=== PATIENT | female | born 1955 | race Caucasian/White ===

== ENCOUNTER 2016-09-22 04:04 | Emergency (ER) | payer MEDICARE, MEDICAID ==
[2016-09-22] MEDS ORDERED: oxyCODONE/Acetamin 5/325 MG* TAB PO ONE ×2 (04:56→05:50)
--- NOTE | 2016-09-22 05:56 | ED ---
Xavier Perez Janilya, scribed for Kianna Conroy MD on 09/22/16 at 0449 . Lower Extremity - HPI Summary HPI Summary: A 61 y/o female was BIBA to [facility] presenting w/ a sudden onset of constant R knee pain starting a few hours ago. Severity rated 7/10. Pt states that she was going to the restroom when her right knee "gave out", causing her to fall. Pt denies head injury or LOC. Pt states it is painful to bear weight or ambulate. Rest makes the pain better. It is also painful to touch. Pt is not on blood thinners. - History of Current Complaint Chief Complaint: EDExtremityLower Stated Complaint: RIGHT KNEE PPAIN Time Seen by Provider: 09/22/16 04:10 Hx Obtained From: Patient Mechanism Of Injury: Fall From A Standing Position Onset of Pain: Hours Onset/Duration: Hours Severity Initially: Moderate Severity Currently: Moderate Pain Intensity: 7 Pain Scale Used: 0-10 Numeric Timing: Constant Associated Signs And Symptoms: Positive: Knee Pain. Negative: Fever Aggravating Factor(s): Standing, Ambulation, Movement Alleviating Factor(s): Rest Able to Bear Weight: No - Allergies/Home Medications Allergies/Adverse Reactions: Allergies Allergy/AdvReac Type Severity Reaction Status Date / Time Metoprolol [From Lopressor] Allergy Intermediate Tachycardia Verified 09/22/16 05:32 Penicillins Allergy Intermediate Rash Verified 09/22/16 05:32 Cefazolin [From Ancef] Allergy Unknown Unknown Verified 09/22/16 05:32 Reaction Details Sulfa Drugs Allergy Unknown Unknown Verified 09/22/16 05:32 Reaction Details Propofol Allergy SCREAMING Verified 09/22/16 05:32 AND THRASHING Morphine AdvReac Intermediate Vomiting Verified 09/22/16 05:32 Naproxen AdvReac Intermediate upset Verified 09/22/16 05:32 stomach, vomiting Citalopram [From Celexa] AdvReac Mild Insomnia Verified 09/22/16 05:32 Tartrazine [From Sonata] AdvReac Mild Insomnia Verified 09/22/16 05:32 Zaleplon [From Sonata] AdvReac Mild Insomnia Verified 09/22/16 05:32 NSAIDs AdvReac Ulcers, GI Verified 09/22/16 05:32 upset PMH/Surg Hx/FS Hx/Imm Hx Previously Healthy: Yes Endocrine/Hematology History: Reports: Hx Blood Transfusions, Hx Thyroid Disease Denies: Hx Anticoagulant Therapy, Hx Blood Disorders, Hx Bone Marrow Disease , Hx Diabetes, Hx Systemic Lupus Erythematosus, Hx Sickle Cell Disease, Hx Anemia, Hx Unexplained Bleeding Cardiovascular History: Reports: Hx Cardiomegaly - SINCE IN HER TEENS, Hx Congestive Heart Failure, Hx Deep Vein Thrombosis - right leg after surgery, Hx Hypercholesterolemia, Hx Hypertension - W/MEDS, Hx Pacemaker/ICD, Other Cardiovascular Problems/Disorders - BRADYCARDIA due to hypothyroidism; pacer not in use Denies: Hx Angina, Hx Coronary Artery Disease, Hx Myocardial Infarction, Hx Valvular Heart Disease Respiratory History: Reports: Other Respiratory Problems/Disorders - sob associated - inspiratory pain left ribs, abdominal distention per pt Denies: Hx Asthma, Hx Chronic Obstructive Pulmonary Disease (COPD) GI History: Reports: Hx Gastroesophageal Reflux Disease, Hx Irritable Bowel, Other GI Disorders - ABDOMEN DISTENDED Denies: Hx Cirrhosis, Hx Ulcer History: Denies: Hx Renal Disease Musculoskeletal History: Reports: Hx Back Problems - back surgery x 3, Hx Orthopedic Injury, Other Musculoskeletal History - knee, hip surgery hx Denies: Hx Bursitis, Hx Congenital Bone Abnormalities, Hx Fibromyalgia, Hx Gout, Hx Osteoporosis, Hx Scoliosis, Hx Tendonitis Sensory History: Reports: Hx Contacts or Glasses Denies: Hx Cataracts, Hx Eye Injury, Hx Eye Prosthesis, Hx Glaucoma, Hx Macular Degeneration, Hx Vision Problem, Hx Deafness, Hx Hearing Aid, Hx Hearing Problem, Other Sensory Impairments Opthamlomology History: Reports: Hx Contacts or Glasses Denies: Hx Cataracts, Hx Eye Injury, Hx Eye Prosthesis, Hx Glaucoma, Hx Macular Degeneration, Hx Vision Problem, Other Sensory Impairments Neurological History: Denies: Hx Dementia, Hx Developmental Delay, Hx Headaches, Hx Migraine, Hx Seizures, Hx Spinal Cord Injury, Hx Transient Ischemic Attacks (TIA), Other Neuro Impairments/Disorders - LOC WITH FALLL Psychiatric History: Reports: Hx Anxiety Denies: Hx Attention Deficit Hyperactivity Disorder, Hx Eating Disorder, Hx Depression, Hx Panic Disorder, Hx Post Traumatic Stress Disorder, Hx Inpatient Treatment, Hx Schizophrenia, Hx Bipolar Disorder, Hx Suicide Attempt, Hx Substance Abuse, Other Psychiatric Issues/Disorders - Cancer History Cancer Type, Location and Year: skin cancer on right leg, removed Hx Chemotherapy: No Hx Radiation Therapy: No - Surgical History Surgery Procedure, Year, and Place: left shoulder surgery Jul 08 2013 csections x 3. partial hysterectomy. 3 back surgeries. right hip REPLACEMENT. LEFT KNEE RECONSTRUCTION. PACEMAKER [id number]. 3 C- SECTIONS. RIGHT SHOULDER ROTATOR CUFF REPAIR - 15 YEARS AGO. UMBILICAL HERNIA REPAIR Hx Anesthesia Reactions: Yes - PROPOFOL REACTION- THRASHING AND SCREAMING Infectious Disease History: No Infectious Disease History: Reports: Hx Clostridium Difficile, Hx of Known/ Suspected MRSA Denies: Hx Hepatitis, Hx Human Immunodeficiency Virus (HIV), Hx Shingles, Hx Tuberculosis, Traveled Outside the [place] in Last 30 Days - Family History Known Family History: Positive: Cardiac Disease, Diabetes - Social History Lives: Alone Alcohol Use: None Hx Substance Use: No Substance Use Type: Reports: None, Prescribed Hx Tobacco Use: No Smoking Status (MU): Never Smoked Tobacco Review of Systems Negative: Fever Positive: Other - R knee pain All Other Systems Reviewed And Are Negative: Yes Physical Exam Triage Information Reviewed: Yes Vital Signs On Initial Exam: Initial Vitals Temp 96.9 F 09/22/16 04:05 Vital Signs Reviewed: Yes Appearance: Positive: Well-Appearing, No Pain Distress Skin: Positive: Warm, Skin Color Reflects Adequate Perfusion Eyes: Positive: EOMI, LOLI ENT: Positive: Pharynx normal, TMs normal Neck: Positive: Supple, Nontender Respiratory/Lung Sounds: Positive: Clear to Auscultation, Breath Sounds Present. Negative: Rales, Rhonchi, Wheezes Cardiovascular: Positive: RRR. Negative: Murmur, Rub, Other - no gallops Abdomen Description: Positive: Nontender, Soft. Negative: Distended, Guarding, Other: - no rebound Bowel Sounds: Positive: Present Musculoskeletal: Positive: Strength/ROM Intact, Other - Tenderness of right knee w/ flexion. Negative: Edema Left, Edema Right Neurological: Positive: Sensory/Motor Intact, Alert, Oriented to Person Place, Time, CN Intact II-III Psychiatric: Positive: Affect/Mood Appropriate Diagnostics - Vital Signs Vital Signs Temp Pulse Resp BP Pulse Ox 09/22/16 04:07 96.9 F 65 18 151/80 93 09/22/16 04:05 96.9 F - Laboratory Lab Statement: Any lab studies that have been ordered have been reviewed, and results considered in the medical decision making process. - Radiology knee xray Xray Interpretation: No Acute Changes - Negative exam. Radiology Interpretation Completed By: ED Physician - Dr. Conroy Lower Extremity Course/Dx - Course Course Of Treatment: A 61 y/o female was BIBA to [facility] presenting w/ a sudden onset of constant R knee pain starting a few hours ago. Severity rated 7/10. Pt states that she was going to the restroom when her right knee "gave out", causing her to fall. Pt denies head injury or LOC. Pt states it is painful to bear weight or ambulate. Rest makes the pain better. It is also painful to touch. On exam pain with Anterior drawer testing but no laxity and no effusion home with percocet and knee immobilizer. Pt is not on blood thinners. - Diagnoses Provider Diagnoses: Knee strain Discharge - Discharge Plan Condition: Stable Disposition: HOME The documentation as recorded by the Xavier espino Janilya accurately reflects the service I personally performed and the decisions made by me, Kianna Conroy MD.
[2016-09-22 06:27] VITALS: BP 140/73
--- NOTE | 2016-09-22 12:48 | RAD ---
Indication: RIGHT knee pain post fall. Comparison: October 21, 2014 Technique: AP, tunnel, crosstable lateral, sunrise views RIGHT knee. Report: Bone density appears decreased throughout. Normal alignment. Negative for joint effusion or fracture. Tricompartmental osteophytosis. Mild medial joint space narrowing. Unremarkable soft tissue contours. IMPRESSION: No traumatic injury evident. Kellgren and Farzad grade 2 osteoarthritis.
== END 2016-09-22 06:22 | disposition home or self-care (01) ==
LOC: ED 04:04
DX: S83.91XA Sprain of unspecified site of right knee, initial encounter (principal); M25.561 Pain in right knee; X58.XXXA Exposure to other specified factors, initial encounter; Y93.9 Activity, unspecified; Y92.9 Unspecified place or not applicable
CPT/HCPCS: 99283; A9270-GY

== ENCOUNTER 2016-10-05 09:05 | Emergency (ER) | payer MEDICARE, MEDICAID ==
[2016-10-05] MEDS ORDERED: Aspirin Low Dose CHEW TAB* 81 MG PO ONE (09:27)
--- NOTE | 2016-10-05 10:10 | RAD ---
INDICATION: Chest pain. COMPARISON: Comparison is made with a prior study from October 03, 2016. TECHNIQUE: A portable view of the chest was obtained. FINDINGS: The heart is mildly enlarged and unchanged. There is a dual-chamber transvenous pacemaker present. The lungs are underinflated and clear. IMPRESSION: NO EVIDENCE FOR ACUTE FINDING.
[2016-10-05 10:16] LABS: Hematocrit 40 % (35-47); Hemoglobin 12.9 g/dl (12.0-16.0); Mean Corpuscular HGB Conc 33 g/dl (31-36); Mean Corpuscular Hemoglobin 29 pg (27-31); Mean Corpuscular Volume 88 fL (80-97); Mean Platelet Volume 8 um3 (7.4-10.4); Red Blood Count 4.48 10^6/ul (4.0-5.4); Red Cell Distribution Width 17 % (10.5-15); White Blood Count 8.9 10^3/ul (3.5-10.8)
[2016-10-05] MEDS: Nitroglycerin TAB 0.4 MG* 0.4 MG TAB SL ONE ×3 (10:17→10:31)
[2016-10-05 10:32] LABS: Albumin 3.9 g/dL (3.2-5.2); BUN/Creatinine Ratio 18.8 (8-20); Calcium 9.1 mg/dL (8.6-10.3); EGFR African American 120.5 (>60); EGFR Non-African American 93.7 (>60); Total Bilirubin 0.7 mg/dL (0.2-1.0); Total Protein 7.9 g/dL (6.4-8.9); Troponin I 0.02 ng/mL (<0.04)
[2016-10-05] MEDS ORDERED: HYDROcodone/ACETAMIN 5-325 MG* 1 TAB PO ONE (11:54)
[2016-10-05] MEDS ORDERED: Iohexol 350* (CONTRAST) 500 ML MDV IV ONE (11:58)
[2016-10-05] MEDS ORDERED: HYDROcodone/ACETAMIN 5-325 MG* 1 TAB ONE (12:54)
[2016-10-05 13:04] VITALS: BP 165/73
--- NOTE | 2016-10-05 13:04 | RAD ---
INDICATION: Chest pain. COMPARISON: Comparison is made with a prior CT angiogram of the chest from October 03, 2016 and a prior chest x-ray study from October 05, 2016. TECHNIQUE: A CT angiogram of the chest was performed with intravenous following intravenous injection of 82 ml of Omnipaque 350 nonionic contrast. Contiguous axial sections were obtained from the lung apices through the lung bases. Images were reconstructed in the coronal and sagittal planes. FINDINGS: The exam is slightly limited in the left lower lobe due to motion artifact. No intraluminal filling defect or pulmonary embolism is seen. There is enlargement of the central pulmonary arteries suggestive of pulmonary artery hypertension. The heart is mildly enlarged. No pericardial effusion is present. There is a multilead transvenous pacemaker present. The thoracic aorta is normal in caliber and demonstrates homogeneous contrast opacification. No significant enlarged mediastinal or hilar lymph nodes are seen. There is mild dependent bilateral lower lobe subsegmental atelectasis. The lungs are otherwise clear. No pleural effusion is seen. Images of the upper abdomen demonstrate enlargement and diffuse fatty infiltration of the liver. There are postsurgical changes as noted in the visualized portion of the lower dorsal spine. No significant focal osseous abnormality is seen. IMPRESSION: 1. SLIGHTLY LIMITED STUDY, NO EVIDENCE FOR PULMONARY EMBOLISM. 2. HEPATOMEGALY AND HEPATIC STEATOSIS.
--- NOTE | 2016-10-05 14:17 | ED ---
Veronica Perez SooYoung, scribed for Pete Monroe MD on 10/05/16 at 0921 . HPI Chest Pain - HPI Summary HPI Summary: A 61 y/o F GABBIE presents to ED with c/o acute CP onset 0300 while asleep, pain woke her up. Associated sx: vomiting, dyspnea, dizzy, LUE numbness and tingling. Denies: anxiety, depression. She took a baby aspirin at home but was unable to keep it down. Pt states being under a lot of stress this week. PSHx: catheter placed in October/2015. Nonsmoker, nondrinker. PCP is Dr. Cavanaugh. Mild Disabilities Teacher is Dr. Hdez. - History of Current Complaint Chief Complaint: EDChestPainROMI Time Seen by Provider: 10/05/16 09:14 Onset/Duration: Started Hours Ago, Still Present Timing: Constant Initial Severity: Moderate Current Severity: Moderate Pain Intensity: 7 Pain Scale Used: 0-10 Numeric Associated Signs and Symptoms: Positive: Recent Stress, Numbness, Tingling, Dizziness, Shortness of Breath - dyspnea, Vomiting - Additional Pertinent History Primary Care Physician: [id number] - Allergy/Home Medications Allergies/Adverse Reactions: Allergies Allergy/AdvReac Type Severity Reaction Status Date / Time Metoprolol [From Lopressor] Allergy Intermediate Tachycardia Verified 10/05/16 09:18 Penicillins Allergy Intermediate Rash Verified 10/05/16 09:18 Cefazolin [From Ancef] Allergy Unknown Unknown Verified 10/05/16 09:18 Reaction Details Sulfa Drugs Allergy Unknown Unknown Verified 10/05/16 09:18 Reaction Details Propofol Allergy SCREAMING Verified 10/05/16 09:18 AND THRASHING Morphine AdvReac Intermediate Vomiting Verified 10/05/16 09:18 Naproxen AdvReac Intermediate upset Verified 10/05/16 09:18 stomach, vomiting Citalopram [From Celexa] AdvReac Mild Insomnia Verified 10/05/16 09:18 Tartrazine [From Sonata] AdvReac Mild Insomnia Verified 10/05/16 09:18 Zaleplon [From Sonata] AdvReac Mild Insomnia Verified 10/05/16 09:18 NSAIDs AdvReac Ulcers, GI Verified 10/05/16 09:18 upset PMH/Surg Hx/FS Hx/Imm Hx Previously Healthy: No Endocrine/Hematology History: Reports: Hx Blood Transfusions, Hx Thyroid Disease Denies: Hx Anticoagulant Therapy, Hx Blood Disorders, Hx Bone Marrow Disease , Hx Diabetes, Hx Systemic Lupus Erythematosus, Hx Sickle Cell Disease, Hx Anemia, Hx Unexplained Bleeding Cardiovascular History: Reports: Hx Cardiomegaly - SINCE IN HER TEENS, Hx Congestive Heart Failure, Hx Deep Vein Thrombosis - right leg after surgery, Hx Hypercholesterolemia, Hx Hypertension - W/MEDS, Hx Pacemaker/ICD, Other Cardiovascular Problems/Disorders - BRADYCARDIA due to hypothyroidism; pacer not in use Denies: Hx Angina, Hx Coronary Artery Disease, Hx Myocardial Infarction, Hx Valvular Heart Disease Respiratory History: Reports: Other Respiratory Problems/Disorders - sob associated - inspiratory pain left ribs, abdominal distention per pt Denies: Hx Asthma, Hx Chronic Obstructive Pulmonary Disease (COPD) GI History: Reports: Hx Gastroesophageal Reflux Disease, Hx Irritable Bowel, Other GI Disorders - ABDOMEN DISTENDED Denies: Hx Cirrhosis, Hx Ulcer History: Denies: Hx Renal Disease Musculoskeletal History: Reports: Hx Back Problems - back surgery x 3, Hx Orthopedic Injury, Other Musculoskeletal History - knee, hip surgery hx Denies: Hx Bursitis, Hx Congenital Bone Abnormalities, Hx Fibromyalgia, Hx Gout, Hx Osteoporosis, Hx Scoliosis, Hx Tendonitis Sensory History: Reports: Hx Contacts or Glasses Denies: Hx Cataracts, Hx Eye Injury, Hx Eye Prosthesis, Hx Glaucoma, Hx Macular Degeneration, Hx Vision Problem, Hx Deafness, Hx Hearing Aid, Hx Hearing Problem, Other Sensory Impairments Opthamlomology History: Reports: Hx Contacts or Glasses Denies: Hx Cataracts, Hx Eye Injury, Hx Eye Prosthesis, Hx Glaucoma, Hx Macular Degeneration, Hx Vision Problem, Other Sensory Impairments Neurological History: Denies: Hx Dementia, Hx Developmental Delay, Hx Headaches, Hx Migraine, Hx Seizures, Hx Spinal Cord Injury, Hx Transient Ischemic Attacks (TIA), Other Neuro Impairments/Disorders - LOC WITH FALLL Psychiatric History: Reports: Hx Anxiety Denies: Hx Attention Deficit Hyperactivity Disorder, Hx Eating Disorder, Hx Depression, Hx Panic Disorder, Hx Post Traumatic Stress Disorder, Hx Inpatient Treatment, Hx Schizophrenia, Hx Bipolar Disorder, Hx Suicide Attempt, Hx Substance Abuse, Other Psychiatric Issues/Disorders - Cancer History Cancer Type, Location and Year: skin cancer on right leg, removed Hx Chemotherapy: No Hx Radiation Therapy: No - Surgical History Surgery Procedure, Year, and Place: left shoulder surgery Feb 13 2014 csections x 3. partial hysterectomy. 3 back surgeries. right hip REPLACEMENT. LEFT KNEE RECONSTRUCTION. PACEMAKER [id number]. 3 C- SECTIONS. RIGHT SHOULDER ROTATOR CUFF REPAIR - 15 YEARS AGO. UMBILICAL HERNIA REPAIR Hx Anesthesia Reactions: Yes - PROPOFOL REACTION- THRASHING AND SCREAMING Infectious Disease History: Reports: Hx Clostridium Difficile, Hx of Known/ Suspected MRSA Denies: Hx Hepatitis, Hx Human Immunodeficiency Virus (HIV), Hx Shingles, Hx Tuberculosis - Family History Known Family History: Positive: Cardiac Disease - CAD, Diabetes, Other - Breast CA - Social History Occupation: Disabled Lives: Alone Alcohol Use: None Hx Substance Use: No Substance Use Type: Reports: None, Prescribed Hx Tobacco Use: No Smoking Status (MU): Never Smoked Tobacco Review of Systems Negative: Fever, Chills Negative: Erythema Negative: Sore Throat Positive: Chest Pain Positive: Shortness Of Breath - dyspnea. Negative: Cough Positive: Vomiting. Negative: Abdominal Pain, Nausea Negative: dysuria, hematuria Positive: Other - pos: LUE numbness/tingling. Negative: Myalgia, Edema Negative: Rash Psychological: Other - pos: dizzyness All Other Systems Reviewed And Are Negative: Yes Physical Exam - Summary Physical Exam Summary: Constitutional: Well-developed, Well-nourished, Alert. (-) Distressed Skin: Warm, Dry HENT: Normocephalic; Atraumatic Eyes: Conjunctiva normal Neck: Musculoskeletal ROM normal neck. (-) JVD, (-) Stridor, (-) Tracheal deviation Cardio: Rhythm regular, rate normal, Heart sounds normal; Intact distal pulses; The pedal pulses are 2+ and symmetric. Radial pulses are 2+ and symmetric. (-) Murmur Pulmonary/Chest wall: Effort normal. (-) Respiratory distress, (-) Wheezes, (-) Rales Abd: Soft, (-) Tenderness, (-) Distension, (-) Guarding, (-) Rebound Musculoskeletal: (-) Edema Lymph: (-) Cervical adenopathy Neuro: Alert, Oriented x3 Psych: Mood and affect Normal Triage Information Reviewed: Yes Vital Signs On Initial Exam: Initial Vitals Temp Pulse Resp BP Pulse Ox 36.8 C 59 20 156/90 95 10/05/16 09:14 10/05/16 09:14 10/05/16 09:14 10/05/16 09:14 10/05/16 09:14 Vital Signs Reviewed: Yes Diagnostics - Vital Signs Vital Signs Temp Pulse Resp BP Pulse Ox 10/05/16 13:00 59 15 97 10/05/16 12:00 62 16 165/73 96 10/05/16 11:30 60 14 155/69 96 10/05/16 11:00 59 14 158/72 96 10/05/16 10:41 66 14 158/72 96 10/05/16 10:30 69 14 143/70 95 10/05/16 10:25 64 14 156/72 96 10/05/16 10:00 14 10/05/16 09:34 96 10/05/16 09:33 60 15 96 10/05/16 09:22 60 10/05/16 09:14 36.8 C 59 20 156/90 95 - Laboratory Lab Results: Lab Results 10/05/16 10/05/16 10/05/16 Range/Units 10:07 10:07 10:07 WBC 8.9 (3.5-10.8) 10^3/ul RBC 4.48 (4.0-5.4) 10^6/ul Hgb 12.9 (12.0-16.0) g/dl Hct 40 (35-47) % MCV 88 (80-97) fL MCH 29 (27-31) pg MCHC 33 (31-36) g/dl RDW 17 H (10.5-15) % Plt Count 317 (150-450) 10^3/ul MPV 8 (7.4-10.4) um3 Neut % (Auto) 64.4 (38-83) % Lymph % (Auto) 26.3 (25-47) % [place] % (Auto) 8.2 (1-9) % Eos % (Auto) 0.6 (0-6) % Baso % (Auto) 0.5 (0-2) % Absolute Neuts (auto) 5.7 (1.5-7.7) 10^3/ul Absolute Lymphs (auto) 2.3 (1.0-4.8) 10^3/ul Absolute Monos (auto) 0.7 (0-0.8) 10^3/ul Absolute Eos (auto) 0 (0-0.6) 10^3/ul Absolute Basos (auto) 0 (0-0.2) 10^3/ul Absolute Nucleated RBC 0.01 10^3/ul Nucleated RBC % 0.1 D-Dimer, Quantitative (Less Than 230) ng/mL Sodium 137 (133-145) mmol/L Potassium 4.0 (3.5-5.0) mmol/L Chloride 101 (101-111) mmol/L Carbon Dioxide 28 (22-32) mmol/L Anion Gap 8 (2-11) mmol/L BUN 12 (6-24) mg/dL Creatinine 0.64 (0.51-0.95) mg/dL Est GFR ( Amer) 120.5 (>60) Est GFR (Non-Af Amer) 93.7 (>60) BUN/Creatinine Ratio 18.8 (8-20) Glucose 133 H (70-100) mg/dL Lactic Acid 0.9 (0.5-2.0) mmol/L Calcium 9.1 (8.6-10.3) mg/dL Total Bilirubin 0.70 (0.2-1.0) mg/dL AST 53 H (13-39) U/L ALT 43 (7-52) U/L Alkaline Phosphatase 112 H (34-104) U/L Troponin I 0.02 (<0.04) ng/mL Total Protein 7.9 (6.4-8.9) g/dL Albumin 3.9 (3.2-5.2) g/dL Globulin 4.0 (2-4) g/dL Albumin/Globulin Ratio 1.0 (1-3) 10/05/16 10/05/16 Range/Units 10:07 13:02 WBC (3.5-10.8) 10^3/ul RBC (4.0-5.4) 10^6/ul Hgb (12.0-16.0) g/dl Hct (35-47) % MCV (80-97) fL MCH (27-31) pg MCHC (31-36) g/dl RDW (10.5-15) % Plt Count (150-450) 10^3/ul MPV (7.4-10.4) um3 Neut % (Auto) (38-83) % Lymph % (Auto) (25-47) % [place] % (Auto) (1-9) % Eos % (Auto) (0-6) % Baso % (Auto) (0-2) % Absolute Neuts (auto) (1.5-7.7) 10^3/ul Absolute Lymphs (auto) (1.0-4.8) 10^3/ul Absolute Monos (auto) (0-0.8) 10^3/ul Absolute Eos (auto) (0-0.6) 10^3/ul Absolute Basos (auto) (0-0.2) 10^3/ul Absolute Nucleated RBC 10^3/ul Nucleated RBC % D-Dimer, Quantitative 469 H (Less Than 230) ng/mL Sodium (133-145) mmol/L Potassium (3.5-5.0) mmol/L Chloride (101-111) mmol/L Carbon Dioxide (22-32) mmol/L Anion Gap (2-11) mmol/L BUN (6-24) mg/dL Creatinine (0.51-0.95) mg/dL Est GFR ( Amer) (>60) Est GFR (Non-Af Amer) (>60) BUN/Creatinine Ratio (8-20) Glucose (70-100) mg/dL Lactic Acid (0.5-2.0) mmol/L Calcium (8.6-10.3) mg/dL Total Bilirubin (0.2-1.0) mg/dL AST (13-39) U/L ALT (7-52) U/L Alkaline Phosphatase (34-104) U/L Troponin I 0.03 (<0.04) ng/mL Total Protein (6.4-8.9) g/dL Albumin (3.2-5.2) g/dL Globulin (2-4) g/dL Albumin/Globulin Ratio (1-3) Result Diagrams: 10/05/16 10:07 10/05/16 10:07 Lab Statement: Any lab studies that have been ordered have been reviewed, and results considered in the medical decision making process. - Radiology CXR Xray Interpretation: No Acute Changes - Impression: No evidence for acute finding. Radiology Interpretation Completed By: Radiologist - CT CHEST CTA CT Interpretation: Positive (See Comments) - IMPRESSION: 1. SLIGHTLY LIMITED STUDY, NO EVIDENCE FOR PULMONARY EMBOLISM. 2. HEPATOMEGALY AND HEPATIC STEATOSIS. CT Interpretation Completed By: Radiologist - EKG 1 EKG Interpretation: 60 bpm, atrial paced rhythm, TWI V4-V6, ST depression V5, V6 , no STEMI EKG Comparison: No Significant Change - from 10/03/2016 Re-Evaluation - Re-Evaluation 1 Re-Evaluation Time: 13:40 Change: Unchanged Comment: Discussing results with pt. Chest Pain Course/Dx - Course Course Of Treatment: Pt is a poor historian. Pt is 61 y/o F BIBA presenting with acute CP onset 0300 that woke her from sleep. Associated sx: vomiting, dyspnea, dizzy, LUE numbness and tingling. She took a baby aspirin at home but was unable to keep it down. Pt states being under a lot of stress this week. PSHx: catheter. Nonsmoker, nondrinker. PCP is Dr. Cavanaugh. Mild Disabilities Teacher is Dr. Hdez. Pt given aspirin, Nitro in ED. CXR is negative. Two trops are negative. Chest CTA shows "1. SLIGHTLY LIMITED STUDY, NO EVIDENCE FOR PULMONARY EMBOLISM. 2. HEPATOMEGALY AND HEPATIC STEATOSIS." Pt's pain is reproducible with movement. After multiple consults, Dr. Alex, cardiology, recommends D/C home. Dr. Summers, hospitalist, recommended D/C based on knowledge of patient's presentation today and work up two days ago. Pt had a negative cardiac cath in 10/2015. Will D/C home to f/u with PCP on Friday. Dr. Alex felt that the nuclear stress test represented artifact/attenuation due to breast tissue rather than ischemia. The patient was very strongly encouraged to return to the ED for any changing, persistent or worsening symptoms for further workup. - Diagnoses Provider Diagnoses: Chest pain - Provider Notifications Discussed Care Of Patient With: 1006: Spoke to Dr. Alex, cardiology, need records of her cardiac catheter. 1100: Spoke to Dr. Alex, recommends admission and cardiac cath on Friday. 1106: Spoke to Dr. Summers. She declines admission based on her knowledge of pt today and previous workup. 1120: Spoke to Dr. Alex: after obtaining new info regarding cardiac cath in 2015, felt risk for acute coronary syndrome was very low, recommends D/C. Discharge - Discharge Plan Condition: Stable Disposition: HOME Patient Education Materials: Chest Pain (ED) Referrals: Olga Cavanaugh MD [Primary Care Provider] - 2 Days (Follow up on Friday.) Additional Instructions: Return to the emergency department for changing or worsening symptoms. Follow up with primary care provider on Friday. The documentation as recorded by the Veronica espino SooYoung accurately reflects the service I personally performed and the decisions made by me, Pete Monroe MD.
--- NOTE | 2016-10-05 16:02 | CONS ---
CC: Dr. Olga Cavanaugh; Dr. Abelino Hdez. CARDIOLOGY CONSULTATION: DATE OF CONSULTATION: 10/05/16 INDICATION FOR CONSULTATION: Chest pain. HISTORY OF PRESENT ILLNESS: The patient is a 61-year-old female with a history of diabetes, obesity, hypertension, bradycardia, who was admitted to the emergency room with chest pain. The patient states she awoke at 3:30 in the morning with severe chest pain, it was a crushing chest pain in the center of her chest. It radiated to her left jaw and shoulder. She rated the discomfort as 6/10, and she immediately called the ambulance. On arrival to the emergency room, she had chest pain that was in the center of her chest. She did not had any radiation at that time. She was given sublingual nitroglycerin and morphine , which improved her chest pain. The patient was recently admitted to the hospital here at [facility] last week with chest pain. She underwent a chemical nuclear stress test, which showed a thick anterior wall defect that reversed with attenuation correction. Her LV function was normal at 63%. She had no wall motion abnormality. She had mildly elevated TID at 1.29. The patient did have a cardiac catheterization in 2010 at [facility] in [place], [place] , which was normal. She also had a cardiac catheterization at [facility] in October 2015, which showed normal coronary arteries. PAST MEDICAL HISTORY: Significant for hypertension, hypothyroidism, hyperlipidemia, obesity, irritable bowel syndrome. She had knee replacement surgery in May 2006. OUTPATIENT MEDICATIONS: Avapro 150 mg a day, aspirin 81 mg a day, multivitamin a day, levothyroxine 75 mcg a day, Lasix 40 mg a day, Ambien 10 mg at night p.r.n., simvastatin 40 mg a day, oxycodone p.r.n., metformin 1000 mg b.i.d. ALLERGIES: She is intolerant of ANCEF, LOPRESSOR, MORPHINE, CIPRO, and SULFA MEDICATIONS. SOCIAL HISTORY: She lives alone. She denied tobacco or alcohol use. Her healthcare proxy is her sister. REVIEW OF SYSTEMS: Negative for fevers and chills. Negative for changes in bowel or bladder habits. PHYSICAL EXAMINATION: Height is 5 feet 4 inches, weight is 165 pounds. Sclerae anicteric. Oropharynx is pink without erythema. Carotids are 2+ without bruits. JVD is normal. Thyroid is normal. Cardiac Exam: S1, S2 without any murmurs, rubs, or gallops. Lungs are clear to auscultation bilaterally. No dullness to percussion. Abdomen is obese, soft, nontender, and nondistended with normoactive bowel sounds. Extremities show no edema. She has 2+ pulses throughout. The patient is awake, alert, and oriented. She moves all 4 extremities equally. LABORATORY STUDIES: CBC within normal limits. Chemistries within normal limits. Troponin is normal at 0.02. EKG demonstrates normal sinus rhythm with T-wave inversions in V4 through V6 with slightly prolonged QT interval. The patient did have a CT angiogram of her chest on 10/03/16, which was negative for pulmonary embolism. IMPRESSION: This is a 61-year-old female admitted to the emergency room with chest pain. The patient was just recently in the hospital with chest pain. She had an abnormal stress test as described above; however, her nuclear images show a fixed defect in her anterior wall, which completely reverses with attenuation from correction. I think her anterior fixed defect is due to soft tissue attenuation and not due to true ischemia. The patient has a normal cardiac catheterization in October 2015, and a normal cardiac catheterization in 2010 at [facility]. At this point, I do not think the patient's chest pain is cardiac in origin. It is not due to cardiac ischemia. There is no evidence of pericarditis. At this point, the patient was treated for her noncardiac chest pain through the emergency room. [id number] #: [id number] MTDD
== END 2016-10-05 14:34 | disposition home or self-care (01) ==
LOC: ED 09:05
DX: R07.9 Chest pain, unspecified (principal); Z85.828 Personal history of other malignant neoplasm of skin; Z88.0 Allergy status to penicillin; Z88.2 Allergy status to sulfonamides; F41.9 Anxiety disorder, unspecified
CPT/HCPCS: 36415; 71010; 71275; 80053; 83605; 84484; 85025; 85379; 93005; 99284; A9270-GY; Q9967

== ENCOUNTER 2016-10-16 20:29 | Emergency (ER) | payer MEDICARE, MEDICAID ==
[2016-10-16 21:50] LABS: Hematocrit 39 % (35-47); Hemoglobin 12.5 g/dl (12.0-16.0); Mean Corpuscular HGB Conc 32 g/dl (31-36); Mean Corpuscular Hemoglobin 29 pg (27-31); Mean Corpuscular Volume 88 fL (80-97); Mean Platelet Volume 8 um3 (7.4-10.4); Red Blood Count 4.36 10^6/ul (4.0-5.4); Red Cell Distribution Width 18 % (10.5-15); White Blood Count 8.3 10^3/ul (3.5-10.8)
[2016-10-16 22:05] LABS: Albumin 3.9 g/dL (3.2-5.2); BUN/Creatinine Ratio 14.8 (8-20); Calcium 9.3 mg/dL (8.6-10.3); EGFR African American 127.4 (>60); EGFR Non-African American 99.1 (>60); Globulin 3.7 g/dL (2-4); Magnesium 1.8 mg/dL (1.9-2.7); Potassium 3.6 mmol/L (3.5-5.0); Total Bilirubin 0.8 mg/dL (0.2-1.0); Total Protein 7.6 g/dL (6.4-8.9)
[2016-10-16 22:08] LABS: Troponin I 0.03 ng/mL (<0.04)
[2016-10-16 22:33] LABS: TSH (Thyroid Stimulating Horm) 0.71 mcIU/mL (0.34-5.60)
--- NOTE | 2016-10-16 22:39 | RAD ---
INDICATION: Syncope COMPARISON: Most recent CT of the brain is dated July 06, 2015 TECHNIQUE: Contiguous axial sections of the brain were obtained from the skull base to the vertex without contrast. FINDINGS: The ventricles, cisterns and sulci are within normal limits. The freeman-white matter differentiation is adequately maintained and there is no sulcal effacement. No significant focal abnormality or mass effect is present. There is no evidence for intracranial hemorrhage. No significant focal osseous abnormality is present. The mastoid air cells are well-aerated. Again seen is near complete opacification of the left sphenoid sinus. IMPRESSION: 1. No calvarial fracture or acute intracranial hemorrhage. 2. 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 Further characterization could be made with direct visualization.
--- NOTE | 2016-10-16 23:08 | ED ---
Fercho Perez Benjamin, scribed for Calvin Lopez MD on 10/16/16 at 2131 . Syncope/Near Syncope - HPI Summary HPI Summary: 61yo female who has been having CP for about a week now. Today, pt had a syncopal episode while walking. Pt hit her head on the right side upon passing out. Pt also states she hasnt been feeling good for a week. - History Of Current Complaint Chief Complaint: EDChestPainROMI Time Seen by Provider: 10/16/16 21:25 Hx Obtained From: Patient Onset/Duration: Sudden Onset, Lasting Minutes, Still Present Timing: Intermittent Episode Lasting Context: Unwitnessed Activity At Onset: Other - walking Associated Head Trauma: Yes Aggravating Factor(s): Nothing Alleviating Factor(s): Nothing Associated Signs And Symptoms: Chest Pain, Weakness - Allergies/Home Medications Allergies/Adverse Reactions: Allergies Allergy/AdvReac Type Severity Reaction Status Date / Time Metoprolol [From Lopressor] Allergy Intermediate Tachycardia Verified 10/16/16 20:43 Penicillins Allergy Intermediate Rash Verified 10/16/16 20:43 Cefazolin [From Ancef] Allergy Unknown Unknown Verified 10/16/16 20:43 Reaction Details Sulfa Drugs Allergy Unknown Unknown Verified 10/16/16 20:43 Reaction Details Propofol Allergy SCREAMING Verified 10/16/16 20:43 AND THRASHING Morphine AdvReac Intermediate Vomiting Verified 10/16/16 20:43 Naproxen AdvReac Intermediate upset Verified 10/16/16 20:43 stomach, vomiting Citalopram [From Celexa] AdvReac Mild Insomnia Verified 10/16/16 20:43 Tartrazine [From Sonata] AdvReac Mild Insomnia Verified 10/16/16 20:43 Zaleplon [From Sonata] AdvReac Mild Insomnia Verified 10/16/16 20:43 NSAIDs AdvReac Ulcers, GI Verified 10/16/16 20:43 upset PMH/Surg Hx/FS Hx/Imm Hx Endocrine/Hematology History: Reports: Hx Blood Transfusions, Hx Thyroid Disease Denies: Hx Anticoagulant Therapy, Hx Blood Disorders, Hx Bone Marrow Disease , Hx Diabetes, Hx Systemic Lupus Erythematosus, Hx Sickle Cell Disease, Hx Anemia, Hx Unexplained Bleeding Cardiovascular History: Reports: Hx Cardiomegaly - SINCE IN HER TEENS, Hx Congestive Heart Failure, Hx Deep Vein Thrombosis - right leg after surgery, Hx Hypercholesterolemia, Hx Hypertension - W/MEDS, Hx Pacemaker/ICD, Other Cardiovascular Problems/Disorders - BRADYCARDIA due to hypothyroidism; pacer not in use Denies: Hx Angina, Hx Coronary Artery Disease, Hx Myocardial Infarction, Hx Valvular Heart Disease Respiratory History: Reports: Other Respiratory Problems/Disorders - sob associated - inspiratory pain left ribs, abdominal distention per pt Denies: Hx Asthma, Hx Chronic Obstructive Pulmonary Disease (COPD) GI History: Reports: Hx Gastroesophageal Reflux Disease, Hx Irritable Bowel, Other GI Disorders - ABDOMEN DISTENDED Denies: Hx Cirrhosis, Hx Ulcer History: Denies: Hx Renal Disease Musculoskeletal History: Reports: Hx Back Problems - back surgery x 3, Hx Orthopedic Injury, Other Musculoskeletal History - knee, hip surgery hx Denies: Hx Bursitis, Hx Congenital Bone Abnormalities, Hx Fibromyalgia, Hx Gout, Hx Osteoporosis, Hx Scoliosis, Hx Tendonitis Sensory History: Reports: Hx Contacts or Glasses Denies: Hx Cataracts, Hx Eye Injury, Hx Eye Prosthesis, Hx Glaucoma, Hx Macular Degeneration, Hx Vision Problem, Hx Deafness, Hx Hearing Aid, Hx Hearing Problem, Other Sensory Impairments Opthamlomology History: Reports: Hx Contacts or Glasses Denies: Hx Cataracts, Hx Eye Injury, Hx Eye Prosthesis, Hx Glaucoma, Hx Macular Degeneration, Hx Vision Problem, Other Sensory Impairments Neurological History: Denies: Hx Dementia, Hx Developmental Delay, Hx Headaches, Hx Migraine, Hx Seizures, Hx Spinal Cord Injury, Hx Transient Ischemic Attacks (TIA), Other Neuro Impairments/Disorders - LOC WITH FALLL Psychiatric History: Reports: Hx Anxiety Denies: Hx Attention Deficit Hyperactivity Disorder, Hx Eating Disorder, Hx Depression, Hx Panic Disorder, Hx Post Traumatic Stress Disorder, Hx Inpatient Treatment, Hx Schizophrenia, Hx Bipolar Disorder, Hx Suicide Attempt, Hx Substance Abuse, Other Psychiatric Issues/Disorders - Cancer History Cancer Type, Location and Year: skin cancer on right leg, removed Hx Chemotherapy: No Hx Radiation Therapy: No - Surgical History Surgery Procedure, Year, and Place: left shoulder surgery Jul 08 2013 csections x 3. partial hysterectomy. 3 back surgeries. right hip REPLACEMENT. LEFT KNEE RECONSTRUCTION. PACEMAKER [id number]. 3 C- SECTIONS. RIGHT SHOULDER ROTATOR CUFF REPAIR - 15 YEARS AGO. UMBILICAL HERNIA REPAIR Hx Anesthesia Reactions: Yes - PROPOFOL REACTION- THRASHING AND SCREAMING Infectious Disease History: Yes Infectious Disease History: Reports: Hx Clostridium Difficile, Hx of Known/ Suspected MRSA Denies: Hx Hepatitis, Hx Human Immunodeficiency Virus (HIV), Hx Shingles, Hx Tuberculosis, Traveled Outside the [place] in Last 30 Days - Family History Known Family History: Positive: Cardiac Disease - CAD, Diabetes, Other - Breast CA - Social History Occupation: Disabled Lives: Alone Alcohol Use: None Hx Substance Use: No Substance Use Type: Reports: None, Prescribed Hx Tobacco Use: No Smoking Status (MU): Never Smoked Tobacco Review of Systems Constitutional: Negative Eyes: Negative ENT: Negative Positive: Chest Pain Respiratory: Negative Gastrointestinal: Negative Genitourinary: Negative Musculoskeletal: Negative Skin: Negative Neurological: Other - head injury Positive: Weakness, Syncope Psychological: Normal All Other Systems Reviewed And Are Negative: Yes Physical Exam Triage Information Reviewed: Yes Vital Signs On Initial Exam: Initial Vitals Temp Pulse Resp BP Pulse Ox 98.6 F 60 18 186/74 96 10/16/16 20:39 10/16/16 20:39 10/16/16 20:39 10/16/16 20:39 10/16/16 20:39 Vital Signs Reviewed: Yes Appearance: Positive: Well-Appearing, No Pain Distress Skin: Positive: Warm Head/Face: Positive: Normal Head/Face Inspection Eyes: Positive: EOMI, LOLI ENT: Positive: Hearing grossly normal Neck: Positive: Supple Respiratory/Lung Sounds: Positive: Breath Sounds Present Cardiovascular: Positive: RRR Abdomen Description: Positive: Nontender, Soft Bowel Sounds: Positive: Present Musculoskeletal: Positive: Strength/ROM Intact Neurological: Positive: Normal Gait Psychiatric: Positive: Affect/Mood Appropriate Diagnostics - Vital Signs Vital Signs Temp Pulse Resp BP Pulse Ox 10/16/16 20:39 98.6 F 60 18 186/74 96 - Laboratory Lab Results: Lab Results 10/16/16 10/16/16 10/16/16 Range/Units 21:41 21:41 21:41 WBC 8.3 (3.5-10.8) 10^3/ul RBC 4.36 (4.0-5.4) 10^6/ul Hgb 12.5 (12.0-16.0) g/dl Hct 39 (35-47) % MCV 88 (80-97) fL MCH 29 (27-31) pg MCHC 32 (31-36) g/dl RDW 18 H (10.5-15) % Plt Count 322 (150-450) 10^3/ul MPV 8 (7.4-10.4) um3 Neut % (Auto) 65.8 (38-83) % Lymph % (Auto) 25.5 (25-47) % [place] % (Auto) 7.7 (1-9) % Eos % (Auto) 0.5 (0-6) % Baso % (Auto) 0.5 (0-2) % Absolute Neuts (auto) 5.5 (1.5-7.7) 10^3/ul Absolute Lymphs (auto) 2.1 (1.0-4.8) 10^3/ul Absolute Monos (auto) 0.6 (0-0.8) 10^3/ul Absolute Eos (auto) 0 (0-0.6) 10^3/ul Absolute Basos (auto) 0 (0-0.2) 10^3/ul Absolute Nucleated RBC 0.01 10^3/ul Nucleated RBC % 0.1 Sodium 141 (133-145) mmol/L Potassium 3.6 (3.5-5.0) mmol/L Chloride 99 L (101-111) mmol/L Carbon Dioxide 29 (22-32) mmol/L Anion Gap 13 H (2-11) mmol/L BUN 9 (6-24) mg/dL Creatinine 0.61 (0.51-0.95) mg/dL Est GFR ( Amer) 127.4 (>60) Est GFR (Non-Af Amer) 99.1 (>60) BUN/Creatinine Ratio 14.8 (8-20) Glucose 121 H (70-100) mg/dL Lactic Acid 1.1 (0.5-2.0) mmol/L Calcium 9.3 (8.6-10.3) mg/dL Magnesium 1.8 L (1.9-2.7) mg/dL Total Bilirubin 0.80 (0.2-1.0) mg/dL AST 41 H (13-39) U/L ALT 28 (7-52) U/L Alkaline Phosphatase 105 H (34-104) U/L Troponin I 0.03 (<0.04) ng/mL Total Protein 7.6 (6.4-8.9) g/dL Albumin 3.9 (3.2-5.2) g/dL Globulin 3.7 (2-4) g/dL Albumin/Globulin Ratio 1.1 (1-3) TSH 0.71 (0.34-5.60) mcIU/mL Result Diagrams: 10/16/16 21:41 10/16/16 21:41 Lab Statement: Any lab studies that have been ordered have been reviewed, and results considered in the medical decision making process. - CT Brain CT CT Interpretation: No Acute Changes - IMPRESSION: 1. No calvarial fracture or acute intracranial hemorrhage. 2. 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 Further characterization could be made with direct visualization. CT Interpretation Completed By: Radiologist Re-Evaluation - Re-Evaluation First Eval Change: Improved - pain free, cardiac cath 2016, nl coronaries, will d/c f/u pcp Course/Dx - Diagnoses Provider Diagnoses: Chest pain Discharge - Discharge Plan Condition: Stable Disposition: HOME Patient Education Materials: Chest Pain (ED) Referrals: Olga Cavanaugh MD [Primary Care Provider] - The documentation as recorded by the Fercho espino Benjamin accurately reflects the service I personally performed and the decisions made by , Calvin Lopez MD.
[2016-10-17 01:30] VITALS: BP 120/65
== END 2016-10-17 01:26 | disposition home or self-care (01) ==
LOC: ED 20:29
DX: R07.9 Chest pain, unspecified (principal); I51.7 Cardiomegaly; E78.00 Pure hypercholesterolemia, unspecified; I50.9 Heart failure, unspecified; I10 Essential (primary) hypertension; Z95.810 Presence of automatic (implantable) cardiac defibrillator; E03.9 Hypothyroidism, unspecified
CPT/HCPCS: 36415; 70450; 80053; 83605; 83735; 84443; 84484; 85025; 93005; 99283

== ENCOUNTER 2016-12-31 04:53 | Emergency (ER) | payer MEDICARE, MEDICAID ==
[2016-12-31] MEDS ORDERED: NS 0.9% 1000 ML* 1,000 ML IV ONE (05:04)
[2016-12-31] MEDS ORDERED: Morphine INJ* 4 MG/ML 1 ML SYRINGE IV ONE ×2 (05:15→06:17)
[2016-12-31 05:41] LABS: Hematocrit 35 % (35-47); Hemoglobin 11.5 g/dl (12.0-16.0); Mean Corpuscular HGB Conc 33 g/dl (31-36); Mean Corpuscular Hemoglobin 30 pg (27-31); Mean Corpuscular Volume 93 fL (80-97); Mean Platelet Volume 8 um3 (7.4-10.4); Red Blood Count 3.79 10^6/ul (4.0-5.4); Red Cell Distribution Width 17 % (10.5-15); White Blood Count 8.4 10^3/ul (3.5-10.8)
[2016-12-31 05:59] LABS: Albumin 3.9 g/dL (3.2-5.2); BUN/Creatinine Ratio 20.9 (8-20); Calcium 9.3 mg/dL (8.6-10.3); EGFR African American 114.3 (>60); EGFR Non-African American 88.9 (>60); Globulin 3.5 g/dL (2-4); Potassium 4.3 mmol/L (3.5-5.0); Total Bilirubin 0.5 mg/dL (0.2-1.0); Total Protein 7.4 g/dL (6.4-8.9)
[2016-12-31 06:01] LABS: Troponin I 0.03 ng/mL (<0.04)
[2016-12-31] MEDS ORDERED: LORazepam INJ* 2 MG/ML 1 ML VIAL IV PUSH ONE (06:17)
--- NOTE | 2016-12-31 06:42 | ED ---
I, Oh,Soohyun, scribed for Kevin Henley MD on 12/31/16 at 0515 . HPI Chest Pain - HPI Summary HPI Summary: This 61 y/o female presents to ED for left anterior chest pain since tonight. Positive SOB, BLE edema, and diffuse "blisters" BLE. Pt was last seen in September 2016 for similar complaint. PMHx includes CAD, HTN, HLD. Gallbladder still intact. Pt denies any stent placement or MS. Per EMR there has been two stent placements. NTG given INTELLIGENCE SPECIALIST as EMS did little to alleviate the pain. She is on daily baby ASA. Negative fever or chills. Positive head congestion. - History of Current Complaint Chief Complaint: EDChestPainROMI Time Seen by Provider: 12/31/16 05:01 Hx Obtained From: Patient, Medical Records Onset/Duration: Started Hours Ago, Atraumatic, Still Present Timing: Constant Chest Pain Location: Left Anterior Chest Pain Radiates: Yes Chest Pain Radiates To:: Jaw - left Character: Pressure/Squeezing Aggravating Factor(s): Nothing Alleviating Factor(s): Nothing Associated Signs and Symptoms: Positive: Chest Pain, Shortness of Breath. Negative: Fever, Cough, Productive Cough, Nonproductive Cough - Additional Pertinent History Primary Care Physician: [id number] - Allergy/Home Medications Allergies/Adverse Reactions: Allergies Allergy/AdvReac Type Severity Reaction Status Date / Time Metoprolol [From Lopressor] Allergy Intermediate Tachycardia Verified 10/16/16 20:43 Penicillins Allergy Intermediate Rash Verified 10/16/16 20:43 Cefazolin [From Ancef] Allergy Unknown Unknown Verified 10/16/16 20:43 Reaction Details Sulfa Drugs Allergy Unknown Unknown Verified 10/16/16 20:43 Reaction Details Propofol Allergy SCREAMING Verified 10/16/16 20:43 AND THRASHING Morphine AdvReac Intermediate Vomiting Verified 10/16/16 20:43 Naproxen AdvReac Intermediate upset Verified 10/16/16 20:43 stomach, vomiting Citalopram [From Celexa] AdvReac Mild Insomnia Verified 10/16/16 20:43 Tartrazine [From Sonata] AdvReac Mild Insomnia Verified 10/16/16 20:43 Zaleplon [From Sonata] AdvReac Mild Insomnia Verified 10/16/16 20:43 NSAIDs AdvReac Ulcers, GI Verified 10/16/16 20:43 upset PMH/Surg Hx/FS Hx/Imm Hx Endocrine/Hematology History: Reports: Hx Blood Transfusions, Hx Thyroid Disease Denies: Hx Anticoagulant Therapy, Hx Blood Disorders, Hx Bone Marrow Disease , Hx Diabetes, Hx Systemic Lupus Erythematosus, Hx Sickle Cell Disease, Hx Anemia, Hx Unexplained Bleeding Cardiovascular History: Reports: Hx Cardiomegaly - SINCE IN HER TEENS, Hx Congestive Heart Failure, Hx Deep Vein Thrombosis - right leg after surgery, Hx Hypercholesterolemia, Hx Hypertension - W/MEDS, Hx Pacemaker/ICD, Other Cardiovascular Problems/Disorders - BRADYCARDIA due to hypothyroidism; pacer not in use Denies: Hx Angina, Hx Coronary Artery Disease, Hx Myocardial Infarction, Hx Valvular Heart Disease Respiratory History: Reports: Other Respiratory Problems/Disorders - sob associated - inspiratory pain left ribs, abdominal distention per pt Denies: Hx Asthma, Hx Chronic Obstructive Pulmonary Disease (COPD) GI History: Reports: Hx Gastroesophageal Reflux Disease, Hx Irritable Bowel, Other GI Disorders - ABDOMEN DISTENDED Denies: Hx Cirrhosis, Hx Ulcer History: Denies: Hx Renal Disease Musculoskeletal History: Reports: Hx Back Problems - back surgery x 3, Hx Orthopedic Injury, Other Musculoskeletal History - knee, hip surgery hx Denies: Hx Bursitis, Hx Congenital Bone Abnormalities, Hx Fibromyalgia, Hx Gout, Hx Osteoporosis, Hx Scoliosis, Hx Tendonitis Sensory History: Reports: Hx Contacts or Glasses Denies: Hx Cataracts, Hx Eye Injury, Hx Eye Prosthesis, Hx Glaucoma, Hx Macular Degeneration, Hx Vision Problem, Hx Deafness, Hx Hearing Aid, Hx Hearing Problem, Other Sensory Impairments Opthamlomology History: Reports: Hx Contacts or Glasses Denies: Hx Cataracts, Hx Eye Injury, Hx Eye Prosthesis, Hx Glaucoma, Hx Macular Degeneration, Hx Vision Problem, Other Sensory Impairments Neurological History: Denies: Hx Dementia, Hx Developmental Delay, Hx Headaches, Hx Migraine, Hx Seizures, Hx Spinal Cord Injury, Hx Transient Ischemic Attacks (TIA), Other Neuro Impairments/Disorders - LOC WITH FALLL Psychiatric History: Reports: Hx Anxiety Denies: Hx Attention Deficit Hyperactivity Disorder, Hx Eating Disorder, Hx Depression, Hx Panic Disorder, Hx Post Traumatic Stress Disorder, Hx Inpatient Treatment, Hx Schizophrenia, Hx Bipolar Disorder, Hx Suicide Attempt, Hx Substance Abuse, Other Psychiatric Issues/Disorders - Cancer History Cancer Type, Location and Year: skin cancer on right leg, removed Hx Chemotherapy: No Hx Radiation Therapy: No - Surgical History Surgery Procedure, Year, and Place: left shoulder surgery Jul 08 2013 csections x 3. partial hysterectomy. 3 back surgeries. right hip REPLACEMENT. LEFT KNEE RECONSTRUCTION. PACEMAKER [id number]. 3 C- SECTIONS. RIGHT SHOULDER ROTATOR CUFF REPAIR - 15 YEARS AGO. UMBILICAL HERNIA REPAIR Hx Anesthesia Reactions: Yes - PROPOFOL REACTION- THRASHING AND SCREAMING Infectious Disease History: Reports: Hx Clostridium Difficile, Hx of Known/ Suspected MRSA Denies: Hx Hepatitis, Hx Human Immunodeficiency Virus (HIV), Hx Shingles, Hx Tuberculosis, Traveled Outside the [place] in Last 30 Days - Family History Known Family History: Positive: Cardiac Disease - CAD, Diabetes, Other - Breast CA - Social History Alcohol Use: None Hx Substance Use: No Substance Use Type: Reports: None, Prescribed Hx Tobacco Use: No Smoking Status (MU): Never Smoked Tobacco Review of Systems Negative: Fever Positive: Chest Pain Positive: Shortness Of Breath. Negative: Cough Positive: Abdominal Pain - abd distension All Other Systems Reviewed And Are Negative: Yes Physical Exam - Summary Physical Exam Summary: The patient is obese in moderate distress. HEENT: The head is normocephalic and atraumatic. The pupils are equal and reactive. The conjunctivae are clear and without drainage. Nares are patent and without drainage. Mouth reveals moist mucous membranes and the throat is without erythema and exudate. The external ears are intact. The ear canals are patent and without drainage. The tympanic membranes are intact. Neck is supple with full range of motion and non-tender. There are no carotid bruits. There is no neck vein distension. Respiratory: Chest is non-tender. Lungs are clear to auscultation and breath sounds are decreased. Cardiovascular: Heart is regular rate and rhythm. There is no murmur or rub auscultated. There is no peripheral edema and pulses are symmetrical and equal. Abdomen: The abdomen is soft, obese, and non-tender. There are normal bowel sounds heard in all four quadrants and there is no organomegaly palpated. Musculoskeletal: There is no back pain noted. Extremities are non-tender with full range of motion. There is good capillary refill. Bilat leg edema Neurological: Patient is alert and oriented to person, place and time. The patient has symmetrical motor strength in all four extremities. Cranial nerves are grossly intact. Deep tendon reflexes are symmetrical and equal in all four extremities. Psychiatric: The patient is anxious. Triage Information Reviewed: Yes Vital Signs On Initial Exam: Initial Vitals Pulse Resp Pulse Ox 78 19 95 12/31/16 05:05 12/31/16 05:05 12/31/16 05:05 Vital Signs Reviewed: Yes Diagnostics - Vital Signs Vital Signs Temp Pulse Resp BP Pulse Ox 12/31/16 06:30 68 9 150/68 98 12/31/16 06:29 14 12/31/16 06:28 14 12/31/16 06:00 70 9 135/63 94 12/31/16 05:44 18 12/31/16 05:30 75 13 153/61 94 12/31/16 05:12 97.4 F 78 18 164/78 95 12/31/16 05:05 78 19 95 - Laboratory Lab Results: Lab Results 12/31/16 12/31/16 12/31/16 Range/Units 05:37 05:37 05:37 WBC 8.4 (3.5-10.8) 10^3/ul RBC 3.79 L (4.0-5.4) 10^6/ul Hgb 11.5 L (12.0-16.0) g/dl Hct 35 (35-47) % MCV 93 (80-97) fL MCH 30 (27-31) pg MCHC 33 (31-36) g/dl RDW 17 H (10.5-15) % Plt Count 313 (150-450) 10^3/ul MPV 8 (7.4-10.4) um3 Neut % (Auto) 67.7 (38-83) % Lymph % (Auto) 25.3 (25-47) % [place] % (Auto) 6.3 (1-9) % Eos % (Auto) 0.5 (0-6) % Baso % (Auto) 0.2 (0-2) % Absolute Neuts (auto) 5.7 (1.5-7.7) 10^3/ul Absolute Lymphs (auto) 2.1 (1.0-4.8) 10^3/ul Absolute Monos (auto) 0.5 (0-0.8) 10^3/ul Absolute Eos (auto) 0 (0-0.6) 10^3/ul Absolute Basos (auto) 0 (0-0.2) 10^3/ul Absolute Nucleated RBC 0.01 10^3/ul Nucleated RBC % 0.1 Sodium 133 (133-145) mmol/L Potassium 4.3 (3.5-5.0) mmol/L Chloride 93 L (101-111) mmol/L Carbon Dioxide 33 H (22-32) mmol/L Anion Gap 7 (2-11) mmol/L BUN 14 (6-24) mg/dL Creatinine 0.67 (0.51-0.95) mg/dL Est GFR ( Amer) 114.3 (>60) Est GFR (Non-Af Amer) 88.9 (>60) BUN/Creatinine Ratio 20.9 H (8-20) Glucose 193 H (70-100) mg/dL Lactic Acid 1.9 (0.5-2.0) mmol/L Calcium 9.3 (8.6-10.3) mg/dL Total Bilirubin 0.50 (0.2-1.0) mg/dL AST 44 H (13-39) U/L ALT 35 (7-52) U/L Alkaline Phosphatase 113 H (34-104) U/L Troponin I 0.03 (<0.04) ng/mL B-Natriuretic Peptide ( - 100) pg/mL Total Protein 7.4 (6.4-8.9) g/dL Albumin 3.9 (3.2-5.2) g/dL Globulin 3.5 (2-4) g/dL Albumin/Globulin Ratio 1.1 (1-3) 12/31/16 Range/Units 05:37 WBC (3.5-10.8) 10^3/ul RBC (4.0-5.4) 10^6/ul Hgb (12.0-16.0) g/dl Hct (35-47) % MCV (80-97) fL MCH (27-31) pg MCHC (31-36) g/dl RDW (10.5-15) % Plt Count (150-450) 10^3/ul MPV (7.4-10.4) um3 Neut % (Auto) (38-83) % Lymph % (Auto) (25-47) % [place] % (Auto) (1-9) % Eos % (Auto) (0-6) % Baso % (Auto) (0-2) % Absolute Neuts (auto) (1.5-7.7) 10^3/ul Absolute Lymphs (auto) (1.0-4.8) 10^3/ul Absolute Monos (auto) (0-0.8) 10^3/ul Absolute Eos (auto) (0-0.6) 10^3/ul Absolute Basos (auto) (0-0.2) 10^3/ul Absolute Nucleated RBC 10^3/ul Nucleated RBC % Sodium (133-145) mmol/L Potassium (3.5-5.0) mmol/L Chloride (101-111) mmol/L Carbon Dioxide (22-32) mmol/L Anion Gap (2-11) mmol/L BUN (6-24) mg/dL Creatinine (0.51-0.95) mg/dL Est GFR ( Amer) (>60) Est GFR (Non-Af Amer) (>60) BUN/Creatinine Ratio (8-20) Glucose (70-100) mg/dL Lactic Acid (0.5-2.0) mmol/L Calcium (8.6-10.3) mg/dL Total Bilirubin (0.2-1.0) mg/dL AST (13-39) U/L ALT (7-52) U/L Alkaline Phosphatase (34-104) U/L Troponin I (<0.04) ng/mL B-Natriuretic Peptide 63 ( - 100) pg/mL Total Protein (6.4-8.9) g/dL Albumin (3.2-5.2) g/dL Globulin (2-4) g/dL Albumin/Globulin Ratio (1-3) Result Diagrams: 12/31/16 05:37 12/31/16 05:37 Lab Statement: Any lab studies that have been ordered have been reviewed, and results considered in the medical decision making process. - Radiology CXR Radiology Interpretation Completed By: ED Physician - See EMR for official reading - EKG 0520 Cardiac Rate: NL - 76 bpm EKG Rhythm: Sinus Rhythm EKG Interpretation: T wave inversion at I, aVL, V5, and V6. Left axis. EKG Comparison: No Significant Change - 10.16.2016 Chest Pain Course/Dx - Course Assessment/Plan: This 61 y/o female presents to ED for chest pain since yesterday evening. Pt states that she had trouble sleeping due to pain. EKG is unchaged from her last EKG in September 2016. Blood work is noted with mild anemia and chronic elevated of some liver enzymes. Hospitalist concrete form setter, Dr. Miles, is consulted, and she is agreeable to pt's admission. CXR and interpretted by myself reveals cardiomegaly and no infiltrate. - Chest Pain Differential Diagnosis/HQI/PQRI: Acute MS, ACS, Pulmonary Edema - Diagnoses Provider Diagnoses: Chest pain - Provider Notifications Discussed Care Of Patient With: Annette Miles Time Discussed With Above Provider: 06:21 Discharge - Discharge Plan Condition: Stable Disposition: ADMITTED TO [facility] Referrals: Olga Cavanaugh MD [Primary Care Provider] - The documentation as recorded by the Milad espino Soohyun accurately reflects the service I personally performed and the decisions made by me, Kevin Henley MD.
--- NOTE | 2016-12-31 07:55 | RAD ---
HISTORY: Chest pain, shortness of breath COMPARISONS: October 05, 2016 VIEWS:1: Single frontal portable view of the chest at 5:50 AM FINDINGS: LINES AND TUBES: A left-sided pacemaker is noted CARDIOMEDIASTINAL SILHOUETTE: The cardiomediastinal silhouette is stable. PLEURA: The costophrenic angles are sharp. No pleural abnormalities are noted. LUNG PARENCHYMA: The lung volumes are low. The lungs are clear. ABDOMEN: The upper abdomen is clear. There is no subphrenic gas. BONES AND SOFT TISSUES: The patient is status post spinal fusion. There is postsurgical change to the right shoulder. Degenerative changes are noted of the left shoulder IMPRESSION: LOW LUNG VOLUMES. NO ACTIVE CARDIOPULMONARY DISEASE.
[2016-12-31 09:09] VITALS: BP 148/84
--- NOTE | 2016-12-31 14:12 | CONS ---
CC: Dr. Cavanaugh; Dr. Hdez * CONSULTATION REPORT: DATE OF CONSULT: 12/31/16 SERVICE REQUESTING CONSULTATION: Emergency Department. PROVIDER REQUESTING CONSULTATION: Dr. Kevin Henley. REASON FOR CONSULTATION: Chest pain. SOURCE OF INFORMATION: History obtained from interview with patient, review of past medical records. RELIABILITY: Good. PRIMARY CARE PHYSICIAN: Dr. Cavanaugh. CERAMIC PRODUCTS SALES ENGINEER: Dr. Hdez. HEALTHCARE PROXY: Sister. CODE STATUS: Full. HISTORY OF PRESENT ILLNESS: This is a 61-year-old female with past medical history of obesity, type 2 diabetes, hypertension, hyperlipidemia, who had been in her usual state of health until yesterday around 3 p.m., felt "edema" in her feet increasing to her knees over the course of today associated with "burning" and blisters in her lower extremity, although on exam she was noted to have excoriated rash that started to partly heal and consistent with a new blister starting yesterday. Overnight she developed chest pain around 4 a.m., describes as a pressure in her chest radiating to her left shoulder associated with nausea. En route, she received nitroglycerin as well as morphine in the emergency room and when seen by this author, she described no chest pain, completely resolved. She denies any recent changes in her medication or changes in her diet. Denies any salt in her foot. At her most active, she walks with her elderly mother, however, notes that she has left knee surgery in June of this year, which has limited her ability to ambulate. She had similar episode of chest pain in September 2016 for which she reports this feels very similar. Other pertinent past medical history includes a chemical stress test in September, which showed inferior wall defect that reversed with attenuation correction. She had no abnormal wall abnormality and TID of 1.29. Please [address] Dr[address] Alex's consultation on 10/05/16 for further details surrounding her admission at that time for chest pain. Of further note, she did have a cardiac catheterization in 2010 in [facility], which was normal as well as cardiac catheterization at [facility] in October 2015, which was also reportedly normal. Other than the above, she denies any recent colds, runny nose, sore throat, shortness of breath, orthopnea, PND, headaches, decreased energy, fatigue, fevers, chills, night sweats, diarrhea, abdominal pain, constipation, although she does suffer from IBS, which she manages with consistent diet and medications. PAST MEDICAL HISTORY: Type 2 diabetes, obesity, hypertension, bradycardia, status post permanent pacemaker, hyperlipidemia, hypothyroidism, IBS, chronic pain, anxiety, pericarditis, DVT postop, knee replacement in 2007 as well as 2017. HOME MEDICATIONS: Include: 1. Metformin. 2. Percocet. 3. Zolpidem. 4. Simvastatin. 5. Lorazepam. 6. Multivitamins. 7. Levothyroxine. 8. Lasix 40 mg daily. 9. Irbesartan. 10. Vitamin D3. 11. Aspirin 81 mg. 12. MiraLAX. ALLERGIES: To METOPROLOL, PENICILLIN, CEFAZOLIN, SULFA DRUGS, PROPOFOL, MORPHINE, NAPROXEN, CITALOPRAM, SONATA, TARTRAZINE, ZALEPLON, NSAIDs. FAMILY HISTORY: Denies family history of CAD. SOCIAL HISTORY: Lives alone. Denies tobacco and alcohol. REVIEW OF SYSTEMS: As per HPI, otherwise all other systems negative. PHYSICAL EXAM: Vitals in the emergency room 150/68, heart rate 60, respiratory rate is 12, T-max in the emergency room 97.4, O2 saturation when she seen by this author was 98% on 4 L. Obese female, sitting up in bed, interactive, pleasant, in no apparent distress. Oropharynx is clear. She has moist mucous membranes. Sclerae are anicteric. She has no elevated JVD. No cervical or supraclavicular lymphadenopathy. No goiter or thyroid nodules. She has regular rate and rhythm. No murmurs, rubs, or gallops. Her lungs are clear to auscultation. Decreased in the bases. Abdomen is soft, nontender, nondistended. Extremities are warm and well perfused. She has 1+ lower extremity edema from her ankles about 6 inches below her knees. Extremities are warm and well perfused. Her skin shows patchy erythematous vesicles with evidence of excoriation and scabbing. She is alert and oriented x3. Her cranial nerves are intact. She has no apparent anxiety, agitation, or depression. DIAGNOSTIC STUDIES/LAB DATA: Labs reviewed notable for hemoglobin 11.5, hematocrit 35, MCV of 93, glucose 193, lactic acid 1.9. Troponin I 0.03. Data reviewed: EKG notable for normal sinus rhythm, normal axis, evidence of LVH. She has less than [address] elevations V3 and V4. She has biphasic T waves in V2 and V3, and T-wave inversions in V4 through V6 as well as lead I and aVL unchanged from past. No pathologic Q waves, QT interval 540. Chest x-ray, no active cardiopulmonary disease, difficult to repeat the exam given obesity. ASSESSMENT AND PLAN: Chest pain: Patient re-presenting with chest pain that has been worked up with stress test twice this year as well as cardiac catheterization last year. At this point, I think this is a manifestation of her chronic chest pain as nonischemic. I did not think she warrants admission for further evaluation at this time, especially in the setting of pain relief and normal troponin. I have encouraged her to follow up with her behavioral interventionist as well as her PCP for further management. Prolonged QTc, avoid QTc prolonging drugs. Lower extremity edema: I discussed lower extremity compression stockings as well as lower extremity elevation at length, which she feels capable of achieving. Anemia, is chronic. No management at this time. Disposition: Discharge to home, discussed with Dr. Bourne in the emergency room. Return to ED instructions discussed at length with patient including return or worsening of chest pain, shortness of breath, nausea, vomiting, lightheadedness, loss of consciousness, or near loss of consciousness or other worrisome symptoms. The patient acknowledged understanding. [id number]/[facility] #: [id number] MTDD
== END 2016-12-31 09:07 | disposition home or self-care (01) ==
LOC: ED 04:53
DX: R07.89 Other chest pain (principal); R06.02 Shortness of breath; R60.0 Localized edema; E07.9 Disorder of thyroid, unspecified; I50.9 Heart failure, unspecified; E78.00 Pure hypercholesterolemia, unspecified; I10 Essential (primary) hypertension; Z95.0 Presence of cardiac pacemaker; Z86.718 Personal history of other venous thrombosis and embolism; E66.9 Obesity, unspecified; F41.9 Anxiety disorder, unspecified; Z88.1 Allergy status to other antibiotic agents; Z88.5 Allergy status to narcotic agent; Z88.6 Allergy status to analgesic agent; Z88.0 Allergy status to penicillin; Z88.2 Allergy status to sulfonamides
CPT/HCPCS: 36415; 71010; 80053; 83605; 83880; 84484; 85025; 93005; 96361; 96374; 96375; 96376; 99284; J2060; J2270

== ENCOUNTER 2017-01-01 02:42 | Emergency (ER) | payer MEDICARE, MEDICAID ==
[2017-01-01] MEDS ORDERED: Aspirin Low Dose CHEW TAB* 81 MG PO ONE (02:46)
[2017-01-01 03:03] VITALS: BP 135/71
[2017-01-01 03:29] LABS: Hematocrit 38 % (35-47); Hemoglobin 12.4 g/dl (12.0-16.0); Mean Corpuscular HGB Conc 33 g/dl (31-36); Mean Corpuscular Hemoglobin 30 pg (27-31); Mean Corpuscular Volume 92 fL (80-97); Mean Platelet Volume 9 um3 (7.4-10.4); Red Blood Count 4.12 10^6/ul (4.0-5.4); Red Cell Distribution Width 17 % (10.5-15); White Blood Count 7.7 10^3/ul (3.5-10.8)
[2017-01-01 03:39] LABS: BUN/Creatinine Ratio 17.7 (8-20); Calcium 9.2 mg/dL (8.6-10.3); EGFR Non-African American 97.2 (>60); Globulin 3.8 g/dL (2-4); Potassium 3.6 mmol/L (3.5-5.0); Total Bilirubin 0.5 mg/dL (0.2-1.0); Total Protein 7.8 g/dL (6.4-8.9)
[2017-01-01 03:41] LABS: Troponin I 0.03 ng/mL (<0.04)
[2017-01-01] MEDS ORDERED: Acetaminophen TAB* 325 MG PO ONE (04:07)
--- NOTE | 2017-01-01 08:04 | RAD ---
HISTORY: Fall, right hip pain COMPARISONS: October 27, 2014 VIEWS: 4, Frontal view of the pelvis with frontal and frog-leg views of the right hip FINDINGS: BONE DENSITY: Normal. BONES: The patient is status post right hip arthroplasty. There is no hardware failure or osteolysis. The patient is status post lumbosacral fusion. JOINTS: The patient is status post right hip arthroplasty ALIGNMENT: There is no dislocation. SOFT TISSUES: Unremarkable. OTHER FINDINGS: None. IMPRESSION: STATUS POST RIGHT HIP ARTHROPLASTY. NO ACUTE OSSEOUS INJURY. IF SYMPTOMS PERSIST, RECOMMEND REPEAT IMAGING
--- NOTE | 2017-01-07 06:19 | ED ---
Veronica Perez SooYoung, scribed for Calvin Lopez MD on 01/01/17 at 0258 . HPI Chest Pain - HPI Summary HPI Summary: A 61 y/o F GABBIE presents to ED after a fall at approx 0200 c/o acute on chronic R hip pain and CP. Pt describes CP as heaviness. Pt was last seen in ED yesterday morning for CP and was evaluated by the hospitalist and D/C home. Pt uses a cane and walker to ambulate. Pt is unsure why she fell. - History of Current Complaint Chief Complaint: EDChestPainROMI Time Seen by Provider: 01/01/17 02:45 Hx Obtained From: Patient Onset/Duration: Started Hours Ago, Still Present Timing: Constant Current Severity: Moderate Pain Intensity: 6 Pain Scale Used: 0-10 Numeric Character: Heaviness Associated Signs and Symptoms: Positive: Other: - pos: R hip pain - Additional Pertinent History Primary Care Physician: AUTL - Allergy/Home Medications Allergies/Adverse Reactions: Allergies Allergy/AdvReac Type Severity Reaction Status Date / Time Metoprolol [From Lopressor] Allergy Intermediate Tachycardia Verified 10/16/16 20:43 Penicillins Allergy Intermediate Rash Verified 10/16/16 20:43 Cefazolin [From Ancef] Allergy Unknown Unknown Verified 10/16/16 20:43 Reaction Details Sulfa Drugs Allergy Unknown Unknown Verified 10/16/16 20:43 Reaction Details Propofol Allergy SCREAMING Verified 10/16/16 20:43 AND THRASHING Morphine AdvReac Intermediate Vomiting Verified 10/16/16 20:43 Naproxen AdvReac Intermediate upset Verified 10/16/16 20:43 stomach, vomiting Citalopram [From Celexa] AdvReac Mild Insomnia Verified 10/16/16 20:43 Tartrazine [From Sonata] AdvReac Mild Insomnia Verified 10/16/16 20:43 Zaleplon [From Sonata] AdvReac Mild Insomnia Verified 10/16/16 20:43 NSAIDs AdvReac Ulcers, GI Verified 10/16/16 20:43 upset PMH/Surg Hx/FS Hx/Imm Hx Previously Healthy: No Endocrine/Hematology History: Reports: Hx Blood Transfusions, Hx Thyroid Disease Denies: Hx Anticoagulant Therapy, Hx Blood Disorders, Hx Bone Marrow Disease , Hx Diabetes, Hx Systemic Lupus Erythematosus, Hx Sickle Cell Disease, Hx Anemia, Hx Unexplained Bleeding Cardiovascular History: Reports: Hx Cardiomegaly - SINCE IN HER TEENS, Hx Congestive Heart Failure, Hx Deep Vein Thrombosis - right leg after surgery, Hx Hypercholesterolemia, Hx Hypertension - W/MEDS, Hx Pacemaker/ICD, Other Cardiovascular Problems/Disorders - BRADYCARDIA due to hypothyroidism; pacer not in use Denies: Hx Angina, Hx Coronary Artery Disease, Hx Myocardial Infarction, Hx Valvular Heart Disease Respiratory History: Reports: Other Respiratory Problems/Disorders - sob associated - inspiratory pain left ribs, abdominal distention per pt Denies: Hx Asthma, Hx Chronic Obstructive Pulmonary Disease (COPD) GI History: Reports: Hx Gastroesophageal Reflux Disease, Hx Irritable Bowel, Other GI Disorders - ABDOMEN DISTENDED Denies: Hx Cirrhosis, Hx Ulcer History: Denies: Hx Renal Disease Musculoskeletal History: Reports: Hx Back Problems - back surgery x 3, Hx Orthopedic Injury, Other Musculoskeletal History - knee, hip surgery hx Denies: Hx Bursitis, Hx Congenital Bone Abnormalities, Hx Fibromyalgia, Hx Gout, Hx Osteoporosis, Hx Scoliosis, Hx Tendonitis Sensory History: Reports: Hx Contacts or Glasses Denies: Hx Cataracts, Hx Eye Injury, Hx Eye Prosthesis, Hx Glaucoma, Hx Macular Degeneration, Hx Vision Problem, Hx Deafness, Hx Hearing Aid, Hx Hearing Problem, Other Sensory Impairments Opthamlomology History: Reports: Hx Contacts or Glasses Denies: Hx Cataracts, Hx Eye Injury, Hx Eye Prosthesis, Hx Glaucoma, Hx Macular Degeneration, Hx Vision Problem, Other Sensory Impairments Neurological History: Denies: Hx Dementia, Hx Developmental Delay, Hx Headaches, Hx Migraine, Hx Seizures, Hx Spinal Cord Injury, Hx Transient Ischemic Attacks (TIA), Other Neuro Impairments/Disorders - LOC WITH FALLL Psychiatric History: Reports: Hx Anxiety Denies: Hx Attention Deficit Hyperactivity Disorder, Hx Eating Disorder, Hx Depression, Hx Panic Disorder, Hx Post Traumatic Stress Disorder, Hx Inpatient Treatment, Hx Schizophrenia, Hx Bipolar Disorder, Hx Suicide Attempt, Hx Substance Abuse, Other Psychiatric Issues/Disorders - Cancer History Cancer Type, Location and Year: skin cancer on right leg, removed Hx Chemotherapy: No Hx Radiation Therapy: No - Surgical History Surgery Procedure, Year, and Place: left shoulder surgery Jul 08 2013 csections x 3. partial hysterectomy. 3 back surgeries. right hip REPLACEMENT. LEFT KNEE RECONSTRUCTION. PACEMAKER [id number]. 3 C- SECTIONS. RIGHT SHOULDER ROTATOR CUFF REPAIR - 15 YEARS AGO. UMBILICAL HERNIA REPAIR Hx Anesthesia Reactions: Yes - PROPOFOL REACTION- THRASHING AND SCREAMING Infectious Disease History: Reports: Hx Clostridium Difficile, Hx of Known/ Suspected MRSA Denies: Hx Hepatitis, Hx Human Immunodeficiency Virus (HIV), Hx Shingles, Hx Tuberculosis - Family History Known Family History: Positive: Cardiac Disease - CAD, Diabetes, Other - Breast CA - Social History Occupation: Disabled Lives: Alone Alcohol Use: None Hx Substance Use: No Substance Use Type: Reports: None, Prescribed Hx Tobacco Use: No Smoking Status (MU): Never Smoked Tobacco Review of Systems Negative: Fever Positive: Chest Pain Positive: Other - R hip pain All Other Systems Reviewed And Are Negative: Yes Physical Exam Triage Information Reviewed: Yes Vital Signs On Initial Exam: Initial Vitals Temp Pulse Resp BP Pulse Ox 97.4 F 66 14 135/71 93 01/01/17 02:56 01/01/17 02:56 01/01/17 02:56 01/01/17 02:56 01/01/17 02:56 Vital Signs Reviewed: Yes Appearance: Positive: Well-Appearing, Pain Distress - miold discomfort Skin: Positive: Warm Head/Face: Positive: Normal Head/Face Inspection Eyes: Positive: EOMI, LOLI ENT: Positive: Hearing grossly normal Neck: Positive: Supple Respiratory/Lung Sounds: Positive: Clear to Auscultation, Breath Sounds Present Cardiovascular: Positive: RRR Abdomen Description: Positive: Nontender, Soft Bowel Sounds: Positive: Present Musculoskeletal: Positive: Strength/ROM Intact - chronic rt hgip pain with movement Neurological: Positive: Alert, Oriented to Person Place, Time Psychiatric: Positive: Affect/Mood Appropriate Diagnostics - Vital Signs Vital Signs Temp Pulse Resp BP Pulse Ox 01/01/17 02:56 97.4 F 66 14 135/71 93 - Laboratory Lab Results: Lab Results 01/01/17 01/01/17 01/01/17 Range/Units 03:00 03:00 03:00 WBC 7.7 (3.5-10.8) 10^3/ul RBC 4.12 (4.0-5.4) 10^6/ul Hgb 12.4 (12.0-16.0) g/dl Hct 38 (35-47) % MCV 92 (80-97) fL MCH 30 (27-31) pg MCHC 33 (31-36) g/dl RDW 17 H (10.5-15) % Plt Count 341 (150-450) 10^3/ul MPV 9 (7.4-10.4) um3 Neut % (Auto) 70.2 (38-83) % Lymph % (Auto) 22.7 L (25-47) % Dillon % (Auto) 6.8 (1-9) % Eos % (Auto) 0.1 (0-6) % Baso % (Auto) 0.2 (0-2) % Absolute Neuts (auto) 5.4 (1.5-7.7) 10^3/ul Absolute Lymphs (auto) 1.8 (1.0-4.8) 10^3/ul Absolute Monos (auto) 0.5 (0-0.8) 10^3/ul Absolute Eos (auto) 0 (0-0.6) 10^3/ul Absolute Basos (auto) 0 (0-0.2) 10^3/ul Absolute Nucleated RBC 0 10^3/ul Nucleated RBC % 0 Sodium 133 (133-145) mmol/L Potassium 3.6 (3.5-5.0) mmol/L Chloride 92 L (101-111) mmol/L Carbon Dioxide 34 H (22-32) mmol/L Anion Gap 7 (2-11) mmol/L BUN 11 (6-24) mg/dL Creatinine 0.62 (0.51-0.95) mg/dL Est GFR ( Amer) 125.0 (>60) Est GFR (Non-Af Amer) 97.2 (>60) BUN/Creatinine Ratio 17.7 (8-20) Glucose 219 H (70-100) mg/dL Lactic Acid 1.5 (0.5-2.0) mmol/L Calcium 9.2 (8.6-10.3) mg/dL Total Bilirubin 0.50 (0.2-1.0) mg/dL AST 76 H (13-39) U/L ALT 43 (7-52) U/L Alkaline Phosphatase 120 H (34-104) U/L Troponin I 0.03 (<0.04) ng/mL Total Protein 7.8 (6.4-8.9) g/dL Albumin 4.0 (3.2-5.2) g/dL Globulin 3.8 (2-4) g/dL Albumin/Globulin Ratio 1.1 (1-3) Result Diagrams: 01/01/17 03:00 01/01/17 03:00 Lab Statement: Any lab studies that have been ordered have been reviewed, and results considered in the medical decision making process. - Radiology HIP XR Xray Interpretation: No Acute Changes Radiology Interpretation Completed By: ED Physician - EKG 0313 Cardiac Rate: NL EKG Interpretation: T-wave inversion EKG Comparison: No Significant Change - from prior EKG Re-Evaluation - Re-Evaluation First Eval Comment: pt does not want to wait for second troponin, explained risks of leaving [facility] including loss of life, pt understands and accepts risk Chest Pain Course/Dx - Course Course Of Treatment: Pt is a 61 y/o F BIBA presenting after a fall at approx 0200 c/o acute on chronic R hip pain and CP. Pt describes CP as heaviness. Pt was last seen in ED yesterday morning for CP and was evaluated by the hospitalist and D/C home. Pt uses a cane and walker to ambulate. Pt is unsure why she fell. Pt given Tylenol and Aspirin in ED. Blood work results are without significant abnormalities except elevated glucose. Trop is 0.03. Hip XR is nml. EKG is NSR with T-wave inversion, unchanged from previous EKG. Pt leaving prior to 2nd trop, leaving [facility]. - Diagnoses Provider Diagnoses: ACS (acute coronary syndrome) Discharge - Discharge Plan Condition: Fair Disposition: AGAINST MEDICAL ADVICE Referrals: Olga Cavanaugh MD [Primary Care Provider] - The documentation as recorded by the Veronica espino SooYoung accurately reflects the service I personally performed and the decisions made by me, Calvin Lopez MD.
== END 2017-01-01 04:34 | disposition left against medical advice (07) ==
LOC: ED 02:42
DX: I24.9 Acute ischemic heart disease, unspecified (principal); M25.551 Pain in right hip; Z53.21 Procedure and treatment not carried out due to patient leaving prior to being seen by health care provider
CPT/HCPCS: 36415; 80053; 83605; 84484; 85025; 93005; 99283; A9270-GY

== ENCOUNTER 2017-02-11 17:24 | Inpatient (IN) | payer MEDICARE, MEDICAID ==
--- NOTE | 2017-02-11 18:35 | RAD ---
HISTORY: Syncope COMPARISONS: October 16, 2016 TECHNIQUE: Multiple contiguous axial CT scans were obtained of the head without intravenous contrast. FINDINGS: HEMORRHAGE/INFARCT: There is no hemorrhage or acute infarct. MASSES/SHIFT: There is no mass or shift. EXTRA-AXIAL SPACES: There are no extra-axial fluid collections. SULCI AND VENTRICLES: The sulci and ventricles are normal in size and position for the patient's stated age. CEREBRUM: There are no focal parenchymal abnormalities. BRAINSTEM: There are no focal parenchymal abnormalities. CEREBELLUM: There are no focal parenchymal abnormalities. VESSELS: The vessels are grossly normal. PARANASAL SINUSES: There is opacification of the left seen with sinus and the posterior ethmoid air cells on the left. ORBITS: The orbits are unremarkable. BONES AND SOFT TISSUE: No bone or soft tissue abnormalities are noted. OTHER: None IMPRESSION: NO ACUTE INTRACRANIAL PATHOLOGY. MODERATE SINUS MUCOSAL INFLAMMATORY DISEASE, WITHOUT AIR-FLUID LEVEL TO SUGGEST ACUTE SINUSITIS.
--- NOTE | 2017-02-11 18:37 | RAD ---
HISTORY: Syncope, neck pain COMPARISONS: March 12, 2012 TECHNIQUE: Multiple contiguous axial CT scans were obtained of the cervical spine without intravenous contrast, with coronal and sagittal multiplanar reformations. FINDINGS: BRAIN: The visualized brain is unremarkable CENTRAL CANAL: Evaluation of the central canal is limited on CT technique, however there is no obvious canalicular mass or epidural hemorrhage. ALIGNMENT: There is straightening of the normal cervical lordosis. VERTEBRAL BODIES: There is multilevel anterolateral marginal osteophyte reformation. There is no displaced fracture. JOINTS: There is diffuse intervertebral and facet hypertrophy. There is no subluxation MUSCULATURE: Unremarkable INTERVERTEBRAL DISCS: There is diffuse loss of intervertebral disc height. AXIAL IMAGES: There is multilevel degenerative disc disease and osteoarthritis. There is no osseous central canal stenosis. There is moderate diffuse bilateral neural foraminal narrowing.. SOFT TISSUES: The visualized soft tissues of the neck are unremarkable. The prevertebral fat stripe is preserved. OTHER: None. IMPRESSION: DEGENERATIVE DISC DISEASE AND OSTEOARTHRITIS. NO ACUTE OSSEOUS INJURY TO THE CERVICAL SPINE
[2017-02-11 19:00] LABS: Hematocrit 35 % (35-47); Hemoglobin 11.7 g/dl (12.0-16.0); Mean Corpuscular HGB Conc 33 g/dl (31-36); Mean Corpuscular Hemoglobin 30 pg (27-31); Mean Corpuscular Volume 90 fL (80-97); Mean Platelet Volume 8 um3 (7.4-10.4); Red Blood Count 3.91 10^6/ul (4.0-5.4); Red Cell Distribution Width 16 % (10.5-15); White Blood Count 7.7 10^3/ul (3.5-10.8)
[2017-02-11 19:18] LABS: Albumin 3.7 g/dL (3.2-5.2); BUN/Creatinine Ratio 17.6 (8-20); EGFR Non-African American 87.1 (>60); Globulin 3.6 g/dL (2-4); Magnesium 1.6 mg/dL (1.9-2.7); Potassium 3.6 mmol/L (3.5-5.0); Total Bilirubin 0.7 mg/dL (0.2-1.0); Total Protein 7.3 g/dL (6.4-8.9)
[2017-02-11 19:25] LABS: Troponin I 0.04 ng/mL (<0.04)
--- NOTE | 2017-02-11 19:36 | RAD ---
HISTORY: Syncope, pain COMPARISONS: April 06, 2012 VIEWS: 5 , Frontal, lateral, coned-down lateral sacral, and bilateral oblique views of the lumbar spine. FINDINGS: ALIGNMENT: The alignment is normal. VERTEBRAL BODIES: There is diffuse osteopenia. The patient is status post spinal fusion with multiple pedicle screws, laminar hooks, and rods. There is no appreciable displaced fracture or new hardware failure or osteolysis. JOINTS: There is bone graft material along the facet joints bilaterally with fusion across the facet joints. INTERVERTEBRAL DISCS: There is diffuse loss of intervertebral disc height. SOFT TISSUE: Unremarkable. OTHER: The patient is status post right hip arthroplasty. IMPRESSION: OSTEOPENIA. STATUS POST SPINAL FUSION.
--- NOTE | 2017-02-11 19:38 | RAD ---
HISTORY: Syncope, left elbow pain COMPARISONS: October 19, 2007 VIEWS: 3, Frontal, lateral, and oblique views of the left elbow FINDINGS: BONE DENSITY: There is diffuse osteopenia. BONES: There is no displaced fracture. JOINTS: There is osteoarthritis of the radial-capitellar and ulnar trochlear articulations. ALIGNMENT: There is no dislocation. SOFT TISSUES: Unremarkable. OTHER FINDINGS: None. IMPRESSION: OSTEOPENIA. OSTEOARTHRITIS. NO ACUTE OSSEOUS INJURY. IF SYMPTOMS PERSIST, RECOMMEND REPEAT IMAGING
[2017-02-11 19:46] LABS: TSH (Thyroid Stimulating Horm) 0.91 mcIU/mL (0.34-5.60)
[2017-02-11] MEDS ORDERED: NS 0.9% 1000 ML* 1,000 ML IV ONE (19:50)
[2017-02-11] MEDS ORDERED: oxyCODONE/Acetamin 5/325 MG* TAB PO ONE (21:07)
[2017-02-11] MEDS ORDERED: Iohexol 350* (CONTRAST) 500 ML MDV IV ONE (21:12)
[2017-02-11] MEDS ORDERED: Dextrose 50% Syringe 50 ML* 25 GM/50 ML SYRINGE IV PUSH PRN (21:16)
[2017-02-11] MEDS ORDERED: oxyCODONE/Acetamin 5/325 MG* TAB PO SCH (22:00)
[2017-02-11] MEDS ORDERED: Magnesium Sulfate 2 GM IV* 2 GM/50 ML BAG IVPB ONE (22:05)
[2017-02-11] MEDS: NS 0.9% 1000 ML* 1,000 ML IV SCH (23:32)
[2017-02-11] MEDS: Heparin VIAL(*) 5000 UNITS/ML VIAL (FIVE THOUSAND) SUBCUT SCH (23:32)
--- NOTE | 2017-02-12 00:15 | HP ---
CC: Dr. Cavanaugh; Dr. Hdez * HISTORY AND PHYSICAL: DATE OF ADMISSION: 02/11/17 PRIMARY CARE PHYSICIAN: Dr. Cavanaugh. OFFICE MACHINE REPAIR SHOP SUPERVISOR: Dr. Hdez. CHIEF COMPLAINT: Syncope/fall. HISTORY OF PRESENT ILLNESS: Miriam Barragan is a 62-year-old female with a history of nonobstructive coronary artery disease, status post pacemaker placement in 2011 who was just discharged from [facility] a week prior to home after a prolonged hospitalization at [facility] and then rehabilitation at [facility] for knee contusion after a fall who came into the hospital after a syncopal episode. The patient stated that she had been "busy around the house" and has not been eating or drinking well. She stated that she walks approximately 20 feet from the dining room table to the sink. She stood in front of the sink and poured herself a glass of water and at that point, she saw black and "stars" in her eyes. She tried to hold on to things, but she found herself falling backwards. She stated that she hit the floor with her back. She also commented that she "fell flat on her back." She stated that after hitting the floor, she must have lost consciousness because she woke up approximately an hour or so later. She crawled to the phone and called for ambulance. The patient stated that at baseline, she ambulates with a roller walker. She does not own a wheelchair. As mentioned above, she was just discharged from [facility] a week ago. She states that she cooks her own meals and she does not really have any help at home. Her mother is currently being hospitalized at our facility. The patient is going to be admitted with a diagnosis of syncope. She also appears to have rhabdomyolysis. PAST MEDICAL HISTORY: 1. History of nonobstructive coronary artery disease. Please note that the patient had 2 recent stress tests. The most recent one was in September 2016, which showed an indeterminate risk with moderate to large area of ischemia in the anterior wall. Please note that stress test was very similar to the stress test obtained in 2016. After the stress test that was abnormal in 2016 also at [facility], the patient had a cardiac catheterization, which showed no significant coronary artery disease and EF of 55% to 60%. The patient has a history of being frequently evaluated in the emergency room for chest pains. 2. History of chronic pain. 3. History of anxiety, on chronic benzodiazepines use. 4. History of diabetes type 2. 5. History of DVT after a back surgery. 6. Obesity. 7. Dyslipidemia. 8. Hypothyroidism. 9. Hypertension. 10. History of pericarditis in the past. 11. Irritable bowel disease. 12. History of left knee replacement in May 2016 at [facility] in [place]. 13. The patient is being currently evaluated for redo of her lower back surgery at a hospital in [place]. MEDICATIONS: The patient's current medications include: 1. Percocet 1 tablet every 4 hours p.r.n. 2. MiraLAX 17 g daily. 3. Multivitamin 1 tablet daily. 4. Lasix 40 mg daily. 5. Lorazepam 0.5 mg up to 4 times a day for anxiety. 6. Irbesartan 150 mg daily. 7. Vitamin D3 2000 units daily. 8. Aspirin 81 mg daily. 9. Metformin 1000 mg b.i.d. 10. Levothyroxine 75 mcg daily. 11. Ambien 10 mg at bedtime p.r.n. 12. Simvastatin 40 mg at bedtime. ALLERGIES: Multiple and includes METOPROLOL causes tachycardia, PENICILLIN causes rash, PROPOFOL causes "screaming and thrashing," MORPHINE and NAPROXEN cause upset stomach. Please note that the patient has no problems when she uses oxycodone on hydrocodone. CELEXA and SONATA cause insomnia. NONSTEROIDAL ANTI-INFLAMMATORY MEDICATIONS cause GI upset and ulcers. FAMILY HISTORY: Positive for father with history of NV at the age of 49 and in his 60s. Brother with history of diabetes. SOCIAL HISTORY: The patient denies any tobacco, alcohol, or drug use. She is retried and disabled due to her back. She lives by herself and she was discharged from rehab facility 1 week ago. The surrogate decision making person is her sister, Karen. REVIEW OF SYSTEMS: The patient states that "everything hurts." She states that her left elbow hurts as well as her back and her buttocks after the fall. She denies any chest pain or shortness of breath. All the remaining 14 systems were reviewed with the patient and were otherwise negative. PHYSICAL EXAMINATION GENERAL APPEARANCE: The patient is a very pleasant 62-year-old obese female, who is in no acute distress. Alert, awake, and oriented x3. VITAL SIGNS: Blood pressure of 137/59, heart rate of 78 and regular, respiratory rate 20, oxygen saturation 93% on room air, and temperature 97.9. HEENT: Atraumatic, normocephalic. Eyes: Pupils are equal, round, and reactive to light and accommodation. Oropharynx clear. Mucosa moist. NECK: Supple. No JVD, no bruits bilaterally. RESPIRATORY: Clear to auscultation bilaterally. CARDIOVASCULAR: Regular rate and rhythm. No murmur. ABDOMEN: Protuberant, soft, nontender. Bowel sounds are present in all 4 quadrants. EXTREMITIES: There is trace bilateral pedal edema. Pulses +2 bilaterally. There is no clubbing or cyanosis. SKIN: The patient has slight erythema noted on her back and blister on her left elbow. There is a well-healed scar on the left knee postsurgical. NEUROLOGIC: Speech clear. Cranial nerves II through XII grossly intact. Motor strength is 5/5 bilaterally. The patient has problems with raising her left leg, not due to motor weakness, but due to pain. PSYCHIATRIC EVALUATION: Oriented x3, a rather poor historian, one tries to recall the recent events, but no evidence of anxiety or depression. LABORATORY DATA: Showed of 137, potassium 3.6, chloride 96, carbon dioxide 34 , BUN 12, creatinine 0.68. Liver function tests showed AST of 107, ALT of 43, alkaline phosphatase of 105. Total CPK of 4222. Troponin of 0.04, second troponin of 0.05. Magnesium of 1.6. Brain CT : Impression: "No acute intracranial pathology. Moderate sinus mucosal or inflammatory disease without air fluid level to suggest acute sinusitis." C-spine CT: Impression: "Degenerative disk disease and osteoarthritis. No acute osseous injury to cervical spine." Elbow X-ray: Impression: "Osteoarthritis. Osteopenia. No acute osseous injury." Lumbar spine x-ray: Impression: "Osteopenia. Status post spinal fusion." CT angiogram of the chest is pending at the time of dictation. The patient's EKG showed heart rate of 75 beats per minute with possibility of WPW. The patient's QRS was similar to prior EKGs from December of 2016. The patient has negative T-waves in lateral leads, which is also chronic. ASSESSMENT AND PLAN: 1. In regards to the patient's syncope, at this point it appears that the patient actually fell first and she remembers falling and then she had loss of consciousness after she hit the floor, which is consistent with concussion. At this point though, nevertheless, the patient is going to be observed on telemetry monitored bed and her pacemaker is going to be interrogated. Her pacemaker is from [employer]. 2. In regards to indeterminate troponin. The patient has a history of indeterminate troponin. She also has rhabdomyolysis, which would increase her troponin levels mildly. Nevertheless, we will continue telemetry monitoring bed and followup troponins. Her EKG has no acute changes. 3. In regards to the patient's rhabdomyolysis, the patient already received intravenous hydration in the emergency department and she is going to be continued on intravenous fluids overnight. Due to her history of needing diuretic on a daily basis, I will necessitate for the time being gentle hydration. If her CPKs continue to trend up in the morning, that may need to be increased. 4. The patient's liver function elevation is most likely due to elevation of CPK. Nevertheless, that is going to be repeated in the morning. 5. Hypomagnesemia. She is going to be replaced intervenously. I will check her magnesium level in the morning. 6. In regards to the patient's diabetes, the patient is going to be placed on insulin sliding scale and metformin is going to be held for the time being while hospitalized. 7. For her chronic pain, Percocet is going to be continued. 8. For chronic anxiety, lorazepam is going to be continued on a p.r.n. basis. 9. For DVT prophylaxis, the patient is going to be placed on heparin subcutaneously. 10. The patient is code status is full. Her surrogate and her healthcare proxy is her sister, Tata Omer. 11. In regards to the patient's hypothyroidism, her TSH today was 0.9 and her current dose of Synthroid is going to be continued. TIME SPENT: Please note that approximately 75 minutes were spent on admission of this patient, more than half that time was spent [id number] with the patient during the interview and physical exam. Anticipated time of stay over 2 days. Due to the patient's rhabdomyolysis as well as ambulatory dysfunction, physical therapy and occupation therapy is going to be obtained. Likely, the patient will need to be discharged back to rehab. It also needs to be taken under consideration if the patient will require long-term placement in the skilled nursing since she had been in and out of rehab facilities for the past year. [id number]/[facility] #: [id number] KARRI
[2017-02-12] MEDS: Zolpidem TAB* 10 MG PO PRN ×2 (00:18→21:58)
[2017-02-12] MEDS: Atorvastatin* 20 MG TAB PO SCH ×2 (00:18→21:57)
[2017-02-12] MEDS: LORazepam TAB(*) 0.5 MG PO PRN ×4 (00:18→21:57)
[2017-02-12] MEDS: oxyCODONE/Acetamin 5/325 MG* TAB PO SCH ×3 (01:26→09:05)
[2017-02-12 05:30] LABS: ALT 42 U/L (7-52); AST 111 U/L (13-39); Albumin 3.4 g/dL (3.2-5.2); Alkaline Phosphatase 100 U/L (34-104); Anion Gap 9 mmol/L (2-11); BUN/Creatinine Ratio 15.4 (8-20); Blood Urea Nitrogen 12 mg/dL (6-24); CO2 Carbon Dioxide 25 mmol/L (22-32); Calcium 8.4 mg/dL (8.6-10.3); Chloride 100 mmol/L (101-111); EGFR African American 95.6 (>60); EGFR Non-African American 74.4 (>60); Globulin 3.5 g/dL (2-4); Glucose 238 mg/dL (70-100); Potassium 3.6 mmol/L (3.5-5.0); Sodium 134 mmol/L (133-145); Total Protein 6.9 g/dL (6.4-8.9)
[2017-02-12] MEDS: Heparin VIAL(*) 5000 UNITS/ML VIAL (FIVE THOUSAND) SUBCUT SCH ×3 (05:47→21:58)
[2017-02-12] MEDS: Levothyroxine TAB* 75 MCG TAB PO SCH (05:47)
[2017-02-12 06:55] LABS: Urine Bacteria Absent (Absent)
[2017-02-12 07:03] LABS: Urine Bilirubin Negative (Negative); Urine Glucose N (Negative); Urine Nitrite N (Negative)
--- NOTE | 2017-02-12 07:49 | RAD ---
INDICATION: Chest pain. Short of breath. Evaluate for pulmonary embolus. COMPARISON: Chest x-ray December 31, 2016 TECHNIQUE: Axial source images were obtained from the thoracic inlet to the hemidiaphragms following administration of 85 cc Omnipaque 350. There was an initial injection of 30 mL but the injector failed the stenosis dating the second injection to allow for adequate opacification of the pulmonary arteries. CT angiographic technique was utilized. Coronal and sagittal reconstructed images were acquired. CHEST FINDINGS: Neck/thyroid: The visualized neck to include the thyroid appear normal. Chest wall: There are no acute abnormalities of the bony thorax or chest wall. There is no supraclavicular, infraclavicular, or axillary lymphadenopathy. Lungs : There are no pulmonary parenchymal masses or infiltrates. There is minor air trapping and there is suspected mild interstitial edema. There are no endobronchial lesions. Cardiomediastinal structures: There is no CT evidence of acute pulmonary embolic disease. There is mild cardiomegaly. There is artifact from a cardiac pacemaker. There is no pericardial effusion. There is no evidence of aortic aneurysm or dissection. There is no mediastinal or hilar adenopathy. The esophagus appears normal. Pleura : There are no pleural-based masses or effusions. Other: Limited views the upper abdomen demonstrate hepatomegaly with hepatic steatosis. There is postoperative change but the thoracolumbar junction.. IMPRESSION: NO CT EVIDENCE OF ACUTE PULMONARY EMBOLIC DISEASE. SUSPECT MILD INTERSTITIAL EDEMA. CARDIOMEGALY.
[2017-02-12 08:18] LABS: Hematocrit 34 % (35-47); Hemoglobin 11.2 g/dl (12.0-16.0); Mean Corpuscular HGB Conc 33 g/dl (31-36); Mean Corpuscular Hemoglobin 30 pg (27-31); Mean Corpuscular Volume 90 fL (80-97); Mean Platelet Volume 9 um3 (7.4-10.4); Red Blood Count 3.74 10^6/ul (4.0-5.4); Red Cell Distribution Width 16 % (10.5-15); White Blood Count 5.7 10^3/ul (3.5-10.8)
[2017-02-12] MEDS: Polyethylene Glycol 3350* 17 GM PACKET PO PRN (09:03)
[2017-02-12] MEDS: Insulin LISPRO* 1 UNITS UNIT SUBCUT SCH ×3 (09:04→18:51)
[2017-02-12] MEDS: Aspirin EC Low Dose* 81 MG TAB.EC PO SCH (09:05)
[2017-02-12] MEDS: Furosemide TAB* 40 MG PO SCH (09:05)
[2017-02-12] MEDS: NS 0.9% 1000 ML* 1,000 ML IV SCH (09:07)
--- NOTE | 2017-02-12 10:33 | PN ---
Subjective Date of Service: 02/12/17 Interval History: Ms. Barragan feels sore this morning. Her only complaint is back, knee, and shoulder pain. No more lightheadedness, dizziness, or weakness. No recent illness, she denies fevers, chills, diarrhea, or constipation. She does report that she had not been feeling well all day yesterday with weakness and poor appetite. Family History: Unchanged from Admission Social History: Unchanged from Admission Past Medical History: Unchanged from Admission Objective Active Medications: Aspirin (Aspirin Ec Low Dose*) 81 mg PO DAILY [facility] Last Admin: 02/12/17 09:05 Dose: 81 mg Atorvastatin Calcium (Lipitor*) 20 mg PO BEDTIME [facility] Last Admin: 02/12/17 00:18 Dose: 20 mg Dextrose (D50w Syringe 50 Ml*) 12.5 gm IV PUSH .FOR FS < 60 - SS PRN PRN Reason: FS < 60 Furosemide (Lasix Tab*) 40 mg PO DAILY [facility] Last Admin: 02/12/17 09:05 Dose: 40 mg Heparin Sodium (Porcine) (Heparin Vial(*)) 5,000 units SUBCUT Q8HR [facility] Last Admin: 02/12/17 05:47 Dose: 5,000 units Sodium Chloride (Ns 0.9% 1000 Ml*) 1,000 mls @ 125 mls/hr IV PER RATE [facility] Last Admin: 02/12/17 09:07 Dose: 125 mls/hr Insulin Human Lispro (Humalog*) 0 units SUBCUT AC [facility] PRN Reason: Protocol Last Admin: 02/12/17 09:04 Dose: 2 unit Levothyroxine Sodium (Synthroid Tab*) 75 mcg PO 0600 [facility] Last Admin: 02/12/17 05:47 Dose: 75 mcg Lorazepam (Ativan Tab(*)) 0.5 mg PO Q6H PRN PRN Reason: ANXIETY Last Admin: 02/12/17 09:12 Dose: 0.5 mg Oxycodone/Acetaminophen (Percocet 5/325 Tab*) 1 tab PO Q4H [facility] Last Admin: 02/12/17 09:05 Dose: 1 tab Polyethylene Glycol/Electrolytes (Miralax*) 17 gm PO DAILY PRN PRN Reason: CONSTIPATION Last Admin: 02/12/17 09:03 Dose: 17 gm Zolpidem Tartrate (Ambien Tab*) 10 mg PO BEDTIME PRN PRN Reason: SLEEP Last Admin: 02/12/17 00:18 Dose: 10 mg Vital Signs 02/11/17 02/11/17 02/12/17 21:19 22:33 00:18 Temperature 98.7 F 98.0 F Pulse Rate 75 65 Respiratory 14 20 18 Rate Blood Pressure 130/75 133/59 (mmHg) O2 Sat by Pulse 95 93 Oximetry 02/12/17 02/12/17 02/12/17 01:26 02:18 03:26 Temperature Pulse Rate Respiratory 18 18 18 Rate Blood Pressure (mmHg) O2 Sat by Pulse Oximetry 02/12/17 02/12/17 02/12/17 04:10 04:13 04:16 Temperature 98.4 F Pulse Rate 63 64 74 Respiratory 16 Rate Blood Pressure 131/49 145/63 161/84 (mmHg) O2 Sat by Pulse 92 Oximetry 02/12/17 02/12/17 02/12/17 05:47 07:47 07:52 Temperature 97.7 F Pulse Rate 62 Respiratory 20 20 18 Rate Blood Pressure 119/62 (mmHg) O2 Sat by Pulse 93 Oximetry 02/12/17 02/12/17 09:05 09:12 Temperature Pulse Rate Respiratory 20 20 Rate Blood Pressure (mmHg) O2 Sat by Pulse Oximetry Oxygen Devices in Use Now: None Appearance: alert, anxious, no distress Eyes: No Scleral Icterus, PERRLA Ears/Nose/Mouth/Throat: NL Teeth, Lips, Gums, Clear Oropharnyx Neck: NL Appearance and Movements; NL JVP, No Thyroid Enlargement, Masses Respiratory: Symmetrical Chest Expansion and Respiratory Effort, Clear to Auscultation Cardiovascular: NL Sounds; No Murmurs; No JVD, RRR, - - pacer left chest wall Abdominal: No Hepatosplenomegaly, - - distended, nontender Lymphatic: No Cervical Adenopathy Extremities: - - 1+ pitting edema b/l Skin: No Rash or Ulcers Neurological: Alert and Oriented x 3 Result Diagrams: 02/12/17 07:37 02/12/17 05:00 Assess/Plan/Problems-Billing Assessment: 1. Syncope Her EKG does have delta waves laterally, but given her age, a diagnosis of WPW would be unlikely. I discussed the findings with cardiology, who recommend monitoring her on telemetry to evaluate for svt. So far, there have been no events on telemetry. Awaiting pacemaker interrogation. She does appear deconditioned and may require return to rehab; PT/OT to evaluate. She does not appear volume deplete, so I doubt orthostasis played a role. Polypharmacy may be contributing, however. 2. Positive stress test September 2016 At her September admission, records from OSH were obtained and showed a negative LHC in 2015 at the time of an equally positive stress test. No ischemic changes on EKG 3. Elevated CK No rhabdomyolysis with negative UA. Can be explained by fall 4. DM2 Holding metformin; on sliding scale. 5. Anxiety on chronic benzodiazepines. Again, polypharmacy may be contributing to her falls.
[2017-02-12 10:57] LABS: Creatine Kinase 3060 U/L (10-223)
[2017-02-12] MEDS ORDERED: Perflutren Lipid Microsphere* 3 ML VIAL ONE (11:08)
--- NOTE | 2017-02-12 12:10 | ECHO ---
Patient: AISHWARYA PEREZ [facility] Rec#: [id number] : 1955 Date: 02/12/2017 Age: 62y Height: 162.56 cm / 64.0 in Weight: 127.01 kg / 279.9 lbs Sex: F BSA: 2.26 Room#: [facility] Admit Date#: 02/11/2017 Type: Inpatient Referring: Marisol Nina MD Reading: Anthony Harkins MD [employer] Specialist: Karen Zapata,RDCS,RDMS CC: SARAH DALY CC: Abelino Hdez DO Transthoracic Echocardiogram Indication: Syncope BP: 119/62 HR: 65 Rhythm: NSR Findings History: CAD, pacemaker, DM HTN, HLD, DVT, pericarditis Technical Comments: The study is technically limited due to poor acoustic windows. Completed 1150 Left Ventricle: The left ventricular chamber size is normal. Mild to moderate concentric left ventricular hypertrophy is observed. There is normal left ventricular systolic function. The estimated ejection fraction is 55-60%. Abnormal left ventricular diastolic filling is observed, consistent with impaired relaxation. Left Atrium: The left atrium is moderately dilated. Right Ventricle: The right ventricular chamber size and systolic function are within normal limits. The right ventricle wall thickness is mildly increased. Right Atrium: The right atrium is mild to moderately dilated. Aortic Valve: The aortic valve structure is not well visualized. There is no evidence of aortic valve thickening. There is no evidence of aortic regurgitation. There is no evidence of aortic stenosis. Mitral Valve: There is mitral annular calcification. There is no evidence of mitral regurgitation. There is no evidence of mitral stenosis. Tricuspid Valve: The tricuspid valve leaflets are not thickened. There is trace tricuspid regurgitation. Unable to estimate the right ventricular systolic pressure. Pulmonic Valve: The pulmonic valve structure is not well visualized. Pericardium: There is no significant pericardial effusion. Aorta: The aortic root appears normal. The aortic arch is not well visualized. Pulmonary Artery: The main pulmonary artery appears normal. Venous: The inferior vena cava is dilated. There is less than 50% respiratory change in the inferior vena cava dimension. Contrast: Definity was used to optimize study. A total of 3 ml was given Summary: There are changes noted when compared to the previous study done on 07/07/2015, TR is now trace instead of mild. Now unable to evaluate for PHHTN instead of mild then. Conclusions The left ventricular chamber size is normal. Mild to moderate concentric left ventricular hypertrophy is observed. The estimated ejection fraction is 55-60%. The endocardium is not well visualized. Abnormal left ventricular diastolic filling is observed, consistent with impaired relaxation. The left atrium is moderately dilated. The right atrium is mild to moderately dilated. There is trace tricuspid regurgitation. Unable to estimate the right ventricular systolic pressure. There are changes noted when compared to the previous study done on 07/07/2015, TR is now trace instead of mild. Now unable to evaluate for PHHTN instead of mild then. Measurements Name Value Normal Range Aortic Annulus 2.4 cm (1.4 - 2.6) Ao root diameter (2D) 3.1 cm (2.1 - 3.5) Ascending Ao 3 cm (2.1 - 3.4) LAd ISD 4CH 6 cm (2.9 - 5.3) LA ISD 4CH W 5.4 cm (2.5 - 4.5) Name Value Normal Range LA ESV SP 4CH (A/L) 87.06 ml - LA ESV SP 2CH (A/L) 116.39 ml - LA ESV BP (A/L) 105.81 ml - LA ESV BP (A/L) index 47 ml/m2 - LA ESV SP 4CH (MOD) 83.24 ml - LA ESV SP 2CH (MOD) 111.6 ml - Name Value Normal Range MV E-wave Vmax 1 m/sec - MV deceleration time 245 msec - MV A-wave Vmax 1.2 m/sec - MV E:A ratio 0.8 ratio - P. vein S-wave Vmax 0.5 m/sec - P. vein D-wave Vmax 0.5 m/sec - P. vein S:D Vmax ratio 1.1 ratio - P. vein A-wave duration 100 msec - Name Value Normal Range AV Vmax 1.8 m/sec - AV VTI 39 cm - AV peak gradient 13 mmHg - AV mean gradient 7.3 mmHg - LVOT Vmax 1.2 m/sec - LVOT VTI 30 cm - LVOT peak gradient 6 mmHg - LVOT mean gradient 3.4 mmHg - CANDI Vmax 0.6 m/sec - Name Value Normal Range MV Vmax 1.2 m/sec - MV VTI 37.7 cm - MV peak gradient 6 mmHg - MV mean gradient 2.2 mmHg - MV PHT 68 msec - MVA (PHT) 3.2 cm2 - Name Value Normal Range RAP 8 mmHg - IVC diameter 2.2 cm - Name Value Normal Range PV Vmax 0.8 m/sec - PV peak gradient 2.8 mmHg -
[2017-02-12] MEDS: oxyCODONE TAB* 5 MG TAB PO PRN ×2 (12:40→18:51)
--- NOTE | 2017-02-12 15:25 | ED ---
Shaneka Perez Alfonso, scribed for Pete Monroe MD on 02/11/17 at 1759 . Complex/Multi-Sys Presentation - HPI Summary HPI Summary: This patient is a 62 year old F BIBA [facility] [place] 1630 (3 hours ago) today. Patient stated that she was standing at the kitchen sink and the next thing she knew she was on the floor. She rates the pain 10/10 in severity. Symptoms alleviated by nothing. Patient reports back pain, left elbow pain, neck pain, headache, blurry vision, and dyspnea. Patient denies vomiting and diarrhea. PMHx includes DVT and DM. No PMHx COPD, emphysema. No PSHx of stents, CABG. - History Of Current Complaint Chief Complaint: EDSyncope Hx Obtained From: Patient Onset/Duration: Sudden Onset, Lasting Hours - 3 hours ago Timing: Constant Severity Currently: Severe Severity Initially: Severe Location: Pain At: - neck, back, head, left elbow Alleviating Factor(s): nothing Associated Signs And Symptoms: Positive: Other - back pain, left elbow pain, neck pain, headache, blurry vision, and dyspnea - Allergies/Home Medications Allergies/Adverse Reactions: Allergies Allergy/AdvReac Type Severity Reaction Status Date / Time Metoprolol [From Lopressor] Allergy Intermediate Tachycardia Verified 10/16/16 20:43 Penicillins Allergy Intermediate Rash Verified 10/16/16 20:43 Cefazolin [From Ancef] Allergy Unknown Unknown Verified 10/16/16 20:43 Reaction Details Sulfa Drugs Allergy Unknown Unknown Verified 10/16/16 20:43 Reaction Details Propofol Allergy SCREAMING Verified 10/16/16 20:43 AND THRASHING Morphine AdvReac Intermediate Vomiting Verified 10/16/16 20:43 Naproxen AdvReac Intermediate upset Verified 10/16/16 20:43 stomach, vomiting Citalopram [From Celexa] AdvReac Mild Insomnia Verified 10/16/16 20:43 Tartrazine [From Sonata] AdvReac Mild Insomnia Verified 10/16/16 20:43 Zaleplon [From Sonata] AdvReac Mild Insomnia Verified 10/16/16 20:43 NSAIDs AdvReac Ulcers, GI Verified 10/16/16 20:43 upset PMH/Surg Hx/FS Hx/Imm Hx Endocrine/Hematology History: Reports: Hx Blood Transfusions, Hx Thyroid Disease Denies: Hx Anticoagulant Therapy, Hx Blood Disorders, Hx Bone Marrow Disease , Hx Diabetes, Hx Systemic Lupus Erythematosus, Hx Sickle Cell Disease, Hx Anemia, Hx Unexplained Bleeding Cardiovascular History: Reports: Hx Cardiomegaly - SINCE IN HER TEENS, Hx Congestive Heart Failure, Hx Deep Vein Thrombosis - right leg after surgery, Hx Hypercholesterolemia, Hx Hypertension - W/MEDS, Hx Pacemaker/ICD, Other Cardiovascular Problems/Disorders - BRADYCARDIA due to hypothyroidism; pacer not in use Denies: Hx Angina, Hx Coronary Artery Disease, Hx Myocardial Infarction, Hx Valvular Heart Disease Respiratory History: Reports: Other Respiratory Problems/Disorders - sob associated - inspiratory pain left ribs, abdominal distention per pt Denies: Hx Asthma, Hx Chronic Obstructive Pulmonary Disease (COPD) GI History: Reports: Hx Gastroesophageal Reflux Disease, Hx Irritable Bowel, Other GI Disorders - ABDOMEN DISTENDED Denies: Hx Cirrhosis, Hx Ulcer History: Denies: Hx Renal Disease Musculoskeletal History: Reports: Hx Back Problems - back surgery x 3, Hx Orthopedic Injury, Other Musculoskeletal History - knee, hip surgery hx Denies: Hx Bursitis, Hx Congenital Bone Abnormalities, Hx Fibromyalgia, Hx Gout, Hx Osteoporosis, Hx Scoliosis, Hx Tendonitis Sensory History: Reports: Hx Contacts or Glasses Denies: Hx Cataracts, Hx Eye Injury, Hx Eye Prosthesis, Hx Glaucoma, Hx Macular Degeneration, Hx Vision Problem, Hx Deafness, Hx Hearing Aid, Hx Hearing Problem, Other Sensory Impairments Opthamlomology History: Reports: Hx Contacts or Glasses Denies: Hx Cataracts, Hx Eye Injury, Hx Eye Prosthesis, Hx Glaucoma, Hx Macular Degeneration, Hx Vision Problem, Other Sensory Impairments Neurological History: Denies: Hx Dementia, Hx Developmental Delay, Hx Headaches, Hx Migraine, Hx Seizures, Hx Spinal Cord Injury, Hx Transient Ischemic Attacks (TIA), Other Neuro Impairments/Disorders - LOC WITH FALLL Psychiatric History: Reports: Hx Anxiety Denies: Hx Attention Deficit Hyperactivity Disorder, Hx Eating Disorder, Hx Depression, Hx Panic Disorder, Hx Post Traumatic Stress Disorder, Hx Inpatient Treatment, Hx Schizophrenia, Hx Bipolar Disorder, Hx Suicide Attempt, Hx Substance Abuse, Other Psychiatric Issues/Disorders - Cancer History Cancer Type, Location and Year: skin cancer on right leg, removed Hx Chemotherapy: No Hx Radiation Therapy: No - Surgical History Surgery Procedure, Year, and Place: left shoulder surgery Feb 13 2014 csections x 3. partial hysterectomy. 3 back surgeries. right hip REPLACEMENT. LEFT KNEE RECONSTRUCTION. PACEMAKER [id number]. 3 C- SECTIONS. RIGHT SHOULDER ROTATOR CUFF REPAIR - 15 YEARS AGO. UMBILICAL HERNIA REPAIR Hx Anesthesia Reactions: Yes - PROPOFOL REACTION- THRASHING AND SCREAMING Infectious Disease History: No Infectious Disease History: Reports: Hx Clostridium Difficile, Hx of Known/ Suspected MRSA Denies: Hx Hepatitis, Hx Human Immunodeficiency Virus (HIV), Hx Shingles, Hx Tuberculosis, Traveled Outside the [place] in Last 30 Days - Family History Known Family History: Positive: Cardiac Disease - CAD, Diabetes, Other - Breast CA - Social History Alcohol Use: None Hx Substance Use: No Substance Use Type: Reports: None, Prescribed Hx Tobacco Use: No Smoking Status (MU): Never Smoked Tobacco Review of Systems Negative: Fever, Chills Positive: Blurred Vision. Negative: Erythema Negative: Sore Throat Negative: Chest Pain Positive: Other - dyspnea. Negative: Shortness Of Breath, Cough Negative: Abdominal Pain, Vomiting, Diarrhea, Nausea Negative: dysuria, hematuria Positive: Other - back pain, neck pain, left elbow pain. Negative: Myalgia, Edema Negative: Rash Neurological: Other - Negative dizziness Positive: Headache, Syncope All Other Systems Reviewed And Are Negative: Yes Physical Exam Triage Information Reviewed: Yes Vital Signs On Initial Exam: Initial Vitals Temp Pulse Resp BP Pulse Ox 97.9 F 78 20 137/59 93 02/11/17 17:42 02/11/17 17:42 02/11/17 17:42 02/11/17 17:42 02/11/17 17:42 Vital Signs Reviewed: Yes Appearance: Positive: Well-Appearing, Well-Nourished Skin: Positive: Warm, Dry Head/Face: Positive: Other - Normocephalic; No Racoons eyes; No battles sign; No abrasion; No contusion; No hemotympanum; No maxilla facial tenderness or instability; Dentition are smooth; No dental trauma; No trismus Eyes: Positive: EOMI, LOLI ENT: Positive: Other - dry mucous membranes Neck: Positive: Other: - Trachea is midline. No stridor; No JVD; No step off; No posterior cervical spine tenderness Respiratory/Lung Sounds: Positive: Other - Effort normal; Breath sounds normal; Equal chest rise; No flail segment; No rib tenderness; No sternal tenderness Cardiovascular: Positive: RRR, Other - Heart sounds normal; Intact distal pulses ; The pedal pulses are 2+ and symmetric. Radial pulses are 2+ and symmetric. Abdomen Description: Positive: Nontender, Soft, Other: - Appearance normal. No palpable pulsatile mass; No Cullens sign; No Mancilla-Turners sign. Negative: Distended Musculoskeletal: Positive: Other - Full ROM and no tenderness at hips, ankles, shoulders, elbows and knees; No joint swelling; No vertebral body tenderness; No paraspinal tenderness; No step off or deformity of the spine; Pelvis is stable to lateral compression and rock Neurological: Positive: Alert, Oriented to Person Place, Time, Other - Strength 5/5 all extremities Psychiatric: Positive: Affect/Mood Appropriate, Other - cooperative Diagnostics - Vital Signs Vital Signs Temp Pulse Resp BP Pulse Ox 02/11/17 17:42 97.9 F 78 20 137/59 93 - Laboratory Lab Results: Lab Results 02/11/17 02/11/17 02/11/17 Range/Units 18:51 18:51 18:51 WBC 7.7 (3.5-10.8) 10^3/ul RBC 3.91 L (4.0-5.4) 10^6/ul Hgb 11.7 L (12.0-16.0) g/dl Hct 35 (35-47) % MCV 90 (80-97) fL MCH 30 (27-31) pg MCHC 33 (31-36) g/dl RDW 16 H (10.5-15) % Plt Count 288 (150-450) 10^3/ul MPV 8 (7.4-10.4) um3 Neut % (Auto) 67.9 (38-83) % Lymph % (Auto) 21.1 L (25-47) % [place] % (Auto) 9.8 H (1-9) % Eos % (Auto) 0.8 (0-6) % Baso % (Auto) 0.4 (0-2) % Absolute Neuts (auto) 5.2 (1.5-7.7) 10^3/ul Absolute Lymphs (auto) 1.6 (1.0-4.8) 10^3/ul Absolute Monos (auto) 0.7 (0-0.8) 10^3/ul Absolute Eos (auto) 0.1 (0-0.6) 10^3/ul Absolute Basos (auto) 0 (0-0.2) 10^3/ul Absolute Nucleated RBC 0.01 10^3/ul Nucleated RBC % 0.1 D-Dimer, Quantitative (Less Than 230) ng/mL Sodium 137 (133-145) mmol/L Potassium 3.6 (3.5-5.0) mmol/L Chloride 96 L (101-111) mmol/L Carbon Dioxide 34 H (22-32) mmol/L Anion Gap 7 (2-11) mmol/L BUN 12 (6-24) mg/dL Creatinine 0.68 (0.51-0.95) mg/dL Est GFR ( Amer) 112.0 (>60) Est GFR (Non-Af Amer) 87.1 (>60) BUN/Creatinine Ratio 17.6 (8-20) Glucose 185 H (70-100) mg/dL Lactic Acid 1.3 (0.5-2.0) mmol/L Calcium 9.0 (8.6-10.3) mg/dL Magnesium 1.6 L (1.9-2.7) mg/dL Total Bilirubin 0.70 (0.2-1.0) mg/dL AST 107 H (13-39) U/L ALT 43 (7-52) U/L Alkaline Phosphatase 105 H (34-104) U/L Total Creatine Kinase 4222 H (10-223) U/L Troponin I 0.04 H* (<0.04) ng/mL Total Protein 7.3 (6.4-8.9) g/dL Albumin 3.7 (3.2-5.2) g/dL Globulin 3.6 (2-4) g/dL Albumin/Globulin Ratio 1.0 (1-3) TSH 0.91 (0.34-5.60) mcIU/mL 02/11/17 Range/Units 18:51 WBC (3.5-10.8) 10^3/ul RBC (4.0-5.4) 10^6/ul Hgb (12.0-16.0) g/dl Hct (35-47) % MCV (80-97) fL MCH (27-31) pg MCHC (31-36) g/dl RDW (10.5-15) % Plt Count (150-450) 10^3/ul MPV (7.4-10.4) um3 Neut % (Auto) (38-83) % Lymph % (Auto) (25-47) % [place] % (Auto) (1-9) % Eos % (Auto) (0-6) % Baso % (Auto) (0-2) % Absolute Neuts (auto) (1.5-7.7) 10^3/ul Absolute Lymphs (auto) (1.0-4.8) 10^3/ul Absolute Monos (auto) (0-0.8) 10^3/ul Absolute Eos (auto) (0-0.6) 10^3/ul Absolute Basos (auto) (0-0.2) 10^3/ul Absolute Nucleated RBC 10^3/ul Nucleated RBC % D-Dimer, Quantitative 438 H (Less Than 230) ng/mL Sodium (133-145) mmol/L Potassium (3.5-5.0) mmol/L Chloride (101-111) mmol/L Carbon Dioxide (22-32) mmol/L Anion Gap (2-11) mmol/L BUN (6-24) mg/dL Creatinine (0.51-0.95) mg/dL Est GFR ( Amer) (>60) Est GFR (Non-Af Amer) (>60) BUN/Creatinine Ratio (8-20) Glucose (70-100) mg/dL Lactic Acid (0.5-2.0) mmol/L Calcium (8.6-10.3) mg/dL Magnesium (1.9-2.7) mg/dL Total Bilirubin (0.2-1.0) mg/dL AST (13-39) U/L ALT (7-52) U/L Alkaline Phosphatase (34-104) U/L Total Creatine Kinase (10-223) U/L Troponin I (<0.04) ng/mL Total Protein (6.4-8.9) g/dL Albumin (3.2-5.2) g/dL Globulin (2-4) g/dL Albumin/Globulin Ratio (1-3) TSH (0.34-5.60) mcIU/mL Result Diagrams: 02/12/17 07:37 02/12/17 05:00 Lab Statement: Any lab studies that have been ordered have been reviewed, and results considered in the medical decision making process. - Radiology L-Spine X-Ray Radiology Interpretation Completed By: Radiologist - OSTEOPENIA. STATUS POST SPINAL FUSION. ED physician has reviewed this radiology report and agrees. Elbow X-Ray Radiology Interpretation Completed By: Radiologist - OSTEOPENIA. OSTEOARTHRITIS. NO ACUTE OSSEOUS INJURY. IF SYMPTOMS PERSIST, RECOMMEND REPEAT IMAGING. ED physician has reviewed this radiology report and agrees. - CT Brain CT Interpretation Completed By: Radiologist - NO ACUTE INTRACRANIAL PATHOLOGY. MODERATE SINUS MUCOSAL INFLAMMATORY DISEASE, WITHOUT AIR-FLUID LEVEL TO SUGGEST ACUTE SINUSITIS. ED physician has reviewed this radiology report and agrees. C-Spine CT Interpretation Completed By: Radiologist - DEGENERATIVE DISC DISEASE AND OSTEOARTHRITIS. NO ACUTE OSSEOUS INJURY TO THE CERVICAL SPINE. ED physician has reviewed this radiology report and agrees. CTA Chest CT Interpretation Completed By: Radiologist - CTA Chest reveals No evidence for pulmonary embolism or aortic dissection. ED physician has reviewed this radiology report and agrees. - EKG 1828 Cardiac Rate: NL - BPM 75 EKG Rhythm: Sinus Rhythm EKG Interpretation: No STEMI Complex Multi-Symp Course/Dx Assessment/Plan: This patient is a 62 year old F BIBA presenting to [facility] s/p fall at 1630 (3 hours ago) today. Patient stated that she was standing at the kitchen sink and the next thing she knew she was on the floor. She rates the pain 10/10 in severity. Symptoms alleviated by nothing. Patient reports back pain, left elbow pain, neck pain, headache, blurry vision, and dyspnea. Patient denies vomiting and diarrhea. PMHx includes DVT and DM. No PMHx COPD, emphysema. No PSHx of stents, CABG. An EKG reveals NSR. CT Brain reveals NO ACUTE INTRACRANIAL PATHOLOGY. MODERATE SINUS MUCOSAL INFLAMMATORY DISEASE, WITHOUT AIR-FLUID LEVEL TO SUGGEST ACUTE SINUSITIS. ED physician has reviewed this radiology report and agrees. CT C-Spine reveals DEGENERATIVE DISC DISEASE AND OSTEOARTHRITIS. NO ACUTE OSSEOUS INJURY TO THE CERVICAL SPINE. ED physician has reviewed this radiology report and agrees. Elbow X-Ray reveals OSTEOPENIA. OSTEOARTHRITIS. NO ACUTE OSSEOUS INJURY. IF SYMPTOMS PERSIST, RECOMMEND REPEAT IMAGING. ED physician has reviewed this radiology report and agrees. L-Spine X- Ray reveals OSTEOPENIA. STATUS POST SPINAL FUSION. ED physician has reviewed this radiology report and agrees. CTA Chest reveals No evidence for pulmonary embolism or aortic dissection. ED physician has reviewed this radiology report and agrees. Consulted Dr. Summers (hospitalist) who agrees to admit. The patient will be admitted with follow up from Dr. Summers. The patient is agreeable with this plan. - Diagnoses Provider Diagnoses: Syncope - Physician Notifications Discussed Care Of Patient With: Deisy Summers Time Discussed With Above Provider: 20:40 Instructed by Provider To: Other - Consulted Dr. Summers (hospitalist) who agrees to admit. Discharge - Discharge Plan Condition: Stable Disposition: ADMITTED TO [facility] documentation as recorded by the Shaneka espino Alfonso accurately reflects the service I personally performed and the decisions made by , Pete Monroe MD.
[2017-02-13] MEDS: oxyCODONE TAB* 5 MG TAB PO PRN ×4 (00:53→19:41)
[2017-02-13] MEDS: NS 0.9% 1000 ML* 1,000 ML IV SCH ×2 (01:46→15:25)
[2017-02-13] MEDS: LORazepam TAB(*) 0.5 MG PO PRN ×3 (05:10→18:22)
[2017-02-13] MEDS: Heparin VIAL(*) 5000 UNITS/ML VIAL (FIVE THOUSAND) SUBCUT SCH ×3 (05:10→21:11)
[2017-02-13] MEDS: Levothyroxine TAB* 75 MCG TAB PO SCH (05:10)
[2017-02-13] MEDS: Polyethylene Glycol 3350* 17 GM PACKET PO PRN (08:41)
[2017-02-13] MEDS: Furosemide TAB* 40 MG PO SCH (08:43)
[2017-02-13] MEDS: Aspirin EC Low Dose* 81 MG TAB.EC PO SCH (08:43)
[2017-02-13] MEDS ORDERED: Influenza VAC *QUAD* 2017-18* 0.5 ML SYRINGE IM ONE (09:00)
[2017-02-13] MEDS: Insulin LISPRO* 1 UNITS UNIT SUBCUT SCH ×3 (10:49→18:22)
[2017-02-13 14:30] LABS: BUN/Creatinine Ratio 17.9 (8-20); Calcium 8.8 mg/dL (8.6-10.3); EGFR Non-African American 88.6 (>60); Potassium 3.7 mmol/L (3.5-5.0)
--- NOTE | 2017-02-13 14:53 | PN ---
Subjective Date of Service: 02/13/17 Interval History: Patient seen this afternoon. Reports feeling improved, more stable on her feet. Confirms that she had very little to eat or drink leading up the her syncopal episode. No chest pain. Still reports some pain in her neck, back of the head and R knee. Seems confused as to the events leading up to her [facility] stay. Family History: Unchanged from Admission Social History: Unchanged from Admission Past Medical History: Unchanged from Admission Objective Active Medications: Aspirin (Aspirin Ec Low Dose*) 81 mg PO DAILY MIGUEL Atorvastatin Calcium (Lipitor*) 20 mg PO BEDTIME MIGUEL Dextrose (D50w Syringe 50 Ml*) 12.5 gm IV PUSH .FOR FS < 60 - SS PRN Furosemide (Lasix Tab*) 40 mg PO DAILY MIGUEL Heparin Sodium (Porcine) (Heparin Vial(*)) 5,000 units SUBCUT Q8HR MIGUEL Sodium Chloride (Ns 0.9% 1000 Ml*) 1,000 mls @ 100 mls/hr IV PER RATE MIGUEL Insulin Human Lispro (Humalog*) 0 units SUBCUT AC MIGUEL Levothyroxine Sodium (Synthroid Tab*) 75 mcg PO 0600 MIGUEL Lorazepam (Ativan Tab(*)) 0.5 mg PO Q6H PRN Oxycodone HCl (Roxycodone Tab*) 15 mg PO Q6H PRN Polyethylene Glycol/Electrolytes (Miralax*) 17 gm PO DAILY PRN Zolpidem Tartrate (Ambien Tab*) 10 mg PO BEDTIME PRN Vital Signs 02/12/17 02/12/17 02/12/17 15:52 16:02 17:52 Temperature 97.6 F Pulse Rate 63 Respiratory 24 16 20 Rate Blood Pressure 158/72 (mmHg) O2 Sat by Pulse 95 Oximetry 02/12/17 02/12/17 02/12/17 20:51 21:57 23:57 Temperature Pulse Rate Respiratory 20 20 18 Rate Blood Pressure (mmHg) O2 Sat by Pulse Oximetry 02/13/17 02/13/17 02/13/17 07:39 08:43 12:46 Temperature 98.1 F Pulse Rate 62 Respiratory 16 18 18 Rate Blood Pressure 154/81 (mmHg) O2 Sat by Pulse 93 Oximetry Oxygen Devices in Use Now: None Appearance: Middle-aged, morbidly obese, F, laying in bed in NAD Eyes: No Scleral Icterus Ears/Nose/Mouth/Throat: Mucous Membranes Moist Neck: NL Appearance and Movements; NL JVP Respiratory: Symmetrical Chest Expansion and Respiratory Effort, Clear to Auscultation Cardiovascular: NL Sounds; No Murmurs; No JVD, RRR Abdominal: - - Obese, soft, NTND, BS+ Lymphatic: No Cervical Adenopathy Extremities: - - Trace LE edema Skin: No Rash or Ulcers Neurological: Alert and Oriented x 3 Result Diagrams: 02/12/17 07:37 02/13/17 13:42 Additional Lab and Data: Lab Results 02/11/17 02/11/17 02/11/17 Range/Units 18:51 18:51 18:51 WBC 7.7 (3.5-10.8) 10^3/ul RBC 3.91 L (4.0-5.4) 10^6/ul Hgb 11.7 L (12.0-16.0) g/dl Hct 35 (35-47) % MCV 90 (80-97) fL MCH 30 (27-31) pg MCHC 33 (31-36) g/dl RDW 16 H (10.5-15) % Plt Count 288 (150-450) 10^3/ul MPV 8 (7.4-10.4) um3 Neut % (Auto) 67.9 (38-83) % Lymph % (Auto) 21.1 L (25-47) % Oliver % (Auto) 9.8 H (1-9) % Eos % (Auto) 0.8 (0-6) % Baso % (Auto) 0.4 (0-2) % Absolute Neuts (auto) 5.2 (1.5-7.7) 10^3/ul Absolute Lymphs (auto) 1.6 (1.0-4.8) 10^3/ul Absolute Monos (auto) 0.7 (0-0.8) 10^3/ul Absolute Eos (auto) 0.1 (0-0.6) 10^3/ul Absolute Basos (auto) 0 (0-0.2) 10^3/ul Absolute Nucleated RBC 0.01 10^3/ul Nucleated RBC % 0.1 D-Dimer, Quantitative (Less Than 230) ng/mL Sodium 137 (133-145) mmol/L Potassium 3.6 (3.5-5.0) mmol/L Chloride 96 L (101-111) mmol/L Carbon Dioxide 34 H (22-32) mmol/L Anion Gap 7 (2-11) mmol/L BUN 12 (6-24) mg/dL Creatinine 0.68 (0.51-0.95) mg/dL Est GFR ( Amer) 112.0 (>60) Est GFR (Non-Af Amer) 87.1 (>60) BUN/Creatinine Ratio 17.6 (8-20) Glucose 185 H (70-100) mg/dL Lactic Acid 1.3 (0.5-2.0) mmol/L Calcium 9.0 (8.6-10.3) mg/dL Magnesium 1.6 L (1.9-2.7) mg/dL Total Bilirubin 0.70 (0.2-1.0) mg/dL AST 107 H (13-39) U/L ALT 43 (7-52) U/L Alkaline Phosphatase 105 H (34-104) U/L Total Creatine Kinase 4222 H (10-223) U/L Troponin I 0.04 H* (<0.04) ng/mL Total Protein 7.3 (6.4-8.9) g/dL Albumin 3.7 (3.2-5.2) g/dL Globulin 3.6 (2-4) g/dL Albumin/Globulin Ratio 1.0 (1-3) TSH 0.91 (0.34-5.60) mcIU/mL 02/11/17 Range/Units 18:51 WBC (3.5-10.8) 10^3/ul RBC (4.0-5.4) 10^6/ul Hgb (12.0-16.0) g/dl Hct (35-47) % MCV (80-97) fL MCH (27-31) pg MCHC (31-36) g/dl RDW (10.5-15) % Plt Count (150-450) 10^3/ul MPV (7.4-10.4) um3 Neut % (Auto) (38-83) % Lymph % (Auto) (25-47) % Oliver % (Auto) (1-9) % Eos % (Auto) (0-6) % Baso % (Auto) (0-2) % Absolute Neuts (auto) (1.5-7.7) 10^3/ul Absolute Lymphs (auto) (1.0-4.8) 10^3/ul Absolute Monos (auto) (0-0.8) 10^3/ul Absolute Eos (auto) (0-0.6) 10^3/ul Absolute Basos (auto) (0-0.2) 10^3/ul Absolute Nucleated RBC 10^3/ul Nucleated RBC % D-Dimer, Quantitative 438 H (Less Than 230) ng/mL Sodium (133-145) mmol/L Potassium (3.5-5.0) mmol/L Chloride (101-111) mmol/L Carbon Dioxide (22-32) mmol/L Anion Gap (2-11) mmol/L BUN (6-24) mg/dL Creatinine (0.51-0.95) mg/dL Est GFR ( Amer) (>60) Est GFR (Non-Af Amer) (>60) BUN/Creatinine Ratio (8-20) Glucose (70-100) mg/dL Lactic Acid (0.5-2.0) mmol/L Calcium (8.6-10.3) mg/dL Magnesium (1.9-2.7) mg/dL Total Bilirubin (0.2-1.0) mg/dL AST (13-39) U/L ALT (7-52) U/L Alkaline Phosphatase (34-104) U/L Total Creatine Kinase (10-223) U/L Troponin I (<0.04) ng/mL Total Protein (6.4-8.9) g/dL Albumin (3.2-5.2) g/dL Globulin (2-4) g/dL Albumin/Globulin Ratio (1-3) TSH (0.34-5.60) mcIU/mL Assess/Plan/Problems-Billing Assessment: Syncope, rhabdomyolysis in a 62 yo F with hx of chronic pain, hypothyroidism, DM , HTN - Patient Problems (1) Syncope Current Visit: No Comment: Orthostatic vs neuro-cardiogenic, possible component of polypharmacy as well. PPM interrogated with no significant arrhythmias. Has had some pacing on tele but no arrhytmias there either, delta waves noted on EKG. Continue PT, will monitor another night. (2) Rhabdomyolysis Current Visit: Yes Comment: Improving with IVF, will stop fluids later today. (3) Diabetes Current Visit: Yes Comment: BGs elevated. Resume home Metformin 1000 mg BID. Continue HISS. (4) Hypertension Current Visit: No Comment: Holding ARB (5) Chronic pain Current Visit: No Status: Acute Code(s): G89.29 - OTHER CHRONIC PAIN SNOMED Code(s): 28059735 Comment: Continue decreased pain regimen (6) DVT prophylaxis Current Visit: No Comment: SQ Heparin
[2017-02-13] MEDS: metFORMIN* 1,000 MG TAB PO SCH (18:21)
[2017-02-13] MEDS: Atorvastatin* 20 MG TAB PO SCH (21:11)
[2017-02-13] MEDS: Zolpidem TAB* 10 MG PO PRN (21:11)
[2017-02-14] MEDS: oxyCODONE TAB* 5 MG TAB PO PRN ×3 (00:11→08:23)
[2017-02-14] MEDS: LORazepam TAB(*) 0.5 MG PO PRN ×2 (00:11→06:13)
[2017-02-14] MEDS: Levothyroxine TAB* 75 MCG TAB PO SCH (06:13)
[2017-02-14] MEDS: Heparin VIAL(*) 5000 UNITS/ML VIAL (FIVE THOUSAND) SUBCUT SCH (07:09)
[2017-02-14 08:12] VITALS: BP 147/70
[2017-02-14] MEDS: Aspirin EC Low Dose* 81 MG TAB.EC PO SCH (08:23)
[2017-02-14] MEDS: metFORMIN* 1,000 MG TAB PO SCH (08:23)
[2017-02-14] MEDS: Furosemide TAB* 40 MG PO SCH (08:23)
[2017-02-14] MEDS: Insulin LISPRO* 1 UNITS UNIT SUBCUT SCH ×2 (08:23→12:07)
--- NOTE | 2017-02-14 10:48 | DCNOTE ---
Patient seen this morning. Says she is feeling much better, steady on her feet, ambulated with PT. Recognized she needs to take it easier at home. Keep hydrated. Encouraged her to stand slowly and gather herself prior to ambulating. On exam, RRR, s1 and s2 present, no m/g/r, lungs CTA B/L, no w/r/r, abd soft, NTND, BS+ Discharge home today as patient performed much better with PT. Suspect this was driven by orthostasis vs neurogenic syncope, likely some contribution from chronic pain/anixety meds. Pacer interrogation negative. Will discharge home today.
--- NOTE | 2017-02-15 08:01 | DS ---
CC: Dr. Cavanaugh DISCHARGE SUMMARY: DATE OF ADMISSION: 02/11/17 DATE OF DISCHARGE: 02/14/17 PRIMARY CARE PHYSICIAN: Dr. Cavanaugh. PRINCIPAL DISCHARGE DIAGNOSES: 1. Syncope. 2. Rhabdomyolysis. 3. Possible small concussion. SECONDARY DIAGNOSES: 1. Nonobstructive coronary artery disease. 2. Chronic pain, on narcotics. 3. Anxiety, on benzodiazepines. 4. Type 2 diabetes. 5. Sick sinus syndrome, status post pacemaker placement. 6. Hypothyroidism. STUDIES DONE DURING HOSPITALIZATION: CT of the brain, impression: No acute intracranial pathology, moderate sinus mucosal inflammatory disease without air fluid level to suggest acute sinusitis. CT of the cervical spine, impression: Degenerative disk disease and osteoarthritis. No acute osseo us injury to the cervical spine. Left elbow x-ray, impression: Osteopenia, osteoarthritis. No acute osseous injury. Lumbosacral x-ray, impression: Osteopenia, status post spinal fusion. CTA of the chest, impression: No CT evidence of acute pulmonary embolic disease. Suspect mild inter stitial edema, cardiomegaly. Transthoracic echocardiogram, conclusion: Left ventricular chamber size is normal. [id number] concentric LVH is observed. Estimated ejection fraction of 55% to 60%. The endocardium was not we ll visualized. Abnormal left ventricular diastolic filling is observed consistent with impaired rel axation. The left atrium is moderately dilated. The right atrium is mild to moderately dilated. T here is tricuspid regurgitation. Unable to estimate the right ventricular systolic pressure. There are changes noted when compared to the previous study done on 07/07/15. TR is now trace instead of mild, now unable to evaluate for pulmonary hypertension instead of mild then. HISTORY OF PRESENT ILLNESS AND HOSPITAL SUMMARY: Please see the full history and physical by Dr. Celestino Summers for full details. Briefly, Ms. Barragan is a 62-year- old female, who had been home for 1 week after discharge from [facility] when she had a syncopal episode. The patient states she had not been eating or drinking well and she got up to go to her sink, became lightheaded , and fell backwards striking her head on the ground. She feels that she was out for some amount of time and she was able to crawl to the phone when she came to and called for an ambulance. The patient here in the hospital was noted to have an elevated CK of 4222 and a mild troponin elevat ion. She was diagnosed with rhabdomyolysis; however, she had no renal dysfunction and no blood note d in her urine. It was felt that the patient's symptoms were possibly due to a combination of ortho static hypotension, neurogenic syncope, and possible contribution from her long-term narcotic and be nzodiazepine use. Here in the hospital, she was fluid resuscitated, then worked with Physical Thershruthi garrett, and over the following days improved significantly where it was felt that she was safe to be dis charged back home. She was instructed to maintain hydration and to make sure that she gathers herse lf after she stands up prior to ambulating. She will follow up with her PCP as an outpatient. Jovan mmend continued discussions with the PCP about reducing her outpatient narcotic doses. TIME SPENT: Total time spent on this discharge 45 minutes. This is a summary of the hospitalization, please see the full medical record for further details. [id number]/[facility] #: [id number]
== END 2017-02-14 13:01 | disposition home or self-care (01) | DRG 565 ==
LOC: ED 17:24 → MEDTELE 20:45 → OBSVTOIN 20:45
PROVIDERS: ADMIT Internal Medicine; ATTEND Hospitalist
DX: T79.6XXA Traumatic ischemia of muscle, initial encounter (principal); Z68.42 Body mass index [BMI] 45.0-49.9, adult; I49.5 Sick sinus syndrome; I36.1 Nonrheumatic tricuspid (valve) insufficiency; I11.9 Hypertensive heart disease without heart failure; E83.42 Hypomagnesemia; S06.0X1A Concussion with loss of consciousness of 30 minutes or less, initial encounter; W18.30XA Fall on same level, unspecified, initial encounter; I25.10 Atherosclerotic heart disease of native coronary artery without angina pectoris; F41.9 Anxiety disorder, unspecified; E11.9 Type 2 diabetes mellitus without complications; E03.9 Hypothyroidism, unspecified; M85.822 Other specified disorders of bone density and structure, left upper arm; M19.022 Primary osteoarthritis, left elbow; M85.88 Other specified disorders of bone density and structure, other site; E66.01 Morbid (severe) obesity due to excess calories; E78.5 Hyperlipidemia, unspecified; K58.9 Irritable bowel syndrome, unspecified; Z96.652 Presence of left artificial knee joint; Z79.84 Long term (current) use of oral hypoglycemic drugs; Z79.82 Long term (current) use of aspirin; Z79.899 Other long term (current) drug therapy; Z88.6 Allergy status to analgesic agent; Z88.5 Allergy status to narcotic agent; Z88.0 Allergy status to penicillin; Z88.8 Allergy status to other drugs, medicaments and biological substances; Z82.49 Family history of ischemic heart disease and other diseases of the circulatory system; Z83.3 Family history of diabetes mellitus; G89.29 Other chronic pain
CPT/HCPCS: 36415; 70450; 71275; 72110; 72125; 80048; 80053; 80076; 81003; 81015; 82550; 83605; 83735; 84443; 84484; 85025; 85379; 93005; 93306; A9270-GY; C8929; J1644; J3475; Q9967

== ENCOUNTER 2017-02-17 15:03 | Inpatient (IN) | payer MEDICARE, MEDICAID ==
[2017-02-17] MEDS ORDERED: Nitroglycerin 2% OINT* 1 GM PAK TOPICAL ONE (15:40)
[2017-02-17] MEDS ORDERED: Nitroglycerin TAB 0.4 MG* 0.4 MG TAB SL ONE (15:40)
--- NOTE | 2017-02-17 15:59 | RAD ---
INDICATION: Chest pain COMPARISON: Chest x-ray December 31, 2016 TECHNIQUE: Single AP portable view of the chest was obtained. FINDINGS: Image quality is compromised due to the relative inferiority of a portable chest x-ray. Stable postoperative findings include left upper chest cardiac pacemaker with 2 leads overlying the heart as well as transpedicular fixation device overlying the lower thoracic and lumbar spine. The heart and mediastinum exhibit normal size and contour. The lungs are grossly clear. There is no evidence of a large pleural effusion. Visualized bones are normal for the patient's age. IMPRESSION: No radiographic evidence for acute cardiopulmonary abnormality on this portable chest x-ray.
[2017-02-17 16:09] LABS: Hematocrit 37 % (35-47); Hemoglobin 12.2 g/dl (12.0-16.0); Mean Corpuscular HGB Conc 33 g/dl (31-36); Mean Corpuscular Hemoglobin 30 pg (27-31); Mean Corpuscular Volume 91 fL (80-97); Mean Platelet Volume 8 um3 (7.4-10.4); Red Blood Count 4.08 10^6/ul (4.0-5.4); Red Cell Distribution Width 17 % (10.5-15); White Blood Count 6.8 10^3/ul (3.5-10.8)
[2017-02-17 16:25] LABS: Albumin 3.8 g/dL (3.2-5.2); BUN/Creatinine Ratio 21.7 (8-20); Calcium 9.3 mg/dL (8.6-10.3); EGFR African American 129.4 (>60); EGFR Non-African American 100.6 (>60); Globulin 3.9 g/dL (2-4); Potassium 3.9 mmol/L (3.5-5.0); Total Bilirubin 0.7 mg/dL (0.2-1.0); Total Protein 7.7 g/dL (6.4-8.9)
[2017-02-17 16:26] LABS: Troponin I 0.01 ng/mL (<0.04)
[2017-02-17] MEDS ORDERED: oxyCODONE/Acetamin 5/325 MG* TAB PO ONE (17:41)
[2017-02-17] MEDS ORDERED: Iodixanol* (CONTRAST) 320 MG/ML 100 ML SDV IV ONE (17:58)
--- NOTE | 2017-02-17 19:02 | RAD ---
INDICATION: Chest pain. COMPARISON: Comparison is made with a prior CT angiogram of the chest from February 11, 2017. TECHNIQUE: A CT angiogram of the chest was performed with intravenous following intravenous injection of 85 ml of Visipaque 320 nonionic contrast. Contiguous axial sections were obtained from the lung apices through the lung bases. Images were reconstructed in the coronal and sagittal planes. FINDINGS: Examination of the pulmonary arteries is limited due to motion artifact which is most prominent at the left lung base. No intraluminal filling defect or pulmonary embolism is seen. The central pulmonary arteries appear enlarged suggestive of pulmonary artery hypertension which is unchanged. The heart appears mildly enlarged. No pericardial effusion is present. The thoracic aorta is normal in caliber and demonstrates homogeneous contrast opacification. No significant enlarged mediastinal or hilar lymph nodes are seen. There are mild dependent bilateral lower lobe infiltrates most consistent with atelectasis. No pleural effusion is seen. The liver appears moderately enlarged with decreased attenuation consistent with fatty infiltration. Post surgical changes are noted in the lower dorsal and upper lumbar spine. The patient is status post posterior spinal fusion with pedicle screws. No significant focal osseous abnormalities are seen. IMPRESSION: 1. LIMITED STUDY, NO PULMONARY EMBOLISM IS SEEN. 2. PROMINENCE OF THE CENTRAL PULMONARY ARTERIES SUGGESTIVE OF PULMONARY ARTERY HYPERTENSION. 3. HEPATOMEGALY AND HEPATIC STEATOSIS.
[2017-02-17] MEDS ORDERED: Ondansetron INJ* 2 MG/ML VIAL IV PRN (20:12)
[2017-02-17] MEDS ORDERED: Acetaminophen TAB* 325 MG PO PRN (20:12)
[2017-02-17] MEDS ORDERED: Polyethylene Glycol 3350* 17 GM PACKET PO PRN (20:15)
[2017-02-17] MEDS ORDERED: LORazepam INJ* 2 MG/ML 1 ML VIAL IV PUSH ONE (20:21)
--- NOTE | 2017-02-17 21:25 | ED ---
Fercho Perez Benjamin, scribed for Troy Miller MD on 02/17/17 at 1544 . HPI Chest Pain - HPI Summary HPI Summary: 62yo female c/o sudden onset mid sternal CP. Pt describes the pain as having pressure that radiates to her left arm and left neck. Pt was admitted last week at the [facility] after having a syncopal episode from her CP. Pt also reports SOB, nausea, and diaphoresis. Mutliple orthopedic surgeries, but no cardiac surgical hx. Pt has hx of HTN, HLD, and DM, and FHx of CAD. 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 - History of Current Complaint Chief Complaint: EDChestPainROMI Time Seen by Provider: 02/17/17 15:28 Hx Obtained From: Patient Onset/Duration: Started Hours Ago, Still Present Timing: Constant Initial Severity: Moderate Current Severity: Moderate Pain Intensity: 7 Pain Scale Used: 0-10 Numeric Chest Pain Location: Mid Sternal Chest Pain Radiates To:: Arm - left, Neck - left Character: Pressure/Squeezing Aggravating Factor(s): Nothing Alleviating Factor(s): Nothing Associated Signs and Symptoms: Positive: Chest Pain, Shortness of Breath, Diaphoresis, Nausea, Back Pain - chronic - Additional Pertinent History Primary Care Physician: [id number] - Allergy/Home Medications Allergies/Adverse Reactions: Allergies Allergy/AdvReac Type Severity Reaction Status Date / Time Metoprolol [From Lopressor] Allergy Intermediate Tachycardia Verified 10/16/16 20:43 Penicillins Allergy Intermediate Rash Verified 10/16/16 20:43 Cefazolin [From Ancef] Allergy Unknown Unknown Verified 10/16/16 20:43 Reaction Details Sulfa Drugs Allergy Unknown Unknown Verified 10/16/16 20:43 Reaction Details Propofol Allergy SCREAMING Verified 10/16/16 20:43 AND THRASHING Naproxen AdvReac Intermediate upset Verified 10/16/16 20:43 stomach, vomiting Citalopram [From Celexa] AdvReac Mild Insomnia Verified 10/16/16 20:43 Tartrazine [From Sonata] AdvReac Mild Insomnia Verified 10/16/16 20:43 Zaleplon [From Sonata] AdvReac Mild Insomnia Verified 10/16/16 20:43 NSAIDs AdvReac Ulcers, GI Verified 10/16/16 20:43 upset PMH/Surg Hx/FS Hx/Imm Hx Endocrine/Hematology History: Reports: Hx Blood Transfusions, Hx Thyroid Disease Denies: Hx Anticoagulant Therapy, Hx Blood Disorders, Hx Bone Marrow Disease , Hx Diabetes, Hx Systemic Lupus Erythematosus, Hx Sickle Cell Disease, Hx Anemia, Hx Unexplained Bleeding Cardiovascular History: Reports: Hx Cardiomegaly - SINCE IN HER TEENS, Hx Congestive Heart Failure, Hx Deep Vein Thrombosis - right leg after surgery, Hx Hypercholesterolemia, Hx Hypertension - W/MEDS, Hx Pacemaker/ICD, Other Cardiovascular Problems/Disorders - BRADYCARDIA due to hypothyroidism; pacer not in use Denies: Hx Angina, Hx Coronary Artery Disease, Hx Myocardial Infarction, Hx Valvular Heart Disease Respiratory History: Reports: Other Respiratory Problems/Disorders - sob associated - inspiratory pain left ribs, abdominal distention per pt Denies: Hx Asthma, Hx Chronic Obstructive Pulmonary Disease (COPD) GI History: Reports: Hx Gastroesophageal Reflux Disease, Hx Irritable Bowel, Other GI Disorders - ABDOMEN DISTENDED Denies: Hx Cirrhosis, Hx Ulcer History: Denies: Hx Dialysis, Hx Renal Disease Musculoskeletal History: Reports: Hx Back Problems - back surgery x 3, Hx Orthopedic Injury, Other Musculoskeletal History - knee, hip surgery hx Denies: Hx Bursitis, Hx Congenital Bone Abnormalities, Hx Fibromyalgia, Hx Gout, Hx Osteoporosis, Hx Scoliosis, Hx Tendonitis Sensory History: Reports: Hx Contacts or Glasses Denies: Hx Cataracts, Hx Eye Injury, Hx Eye Prosthesis, Hx Glaucoma, Hx Macular Degeneration, Hx Vision Problem, Hx Deafness, Hx Hearing Aid, Hx Hearing Problem, Other Sensory Impairments Opthamlomology History: Reports: Hx Contacts or Glasses Denies: Hx Cataracts, Hx Eye Injury, Hx Eye Prosthesis, Hx Glaucoma, Hx Macular Degeneration, Hx Vision Problem, Other Sensory Impairments Neurological History: Denies: Hx Dementia, Hx Developmental Delay, Hx Headaches, Hx Migraine, Hx Seizures, Hx Spinal Cord Injury, Hx Transient Ischemic Attacks (TIA), Other Neuro Impairments/Disorders - LOC WITH FALLL Psychiatric History: Reports: Hx Anxiety Denies: Hx Attention Deficit Hyperactivity Disorder, Hx Eating Disorder, Hx Depression, Hx Panic Disorder, Hx Post Traumatic Stress Disorder, Hx Inpatient Treatment, Hx Schizophrenia, Hx Bipolar Disorder, Hx Suicide Attempt, Hx Substance Abuse, Other Psychiatric Issues/Disorders - Cancer History Cancer Type, Location and Year: skin cancer on right leg, removed Hx Chemotherapy: No Hx Radiation Therapy: No - Surgical History Surgery Procedure, Year, and Place: left shoulder surgery Jul 08 2013 csections x 3. partial hysterectomy. 3 back surgeries. right hip REPLACEMENT. LEFT KNEE RECONSTRUCTION. PACEMAKER [id number]. 3 C- SECTIONS. RIGHT SHOULDER ROTATOR CUFF REPAIR - 15 YEARS AGO. UMBILICAL HERNIA REPAIR Hx Anesthesia Reactions: Yes - PROPOFOL REACTION- THRASHING AND SCREAMING Infectious Disease History: No Infectious Disease History: Reports: Hx Clostridium Difficile, Hx of Known/ Suspected MRSA Denies: Hx Hepatitis, Hx Human Immunodeficiency Virus (HIV), Hx Shingles, Hx Tuberculosis, Traveled Outside the [place] in Last 30 Days - Family History Known Family History: Positive: Cardiac Disease - CAD, Diabetes, Other - Breast CA - Social History Occupation: Disabled Lives: Alone Alcohol Use: None Hx Substance Use: No Substance Use Type: Reports: None, Prescribed Hx Tobacco Use: No Smoking Status (MU): Never Smoked Tobacco Review of Systems Positive: Skin Diaphoresis Eyes: Negative ENT: Negative Positive: Chest Pain Positive: Shortness Of Breath Positive: Nausea. Negative: Abdominal Pain Genitourinary: Negative Positive: no symptoms reported Positive: Arthralgia - chronic back pain Skin: Negative Neurological: Negative Psychological: Normal All Other Systems Reviewed And Are Negative: Yes Physical Exam Triage Information Reviewed: Yes Vital Signs On Initial Exam: Initial Vitals Temp Pulse Resp BP Pulse Ox 97.7 F 62 22 128/65 96 02/17/17 15:07 02/17/17 15:07 02/17/17 15:07 02/17/17 15:07 02/17/17 15:07 Vital Signs Reviewed: Yes Appearance: Positive: Well-Appearing Head/Face: Positive: Normal Head/Face Inspection Eyes: Positive: EOMI ENT: Positive: Normal ENT inspection Neck: Positive: Supple, Nontender Respiratory/Lung Sounds: Positive: Clear to Auscultation, Breath Sounds Present Cardiovascular: Positive: RRR. Negative: Murmur Abdomen Description: Positive: Nontender Pelvic Exam: Positive: external exam normal Musculoskeletal: Positive: Strength/ROM Intact Neurological: Positive: Sensory/Motor Intact, Alert, Oriented to Person Place, Time, CN Intact II-III - Elle Coma Scale Best Eye Response: 4 - Spontaneous Best Motor Response: 6 - Obeys Commands Best Verbal Response: 5 - Oriented Coma Scale Total: 15 Diagnostics - Vital Signs Vital Signs Temp Pulse Resp BP Pulse Ox 02/17/17 15:07 97.7 F 62 22 128/65 96 - Laboratory Result Diagrams: 02/17/17 15:54 02/17/17 15:54 Lab Statement: Any lab studies that have been ordered have been reviewed, and results considered in the medical decision making process. - Radiology CXR Xray Interpretation: No Acute Changes - ED Physician reviewed the radiology report and agrees with the finding. Radiology Interpretation Completed By: Radiologist - ED Physician reviewed the radiology report and agrees with the finding. - CT CTA Chest CT Interpretation: Positive (See Comments) - IMPRESSION: 1. LIMITED STUDY, NO PULMONARY EMBOLISM IS SEEN. 2. PROMINENCE OF THE CENTRAL PULMONARY ARTERIES SUGGESTIVE OF PULMONARY ARTERY HYPERTENSION. 3. HEPATOMEGALY AND HEPATIC STEATOSIS. CT Interpretation Completed By: Radiologist - ED Physician reviewed the radiology report and agrees with the finding. - EKG 1518. Cardiac Rate: NL - 63bpm EKG Rhythm: Sinus Rhythm EKG Comparison: No Significant Change - from 02/11/17. Chest Pain Course/Dx - Course Course Of Treatment: Reviewed pt's list of medication and allergies. Blood pressure noted. - Diagnoses Provider Diagnoses: Chest pain, Near syncope Discharge - Discharge Plan Condition: Good Disposition: ADMITTED TO [facility] The documentation as recorded by the Fercho espino Benjamin accurately reflects the service I personally performed and the decisions made by , Troy Miller MD.
[2017-02-17] MEDS: oxyCODONE/Acetamin 5/325 MG* TAB PO SCH (22:09)
[2017-02-17] MEDS: Atorvastatin* 20 MG TAB PO SCH (22:09)
[2017-02-17] MEDS: LORazepam TAB(*) 0.5 MG PO SCH (22:10)
[2017-02-17] MEDS: Enoxaparin(*) 40 MG/0.4 ML SYR SUBCUT SCH (22:10)
[2017-02-17] MEDS: Zolpidem TAB* 10 MG PO PRN (22:18)
[2017-02-18] MEDS: oxyCODONE/Acetamin 5/325 MG* TAB PO SCH ×4 (02:26→15:33)
--- NOTE | 2017-02-18 04:02 | HP ---
CC: Dr. Olga Cavanaugh* ADMISSION HISTORY AND PHYSICAL: DATE OF ADMISSION: 02/17/2017. PRIMARY CARE PROVIDER: Dr. Olga Cavanaugh ADMITTING PROVIDER: MODESTO Diane SUPERVISING PHYSICIAN: Dr. Bebeto Barroso* (dictated by MODESTO Diane). CHIEF COMPLAINT: Chest pain. HISTORY OF PRESENT ILLNESS: This is a 62-year-old female with chronic pain and anxiety as well as non-insulin dependent diabetes, history of prior DVT associated with surgery as well as obesity, hypertension, hyperlipidemia, and hypothyroidism, who presented to the emergency department today with complaints of chest pain. She states that she had associated tremulousness, severe anxiety , pain in her left arm and shortness of breath accompanying her chest pain, which prompted her to seek emergency care. She was here with a similar presentation just about a week ago, but with an associated syncope. She was also admitted in September with similar symptoms and underwent nuclear stress testing at that time with complaints of chest pain. In the emergency department, the patient shows no EKG changes or elevated troponins. Patient's stress test in September of this year showed [id number] area of ischemia and redness and moderate risk study. She had a similar appearing stress test in 2015 and underwent cardiac catheterization at [facility], which showed no occlusive disease. The application security consultant on-call in September with Dr. Alex, who reviewed her stress test results and felt that the infarct was likely fixed and consistent with artifact, in fact that she had a normal catheterization just one year prior lended itself to be a false positive test. When she was here last week, she underwent an echocardiogram, which was essentially normal with the exception of some mild diastolic dysfunction, but no significant valvular disease or wall motion abnormalities. Patient reports that she has had a significant amount of anxiety since her passed a few years ago and continues to express her concerns over living alone. The syncopal event last week caused her significant amounts of anxiety and she is afraid that she will have similar symptoms again. PAST MEDICAL HISTORY: 1. Chronic pain. 2. Anxiety. 3. Non-insulin dependent diabetes. 4. History of DVT associated with surgery. 5. Obesity. 6. Hyperlipidemia. 7. Hypothyroidism. 8. Hypertension. PAST SURGICAL HISTORY: 1. Pacemaker placement. 2. Knee replacement. HOME MEDICATIONS: 1. Aspirin 81 mg p.o. daily. 2. Lasix 40 mg p.o. daily. 3. Metformin 1000 mg p.o. twice daily. 4. Vitamin D 2000 units p.o. daily. 5. Irbesartan 300 mg p.o. daily. 6. Ativan 1 mg p.o. 4 times daily. 7. Levothyroxine 75 mcg p.o. daily. 8. Multivitamin 1 tablet p.o. daily. 9. MiraLAX 17 g p.o. daily. 10. Simvastatin 40 mg p.o. at bedtime. 11. Ambien 10 mg p.o. at bedtime. 12. Percocet 5/325 one tablet p.o. q.4 hours as needed for pain. SOCIAL HISTORY: Patient lives alone. Her within the last few years. She has no significant smoking history. No regular alcohol consumption or drug abuse. PHYSICAL EXAMINATION GENERAL: This is a very pleasant but anxious appearing middle-aged female, in no acute distress. VITAL SIGNS: Initial vitals, temperature 97.7 degrees Fahrenheit, pulse 62 beats per minute, respiratory rate 22, oxygen saturation 96% on room air, and blood pressure 128/65 mmHg. HEENT: Head is normocephalic, atraumatic. Mucous membranes are pink and moist. RESPIRATORY: Lungs are clear to auscultation without wheezes, crackles or rhonchi. CARDIOVASCULAR: Heart has regular rate and rhythm without murmurs, rubs, or gallops. ABDOMEN: Soft and nontender to palpitations. EXTREMITIES: No significant edema. SKIN: No concerning rashes or lesions. PSYCH: Patient is alert, appropriately oriented and appears mildly anxious. DIAGNOSTIC STUDIES/LAB DATA: CBC is unremarkable with a white blood cell count of 6800, hemoglobin of 12.2 g/dL and a platelet count of 319,000. D- dimer is elevated at 374. Comprehensive metabolic panel shows a sodium of 135, potassium of 3.9, BUN 13, creatinine 0.6. Random glucose of 146, transaminases and total bilirubin within normal limits. Troponin negative at 0.01 x2. Imaging: EKG shows a sinus rhythm with inverted T waves in V2 through V6, which is unchanged from prior. CTA of the chest shows no evidence of PE or other pulmonary process. Chest x-ray shows no acute process. ASSESSMENT AND PLAN: This is a 62-year-old female who presents with complaints of chest pain with history of chronic pain, anxiety, diabetes, obesity, hyperlipidemia, hypothyroidism, and hypertension. 1. Chest pain - this appears to be noncardiac in origin. The patient has had extensive cardiac workup over the last 6 months and a negative cardiac catheterization just about 1 year ago. She was last admitted about a week ago wit syncopal episode and she has significant amount of anxiety surrounding this and her episodes of chest pain. Discussed with patient that her cardiac workup is essentially complete at this time and there is no indication to repeat any cardiac imaging. First her troponins are negative without any EKG changes. Discussed alternatives for her chest pain and specifically anxiety being at the top of differential list. She acknowledged that she is extremely anxious of her living alone since the passing of her . She is on scheduled benzodiazepines, but may benefit from an SSRI and counseling. Also discussed that may be she would benefit from a Life Alert button or even considering an assisted living situation as she does report some difficulty with ADLs. We will plan to repeat one additional troponin and keep her on telemetry monitoring and repeat an EKG in the morning. No additional cardiac imaging will be repeated at this time. 2. Chronic pain - continue her home opioids. 3. Anxiety - continue her lorazepam but again recommended initiating SSRI therapy and counseling. 4. Non-insulin dependent diabetes - she will continue her metformin at this time. 5. Remote history of deep venous thrombosis associated with surgery. No anticoagulation at this time. 6. Morbid obesity with a BMI of 45. 7. Hyperlipidemia. 8. Hypothyroidism with a normal TSH as recently as last week and her current dose of levothyroxine will be continued. 9. Hypertension. Continue her home antihypertensive medications. 10. Code status. The patient is a full code. 11. DVT prophylaxis. The patient will be started on subcu Lovenox. 12. Healthcare proxy is her sister. DISPOSITION: Patient is being admitted to observation status with complaints of chest pain with estimated length of stay to be less than 1 midnight. Recommend close followup with her PCP to discuss anxiety symptoms and appropriate treatment. MODESTO DIANE [id number]/[facility] #: [id number] KARRI
[2017-02-18] MEDS: Levothyroxine TAB* 75 MCG TAB PO SCH (06:04)
[2017-02-18] MEDS: LORazepam TAB(*) 0.5 MG PO SCH ×4 (08:53→21:38)
[2017-02-18] MEDS: metFORMIN* 1,000 MG TAB PO SCH ×2 (08:53→16:53)
[2017-02-18] MEDS: Losartan TAB* 25 MG PO SCH (08:54)
[2017-02-18] MEDS: Furosemide TAB* 40 MG PO SCH (08:54)
[2017-02-18] MEDS: Aspirin EC Low Dose* 81 MG TAB.EC PO SCH (08:55)
[2017-02-18] MEDS: Multivitamins/Minerals TAB PO SCH (08:55)
--- NOTE | 2017-02-18 15:07 | PN ---
Subjective Date of Service: 02/18/17 Interval History: Ms. Barragan thinks that she is going into withdrawal because she has not had her oxycodone over the weekend and feels slightly sweaty, anxious, and has diarrhea. She denies chest pain. She reports that she came to the ED yesterday because she was anxious and out of her oxycodone. Objective Active Medications: Acetaminophen (Tylenol Tab*) 650 mg PO Q4H PRN Aspirin (Aspirin Ec Low Dose*) 81 mg PO DAILY [facility] Atorvastatin Calcium (Lipitor*) 20 mg PO BEDTIME [facility] Enoxaparin Sodium (Lovenox(*)) 40 mg SUBCUT Q24H [facility] Furosemide (Lasix Tab*) 40 mg PO DAILY [facility] Levothyroxine Sodium (Synthroid Tab*) 75 mcg PO DAILY@0600 [facility] Lorazepam (Ativan Tab(*)) 1 mg PO QID [facility] Losartan Potassium (Cozaar Tab*) 50 mg PO DAILY [facility] Metformin HCl (Glucophage*) 1,000 mg PO BID WITH MEALS [facility] Multivitamins/Minerals (Theragran/Minerals Tab*) 1 tab PO DAILY [facility] Ondansetron HCl (Zofran Inj*) 4 mg IV Q4H PRN Oxycodone/Acetaminophen (Percocet 5/325 Tab*) 1 tab PO Q4HR [facility] Polyethylene Glycol/Electrolytes (Miralax*) 17 gm PO DAILY PRN Zolpidem Tartrate (Ambien Tab*) 10 mg PO BEDTIME PRN Vital Signs: Temp Pulse Resp BP Pulse Ox 98.0 F 60 19 170/100 97 02/18/17 08:19 02/18/17 08:19 02/18/17 12:14 02/18/17 08:35 02/18/17 08:19 Oxygen Devices in Use Now: None Appearance: Female sitting on edge of bed in NAD Eyes: No Scleral Icterus Ears/Nose/Mouth/Throat: Mucous Membranes Moist Neck: Trachea Midline Respiratory: Symmetrical Chest Expansion and Respiratory Effort, Clear to Auscultation Cardiovascular: NL Sounds; No Murmurs; No JVD, No Edema Abdominal: NL Sounds; No Tenderness; No Distention Lymphatic: No Cervical Adenopathy Extremities: No Edema Skin: No Rash or Ulcers Neurological: Alert and Oriented x 3, NL Muscle Strength and Tone Nutrition: Taking PO's Result Diagrams: 02/17/17 15:54 02/17/17 15:54 Assess/Plan/Problems-Billing Assessment: Ms. Barragan is a 62 yo female with a PMH of morbid obesity, chronic pain, hypertension, hyperlipidemia who was admitted on 02/17/17 with chest pain thought to be secondary to anxiety. - Patient Problems (1) Chest pain Comment: - Trops negative. EKG unchanged. - CTA chest negative for PE. - Previous extensive cardiac workup, including a cardiac cath, was negative. - Suspect symptoms related to panic and anxiety. (2) Chronic pain Comment: - Resumed appropriate home oxycodone. (3) Diabetes Comment: - BGs well controlled. - BGs qAC with lispro SSI coverage. (4) Hypertension Comment: - BP elevated at times, ? if related to pain. - Continue furosemide and losartan. - Monitor and add additional agents if BP not controlled now that she is back on her home oxycodone. (5) Hypothyroidism Comment: - Continue Synthroid. (6) DVT prophylaxis Comment: - SQ Heparin (7) Full code status Status and Disposition: Convert to inpatient with need for additional night in the hospital. sample checker and Social Workers following closely. Patient will need either additional assistance at home or will need to perhaps go to assisted living.
[2017-02-18] MEDS: oxyCODONE TAB* 5 MG TAB PO PRN ×2 (16:52→21:39)
[2017-02-18] MEDS ORDERED: Dextrose 50% Syringe 50 ML* 25 GM/50 ML SYRINGE IV PUSH PRN (17:13)
[2017-02-18] MEDS: Enoxaparin(*) 40 MG/0.4 ML SYR SUBCUT SCH (21:38)
[2017-02-18] MEDS: Atorvastatin* 20 MG TAB PO SCH (21:38)
[2017-02-18] MEDS: Zolpidem TAB* 10 MG PO PRN (21:39)
[2017-02-19] MEDS: oxyCODONE TAB* 5 MG TAB PO PRN ×6 (02:39→23:14)
[2017-02-19] MEDS: Levothyroxine TAB* 75 MCG TAB PO SCH (06:35)
[2017-02-19] MEDS: Insulin LISPRO* 1 UNITS UNIT SUBCUT SCH ×3 (07:47→17:16)
[2017-02-19] MEDS: Furosemide TAB* 40 MG PO SCH (08:29)
[2017-02-19] MEDS: Losartan TAB* 25 MG PO SCH (08:29)
[2017-02-19] MEDS: LORazepam TAB(*) 0.5 MG PO SCH ×4 (08:29→20:37)
[2017-02-19] MEDS: Multivitamins/Minerals TAB PO SCH (08:29)
[2017-02-19] MEDS: Aspirin EC Low Dose* 81 MG TAB.EC PO SCH (08:29)
[2017-02-19] MEDS ORDERED: Venlafaxine EXT RELEASE CAP* 37.5 MG PO SCH (10:00)
[2017-02-19] MEDS ORDERED: Meclizine TAB* 12.5 MG PO PRN (15:03)
--- NOTE | 2017-02-19 15:05 | PN ---
Subjective Date of Service: 02/19/17 Interval History: Patient has continued anxiety about falling and states that she feels like the room is spinning when she lays down and has to open her eyes to make it stop. Patient has a head tremor which she finds moderately annoying. Patient has no other acute complaints. Patient interested in short term rehab to restore her strength before she goes home. Family History: Unchanged from Admission Social History: Unchanged from Admission Past Medical History: Unchanged from Admission Objective Active Medications: Acetaminophen (Tylenol Tab*) 650 mg PO Q4H PRN PRN Reason: FEVER/PAIN Last Admin: 02/18/17 04:15 Dose: 650 mg Aspirin (Aspirin Ec Low Dose*) 81 mg PO DAILY [facility] Last Admin: 02/19/17 08:29 Dose: 81 mg Atorvastatin Calcium (Lipitor*) 20 mg PO BEDTIME [facility] Last Admin: 02/18/17 21:38 Dose: 20 mg Dextrose (D50w Syringe 50 Ml*) 12.5 gm IV PUSH .FOR FS < 60 - SS PRN PRN Reason: FS < 60 Enoxaparin Sodium (Lovenox(*)) 40 mg SUBCUT Q24H [facility] Last Admin: 02/18/17 21:38 Dose: 40 mg Furosemide (Lasix Tab*) 40 mg PO DAILY [facility] Last Admin: 02/19/17 08:29 Dose: 40 mg Insulin Human Lispro (Humalog*) 0 units SUBCUT AC [facility] PRN Reason: Protocol Last Admin: 02/19/17 12:47 Dose: Not Given Levothyroxine Sodium (Synthroid Tab*) 75 mcg PO DAILY@0600 [facility] Last Admin: 02/19/17 06:35 Dose: 75 mcg Lorazepam (Ativan Tab(*)) 1 mg PO QID [facility] Last Admin: 02/19/17 13:48 Dose: 1 mg Losartan Potassium (Cozaar Tab*) 50 mg PO DAILY [facility] Last Admin: 02/19/17 08:29 Dose: 50 mg Multivitamins/Minerals (Theragran/Minerals Tab*) 1 tab PO DAILY [facility] Last Admin: 02/19/17 08:29 Dose: 1 tab Ondansetron HCl (Zofran Inj*) 4 mg IV Q4H PRN PRN Reason: NAUSEA/VOMITING Oxycodone HCl (Roxycodone Tab*) 15 mg PO Q4H PRN PRN Reason: PAIN Last Admin: 02/19/17 14:32 Dose: 15 mg Polyethylene Glycol/Electrolytes (Miralax*) 17 gm PO DAILY PRN PRN Reason: CONSTIPATION Venlafaxine HCl (Effexor Xr Cap*) 37.5 mg PO DAILY [facility] Last Admin: 02/19/17 10:31 Dose: 37.5 mg Zolpidem Tartrate (Ambien Tab*) 10 mg PO BEDTIME PRN PRN Reason: SLEEP Last Admin: 02/18/17 21:39 Dose: 10 mg Vital Signs 02/18/17 02/18/17 02/18/17 15:33 16:22 16:52 Temperature 98.1 F Pulse Rate 60 Respiratory 19 16 16 Rate Blood Pressure 174/88 (mmHg) O2 Sat by Pulse 96 Oximetry 02/18/17 02/18/17 02/18/17 16:54 17:33 18:52 Temperature Pulse Rate Respiratory 16 16 16 Rate Blood Pressure (mmHg) O2 Sat by Pulse Oximetry 02/18/17 02/18/17 02/18/17 18:54 20:00 20:03 Temperature 98.0 F Pulse Rate 61 Respiratory 16 16 16 Rate Blood Pressure 169/82 (mmHg) O2 Sat by Pulse 96 Oximetry 02/18/17 02/18/17 02/18/17 21:38 21:39 23:38 Temperature Pulse Rate Respiratory 18 18 16 Rate Blood Pressure (mmHg) O2 Sat by Pulse Oximetry 02/18/17 02/19/17 02/19/17 23:39 00:39 02:39 Temperature 98.6 F Pulse Rate 62 Respiratory 16 16 16 Rate Blood Pressure 144/73 (mmHg) O2 Sat by Pulse 97 Oximetry 02/19/17 02/19/17 02/19/17 04:34 06:35 07:21 Temperature 98.3 F 98.4 F Pulse Rate 61 60 Respiratory 16 16 20 Rate Blood Pressure 190/89 157/90 (mmHg) O2 Sat by Pulse 96 97 Oximetry 02/19/17 02/19/17 02/19/17 07:44 08:29 08:35 Temperature Pulse Rate Respiratory 16 16 16 Rate Blood Pressure (mmHg) O2 Sat by Pulse Oximetry 02/19/17 02/19/17 02/19/17 10:29 10:31 12:31 Temperature Pulse Rate Respiratory 16 16 16 Rate Blood Pressure (mmHg) O2 Sat by Pulse Oximetry 02/19/17 02/19/17 13:48 14:32 Temperature Pulse Rate Respiratory 16 16 Rate Blood Pressure (mmHg) O2 Sat by Pulse Oximetry Oxygen Devices in Use Now: None Appearance: Patient is a 62yo obese female who appears stated age and is sitting on the edge of the bed looking anxious with a noticable head tremor. Eyes: No Scleral Icterus, PERRLA Ears/Nose/Mouth/Throat: NL Teeth, Lips, Gums, Clear Oropharnyx, Mucous Membranes Moist Neck: NL Appearance and Movements; NL JVP Respiratory: Symmetrical Chest Expansion and Respiratory Effort, Clear to Auscultation Cardiovascular: NL Sounds; No Murmurs; No JVD, RRR, No Edema Abdominal: No Hepatosplenomegaly, - - Normal sounds, slight tenderness to light palpation. Moderately distended. Tympanic to percussion in all quadrants. Exam limited by body habitus. Lymphatic: No Cervical Adenopathy Extremities: No Edema, No Clubbing, Cyanosis Skin: No Rash or Ulcers, No Nodules or Sclerosis Neurological: Alert and Oriented x 3 - Head tremor at about 4Hz. No hand tremor. Tremor dose not decrease or increase with concentration. CN II-XII intact, no nystagmus or dizziness with EOM. Finger to nose completed without difficulty, heel to rush completed without difficulty. Gait normal, Romberg negative, no pronator drift, rapid alternating movements completed without difficulty. Strength 4-/5 in upper and lower extremities distally and proximally without focality or asymmetry., - Result Diagrams: 02/17/17 15:54 02/17/17 15:54 Assess/Plan/Problems-Billing Assessment: Ms. Barragan is a 62 yo female with a PMH of morbid obesity, chronic pain, hypertension, hyperlipidemia who was admitted on 02/17/17 with chest pain thought to be secondary to anxiety. - Patient Problems (1) Chronic pain Current Visit: No Status: Acute Code(s): G89.29 - OTHER CHRONIC PAIN SNOMED Code(s): 43821999 Comment: Resumed appropriate home oxycodone. Pain persists but improved. (2) Psychogenic tremor Current Visit: Yes Status: Acute Code(s): F44.4 - CONVERSION DISORDER WITH MOTOR SYMPTOM OR DEFICIT SNOMED Code(s): 011738211 Comment: Isolated head tremor with no neurological deficits that coincided with onset of severe anxiety about falling most consistent with psychogenic tremor. Will treat anxiety and consider outpatient neuro consult if unresolved. (3) Hypertension Current Visit: No Status: Acute Code(s): I10 - ESSENTIAL (PRIMARY) HYPERTENSION SNOMED Code(s): 80655973 Comment: BP elevated up to 190/89, staying consistently above 150 Continue furosemide and increase losartan to 100mg/day (4) Hypothyroidism Current Visit: No Status: Acute Code(s): E03.9 - HYPOTHYROIDISM, UNSPECIFIED SNOMED Code(s): 91262241 Comment: Continue Synthroid at home dose. (5) Irritable bowel syndrome (IBS) Current Visit: No Status: Acute Comment: Continue Dicyclomine. (6) Left shoulder pain Current Visit: No Status: Acute Code(s): M25.512 - PAIN IN LEFT SHOULDER SNOMED Code(s): 69118670 Comment: Continue home oxycodone. Add on venlafaxine for anxiety and pain control. (7) Anxiety Current Visit: Yes Status: Acute Code(s): F41.9 - ANXIETY DISORDER, UNSPECIFIED SNOMED Code(s): 49540957 Comment: Continue ativan scheduled. Begin Venlafaxine for anxiety and chronic pain. (8) Full code status Current Visit: No Status: Acute Code(s): Z78.9 - OTHER SPECIFIED HEALTH STATUS SNOMED Code(s): 913086622 (9) DVT prophylaxis Current Visit: No Status: Acute Code(s): OVK8132 - SNOMED Code(s): 333387159 Comment: - SQ Heparin (10) Diabetes Current Visit: No Status: Acute Code(s): E11.9 - TYPE 2 DIABETES MELLITUS WITHOUT COMPLICATIONS SNOMED Code(s): 05010639 Comment: BGs well controlled. BGs qAC with lispro SSI coverage. Status and Disposition: Convert to inpatient with need for additional night in the hospital. community organizer and Social Workers following closely. PT/OT consulted for possible STR placement. Patient is amenable to this and it may be difficult to set up VNS at home due to previous cancellations. Patient unwilling to move to [facility] at this time due to apartment and proximity to mother.
[2017-02-19] MEDS: Enoxaparin(*) 40 MG/0.4 ML SYR SUBCUT SCH (20:37)
[2017-02-19] MEDS: Atorvastatin* 20 MG TAB PO SCH (20:37)
[2017-02-19] MEDS: Zolpidem TAB* 10 MG PO PRN (20:37)
[2017-02-20] MEDS: oxyCODONE TAB* 5 MG TAB PO PRN ×5 (03:18→21:27)
[2017-02-20] MEDS: Levothyroxine TAB* 75 MCG TAB PO SCH (05:44)
[2017-02-20 06:55] LABS: Hematocrit 37 % (35-47); Hemoglobin 12.2 g/dl (12.0-16.0); Mean Corpuscular HGB Conc 33 g/dl (31-36); Mean Corpuscular Hemoglobin 30 pg (27-31); Mean Corpuscular Volume 90 fL (80-97); Mean Platelet Volume 9 um3 (7.4-10.4); Red Blood Count 4.12 10^6/ul (4.0-5.4); Red Cell Distribution Width 16 % (10.5-15)
[2017-02-20 07:09] LABS: BUN/Creatinine Ratio 23.6 (8-20); Calcium 8.9 mg/dL (8.6-10.3); EGFR African American 104.9 (>60); EGFR Non-African American 81.6 (>60); Potassium 4.2 mmol/L (3.5-5.0)
[2017-02-20] MEDS: Multivitamins/Minerals TAB PO SCH (08:12)
[2017-02-20] MEDS: Furosemide TAB* 40 MG PO SCH (08:12)
[2017-02-20] MEDS: Losartan TAB* 25 MG PO SCH (08:13)
[2017-02-20] MEDS: Aspirin EC Low Dose* 81 MG TAB.EC PO SCH (08:13)
[2017-02-20] MEDS: LORazepam TAB(*) 0.5 MG PO SCH ×4 (08:13→21:24)
[2017-02-20] MEDS: Insulin LISPRO* 1 UNITS UNIT SUBCUT SCH ×3 (08:52→18:02)
--- NOTE | 2017-02-20 16:37 | PN ---
Subjective Date of Service: 02/20/17 Interval History: No new c/o. Patient is focused on going to rehab to help with her L knee. She is satisfied with the pain control here and the psychotropic meds. Family History: Unchanged from Admission Social History: Unchanged from Admission Past Medical History: Unchanged from Admission Objective Active Medications: Acetaminophen (Tylenol Tab*) 650 mg PO Q4H PRN PRN Reason: FEVER/PAIN Last Admin: 02/18/17 04:15 Dose: 650 mg Aspirin (Aspirin Ec Low Dose*) 81 mg PO DAILY [facility] Last Admin: 02/20/17 08:13 Dose: 81 mg Atorvastatin Calcium (Lipitor*) 20 mg PO BEDTIME [facility] Last Admin: 02/19/17 20:37 Dose: 20 mg Dextrose (D50w Syringe 50 Ml*) 12.5 gm IV PUSH .FOR FS < 60 - SS PRN PRN Reason: FS < 60 Enoxaparin Sodium (Lovenox(*)) 40 mg SUBCUT Q24H [facility] Last Admin: 02/19/17 20:37 Dose: 40 mg Furosemide (Lasix Tab*) 40 mg PO DAILY [facility] Last Admin: 02/20/17 08:12 Dose: 40 mg Insulin Human Lispro (Humalog*) 0 units SUBCUT AC [facility] PRN Reason: Protocol Last Admin: 02/20/17 12:21 Dose: Not Given Levothyroxine Sodium (Synthroid Tab*) 75 mcg PO DAILY@0600 [facility] Last Admin: 02/20/17 05:44 Dose: 75 mcg Lorazepam (Ativan Tab(*)) 1 mg PO QID [facility] Last Admin: 02/20/17 12:36 Dose: 1 mg Losartan Potassium (Cozaar Tab*) 100 mg PO DAILY [facility] Last Admin: 02/20/17 08:13 Dose: 100 mg Meclizine HCl (Antivert Tab*) 12.5 mg PO Q8HR PRN PRN Reason: DIZZINESS Multivitamins/Minerals (Theragran/Minerals Tab*) 1 tab PO DAILY [facility] Last Admin: 02/20/17 08:12 Dose: 1 tab Ondansetron HCl (Zofran Inj*) 4 mg IV Q4H PRN PRN Reason: NAUSEA/VOMITING Last Admin: 02/19/17 17:32 Dose: 4 mg Oxycodone HCl (Roxycodone Tab*) 15 mg PO Q4H PRN PRN Reason: PAIN Last Admin: 02/20/17 12:36 Dose: 15 mg Polyethylene Glycol/Electrolytes (Miralax*) 17 gm PO DAILY PRN PRN Reason: CONSTIPATION Zolpidem Tartrate (Ambien Tab*) 10 mg PO BEDTIME PRN PRN Reason: SLEEP Last Admin: 02/19/17 20:37 Dose: 10 mg Vital Signs 02/19/17 02/19/17 02/19/17 16:32 17:24 18:50 Temperature Pulse Rate Respiratory 16 16 16 Rate Blood Pressure (mmHg) O2 Sat by Pulse Oximetry 02/19/17 02/19/17 02/19/17 19:24 20:00 20:31 Temperature 97.6 F Pulse Rate 70 Respiratory 18 18 18 Rate Blood Pressure 140/67 (mmHg) O2 Sat by Pulse 94 Oximetry 02/19/17 02/19/17 02/19/17 20:37 20:50 21:24 Temperature Pulse Rate Respiratory 18 18 18 Rate Blood Pressure (mmHg) O2 Sat by Pulse Oximetry 02/19/17 02/19/17 02/19/17 22:37 23:14 23:24 Temperature Pulse Rate Respiratory 18 18 18 Rate Blood Pressure (mmHg) O2 Sat by Pulse Oximetry 02/20/17 02/20/17 02/20/17 00:23 00:37 01:14 Temperature 97.7 F Pulse Rate 63 Respiratory 20 16 16 Rate Blood Pressure 127/57 (mmHg) O2 Sat by Pulse 95 Oximetry 02/20/17 02/20/17 02/20/17 03:18 03:24 05:18 Temperature 97.8 F Pulse Rate 64 Respiratory 16 16 16 Rate Blood Pressure 134/76 (mmHg) O2 Sat by Pulse 96 Oximetry 02/20/17 02/20/17 02/20/17 07:34 08:00 08:13 Temperature 98.6 F Pulse Rate 70 Respiratory 16 18 18 Rate Blood Pressure 145/81 (mmHg) O2 Sat by Pulse 95 Oximetry 02/20/17 02/20/17 02/20/17 10:13 12:02 12:36 Temperature 97.9 F Pulse Rate 63 Respiratory 20 20 18 Rate Blood Pressure 150/94 (mmHg) O2 Sat by Pulse 96 Oximetry Oxygen Devices in Use Now: None Appearance: Alert, sitting on the edge of her bed. In good spirits. Looks comfortable. Eyes: No Scleral Icterus Extremities: No Edema, No Clubbing, Cyanosis, - Skin: No Rash or Ulcers, No Nodules or Sclerosis, - Neurological: Alert and Oriented x 3, NL Sensation Result Diagrams: 02/20/17 06:23 02/20/17 06:23 Assess/Plan/Problems-Billing Assessment: Ms. Barragan is a 62 yo female with a PMH of morbid obesity, chronic pain, hypertension, hyperlipidemia who was admitted on 02/17/17 with chest pain thought to be secondary to anxiety. - Patient Problems (1) Chronic pain Current Visit: No Status: Acute Code(s): G89.29 - OTHER CHRONIC PAIN SNOMED Code(s): 07920817 Comment: Continue home oxycodone. Pt satisfied with pain control 02/20. (2) Tremor Current Visit: Yes Status: Acute Code(s): R25.1 - TREMOR, UNSPECIFIED SNOMED Code(s): 34371148 Comment: Benign tremor, not causing pt problems 02/20. (3) Hypertension Current Visit: No Status: Acute Code(s): I10 - ESSENTIAL (PRIMARY) HYPERTENSION SNOMED Code(s): 06222598 Comment: On increased dose of losartan, 100mg/day started 02/20. (4) Diabetes Current Visit: No Status: Acute Code(s): E11.9 - TYPE 2 DIABETES MELLITUS WITHOUT COMPLICATIONS SNOMED Code(s): 20279258 Comment: Resume metformin but at lower dose than at home. (5) Hypothyroidism Current Visit: No Status: Acute Code(s): E03.9 - HYPOTHYROIDISM, UNSPECIFIED SNOMED Code(s): 13921920 Comment: TS wnl 02/11/17. Continue Synthroid at home dose. Status and Disposition: Convert to inpatient with need for additional night in the hospital. wood machinist apprentice and Social Workers following closely. PT/OT consulted for possible STR placement. Patient is amenable to this and it may be difficult to set up VNS at home due to previous cancellations. Patient unwilling to move to [facility] at this time due to apartment and proximity to mother.
[2017-02-20] MEDS: metFORMIN* 500 MG TAB PO SCH (17:01)
[2017-02-20] MEDS: Atorvastatin* 20 MG TAB PO SCH (21:24)
[2017-02-20] MEDS: Enoxaparin(*) 40 MG/0.4 ML SYR SUBCUT SCH (21:29)
[2017-02-20] MEDS: Zolpidem TAB* 10 MG PO PRN (21:35)
[2017-02-21] MEDS: oxyCODONE TAB* 5 MG TAB PO PRN ×4 (02:28→14:52)
[2017-02-21] MEDS: Levothyroxine TAB* 75 MCG TAB PO SCH (06:04)
[2017-02-21] MEDS: Losartan TAB* 25 MG PO SCH (08:16)
[2017-02-21] MEDS: Aspirin EC Low Dose* 81 MG TAB.EC PO SCH (08:16)
[2017-02-21] MEDS: Multivitamins/Minerals TAB PO SCH (08:16)
[2017-02-21] MEDS: LORazepam TAB(*) 0.5 MG PO SCH ×2 (08:16→12:40)
[2017-02-21] MEDS: metFORMIN* 500 MG TAB PO SCH (08:16)
[2017-02-21] MEDS: Furosemide TAB* 40 MG PO SCH (08:16)
--- NOTE | 2017-02-21 11:44 | DS ---
DISCHARGE SUMMARY: DATE OF ADMISSION: 02/17/17 DATE OF DISCHARGE: 02/21/17 ADMITTING PROVIDER: MODESTO Verde ATTENDING PHYSICIANS: Felipe Loredo MD and Junior Escobar MD PRIMARY CARE PHYSICIAN: Dr. Olga Cavanaugh. CHIEF COMPLAINT: Chest pain; anxiety. PRINCIPAL DIAGNOSES: Anxiety; acute coronary syndrome ruled out; tremors with recent falls. HISTORY OF PRESENT ILLNESS AND HOSPITAL COURSE: Miriam Barragan is a 62-year-old female with past medical history of chronic pain, anxiety, non-insulin- dependent diabetes, history of prior DVT associated with surgery, obesity, hypertension, hyperlipidemia, hypothyroidism, presented to emergency department with chest pain, tremulousness, severe anxiety, pain in left arm, shortness of breath. She had recently been admitted with similar symptoms a week prior associated with syncopal events, also admitted in September with similar symptoms and underwent nuclear stress test at that time. The patient was admitted for ACS rule out, troponins were negative at 0.01, 0.01, 0.01. EKG demonstrated atrial paced rhythm with T-wave inversions in V2 to V6, flat T-waves in V1, also lead I and aVL. These were unchanged from EKG on 02/11/17. Of note, the patient recently had a stress test in September 2016, which showed moderate to large area of ischemia with moderate risk similar appearing to the stress test in 2015 and had cardiac catheterization at [facility], which showed no occlusive disease and may have been evaluated by Dr. lAex. He thought that the stress test was likely a false positive test and that the infarct was likely fixed and consistent with artifact. She had additional echocardiogram with prior admission was essentially normal with some mild diastolic dysfunction, no significant valvular disease, no wall motion abnormalities. She, throughout her hospitalization attested to significant levels of anxiety since her passed a few years ago. She lives alone and since her syncopal event with prior admission has had increased amounts of anxiety about similar symptoms happening again. The patient was evaluated by Physical Therapy and plan is for discharge to [facility] for acute rehabilitation. Followup scheduled with her primary care provider on 02/25/17 lOga Cavanaugh at 9 a.m. HOME MEDICATIONS: Include: 1. Aspirin 81 mg p.o. daily. 2. Lasix 40 mg p.o. daily. 3. Metformin 1000 mg p.o. b.i.d. 4. Vitamin D 2000 units p.o. daily. 5. Irbesartan 300 mg p.o. daily. 6. Ativan 1 mg p.o. 4 times daily p.r.n. 7. Levothyroxine 75 mcg p.o. daily. 8. Multivitamin 1 tab p.o. daily. 9. MiraLAX 17 g p.o. daily. 10. Simvastatin 40 mg p.o. q.h.s. 11. Ambien 10 mg p.o. q.h.s. for sleep. 12. Oxycodone 15 mg p.o. q.4 hours p.r.n. DISCHARGE DIET: Heart healthy, cardiac, carbohydrate consistent. DISPOSITION: [facility]. FOLLOWUP: Follow up with Olga Cavanaugh, 02/25/17 at 9 a.m. TIME SPENT: Time spent on discharge 35 minutes. [id number] #: [id number] MTDD
[2017-02-21 12:27] VITALS: BP 150/59
== END 2017-02-21 14:53 | DRG 880 ==
LOC: ED 15:03 → MEDTELE 20:12 → OBSVTOIN 02-19 15:56
PROVIDERS: ADMIT Hospitalist; ATTEND Internal Medicine
DX: F41.9 Anxiety disorder, unspecified (principal); Z68.41 Body mass index [BMI] 40.0-44.9, adult; I10 Essential (primary) hypertension; G89.29 Other chronic pain; R25.1 Tremor, unspecified; E11.9 Type 2 diabetes mellitus without complications; E66.01 Morbid (severe) obesity due to excess calories; E78.5 Hyperlipidemia, unspecified; E03.9 Hypothyroidism, unspecified; R07.89 Other chest pain; Z96.659 Presence of unspecified artificial knee joint; Z95.0 Presence of cardiac pacemaker; Z79.82 Long term (current) use of aspirin; Z79.891 Long term (current) use of opiate analgesic; Z79.899 Other long term (current) drug therapy; Z79.84 Long term (current) use of oral hypoglycemic drugs
CPT/HCPCS: 36415; 71010; 71275; 80048; 80053; 82550; 83605; 84484; 85025; 85379; 87040; 93005; A9270-GY; G0378; G8978-GP-CH; G8979-GP-CH; G8980-GP-CH; G8987-GO-CJ; G8988-GO-CI; J1650; J2060; J2405; Q9967

== ENCOUNTER 2017-04-09 00:56 | Emergency (ER) | payer MEDICARE, MEDICAID ==
[2017-04-09] MEDS ORDERED: Ondansetron INJ* 2 MG/ML VIAL IV ONE (01:12)
[2017-04-09] MEDS ORDERED: Morphine INJ* 4 MG/ML 1 ML CARPUJECT IV ONE (01:12)
[2017-04-09] MEDS ORDERED: NS 0.9% 1000 ML* 1,000 ML IV SCH (01:15)
[2017-04-09 01:42] LABS: Hematocrit 34 % (35-47); Hemoglobin 11.1 g/dl (12.0-16.0); Mean Corpuscular HGB Conc 33 g/dl (31-36); Mean Corpuscular Hemoglobin 29 pg (27-31); Mean Corpuscular Volume 89 fL (80-97); Mean Platelet Volume 8 um3 (7.4-10.4); Red Blood Count 3.85 10^6/ul (4.0-5.4); Red Cell Distribution Width 17 % (10.5-15); White Blood Count 6.7 10^3/ul (3.5-10.8)
[2017-04-09 02:00] LABS: Albumin 3.5 g/dL (3.2-5.2); BUN/Creatinine Ratio 14.8 (8-20); Calcium 9.1 mg/dL (8.6-10.3); EGFR Non-African American 98.7 (>60); Globulin 3.3 g/dL (2-4); Total Bilirubin 0.4 mg/dL (0.2-1.0); Total Protein 6.8 g/dL (6.4-8.9)
[2017-04-09] MEDS ORDERED: oxyCODONE TAB* 5 MG TAB PO ONE (03:47)
--- NOTE | 2017-04-09 04:46 | ED ---
Shaneka Perez Alfonso, scribed for Jassi Tavares MD on 04/09/17 at 0121 . Adult Trauma - HPI Summary HPI Summary: This patient is a 62 year old F [facility] s/p a fall earlier today. She reports feeling fine throughout the day and that she just landed on the floor walking to get food approximately 1 hour ago. The patient rates the pain 9/10 in severity. Symptoms aggravated and alleviated by nothing. Patient reports right hip pain, mid back pain, neck pain, and RLE tingling. Patient denies LOC. - History of Current Complaint Chief Complaint: EDHipPelvisInjury Stated Complaint: FALL Hx Obtained From: Patient Mechanism of Injury: Fall Loss of Consciousness: no loss of consciousness Onset/Duration: Started Hours Ago - 1, Still Present Onset of Pain: Post Accident Current Severity: Severe Pain Intensity: 9 Pain Scale Used: 0-10 Numeric Aggravating Factor(s): Nothing Alleviating Factor(s): Nothing Associated Signs & Symptoms: Positive: Other: - right hip pain, mid back pain, neck pain, and RLE tingling. Patient denies LOC. - Additional Pertinent History Primary Care Physician: [id number] - Allergy/Home Medications Allergies/Adverse Reactions: Allergies Allergy/AdvReac Type Severity Reaction Status Date / Time Metoprolol [From Lopressor] Allergy Intermediate Tachycardia Verified 04/09/17 01:29 Penicillins Allergy Intermediate Rash Verified 04/09/17 01:29 Cefazolin [From Ancef] Allergy Unknown Unknown Verified 04/09/17 01:29 Reaction Details Sulfa Drugs Allergy Unknown Unknown Verified 04/09/17 01:29 Reaction Details Propofol Allergy SCREAMING Verified 04/09/17 01:29 AND THRASHING Naproxen AdvReac Intermediate upset Verified 04/09/17 01:29 stomach, vomiting Citalopram [From Celexa] AdvReac Mild Insomnia Verified 04/09/17 01:29 Tartrazine [From Sonata] AdvReac Mild Insomnia Verified 04/09/17 01:29 Zaleplon [From Sonata] AdvReac Mild Insomnia Verified 04/09/17 01:29 NSAIDs AdvReac Ulcers, GI Verified 04/09/17 01:29 upset PMH/Surg Hx/FS Hx/Imm Hx Endocrine/Hematology History: Reports: Hx Blood Transfusions, Hx Diabetes - NIDDM, Hx Thyroid Disease Denies: Hx Anticoagulant Therapy, Hx Blood Disorders, Hx Bone Marrow Disease , Hx Systemic Lupus Erythematosus, Hx Sickle Cell Disease, Hx Anemia, Hx Unexplained Bleeding Cardiovascular History: Reports: Hx Auto Implanted Cardiovert Defib, Hx Cardiomegaly - SINCE IN HER TEENS, Hx Congestive Heart Failure, Hx Deep Vein Thrombosis - right leg after surgery, Hx Hypercholesterolemia, Hx Hypertension - W/MEDS, Hx Pacemaker/ICD, Other Cardiovascular Problems/Disorders - BRADYCARDIA due to hypothyroidism; pacer not in use Denies: Hx Angina, Hx Coronary Artery Disease, Hx Myocardial Infarction, Hx Valvular Heart Disease Respiratory History: Reports: Other Respiratory Problems/Disorders - sob associated - inspiratory pain left ribs, abdominal distention per pt Denies: Hx Asthma, Hx Chronic Obstructive Pulmonary Disease (COPD) GI History: Reports: Hx Gastroesophageal Reflux Disease, Hx Irritable Bowel, Other GI Disorders - ABDOMEN DISTENDED Denies: Hx Cirrhosis, Hx Ulcer History: Denies: Hx Dialysis, Hx Renal Disease Musculoskeletal History: Reports: Hx Back Problems - back surgery x 3, Hx Orthopedic Injury, Other Musculoskeletal History - knee, hip surgery hx Denies: Hx Bursitis, Hx Congenital Bone Abnormalities, Hx Fibromyalgia, Hx Gout, Hx Osteoporosis, Hx Scoliosis, Hx Tendonitis Sensory History: Reports: Hx Contacts or Glasses Denies: Hx Cataracts, Hx Eye Injury, Hx Eye Prosthesis, Hx Glaucoma, Hx Macular Degeneration, Hx Vision Problem, Hx Deafness, Hx Hearing Aid, Hx Hearing Problem, Other Sensory Impairments Opthamlomology History: Reports: Hx Contacts or Glasses Denies: Hx Cataracts, Hx Eye Injury, Hx Eye Prosthesis, Hx Glaucoma, Hx Macular Degeneration, Hx Vision Problem, Other Sensory Impairments Neurological History: Denies: Hx Dementia, Hx Developmental Delay, Hx Headaches, Hx Migraine, Hx Seizures, Hx Spinal Cord Injury, Hx Transient Ischemic Attacks (TIA), Other Neuro Impairments/Disorders - LOC WITH FALLL Psychiatric History: Reports: Hx Anxiety Denies: Hx Attention Deficit Hyperactivity Disorder, Hx Eating Disorder, Hx Depression, Hx Panic Disorder, Hx Post Traumatic Stress Disorder, Hx Inpatient Treatment, Hx Schizophrenia, Hx Bipolar Disorder, Hx Suicide Attempt, Hx Substance Abuse, Other Psychiatric Issues/Disorders - Cancer History Cancer Type, Location and Year: skin cancer on right leg, removed Hx Chemotherapy: No Hx Radiation Therapy: No - Surgical History Surgery Procedure, Year, and Place: left shoulder surgery Jul 08 2013 csections x 3. partial hysterectomy. 3 back surgeries. right hip REPLACEMENT. LEFT KNEE RECONSTRUCTION. PACEMAKER [id number]. 3 C- SECTIONS. RIGHT SHOULDER ROTATOR CUFF REPAIR - 15 YEARS AGO. UMBILICAL HERNIA REPAIR Hx Anesthesia Reactions: Yes - PROPOFOL REACTION- THRASHING AND SCREAMING Infectious Disease History: Yes Infectious Disease History: Reports: Hx Clostridium Difficile, Hx of Known/ Suspected MRSA Denies: Hx Hepatitis, Hx Human Immunodeficiency Virus (HIV), Hx Shingles, Hx Tuberculosis, Traveled Outside the [place] in Last 30 Days - Family History Known Family History: Positive: Cardiac Disease - CAD, Diabetes, Other - Breast CA - Social History Alcohol Use: None Hx Substance Use: No Substance Use Type: Reports: None Hx Tobacco Use: No Smoking Status (MU): Never Smoked Tobacco Review of Systems Negative: Fever Positive: Other - fall, right hip pain, mid back pain, neck pain Neurological: Other - RLE tingling; negative LOC All Other Systems Reviewed And Are Negative: Yes Physical Exam - Summary Physical Exam Summary: General: well-appearing, mild pain distress Skin: warm, color reflects adequate perfusion, dry Head: normal Eyes: EOMI, LOLI ENT: normal Neck: supple, nontender Respiratory: CTA, breath sounds present Cardiovascular: RRR Abdomen: soft, nontender Bowel: present Musculoskeletal: Neck, chest, and right hip tenderness Neurological: normal, sensory/motor intact, A&O x3 Psychological: affect/mood appropriate Triage Information Reviewed: Yes Vital Signs On Initial Exam: Initial Vitals Temp Pulse Resp BP Pulse Ox 97.5 F 67 16 154/71 98 04/09/17 01:00 04/09/17 01:00 04/09/17 01:00 04/09/17 01:00 04/09/17 01:00 Vital Signs Reviewed: Yes - Elle Coma Scale Best Eye Response: 4 - Spontaneous Best Motor Response: 6 - Obeys Commands Best Verbal Response: 5 - Oriented Diagnostics - Vital Signs Vital Signs Temp Pulse Resp BP Pulse Ox 04/09/17 01:00 97.5 F 67 16 154/71 98 - Laboratory Lab Results: Lab Results 04/09/17 04/09/17 04/09/17 Range/Units 01:33 01:33 01:33 WBC 6.7 (3.5-10.8) 10^3/ul RBC 3.85 L (4.0-5.4) 10^6/ul Hgb 11.1 L (12.0-16.0) g/dl Hct 34 L (35-47) % MCV 89 (80-97) fL MCH 29 (27-31) pg MCHC 33 (31-36) g/dl RDW 17 H (10.5-15) % Plt Count 262 (150-450) 10^3/ul MPV 8 (7.4-10.4) um3 Neut % (Auto) 65.4 (38-83) % Lymph % (Auto) 25.8 (25-47) % Citrus % (Auto) 6.8 (1-9) % Eos % (Auto) 1.1 (0-6) % Baso % (Auto) 0.9 (0-2) % Absolute Neuts (auto) 4.4 (1.5-7.7) 10^3/ul Absolute Lymphs (auto) 1.7 (1.0-4.8) 10^3/ul Absolute Monos (auto) 0.5 (0-0.8) 10^3/ul Absolute Eos (auto) 0.1 (0-0.6) 10^3/ul Absolute Basos (auto) 0.1 (0-0.2) 10^3/ul Absolute Nucleated RBC 0.01 10^3/ul Nucleated RBC % 0.2 INR (Anticoag Therapy) 0.93 (0.89-1.11) APTT 28.7 (26.0-36.3) seconds Sodium 139 (133-145) mmol/L Potassium 4.0 (3.5-5.0) mmol/L Chloride 101 (101-111) mmol/L Carbon Dioxide 33 H (22-32) mmol/L Anion Gap 5 (2-11) mmol/L BUN 9 (6-24) mg/dL Creatinine 0.61 (0.51-0.95) mg/dL Est GFR ( Amer) 127.0 (>60) Est GFR (Non-Af Amer) 98.7 (>60) BUN/Creatinine Ratio 14.8 (8-20) Glucose 136 H (70-100) mg/dL Calcium 9.1 (8.6-10.3) mg/dL Total Bilirubin 0.40 (0.2-1.0) mg/dL AST 52 H (13-39) U/L ALT 42 (7-52) U/L Alkaline Phosphatase 90 (34-104) U/L Total Protein 6.8 (6.4-8.9) g/dL Albumin 3.5 (3.2-5.2) g/dL Globulin 3.3 (2-4) g/dL Albumin/Globulin Ratio 1.1 (1-3) Result Diagrams: 04/09/17 01:33 04/09/17 01:33 Lab Statement: Any lab studies that have been ordered have been reviewed, and results considered in the medical decision making process. - CT Head CT Interpretation Completed By: Radiologist - No interval change and no evidence of acute pathology. ED physician has reviewed this radiology report and agrees. Neck CT Interpretation Completed By: Radiologist - No Fracture. ED physician has reviewed this radiology report and agrees. L-Spine CT Interpretation Completed By: Radiologist - No fracture. Mild bilateral neural foraminal narrowing at L3-4 and moderate bilateral neural foraminal narrowing at L5/S1 as described above. ED physician has reviewed this radiology report and agrees. Chest/Abdomen/Pelvis CT Interpretation Completed By: Radiologist - Probable pulmonary arterial hypertension. No evidence of acute traumatic pathology in the chest, abdomen or pelvis. ED physician has reviewed this radiology report and agrees. T-Spine CT Interpretation Completed By: Radiologist - No evidence of acute traumatic pathology of the thoracic spine. Moderate central canal narrowing at T11-12 secondary to a bulging disc osteophyte complex and hypertrophy of the ligamentum flavum. ED physician has reviewed this radiology report and agrees. Adult Trauma Course/Dx - Course Course Of Treatment: DISCUSSED RESULTS WITH PATIENT. SHE WAS ABLE TO AMBULATE IN ED. F/U PMD; RETURN IF WORSE. - Diagnoses Provider Diagnoses: Right hip pain, Lumbar back pain, Thoracic back pain, Neck pain, Fall Discharge - Discharge Plan Condition: Stable Disposition: HOME Patient Education Materials: Back Pain (ED), Hip Pain (ED), Neck Pain (ED) Referrals: Olga Cavanaugh MD [Primary Care Provider] - Additional Instructions: FOLLOW UP WITH YOUR DOCTOR. RETURN TO THE EMERGENCY DEPARTMENT FOR ANY WORSENING OF YOUR CONDITION OR QUESTIONS OR CONCERNS. The documentation as recorded by the Shaneka espino Alfonso accurately reflects the service I personally performed and the decisions made by me, Jassi Tavares MD.
[2017-04-09 05:18] VITALS: BP 120/51
--- NOTE | 2017-04-09 07:45 | RAD ---
INDICATION: Intracranial injury COMPARISON: CT brain February 11, 2017 TECHNIQUE: Noncontrast axial source images were acquired from the skull base to the vertex. FINDINGS: Ventricles/sulci: The ventricles and cisterns are normal in size and configuration for age. Brain parenchyma: There is no focal parenchymal finding, evidence of intracranial mass, or intracranial mass effect. Intracranial hemorrhage:None. Extra-axial spaces: There are no abnormal extra axial fluid collections or evidence of extra-axial mass. Calvarium: There is no calvarial fracture or other calvarial abnormality. Scalp: There is no evidence of scalp or extracalvarial soft tissue abnormality. Paranasal sinuses/mastoid: There is left posterior ethmoid and sphenoid sinus disease without associated air-fluid level, unchanged. Other: None. IMPRESSION: No acute intracranial findings. Left sphenoethmoid sinusitis
--- NOTE | 2017-04-09 07:53 | RAD ---
INDICATION: Fall. Possible neck injury. CT of the cervical spine, lumbar spine, thoracic spine and chest abdomen pelvis for hip, neck, and back pain COMPARISON: CT cervical spine February 11, 2017 TECHNIQUE: Noncontrast axial source images was performed from the skull base to the thoracic inlet. Coronal and and sagittal reformatted images were generated. FINDINGS: Vertebrae: There is no fracture or acute focal bony lesion. There is moderate multilevel degenerative change with vertebral spurring, facet arthropathy, uncinate process spurring, and posterior spondylitic ridge formation from C3 through C7. There is multilevel foraminal narrowing. There is no significant canal stenosis. There is no interval change from recent imaging. Alignment: The craniocervical junction appears normal. The cervical vertebrae are normally aligned. Central Canal: There are no significant CT abnormalities of the central canal. Mild multilevel foraminal narrowing. MR imaging is a more sensitive method to evaluate the canal and foramina. Intervertebral disc spaces: The disc spaces are maintained. Brain: The visualized brain appears unremarkable. Soft tissues: The visualized soft tissue elements of the neck are unremarkable. The prevertebral soft tissues appear normal. The lung apices are clear. IMPRESSION: MULTIPLE OSTEOARTHRITIC CHANGE. NO ACUTE FINDINGS.
--- NOTE | 2017-04-09 07:56 | RAD ---
HISTORY: Neck pain, back pain, right hip pain, status post fall COMPARISONS: None TECHNIQUE: Multiple contiguous axial CT scans were obtained of the chest, abdomen, and pelvis, without intravenous contrast enhancement. Coronal and sagittal multiplanar reformations are submitted for review.. Oral contrast was not administered. FINDINGS: The study is limited by the lack of intravenous contrast. This limits evaluation of the solid organs and vasculature. Additionally, this precludes evaluation for active arterial extravasation CHEST NECK AND THYROID: The lower neck and thyroid are unremarkable. CHEST WALL: There is no lower cervical, axillary, or supraclavicular lymphadenopathy by size criteria. A left-sided pacemaker is noted HEART AND PERICARDIUM: The heart is unremarkable. AORTA AND PULMONARY VASCULATURE: The pulmonary artery is enlarged measuring 5 cm transversely, larger than on the aorta at the same level. The aorta is unremarkable for technique. MEDIASTINUM: There is no mediastinal lymphadenopathy by size criteria. ELVIRA: There is no hilar lymphadenopathy by size criteria. AIRWAY AND ESOPHAGUS: The airway is unremarkable, without endobronchial filling defect. The esophagus is grossly normal. LUNG PARENCHYMA: The lungs are clear. PLEURA: No pleural abnormalities are noted. BONES AND SOFT TISSUES: Degenerative changes are noted of the spine. There is postsurgical change to the right shoulder ABDOMEN/PELVIS: LIVER: The liver is normal in shape, size, contour, and attenuation. BILE DUCTS: There is no intrahepatic or extrahepatic biliary dilatation. GALLBLADDER: The gallbladder is normal, without pericholecystic inflammatory change. PANCREAS: The pancreas is normal, without mass or ductal dilatation. SPLEEN: Normal in size and appearance. UPPER GI TRACT: Evaluation of the gastrointestinal tract is limited by incomplete gastric distention. The upper GI tract is unremarkable. SMALL BOWEL & MESENTERY: The small bowel is normal in contour, course, and caliber. There is no obstruction or dilatation. COLON: The colon is normal in contour, course, caliber. There is no pericolonic inflammatory change. ADRENALS: Normal bilaterally. KIDNEYS: The kidneys are normal in shape, size, contour, and axis. There is no hydronephrosis or nephrolithiasis. BLADDER: The bladder is smooth in contour. PELVIC ORGANS: The pelvic organs are not visualized. AORTA: The aorta is normal. IVC: Unremarkable LYMPH NODES: There is no lymphadenopathy by size criteria. ABDOMINAL WALL: There is no evidence for abdominal wall hernia. BONES AND SOFT TISSUES: The patient is status post multilevel laminectomy and spinal fusion. The patient is status post right hip arthroplasty. OTHER: None IMPRESSION: 1. ENLARGEMENT OF THE PULMONARY ARTERY CONSISTENT WITH PULMONARY ARTERIAL HYPERTENSION. 2. POSTSURGICAL CHANGE. 3. NO ACUTE CT PATHOLOGY OF THE VISUALIZED CHEST, ABDOMEN, OR PELVIS.
--- NOTE | 2017-04-09 08:00 | RAD ---
HISTORY: Pain, status post fall COMPARISONS: August 24, 2015 TECHNIQUE: Multiple contiguous axial CT scans were obtained of the lumbar spine without intravenous contrast, with coronal and sagittal multiplanar reformations. FINDINGS: SPINAL CANAL: Evaluation of the central canal is limited on CT technique; however, there is no obvious canalicular mass or epidural hemorrhage. ALIGNMENT: There is grade 3 anterolisthesis of L5 on S1. VERTEBRAL BODIES: There is diffuse osteopenia. There is multilevel anterolateral marginal osteophyte formation. The patient is status post multilevel laminectomy and spinal fusion. Pedicle screws noted at T11, T12, L3, and S1. There is a screw fragment noted on the left at L4. There are laminectomy defects and rods at L1-L2. There are sclerotic active endplate changes along the lower thoracic spine. There is no displaced fracture. JOINTS: There is fusion across the facet joints of the lumbar spine and lower thoracic spine. MUSCULATURE: There is moderate atrophy of the lateral decubitus and erector spinae INTERVERTEBRAL DISCS: There is diffuse loss of intervertebral disc height throughout the spine. AXIAL IMAGES: On axial images, there is neural foraminal narrowing at L3-L4 and L5-S1. There is no osseous central canal stenosis SOFT TISSUES: The visualized soft tissues of the abdomen are unremarkable. OTHER: None IMPRESSION: 1. STATUS POST MULTILEVEL SPINAL FUSION AND LAMINECTOMY. 2. THERE IS NEURAL FORAMINAL NARROWING DESCRIBED ABOVE. THERE IS NO OSSEOUS CENTRAL CANAL STENOSIS.
--- NOTE | 2017-04-09 08:10 | RAD ---
HISTORY: Pain, status post fall COMPARISONS: CT chest dated January 26 October 12, 2016 TECHNIQUE: Multiple contiguous axial CT scans were obtained of the thoracic spine without intravenous contrast, with coronal and sagittal multiplanar reformations. FINDINGS: SPINAL CANAL: Evaluation of the central canal is limited on CT technique; however, there is no obvious canalicular mass or epidural hemorrhage. ALIGNMENT: There is straightening of the thoracic kyphosis. VERTEBRAL BODIES: There is multilevel anterolateral marginal osteophyte formation. This radiographic evidence for changes along the lower thoracic spine. There is no displaced fracture. There are pedicle screws noted at T11 and T12. JOINTS: There is osteoarthritis of the costovertebral articulations. MUSCULATURE: There is mild atrophy of the multifidus and erector spinae. INTERVERTEBRAL DISCS: There is diffuse loss of intervertebral disc height throughout the spine. AXIAL IMAGES: There is moderate narrowing of the central canal at T11-T12 secondary to broad-based disc bulge and ligamentous hypertrophy. SOFT TISSUES: Again noted is enlargement of the pulmonary artery. OTHER: None IMPRESSION: 1. STATUS POST SPINAL FUSION. 2. DEGENERATIVE DISC DISEASE AND OSTEOARTHRITIS. 3. THERE IS MODERATE NARROWING OF CENTRAL CANAL AT T11-T12. 4. NO ACUTE OSSEOUS INJURY TO THE THORACIC
== END 2017-04-09 05:05 | disposition home or self-care (01) ==
LOC: ED 00:56
DX: M25.551 Pain in right hip (principal); M54.5 Low back pain; M54.2 Cervicalgia; Z91.81 History of falling
CPT/HCPCS: 36415; 70450; 71250; 72125; 72128; 72131; 74176; 80053; 85025; 85610; 85730; 96374; 96375; 99283; A9270-GY; J2270; J2405

== ENCOUNTER 2017-04-23 14:41 | Inpatient (IN) | payer MEDICARE, MEDICAID ==
[2017-04-23] MEDS ORDERED: NS 0.9% 1000 ML* 1,000 ML IV ONE ×2 (14:55→16:16)
[2017-04-23] MEDS ORDERED: Ondansetron INJ* 2 MG/ML VIAL IV ONE (15:01)
[2017-04-23] MEDS ORDERED: HYDROmorphone INJ* 1 MG/ML CARPUJECT SYRINGE IV SLOW PU ONE ×2 (15:01→16:32)
[2017-04-23 15:37] LABS: Hematocrit 38 % (35-47); Hemoglobin 12.3 g/dl (12.0-16.0); Mean Corpuscular HGB Conc 33 g/dl (31-36); Mean Corpuscular Hemoglobin 29 pg (27-31); Mean Corpuscular Volume 89 fL (80-97); Mean Platelet Volume 8 um3 (7.4-10.4); Red Blood Count 4.27 10^6/ul (4.0-5.4); Red Cell Distribution Width 18 % (10.5-15); White Blood Count 7.4 10^3/ul (3.5-10.8)
[2017-04-23 15:53] LABS: Albumin 3.9 g/dL (3.2-5.2); BUN/Creatinine Ratio 14.9 (8-20); Calcium 9.3 mg/dL (8.6-10.3); EGFR Non-African American 88.6 (>60); Globulin 3.4 g/dL (2-4); Magnesium 1.4 mg/dL (1.9-2.7); Potassium 3.8 mmol/L (3.5-5.0); Total Bilirubin 0.7 mg/dL (0.2-1.0); Total Protein 7.3 g/dL (6.4-8.9)
[2017-04-23 15:57] LABS: Troponin I 0.12 ng/mL (<0.04)
[2017-04-23 15:58] LABS: Urine Bilirubin Negative (Negative); Urine Glucose Negative (Negative); Urine Nitrite Negative (Negative)
[2017-04-23 16:28] LABS: TSH (Thyroid Stimulating Horm) 0.01 mcIU/mL (0.34-5.60)
[2017-04-23] MEDS ORDERED: Aspirin TAB* 325 MG PO ONE (16:35)
--- NOTE | 2017-04-23 16:42 | RAD ---
INDICATION: Fall. Pain. COMPARISON: February 17, 2017 TECHNIQUE: An AP supine view is submitted. FINDINGS: Bones/Soft Tissues: There are no acute bony findings. There is left-sided cardiac pacemaker Cardiomediastinal: The cardiomediastinal silhouette is enlarged, unchanged. Lungs: There are no infiltrates. Pleura: There are no pleural effusions. Other: None IMPRESSION: NO ACTIVE DISEASE.
--- NOTE | 2017-04-23 16:43 | RAD ---
INDICATION: Right hip pain. Fall. COMPARISON: Right hip March 19, 2017 TECHNIQUE: An AP view of the pelvis and AP and cross table lateral views of the hip were obtained FINDINGS: There is right hip arthroplasty. The prosthesis appears normally seated. The left hip articulates normally. There is no acute pelvic fracture. The SI joints and symphysis are intact. There is prior lumbar fusion. IMPRESSION: NO ACUTE FINDINGS. NO EVIDENCE OF HARDWARE FAILURE.
--- NOTE | 2017-04-23 16:45 | RAD ---
INDICATION: Fall. Intracranial injury. COMPARISON: CT brain April 09, 2017 TECHNIQUE: Noncontrast axial source images were acquired from the skull base to the vertex. FINDINGS: Ventricles/sulci: The ventricles and cisterns are normal in size and configuration for age. Brain parenchyma: There is no focal parenchymal finding, evidence of intracranial mass, or intracranial mass effect. Intracranial hemorrhage:None. Extra-axial spaces: There are no abnormal extra axial fluid collections or evidence of extra-axial mass. Calvarium: There is no calvarial fracture or other calvarial abnormality. Scalp: There is no evidence of scalp or extracalvarial soft tissue abnormality. Paranasal sinuses/mastoid: There is left sphenoethmoid sinus disease. Other: None. IMPRESSION: No acute intracranial findings
--- NOTE | 2017-04-23 16:46 | RAD ---
INDICATION: Fall. Leg pain. COMPARISON: Right hip March 19, 2017 TECHNIQUE: AP and lateral views were obtained. FINDINGS: There is no acute femoral fracture. The right hip prosthesis appears normally seated. IMPRESSION: NO ACUTE FEMORAL FRACTURE.
--- NOTE | 2017-04-23 16:47 | RAD ---
INDICATION: Right knee pain. Fall. COMPARISON: None TECHNIQUE: AP and lateral views were obtained. FINDINGS: There is no acute bony change. There is moderate medial and lateral joint space osteophytes. There is minor patellofemoral osteoarthritis. There is no significant effusion. IMPRESSION: MODERATE OSTEOARTHRITIS. NO ACUTE FINDINGS.
[2017-04-23] MEDS ORDERED: oxyCODONE/Acetamin 5/325 MG* TAB PO PRN (17:17)
--- NOTE | 2017-04-23 17:19 | ED ---
Chip Perez Nilda, scribed for Kianna Conroy MD on 04/23/17 at 1519 . Syncope/Near Syncope - HPI Summary HPI Summary: This patient is a 62 year old F BIBA to [facility] with a chief complaint of syncopal episode that occurred this morning. Pt states she felt dizzy and saw stars before the episode. She states she woke up a few hours later on the floor , was non-ambulatory, and had hit her head. Pt rates the pain 8/10 in severity. Symptoms aggravated by nothing and alleviated by spontaneous resolution. Patient reports headache, severe right thigh pain, right knee pain, and right hip pain. PMHx includes chronic lower back pain and hip pain. PSHx includes right hip replacement and left knee surgery. - History Of Current Complaint Time Seen by Provider: 04/23/17 14:53 Hx Obtained From: Patient Onset/Duration: Sudden Onset, Resolved Timing: Hours Context: Unwitnessed Activity At Onset: At Rest Associated Head Trauma: Yes Aggravating Factor(s): Nothing Alleviating Factor(s): Spontaneous Resolution Associated Signs And Symptoms: Other - headache, severe right thigh pain, right knee pain, and right hip pain. - Allergies/Home Medications Allergies/Adverse Reactions: Allergies Allergy/AdvReac Type Severity Reaction Status Date / Time Metoprolol [From Lopressor] Allergy Intermediate Tachycardia Verified 04/09/17 01:29 Penicillins Allergy Intermediate Rash Verified 04/09/17 01:29 Cefazolin [From Ancef] Allergy Unknown Unknown Verified 04/09/17 01:29 Reaction Details Sulfa Drugs Allergy Unknown Unknown Verified 04/09/17 01:29 Reaction Details Propofol Allergy SCREAMING Verified 04/09/17 01:29 AND THRASHING Naproxen AdvReac Intermediate upset Verified 04/09/17 01:29 stomach, vomiting Citalopram [From Celexa] AdvReac Mild Insomnia Verified 04/09/17 01:29 Tartrazine [From Sonata] AdvReac Mild Insomnia Verified 04/09/17 01:29 Zaleplon [From Sonata] AdvReac Mild Insomnia Verified 04/09/17 01:29 NSAIDs AdvReac Ulcers, GI Verified 04/09/17 01:29 upset PMH/Surg Hx/FS Hx/Imm Hx Endocrine/Hematology History: Reports: Hx Blood Transfusions, Hx Diabetes - NIDDM, Hx Thyroid Disease Denies: Hx Anticoagulant Therapy, Hx Blood Disorders, Hx Bone Marrow Disease , Hx Systemic Lupus Erythematosus, Hx Sickle Cell Disease, Hx Anemia, Hx Unexplained Bleeding Cardiovascular History: Reports: Hx Auto Implanted Cardiovert Defib, Hx Cardiomegaly - SINCE IN HER TEENS, Hx Congestive Heart Failure, Hx Deep Vein Thrombosis - right leg after surgery, Hx Hypercholesterolemia, Hx Hypertension - W/MEDS, Hx Pacemaker/ICD, Other Cardiovascular Problems/Disorders - BRADYCARDIA due to hypothyroidism; pacer not in use Denies: Hx Angina, Hx Coronary Artery Disease, Hx Myocardial Infarction, Hx Valvular Heart Disease Respiratory History: Reports: Other Respiratory Problems/Disorders - sob associated - inspiratory pain left ribs, abdominal distention per pt Denies: Hx Asthma, Hx Chronic Obstructive Pulmonary Disease (COPD) GI History: Reports: Hx Gastroesophageal Reflux Disease, Hx Irritable Bowel, Other GI Disorders - ABDOMEN DISTENDED Denies: Hx Cirrhosis, Hx Ulcer History: Denies: Hx Dialysis, Hx Renal Disease Musculoskeletal History: Reports: Hx Back Problems - back surgery x 3, Hx Orthopedic Injury, Other Musculoskeletal History - knee, hip surgery hx Denies: Hx Bursitis, Hx Congenital Bone Abnormalities, Hx Fibromyalgia, Hx Gout, Hx Osteoporosis, Hx Scoliosis, Hx Tendonitis Sensory History: Reports: Hx Contacts or Glasses Denies: Hx Cataracts, Hx Eye Injury, Hx Eye Prosthesis, Hx Glaucoma, Hx Macular Degeneration, Hx Vision Problem, Hx Deafness, Hx Hearing Aid, Hx Hearing Problem, Other Sensory Impairments Opthamlomology History: Reports: Hx Contacts or Glasses Denies: Hx Cataracts, Hx Eye Injury, Hx Eye Prosthesis, Hx Glaucoma, Hx Macular Degeneration, Hx Vision Problem, Other Sensory Impairments Neurological History: Denies: Hx Dementia, Hx Developmental Delay, Hx Headaches, Hx Migraine, Hx Seizures, Hx Spinal Cord Injury, Hx Transient Ischemic Attacks (TIA), Other Neuro Impairments/Disorders - LOC WITH FALLL Psychiatric History: Reports: Hx Anxiety Denies: Hx Attention Deficit Hyperactivity Disorder, Hx Eating Disorder, Hx Depression, Hx Panic Disorder, Hx Post Traumatic Stress Disorder, Hx Inpatient Treatment, Hx Schizophrenia, Hx Bipolar Disorder, Hx Suicide Attempt, Hx Substance Abuse, Other Psychiatric Issues/Disorders - Cancer History Cancer Type, Location and Year: skin cancer on right leg, removed Hx Chemotherapy: No Hx Radiation Therapy: No - Surgical History Surgery Procedure, Year, and Place: left shoulder surgery Jul 08 2013 csections x 3. partial hysterectomy. 3 back surgeries. right hip REPLACEMENT. LEFT KNEE RECONSTRUCTION. PACEMAKER [id number]. 3 C- SECTIONS. RIGHT SHOULDER ROTATOR CUFF REPAIR - 15 YEARS AGO. UMBILICAL HERNIA REPAIR Hx Anesthesia Reactions: Yes - PROPOFOL REACTION- THRASHING AND SCREAMING Infectious Disease History: Reports: Hx Clostridium Difficile, Hx of Known/ Suspected MRSA Denies: Hx Hepatitis, Hx Human Immunodeficiency Virus (HIV), Hx Shingles, Hx Tuberculosis - Family History Known Family History: Positive: Cardiac Disease - CAD, Diabetes, Other - Breast CA - Social History Alcohol Use: None Hx Substance Use: No Substance Use Type: Reports: None Hx Tobacco Use: No Smoking Status (MU): Never Smoked Tobacco Review of Systems Positive: Chest Pain Positive: Other - right thigh pain, right knee pain, and right hip pain, chronic lower back pain Neurological: Other - head trauma, dizziness, "saw stars" Positive: Headache, Syncope All Other Systems Reviewed And Are Negative: Yes Physical Exam - Summary Physical Exam Summary: General: mildly ill appearing, no pain distress Skin: Warm, Skin Color Reflects Adequate Perfusion, Dry Eyes: EOMI, LOLI ENT: Pharynx normal, TMs normal Neck: Supple, nontender Respiratory: CTA, breath sounds present, no rhonchi, no wheezes, no rales Cardiovascular: RRR, no murmur, no rub, no gallop Abdomen: Soft, nontender, Non-distended, no guarding, no rebound Bowel: Present Musculoskeletal: pain over left proximal thigh laterally Neuro: Sensory/motor intact, A&Ox3, CN intact 2-12 Psych: Affect/mood appropriate Triage Information Reviewed: Yes Vital Signs On Initial Exam: Initial Vitals Temp Pulse Resp BP Pulse Ox 98.2 F 78 16 138/64 96 04/23/17 14:48 04/23/17 14:48 04/23/17 14:48 04/23/17 14:48 04/23/17 14:48 Vital Signs Reviewed: Yes - Elle Coma Scale Best Eye Response: 4 - Spontaneous Best Motor Response: 6 - Obeys Commands Best Verbal Response: 5 - Oriented Diagnostics - Vital Signs Vital Signs Temp Pulse Resp BP Pulse Ox 04/23/17 15:33 16 04/23/17 14:48 98.2 F 78 16 138/64 96 - Laboratory Lab Results: Lab Results 04/23/17 04/23/17 04/23/17 Range/Units 15:24 15:24 15:24 WBC 7.4 (3.5-10.8) 10^3/ul RBC 4.27 (4.0-5.4) 10^6/ul Hgb 12.3 (12.0-16.0) g/dl Hct 38 (35-47) % MCV 89 (80-97) fL MCH 29 (27-31) pg MCHC 33 (31-36) g/dl RDW 18 H (10.5-15) % Plt Count 402 (150-450) 10^3/ul MPV 8 (7.4-10.4) um3 Neut % (Auto) 70.3 (38-83) % Lymph % (Auto) 21.5 L (25-47) % [place] % (Auto) 6.9 (1-9) % Eos % (Auto) 0.9 (0-6) % Baso % (Auto) 0.4 (0-2) % Absolute Neuts (auto) 5.2 (1.5-7.7) 10^3/ul Absolute Lymphs (auto) 1.6 (1.0-4.8) 10^3/ul Absolute Monos (auto) 0.5 (0-0.8) 10^3/ul Absolute Eos (auto) 0.1 (0-0.6) 10^3/ul Absolute Basos (auto) 0 (0-0.2) 10^3/ul Absolute Nucleated RBC 0 10^3/ul Nucleated RBC % 0 Sodium 136 (133-145) mmol/L Potassium 3.8 (3.5-5.0) mmol/L Chloride 96 L (101-111) mmol/L Carbon Dioxide 32 (22-32) mmol/L Anion Gap 8 (2-11) mmol/L BUN 10 (6-24) mg/dL Creatinine 0.67 (0.51-0.95) mg/dL Est GFR ( Amer) 114.0 (>60) Est GFR (Non-Af Amer) 88.6 (>60) BUN/Creatinine Ratio 14.9 (8-20) Glucose 166 H (70-100) mg/dL Lactic Acid 2.5 H* (0.5-2.0) mmol/L Calcium 9.3 (8.6-10.3) mg/dL Magnesium 1.4 L (1.9-2.7) mg/dL Total Bilirubin 0.70 (0.2-1.0) mg/dL AST 81 H (13-39) U/L ALT 57 H (7-52) U/L Alkaline Phosphatase 94 (34-104) U/L Total Creatine Kinase 1485 H (10-223) U/L Troponin I 0.12 H* (<0.04) ng/mL Total Protein 7.3 (6.4-8.9) g/dL Albumin 3.9 (3.2-5.2) g/dL Globulin 3.4 (2-4) g/dL Albumin/Globulin Ratio 1.1 (1-3) TSH 0.01 L (0.34-5.60) mcIU/mL Urine Color Urine Appearance Urine pH (5-9) Ur Specific [place] (1.010-1.030) Urine Protein (Negative) Urine Ketones (Negative) Urine Blood (Negative) Urine Nitrate (Negative) Urine Bilirubin (Negative) Urine Urobilinogen (Negative) Ur Leukocyte Esterase (Negative) Urine Glucose (Negative) 04/23/ Range/Units 15:24 WBC (3.5-10.8) 10^3/ul RBC (4.0-5.4) 10^6/ul Hgb (12.0-16.0) g/dl Hct (35-47) % MCV (80-97) fL MCH (27-31) pg MCHC (31-36) g/dl RDW (10.5-15) % Plt Count (150-450) 10^3/ul MPV (7.4-10.4) um3 Neut % (Auto) (38-83) % Lymph % (Auto) (25-47) % [place] % (Auto) (1-9) % Eos % (Auto) (0-6) % Baso % (Auto) (0-2) % Absolute Neuts (auto) (1.5-7.7) 10^3/ul Absolute Lymphs (auto) (1.0-4.8) 10^3/ul Absolute Monos (auto) (0-0.8) 10^3/ul Absolute Eos (auto) (0-0.6) 10^3/ul Absolute Basos (auto) (0-0.2) 10^3/ul Absolute Nucleated RBC 10^3/ul Nucleated RBC % Sodium (133-145) mmol/L Potassium (3.5-5.0) mmol/L Chloride (101-111) mmol/L Carbon Dioxide (22-32) mmol/L Anion Gap (2-11) mmol/L BUN (6-24) mg/dL Creatinine (0.51-0.95) mg/dL Est GFR ( Amer) (>60) Est GFR (Non-Af Amer) (>60) BUN/Creatinine Ratio (8-20) Glucose (70-100) mg/dL Lactic Acid (0.5-2.0) mmol/L Calcium (8.6-10.3) mg/dL Magnesium (1.9-2.7) mg/dL Total Bilirubin (0.2-1.0) mg/dL AST (13-39) U/L ALT (7-52) U/L Alkaline Phosphatase (34-104) U/L Total Creatine Kinase (10-223) U/L Troponin I (<0.04) ng/mL Total Protein (6.4-8.9) g/dL Albumin (3.2-5.2) g/dL Globulin (2-4) g/dL Albumin/Globulin Ratio (1-3) TSH (0.34-5.60) mcIU/mL Urine Color Straw Urine Appearance Clear Urine pH 5.0 (5-9) Ur Specific [place] 1.005 L (1.010-1.030) Urine Protein Negative (Negative) Urine Ketones Negative (Negative) Urine Blood Negative (Negative) Urine Nitrate Negative (Negative) Urine Bilirubin Negative (Negative) Urine Urobilinogen Negative (Negative) Ur Leukocyte Esterase Negative (Negative) Urine Glucose Negative (Negative) Result Diagrams: 04/23/17 15:24 04/23/17 15:24 Lab Statement: Any lab studies that have been ordered have been reviewed, and results considered in the medical decision making process. - Radiology CXR Radiology Interpretation Completed By: Radiologist - CXR, per radiologist, reveals NAD. ED physician has reviewed this radiology report and agrees. XR right knee Radiology Interpretation Completed By: Radiologist - XR right knee, per radiologist, reveals, moderate osteoarthritis. No acute findings. ED physician has reviewed this radiology report and agrees. XR femur Radiology Interpretation Completed By: Radiologist - XR femur, per radiologist, reveals No acute femoral fracture. ED physician has reviewed this radiology report and agrees. XR Hip/Pel Radiology Interpretation Completed By: Radiologist - XR hip/pel, per radiologist , reveals no acute findings. No evidence of hardware failure. ED physician has reviewed this radiology report and agrees. - CT Brain CT Interpretation Completed By: Radiologist - CT Brain, per radiologist, reveals no acute intracranial findings. ED physician has reviewed this radiology report and agrees. - EKG 1516 Cardiac Rate: NL EKG Rhythm: Sinus Rhythm - 74 bpm EKG Interpretation: No STEMI, with LVH but improved T-wave inversions since 02/18 EKG. EKG Comparison: Other - with LVH but improved T-wave inversions since 02/18/17 EKG. Re-Evaluation - Re-Evaluation First Eval Re-Evaluation Time: 16:25 Comment: Pt states that she has had intermittent CP since 1000 that are not aggravated by deep breaths. Course/Dx Assessment/Plan: Trop 0.12. Lactic 2.5. An EKG reveals NSR, 74 bpm, no STEMI, with LVH but improved T-wave inversions since 02/18/17 EKG. EKG was reviewed and clearly not STEMI. case discussed with hospitalist, on re-evaluation pt admits to cp this am just before syncopal episode, discussed with Dr. Escobar that PE is in the differential he plans on seeing the pt first. CT Brain, per radiologist, reveals no acute intracranial findings. XR right knee, per radiologist, reveals, moderate osteoarthritis. No acute findings. XR femur, per radiologist, reveals No acute femoral fracture. XR hip/pel, per radiologist , reveals no acute findings. No evidence of hardware failure. CXR, per radiologist, reveals NAD. ED physician has reviewed these radiology reports and agrees. 1641 Dr. Escobar (Hospitalist) agrees to admit. - Diagnoses Provider Diagnoses: Chest pain, Syncope, Lower extremity pain - Physician Notifications Discussed Care of Patient With: Junior Escobar - Hospitalist Time Discussed With Above Provider: 16:41 Instructed by Provider To: Admit As Inpatient Discharge - Discharge Plan Condition: Stable Disposition: ADMITTED TO [facility] Referrals: Olga Cavanaugh MD [Primary Care Provider] - The documentation as recorded by the Chip espino Nilda accurately reflects the service I personally performed and the decisions made by me, Kianna Conroy MD.
[2017-04-23] MEDS ORDERED: Dextrose 50% Syringe 50 ML* 25 GM/50 ML SYRINGE IV PUSH PRN (17:27)
[2017-04-23] MEDS ORDERED: Magnesium Sulfate 2 GM IV* 2 GM/50 ML BAG IVPB ONE (17:38)
--- NOTE | 2017-04-23 17:54 | RAD ---
INDICATION: Fall. Abdominal and pelvic pain. COMPARISON: CT chest/abdomen/pelvis April 09, 2017 TECHNIQUE: Noncontrast axial source images were obtained from the hemidiaphragms to the symphysis pubis. This examination was ordered using a renal stone protocol which is performed without oral or intravenous contrast and therefore has inherent limitations when used to evaluate other intra-abdominal or intrapelvic pathology. Consider conventional contrast enhanced imaging if clinically Lung bases: The lung bases are clear. There is cardiac pacemaker artifact. Liver: The liver is normal in size. Noncontrast imaging shows no evidence of a hepatic mass or ductal dilatation. Gallbladder: There are no calcified gallstones. There is no evidence of wall thickening or pericholecystic fluid.. Spleen: The spleen is normal in size. The noncontrast CT appearance is normal. Pancreas: Noncontrast imaging shows no pancreatic mass or ductal dilitation. Adrenal glands: No masses are identified. Kidneys/Bladder: There is no evidence of nephrolithiasis or CT evidence of hydronephrosis. Noncontrast imaging shows no evidence of a renal mass. The bladder is unremarkable.. Adenopathy: There is no evidence of intraperitoneal or retroperitoneal adenopathy. Evaluation is limited without oral contrast. Fluid collections: There are no free or localized fluid collections. Vessels: The aorta and iliac vessels are normal in caliber. There are no significant atherosclerotic changes. The IVC appears normal Pelvic organs: There is hysterectomy. There is no adnexal mass GI tract: Evaluation of the bowel is limited without oral contrast. The stomach, small bowel, and lower GI tract appear grossly normal. There are no obstructive findings. Soft tissues: No soft tissue abnormalities of the extraperitoneal abdomen or pelvis are identified. Osseous structures: There are no acute osseous findings. There is extensive lumbar surgery with rubens placement with pedicle screws from the thoracolumbar junction through S1. There is right hip arthroplasty. There is pinning of hardware produces beam hardening artifact further limits evaluation of the pelvic structures and to lesser degree the abdominal structures. IMPRESSION: NONCONTRAST IMAGING SHOWS NO ACUTE CT FINDINGS.
[2017-04-23 18:08] LABS: T4 9.69 mcg/mL (6.09-12.23)
[2017-04-23 18:12] LABS: Free T3 3.4 pg/mL (2.5-3.9)
[2017-04-23 18:13] LABS: Free T4 1.04 ng/dL (0.61-1.12)
[2017-04-23 18:17] LABS: Total T3 0.97 ng/mL (0.87-1.78)
[2017-04-23] MEDS: oxyCODONE TAB* 5 MG TAB PO PRN (19:24)
[2017-04-23] MEDS ORDERED: Iodixanol* (CONTRAST) 320 MG/ML 100 ML SDV IV ONE (20:35)
[2017-04-23] MEDS ORDERED: Ondansetron INJ* 2 MG/ML VIAL IV PRN (20:44)
--- NOTE | 2017-04-23 20:46 | RAD ---
INDICATION: Fall and syncope. Intracranial injury. Fall. Possible abdominal or pelvic injury. Fall. Now with chest pain. CT chest for PE. COMPARISON: CT brain, CT abdomen pelvis, chest x-ray same date; CT chest/abdomen/pelvis April 09, 2017; CTA chest February 17, 2017 TECHNIQUE: Axial source images were obtained from the thoracic inlet to the hemidiaphragms following administration of 93 mL [address] angiographic technique was utilized. Coronal and sagittal reconstructed images were acquired. CHEST FINDINGS: Neck/thyroid: The visualized neck to include the thyroid appear normal. Chest wall: There are no acute abnormalities of the bony thorax or chest wall. There is spondylitic change of the thoracic spine There is no supraclavicular, infraclavicular, or axillary lymphadenopathy. Lungs : There are no pulmonary parenchymal masses or infiltrates. The pulmonary interstitium appears normal. There are no endobronchial lesions. Cardiomediastinal structures: There is no CT evidence of acute pulmonary embolic disease. The heart is top normal in size. There is pacemaker artifact. There is no pericardial effusion. There is no evidence of aortic aneurysm or dissection. There is no mediastinal or hilar adenopathy. The esophagus appears normal. Pleura : There are no pleural-based masses or effusions. Other: The caudal most images show spinal fusion with rubens placement. IMPRESSION: NO CT EVIDENCE OF ACUTE PULMONARY EMBOLIC DISEASE. LUNGS CLEAR.
[2017-04-23] MEDS: NS 0.9% 1000 ML* 1,000 ML IV SCH (20:49)
[2017-04-23 21:50] LABS: Troponin I 0.03 ng/mL (<0.04)
--- NOTE | 2017-04-23 21:52 | HP ---
CC: Dr. Cavanaugh; Dr. Hdez * HISTORY AND PHYSICAL: DATE OF ADMISSION: 04/23/17 PRIMARY CARE PROVIDER: Dr. Cavanaugh. ATTENDING PHYSICIAN WHILE IN THE HOSPITAL: Junior Escobar MD * (report dictated by Myriam Torres NP). CONSULTING VESSEL WELDER: Dr. Hdez. CHIEF COMPLAINT: Syncope. HISTORY OF PRESENTING ILLNESS: Ms. Barragan is a 62-year-old female patient. She has a history of chronic pain, anxiety, history of DVT, diabetes, obesity, hyperlipidemia, hypothyroidism, hypertension, and a history of melanoma, who came into the ED today stating that she was feeling pretty good this morning, she sat down and ate breakfast, she was getting up to walk about her kitchen and the next thing she knew she woke up, she was on her right side. She says prior to having this episode, she was having some chest discomfort that was into her neck and jaw and she also had some nausea associated with this. She fell and she was having palpitations. She landed on the right side. She does state that she hit her head. She does not really know how long she was on the floor for, but the next thing she knew she woke up and it was 1:30. She was able to get her cell phone, she called 911 and came into the hospital. She said that episode was similar to this in the past. Her biggest complaint now is she is complaining of right hip pain. She denies having anymore chest pain. She says that recently she has not been anymore short of breath. There has been no cough, fevers, chills. She did say she had 2 episodes of diarrhea this morning. There has been no abdominal discomfort nor any fevers or chills. She came into the ED today because of the syncopal episode. She says that she has had these in the past. She was evaluated, it was noted that her troponin was mildly elevated. In addition to this, it was also noted that her CK was elevated. Because of the syncopal episode, the elevated troponin and the fact she had chest discomfort, we were asked to evaluate for admission. PAST MEDICAL HISTORY: Significant for: 1. Chronic pain. 2. Anxiety. 3. History of DVT. 4. History of diabetes. 5. Obesity. 6. Hyperlipidemia. 7. Hypertension. 8. Hypothyroidism. 9. Melanoma. PAST SURGICAL HISTORY: 1. She has had a pacemaker placement. 2. Knee replacement. 3. She has had heart catheterizations, which showed no obstructive disease in 2016. 4. She has had a right total hip replacement. 5. She has had back surgery x4. 6. She has had x3. 7. She has had rotator cuff repair. HOME MEDICATIONS: Include, 1. Multivitamin 1 tablet daily. 2. Metformin 1000 mg p.o. b.i.d. 3. Zocor 40 mg at bedtime. 4. Propranolol 20 mg p.o. b.i.d. 5. MiraLAX 17 g p.o. daily as needed. 6. Ambien 10 mg p.o. at bedtime as needed. 7. Avapro 150 mg p.o. daily. 8. Roxicodone 15 mg every 4 hours as needed. 9. Ativan 1 mg p.o. 4 times a day. 10. Lasix 40 mg daily. 11. Synthroid 75 mcg daily. 12. Aspirin 81 mg daily. 13. Vitamin D3, 1000 units p.o. daily. ALLERGIES TO MEDICATIONS: Include METOPROLOL, PENICILLIN, CEFAZOLIN, SULFA, PROPOFOL, CELEXA, SONATA, and NSAIDs. FAMILY HISTORY: Her father had a history of [place]. Mother had a history of CABG and also had a bypass surgery. SOCIAL HISTORY: She does not smoke, does not drink. Surrogate decision maker is her mother. REVIEW OF SYSTEMS: There is no documented fever. She denied having any significant weight change. There was no double vision. She denies having any ear discharge. There was no rhinorrhea. There was no sore throat. No thyroid enlargement. She denied having any chest pain currently, but there was one per my HPI. There was no orthopnea. There was no nocturnal dyspnea. There was no abdominal pain. No nausea, no vomiting. There was no dysuria, no frequency. There was a loss of consciousness. No seizure-like activity was reported. No pruritus. Review of 14 systems completed, all others were negative. PHYSICAL EXAMINATION GENERAL: At this time, Ms. Barragan is a 62-year-old female patient; she is sitting in the ED stretcher. She does not appear to be in any acute distress. VITAL SIGNS: Blood pressure 125/63, pulse 72, respirations 16, O2 sat 97%, temperature 98.2. HEENT: Head is atraumatic and normocephalic. Eyes: EOMs intact. Sclerae anicteric and not pale. Throat: Oral mucosa appears to be moist. No oropharyngeal erythema. NECK: Supple. LUNGS: Clear to auscultation bilaterally. No wheezes, rales, or rhonchi. HEART: Sounds S1, S2. Regular rate and rhythm. No murmurs, rubs, or gallops. ABDOMEN: Soft. It was flat, nontender. Bowel sounds were present. EXTREMITIES: The right lower extremity, she has a significant amount of pain with any type of flexion or extension of the lower extremity at the hip. This is not shortened or rotated. There was no crepitus felt on palpation of the joint. She had 5/5 strength. NEUROLOGICAL: She is awake, alert, she is oriented x3. Her tongue is midline. Her helper maintenance cleaning are equal. She had no gross focal deficits. SKIN: Grossly intact. LABORATORY DATA/DIAGNOSTIC STUDIES: Labs today revealed WBC of 7.4, RBC of 4.27, hemoglobin of 12.3, hematocrit 38, platelet count of 402,000. Sodium was 136, potassium was 3.8, chloride 96, bicarb 32, BUN 10, creatinine 0.67, glucose 166, lactate 2.5, calcium was 9.3, her mag was 1.4. The total bili was 0.7, AST was 81, ALT 57, her alk phos was 94. CK was 1485, troponin 0.12. The albumin was 3.9. The TSH was 0.01. Urine was obtained, it was negative. She did have multiple imagings here in the ED. Brain CT showed no evidence for acute intracranial findings. Chest x-ray showed no active disease. EKG shows a normal sinus rhythm, T-wave inversions in V5 and V6, in addition of this also inverted in lead 1. I reviewed it with previous EKG, it is similar. She actually had more inversions on the previous EKG. She had T-wave inversions in the V2, 3, 4, 5, and 6 previously, though these are now just in V5 and 6. No ST elevations were noted. She had a hip and pelvis x-ray obtained today, which revealed no acute findings, no evidence of hardware failure. She had a femur x- ray obtained today, which revealed no acute femoral fracture. She had a knee x- ray obtained today, which revealed moderate osteoarthritis, no acute findings. Old medical records were reviewed. She had a stress test in September of this year, which impression; findings suggestive of moderate to large area of ischemia in the anterior wall, intermediate risk. She had a nonobstructive coronary artery disease according to old records in October 2015 at [facility]. Old medical records were reviewed. ASSESSMENT AND PLAN: Ms. Barragan is a 62-year-old female patient coming into the ED today with complaints of a syncopal episode and on evaluation found to have elevated troponin and CK. She will be admitted under inpatient status for: 1. Chest pain. Again at this point, she is chest pain-free, but the troponin being elevated is concerning. She did have a syncopal episode with this, so my plan would be to go ahead and cycle her troponins, get an echo. I will check orthostatic blood pressures. I am also going to check her CK as this certainly could be causing the troponins to be a little bit slightly elevated and I did place a consult to Cardiology. She is chest pain free now. Should her troponins go up, we may consider heparin drip, but I am holding off at this point because of the recent trauma. She is on aspirin, propranolol, and statin. Chest pain free. We will continue to monitor and follow this. We will cycle those CKs and monitor. 2. Rhabdomyolysis. Again, it is mild. Her CK is 1485. We are going to hydrate her, check these every 6 hours and follow, and we will repeat the BMP in the morning. 3. Lactic acidosis, etiology unclear. It is 2.5. She is not exhibiting any active signs of infection. I will repeat this after hydration. Should she have a fever, we will get pancultures and low threshold for antibiotics, but I do not see a point at this point. 4. Syncope. Again, we will get the echo, orthostatics, telemetry, cycle those troponins, and follow. She did have palpitations previously to the syncope, so we are going to get a pacemaker interrogation. 5. Hypothyroidism. At this point, her TSH is low at 0.01, so I am going to check free T3, T4, holding her Synthroid. She can follow up with her primary. 6. Chronic pain. Continue medications as prescribed. 7. Right knee and hip pain. I am going to get a CT of the pelvis to make sure she does not have underlying fracture that we could not see on x-ray. 8. Anxiety. Supportive care. 9. History of deep venous thrombosis. I am going to check a D-dimer. Certainly she may have had a pulmonary embolism that is causing this to bump her troponins. If her D-dimer is elevated, I will get a CTA of the chest. We will follow. 10. Diabetes. Lispro sliding scale has been ordered. 11. History of hyperlipidemia. Continue statin therapy. 12. Hypertension. Continue medications as prescribed. 13. DVT prophylaxis. She is high risk. She will be placed on heparin subcutaneously. 14. Code status. Full code. 15. Fluids, electrolytes, and nutrition. She can have a consistent carbohydrate diet. TIME SPENT: On the admission was 60 minutes; greater than half the time spent face- to-face with the patient obtaining my history and physical, other half the time spent going over the plan of care with the patient and implementing the plan of care. I discussed plan of care with my attending, Dr. Escobar; he is in agreement. MYIRAM TORRES NP [id number]/[facility] #: [id number] KARRI
[2017-04-23] MEDS: Propranolol TAB* 20 MG PO SCH (22:26)
[2017-04-23] MEDS: Zolpidem TAB* 10 MG PO PRN (22:26)
[2017-04-23] MEDS: Atorvastatin* 20 MG TAB PO SCH (22:27)
[2017-04-23] MEDS: LORazepam TAB(*) 0.5 MG PO PRN (22:27)
[2017-04-23] MEDS: HYDROmorphone INJ* 1 MG/ML CARPUJECT SYRINGE IV SLOW PU PRN (22:28)
[2017-04-23] MEDS: Heparin VIAL(*) 5000 UNITS/ML VIAL (FIVE THOUSAND) SUBCUT SCH (22:33)
[2017-04-24] MEDS: oxyCODONE TAB* 5 MG TAB PO PRN ×5 (00:47→20:08)
[2017-04-24 01:48] LABS: Troponin I 0.03 ng/mL (<0.04)
[2017-04-24] MEDS: Acetaminophen TAB* 325 MG PO PRN ×2 (03:25→15:19)
[2017-04-24] MEDS: LORazepam TAB(*) 0.5 MG PO PRN ×4 (03:26→22:17)
[2017-04-24] MEDS: HYDROmorphone INJ* 1 MG/ML CARPUJECT SYRINGE IV SLOW PU PRN ×4 (03:27→22:21)
[2017-04-24] MEDS: NS 0.9% 1000 ML* 1,000 ML IV SCH ×2 (05:18→17:15)
[2017-04-24] MEDS: Heparin VIAL(*) 5000 UNITS/ML VIAL (FIVE THOUSAND) SUBCUT SCH ×3 (05:58→20:08)
[2017-04-24] MEDS: Propranolol TAB* 20 MG PO SCH (08:45)
[2017-04-24] MEDS: Insulin LISPRO* 1 UNITS UNIT SUBCUT SCH ×3 (08:45→17:15)
[2017-04-24] MEDS ORDERED: Aspirin Low Dose CHEW TAB* 81 MG PO SCH (09:00)
[2017-04-24] MEDS ORDERED: Aspirin EC Low Dose* 81 MG TAB.EC PO SCH (09:00)
[2017-04-24] MEDS ORDERED: Losartan TAB* 25 MG PO SCH (09:00)
[2017-04-24] MEDS ORDERED: Levothyroxine TAB* 75 MCG TAB PO SCH (09:00)
[2017-04-24 12:02] LABS: Hematocrit 34 % (35-47); Hemoglobin 11.2 g/dl (12.0-16.0); Mean Corpuscular HGB Conc 33 g/dl (31-36); Mean Corpuscular Hemoglobin 29 pg (27-31); Mean Corpuscular Volume 90 fL (80-97); Mean Platelet Volume 8 um3 (7.4-10.4); Red Cell Distribution Width 18 % (10.5-15); White Blood Count 6.5 10^3/ul (3.5-10.8)
[2017-04-24 12:12] LABS: BUN/Creatinine Ratio 21.4 (8-20); Calcium 9.1 mg/dL (8.6-10.3); EGFR African American 108.3 (>60); EGFR Non-African American 84.2 (>60); Potassium 3.4 mmol/L (3.5-5.0)
--- NOTE | 2017-04-24 12:18 | PN ---
Subjective Date of Service: 04/24/17 Interval History: This is a 62 yo female with DM, chronic pain, anxiety, HTN and pacemaker in place for h/o sick sinus syndrome. She was admitted yesterday after a syncopal episode at home with associated rhabdomylosis. Patient described some chest discomfort and palpitations that proceeded the acute episode. She was admitted under similar circumstances in Sep, sounded like orthostasis was thought to be the culprit at that time. Patient has been complaining of R hip and knee pain today. Imaging of both joints shows no fracture. She did spend several hours on a cold stone floor on her R side. She reports that she had some palpitations this am ~9:30. No CP or SOB. No additional symptoms. Objective Active Medications: Acetaminophen (Tylenol Tab*) 650 mg PO Q4H PRN PRN Reason: FEVER/PAIN Last Admin: 04/24/17 03:25 Dose: 650 mg Aspirin (Aspirin Ec Low Dose*) 81 mg PO DAILY [facility] Last Admin: 04/24/17 08:45 Dose: 81 mg Atorvastatin Calcium (Lipitor*) 20 mg PO BEDTIME MIGUEL Last Admin: 04/23/17 22:27 Dose: 20 mg Cyclobenzaprine HCl (Flexeril Tab*) 10 mg PO TID PRN PRN Reason: SPASMS Dextrose (D50w Syringe 50 Ml*) 12.5 gm IV PUSH .FOR FS < 60 - SS PRN PRN Reason: FS < 60 Heparin Sodium (Porcine) (Heparin Vial(*)) 5,000 units SUBCUT Q8HR [facility] Last Admin: 04/24/17 05:58 Dose: 5,000 units Hydromorphone HCl (Dilaudid Injic*) 0.5 mg IV SLOW PU Q4H PRN PRN Reason: PAIN Last Admin: 04/24/17 08:46 Dose: 0.5 mg Sodium Chloride (Ns 0.9% 1000 Ml*) 1,000 mls @ 125 mls/hr IV PER RATE [facility] Last Admin: 04/24/17 05:18 Dose: 125 mls/hr Insulin Human Lispro (Humalog*) 0 units SUBCUT AC MIGUEL PRN Reason: Protocol Last Admin: 04/24/17 08:45 Dose: 6 units Lorazepam (Ativan Tab(*)) 1 mg PO QID PRN PRN Reason: ANXIETY Last Admin: 04/24/17 08:45 Dose: 1 mg Losartan Potassium (Cozaar Tab*) 50 mg PO DAILY MIGUEL Last Admin: 04/24/17 08:45 Dose: 50 mg Ondansetron HCl (Zofran Inj*) 4 mg IV Q6H PRN PRN Reason: NAUSEA Oxycodone HCl (Roxycodone Tab*) 15 mg PO Q4H PRN PRN Reason: PAIN Last Admin: 04/24/17 11:14 Dose: 15 mg Polyethylene Glycol/Electrolytes (Miralax*) 17 gm PO DAILY PRN PRN Reason: CONSTIPATION Propranolol HCl (Inderal Tab*) 20 mg PO BID MIGUEL Last Admin: 04/24/17 08:45 Dose: 20 mg Zolpidem Tartrate (Ambien Tab*) 10 mg PO BEDTIME PRN PRN Reason: SLEEP Last Admin: 04/23/17 22:26 Dose: 10 mg Vital Signs: Temp Pulse Resp BP Pulse Ox 97.5 F 62 16 160/59 94 04/24/17 08:08 04/24/17 08:08 04/24/17 11:14 04/24/17 08:08 04/24/17 08:08 Oxygen Devices in Use Now: None Appearance: Chronically ill appearing 62 yo female in NAD Respiratory: Symmetrical Chest Expansion and Respiratory Effort, Clear to Auscultation Cardiovascular: NL Sounds; No Murmurs; No JVD, RRR Abdominal: NL Sounds; No Tenderness; No Distention Extremities: No Edema Skin: No Rash or Ulcers Neurological: Alert and Oriented x 3 Result Diagrams: 04/24/17 11:40 04/23/17 15:24 Additional Lab and Data: . Diagnostic Imaging: XR hip/pelvis - NAD CTA chest - No PE CT abd/pelvis - No fx or other acute process Assess/Plan/Problems-Billing Assessment: This is a 62 yo obese female with multiple medical problems including DM, chronic pain, HTN, hypothyroidism, h/o DVT and melanoma who presented after an acute syncopal episode and associated rhabdomyolysis. - Patient Problems (1) Rhabdomyolysis Comment: Due to prolonged period of time of the ground CPK improving with IVF No renal impairment (2) Syncope Comment: Unclear etiology Pending pacer interrogation Echo from 01/2017 was essentially WNL Check carotid US Orthostatics were positive at admission, but in the setting of acute rhabdo c/o palpitations this am, no corresponding changes on telemetry, primarily paced Pending cardiology consultation (3) Demand ischemia Comment: Initial troponin 0.12, normal on serial exam Likely demand related to rhabdo No c/o CP or acute ischemic changes on EKG (4) Pacemaker Comment: h/o sick sinus syndrome Interrogation pending (5) Anxiety Comment: Cont home medications Anxious about returning home, but no severe, acute symptoms (6) Chronic pain Comment: C/o R hip and knee pain, imaging negative, likely due to prolonged period of time on the floor Continue home oxycodone (7) Diabetes Comment: SS coverage during her hospital stay (8) Hypertension Comment: Normotensive Hold ARB with acute rhabdo (9) Hypothyroidism Comment: Continue Synthroid at home dose. (10) DVT prophylaxis Comment: SQ Heparin (11) Full code status Status and Disposition: Inpatient. Pending PT eval, may require MARCIA. Pending pacer interrogation and cardiology consultation
--- NOTE | 2017-04-24 15:44 | RAD ---
Indication: Syncope. Real-time sonography of the carotid arteries was performed. The right common carotid artery demonstrates no intimal wall thickening. Plaque is noted in the carotid bulb extending into the right internal carotid artery. Peak systolic velocity of the distal right common carotid artery is 89 cm/s. Peak systolic velocity of the right internal carotid artery proximally is 56 cm/s elevated to 105 cm/s in its midportion. ICA/CC ratio 0.6. Right vertebral artery demonstrates antegrade flow. The left common carotid artery demonstrates no intimal wall thickening. Plaque is noted in the carotid bulb. Peak systolic velocity of the distal left common carotid artery 67 cm/s. Peak systolic velocity of the left proximal internal carotid artery is 72 cm/s. The ICA/CC ratio is 1.1. Left vertebral artery demonstrates antegrade flow. IMPRESSION: Plaque is noted in both internal carotid arteries however less than 50% stenosis of both internal carotid arteries is noted. The study is somewhat limited due to body habitus.
--- NOTE | 2017-04-24 17:43 | ECHO ---
Patient: AISHWARYA PEREZ [facility] Rec#: [id number] : 1955 Date: 04/24/2017 Age: 62y Height: 162.56 cm / 64.0 in Weight: 115.67 kg / 254.9 lbs Sex: F BSA: 2.17 Room#: 433 Admit Date#: 04/23/2017 Type: Inpatient Referring: Shemar Torres NP Reading: Abelino Hdez DO Freight Booker: Karen Zapata,ANACS,RDMS CC: SARAH DALY Transthoracic Echocardiogram Indication: Syncope BP: 173/73 HR: 71 Rhythm: NSR Findings History: CAD, HLD, HTN, DVT, DM, pericarditis, pacemaker Technical Comments: The study is technically limited due to poor parasternal windows. Left Ventricle: The left ventricular chamber size is normal. Moderate concentric left ventricular hypertrophy is observed. Global left ventricular wall motion and contractility are within normal limits. There is normal left ventricular systolic function. The estimated ejection fraction is 55-60%. Abnormal left ventricular diastolic function is observed. Left Atrium: The left atrium is moderately dilated. Right Ventricle: The right ventricular chamber size and systolic function are within normal limits. A pacemaker wire is visualized in the right ventricle. Right Atrium: The right atrium is mildly dilated. A pacemaker wire is visualized in the right atrium. Aortic Valve: The aortic valve structure is not well visualized. There is no evidence of aortic regurgitation. There is no evidence of aortic stenosis. Mitral Valve: Mild mitral annular calcification present. The mitral valve leaflets are mildly thickened. There is trace to mild mitral regurgitation. There is no evidence of mitral stenosis. Tricuspid Valve: The tricuspid valve leaflets are normal. There is trace to mild tricuspid regurgitation. There is evidence of mild pulmonary hypertension. Pulmonic Valve: The pulmonic valve structure is not well visualized. Pericardium: There is no significant pericardial effusion. Aorta: The aortic root appears normal. The aortic arch is not well visualized. Pulmonary Artery: The main pulmonary artery is not well visualized. Venous: The inferior vena cava is dilated. There is an approximate 50% respiratory change in the inferior vena cava dimension. Conclusions The left ventricular chamber size is normal. Moderate concentric left ventricular hypertrophy is observed. Global left ventricular wall motion and contractility are within normal limits. There is normal left ventricular systolic function. The estimated ejection fraction is 55-60%. The left atrium is moderately dilated. The right ventricular chamber size and systolic function are within normal limits. A pacemaker wire is visualized in the right ventricle. There is evidence of mild pulmonary hypertension. The pulmonic valve structure is not well visualized. Compared to prior study from 01/2017, no clinically significant changes noted. Measurements Name Value Normal Range RVIDd (AP) 2D 2.7 cm (0.9 - 2.6) RVDdMajor (2D) 2.9 cm (2.2 - 4.4) RAd ISD 4CH 5.4 cm (3.4 - 4.9) RA (A4C)W 4.7 cm (2.9 - 4.6) IVSd (2D) 1.4 cm (0.6 - 1) LVPWd (2D) 1.5 cm (0.6 - 1) LVIDd (2D) 5.1 cm (3.6 - 5.4) LVIDs (2D) 3.8 cm - LV FS (2D) 26 % (25 - 45) Aortic Annulus 2.2 cm (1.4 - 2.6) Ao root diameter (2D) 2.8 cm (2.1 - 3.5) Ascending Ao 3.2 cm (2.1 - 3.4) LA dimension (AP) 2D 5.5 cm (2.3 - 3.8) LAd ISD 4CH 5.1 cm (2.9 - 5.3) LA ISD 4CH W 5.4 cm (2.5 - 4.5) Name Value Normal Range LA ESV SP 4CH (A/L) 65.87 ml - LA ESV SP 2CH (A/L) 87.45 ml - LA ESV BP (A/L) 77.33 ml - LA ESV BP (A/L) index 36 ml/m2 - LA ESV SP 4CH (MOD) 60.53 ml - LA ESV SP 2CH (MOD) 83.58 ml - Name Value Normal Range MV E-wave Vmax 1 m/sec - MV deceleration time 200 msec - MV A-wave Vmax 1 m/sec - MV E:A ratio 1 ratio - P. vein S-wave Vmax 0.5 m/sec - P. vein D-wave Vmax 0.5 m/sec - P. vein S:D Vmax ratio 1 ratio - P. vein A-wave duration 107 msec - LV septal e' Vmax 0.05 m/sec - LV lateral e' Vmax 0.06 m/sec - LV E:e' septal ratio 20 ratio - LV E:e' lateral ratio 17 ratio - Name Value Normal Range AV Vmax 1.9 m/sec - AV VTI 38.4 cm - AV peak gradient 14 mmHg - AV mean gradient 7.6 mmHg - LVOT Vmax 1.2 m/sec - LVOT VTI 29 cm - LVOT peak gradient 6 mmHg - LVOT mean gradient 3.3 mmHg - CANDI Vmax 0.8 m/sec - Name Value Normal Range MV Vmax 1.2 m/sec - MV VTI 32 cm - MV peak gradient 6 mmHg - MV mean gradient 2.3 mmHg - MV PHT 67 msec - MVA (PHT) 3.3 cm2 - Name Value Normal Range TR Vmax 2.9 m/sec - TR peak gradient 34 mmHg - RAP 8 mmHg - RVSP 42 mmHg - IVC diameter 3 cm - Name Value Normal Range PV Vmax 0.7 m/sec - PV peak gradient 2 mmHg -
--- NOTE | 2017-04-24 18:12 | CONSULT ---
Subjective Date of Service: 04/24/17 Interval History: Consult date 04/24/2017 Service: Hospitalist Primary Care Physician: Olga Cavanaugh MD Admission Date: 04/23/17 Date of consult: 04/24/2017 CHIEF COMPLAINT: Syncope Reason for consult: Syncope HPI Miriam Barragan is a 62 year old woman who I have seen in the past for a preoperative evaluation. She has a history of obesity, diabetes, hypertension, hypertensive heart disease, peptic ulcer disease in the past, permanent pacemaker, provoked post-op PE 2000, IBS, edema. She has had issues with intermittent chest pain, dyspnea and falls vs. syncope. She has a longstanding known abnormal EKG and intermittent troponin elevation. In October 2015 she had her second lifetime angiogram showing no significant CAD. Symptoms at that time were substernal chest discomfort radiating to jaw and left arm. Most recent stress test for chest pain 09/2016 at [facility] [place] was normal as per Dr. Alex. Patient on day of admission had felt chest discomfort radiating into into left jaw and arm after walking following breakfast. Next thing she knew as on the ground unsure how long form. These episodes have happened multiple times in the past. She had mild rhabo from the event. Her first cTnI was mildly detectable at 0.12 and then normalized and stayed normal. EKG unchanged showed LVH with repolarization abnormalities. TTE showed normal LVEF, moderate LVH, no segmental wall motion abnormalities. Mild troponin elevation likely related to LVH and hemodynamic changes. Given her prior history and context, this event is not consistent with a type 1 plaque disruption [place]. Of note, she was started on propanolol for tremors within last few months did not help at all. CT PE study did not show a PE Allergies:PCN 06/23/06 - rash , rapid HR Anaprox 06/22/13 Ancef 06/22/13 Lopressor 06/22/13 Morphine 06/22/13 Cipro 03/14/16 Sulfa Antibiotics 03/14/16 NSAIDs 03/14/16 allergy list reviewed on 03/14/2016 PMH: Thyroid Disease Knee Injury - ( Pulmonary Embolism - (2000) Pericarditis - (1997) Abnormal EKG - (1997) sleep disorder hypercholesterolemia hypothyroidism nocturia back pain Hypertension has been tested twice before for sleep apnea and has been ok Surgical Hx: X3 Hysterectomy - (1979) Partial Back Surgeries - 2011,2013 X 2 Rotator Cuff - (1999) right., Left 2014 Tonsillectomy left knee surgery - (1987) Reconstructive right total hip replacement - (2009) Cardiac Procedures: Pacemaker Implantation - [facility] 2011 FH: heart disease, diabetes, Kidney Disease. her father had a history of [place]. Mother had a history of CABG and also had a bypass surgery. SH: Lives With: Alone. she has been for 3+ years as her of a myocardial infarction. She has 3 sons in the . 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 Personal Habits: Smoking: Patient has never smoked.Alcohol: Denies alcohol use.Drug Use: Denies Drug Use.Daily Caffeine: Does Not Consume Caffeine.Exercise Type: Does not exercise. ALLERGIES TO MEDICATIONS: Include METOPROLOL, PENICILLIN, CEFAZOLIN, SULFA, PROPOFOL, CELEXA, SONATA, and NSAIDs. Medications Active Medications: Acetaminophen (Tylenol Tab*) 650 mg PO Q4H PRN PRN Reason: FEVER/PAIN Last Admin: 04/24/17 15:19 Dose: 650 mg Aspirin (Aspirin Ec Low Dose*) 81 mg PO DAILY [facility] Last Admin: 04/24/17 08:45 Dose: 81 mg Atorvastatin Calcium (Lipitor*) 20 mg PO BEDTIME [facility] Last Admin: 04/23/17 22:27 Dose: 20 mg Cyclobenzaprine HCl (Flexeril Tab*) 10 mg PO TID PRN PRN Reason: SPASMS Dextrose (D50w Syringe 50 Ml*) 12.5 gm IV PUSH .FOR FS < 60 - SS PRN PRN Reason: FS < 60 Heparin Sodium (Porcine) (Heparin Vial(*)) 5,000 units SUBCUT Q8HR [facility] Last Admin: 04/24/17 12:55 Dose: 5,000 units Hydromorphone HCl (Dilaudid Injic*) 0.5 mg IV SLOW PU Q4H PRN PRN Reason: PAIN Last Admin: 04/24/17 17:15 Dose: 0.5 mg Sodium Chloride (Ns 0.9% 1000 Ml*) 1,000 mls @ 125 mls/hr IV PER RATE [facility] Last Admin: 04/24/17 17:15 Dose: 125 mls/hr Insulin Human Lispro (Humalog*) 0 units SUBCUT AC [facility] PRN Reason: Protocol Last Admin: 04/24/17 17:15 Dose: 2 units Lorazepam (Ativan Tab(*)) 1 mg PO QID PRN PRN Reason: ANXIETY Last Admin: 04/24/17 15:23 Dose: 1 mg Ondansetron HCl (Zofran Inj*) 4 mg IV Q6H PRN PRN Reason: NAUSEA Oxycodone HCl (Roxycodone Tab*) 15 mg PO Q4H PRN PRN Reason: PAIN Last Admin: 04/24/17 15:19 Dose: 15 mg Polyethylene Glycol/Electrolytes (Miralax*) 17 gm PO DAILY PRN PRN Reason: CONSTIPATION Propranolol HCl (Inderal Tab*) 20 mg PO BID [facility] Last Admin: 04/24/17 08:45 Dose: 20 mg Zolpidem Tartrate (Ambien Tab*) 10 mg PO BEDTIME PRN PRN Reason: SLEEP Last Admin: 04/23/17 22:26 Dose: 10 mg Home Medications: Cholecalciferol [Vitamin D-3] 1,000 unit PO DAILY 09/29/13 [History Confirmed ] Simvastatin (NF) [Zocor (NF)] 40 mg PO BEDTIME 02/03/15 [History Confirmed 04/23] Polyethylene Glycol 3350* [Miralax*] 17 gm PO DAILY PRN 02/16/15 [History Confirmed 04/23/17] Zolpidem TAB* [Ambien*] 10 mg PO BEDTIME PRN 02/16/15 [History Confirmed ] LORazepam TAB(*) [Ativan 0.5 MG TAB (*)] 1 mg PO QID #20 tab MDD 3 02/21/17 [Rx Confirmed 04/23/17] oxyCODONE TAB* [Roxycodone TAB 5 mg*] 15 mg PO Q4H PRN #20 tab MDD 60 02/21/17 [ Rx Confirmed 04/23/17] Aspirin EC Low Dose* [Ecotrin EC Low Dose 81 MG*] 81 mg PO DAILY 04/23/17 [ History Confirmed 04/23/17] Furosemide TAB* [Lasix TAB*] 40 mg PO DAILY 04/23/17 [History Confirmed 04/23/17 ] Irbesartan (NF) [Avapro (NF)] 150 mg PO DAILY 04/23/17 [History Confirmed ] Levothyroxine TAB* [Synthroid TAB*] 75 mcg PO DAILY 04/23/17 [History Confirmed 04/23/17] Multivitamins/Minerals TAB* [Theragran/minerals TAB*] 1 tab PO DAILY 04/23/17 [ History Confirmed 04/23/17] Propranolol TAB* [Inderal TAB*] 20 mg PO BID 04/23/17 [History Confirmed ] metFORMIN* [Glucophage 1000 MG TAB *] 1,000 mg PO BID 04/23/17 [History Confirmed 04/23/17] Review of Systems - Measurements Intake and Output: Intake and Output Last 24 Hours 04/22/17 04/23/17 04/24/17 04/25/17 06:59 06:59 06:59 06:59 Intake Total 2858 1174 Output Total 0 0 Balance 2858 1174 Weight 256 lb 6.4 oz Intake: IV Fluids 2803 634 NS (0.9%) 1803 634 IVPB 55 NS (0.9%) 55 Oral 0 540 Output: Urine 0 0 Other: # Bowel Movements 0 1 Estimated Stool Amount Medium # Voids 0 3 - Review of Systems Constitutional Symptoms: Positive: Weight Gain, Weakness, Fatigue, Unexplained Falls Dermatology: Negative: Skin Lesions, Cancer HEENT: Negative: Change in Hearing, Vertigo Eyes: Negative: Change in Vision, Double Vision Thyroid: Positive: Tremor, Primary Hypothyroidism, Weight Gain Negative: Thyroid Nodule, Cold Intolerance, Heat Intolerance, Sweatiness, Primary Hyperthyroidism, Weight Loss Pulmonary: Positive: Respiratory Distress, Shortness of Breath, Exercise Intolerance Negative: Cough, Sputum, Hemoptysis, Wheezing, Asthma, Home Oxygen Cardiology: Positive: Chest Pain, Shortness of Breath, Swelling of Ankles, Edema Negative: Palpitations, Peripheral Vascular Dis, Faintness, Syncope, Claudication, Paroxysmal Nocturnal Dyspnea, Orthopnea Gastroenterology: Negative: Abdominal Pain, Nausea, Vomiting, Anorexia Genital - Urinary: Negative: Dysuria, Hematuria Musculoskeletal: Negative: Joint Pain, Joint Stiffness, Osteoporosis Endocrinology: Positive: Obesity Negative: Thyroid Problems, Diabetic Foot Ulcers, Calluses, Polydipsia, Polyuria Hematologic/Lymphatic: Negative: Anemia, Easy Brusing, Hx Leukemia, Hx Lymphoma, Use of Anticoagulant Neurology: Negative: Headaches, Migraines, Change in Vision, Diplopia, Dizziness, Change in Speech, Change in Sphincter Function, Hx of Stroke\TIA, Hx Seizures Psychiatry: Positive: Unusual Fatigue Allergic/Immunologic: Negative: Hx HIV, Immunocompromise Review of Systems Statement: All other review of systems negative, unless stated above. Objective Vital Signs: Temp Pulse Resp BP Pulse Ox 98.6 F 61 16 138/71 96 04/24/17 15:37 04/24/17 15:37 04/24/17 17:15 04/24/17 15:37 04/24/17 15:37 Oxygen Devices in Use Now: None Appearance: nad, pleasant Neck: NL Appearance and Movements; NL JVP, Trachea Midline Respiratory: Symmetrical Chest Expansion and Respiratory Effort, Clear to Auscultation Cardiovascular: NL Sounds; No Murmurs; No JVD, RRR, No Edema, - - pacemaker in place Abdominal: NL Sounds; No Tenderness; No Distention Extremities: No Edema, No Clubbing, Cyanosis Skin: No Rash or Ulcers Neurological: Alert and Oriented x 3 Laboratory Results: 04/24/17 11:40 04/25/17 09:20 INR (Anticoag Therapy) 0.98 (0.89-1.11) 04/23/17 21:20 APTT 27.2 seconds (26.0-36.3) 04/23/17 21:20 Total Bilirubin 0.70 mg/dL (0.2-1.0) 04/23/17 15:24 AST 81 U/L (13-39) H 04/23/17 15:24 ALT 57 U/L (7-52) H 04/23/17 15:24 Alkaline Phosphatase 94 U/L (34-104) 04/23/17 15:24 CK-MB (CK-2) 17.0 ng/mL (0.6-6.3) H 04/23/17 15:24 Total Protein 7.3 g/dL (6.4-8.9) 04/23/17 15:24 Albumin 3.9 g/dL (3.2-5.2) 04/23/17 15:24 Globulin 3.4 g/dL (2-4) 04/23/17 15:24 Albumin/Globulin Ratio 1.1 (1-3) 04/23/17 15:24 TSH 0.01 mcIU/mL (0.34-5.60) L 04/23/17 15:24 04/23/17 04/23/17 04/24/17 15:24 21:20 01:23 Troponin I 0.12 H* 0.03 0.03 10/2015 [facility]: cTnI 0.018 to 0.019 Diagnostic Imaging: Cardiac Testing: Cardiac catheterization - (10/26/2015) Indication: Chest pain, detectable troponin , abnormal EKG. Dr. Cervantes at [facility] via right radial. No significant CAD, LVEF 55-60% Cardiac catheterization - (08/09/2004) Indication: Pericarditis with persistent anterolateral T wave inversion, stress test wtih anterior ischemia. Dr. Rothman at [facility] right femoral, LVEDP 14 mmHg, LVEF 64%, mild non- obstructive CAD EKG - (03/14/2016) NSR, LVH with repolarization abnormalities Echocardiogram - (07/07/2015) Technically difficult study, LVEF 55-60%, mild-mod LVH, mild-mod LA dilation, RV not well visualized, no significant valvular abnormalities, mild pHTN Assessment/Plan I am unsure the nature of Miriam's recurrent episodes as described above. There is no evidence of a type 1 plaque disruption [place] as outlined in HPI. It may have been ? esophageal or coronary spasm pain induced vagal syncope but this is uncertain. - Would stop propanolol (was not helping with tremors) and start diltiazem 180 mg PO daily (ordered) and uptitrate this anti-spasm medication preferentially until BP controlled - Apparently has a history of peptic ulcer disease per her account, would stop primary prevention aspirin in case making worse (ordered) - Continue primary prevention statin, would use atorvastatin and not zocor while on diltiazem - Would need diuretic restarted at some point - Agree with evaluation for assisted living facility Thank you for allowing me to participate in the cardiovascular care of this patient. Please do not hesitate to contact me with questions or concerns.
--- NOTE | 2017-04-24 18:43 | PROCNOTE ---
Cardiology Procedure Note I-DISPO dual chamber pacemaker Implant 02/18/2012 Dr. Hyde Presenting rhythm NSR Battery life > 5 years Threshold, sensitivities, impedence satisfactory, please refer to paper copy of print 93% -VS 6% [employer] 1% [employer] No mode switches, no sustained arrhythmias Impression: Normal functioning dual chamber pacemaker
[2017-04-24] MEDS: Atorvastatin* 20 MG TAB PO SCH (20:08)
[2017-04-25] MEDS: oxyCODONE TAB* 5 MG TAB PO PRN ×5 (02:00→22:43)
[2017-04-25] MEDS: NS 0.9% 1000 ML* 1,000 ML IV SCH ×2 (02:16→10:59)
[2017-04-25] MEDS: HYDROmorphone INJ* 1 MG/ML CARPUJECT SYRINGE IV SLOW PU PRN ×4 (03:56→17:09)
[2017-04-25] MEDS ORDERED: oxyCODONE TAB* 5 MG TAB PO ONE (05:40)
[2017-04-25] MEDS: Heparin VIAL(*) 5000 UNITS/ML VIAL (FIVE THOUSAND) SUBCUT SCH ×3 (05:44→22:00)
[2017-04-25] MEDS: LORazepam TAB(*) 0.5 MG PO PRN ×4 (07:47→22:42)
[2017-04-25] MEDS: Insulin LISPRO* 1 UNITS UNIT SUBCUT SCH ×3 (09:04→18:22)
[2017-04-25] MEDS: Cyclobenzaprine TAB* 10 MG PO PRN ×2 (09:05→16:33)
[2017-04-25] MEDS: Diltiazem CD CAP* 180 MG PO SCH (09:09)
[2017-04-25 10:34] LABS: BUN/Creatinine Ratio 20.5 (8-20); Calcium 8.3 mg/dL (8.6-10.3); EGFR African American 103.2 (>60); EGFR Non-African American 80.3 (>60); Potassium 4.4 mmol/L (3.5-5.0)
--- NOTE | 2017-04-25 14:52 | PN ---
Subjective Date of Service: 04/25/17 Interval History: Patient continues to complain of severe R hip pain. She feels and hears a "pop " with position changes. Most of the pain is concentrated to the lateral hip. Objective Active Medications: Acetaminophen (Tylenol Tab*) 650 mg PO Q4H PRN PRN Reason: FEVER/PAIN Last Admin: 04/24/17 15:19 Dose: 650 mg Atorvastatin Calcium (Lipitor*) 20 mg PO BEDTIME [facility] Last Admin: 04/24/17 20:08 Dose: 20 mg Cyclobenzaprine HCl (Flexeril Tab*) 10 mg PO TID PRN PRN Reason: SPASMS Last Admin: 04/25/17 09:05 Dose: 10 mg Dextrose (D50w Syringe 50 Ml*) 12.5 gm IV PUSH .FOR FS < 60 - SS PRN PRN Reason: FS < 60 Diltiazem HCl (Cardizem Cd Cap*) 180 mg PO DAILY [facility] Last Admin: 04/25/17 09:09 Dose: 180 mg Heparin Sodium (Porcine) (Heparin Vial(*)) 5,000 units SUBCUT Q8HR [facility] Last Admin: 04/25/17 14:12 Dose: 5,000 units Hydromorphone HCl (Dilaudid Injic*) 0.5 mg IV SLOW PU Q4H PRN PRN Reason: PAIN Last Admin: 04/25/17 12:44 Dose: 0.5 mg Insulin Human Lispro (Humalog*) 0 units SUBCUT AC [facility] PRN Reason: Protocol Last Admin: 04/25/17 12:43 Dose: 2 units Lidocaine (Lidoderm 5% Patch*) 1 patch TRANSDERM DAILY [facility] Lorazepam (Ativan Tab(*)) 1 mg PO QID PRN PRN Reason: ANXIETY Last Admin: 04/25/17 07:47 Dose: 1 mg Ondansetron HCl (Zofran Inj*) 4 mg IV Q6H PRN PRN Reason: NAUSEA Oxycodone HCl (Roxycodone Tab*) 15 mg PO Q4H PRN PRN Reason: PAIN Last Admin: 04/25/17 14:12 Dose: 15 mg Pharmacy Profile Note (Lidocaine Patch Remove*) 1 note N/A 2100 [facility] Polyethylene Glycol/Electrolytes (Miralax*) 17 gm PO DAILY PRN PRN Reason: CONSTIPATION Zolpidem Tartrate (Ambien Tab*) 10 mg PO BEDTIME PRN PRN Reason: SLEEP Last Admin: 04/23/17 22:26 Dose: 10 mg Vital Signs: Temp Pulse Resp BP Pulse Ox 98.2 F 77 16 147/70 98 04/25/17 08:15 04/25/17 09:09 04/25/17 14:12 04/25/17 08:15 04/25/17 08:15 Oxygen Devices in Use Now: None Appearance: Slightly uncomfortable 62 yo female in NAD Respiratory: Symmetrical Chest Expansion and Respiratory Effort, Clear to Auscultation Cardiovascular: NL Sounds; No Murmurs; No JVD, RRR Abdominal: NL Sounds; No Tenderness; No Distention Extremities: - - TTP over R lateral hip Skin: No Rash or Ulcers Neurological: Alert and Oriented x 3 Result Diagrams: 04/24/17 11:40 04/25/17 09:20 Additional Lab and Data: . Diagnostic Imaging: XR hip/pelvis - NAD CTA chest - No PE CT abd/pelvis - No fx or other acute process Assess/Plan/Problems-Billing Assessment: This is a 62 yo obese female with multiple medical problems including DM, chronic pain, HTN, hypothyroidism, h/o DVT and melanoma who presented after an acute syncopal episode and associated rhabdomyolysis. - Patient Problems (1) Rhabdomyolysis Comment: Due to prolonged period of time of the ground CPK improving No renal impairment Can stop IVF at this time (2) Syncope Comment: Unclear etiology Pacer interrogation was benign Echo from 01/2017 was essentially WNL Carotid US shows <50% stenosis bilaterally Orthostatics were positive at admission, but in the setting of acute rhabdo Appreciate cardiology consultation, recommendation made to stop propanolol and start diltiazem (3) Demand ischemia Comment: Initial troponin 0.12, normal on serial exam Likely demand related to rhabdo No c/o CP or acute ischemic changes on EKG (4) Pacemaker Comment: h/o sick sinus syndrome Interrogation benign (5) Anxiety Comment: Cont home medications Anxious about returning home, but no severe, acute symptoms (6) Chronic pain Comment: Continued complaints of severe R hip pain Will repeat CT of the R hip NSAIDs contraindicated due to h/o GIB, trial Lidoderm patch Continue home oxycodone (7) Diabetes Comment: SS coverage during her hospital stay (8) Hypertension Comment: Now slightly hypertensive Resume losartan (9) Hypothyroidism Comment: Continue Synthroid at home dose. (10) DVT prophylaxis Comment: SQ Heparin (11) Full code status Status and Disposition: Inpatient. She will require MARCIA, and should consider assisted living. She has discussed this with SW. Anticipate dc in 1-2, or when rehab bed is available
--- NOTE | 2017-04-25 15:46 | RAD ---
Indication: Reevaluate RIGHT hip. Recent trauma. Comparison: April 23, 2017 CT. Technique: Multidetector CT pelvis without contrast. Multiplanar reformation with bone algorithm. Report: Artifact from RIGHT total hip prosthesis and bilateral lumbar sacral spinal fixation rods. Grade 3 L5-S1 anterolisthesis without change. The prosthetic RIGHT hip is normally located. No periprosthetic fracture or gross stigmata of prosthesis loosening. The [place] LEFT hip is normally located and without evidence for fracture. Mild osteoarthritis of the LEFT hip. Moderate degenerative arthropathy of the pubic symphysis. Moderate degenerative arthropathy at the sacroiliac joints. Skeletal muscle atrophy most prominent at the RIGHT gluteus medius and minimus muscles where it is moderately severe. Mild diverticulosis of the sigmoid colon without findings of diverticulitis. Post hysterectomy. Unremarkable adnexal regions. Negative for free pelvic fluid. Negative for lymphadenopathy. IMPRESSION: No evidence for pelvic or proximal femur fracture or RIGHT hip prosthesis loosening or dislocation. Negative for soft tissue plane hematoma.
[2017-04-25] MEDS: Lidocaine PATCH 5%* 1 PATCH TRANSDERM SCH (16:30)
[2017-04-25] MEDS: Acetaminophen TAB* 325 MG PO PRN (16:32)
[2017-04-25] MEDS: Lidocaine Patch REMOVE* 1 NOTE MISC SCH (22:00)
[2017-04-25] MEDS: Atorvastatin* 20 MG TAB PO SCH (22:01)
[2017-04-25] MEDS: Zolpidem TAB* 10 MG PO PRN (22:43)
[2017-04-26] MEDS: HYDROmorphone INJ* 1 MG/ML CARPUJECT SYRINGE IV SLOW PU PRN ×4 (02:30→20:54)
[2017-04-26] MEDS: oxyCODONE TAB* 5 MG TAB PO PRN ×5 (03:54→21:41)
[2017-04-26] MEDS: Levothyroxine TAB* 75 MCG TAB PO SCH (05:38)
[2017-04-26] MEDS: Heparin VIAL(*) 5000 UNITS/ML VIAL (FIVE THOUSAND) SUBCUT SCH ×3 (05:38→21:44)
[2017-04-26 05:47] LABS: Hematocrit 34 % (35-47); Hemoglobin 11.1 g/dl (12.0-16.0); Mean Corpuscular HGB Conc 33 g/dl (31-36); Mean Corpuscular Hemoglobin 29 pg (27-31); Mean Corpuscular Volume 89 fL (80-97); Mean Platelet Volume 8 um3 (7.4-10.4); Red Cell Distribution Width 18 % (10.5-15); White Blood Count 6.1 10^3/ul (3.5-10.8)
[2017-04-26] MEDS: Acetaminophen TAB* 325 MG PO PRN (05:51)
[2017-04-26] MEDS: LORazepam TAB(*) 0.5 MG PO PRN ×4 (05:51→21:40)
[2017-04-26] MEDS: Insulin LISPRO* 1 UNITS UNIT SUBCUT SCH ×3 (08:16→17:31)
[2017-04-26] MEDS: Diltiazem CD CAP* 180 MG PO SCH (08:24)
[2017-04-26] MEDS: Losartan TAB* 25 MG PO SCH (08:26)
[2017-04-26] MEDS: Lidocaine PATCH 5%* 1 PATCH TRANSDERM SCH (08:26)
[2017-04-26 10:18] LABS: BUN/Creatinine Ratio 21.7 (8-20); EGFR African American 110.2 (>60); EGFR Non-African American 85.7 (>60); Potassium 4.5 mmol/L (3.5-5.0)
--- NOTE | 2017-04-26 11:00 | PN ---
Subjective Date of Service: 04/26/17 Interval History: HOSPITALIST PROGRESS NOTE Patient seen and examined at bedside. Right hip pain is unchanged. She denies CP, but states she woke up in the middle of the night feeling anxious and Telemetry at that time showed 10 seconds of SVT. [place] anxious again this AM, but no significant arrhythmias on tele at that time. Family History: Unchanged from Admission Social History: Unchanged from Admission Past Medical History: Unchanged from Admission Objective Active Medications: Acetaminophen (Tylenol Tab*) 650 mg PO Q4H PRN PRN Reason: FEVER/PAIN Last Admin: 04/26/17 05:51 Dose: 650 mg Atorvastatin Calcium (Lipitor*) 20 mg PO BEDTIME [facility] Last Admin: 04/25/17 22:01 Dose: 20 mg Cyclobenzaprine HCl (Flexeril Tab*) 10 mg PO TID PRN PRN Reason: SPASMS Last Admin: 04/25/17 16:33 Dose: 10 mg Dextrose (D50w Syringe 50 Ml*) 12.5 gm IV PUSH .FOR FS < 60 - SS PRN PRN Reason: FS < 60 Diltiazem HCl (Cardizem Cd Cap*) 180 mg PO DAILY [facility] Last Admin: 04/26/17 08:24 Dose: 180 mg Heparin Sodium (Porcine) (Heparin Vial(*)) 5,000 units SUBCUT Q8HR [facility] Last Admin: 04/26/17 05:38 Dose: 5,000 units Hydromorphone HCl (Dilaudid Injic*) 0.5 mg IV SLOW PU Q4H PRN PRN Reason: PAIN Last Admin: 04/26/17 08:13 Dose: 0.5 mg Insulin Human Lispro (Humalog*) 0 units SUBCUT AC [facility] PRN Reason: Protocol Last Admin: 04/26/17 08:16 Dose: Not Given Levothyroxine Sodium (Synthroid Tab*) 75 mcg PO DAILY@0600 [facility] Last Admin: 04/26/17 05:38 Dose: 75 mcg Lidocaine (Lidoderm 5% Patch*) 1 patch TRANSDERM DAILY [facility] Last Admin: 04/26/17 08:26 Dose: 1 patch Lorazepam (Ativan Tab(*)) 1 mg PO QID PRN PRN Reason: ANXIETY Last Admin: 04/26/17 10:45 Dose: 1 mg Losartan Potassium (Cozaar Tab*) 50 mg PO DAILY [facility] Last Admin: 04/26/17 08:26 Dose: 50 mg Ondansetron HCl (Zofran Inj*) 4 mg IV Q6H PRN PRN Reason: NAUSEA Oxycodone HCl (Roxycodone Tab*) 15 mg PO Q4H PRN PRN Reason: PAIN Last Admin: 04/26/17 09:20 Dose: 15 mg Pharmacy Profile Note (Lidocaine Patch Remove*) 1 note N/A 2100 [facility] Last Admin: 04/25/17 22:00 Dose: 1 note Polyethylene Glycol/Electrolytes (Miralax*) 17 gm PO DAILY PRN PRN Reason: CONSTIPATION Zolpidem Tartrate (Ambien Tab*) 10 mg PO BEDTIME PRN PRN Reason: SLEEP Last Admin: 04/25/17 22:43 Dose: 10 mg Vital Signs 04/26/17 04/26/17 04/26/17 06:05 08:09 08:13 Temperature 98.6 F Pulse Rate 62 Respiratory 20 16 16 Rate Blood Pressure 173/75 (mmHg) O2 Sat by Pulse 93 Oximetry Oxygen Devices in Use Now: None Appearance: Morbid obese lady lying in bed in NAD. Eyes: No Scleral Icterus Ears/Nose/Mouth/Throat: Mucous Membranes Moist Neck: Trachea Midline Respiratory: Symmetrical Chest Expansion and Respiratory Effort, Clear to Auscultation Cardiovascular: RRR - Normal S1 and S2 Abdominal: NL Sounds; No Tenderness; No Distention - obese Extremities: - - Old surgical scar on left knee Neurological: Alert and Oriented x 3, NL Muscle Strength and Tone Result Diagrams: 04/26/17 05:24 04/26/17 05:16 Assess/Plan/Problems-Billing Assessment: Mrs. Barragan is a 62 yo F with PMH of morbid obesity, type 2 DM, chronic pain, HTN , HLD, hypothyroidism, h/o DVT, s/p pacemaker who presented to ED after syncopal episode, found to have rhabdomyolysis. - Patient Problems (1) Rhabdomyolysis Comment: - Mild rhabdomyolysis. - CPK trending down. (2) Syncope Comment: - Unclear etiology. - Pacer interrogation did not show significant arrhythmias. - Echo showed EF 55-60% with no wall motion abnormalities. - Carotid US shows <50% stenosis bilaterally. - Cardiology input appreciated - thought it could be vasovagal - recommended stopping Propranolol and starting Cardizem. (3) Troponin level elevated Comment: - Troponin was 0.12 on admission and trended down. - Likely associated with rhabdo. - Cardio input appreciated. (4) Anxiety Comment: - Continue Lorazepam. (5) Right hip pain Comment: - CT was negative for fracture. - Continue pain management and PT as tolerated. (6) Diabetes Comment: - Continue Lispro SS. (7) DVT prophylaxis Comment: - SQ Heparin. (8) Full code status Status and Disposition: Inpatient. Plan for SNF placement for rehab.
[2017-04-26] MEDS: Atorvastatin* 20 MG TAB PO SCH (20:54)
[2017-04-26] MEDS: Zolpidem TAB* 10 MG PO PRN (21:42)
[2017-04-26] MEDS: Lidocaine Patch REMOVE* 1 NOTE MISC SCH (21:43)
[2017-04-27] MEDS: Acetaminophen TAB* 325 MG PO PRN ×2 (01:11→08:12)
[2017-04-27] MEDS: HYDROmorphone INJ* 1 MG/ML CARPUJECT SYRINGE IV SLOW PU PRN ×4 (01:11→15:42)
[2017-04-27] MEDS: oxyCODONE TAB* 5 MG TAB PO PRN ×5 (03:02→21:29)
[2017-04-27] MEDS: LORazepam TAB(*) 0.5 MG PO PRN ×2 (03:02→07:17)
[2017-04-27] MEDS: Levothyroxine TAB* 75 MCG TAB PO SCH (05:27)
[2017-04-27] MEDS: Heparin VIAL(*) 5000 UNITS/ML VIAL (FIVE THOUSAND) SUBCUT SCH ×3 (05:27→21:23)
[2017-04-27] MEDS: Cyclobenzaprine TAB* 10 MG PO PRN ×2 (08:12→14:42)
[2017-04-27] MEDS: Losartan TAB* 25 MG PO SCH (08:12)
[2017-04-27] MEDS: Insulin LISPRO* 1 UNITS UNIT SUBCUT SCH ×3 (08:13→17:53)
[2017-04-27] MEDS: Lidocaine PATCH 5%* 1 PATCH TRANSDERM SCH (08:13)
[2017-04-27] MEDS: Diltiazem CD CAP* 240 MG PO SCH (08:13)
[2017-04-27] MEDS: Polyethylene Glycol 3350* 17 GM PACKET PO PRN (14:43)
[2017-04-27] MEDS: LORazepam TAB(*) 0.5 MG PO SCH ×2 (15:44→21:23)
--- NOTE | 2017-04-27 16:38 | PN ---
Subjective Date of Service: 04/27/17 Interval History: HOSPITALIST PROGRESS NOTE Patient seen and examined at bedside. She had no further episodes of palpitations. Main complaint is right hip pain. Family History: Unchanged from Admission Social History: Unchanged from Admission Past Medical History: Unchanged from Admission Objective Active Medications: Acetaminophen (Tylenol Tab*) 650 mg PO Q4H PRN PRN Reason: FEVER/PAIN Last Admin: 04/27/17 08:12 Dose: 650 mg Atorvastatin Calcium (Lipitor*) 20 mg PO BEDTIME [facility] Last Admin: 04/26/17 20:54 Dose: 20 mg Cyclobenzaprine HCl (Flexeril Tab*) 10 mg PO TID PRN PRN Reason: SPASMS Last Admin: 04/27/17 14:42 Dose: 10 mg Dextrose (D50w Syringe 50 Ml*) 12.5 gm IV PUSH .FOR FS < 60 - SS PRN PRN Reason: FS < 60 Diltiazem HCl (Cardizem Cd Cap*) 240 mg PO DAILY [facility] Last Admin: 04/27/17 08:13 Dose: 240 mg Heparin Sodium (Porcine) (Heparin Vial(*)) 5,000 units SUBCUT Q8HR [facility] Last Admin: 04/27/17 14:43 Dose: 5,000 units Hydromorphone HCl (Dilaudid Injic*) 0.5 mg IV SLOW PU Q4H PRN PRN Reason: PAIN Last Admin: 04/27/17 15:42 Dose: 0.5 mg Insulin Human Lispro (Humalog*) 0 units SUBCUT AC [facility] PRN Reason: Protocol Last Admin: 04/27/17 11:47 Dose: Not Given Levothyroxine Sodium (Synthroid Tab*) 75 mcg PO DAILY@0600 [facility] Last Admin: 04/27/17 05:27 Dose: 75 mcg Lidocaine (Lidoderm 5% Patch*) 1 patch TRANSDERM DAILY [facility] Last Admin: 04/27/17 08:13 Dose: 1 patch Lorazepam (Ativan Tab(*)) 1 mg PO 0800,1200,1600,2000 [facility] Last Admin: 04/27/17 15:44 Dose: 1 mg Losartan Potassium (Cozaar Tab*) 50 mg PO DAILY [facility] Last Admin: 04/27/17 08:12 Dose: 50 mg Ondansetron HCl (Zofran Inj*) 4 mg IV Q6H PRN PRN Reason: NAUSEA Oxycodone HCl (Roxycodone Tab*) 15 mg PO Q4H PRN PRN Reason: PAIN Last Admin: 04/27/17 15:44 Dose: 15 mg Pharmacy Profile Note (Lidocaine Patch Remove*) 1 note N/A [facility] Last Admin: 04/26/17 21:43 Dose: 1 note Polyethylene Glycol/Electrolytes (Miralax*) 17 gm PO DAILY PRN PRN Reason: CONSTIPATION Last Admin: 04/27/17 14:43 Dose: 17 gm Zolpidem Tartrate (Ambien Tab*) 10 mg PO BEDTIME PRN PRN Reason: SLEEP Last Admin: 04/26/17 21:42 Dose: 10 mg Vital Signs 04/27/17 04/27/17 04/27/17 15:41 15:42 15:44 Temperature 98.8 F Pulse Rate 64 Respiratory 20 20 20 Rate Blood Pressure 120/53 (mmHg) O2 Sat by Pulse 92 Oximetry Oxygen Devices in Use Now: None Appearance: Pleasant obese lady sitting up in a recliner in NAD. Eyes: No Scleral Icterus Ears/Nose/Mouth/Throat: Mucous Membranes Moist Neck: Trachea Midline Respiratory: Symmetrical Chest Expansion and Respiratory Effort, Clear to Auscultation Cardiovascular: RRR - Normal S1 and S2 Neurological: Alert and Oriented x 3, NL Muscle Strength and Tone Result Diagrams: 04/26/17 05:24 04/26/17 05:16 Assess/Plan/Problems-Billing Assessment: Mrs. Barragan is a 62 yo F with PMH of morbid obesity, type 2 DM, chronic pain, HTN , HLD, hypothyroidism, h/o DVT, s/p pacemaker who presented to ED after syncopal episode, found to have rhabdomyolysis. - Patient Problems (1) Rhabdomyolysis Comment: - Mild rhabdomyolysis. - CPK trending down. (2) Syncope Comment: - Unclear etiology. - Pacer interrogation did not show significant arrhythmias. - Echo showed EF 55-60% with no wall motion abnormalities. - Carotid US shows <50% stenosis bilaterally. - Cardiology input appreciated - thought it could be vasovagal - recommended stopping Propranolol and starting Cardizem. (3) Troponin level elevated Comment: - Troponin was 0.12 on admission and trended down. - Likely associated with rhabdo. - Cardio input appreciated. (4) SVT (supraventricular tachycardia) Comment: - The patient had one episode of symptomati SVT around 2AM - woke up feeling her heart beating fast and had 10 seconds of SVT documented on Tele. - Suspect sleep apnea playing a role - will check overnight oximetry. (5) Anxiety Comment: - Continue Lorazepam. (6) Right hip pain Comment: - Xray and CT was negative for fracture, but patient states she can feel her hip "popping out". - Ortho consult requested. - Continue pain management and PT as tolerated. (7) Diabetes Comment: - Continue Lispro SS. (8) DVT prophylaxis Comment: - SQ Heparin. (9) Full code status Status and Disposition: Inpatient. Plan for SNF placement for rehab.
[2017-04-27] MEDS: Atorvastatin* 20 MG TAB PO SCH (21:22)
[2017-04-27] MEDS: Lidocaine Patch REMOVE* 1 NOTE MISC SCH (21:23)
[2017-04-27] MEDS: Zolpidem TAB* 10 MG PO PRN (21:29)
[2017-04-28] MEDS: HYDROmorphone INJ* 1 MG/ML CARPUJECT SYRINGE IV SLOW PU PRN ×5 (00:22→20:19)
[2017-04-28] MEDS: oxyCODONE TAB* 5 MG TAB PO PRN ×4 (02:47→22:07)
[2017-04-28] MEDS ORDERED: hydrALAZINE IV* 20 MG/ML VIAL IV SLOW PU PRN (04:31)
[2017-04-28] MEDS: Heparin VIAL(*) 5000 UNITS/ML VIAL (FIVE THOUSAND) SUBCUT SCH ×3 (05:08→22:07)
[2017-04-28] MEDS: Levothyroxine TAB* 75 MCG TAB PO SCH (05:08)
[2017-04-28] MEDS: Cyclobenzaprine TAB* 10 MG PO PRN (08:45)
[2017-04-28] MEDS: Losartan TAB* 25 MG PO SCH (08:46)
[2017-04-28] MEDS: LORazepam TAB(*) 0.5 MG PO SCH ×4 (08:47→20:19)
[2017-04-28] MEDS: Acetaminophen TAB* 325 MG PO PRN (08:48)
[2017-04-28] MEDS: Diltiazem CD CAP* 240 MG PO SCH (08:48)
[2017-04-28] MEDS: Insulin LISPRO* 1 UNITS UNIT SUBCUT SCH ×3 (08:49→18:19)
[2017-04-28] MEDS: Lidocaine PATCH 5%* 1 PATCH TRANSDERM SCH (08:50)
[2017-04-28] MEDS: Polyethylene Glycol 3350* 17 GM PACKET PO PRN (09:42)
--- NOTE | 2017-04-28 13:02 | PN ---
Subjective Date of Service: 04/28/17 Interval History: HOSPITALIST PROGRESS NOTE Patient seen and examined at bedside. Offers no new complaints, pain is unchanged. Family History: Unchanged from Admission Social History: Unchanged from Admission Past Medical History: Unchanged from Admission Objective Active Medications: Acetaminophen (Tylenol Tab*) 650 mg PO Q4H PRN PRN Reason: FEVER/PAIN Last Admin: 04/28/17 08:48 Dose: 650 mg Atorvastatin Calcium (Lipitor*) 20 mg PO BEDTIME [facility] Last Admin: 04/27/17 21:22 Dose: 20 mg Cyclobenzaprine HCl (Flexeril Tab*) 10 mg PO TID PRN PRN Reason: SPASMS Last Admin: 04/28/17 08:45 Dose: 10 mg Dextrose (D50w Syringe 50 Ml*) 12.5 gm IV PUSH .FOR FS < 60 - SS PRN PRN Reason: FS < 60 Diltiazem HCl (Cardizem Cd Cap*) 240 mg PO DAILY [facility] Last Admin: 04/28/17 08:48 Dose: 240 mg Heparin Sodium (Porcine) (Heparin Vial(*)) 5,000 units SUBCUT Q8HR [facility] Last Admin: 04/28/17 05:08 Dose: 5,000 units Hydralazine HCl (Apresoline Iv*) 5 mg IV SLOW PU Q6H PRN PRN Reason: BLOOD PRESSURE Last Admin: 04/28/17 05:08 Dose: 5 mg Hydromorphone HCl (Dilaudid Injic*) 0.5 mg IV SLOW PU Q4H PRN PRN Reason: PAIN Last Admin: 04/28/17 09:44 Dose: 0.5 mg Insulin Human Lispro (Humalog*) 0 units SUBCUT AC [facility] PRN Reason: Protocol Last Admin: 04/28/17 12:55 Dose: Not Given Levothyroxine Sodium (Synthroid Tab*) 75 mcg PO DAILY@0600 [facility] Last Admin: 04/28/17 05:08 Dose: 75 mcg Lidocaine (Lidoderm 5% Patch*) 1 patch TRANSDERM DAILY [facility] Last Admin: 04/28/17 08:50 Dose: 1 patch Lorazepam (Ativan Tab(*)) 1 mg PO 0800,1200,1600,2000 [facility] Last Admin: 04/28/17 12:13 Dose: 1 mg Losartan Potassium (Cozaar Tab*) 100 mg PO DAILY [facility] Last Admin: 04/28/17 08:46 Dose: 100 mg Ondansetron HCl (Zofran Inj*) 4 mg IV Q6H PRN PRN Reason: NAUSEA Oxycodone HCl (Roxycodone Tab*) 15 mg PO Q4H PRN PRN Reason: PAIN Last Admin: 04/28/17 12:12 Dose: 15 mg Pharmacy Profile Note (Lidocaine Patch Remove*) 1 note N/A 2100 [facility] Last Admin: 04/27/17 21:23 Dose: 1 note Polyethylene Glycol/Electrolytes (Miralax*) 17 gm PO DAILY PRN PRN Reason: CONSTIPATION Last Admin: 04/28/17 09:42 Dose: 17 gm Zolpidem Tartrate (Ambien Tab*) 10 mg PO BEDTIME PRN PRN Reason: SLEEP Last Admin: 04/27/17 21:29 Dose: 10 mg Vital Signs 04/28/17 04/28/17 04/28/17 07:31 08:45 08:47 Temperature 98.0 F Pulse Rate 75 Respiratory 18 18 18 Rate Blood Pressure 146/71 (mmHg) O2 Sat by Pulse 95 Oximetry Oxygen Devices in Use Now: None Appearance: Pleasant morbid obese lady lying in bed in NAD. Eyes: No Scleral Icterus Ears/Nose/Mouth/Throat: Mucous Membranes Moist Neck: Trachea Midline Respiratory: Symmetrical Chest Expansion and Respiratory Effort, Clear to Auscultation Cardiovascular: RRR - Normal S1 and S2 Neurological: Alert and Oriented x 3, NL Muscle Strength and Tone Result Diagrams: 04/26/17 05:24 04/26/17 05:16 Assess/Plan/Problems-Billing Assessment: Mrs. Barragan is a 62 yo F with PMH of morbid obesity, type 2 DM, chronic pain, HTN , HLD, hypothyroidism, h/o DVT, s/p pacemaker who presented to ED after syncopal episode, found to have rhabdomyolysis. - Patient Problems (1) Rhabdomyolysis Comment: - Mild rhabdomyolysis. - CPK trending down. (2) Syncope Comment: - Unclear etiology. - Pacer interrogation did not show significant arrhythmias. - Echo showed EF 55-60% with no wall motion abnormalities. - Carotid US shows <50% stenosis bilaterally. - Cardiology input appreciated - thought it could be vasovagal - recommended stopping Propranolol and starting Cardizem. (3) Troponin level elevated Comment: - Troponin was 0.12 on admission and trended down. - Likely associated with rhabdo. - Cardio input appreciated. (4) SVT (supraventricular tachycardia) Comment: - The patient had one episode of symptomati SVT around 2AM - woke up feeling her heart beating fast and had 10 seconds of SVT documented on Tele. - Suspect sleep apnea playing a role - had 17 continuous minutes with SO2<89 - will start supplemental O2 overnight. She will need formal sleep study as outpatient. (5) Anxiety Comment: - Continue Lorazepam. (6) Right hip pain Comment: - Xray and CT was negative for fracture, but patient states she can feel her hip "popping out". - Awaiting Ortho consult. - Continue pain management and PT as tolerated. (7) Diabetes Comment: - Continue Lispro SS. (8) DVT prophylaxis Comment: - SQ Heparin. (9) Full code status Status and Disposition: Inpatient. Plan for SNF placement for rehab.
--- NOTE | 2017-04-28 17:13 | CONS ---
ORTHOPEDIC CONSULT: DATE OF CONSULT: 04/28/17 CHIEF COMPLAINT: Right hip. HISTORY OF PRESENT ILLNESS: Ms. Barragan is a 62-year-old female who was admitted to the hospital on 04/23/17 after falling. It is unsure if she was having palpitations, which caused her syncope or there was something else going on and she is being worked up for that. I received a call yesterday evening for an orthopedic consult, as Ms. Barragan was complaining of the hip popping in and out. She had the right hip replaced in [place] in 1999, but has had continued troubles with it. She had seen Dr. 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 Ms. Barragan is concerned that the hip is popping out of place. She can recreate the pop when lying on her right side and then coming up into a sitting position to sit on the side of her bed. Initially, she said it was going on for 2 months , but then she also made a reference to having this popping troubles for 2 years , but it sounds like has been getting worse for the past 2 months. She already had pain 3 years ago when she had seen Dr. Sanderson because of the fascial defect as well as what sounds like chronic pain from her back. PAST MEDICAL HISTORY: Anxiety, diabetes, morbid obesity, hypertension, hypothyroidism. PAST SURGICAL HISTORY: Pacemaker placement, knee replacement, hip replacement, back surgery x4, right shoulder rotator cuff repair. MEDICATIONS: On admission: 1. Multivitamin. 2. Metformin 1 g p.o. b.i.d. 3. Zocor 40 mg p.o. q.h.s. 4. Propranolol 20 mg p.o. b.i.d. 5. MiraLAX 17 g daily as needed. 6. Ambien 10 mg p.o. q.h.s. p.r.n. 7. Avapro 150 mg daily. 8. Oxycodone 15 mg q.4 hours p.r.n. 9. Ativan 1 mg 4 times a day p.r.n. 10. Lasix 40 mg daily. 11. Synthroid 75 mcg daily. 12. Aspirin 81 mg daily. 13. Vitamin D3, 1000 units daily. ALLERGIES: METOPROLOL, PENICILLIN, CEFAZOLIN, SULFA, PROPOFOL, CELEXA, SONATA, and NSAIDS. FAMILY HISTORY: Noncontributory. SOCIAL HISTORY: She has a negative tobacco and a negative EtOH history. PHYSICAL EXAM: General: Mature, heavy female. No apparent distress. Initialy she was sitting in the chair, but she is able to stand and transfer to the bed on her own. She was then able to lay down on her right side and then come to a sitting position on the bed to demonstrate the snap Palpation over the hip finds a palpable fascial defect and she is tender as I palpate there. When lying on her right side and then sitting up, there is an audible thunk that I can hear and then repeating the maneuver with my hand present right on the side, I actually can palpate the band snapping over the greater trochanter. DIAGNOSTIC STUDIES/LAB DATA: X-rays and CT scan are available for review. Her right hip replacement has same good position that it was previously. There is no evidence of bony lysis or changes about the hip itself. ASSESSMENT: 1. Chronic pain. 2. Fascial defect. PLAN: She reports that this has been present for some time, but recently has been getting worse and for the past 2 months, has been quite problematic. It is clear that she jumps and it is painful when it occurs, but I am unsure if there is a solution for this. There is no orthopedic procedure I know of for this. I did have an idea about fixing this; specifically, I will see if I can talk with one of the general surgeons about whether a fascial graft (similar to what they use for abdominal hernia) is something that would be possible to use to repair this. Otherwise, I do not believe that we have much to offer her, but I will see if I can talk with one of the general surgeons. [id number]/[facility] #: [id number] [facility]AR[facility]
[2017-04-28] MEDS: Lidocaine Patch REMOVE* 1 NOTE MISC SCH (22:04)
[2017-04-28] MEDS: Atorvastatin* 20 MG TAB PO SCH (22:07)
[2017-04-28] MEDS: Zolpidem TAB* 10 MG PO PRN (22:08)
[2017-04-29] MEDS: oxyCODONE TAB* 5 MG TAB PO PRN ×5 (02:03→21:59)
[2017-04-29] MEDS: Levothyroxine TAB* 75 MCG TAB PO SCH (06:32)
[2017-04-29] MEDS: Heparin VIAL(*) 5000 UNITS/ML VIAL (FIVE THOUSAND) SUBCUT SCH ×3 (06:32→22:28)
[2017-04-29] MEDS: HYDROmorphone INJ* 1 MG/ML CARPUJECT SYRINGE IV SLOW PU PRN ×2 (06:32→11:02)
[2017-04-29 07:29] LABS: Hematocrit 50 % (35-47); Hemoglobin 16.5 g/dl (12.0-16.0); Mean Corpuscular HGB Conc 33 g/dl (31-36); Mean Corpuscular Hemoglobin 29 pg (27-31); Mean Corpuscular Volume 88 fL (80-97); Mean Platelet Volume 8 um3 (7.4-10.4); Red Blood Count 5.74 10^6/ul (4.0-5.4); Red Cell Distribution Width 18 % (10.5-15)
[2017-04-29 07:34] LABS: BUN/Creatinine Ratio 23.2 (8-20); Calcium 9.6 mg/dL (8.6-10.3); EGFR African American 110.2 (>60); EGFR Non-African American 85.7 (>60); Potassium 4.4 mmol/L (3.5-5.0)
--- NOTE | 2017-04-29 08:46 | PN ---
Subjective Date of Service: 04/29/17 Interval History: HOSPITALIST PROGRESS NOTE Patient seen and examined at bedside. States her pain is unchanged, but she appears to be more comfortable today. As per RN note, patient requested pain meds overnight and when she returned patient was already sleeping. Family History: Unchanged from Admission Social History: Unchanged from Admission Past Medical History: Unchanged from Admission Objective Active Medications: Acetaminophen (Tylenol Tab*) 650 mg PO Q4H PRN PRN Reason: FEVER/PAIN Last Admin: 04/28/17 08:48 Dose: 650 mg Atorvastatin Calcium (Lipitor*) 20 mg PO BEDTIME [facility] Last Admin: 04/28/17 22:07 Dose: 20 mg Cyclobenzaprine HCl (Flexeril Tab*) 10 mg PO TID PRN PRN Reason: SPASMS Last Admin: 04/28/17 08:45 Dose: 10 mg Dextrose (D50w Syringe 50 Ml*) 12.5 gm IV PUSH .FOR FS < 60 - SS PRN PRN Reason: FS < 60 Diltiazem HCl (Cardizem Cd Cap*) 240 mg PO DAILY [facility] Last Admin: 04/28/17 08:48 Dose: 240 mg Heparin Sodium (Porcine) (Heparin Vial(*)) 5,000 units SUBCUT Q8HR [facility] Last Admin: 04/29/17 06:32 Dose: 5,000 units Hydralazine HCl (Apresoline Iv*) 5 mg IV SLOW PU Q6H PRN PRN Reason: BLOOD PRESSURE Last Admin: 04/28/17 05:08 Dose: 5 mg Hydromorphone HCl (Dilaudid Injic*) 0.5 mg IV SLOW PU Q4H PRN PRN Reason: PAIN Last Admin: 04/29/17 06:32 Dose: 0.5 mg Insulin Human Lispro (Humalog*) 0 units SUBCUT AC [facility] PRN Reason: Protocol Last Admin: 04/28/17 18:19 Dose: Not Given Levothyroxine Sodium (Synthroid Tab*) 75 mcg PO DAILY@0600 [facility] Last Admin: 04/29/17 06:32 Dose: 75 mcg Lidocaine (Lidoderm 5% Patch*) 1 patch TRANSDERM DAILY [facility] Last Admin: 04/28/17 08:50 Dose: 1 patch Lorazepam (Ativan Tab(*)) 1 mg PO 0800,1200,1600,2000 [facility] Last Admin: 04/28/17 20:19 Dose: 1 mg Losartan Potassium (Cozaar Tab*) 100 mg PO DAILY [facility] Last Admin: 04/28/17 08:46 Dose: 100 mg Ondansetron HCl (Zofran Inj*) 4 mg IV Q6H PRN PRN Reason: NAUSEA Oxycodone HCl (Roxycodone Tab*) 15 mg PO Q4H PRN PRN Reason: PAIN Last Admin: 04/29/17 02:03 Dose: 15 mg Pharmacy Profile Note (Lidocaine Patch Remove*) 1 note N/A 2100 [facility] Last Admin: 04/28/17 22:04 Dose: 1 note Polyethylene Glycol/Electrolytes (Miralax*) 17 gm PO DAILY PRN PRN Reason: CONSTIPATION Last Admin: 04/28/17 09:42 Dose: 17 gm Zolpidem Tartrate (Ambien Tab*) 10 mg PO BEDTIME PRN PRN Reason: SLEEP Last Admin: 04/28/17 22:08 Dose: 10 mg Vital Signs - 8 hr 04/29/17 04/29/17 04/29/17 01:46 02:03 03:56 Temperature 98.1 F Pulse Rate 79 Respiratory 18 20 Rate Blood Pressure 127/84 (mmHg) O2 Sat by Pulse 94 95 Oximetry Oxygen Devices in Use Now: None Appearance: Morbid obese lady sitting up in a chair in [facility]. Eyes: No Scleral Icterus Ears/Nose/Mouth/Throat: Mucous Membranes Moist Neck: Trachea Midline Extremities: - - Trace edema Neurological: Alert and Oriented x 3, NL Muscle Strength and Tone Result Diagrams: 04/29/17 07:00 04/29/17 06:47 Assess/Plan/Problems-Billing Assessment: Mrs. Barragan is a 62 yo F with PMH of morbid obesity, type 2 DM, chronic pain, HTN , HLD, hypothyroidism, h/o DVT, s/p pacemaker who presented to ED after syncopal episode, found to have rhabdomyolysis. - Patient Problems (1) Right hip pain Comment: - Xray and CT was negative for fracture, but patient states she can feel her hip "popping out". - Ortho consult appreciated - patient had hip replacement done in [place] [address] Sanderson in 2013 for hip pain. 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 She has had pain and "popping sound" for years, but it became worse over the last 2 months and even worse after her fall. Dr. Villatoro d/w general surgery if mesh would be appropriate to correct the fascial defect, but the conclusion is she should be evaluated in a Tertiary center. Ortho office will arrange for outpatient evaluation. As per my conversation with Dr. Villatoro patient can bear weight as tolerated, should continue to work with PT. This is not an emergency procedure. It's elective and can be arranged as outpatient. - Explained she will not receive IV Dilaudid at [facility] and although she states her pain has not changed since admission, she does appear to be more comfortable. I requested consultation with Pain specialist (Dr. Al) to assist with a pain management regimen that does not include IV medications. - Patient is stable to be d/c to [facility] to continue her rehabilitation process. (2) Rhabdomyolysis Comment: - Mild rhabdomyolysis. - Resolved. (3) Syncope Comment: - Unclear etiology. - Pacer interrogation did not show significant arrhythmias. - Echo showed EF 55-60% with no wall motion abnormalities. - Carotid US shows <50% stenosis bilaterally. - Cardiology input appreciated - thought it could be vasovagal - recommended stopping Propranolol and adding Cardizem. (4) Troponin level elevated Comment: - Troponin was 0.12 on admission and trended down. - Likely associated with rhabdo. - Cardio input appreciated. (5) SVT (supraventricular tachycardia) Comment: - The patient had one episode of symptomatic SVT around 2AM on 04/27 - woke up feeling her heart beating fast and had 10 seconds of SVT documented on Tele. - Suspect sleep apnea playing a role - had 17 continuous minutes with SO2<89 - will start supplemental O2 overnight. She will need formal sleep study as outpatient so she can have CPAP. (6) Anxiety Comment: - Continue Lorazepam. (7) Diabetes Comment: - Controlled. - Continue Lispro SS. (8) DVT prophylaxis Comment: - SQ Heparin. (9) Full code status Status and Disposition: Inpatient. Awaiting placement at [facility]
[2017-04-29] MEDS: LORazepam TAB(*) 0.5 MG PO SCH ×4 (08:50→21:15)
[2017-04-29] MEDS: Diltiazem CD CAP* 240 MG PO SCH (08:50)
[2017-04-29] MEDS: Losartan TAB* 25 MG PO SCH (08:50)
[2017-04-29] MEDS: Lidocaine PATCH 5%* 1 PATCH TRANSDERM SCH (08:52)
[2017-04-29] MEDS: Insulin LISPRO* 1 UNITS UNIT SUBCUT SCH ×3 (09:35→17:47)
--- NOTE | 2017-04-29 20:53 | CONS ---
CONSULTATION REPORT: DATE OF CONSULT: 04/29/17 REASON FOR CONSULT: Right hip pain. HISTORY OF PRESENT ILLNESS: Miriam Barragan is a 62-year-old female. I have seen her once before in the pain clinic. She was sent to me by Dr. Olga Cavanaugh in March of 2015. At that time, the patient told me she had had a right hip replacement done in 2009 in the [facility]. After the surgery, she did not progress as well as everyone thought she should. She saw her orthopedic surgeon and had x-rays done and was told her prosthesis looked in good position. After about a year, she was still using a walker and still having significant pain in her right hip. The patient eventually moved back to [place], [place]. She saw Dr. Sanderson. She had a CAT scan of her pelvis. She cannot have an MRI because of her pacemaker. CAT scan showed atrophy of a gluteus medius and minimus muscles. Dr. Sanderson thought she might have an injury to her superior gluteal nerve. At that time, when I saw her in March of 2015 , she was on OxyContin 10 mg twice a day and oxycodone 10 mg every 4 hours roughly 4 tablets a day. The patient never returned to me. She continued to see Dr. Cavanaugh. The patient was admitted to the hospital acutely on 04/23/17. At that time, she had fallen. It was felt that she had fainted at home. During this hospitalization, she is continued to complain of significant pain in her right hip which she says is worse than before. Currently, she is being treated with oxycodone 15 mg tablets 4 tablets a day. She says this is not enough. She was on Dilaudid intravenously, but that was stopped this morning. She is supposed to be transferred to a usp in [place], [place]. I am asked to see her for pain control. The patient was seen by Dr. Villatoro during this hospitalization. She had new scans done of her hip. It was felt that if the patient does need surgery, she will need to have in a tertiary care facility as none of the surgeons here could perform the necessary surgery. PAST MEDICAL HISTORY: Significant for hypertension, hyperlipidemia, type 2 diabetes mellitus, obesity, hypothyroidism, history of a DVT, and a pacemaker. CURRENT MEDICATIONS: Include: 1. Lipitor. 2. Flexeril. 3. Cardizem CD. 4. She is on sliding scale insulin coverage. 5. Synthroid. 6. Ativan. 7. Oxycodone 15 mg every 4 hours as needed. 8. Lidocaine patch. ALLERGIES: Include METOPROLOL, PENICILLIN, SULFA DRUGS, PROPOFOL, CEFAZOLIN. SOCIAL HISTORY: Prior to admission, she was living by herself. She is a nonsmoker and nondrinker. PHYSICAL EXAM: The patient's temperature is 98.0, blood pressure is 134/70, pulse 68, respirations 16. Her right hip was examined. There is a scar from a previous surgery. There appears to be some atrophy of the surrounding muscles. ASSESSMENT: Right hip pain. PLAN: The patient as mentioned had never seen me again after she had seen me several years back. I think her current pain medication namely oxycodone 15 mg every 4 hours as needed is sufficient. I told the patient if necessary, we could increase the frequency of pain medications. I agree with stopping her Dilaudid intravenously. Obviously, there is some danger with the patient on Ambien as well as Ativan, as well as an opioid of being on multiple sedative hypnotics. This will need to be adjusted in the future. The patient showed no desire to follow up with me or the pain clinic. It is unclear to me if there is a surgical fix to her problem. Thank you for the consultation. [id number]/[facility] #: [id number] KARRI
[2017-04-29] MEDS: Atorvastatin* 20 MG TAB PO SCH (21:15)
[2017-04-29] MEDS: Lidocaine Patch REMOVE* 1 NOTE MISC SCH (21:58)
[2017-04-29] MEDS: Zolpidem TAB* 10 MG PO PRN (22:00)
[2017-04-30] MEDS: oxyCODONE TAB* 5 MG TAB PO PRN ×3 (02:20→10:54)
[2017-04-30] MEDS: Levothyroxine TAB* 75 MCG TAB PO SCH (05:55)
[2017-04-30] MEDS: Heparin VIAL(*) 5000 UNITS/ML VIAL (FIVE THOUSAND) SUBCUT SCH (06:24)
[2017-04-30] MEDS: LORazepam TAB(*) 0.5 MG PO SCH ×2 (07:59→11:25)
[2017-04-30] MEDS: Insulin LISPRO* 1 UNITS UNIT SUBCUT SCH ×2 (08:14→11:24)
[2017-04-30 09:24] VITALS: BP 120/70
[2017-04-30] MEDS: Diltiazem CD CAP* 240 MG PO SCH (09:26)
[2017-04-30] MEDS: Losartan TAB* 25 MG PO SCH (09:27)
[2017-04-30] MEDS: Lidocaine PATCH 5%* 1 PATCH TRANSDERM SCH (09:27)
--- NOTE | 2017-04-30 10:20 | DS ---
CC: Dr. Olga Cavanaugh, Dr. Hdez, Dr. Villatoro * DISCHARGE SUMMARY: DATE OF ADMISSION: 04/23/17 DATE OF DISCHARGE: 04/30/17 PRIMARY CARE PROVIDER: Dr. Olga Cavanaugh PHOTOGRAPHY PROFESSOR: Dr. Hdez CONSULTING ORTHOPEDIST: Dr. Villatoro with the patient upon her transfer to [facility]. DISCHARGE DIAGNOSES: 1. Syncope versus fall. 2. Right hip pain. 3. Mild rhabdomyolysis. 4. Mild troponin elevation. 5. Episode of supraventricular tachycardia. 6. Probable obstructive sleep apnea. SECONDARY DIAGNOSES: 1. Chronic pain. 2. Anxiety. 3. Type 2 diabetes. 4. Prior history of provoked deep vein thrombosis. 5. Morbid obesity with BMI of 44. 6. Hyperlipidemia. 7. Hypertension. 8. Hypothyroidism. 9. Status post pacemaker placement. 10. 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 11. History of melanoma. HOSPITAL COURSE: Ms. Barragan is a 62-year-old lady with a past medical history as stated above that present to the emergency room after a possible syncopal episode at home. She remembers she was getting up to walk to the kitchen, and the next thing she knew she woke up on the floor, on her right side. For more details about her presentation, I refer you to her history and physical. The patient was admitted for further evaluation. Initially, there was a complaint of chest discomfort and her initial troponin was 0.12. Two consecutive troponins after that were 0.03. She was seen in consultation by Cardiology (Dr. Hdez) and he was not sure of the nature of the patient's recurrent episodes. There is no evidence of type 1 plaque disruption MD. It could have been esophageal or coronary spasm and pain induced vagal syncope, but this is uncertain. His recommendation was to stop propranolol as it was not helping her treatment and to start diltiazem 180 mg daily and up titrate this anti- spasm medication until BP is controlled. Apparently, the patient has a history of peptic ulcer disease per her account and he recommended stopping aspirin in case this is making it worse, but the patient had no GI complaints and no signs of GI bleed, so aspirin was continued. He recommended to continue primary prevention statin, to use atorvastatin instead of Zocor while on diltiazem and resume her diuretics. The patient's transthoracic echocardiogram showed the ejection fraction of 55% to 60% with no wall motion abnormalities. Her pacemaker was interrogated and it did not show any significant arrhythmias. No sustained arrhythmias and the impression was this was a normal functioning dual- chamber pacemaker. Of note is one night the patient suddenly woke up with palpitations and her telemetry showed SVT at 130 beats per minute lasting 10 seconds at that time. The impression was that the patient likely had obstructive sleep apnea, so overnight pulse oximetry was ordered and she was found to have oxygen saturation less than 90% during 57% of the time and the longest continuous time with saturation less than 89% was 17 minutes. The patient was started on overnight supplemental oxygen at 2 L/minute, but she will need a formal sleep study as outpatient to confirm the diagnosis of sleep apnea and to qualify for CPAP. The patient had complaints of severe right hip pain. X-rays and CTs were negative for fracture and her prosthesis seems to be well positioned, but she continued to complain of pain and she also described a "popping" sound when moving the hip. She was seen in consultation by orthopedist (Dr. Villatoro) and the patient had her right hip replaced in [place] in 2009, but has had troubles with it since then. She saw Dr. Sanderson in 2013 for pain over the hip and a fascial defect was found and the opinion at that time was that it was irreparable. As per Dr. Villatoro's note, she has had this popping issue for 2 years and it got worse for the past 2 months and even worse after her fall. He discussed the case with colleague and he feels that the fascial defect cannot be repaired in our facility and this is not an emergent procedure. He will re- refer her to a tertiary center to see if fascial graft or something similar could be performed to correct the defect. As per his recommendation, the patient can weight bear as tolerated and work with Physical Therapy as tolerated despite the patient's reluctance to do so. Another issue during her hospital stay was pain control. The patient was continued on oxycodone and initially received Dilaudid and she was very reluctant to change her pain regimen. Consultation was requested with pain specialist (Dr. Al) and he felt that her current pain medication with oxycodone 50 mg every 4 hours as needed is sufficient. He told the patient that if necessary the frequency could be increased. He agreed with stopping Dilaudid intravenously and he was concerned that the patient is on Ambien as well as Ativan as well as an opioid and that this would need to be adjusted in the future. At least at this time, she is not interested in continuing to follow up with him or the pain clinic, but this can be explored again after she completes her rehabilitation process. The patient is medically stable for discharge today. She will continue rehab process at [facility]. PHYSICAL EXAMINATION: Vital Signs: Temperature 98.9, heart rate is 62, respiratory rate is 16, oxygen saturation 98% on room air, blood pressure is 106 /49. General: The patient is a morbidly obese lady, lying in bed, in no acute distress. CVS: Normal S1 and S2. Regular rate and rhythm. Chest: Breath sounds bilaterally, no added sounds. Neurologic: She is alert and oriented x3. Able to move all 4 extremities. DIET: Heart healthy, consistent carb diet. ACTIVITIES: Weightbearing/physical therapy as tolerated. DISPOSITION: To [facility]. STATUS IN THE HOSPITAL: Inpatient. Please keep in mind that this is a summarized version of this patient's hospital stay. If you need more information, please feel free to call me at [phone] or please obtain the full medical records. TIME SPENT: Approximately 45 minutes were spent to complete this discharge. [id number]/CPS #: [id number] KARRI
[2017-04-30] MEDS ORDERED: oxyCODONE TAB* 5 MG TAB ONE (11:01)
== END 2017-04-30 12:25 | DRG 565 ==
LOC: ED 14:41 → MEDTELE 17:15
PROVIDERS: ADMIT Internal Medicine; ATTEND Internal Medicine
PROC: 4B02XSZ Measurement of Cardiac Pacemaker, External Approach (ICD-10-PCS; principal; 2017-04-24)
DX: T79.6XXA Traumatic ischemia of muscle, initial encounter (principal); E87.2 Acidosis; I24.8 Other forms of acute ischemic heart disease; E66.01 Morbid (severe) obesity due to excess calories; I47.1 Supraventricular tachycardia; Z68.41 Body mass index [BMI] 40.0-44.9, adult; I50.9 Heart failure, unspecified; G89.29 Other chronic pain; E11.9 Type 2 diabetes mellitus without complications; M54.5 Low back pain; Z96.641 Presence of right artificial hip joint; Z88.2 Allergy status to sulfonamides; Z88.8 Allergy status to other drugs, medicaments and biological substances; Z95.810 Presence of automatic (implantable) cardiac defibrillator; Z86.718 Personal history of other venous thrombosis and embolism; E78.00 Pure hypercholesterolemia, unspecified; I10 Essential (primary) hypertension; E03.9 Hypothyroidism, unspecified; K21.9 Gastro-esophageal reflux disease without esophagitis; K58.9 Irritable bowel syndrome, unspecified; W19.XXXA Unspecified fall, initial encounter; G47.33 Obstructive sleep apnea (adult) (pediatric); I11.9 Hypertensive heart disease without heart failure; Z96.659 Presence of unspecified artificial knee joint; F41.9 Anxiety disorder, unspecified; Z90.710 Acquired absence of both cervix and uterus; Z86.14 Personal history of Methicillin resistant Staphylococcus aureus infection; Z82.49 Family history of ischemic heart disease and other diseases of the circulatory system; Z83.3 Family history of diabetes mellitus; Z80.3 Family history of malignant neoplasm of breast; Z85.820 Personal history of malignant melanoma of skin; Z88.0 Allergy status to penicillin; Z84.1 Family history of disorders of kidney and ureter; Y92.090 Kitchen in other non-institutional residence as the place of occurrence of the external cause
CPT/HCPCS: 36415; 70450; 71010; 71275; 72192; 74176; 80048; 80053; 81003; 82550; 82553; 83605; 83735; 84436; 84439; 84443; 84479; 84481; 84484; 85025; 85379; 85610; 85730; 93005; 93306; 93880; 94762; A9270-GY; J0360; J1170; J1644; J2405; J3475; Q9967

== ENCOUNTER 2017-12-13 22:55 | Inpatient (IN) | payer MEDICARE, MEDICAID ==
[2017-12-13] MEDS ORDERED: Aspirin 81 mg CHEW TAB* 81 MG TAB.CHEW PO ONE (23:52)
[2017-12-13] MEDS ORDERED: Morphine VIAL* 4 MG/ML VIAL (1 ml vial) IV ONE (23:53)
[2017-12-14] MEDS ORDERED: Ondansetron ODT TAB* 4 MG ONE (00:16)
[2017-12-14] MEDS: Ondansetron ODT TAB* 4 MG SL PRN ×2 (00:18→09:59)
[2017-12-14] MEDS ORDERED: Morphine VIAL* 10 MG/ML 1 ML VIAL ONE ×2 (00:22→07:14)
[2017-12-14] MEDS ORDERED: Morphine VIAL* 10 MG/ML 1 ML VIAL IV ONE (00:26)
[2017-12-14 00:29] LABS: ABS Basophils 0 10^3/ul (0-0.2); ABS Eosinophils 0 10^3/ul (0-0.6); ABS Lymphocytes 1.4 10^3/ul (1.0-4.8); ABS Monocytes 0.5 10^3/ul (0-0.8); ABS Neutrophils 3.7 10^3/ul (1.5-7.7); ABS Nucleated RBC 0 10^3/ul; Eosinophil % 0.5 % (0-6); Hematocrit 35 % (35-47); Hemoglobin 11.6 g/dl (12.0-16.0); Lymphocyte % 24.2 % (25-47); Mean Corpuscular HGB Conc 33 g/dl (31-36); Mean Corpuscular Hemoglobin 31 pg (27-31); Mean Corpuscular Volume 94 fL (80-97); Mean Platelet Volume 8.3 um3 (7.4-10.4); Nucleated Red Blood Cells % 0.1; Platelet Count 323 10^3/ul (150-450); Red Blood Count 3.77 10^6/ul (4.00-5.40); Red Cell Distribution Width 17 % (10.5-15); White Blood Count 5.7 10^3/ul (3.5-10.8)
--- NOTE | 2017-12-14 00:45 | ED ---
HPI Chest Pain - HPI Summary HPI Summary: A 62 y/o female presents to ED c/o chest pain and severe edema. As per triage, "Patient reports chest pain, increased SOB and edema". Currently, she has pain on the left-side of back reaching 6/10 in severity. According to the patient, the left-sided chest pain started out really back today around 1000. The pain became intermittently worse over the day. Each episode lasts about 2-3 minutes. She noted that she has had edema since Friday. Additionally, her abdomen is distended. Her last bowel movement was yesterday. PMHx of cardiac problems like CHF (virus), no SC. SHx of no drugs or ETOH. - History of Current Complaint Chief Complaint: EDChestPainROMI Time Seen by Provider: 12/13/17 23:34 Hx Obtained From: Patient Onset/Duration: Started Hours Ago - CHEST PAIN, Started Days Ago - EDEMA, Still Present, Worse Since Timing: Intermittent Initial Severity: Moderate Current Severity: Moderate Pain Intensity: 6 Pain Scale Used: 0-10 Numeric Chest Pain Location: Left Anterior Chest Pain Radiates: Yes Chest Pain Radiates To:: Back Character: Other: - EDEMA Aggravating Factor(s): Nothing Alleviating Factor(s): Nothing Associated Signs and Symptoms: Positive: Chest Pain, Shortness of Breath, Back Pain, Edema - Additional Pertinent History Primary Care Physician: [id number] - Allergy/Home Medications Allergies/Adverse Reactions: Allergies Allergy/AdvReac Type Severity Reaction Status Date / Time cefazolin [From Ancef] Allergy Unknown Verified 12/14/17 00:42 Reaction Details citalopram [From Celexa] Allergy Insomnia Verified 12/14/17 00:42 naproxen Allergy Vomiting Verified 12/14/17 00:42 NSAIDS (Non-Steroidal Allergy GI Upset Verified 12/14/17 00:42 Anti-Inflamma Penicillins Allergy Rash Verified 12/14/17 00:42 propofol Allergy See Comment Verified 12/14/17 00:42 Sulfa (Sulfonamide Allergy Unknown Verified 12/14/17 00:42 Antibiotics) Reaction Details zaleplon [From Sonata] Allergy Insomnia Verified 12/14/17 00:42 PMH/Surg Hx/FS Hx/Imm Hx Endocrine/Hematology History: Reports: Hx Blood Transfusions, Hx Diabetes Denies: Hx Anticoagulant Therapy, Hx Blood Disorders, Hx Bone Marrow Disease , Hx Systemic Lupus Erythematosus, Hx Sickle Cell Disease, Hx Thyroid Disease, Hx Anemia, Hx Unexplained Bleeding Cardiovascular History: Reports: Hx Angina, Hx Auto Implanted Cardiovert Defib, Hx Cardiomegaly - SINCE IN HER TEENS, Hx Congestive Heart Failure, Hx Deep Vein Thrombosis, Hx Hypercholesterolemia, Hx Hypertension - W/MEDS, Hx Pacemaker/ICD , Other Cardiovascular Problems/Disorders - Pericarditis Denies: Hx Coronary Artery Disease, Hx Myocardial Infarction, Hx Peripheral Vascular Disease, Hx Valvular Heart Disease Respiratory History: Reports: Other Respiratory Problems/Disorders - sob associated - inspiratory pain left ribs, abdominal distention per pt Denies: Hx Asthma, Hx Chronic Obstructive Pulmonary Disease (COPD) GI History: Reports: Hx Gastroesophageal Reflux Disease, Hx Irritable Bowel, Other GI Disorders - ABDOMEN DISTENDED Denies: Hx Cirrhosis, Hx Ulcer History: Denies: Hx Dialysis, Hx Renal Disease Musculoskeletal History: Reports: Hx Back Problems - back surgery x 3, Hx Orthopedic Injury, Other Musculoskeletal History - knee, hip surgery hx Denies: Hx Bursitis, Hx Congenital Bone Abnormalities, Hx Fibromyalgia, Hx Gout, Hx Osteoporosis, Hx Scoliosis, Hx Tendonitis Sensory History: Reports: Hx Contacts or Glasses Denies: Hx Cataracts, Hx Eye Injury, Hx Eye Prosthesis, Hx Glaucoma, Hx Macular Degeneration, Hx Vision Problem, Hx Deafness, Hx Hearing Aid, Hx Hearing Problem, Other Sensory Impairments Opthamlomology History: Reports: Hx Contacts or Glasses Denies: Hx Cataracts, Hx Eye Injury, Hx Eye Prosthesis, Hx Glaucoma, Hx Macular Degeneration, Hx Vision Problem, Other Sensory Impairments Neurological History: Denies: Hx Dementia, Hx Developmental Delay, Hx Headaches, Hx Migraine, Hx Seizures, Hx Spinal Cord Injury, Hx Transient Ischemic Attacks (TIA), Other Neuro Impairments/Disorders - LOC WITH FALLL Psychiatric History: Reports: Hx Anxiety Denies: Hx Attention Deficit Hyperactivity Disorder, Hx Eating Disorder, Hx Depression, Hx Panic Disorder, Hx Post Traumatic Stress Disorder, Hx Inpatient Treatment, Hx Schizophrenia, Hx Bipolar Disorder, Hx Suicide Attempt, Hx Substance Abuse, Other Psychiatric Issues/Disorders - Cancer History Cancer Type, Location and Year: skin cancer on right leg, removed Hx Chemotherapy: No Hx Radiation Therapy: No - Surgical History Surgery Procedure, Year, and Place: left shoulder surgery Jul 08 2013 csections x 3. partial hysterectomy. 3 back surgeries. right hip REPLACEMENT. LEFT KNEE RECONSTRUCTION. PACEMAKER FIXSOM-[id number]. 3 C- SECTIONS. RIGHT SHOULDER ROTATOR CUFF REPAIR - 15 YEARS AGO. UMBILICAL HERNIA REPAIR Hx Anesthesia Reactions: Yes - PROPOFOL REACTION- THRASHING AND SCREAMING - Immunization History Date of Tetanus Vaccine: utd Date of Influenza Vaccine: utd Infectious Disease History: No Infectious Disease History: Reports: Hx Clostridium Difficile, Hx of Known/ Suspected MRSA Denies: Hx Hepatitis, Hx Human Immunodeficiency Virus (HIV), Hx Shingles, Hx Tuberculosis, Traveled Outside the [place] in Last 30 Days - Family History Known Family History: Positive: Cardiac Disease - CAD, Diabetes, Other - Breast CA - Social History Alcohol Use: None Hx Substance Use: No Substance Use Type: Reports: None Hx Tobacco Use: No Smoking Status (MU): Never Smoked Tobacco Review of Systems Negative: Fever Positive: Chest Pain Positive: Shortness Of Breath Positive: Other - POSITIVE: Distended abdomen Positive: Edema, Other - POSITIVE: Back pain All Other Systems Reviewed And Are Negative: Yes Physical Exam - Summary Physical Exam Summary: GENERAL: Patient is a well-developed and nourished female who is lying comfortable in the stretcher. Patient is not in any acute respiratory distress. Morbidly obese. HEAD AND FACE: No signs of trauma. No ecchymosis, hematomas or skull depressions. No sinus tenderness. EYES: PERRLA, EOMI x 2, No injected conjunctiva, no nystagmus. EARS: Hearing grossly intact. Ear canals and tympanic membranes are within normal limits. MOUTH: Oropharynx within normal limits. NECK: Supple, trachea is midline, no adenopathy, no JVD, no carotid bruit, no c- spine tenderness, neck with full ROM. CHEST: Symmetric, no tenderness at palpation LUNGS: Clear to auscultation bilaterally. No wheezing or crackles. CVS: Regular rate and rhythm, S1 and S2 present, no murmurs or gallops appreciated. ABDOMEN: Soft, non-tender. Abdomen is distended. No rebound no guarding, and no masses palpated. Bowel sounds are normal. EXTREMITIES: FROM in all major joints, no cyanosis or clubbing, 2+ bilateral pedal edema. NEURO: Alert and oriented x 3. No acute neurological deficits. Speech is normal and follows commands. SKIN: Dry and warm. 2+ bilateral pedal edema. Triage Information Reviewed: Yes Vital Signs On Initial Exam: Initial Vitals Temp Pulse Resp BP Pulse Ox 95.6 F 67 22 148/71 92 12/13/17 23:11 12/13/17 23:11 12/13/17 23:11 12/13/17 23:11 12/13/17 23:11 Vital Signs Reviewed: Yes Diagnostics - Vital Signs Vital Signs Temp Pulse Resp BP Pulse Ox 12/14/17 00:27 19 12/13/17 23:11 95.6 F 67 22 148/71 92 - Laboratory Lab Results: Lab Results 12/14/17 Range/Units 00:00 WBC 5.7 (3.5-10.8) 10^3/ul RBC 3.77 L (4.00-5.40) 10^6/ul Hgb 11.6 L (12.0-16.0) g/dl Hct 35 (35-47) % MCV 94 (80-97) fL MCH 31 (27-31) pg MCHC 33 (31-36) g/dl RDW 17 H (10.5-15) % Plt Count 323 (150-450) 10^3/ul MPV 8.3 (7.4-10.4) um3 Neut % (Auto) 65.3 (38-83) % Lymph % (Auto) 24.2 L (25-47) % [place] % (Auto) 9.6 H (0-7) % Eos % (Auto) 0.5 (0-6) % Baso % (Auto) 0.4 (0-2) % Absolute Neuts (auto) 3.7 (1.5-7.7) 10^3/ul Absolute Lymphs (auto) 1.4 (1.0-4.8) 10^3/ul Absolute Monos (auto) 0.5 (0-0.8) 10^3/ul Absolute Eos (auto) 0 (0-0.6) 10^3/ul Absolute Basos (auto) 0 (0-0.2) 10^3/ul Absolute Nucleated RBC 0 10^3/ul Nucleated RBC % 0.1 Result Diagrams: 12/14/17 00:00 12/14/17 00:00 Lab Statement: Any lab studies that have been ordered have been reviewed, and results considered in the medical decision making process. - Radiology CXR Radiology Interpretation Completed By: ED Physician - BILATERAL VENOUS CONGESTION. CARDIOMEGALY. LEFT PLEURAL EFFUSION. - EKG 2320 Cardiac Rate: NL - 66 BPM EKG Rhythm: Sinus Rhythm EKG Interpretation: LVH with strain EKG Comparison: No Significant Change - 04/24/2017 Chest Pain Course/Dx - Course Course Of Treatment: A 62 y/o female presents to ED c/o chest pain and severe edema. As per triage, "Patient reports chest pain, increased SOB and edema". Currently, she has pain on the left-side of back reaching 6/10 in severity. According to the patient, the left-sided chest pain started out really back today around 1000. The pain became intermittently worse over the day. Each episode lasts about 2-3 minutes. She noted that she has had edema since Friday. Additionally, her abdomen is distended. A CXR revealed left pleural effusion, cardiomegaly and bilateral venous congestion. An EKG revealed a rate of 66 BPM and LVH with strain. In the ED course, the patient recieved Zofran, Aspirin, Lasix, Insulin and Morphine. Patient care was discussed with Dr. Barroso who accepts patient for admission. Pt will be admitted with a diagnosis of CHF and CP. Pt is agreeable with this plan. - Diagnoses Provider Diagnoses: Chest pain, CHF (congestive heart failure) - Provider Notifications Discussed Care Of Patient With: Bebeto Barroso Time Discussed With Above Provider: 01:00 Instructed by Provider To: Other - Accepts for admission. Discharge - Sign-Out/Discharge Documenting (check all that apply): Patient Departure - ADMIT - Discharge Plan Condition: Stable Disposition: ADMITTED TO [facility] Referrals: Olga Cavanaugh MD [Primary Care Provider] -
[2017-12-14 00:47] LABS: EGFR Non-African American 96.9 (>60)
[2017-12-14] MEDS ORDERED: Furosemide IV* 10 MG/ML VIAL (40 MG) IV ONE (01:07)
[2017-12-14] MEDS ORDERED: Insulin REGULAR(*) 1 UNITS UNIT IV PUSH ONE (01:08)
[2017-12-14 01:41] LABS: INR 0.94 (0.77-1.02)
[2017-12-14] MEDS ORDERED: Morphine VIAL* 4 MG/ML VIAL (1 ml vial) IV ONE (04:43)
[2017-12-14] MEDS ORDERED: Acetaminophen TAB* 325 MG PO PRN (06:02)
[2017-12-14] MEDS ORDERED: Metoprolol Tartrate IV* 1 MG/ML 5 ML VIAL IV ONE (06:03)
--- NOTE | 2017-12-14 06:06 | HP ---
H&P (Free Text) History and Physical: PCP: Moris Miller MD Date/Time: 12/14/2017 0530 CC: chest pain HPI: Mrs Barragan is a 62YO morbidly obese female HX DM2, HTN, HLD, CAD, & hypothyroidism who reports onset yesterday mid-morning of uncharacterizable sub- sternal non-exertional chest discomfort associated with SOB, N/V, palpitations, & light-headedness. She reports walking made the pain worse, but denies alleviating factors. She also reports increased BLE swelling over the past week , but no dietary sodium indiscretion. PMedHx DM2 CAD HTN HLD hypothyroidism Ambulatory Orders Nursing to reconcile. Cholecalciferol (Vitamin D3) [Vitamin D3] 1,000 unit PO DAILY 09/29/13 Polyethylene Glycol 3350* [Miralax*] 17 gm PO DAILY PRN 02/16/15 Zolpidem TAB* [Ambien*] 10 mg PO BEDTIME PRN 02/16/15 oxyCODONE TAB* [Roxycodone TAB 5 mg*] 15 mg PO Q4H PRN #20 tab MDD 60 02/21/17 Aspirin EC TAB* [Ecotrin EC Low Dose 81 MG*] 81 mg PO DAILY 04/23/17 Furosemide TAB* [Lasix TAB*] 40 mg PO DAILY 04/23/17 Irbesartan (NF) [Avapro (NF)] 150 mg PO DAILY 04/23/17 Levothyroxine TAB* [Synthroid 75 MCG TAB*] 75 mcg PO DAILY 04/23/17 Multivitamins/Minerals TAB* [Theragran/minerals TAB*] 1 tab PO DAILY 04/23/17 metFORMIN* [Glucophage 1000 MG TAB *] 1,000 mg PO BID 04/23/17 Acetaminophen TAB* [Tylenol TAB*] 650 mg PO Q4H PRN tab 04/30/17 Atorvastatin* [Lipitor 20 MG*] 20 mg PO BEDTIME tab 04/30/17 Cyclobenzaprine TAB* [Flexeril 10 MG TAB*] 10 mg PO TID PRN tab 04/30/17 Diltiazem CD CAP* [Cardizem CD CAP*] 240 mg PO DAILY cap.cd 04/30/17 LORazepam TAB(*) [Ativan 0.5 MG TAB (*)] 1 mg PO QID #20 tab MDD 4 04/30/17 Lidocaine PATCH 5%* [Lidoderm 5% Patch*] 1 patch TRANSDERM DAILY patch Allergies cefazolin [From Ancef] Allergy (Verified 12/14/17 00:42) Unknown Reaction Details citalopram [From Celexa] Allergy (Verified 12/14/17 00:42) Insomnia naproxen Allergy (Verified 12/14/17 00:42) Vomiting NSAIDS (Non-Steroidal Anti-Inflamma Allergy (Verified 12/14/17 00:42) GI Upset Penicillins Allergy (Verified 12/14/17 00:42) Rash propofol Allergy (Verified 12/14/17 00:42) See Comment screaming and thrashing Sulfa (Sulfonamide Antibiotics) Allergy (Verified 12/14/17 00:42) Unknown Reaction Details zaleplon [From Sonata] Allergy (Verified 12/14/17 00:42) Insomnia PSurgHx section x3 L-spine surgery x4 pacer placement L TKA RTHA tonsillectomy SocHx: denies tobacco, alcohol, & recreational drugs; 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; , lives alone; full code status FamHx: Mother: alive 85 w/ OA; Father: passed 57 2nd CAD; Brother: passed 51 2nd CAD; sisters x4: hypothyroidism ROS: as above, otherwise reviewed and all were negative vitals: Vital Signs Temp 35.3 C 12/13/17 23:11 Pulse 60 12/14/17 05:00 Resp 18 12/14/17 04:52 BP 170/79 12/14/17 04:53 Pulse Ox 93 12/14/17 05:00 Intake & Output 12/13/17 12/13/17 12/14/17 11:59 23:59 11:59 Weight 120.202 kg Constitutional: NAD, normally developed, morbidly obese white female HEENM: atraumatic; sclera/conjunctiva: anicteric/clear; hearing: clinically intact; oropharynx: clear, mucosa moist Neck: soft tissue: non-tender; thyroid: normal Pulmonary: clear to auscultation bilaterally, good aeration, no accessory muscle use CV: RR/RR, normal S1S2, no carotid bruit, no jugular venous distention, 2+ B DP/ PT, 2+ BLE edema Abdominal: soft, non-distended, non-tender, no rebound/guarding/rigidity, normoactive bowel sounds, no hepatosplenomegaly or masses, no costovertebral angle tenderness Musculoskeletal: general: grossly intact; moderately tender to palpation of anterior shins Integumental: R rush partial thickness scratch, BLE blistering w/o erythema/ warmth/malodor Psychiatric orientation: AA&O to PPS affect: calm mood: cooperative eye contact: fair content: reliable responses: timely insight: fair Testing: Lab Results 12/14/17 12/14/17 12/14/17 Range/Units 00:00 00:00 00:00 WBC 5.7 (3.5-10.8) 10^3/ul RBC 3.77 L (4.00-5.40) 10^6/ul Hgb 11.6 L (12.0-16.0) g/dl Hct 35 (35-47) % MCV 94 (80-97) fL MCH 31 (27-31) pg MCHC 33 (31-36) g/dl RDW 17 H (10.5-15) % Plt Count 323 (150-450) 10^3/ul MPV 8.3 (7.4-10.4) um3 Neut % (Auto) 65.3 (38-83) % Lymph % (Auto) 24.2 L (25-47) % [place] % (Auto) 9.6 H (0-7) % Eos % (Auto) 0.5 (0-6) % Baso % (Auto) 0.4 (0-2) % Absolute Neuts (auto) 3.7 (1.5-7.7) 10^3/ul Absolute Lymphs (auto) 1.4 (1.0-4.8) 10^3/ul Absolute Monos (auto) 0.5 (0-0.8) 10^3/ul Absolute Eos (auto) 0 (0-0.6) 10^3/ul Absolute Basos (auto) 0 (0-0.2) 10^3/ul Absolute Nucleated RBC 0 10^3/ul Nucleated RBC % 0.1 INR (Anticoag Therapy) 0.94 (0.77-1.02) APTT 30.0 (26.0-36.3) seconds Sodium 135 (135-145) mmol/L Potassium 3.9 (3.5-5.0) mmol/L Chloride 97 L (101-111) mmol/L Carbon Dioxide 29 (22-32) mmol/L Anion Gap 9 (2-11) mmol/L BUN 11 (6-24) mg/dL Creatinine 0.62 (0.51-0.95) mg/dL Est GFR ( Amer) 117.3 (>60) Est GFR (Non-Af Amer) 96.9 (>60) BUN/Creatinine Ratio 17.7 (8-20) Glucose 300 H (70-100) mg/dL Calcium 9.2 (8.6-10.3) mg/dL Magnesium 1.8 L (1.9-2.7) mg/dL Total Bilirubin 0.40 (0.2-1.0) mg/dL AST 88 H (13-39) U/L ALT 78 H (7-52) U/L Alkaline Phosphatase 107 H (34-104) U/L Troponin I 0.04 H* (<0.04) ng/mL B-Natriuretic Peptide ( - 100) pg/mL Total Protein 6.7 (6.4-8.9) g/dL Albumin 3.5 (3.2-5.2) g/dL Globulin 3.2 (2-4) g/dL Albumin/Globulin Ratio 1.1 (1-3) 12/14/17 Range/Units 00:00 WBC (3.5-10.8) 10^3/ul RBC (4.00-5.40) 10^6/ul Hgb (12.0-16.0) g/dl Hct (35-47) % MCV (80-97) fL MCH (27-31) pg MCHC (31-36) g/dl RDW (10.5-15) % Plt Count (150-450) 10^3/ul MPV (7.4-10.4) um3 Neut % (Auto) (38-83) % Lymph % (Auto) (25-47) % [place] % (Auto) (0-7) % Eos % (Auto) (0-6) % Baso % (Auto) (0-2) % Absolute Neuts (auto) (1.5-7.7) 10^3/ul Absolute Lymphs (auto) (1.0-4.8) 10^3/ul Absolute Monos (auto) (0-0.8) 10^3/ul Absolute Eos (auto) (0-0.6) 10^3/ul Absolute Basos (auto) (0-0.2) 10^3/ul Absolute Nucleated RBC 10^3/ul Nucleated RBC % INR (Anticoag Therapy) (0.77-1.02) APTT (26.0-36.3) seconds Sodium (135-145) mmol/L Potassium (3.5-5.0) mmol/L Chloride (101-111) mmol/L Carbon Dioxide (22-32) mmol/L Anion Gap (2-11) mmol/L BUN (6-24) mg/dL Creatinine (0.51-0.95) mg/dL Est GFR ( Amer) (>60) Est GFR (Non-Af Amer) (>60) BUN/Creatinine Ratio (8-20) Glucose (70-100) mg/dL Calcium (8.6-10.3) mg/dL Magnesium (1.9-2.7) mg/dL Total Bilirubin (0.2-1.0) mg/dL AST (13-39) U/L ALT (7-52) U/L Alkaline Phosphatase (34-104) U/L Troponin I (<0.04) ng/mL B-Natriuretic Peptide 175 H ( - 100) pg/mL Total Protein (6.4-8.9) g/dL Albumin (3.2-5.2) g/dL Globulin (2-4) g/dL Albumin/Globulin Ratio (1-3) ECG, personally reviewed: sinus 1st degree AV block ratr 66, ST elevation V3-5 w / T wave inversions V6 & I; similar to comparison 04/24/2017 CXR, personally reviewed: no acute process Impression: 62F HX DM2, HTN, HLD, CAD, & hypothyroidism presents with chest pain for r/o ACS & increased BLE edema DIAGNOSIS & PLAN Primary chest pain r/o ACS : telemetry : trend troponin : supplemental oxygen : aspirin given in ED : metoprolol 5mg IV once : supportive care BLE edema : furosemide 40mg IV given in ED : strict I&Os : daily weights : ECHO in AM Secondary DM2 : check A1c : consistent carb diet : correctional insulin CAD : review meds once reconciled HTN : review meds once reconciled HLD : review meds once reconciled hypothyroidism : review meds once reconciled Admission Rational: observation for r/o ACS DVTp: heparin SQ Code Status: full HCP: sister: Tata Omer
[2017-12-14] MEDS ORDERED: Morphine INJ* 2 MG/ML 1 ML CARPUJECT IV ONE (07:08)
[2017-12-14] MEDS: Docusate CAP* 100 MG PO SCH ×2 (10:00→22:48)
[2017-12-14] MEDS: Insulin LISPRO* 1 UNITS UNIT SUBCUT SCH ×4 (10:00→22:49)
[2017-12-14] MEDS ORDERED: Polyethylene Glycol 3350* 17 GM PACKET PO PRN (10:00)
[2017-12-14] MEDS ORDERED: LORazepam TAB(*) 1 MG PO ONE (10:15)
[2017-12-14] MEDS: oxyCODONE TAB* 5 MG TAB PO PRN ×3 (10:34→18:34)
--- NOTE | 2017-12-14 11:45 | RAD ---
Indication: Chest and back pain. Cardiac disease. History of pericarditis. April 23, [address] Comparison: April 23, [address] Technique: Upright AP 0046 hours Report: Cardiomegaly. RIGHT atrial and RIGHT ventricular level pacemaker leads. Prominent mildly ill-defined central pulmonary vasculature. Diffuse mild prominence of the interstitial markings. Asymmetric opacity at the LEFT lung base likely represents atelectasis secondary to cardiomegaly however pneumonia is not excluded. Grossly clear pleural spaces. Negative for pneumothorax. Thoracic lumbar spinal fixation rods noted. IMPRESSION: #. Pulmonary vascular congestion and interstitial edema. #. Asymmetric opacity at the LEFT lung base likely represents atelectasis secondary to cardiomegaly however pneumonia is not excluded. R0
[2017-12-14] MEDS: Cyclobenzaprine TAB* 10 MG PO PRN (12:14)
[2017-12-14] MEDS: LORazepam TAB(*) 1 MG PO SCH ×4 (14:08→22:49)
--- NOTE | 2017-12-14 15:21 | PN ---
Subjective Date of Service: 12/14/17 Interval History: Pt's CP resolved. she was discharged from a NH in [facility] in 10/2017 after 6 months of sty in [facility]. She has no help at home and purchases her meals by herself. He diet definitely changed in the past months since she left the NH and noted wt gain and edema. with her wt gain , her chronic R hip pain got worse. She became more SOB and stared feeling "chest pressure". today pt is CP free Objective Active Medications: Acetaminophen (Tylenol Tab*) 650 mg PO Q6H PRN PRN Reason: FEVER/PAIN Aspirin (Aspirin Ec Tab*) 81 mg PO DAILY [facility] Atorvastatin Calcium (Lipitor*) 20 mg PO BEDTIME [facility] Cyclobenzaprine HCl (Flexeril Tab*) 10 mg PO TID PRN PRN Reason: SPASMS Last Admin: 12/14/17 12:14 Dose: 10 mg Diltiazem HCl (Cardizem Cd Cap*) 240 mg PO DAILY [facility] Docusate Sodium (Colace Cap*) 200 mg PO BID [facility] Last Admin: 12/14/17 10:00 Dose: 200 mg Furosemide (Lasix Tab*) 40 mg PO DAILY [facility] Insulin Human Lispro (Humalog*) 0 units SUBCUT ACHS [facility]; Protocol Last Admin: 12/14/17 12:14 Dose: 9 units Levothyroxine Sodium (Synthroid Tab*) 75 mcg PO 0600 [facility] Lorazepam (Ativan Tab(*)) 1 mg PO QID [facility] Last Admin: 12/14/17 14:43 Dose: 1 mg Ondansetron HCl (Zofran Odt Tab*) 8 mg SL Q6H PRN PRN Reason: NAUSEA/VOMITING Last Admin: 12/14/17 09:59 Dose: 8 mg Oxycodone HCl (Roxycodone Tab*) 15 mg PO Q4H PRN PRN Reason: PAIN Last Admin: 12/14/17 14:43 Dose: 15 mg Polyethylene Glycol/Electrolytes (Miralax*) 17 gm PO DAILY PRN PRN Reason: CONSTIPATION Zolpidem Tartrate (Ambien Tab*) 10 mg PO BEDTIME PRN PRN Reason: SLEEP Vital Signs - 8 hr 12/14/17 12/14/17 12/14/17 08:00 08:24 08:25 Temperature 97.8 F Pulse Rate 60 68 Respiratory 18 Rate Blood Pressure 153/66 (mmHg) O2 Sat by Pulse 92 96 100 Oximetry 12/14/17 12/14/17 12/14/17 09:28 09:35 10:34 Temperature 97.8 F 98.8 F Pulse Rate 68 60 Respiratory 16 16 18 Rate Blood Pressure 153/66 160/83 (mmHg) O2 Sat by Pulse 100 95 Oximetry 12/14/17 12/14/17 12/14/17 12:14 12:34 14:43 Temperature Pulse Rate Respiratory 24 18 22 Rate Blood Pressure (mmHg) O2 Sat by Pulse Oximetry 12/14/17 14:45 Temperature Pulse Rate Respiratory 22 Rate Blood Pressure (mmHg) O2 Sat by Pulse Oximetry Oxygen Devices in Use Now: Nasal Cannula Appearance: 62 yo f in nAD, aAOx3 Eyes: No Scleral Icterus, PERRLA Ears/Nose/Mouth/Throat: NL Teeth, Lips, Gums, Mucous Membranes Moist Neck: NL Appearance and Movements; NL JVP, Trachea Midline Respiratory: Symmetrical Chest Expansion and Respiratory Effort, Clear to Auscultation Cardiovascular: NL Sounds; No Murmurs; No JVD, RRR Abdominal: NL Sounds; No Tenderness; No Distention Lymphatic: No Cervical Adenopathy Extremities: No Clubbing, Cyanosis, - - leg edema and lower abd edema noted Skin: No Nodules or Sclerosis, - - R calf abrasion with mifd skin erythema, no cellulitis Neurological: Alert and Oriented x 3, NL Muscle Strength and Tone Result Diagrams: 12/14/17 00:00 12/14/17 00:00 Additional Lab and Data: Lab Results 12/14/17 Range/Units 00:00 WBC 5.7 (3.5-10.8) 10^3/ul RBC 3.77 L (4.00-5.40) 10^6/ul Hgb 11.6 L (12.0-16.0) g/dl Hct 35 (35-47) % MCV 94 (80-97) fL MCH 31 (27-31) pg MCHC 33 (31-36) g/dl RDW 17 H (10.5-15) % Plt Count 323 (150-450) 10^3/ul MPV 8.3 (7.4-10.4) um3 Neut % (Auto) 65.3 (38-83) % Lymph % (Auto) 24.2 L (25-47) % [place] % (Auto) 9.6 H (0-7) % Eos % (Auto) 0.5 (0-6) % Baso % (Auto) 0.4 (0-2) % Absolute Neuts (auto) 3.7 (1.5-7.7) 10^3/ul Absolute Lymphs (auto) 1.4 (1.0-4.8) 10^3/ul Absolute Monos (auto) 0.5 (0-0.8) 10^3/ul Absolute Eos (auto) 0 (0-0.6) 10^3/ul Absolute Basos (auto) 0 (0-0.2) 10^3/ul Absolute Nucleated RBC 0 10^3/ul Nucleated RBC % 0.1 Microbiology and Other Data: Microbiology 12/14/17 06:16 Nasal Screen MRSA (PCR) - Final Nasal Mrsa Not Detected Assess/Plan/Problems-Billing Assessment: Mrs. Barragan is a 62 yo F with PMH of morbid obesity, type 2 DM, chronic pain, HTN, HLD, hypothyroidism, h/o DVT, s/p pacemaker, recurrent eval for CP who presented to ED with c/o weight gain ,edema, CP - Patient Problems (1) CHF (congestive heart failure) Comment: suspect dietary indiscretion Echo pending cont Laisix IV and daily weights (2) Chest pain Comment: Trops negative. EKG unchanged. Previous extensive cardiac workup, including a cardiac cath in 2014 will get chemical stress test in AM (3) Chronic pain Comment: Continue home oxycodone (4) Demand ischemia Comment: Troponin 0.0.4 Likely demand ischemia (5) Diabetes Comment: Continue Lispro SS. metformin held (6) Psychogenic tremor Comment: pt has h/o isolated head tremor with no neurological deficits that coincides with onset of severe anxiety most consistent with psychogenic tremor. (7) Right hip pain Comment: chronic Xray and CT was negative for fracture in 04/2017. - Ortho consult in 04/2017 - patient had hip replacement done in [place] [address] Sanderson in 2013 for hip pain. 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 She has had pain and "popping sound" for years, but it became worse over the last 2 months and even worse after her fall. Dr. Villatoro d/w general surgery if mesh would be appropriate to correct the fascial defect, but the conclusion is she should be evaluated in a Tertiary center. (8) DVT prophylaxis Comment: - SQ Heparin.
[2017-12-14] MEDS: Furosemide IV* 10 MG/ML 10 ML VIAL (100 MG) IV SCH (17:17)
[2017-12-14] MEDS: Insulin GLARGINE(*) 1 UNITS UNIT SUBCUT SCH (17:18)
[2017-12-14] MEDS: Zolpidem TAB* 10 MG PO PRN (22:48)
[2017-12-14] MEDS: Atorvastatin* 20 MG TAB PO SCH (22:48)
[2017-12-14] MEDS: Heparin VIAL(*) 5000 UNITS/ML VIAL (FIVE THOUSAND) SUBCUT SCH (22:49)
[2017-12-15] MEDS: Cyclobenzaprine TAB* 10 MG PO PRN ×4 (02:35→16:47)
[2017-12-15] MEDS: oxyCODONE TAB* 5 MG TAB PO PRN ×6 (04:25→21:09)
[2017-12-15] MEDS: Levothyroxine TAB* 75 MCG TAB PO SCH (07:09)
[2017-12-15] MEDS: Heparin VIAL(*) 5000 UNITS/ML VIAL (FIVE THOUSAND) SUBCUT SCH ×3 (07:09→21:08)
[2017-12-15 07:22] LABS: EGFR Non-African American 102.6 (>60)
[2017-12-15] MEDS: Diltiazem CD CAP* 240 MG PO SCH (08:52)
[2017-12-15] MEDS: Docusate CAP* 100 MG PO SCH ×2 (08:53→21:06)
[2017-12-15] MEDS: LORazepam TAB(*) 1 MG PO SCH ×4 (08:53→21:07)
[2017-12-15] MEDS: Aspirin EC TAB* 81 MG TAB.EC PO SCH (08:53)
[2017-12-15] MEDS: Furosemide IV* 10 MG/ML 10 ML VIAL (100 MG) IV SCH ×2 (08:54→16:49)
[2017-12-15] MEDS: Insulin LISPRO* 1 UNITS UNIT SUBCUT SCH ×4 (08:55→21:06)
[2017-12-15] MEDS ORDERED: Furosemide TAB* 40 MG PO SCH (09:00)
--- NOTE | 2017-12-15 09:11 | PN ---
Subjective Date of Service: 12/15/17 Interval History: Pt continues to c/o chronic R hip pain. SOB/CP resolved. NPO for stress test today wishes to go to [facility] Objective Active Medications: Acetaminophen (Tylenol Tab*) 650 mg PO Q6H PRN PRN Reason: FEVER/PAIN Last Admin: 12/15/17 02:35 Dose: 650 mg Aspirin (Aspirin Ec Tab*) 81 mg PO DAILY [facility] Last Admin: 12/15/17 08:53 Dose: 81 mg Atorvastatin Calcium (Lipitor*) 20 mg PO BEDTIME [facility] Last Admin: 12/14/17 22:48 Dose: 20 mg Cyclobenzaprine HCl (Flexeril Tab*) 10 mg PO TID PRN PRN Reason: SPASMS Last Admin: 12/15/17 08:53 Dose: 10 mg Diltiazem HCl (Cardizem Cd Cap*) 240 mg PO DAILY [facility] Last Admin: 12/15/17 08:52 Dose: 240 mg Docusate Sodium (Colace Cap*) 200 mg PO BID [facility] Last Admin: 12/15/17 08:53 Dose: 200 mg Furosemide (Lasix Iv*) 40 mg IV 0800,1700 [facility] Last Admin: 12/15/17 08:54 Dose: 40 mg Heparin Sodium (Porcine) (Heparin Vial(*)) 5,000 units SUBCUT Q8HR [facility] Last Admin: 12/15/17 07:09 Dose: 5,000 units Insulin Glargine (Lantus(*)) 5 units SUBCUT Q24H [facility] Last Admin: 12/14/17 17:18 Dose: 5 units Insulin Human Lispro (Humalog*) 0 units SUBCUT ACHS [facility]; Protocol Last Admin: 12/15/17 08:55 Dose: Not Given Levothyroxine Sodium (Synthroid Tab*) 75 mcg PO 0600 [facility] Last Admin: 12/15/17 07:09 Dose: 75 mcg Lorazepam (Ativan Tab(*)) 1 mg PO QID [facility] Last Admin: 12/15/17 08:53 Dose: 1 mg Ondansetron HCl (Zofran Odt Tab*) 8 mg SL Q6H PRN PRN Reason: NAUSEA/VOMITING Last Admin: 12/14/17 09:59 Dose: 8 mg Oxycodone HCl (Roxycodone Tab*) 15 mg PO Q4H PRN PRN Reason: PAIN Last Admin: 12/15/17 08:52 Dose: 15 mg Polyethylene Glycol/Electrolytes (Miralax*) 17 gm PO DAILY PRN PRN Reason: CONSTIPATION Zolpidem Tartrate (Ambien Tab*) 10 mg PO BEDTIME PRN PRN Reason: SLEEP Last Admin: 12/14/17 22:48 Dose: 10 mg Vital Signs - 8 hr 12/15/17 12/15/17 12/15/17 02:35 02:36 02:37 Temperature Pulse Rate Respiratory 22 22 22 Rate Blood Pressure (mmHg) O2 Sat by Pulse Oximetry 12/15/17 12/15/17 12/15/17 03:57 03:58 03:59 Temperature Pulse Rate Respiratory 19 16 18 Rate Blood Pressure (mmHg) O2 Sat by Pulse Oximetry 12/15/17 12/15/17 12/15/17 04:16 04:25 05:55 Temperature 97.7 F Pulse Rate 60 Respiratory 20 19 18 Rate Blood Pressure 140/72 (mmHg) O2 Sat by Pulse 94 Oximetry 12/15/17 12/15/17 12/15/17 05:56 05:57 05:58 Temperature Pulse Rate Respiratory 18 17 17 Rate Blood Pressure (mmHg) O2 Sat by Pulse Oximetry 12/15/17 12/15/17 12/15/17 06:10 06:11 07:53 Temperature Pulse Rate Respiratory 17 18 13 Rate Blood Pressure (mmHg) O2 Sat by Pulse Oximetry 12/15/17 12/15/17 12/15/17 07:54 08:52 08:53 Temperature Pulse Rate Respiratory 13 18 18 Rate Blood Pressure (mmHg) O2 Sat by Pulse Oximetry Oxygen Devices in Use Now: Nasal Cannula Appearance: 62 yo F in nAD, aAOx3 Eyes: No Scleral Icterus, PERRLA Ears/Nose/Mouth/Throat: NL Teeth, Lips, Gums, Mucous Membranes Moist Neck: NL Appearance and Movements; NL JVP, Trachea Midline Respiratory: Symmetrical Chest Expansion and Respiratory Effort, Clear to Auscultation Cardiovascular: NL Sounds; No Murmurs; No JVD, RRR Abdominal: NL Sounds; No Tenderness; No Distention, No Hepatosplenomegaly, - - large Lymphatic: No Cervical Adenopathy Extremities: No Clubbing, Cyanosis, - - +1 pitting pedal edema -resolving Skin: - - R lower leg abrasion noted, mild punctate areas or erythema resembling insect bites around the ankles-no cellulitis Neurological: Alert and Oriented x 3, NL Muscle Strength and Tone Result Diagrams: 12/14/17 00:00 12/15/17 06:17 Additional Lab and Data: Lab Results 12/14/17 Range/Units 00:00 WBC 5.7 (3.5-10.8) 10^3/ul RBC 3.77 L (4.00-5.40) 10^6/ul Hgb 11.6 L (12.0-16.0) g/dl Hct 35 (35-47) % MCV 94 (80-97) fL MCH 31 (27-31) pg MCHC 33 (31-36) g/dl RDW 17 H (10.5-15) % Plt Count 323 (150-450) 10^3/ul MPV 8.3 (7.4-10.4) um3 Neut % (Auto) 65.3 (38-83) % Lymph % (Auto) 24.2 L (25-47) % [place] % (Auto) 9.6 H (0-7) % Eos % (Auto) 0.5 (0-6) % Baso % (Auto) 0.4 (0-2) % Absolute Neuts (auto) 3.7 (1.5-7.7) 10^3/ul Absolute Lymphs (auto) 1.4 (1.0-4.8) 10^3/ul Absolute Monos (auto) 0.5 (0-0.8) 10^3/ul Absolute Eos (auto) 0 (0-0.6) 10^3/ul Absolute Basos (auto) 0 (0-0.2) 10^3/ul Absolute Nucleated RBC 0 10^3/ul Nucleated RBC % 0.1 Microbiology and Other Data: Microbiology 12/14/17 06:16 Nasal Screen MRSA (PCR) - Final Nasal Mrsa Not Detected Assess/Plan/Problems-Billing Assessment: Mrs. Barragan is a 62 yo F with PMH of morbid obesity, type 2 DM, chronic pain, HTN, HLD, hypothyroidism, h/o DVT, s/p pacemaker, recurrent eval for CP who presented to ED with c/o weight gain ,edema, CP - Patient Problems (1) CHF (congestive heart failure) Comment: suspect dietary indiscretion Echo pending cont Lasix IV and daily weights (2) Chest pain Comment: Trops negative. EKG unchanged. Previous extensive cardiac workup: h/p positive stress test following by a neg cardiac cath in 2014 chemical stress test today (3) Chronic pain Comment: Continue home oxycodone (4) Demand ischemia Comment: Troponin 0.0.4 Likely demand ischemia (5) Diabetes Comment: Continue Lispro SS. metformin held Lantus started 12/14/17 (6) Psychogenic tremor Comment: pt has h/o isolated head tremor with no neurological deficits that coincides with onset of severe anxiety most consistent with psychogenic tremor. (7) Right hip pain Comment: chronic Xray and CT was negative for fracture in 04/2017. - Ortho consult in 04/2017 - patient had hip replacement done in [place] [address] Sanderson in 2013 for hip pain. 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 She has had pain and "popping sound" for years, but it became worse over the last several months and even worse after her fall in . Dr. Villatoro d/w general surgery if mesh would be appropriate to correct the fascial defect, but the conclusion is she should be evaluated in a Tertiary center. (8) DVT prophylaxis Comment: - SQ Heparin. Status and Disposition: Inpatient. Pt has generalized deconditioning. Just d/c'd from [facility] last month after spending 6 months at [place]. Wishes to go back to [facility]. PT/OT eval ordered
[2017-12-15] MEDS ORDERED: Regadenoson* 0.4 MG/5 ML SYRINGE ONE (14:35)
--- NOTE | 2017-12-15 15:08 | RAD ---
Edited for charges. INDICATION: Chest pain, shortness of breath, abnormal EKG. Multiple risk factors for coronary artery disease. COMPARISON: October 03, 2016 TECHNIQUE: 10.870 mCi of Tc-99m Myoview were administered IV. SPECT images of the heart were obtained. Later on the same day. Under the direction of Dr. Ca, the patient was given an IV injection of a pharmacologic stress agent. Subsequently, the patient was given an IV injection of 26.600 mCi Tc-99m Myoview. SPECT images of the heart were obtained and a gated wall motion study was performed. FINDINGS: Gated wall motion images were obtained at stress and demonstrate hypokinesia most prominent at the apex. The calculated left ventricular ejection fraction is 53 % at stress. Estimated LEFT ventricular end diastolic volume is 141 mL. TID 1.19. Breast attenuation noted. Based on review of the attenuation corrected and non corrected images there is a solitary partial perfusion defect at stress involving the apex and apical anterior and apical septal segments with partial reversal at rest. IMPRESSION: #. Moderate region of probable stress-induced ischemia involving the apex and apical anterior and apical septal segments. Magnitude of breast attenuation limits assessment. The perfusion abnormality is similar to the 2017 exam. #. Dilated LEFT ventricle. Hypokinesia most marked at the apex. Estimated LEFT ventricular ejection fraction in the lower normal range at 53% ASSESSMENT: High risk based on nuclear portion given moderate stress-induced perfusion defect and LV dilatation. Based on imaging criteria from ACC/AHA 2002 Guideline Update for the Management of Patients With Chronic Stable Angina Table 23. Noninvasive Risk Stratification. MTDD
[2017-12-15] MEDS: Insulin GLARGINE(*) 1 UNITS UNIT SUBCUT SCH (16:47)
[2017-12-15] MEDS: Atorvastatin* 20 MG TAB PO SCH (21:06)
[2017-12-15] MEDS: Zolpidem TAB* 10 MG PO PRN (21:23)
--- NOTE | 2017-12-15 22:21 | ECHO ---
Amended Report Patient: AISHWARYA PEREZ [facility] Rec#: [id number] : 1955 Date: 12/15/2017 Age: 62y Height: 163 cm / 64.2 in Weight: 120 kg / 264.5 lbs Sex: F BSA: 2.21 Room#: [facility] Admit Date#: 12/14/2017 Type: Inpatient Referring: Bebeto Barroso MD Reading: Bruce Alex MD [employer]ights Specialist: Karen Zapata,RDCS,RDMS CC: Abelino Hdez DO CC: SARAH DALY Transthoracic Echocardiogram Indication: CP BP: 152/67 HR: 60 Rhythm: NSR Findings History: CAD, HTN, HLD, DM, pacemaker Technical Comments: The study quality is good. Left Ventricle: The left ventricular chamber size is mildly dilated. Moderate to severe concentric left ventricular hypertrophy is observed. Global left ventricular wall motion and contractility are within normal limits. There is normal left ventricular systolic function. The estimated ejection fraction is 55-60%. Abnormal left ventricular diastolic filling is observed, consistent with impaired relaxation. Left Atrium: The left atrium is mild to moderately dilated. Right Ventricle: The right ventricular chamber size and systolic function are within normal limits. The right ventricle wall thickness is mildly increased. A pacemaker wire is visualized in the right ventricle. Right Atrium: The right atrium is mildly dilated. A pacemaker wire is visualized in the right atrium. Aortic Valve: The aortic valve leaflets are mildly thickened. There is a trace of aortic regurgitation. There is no evidence of aortic stenosis. Mitral Valve: Moderate mitral annular calcification present. The mitral valve leaflets are mildly thickened. There is mild mitral regurgitation. There is no evidence of mitral stenosis. Tricuspid Valve: The tricuspid valve leaflets are normal. There is trace tricuspid regurgitation. There is evidence of borderline pulmonary hypertension. Pulmonic Valve: The pulmonic valve structure is not well visualized. Pericardium: There is no significant pericardial effusion. Aorta: The aortic root appears normal. The aortic arch is not well visualized. Pulmonary Artery: The main pulmonary artery is not well visualized. Venous: The inferior vena cava is dilated. There is a greater than 50% respiratory change in the inferior vena cava dimension. Summary: There are no significant changes when compared to the previous study done on 04/24/17 Conclusions Moderate to severe concentric left ventricular hypertrophy is observed. Global left ventricular wall motion and contractility are within normal limits. There is normal left ventricular systolic function. The estimated ejection fraction is 55-60%. The right ventricular chamber size and systolic function are within normal limits. A pacemaker wire is visualized in the right ventricle. There is a trace of aortic regurgitation. Moderate mitral annular calcification present. There is mild mitral regurgitation. There is trace tricuspid regurgitation. There is no significant pericardial effusion. There are no significant changes when compared to the previous study done on 04/24/17 Measurements Name Value Normal Range RVIDd (AP) 2D 3 cm (0.9 - 2.6) RVDdMajor (2D) 3.6 cm (2.2 - 4.4) RAd ISD 4CH 5.5 cm (3.4 - 4.9) RA (A4C)W 3.9 cm (2.9 - 4.6) IVSd (2D) 1.6 cm (0.6 - 1) LVPWd (2D) 1.5 cm (0.6 - 1) LVIDd (2D) 5.7 cm (3.6 - 5.4) LVIDs (2D) 3.4 cm - LV FS (2D) 41 % (25 - 45) Aortic Annulus 2 cm (1.4 - 2.6) Ao root diameter (2D) 3 cm (2.1 - 3.5) Ascending Ao 2.8 cm (2.1 - 3.4) LA dimension (AP) 2D 5.7 cm (2.3 - 3.8) LAd ISD 4CH 6.1 cm (2.9 - 5.3) LA ISD 4CH W 5.6 cm (2.5 - 4.5) Name Value Normal Range LA ESV BP (A/L) index 41 ml/m2 - Name Value Normal Range MV E-wave Vmax 0.8 m/sec - MV deceleration time 140 msec - MV A-wave Vmax 0.9 m/sec - MV E:A ratio 0.9 ratio - P. vein S-wave Vmax 0.4 m/sec - P. vein D-wave Vmax 0.5 m/sec - P. vein S:D Vmax ratio 0.9 ratio - P. vein A-wave duration 129 msec - LV septal e' Vmax 0.04 m/sec - LV lateral e' Vmax 0.07 m/sec - LV E:e' septal ratio 20.5 ratio - LV E:e' lateral ratio 13 ratio - Name Value Normal Range AV Vmax 1.8 m/sec - AV VTI 37.5 cm - AV peak gradient 14 mmHg - AV mean gradient 7 mmHg - LVOT Vmax 1.4 m/sec - LVOT VTI 30 cm - LVOT peak gradient 8 mmHg - LVOT mean gradient 4 mmHg - CANDI Vmax 0.8 m/sec - Name Value Normal Range MV Vmax 1.1 m/sec - MV VTI 41 cm - MV peak gradient 5 mmHg - MV mean gradient 2 mmHg - MV PHT 97 msec - MVA (PHT) 2.3 cm2 - Name Value Normal Range TR Vmax 2.5 m/sec - TR peak gradient 25 mmHg - RAP 8 mmHg - RVSP 33 mmHg - IVC diameter 2.8 cm - Name Value Normal Range PV Vmax 0.6 m/sec - PV peak gradient 1.4 mmHg -
[2017-12-16] MEDS: oxyCODONE TAB* 5 MG TAB PO PRN ×6 (02:00→22:06)
[2017-12-16] MEDS: Levothyroxine TAB* 75 MCG TAB PO SCH (05:17)
[2017-12-16] MEDS: Heparin VIAL(*) 5000 UNITS/ML VIAL (FIVE THOUSAND) SUBCUT SCH ×3 (05:17→21:27)
[2017-12-16 06:13] LABS: EGFR Non-African American 96.9 (>60)
[2017-12-16] MEDS: Insulin LISPRO* 1 UNITS UNIT SUBCUT SCH ×4 (08:54→22:04)
[2017-12-16] MEDS: Furosemide IV* 10 MG/ML 10 ML VIAL (100 MG) IV SCH ×2 (08:54→16:54)
[2017-12-16] MEDS: Aspirin EC TAB* 81 MG TAB.EC PO SCH (08:55)
[2017-12-16] MEDS: Cyclobenzaprine TAB* 10 MG PO PRN ×2 (08:55→13:49)
[2017-12-16] MEDS: Docusate CAP* 100 MG PO SCH ×2 (08:55→21:26)
[2017-12-16] MEDS: Diltiazem CD CAP* 240 MG PO SCH (08:55)
[2017-12-16] MEDS: LORazepam TAB(*) 1 MG PO SCH ×4 (08:56→21:26)
--- NOTE | 2017-12-16 10:36 | CONS ---
CARDIOLOGY CONSULTATION DATE OF CONSULT: 12/16/2017. INDICATION FOR CONSULTATION: Chest pain. HISTORY OF PRESENT ILLNESS: The patient is a 62-year-old woman with a history of chest pain, diabetes, obesity, and hypertension who was admitted to the hospital with chest pain. The patient has had numerous admissions for chest pain in the past. The patient states that she had chest pain. It was difficult for her to describe what kind of chest pain it was. It was difficult to described the intensity. She said maybe it was about a 5/10. It lasted for perhaps a half an hour, but she is unsure how long this discomfort lasted. She was admitted to the hospital. Her initial troponin level was 0.04, her second troponin was the same. Her EKG showed no ischemic changes. The patient underwent a chemical nuclear stress test yesterday which I personally reviewed. There is a large defect that is essentially fixed in the anterior wall. There may be some mild reversibility on the resting images. There is a large attenuation from breast tissue. When the images were corrected for breast attenuation, they are essentially normal perfusion. Her LV function was normal. Her TID is 1.21 which is mildly elevated; however, for a chemical nuclear stress test, it is within normal range. In speaking with the patient today, she denies any chest pain. The patient has had cardiac evaluations in the past. She had a cardiac catheterization in 2015 up in [place] at [facility] which showed normal coronary arteries. The patient was admitted to the hospital in September of 2016. Her presentation was exactly the same. Her chemical nuclear stress test was exactly the same with a large anterior defect that corrected with attenuation correction. PAST MEDICAL HISTORY: Significant for hypertension, hypothyroidism, hyperlipidemia, and obesity. PAST SURGICAL HISTORY: Knee replacement. OUTPATIENT MEDICATIONS: 1. Vitamin D supplement. 2. Ambien 10 mg at bedtime prn. 3. Multivitamin a day. 4. Metformin 1,000 mg b.i.d. 5. Avapro 150 mg a day. 6. Lasix 40 mg a day. 7. Synthroid 75 mcg a day. 8. Aspirin 81 mg a day. 9. Flexeril 10 mg a day. 10. Diltiazem CD 240 mg a day. 11. Atorvastatin 20 mg a day. 12. Ativan as needed. ALLERGIES: CEFAZOLIN, CITALOPRAM, NAPROXEN. SOCIAL HISTORY: The patient had been at a correction for the past six months. She just recently returned home. She denies tobacco or alcohol use. REVIEW OF SYSTEMS: Negative for fevers or chills, negative for changes in bowel or bladder habits. PHYSICAL EXAM: Vital Signs: Height 5'4", weight 265 pounds. Temperature 97, heart rate 64, blood pressure 113/46, respiratory rate 16, oxygen saturation 98 percent. HEENT: Sclerae anicteric. Oropharynx is pink without erythema. Neck : Carotids are 2+ without bruits. JVD is normal. Thyroid is normal. Cardiac exam: S1, S2 without any murmurs, rubs, or gallops. Lungs: Clear to auscultation. Extremities: Show 1+ edema. She has 2+ pulses throughout. Abdomen: The patient's abdomen is obese, soft, nontender, nondistended with normoactive bowel sounds. Neuro: The patient is awake, alert, and oriented. DIAGNOSTIC STUDIES/LAB DATA: Chemistries are within normal limits, BUN 9, creatinine 0.6, BNP 175. CBC within normal limits. The patient did have an echocardiogram yesterday which showed normal LV size and systolic function. No significant valvular abnormalities. No changes from her echocardiogram in March 2017. IMPRESSION: This is a 62-year-old female who was admitted to the hospital with chest pain. The patient's troponin levels were unremarkable. Her EKG showed no dynamic EKG changes. Her stress test was interpreted by Radiology as having an intermediate to high risk because of some ischemic changes and LV dilatation. I personally reviewed the images. I am not convinced that there is any evidence of ischemia. It is unchanged from her stress test back in September of 2016 and there is no evidence of reverse of LV dilatation. At this point, I am not convinced that the patient needs any further work-up for her chest pain. I think the patient is still at low risk for myocardial infarction. The patient's medications appear to be appropriate. [id number]/[facility] #: [id number] MTDD
--- NOTE | 2017-12-16 13:48 | PN ---
Subjective Date of Service: 12/16/17 Interval History: when I entered pt's room pt was sleeping comfortably and snoring, right after awakening she requested more oxycodone due to pr hip pain at 8. We had a long discussion and it was explained to pt that continuation of increase in her narcotic pain medications for chronic pain can be detrimental to her health. Pt otherwise denies CP/SOB, feet are less swollen today Objective Active Medications: Acetaminophen (Tylenol Tab*) 650 mg PO Q6H PRN PRN Reason: FEVER/PAIN Last Admin: 12/15/17 02:35 Dose: 650 mg Aspirin (Aspirin Ec Tab*) 81 mg PO DAILY [facility] Last Admin: 12/16/17 08:55 Dose: 81 mg Atorvastatin Calcium (Lipitor*) 20 mg PO BEDTIME [facility] Last Admin: 12/15/17 21:06 Dose: 20 mg Cyclobenzaprine HCl (Flexeril Tab*) 10 mg PO TID PRN PRN Reason: SPASMS Last Admin: 12/16/17 08:55 Dose: 10 mg Diltiazem HCl (Cardizem Cd Cap*) 240 mg PO DAILY [facility] Last Admin: 12/16/17 08:55 Dose: 240 mg Docusate Sodium (Colace Cap*) 200 mg PO BID [facility] Last Admin: 12/16/17 08:55 Dose: 200 mg Furosemide (Lasix Iv*) 40 mg IV 0800,1700 [facility] Last Admin: 12/16/17 08:54 Dose: 40 mg Heparin Sodium (Porcine) (Heparin Vial(*)) 5,000 units SUBCUT Q8HR [facility] Last Admin: 12/16/17 05:17 Dose: 5,000 units Insulin Glargine (Lantus(*)) 5 units SUBCUT Q24H [facility] Last Admin: 12/15/17 16:47 Dose: 5 units Insulin Human Lispro (Humalog*) 0 units SUBCUT ACHS [facility]; Protocol Last Admin: 12/16/17 12:32 Dose: 3 units Levothyroxine Sodium (Synthroid Tab*) 75 mcg PO 0600 [facility] Last Admin: 12/16/17 05:17 Dose: 75 mcg Lorazepam (Ativan Tab(*)) 1 mg PO QID [facility] Last Admin: 12/16/17 12:32 Dose: 1 mg Ondansetron HCl (Zofran Odt Tab*) 8 mg SL Q6H PRN PRN Reason: NAUSEA/VOMITING Last Admin: 12/14/17 09:59 Dose: 8 mg Oxycodone HCl (Roxycodone Tab*) 15 mg PO Q4H PRN PRN Reason: PAIN Last Admin: 12/16/17 10:03 Dose: 15 mg Polyethylene Glycol/Electrolytes (Miralax*) 17 gm PO DAILY PRN PRN Reason: CONSTIPATION Last Admin: 12/16/17 10:03 Dose: 17 gm Zolpidem Tartrate (Ambien Tab*) 10 mg PO BEDTIME PRN PRN Reason: SLEEP Last Admin: 12/15/17 21:23 Dose: 10 mg Vital Signs - 8 hr 12/16/17 12/16/17 12/16/17 05:59 07:48 08:52 Temperature 98.0 F Pulse Rate 58 Respiratory 16 16 20 Rate Blood Pressure 143/71 (mmHg) O2 Sat by Pulse 96 Oximetry 12/16/17 12/16/17 12/16/17 08:55 08:56 10:03 Temperature Pulse Rate Respiratory 20 20 20 Rate Blood Pressure (mmHg) O2 Sat by Pulse Oximetry 12/16/17 12/16/17 12/16/17 11:59 12:02 12:32 Temperature Pulse Rate Respiratory 20 18 16 Rate Blood Pressure (mmHg) O2 Sat by Pulse Oximetry Oxygen Devices in Use Now: Nasal Cannula Appearance: 62 yo F in nAD, AAOx3 Eyes: No Scleral Icterus, PERRLA Ears/Nose/Mouth/Throat: NL Teeth, Lips, Gums, Mucous Membranes Moist Neck: NL Appearance and Movements; NL JVP, Trachea Midline Respiratory: Symmetrical Chest Expansion and Respiratory Effort, Clear to Auscultation Cardiovascular: NL Sounds; No Murmurs; No JVD, RRR Abdominal: NL Sounds; No Tenderness; No Distention Lymphatic: No Cervical Adenopathy Extremities: No Clubbing, Cyanosis, - - trace pedal edema b/l Skin: No Nodules or Sclerosis, - - excoriations b/l distal LE's Neurological: Alert and Oriented x 3, NL Muscle Strength and Tone Result Diagrams: 12/14/17 00:00 12/16/17 08:42 Additional Lab and Data: Lab Results 12/14/17 Range/Units 00:00 WBC 5.7 (3.5-10.8) 10^3/ul RBC 3.77 L (4.00-5.40) 10^6/ul Hgb 11.6 L (12.0-16.0) g/dl Hct 35 (35-47) % MCV 94 (80-97) fL MCH 31 (27-31) pg MCHC 33 (31-36) g/dl RDW 17 H (10.5-15) % Plt Count 323 (150-450) 10^3/ul MPV 8.3 (7.4-10.4) um3 Neut % (Auto) 65.3 (38-83) % Lymph % (Auto) 24.2 L (25-47) % [place] % (Auto) 9.6 H (0-7) % Eos % (Auto) 0.5 (0-6) % Baso % (Auto) 0.4 (0-2) % Absolute Neuts (auto) 3.7 (1.5-7.7) 10^3/ul Absolute Lymphs (auto) 1.4 (1.0-4.8) 10^3/ul Absolute Monos (auto) 0.5 (0-0.8) 10^3/ul Absolute Eos (auto) 0 (0-0.6) 10^3/ul Absolute Basos (auto) 0 (0-0.2) 10^3/ul Absolute Nucleated RBC 0 10^3/ul Nucleated RBC % 0.1 Microbiology and Other Data: Microbiology 12/14/17 06:16 Nasal Screen MRSA (PCR) - Final Nasal Mrsa Not Detected Assess/Plan/Problems-Billing Assessment: Mrs. Barragan is a 62 yo F with PMH of morbid obesity, type 2 DM, chronic pain, HTN, HLD, hypothyroidism, h/o DVT, s/p pacemaker, recurrent eval for CP who presented to ED with c/o weight gain ,edema, CP - Patient Problems (1) CHF (congestive heart failure) Comment: suspect dietary indiscretion Echo shows mod to sever LVH, EF55% cont Lasix IV today, then switch to PO (2) Chest pain Comment: Trops negative. EKG unchanged. Previous extensive cardiac workup: h/p positive stress test following by a neg cardiac cath in 2014 chemical stress test on 12/15/17 same as 2017-intermediate risk. Appreciate cardiology consult- no further testing/procedures recommended. (3) Chronic pain Comment: Continue home oxycodone We had a long discussion and it was explained to pt that continuation of increase in her narcotic pain medications for chronic pain can be detrimental to her health. (4) Demand ischemia Comment: Troponin 0.0.4 Likely demand ischemia (5) Diabetes Comment: Continue Lispro SS. metformin restarted today Lantus started 12/14/17-likely can be discontinued at d/c (6) Psychogenic tremor Comment: pt has h/o isolated head tremor with no neurological deficits that coincides with onset of severe anxiety most consistent with psychogenic tremor. (7) Right hip pain Comment: chronic Xray and CT was negative for fracture in 04/2017. - Ortho consult in 04/2017 - patient had hip replacement done in [place] [address] Sanderson in 2013 for hip pain. 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 She has had pain and "popping sound" for years, but it became worse over the last several months and even worse after her fall in . Dr. Villatoro d/w general surgery if mesh would be appropriate to correct the fascial defect, but the conclusion is she should be evaluated in a Tertiary center. (8) DVT prophylaxis Comment: - SQ Heparin. Status and Disposition: Inpatient. Pt has generalized deconditioning. Just d/c'd from [facility] last month after spending 6 months at [place]. Wishes to go back to [facility]. Placement pending
[2017-12-16] MEDS: Insulin GLARGINE(*) 1 UNITS UNIT SUBCUT SCH (16:54)
[2017-12-16] MEDS: Atorvastatin* 20 MG TAB PO SCH (21:26)
[2017-12-16] MEDS: Zolpidem TAB* 10 MG PO PRN (22:06)
[2017-12-17] MEDS: oxyCODONE TAB* 5 MG TAB PO PRN ×5 (03:12→22:14)
[2017-12-17] MEDS: Levothyroxine TAB* 75 MCG TAB PO SCH (06:29)
[2017-12-17] MEDS: Heparin VIAL(*) 5000 UNITS/ML VIAL (FIVE THOUSAND) SUBCUT SCH ×3 (06:29→22:07)
--- NOTE | 2017-12-17 08:28 | PN ---
Subjective Date of Service: 12/17/17 Interval History: Pt is feeling better. She states her legs and feet are much less edematous than when she presented to the hospital. She continues to have pain in her feet and legs however. She denies any SOB. Pt is wanting to wait for a rehab bed Objective Active Medications: Acetaminophen (Tylenol Tab*) 650 mg PO Q6H PRN PRN Reason: FEVER/PAIN Last Admin: 12/15/17 02:35 Dose: 650 mg Aspirin (Aspirin Ec Tab*) 81 mg PO DAILY [facility] Last Admin: 12/16/17 08:55 Dose: 81 mg Atorvastatin Calcium (Lipitor*) 20 mg PO BEDTIME [facility] Last Admin: 12/16/17 21:26 Dose: 20 mg Cyclobenzaprine HCl (Flexeril Tab*) 10 mg PO TID PRN PRN Reason: SPASMS Last Admin: 12/16/17 13:49 Dose: 10 mg Diltiazem HCl (Cardizem Cd Cap*) 240 mg PO DAILY [facility] Last Admin: 12/16/17 08:55 Dose: 240 mg Docusate Sodium (Colace Cap*) 200 mg PO BID [facility] Last Admin: 12/16/17 21:26 Dose: 200 mg Furosemide (Lasix Tab*) 40 mg PO DAILY [facility] Furosemide (Lasix Tab*) 20 mg PO QPM [facility] Heparin Sodium (Porcine) (Heparin Vial(*)) 5,000 units SUBCUT Q8HR [facility] Last Admin: 12/17/17 06:29 Dose: 5,000 units Insulin Glargine (Lantus(*)) 5 units SUBCUT Q24H [facility] Last Admin: 12/16/17 16:54 Dose: 5 units Insulin Human Lispro (Humalog*) 0 units SUBCUT ACHS [facility]; Protocol Last Admin: 12/16/17 22:04 Dose: 6 units Levothyroxine Sodium (Synthroid Tab*) 75 mcg PO 0600 [facility] Last Admin: 12/17/17 06:29 Dose: 75 mcg Lorazepam (Ativan Tab(*)) 1 mg PO QID [facility] Last Admin: 12/16/17 21:26 Dose: 1 mg Ondansetron HCl (Zofran Odt Tab*) 8 mg SL Q6H PRN PRN Reason: NAUSEA/VOMITING Last Admin: 12/14/17 09:59 Dose: 8 mg Oxycodone HCl (Roxycodone Tab*) 15 mg PO Q4H PRN PRN Reason: PAIN Last Admin: 12/17/17 03:12 Dose: 15 mg Polyethylene Glycol/Electrolytes (Miralax*) 17 gm PO DAILY PRN PRN Reason: CONSTIPATION Last Admin: 12/16/17 10:03 Dose: 17 gm Zolpidem Tartrate (Ambien Tab*) 10 mg PO BEDTIME PRN PRN Reason: SLEEP Last Admin: 12/16/17 22:06 Dose: 10 mg Vital Signs - 8 hr 12/17/17 12/17/17 12/17/17 03:12 03:46 05:53 Temperature 97.9 F Pulse Rate 67 Respiratory 18 16 18 Rate Blood Pressure 137/62 (mmHg) O2 Sat by Pulse 92 Oximetry 12/17/17 12/17/17 12/17/17 06:38 06:39 07:10 Temperature Pulse Rate Respiratory 18 18 17 Rate Blood Pressure (mmHg) O2 Sat by Pulse Oximetry 12/17/17 12/17/17 12/17/17 07:12 07:13 07:14 Temperature Pulse Rate Respiratory 17 16 18 Rate Blood Pressure (mmHg) O2 Sat by Pulse Oximetry 12/17/17 12/17/17 12/17/17 07:15 07:16 07:51 Temperature Pulse Rate Respiratory 18 17 18 Rate Blood Pressure (mmHg) O2 Sat by Pulse Oximetry 12/17/17 07:59 Temperature 98.2 F Pulse Rate 68 Respiratory 16 Rate Blood Pressure 130/71 (mmHg) O2 Sat by Pulse 95 Oximetry Oxygen Devices in Use Now: Nasal Cannula Appearance: Middle aged morbidly obese female sitting up in a chair, eating breakfast, NAD Eyes: No Scleral Icterus Ears/Nose/Mouth/Throat: Mucous Membranes Moist Respiratory: Symmetrical Chest Expansion and Respiratory Effort, Clear to Auscultation Cardiovascular: NL Sounds; No Murmurs; No JVD, RRR, - - minimal LE edema bilaterally Abdominal: NL Sounds; No Tenderness; No Distention Extremities: No Clubbing, Cyanosis Skin: No Nodules or Sclerosis Neurological: Alert and Oriented x 3 Result Diagrams: 12/14/17 00:00 12/16/17 08:42 Additional Lab and Data: Lab Results 12/14/17 Range/Units 00:00 WBC 5.7 (3.5-10.8) 10^3/ul RBC 3.77 L (4.00-5.40) 10^6/ul Hgb 11.6 L (12.0-16.0) g/dl Hct 35 (35-47) % MCV 94 (80-97) fL MCH 31 (27-31) pg MCHC 33 (31-36) g/dl RDW 17 H (10.5-15) % Plt Count 323 (150-450) 10^3/ul MPV 8.3 (7.4-10.4) um3 Neut % (Auto) 65.3 (38-83) % Lymph % (Auto) 24.2 L (25-47) % [place] % (Auto) 9.6 H (0-7) % Eos % (Auto) 0.5 (0-6) % Baso % (Auto) 0.4 (0-2) % Absolute Neuts (auto) 3.7 (1.5-7.7) 10^3/ul Absolute Lymphs (auto) 1.4 (1.0-4.8) 10^3/ul Absolute Monos (auto) 0.5 (0-0.8) 10^3/ul Absolute Eos (auto) 0 (0-0.6) 10^3/ul Absolute Basos (auto) 0 (0-0.2) 10^3/ul Absolute Nucleated RBC 0 10^3/ul Nucleated RBC % 0.1 Microbiology and Other Data: Microbiology 12/14/17 06:16 Nasal Screen MRSA (PCR) - Final Nasal Mrsa Not Detected Assess/Plan/Problems-Billing Ms. Barragan is a 62 yo F with PMHx of morbid obesity, type 2 DM, chronic pain, HTN , HLD, hypothyroidism, h/o DVT, s/p pacemaker, recurrent eval for CP who presented to ED with c/o weight gain ,edema, CP. - Patient Problems (1) Right hip pain Current Visit: Yes Status: Acute Code(s): M25.551 - PAIN IN RIGHT HIP SNOMED Code(s): 17676345 Comment: Chronic issue for the patient. [place] to not be able to be managed surgically at [facility]. Pt needs to be evaluated at a tertiary care center for advanced orthopedic services. (2) CHF (congestive heart failure) Current Visit: Yes Status: Acute Code(s): I50.9 - HEART FAILURE, UNSPECIFIED SNOMED Code(s): 09362839 Comment: The patient presented to the ER in decompensated diastolic CHF. Decompensation likely secondary to dietary indiscretions. She has lost 9lb since her admission. Resume home dose of oral lasix today. Wean off O2. No change in echo from 03/2017. (3) Chest pain Current Visit: No Status: Acute Code(s): R07.9 - CHEST PAIN, UNSPECIFIED SNOMED Code(s): 19618073 Comment: Appreciate cardiology input on abnormal stress test. No felt to need any further cardiac work up as Dr. Alex did not feel there was a significant burden of ischemia. Stress test unchanged from 09/2016. (4) Chronic pain Current Visit: Yes Status: Acute Code(s): G89.29 - OTHER CHRONIC PAIN SNOMED Code(s): 02676187 Comment: Continue home dose of oxycodone without increase. (5) Diabetes Current Visit: Yes Status: Acute Code(s): E11.9 - TYPE 2 DIABETES MELLITUS WITHOUT COMPLICATIONS SNOMED Code(s): 01970554 Comment: Pt is type II diabetic. Check [id number] do not have a value in our system. Resume metformin today. Sugars here are uncontrolled. The patient in addition is morbidly obese with a BMI of 45. Will reinforce diet with the patient. She can not work on exercise currently due to severe R hip pain. (6) Hypertension Current Visit: Yes Status: Acute Code(s): I10 - ESSENTIAL (PRIMARY) HYPERTENSION SNOMED Code(s): 15241542 Comment: BP under fair control. Resume ARB today. (7) Hypothyroidism Current Visit: No Status: Acute Code(s): E03.9 - HYPOTHYROIDISM, UNSPECIFIED SNOMED Code(s): 93883930 Comment: Continue synthroid at home dose for now. Check TSH as last check in 04/11 revealed the TSH to be very low at 0.01. (8) DVT prophylaxis Current Visit: Yes Status: Acute Code(s): JAY0025 - SNOMED Code(s): 481729716 Comment: SQ Heparin. (9) Full code status Current Visit: Yes Status: Acute Code(s): Z78.9 - OTHER SPECIFIED HEALTH STATUS SNOMED Code(s): 680338670 Status and Disposition: await rehab bed offer
[2017-12-17] MEDS: Aspirin EC TAB* 81 MG TAB.EC PO SCH (08:32)
[2017-12-17] MEDS: Insulin LISPRO* 1 UNITS UNIT SUBCUT SCH ×4 (08:32→22:07)
[2017-12-17] MEDS: LORazepam TAB(*) 1 MG PO SCH ×4 (08:32→22:06)
[2017-12-17] MEDS: Furosemide TAB* 40 MG PO SCH (08:32)
[2017-12-17] MEDS: Diltiazem CD CAP* 240 MG PO SCH (08:32)
[2017-12-17] MEDS: Docusate CAP* 100 MG PO SCH (08:34)
[2017-12-17] MEDS: metFORMIN* 1,000 MG TAB PO SCH ×2 (09:28→22:07)
[2017-12-17] MEDS: Losartan TAB* 25 MG PO SCH (09:28)
[2017-12-17] MEDS: Cyclobenzaprine TAB* 10 MG PO PRN (11:22)
[2017-12-17] MEDS: Insulin GLARGINE(*) 1 UNITS UNIT SUBCUT SCH (16:58)
[2017-12-17] MEDS: Furosemide TAB* 20 MG PO SCH (16:58)
[2017-12-17] MEDS: Atorvastatin* 20 MG TAB PO SCH (22:06)
[2017-12-17] MEDS: Zolpidem TAB* 10 MG PO PRN (22:16)
[2017-12-18] MEDS: oxyCODONE TAB* 5 MG TAB PO PRN ×5 (02:32→22:00)
[2017-12-18] MEDS: Heparin VIAL(*) 5000 UNITS/ML VIAL (FIVE THOUSAND) SUBCUT SCH ×3 (05:54→21:53)
[2017-12-18] MEDS: Levothyroxine TAB* 75 MCG TAB PO SCH (05:54)
[2017-12-18] MEDS: Losartan TAB* 25 MG PO SCH (08:10)
[2017-12-18] MEDS: LORazepam TAB(*) 1 MG PO SCH ×4 (08:11→21:56)
[2017-12-18] MEDS: Furosemide TAB* 40 MG PO SCH (08:11)
[2017-12-18] MEDS: Aspirin EC TAB* 81 MG TAB.EC PO SCH (08:11)
[2017-12-18] MEDS: metFORMIN* 1,000 MG TAB PO SCH ×2 (08:11→21:56)
[2017-12-18] MEDS: Diltiazem CD CAP* 240 MG PO SCH (08:11)
[2017-12-18] MEDS: Insulin LISPRO* 1 UNITS UNIT SUBCUT SCH ×4 (08:22→21:53)
--- NOTE | 2017-12-18 08:59 | PN ---
Subjective Date of Service: 12/18/17 Interval History: Pt is feeling about the same. She does not want to go to one of the rehabs she has a bed offer for. Asked about [facility] and she refused there as well. She continues to c/o pain in her feet and toes bilaterally. No SOB. Objective Active Medications: Acetaminophen (Tylenol Tab*) 650 mg PO Q6H PRN PRN Reason: FEVER/PAIN Last Admin: 12/15/17 02:35 Dose: 650 mg Aspirin (Aspirin Ec Tab*) 81 mg PO DAILY [facility] Last Admin: 12/18/17 08:11 Dose: 81 mg Atorvastatin Calcium (Lipitor*) 20 mg PO BEDTIME [facility] Last Admin: 12/17/17 22:06 Dose: 20 mg Cyclobenzaprine HCl (Flexeril Tab*) 10 mg PO TID PRN PRN Reason: SPASMS Last Admin: 12/17/17 11:22 Dose: 10 mg Diltiazem HCl (Cardizem Cd Cap*) 240 mg PO DAILY [facility] Last Admin: 12/18/17 08:11 Dose: 240 mg Docusate Sodium (Colace Cap*) 200 mg PO BID PRN PRN Reason: CONSTIPATION Furosemide (Lasix Tab*) 40 mg PO DAILY [facility] Last Admin: 12/18/17 08:11 Dose: 40 mg Furosemide (Lasix Tab*) 20 mg PO QPM [facility] Last Admin: 12/17/17 16:58 Dose: 20 mg Heparin Sodium (Porcine) (Heparin Vial(*)) 5,000 units SUBCUT Q8HR [facility] Last Admin: 12/18/17 05:54 Dose: 5,000 units Insulin Glargine (Lantus(*)) 5 units SUBCUT Q24H [facility] Last Admin: 12/17/17 16:58 Dose: 5 units Insulin Human Lispro (Humalog*) 0 units SUBCUT ACHS [facility]; Protocol Last Admin: 12/18/17 08:22 Dose: 3 units Levothyroxine Sodium (Synthroid Tab*) 75 mcg PO 0600 [facility] Last Admin: 12/18/17 05:54 Dose: 75 mcg Lorazepam (Ativan Tab(*)) 1 mg PO QID [facility] Last Admin: 12/18/17 08:11 Dose: 1 mg Losartan Potassium (Cozaar Tab*) 50 mg PO DAILY [facility] Last Admin: 12/18/17 08:10 Dose: 50 mg Metformin HCl (Glucophage*) 1,000 mg PO BID [facility] Last Admin: 12/18/17 08:11 Dose: 1,000 mg Ondansetron HCl (Zofran Odt Tab*) 8 mg SL Q6H PRN PRN Reason: NAUSEA/VOMITING Last Admin: 12/14/17 09:59 Dose: 8 mg Oxycodone HCl (Roxycodone Tab*) 15 mg PO Q4H PRN PRN Reason: PAIN Last Admin: 12/18/17 08:09 Dose: 15 mg Polyethylene Glycol/Electrolytes (Miralax*) 17 gm PO DAILY PRN PRN Reason: CONSTIPATION Last Admin: 12/16/17 10:03 Dose: 17 gm Zolpidem Tartrate (Ambien Tab*) 10 mg PO BEDTIME PRN PRN Reason: SLEEP Last Admin: 12/17/17 22:16 Dose: 10 mg Vital Signs - 8 hr 12/18/17 12/18/17 12/18/17 01:31 01:32 02:32 Temperature Pulse Rate Respiratory 14 14 20 Rate Blood Pressure (mmHg) O2 Sat by Pulse Oximetry 12/18/17 12/18/17 12/18/17 03:17 05:10 07:55 Temperature 97.6 F 98.3 F Pulse Rate 65 68 Respiratory 18 12 18 Rate Blood Pressure 134/54 128/53 (mmHg) O2 Sat by Pulse 95 97 Oximetry 12/18/17 12/18/17 08:09 08:11 Temperature Pulse Rate Respiratory 18 18 Rate Blood Pressure (mmHg) O2 Sat by Pulse Oximetry Oxygen Devices in Use Now: Nasal Cannula Appearance: Middle aged morbidly obese female sitting up in bed, NAD Eyes: No Scleral Icterus Ears/Nose/Mouth/Throat: Mucous Membranes Moist Respiratory: Symmetrical Chest Expansion and Respiratory Effort, Clear to Auscultation - diminished throughout Cardiovascular: NL Sounds; No Murmurs; No JVD, RRR, - - trace edema Abdominal: NL Sounds; No Tenderness; No Distention Extremities: No Clubbing, Cyanosis Skin: No Nodules or Sclerosis Neurological: Alert and Oriented x 3 Result Diagrams: 12/14/17 00:00 12/16/17 08:42 Additional Lab and Data: Lab Results 12/14/17 Range/Units 00:00 WBC 5.7 (3.5-10.8) 10^3/ul RBC 3.77 L (4.00-5.40) 10^6/ul Hgb 11.6 L (12.0-16.0) g/dl Hct 35 (35-47) % MCV 94 (80-97) fL MCH 31 (27-31) pg MCHC 33 (31-36) g/dl RDW 17 H (10.5-15) % Plt Count 323 (150-450) 10^3/ul MPV 8.3 (7.4-10.4) um3 Neut % (Auto) 65.3 (38-83) % Lymph % (Auto) 24.2 L (25-47) % [place] % (Auto) 9.6 H (0-7) % Eos % (Auto) 0.5 (0-6) % Baso % (Auto) 0.4 (0-2) % Absolute Neuts (auto) 3.7 (1.5-7.7) 10^3/ul Absolute Lymphs (auto) 1.4 (1.0-4.8) 10^3/ul Absolute Monos (auto) 0.5 (0-0.8) 10^3/ul Absolute Eos (auto) 0 (0-0.6) 10^3/ul Absolute Basos (auto) 0 (0-0.2) 10^3/ul Absolute Nucleated RBC 0 10^3/ul Nucleated RBC % 0.1 Microbiology and Other Data: Microbiology 12/14/17 06:16 Nasal Screen MRSA (PCR) - Final Nasal Mrsa Not Detected Assess/Plan/Problems-Billing Ms. Barragan is a 62 yo F with PMHx of morbid obesity, type 2 DM, chronic pain, HTN , HLD, hypothyroidism, h/o DVT, s/p pacemaker, recurrent eval for CP who presented to ED with c/o weight gain ,edema, CP. - Patient Problems (1) Right hip pain Current Visit: Yes Status: Acute Code(s): M25.551 - PAIN IN RIGHT HIP SNOMED Code(s): 90365087 Comment: Chronic issue for the patient. Pt states she was never told her issue could not be managed at [facility]. Looking back through old notes the patient was seen by Dr. Sanderson in 2013 who said she had no surgical options at this time as there was no clear defect. Dr. Villatoro saw the patient in 2017 who also stated he could not offer a surgical repair. The patient wants to follow back up with Dr. Sanderson for another opinion. She does not want to go to far away for rehab. Sending info to [facility]. (2) CHF (congestive heart failure) Current Visit: Yes Status: Acute Code(s): I50.9 - HEART FAILURE, UNSPECIFIED SNOMED Code(s): 28035390 Comment: The patient presented to the ER in decompensated diastolic CHF. Decompensation likely secondary to dietary indiscretions. Continue home dose of oral lasix today. Wean off O2. No change in echo from 03/2017. (3) Chest pain Current Visit: Yes Status: Acute Code(s): R07.9 - CHEST PAIN, UNSPECIFIED SNOMED Code(s): 48556921 Comment: Appreciate cardiology input on abnormal stress test. No felt to need any further cardiac work up as Dr. Alex did not feel there was a significant burden of ischemia. Stress test unchanged from 09/2016. (4) Chronic pain Current Visit: Yes Status: Acute Code(s): G89.29 - OTHER CHRONIC PAIN SNOMED Code(s): 41731584 Comment: Continue home dose of oxycodone without increase. (5) Diabetes Current Visit: Yes Status: Acute Code(s): E11.9 - TYPE 2 DIABETES MELLITUS WITHOUT COMPLICATIONS SNOMED Code(s): 89591629 Comment: Sugars are uncontrolled but better with metformin. Her A1c is markedly elevated at 11.9%. Will continue lantus but increase to 8 units daily. (6) Hypertension Current Visit: Yes Status: Acute Code(s): I10 - ESSENTIAL (PRIMARY) HYPERTENSION SNOMED Code(s): 83142379 Comment: BP under control. Continue ARB. (7) Hypothyroidism Current Visit: Yes Status: Acute Code(s): E03.9 - HYPOTHYROIDISM, UNSPECIFIED SNOMED Code(s): 21362150 Comment: TSH in good range. Continue current dose of synthroid. (8) DVT prophylaxis Current Visit: Yes Status: Acute Code(s): OUM2501 - SNOMED Code(s): 163897721 Comment: SQ Heparin. (9) Full code status Current Visit: Yes Status: Acute Code(s): Z78.9 - OTHER SPECIFIED HEALTH STATUS SNOMED Code(s): 628449610 Status and Disposition: await rehab bed offer
[2017-12-18] MEDS: Docusate CAP* 100 MG PO PRN (09:19)
[2017-12-18] MEDS: Insulin GLARGINE(*) 1 UNITS UNIT SUBCUT SCH (16:50)
[2017-12-18] MEDS: Furosemide TAB* 20 MG PO SCH (17:27)
[2017-12-18] MEDS: Zolpidem TAB* 10 MG PO PRN (21:56)
[2017-12-18] MEDS: Atorvastatin* 20 MG TAB PO SCH (21:56)
[2017-12-19] MEDS: oxyCODONE TAB* 5 MG TAB PO PRN ×3 (03:01→12:46)
[2017-12-19] MEDS: Heparin VIAL(*) 5000 UNITS/ML VIAL (FIVE THOUSAND) SUBCUT SCH ×2 (05:24→13:13)
[2017-12-19] MEDS: Levothyroxine TAB* 75 MCG TAB PO SCH (05:26)
[2017-12-19] MEDS: Losartan TAB* 25 MG PO SCH (07:56)
[2017-12-19] MEDS: Aspirin EC TAB* 81 MG TAB.EC PO SCH (07:56)
[2017-12-19] MEDS: Furosemide TAB* 40 MG PO SCH (07:56)
[2017-12-19] MEDS: metFORMIN* 1,000 MG TAB PO SCH (07:56)
[2017-12-19] MEDS: Diltiazem CD CAP* 240 MG PO SCH (07:56)
[2017-12-19] MEDS: Insulin LISPRO* 1 UNITS UNIT SUBCUT SCH ×2 (09:17→13:16)
[2017-12-19] MEDS: LORazepam TAB(*) 1 MG PO SCH ×2 (09:18→12:46)
[2017-12-19] MEDS: Docusate CAP* 100 MG PO PRN (09:18)
--- NOTE | 2017-12-19 12:53 | DS ---
CC: Dr. Cavanaugh * DISCHARGE SUMMARY: DATE OF ADMISSION: 12/14/17 DATE OF DISCHARGE: 12/19/17 PRIMARY CARE PROVIDER: Dr. Cavanaugh. PRINCIPAL DIAGNOSES: 1. Chest pain secondary to decompensated diastolic congestive heart failure. 2. Chronic right hip pain. 3. Uncontrolled type 2 diabetes with hemoglobin A1c elevated at 11.9%. SECONDARY DIAGNOSES: 1. Hypertension. 2. Hypothyroidism. 3. Morbid obesity with a BMI of 46. DISCHARGE MEDICATIONS: 1. Oxycodone 15 mg p.o. q.4 hours p.r.n. pain. 2. Metformin 1000 mg p.o. b.i.d. 3. Ambien 10 mg p.o. q.h.s. p.r.n. insomnia. 4. MiraLax 17 g p.o. daily p.r.n. constipation. 5. Multivitamin 1 tab p.o. daily. 6. Synthroid 75 mcg p.o. daily. 7. Ativan 1 mg p.o. 4 times daily p.r.n. anxiety. 8. Irbesartan 150 mg p.o. daily. 9. Lasix 40 mg p.o. daily. 10. Diltiazem CD 240 mg p.o. daily. 11. Flexeril 10 mg p.o. t.i.d. p.r.n. spasm. 12. Vitamin D 1000 units p.o. daily. 13. Lipitor 20 mg p.o. q.h.s. 14. Aspirin 81 mg p.o. daily. 15. Glipizide 2.5 mg p.o. b.i.d. (new). HOSPITAL COURSE: Ms. Barragan is a 62-year-old female who has a history of chronic pain, type 2 diabetes, hypertension, hyperlipidemia, and hypothyroidism who presented to the emergency room with complaints of chest pain, weight gain, and lower extremity edema. The patient was ultimately identified to have chest pain , likely secondary to decompensated diastolic congestive heart failure. The patient did undergo stress test, which revealed moderate region of probable stress-induced ischemia involving the apex and apical anterior and apical septal segments. Because of this concerning finding, the patient had a Cardiology consultation with Dr. Alex. It was his impression that there was no significant ischemia. It was felt to be unchanged from a stress test in September of 2016 and there was no evidence of reverse LV dilation. He did not feel that she needed any further workup for her chest pain. Of note, the patient had recently been discharged from long-term in [place], [place] back to [place]. While at the long-term, her diet was regulated, however once returning home I suspect it was not. Likely dietary indiscretions led to her decompensated heart failure. The patient was aggressively diuresed with IV Lasix. She has subsequently been transitioned back to her usual dose of Lasix. Her weight will need to be monitored. If her weights begin to increase or she has increase in lower extremity edema, the patient should have an additional dose of Lasix added in the afternoon either 20 or 40 mg. The biggest issue for the patient's mobility is chronic right hip pain. This has been ongoing for at least the last 4 years. The patient had previously seeing both Dr. Sanderson and Dr. Villatoro for evaluation. Both felt that they did not have a surgical option to offer to the patient at the time of their evaluations. The patient is wanting to get back in with Dr. Sanderson for a repeat evaluation. This referral should be made from [place] to Dr. Sanderson's office. The patient will continue with her usual doses of Flexeril and oxycodone. The patient did request more oxycodone; however, this had recently been tapered off while at the prior long-term. It was felt that she should not have any further narcotic increases and therefore, her dose of oxycodone was not increased. The patient has uncontrolled diabetes. Her hemoglobin A1c is elevated at 11.9% . This is on metformin 1000 mg twice daily. She was started on low-dose Lantus in the hospital with marginal improvement in her blood sugars, however before jumping to insulin I would like to add glipizide. We will start 2.5 mg twice daily. If this fails to improve her blood sugars reasonably, this can be increased. The patient will need routine ophthalmologic and podiatry care associated with her diabetes. The patient's hypertension has been under control. She will continue her usual dose of irbesartan. She also has good control of her TSH and she will continue on her usual dose of Synthroid. On the day of discharge, the patient is awake, alert, and oriented, lying in bed , in no acute distress. Her vital signs are stable with blood pressure of 127/ 48, pulse of 73, respirations 13, and temp of 98.2. She is not hypoxic on room air. Cardiac exam reveals a normal S1, S2 with a regular rate and rhythm. Her lungs are clear. Her abdomen is soft, morbidly obese, nontender, nondistended. There is no significant lower extremity edema. FOLLOWUP CONCERNS: The patient is being discharged to [facility] for subacute rehab. ACTIVITY LEVEL: As tolerated. DIET: Heart-healthy, diabetic. CONDITION ON DISCHARGE: Stable. TIME SPENT: Thirty five minutes was spent discharging this patient. [id number]/[facility] #: [id number] MTDD
[2017-12-19 16:21] VITALS: BP 134/57
== END 2017-12-19 15:50 | DRG 292 ==
LOC: ED 22:55 → OBSVTOIN 12-14 05:29 → MEDTELE 12-14 05:29 → MED 12-17 22:30
PROVIDERS: ADMIT Hospitalist; ATTEND Hospitalist
DX: I11.0 Hypertensive heart disease with heart failure (principal); Z68.42 Body mass index [BMI] 45.0-49.9, adult; I24.8 Other forms of acute ischemic heart disease; I50.31 Acute diastolic (congestive) heart failure; E11.65 Type 2 diabetes mellitus with hyperglycemia; M25.551 Pain in right hip; E03.9 Hypothyroidism, unspecified; E66.01 Morbid (severe) obesity due to excess calories; E78.5 Hyperlipidemia, unspecified; I25.10 Atherosclerotic heart disease of native coronary artery without angina pectoris; Z79.84 Long term (current) use of oral hypoglycemic drugs; Z79.1 Long term (current) use of non-steroidal anti-inflammatories (NSAID); Z79.82 Long term (current) use of aspirin; Z79.891 Long term (current) use of opiate analgesic; Z79.899 Other long term (current) drug therapy; Z88.6 Allergy status to analgesic agent; Z88.0 Allergy status to penicillin; Z88.2 Allergy status to sulfonamides; Z88.8 Allergy status to other drugs, medicaments and biological substances; Z82.49 Family history of ischemic heart disease and other diseases of the circulatory system; Z83.49 Family history of other endocrine, nutritional and metabolic diseases; G89.29 Other chronic pain; Z95.0 Presence of cardiac pacemaker; R07.9 Chest pain, unspecified; F44.4 Conversion disorder with motor symptom or deficit; Z96.659 Presence of unspecified artificial knee joint
CPT/HCPCS: 36415; 71045; 78452; 80048; 80053; 83036; 83735; 83880; 84443; 84484; 85025; 85610; 85730; 87641; 93005; 93017; 93306; 99284; A9270-GY; A9502; G8978-GP-CL; G8979-GP-CJ; G8987-GO-CK; G8988-GO-CI; G8989-GO-CI; J1644; J1940; J2270; J2785

== ENCOUNTER 2018-01-19 10:31 | Inpatient (IN) | payer MEDICARE, MEDICAID ==
--- NOTE | 2018-01-19 11:22 | ED ---
Complex/Multi-Sys Presentation - HPI Summary HPI Summary: The pt is a 62 y/o female presenting to [facility] c/o tremors and general body pain rated 7/10 in severity. She has been on anxiety and pain medications (Oxycodone, Ativan and Ambien) but ran out this weekend. She thinks she is experiencing withdrawal sx. She went to her [facility] 3 days ago and got a prescription but the pharmacy could not refill it claiming it was too soon. She notes insomnia, Left CP, scary nightmares, and fear of being alone but denies SI and HI. She is agreeable to going to rehab but not a longterm intermediate. - History Of Current Complaint Chief Complaint: EDGeneral Time Seen by Provider: 01/19/18 10:57 Hx Obtained From: Patient Onset/Duration: Gradual Onset, Lasting Days, Still Present, Worse Since - Today morning Timing: Constant Severity Initially: Moderate Aggravating Factor(s): Lack of her prescription medications. Associated Signs And Symptoms: Positive: Chest Pain, Other - notes insomnia, scary nightmares, and fear of being alone - Allergies/Home Medications Allergies/Adverse Reactions: Allergies Allergy/AdvReac Type Severity Reaction Status Date / Time cefazolin [From Ancef] Allergy Unknown Verified 12/14/17 00:42 Reaction Details citalopram [From Celexa] Allergy Insomnia Verified 12/14/17 00:42 naproxen Allergy Vomiting Verified 12/14/17 00:42 NSAIDS (Non-Steroidal Allergy GI Upset Verified 12/14/17 00:42 Anti-Inflamma Penicillins Allergy Rash Verified 12/14/17 00:42 propofol Allergy See Comment Verified 12/14/17 00:42 Sulfa (Sulfonamide Allergy Unknown Verified 12/14/17 00:42 Antibiotics) Reaction Details zaleplon [From Sonata] Allergy Insomnia Verified 12/14/17 00:42 Home Medications: Home Medications Metformin HCl 500 mg PO DAILY 01/19/18 [History Confirmed 01/19/18] Pantoprazole Sodium [Protonix] 40 mg PO DAILY 01/19/18 [History Confirmed ] PMH/Surg Hx/FS Hx/Imm Hx Previously Healthy: No Endocrine/Hematology History: Reports: Hx Blood Transfusions, Hx Diabetes Denies: Hx Anticoagulant Therapy, Hx Blood Disorders, Hx Bone Marrow Disease , Hx Systemic Lupus Erythematosus, Hx Sickle Cell Disease, Hx Thyroid Disease, Hx Anemia, Hx Unexplained Bleeding Cardiovascular History: Reports: Hx Angina, Hx Auto Implanted Cardiovert Defib, Hx Cardiomegaly - SINCE IN HER TEENS, Hx Congestive Heart Failure, Hx Deep Vein Thrombosis, Hx Hypertension, Hx Pacemaker/ICD, Other Cardiovascular Problems/ Disorders - Pericarditis Denies: Hx Coronary Artery Disease, Hx Hypercholesterolemia, Hx Myocardial Infarction, Hx Peripheral Vascular Disease, Hx Valvular Heart Disease Respiratory History: Reports: Other Respiratory Problems/Disorders - sob associated - inspiratory pain left ribs, abdominal distention per pt Denies: Hx Asthma, Hx Chronic Obstructive Pulmonary Disease (COPD) GI History: Reports: Hx Gastroesophageal Reflux Disease, Hx Irritable Bowel, Other GI Disorders - ABDOMEN DISTENDED Denies: Hx Cirrhosis, Hx Ulcer History: Denies: Hx Dialysis, Hx Renal Disease Musculoskeletal History: Reports: Hx Back Problems - back surgery x 3, Hx Orthopedic Injury, Other Musculoskeletal History - knee, hip surgery hx Denies: Hx Bursitis, Hx Congenital Bone Abnormalities, Hx Fibromyalgia, Hx Gout, Hx Osteoporosis, Hx Scoliosis, Hx Tendonitis Sensory History: Reports: Hx Contacts or Glasses Denies: Hx Cataracts, Hx Eye Injury, Hx Eye Prosthesis, Hx Glaucoma, Hx Macular Degeneration, Hx Vision Problem, Hx Deafness, Hx Hearing Aid, Hx Hearing Problem, Other Sensory Impairments Opthamlomology History: Reports: Hx Contacts or Glasses Denies: Hx Cataracts, Hx Eye Injury, Hx Eye Prosthesis, Hx Glaucoma, Hx Macular Degeneration, Hx Vision Problem, Other Sensory Impairments Neurological History: Denies: Hx Dementia, Hx Developmental Delay, Hx Headaches, Hx Migraine, Hx Seizures, Hx Spinal Cord Injury, Hx Transient Ischemic Attacks (TIA), Other Neuro Impairments/Disorders - LOC WITH FALLL Psychiatric History: Reports: Hx Anxiety Denies: Hx Attention Deficit Hyperactivity Disorder, Hx Eating Disorder, Hx Depression, Hx Panic Disorder, Hx Post Traumatic Stress Disorder, Hx Inpatient Treatment, Hx Schizophrenia, Hx Bipolar Disorder, Hx Suicide Attempt, Hx Substance Abuse, Other Psychiatric Issues/Disorders - Cancer History Cancer Type, Location and Year: skin cancer on right leg, removed Hx Chemotherapy: No Hx Radiation Therapy: No - Surgical History Surgery Procedure, Year, and Place: left shoulder surgery Jul 08 2013 csections x 3. partial hysterectomy. 3 back surgeries. right hip REPLACEMENT. LEFT KNEE RECONSTRUCTION. PACEMAKER [id number]. 3 C- SECTIONS. RIGHT SHOULDER ROTATOR CUFF REPAIR - 15 YEARS AGO. UMBILICAL HERNIA REPAIR Hx Anesthesia Reactions: Yes - PROPOFOL REACTION- THRASHING AND SCREAMING - Immunization History Date of Tetanus Vaccine: utd Date of Influenza Vaccine: utd Infectious Disease History: Yes Infectious Disease History: Reports: Hx Clostridium Difficile, Hx of Known/ Suspected MRSA Denies: Hx Hepatitis, Hx Human Immunodeficiency Virus (HIV), Hx Shingles, Hx Tuberculosis, Traveled Outside the [place] in Last 30 Days - Family History Known Family History: Positive: Cardiac Disease - CAD, Diabetes, Other - Breast CA - Social History Occupation: Disabled Lives: Alone Alcohol Use: None Hx Substance Use: No Substance Use Type: Reports: None Hx Tobacco Use: No Smoking Status (MU): Never Smoked Tobacco Have You Smoked in the Last Year: No Review of Systems Constitutional: Other - Positive: Insomnia, body aches Positive: Chest Pain Neurological: Other - Positive: tremors Psychological: Other - Denies SI and HI Negative: Other - Fear of being alone, nightmares All Other Systems Reviewed And Are Negative: Yes Physical Exam - Summary Physical Exam Summary: GENERAL: Patient is a well developed and nourished female. She is tremulous; Patient is not in any acute respiratory distress. HEAD AND FACE: Normocephalic EYES: PERRLA, EOMI x 2. EARS: Hearing grossly intact. MOUTH: Oropharynx within normal limits. NECK: Supple, trachea is midline, no adenopathy, no JVD, no carotid bruit. CHEST: Symmetric, no tenderness at palpation LUNGS: Clear to auscultation bilaterally. No wheezing or crackles. CVS: Regular rate and rhythm, S1 and S2 present, no murmurs or gallops appreciated. ABDOMEN: Soft, non-tender. Bowel sounds are normal. No abdominal abnormal pulsations. EXTREMITIES: Full ROM in all major joints, no edema, no cyanosis or clubbing. NEURO: Alert and oriented x 3. No acute neurological deficits. Speech is normal and follows commands. SKIN: Dry and warm PSYCH: Denies SI/HI Triage Information Reviewed: Yes Vital Signs On Initial Exam: Initial Vitals Temp Pulse Resp BP Pulse Ox 97.5 F 74 20 130/67 95 01/19/18 10:49 01/19/18 10:49 01/19/18 10:49 01/19/18 10:49 01/19/18 10:49 Vital Signs Reviewed: Yes Diagnostics - Vital Signs Vital Signs Temp Pulse Resp BP Pulse Ox 01/19/18 10:49 97.5 F 74 20 130/67 95 - Laboratory Result Diagrams: 01/19/18 11:38 01/19/18 11:38 Lab Statement: Any lab studies that have been ordered have been reviewed, and results considered in the medical decision making process. - Radiology CXR Radiology Interpretation Completed By: Radiologist - IMPRESSION: FINDINGS SUGGESTIVE OF MILD CONGESTIVE HEART FAILURE. The ED physician has reviewed this radiology report. - EKG 11:34 Cardiac Rate: NL - 62 bpm EKG Interpretation: LVH with ST T wave changes secondary to LVH; Prolonged QT interval EKG Comparison: No Significant Change - Similar to the one done on 12/13/2017 Complex Multi-Symp Course/Dx Course Of Treatment: A 62 year-old F presents to the ED with a CC of tremors and general body pain rated 7/10 in severity. She has been on anxiety and pain medications (oxycodone, Ativan and Ambien) but ran out this weekend. She thinks she is experiencing withdrawal sx. She notes insomnia, Left CP, scary nightmares , and fear of being alone but denies SI and HI. A physical exam reveals a tremulous state but is otherwise unremarkable. A CXR suggest mild CHF and an EKG reveals LVH, prolonged QT intervals and ST T wave changes secondary to LVH. In the ED course, pt was given ASA, Lorazepam , NTG and N.s 0.9% which improved the symptoms. I spoke with Dr. Manuel Colon about the care of the patient. A social media executive talked to the pt in the ED and secured a bed at [facility]. Dr. Colon agreed to admit the pt with a final Dx of CP until she tomorrow when she will be transferred to [facility]. I discussed results with patient. The patient agrees with this plan. Allergies noted. - Diagnoses Provider Diagnoses: Chest pain - Physician Notifications Discussed Care Of Patient With: Rossy Colon - Hospitalist Time Discussed With Above Provider: 12:18 Instructed by Provider To: Other - Dr. Colon recommends talking with a social media executive before considering admission. 12:23- The social media executive agreed to see the pt in the ED. 14:14- The social media executive saw the pt in the ED and found her a bed at [facility]. Will be admitted to [facility] and transferred to [facility] tomorrow. Discharge - Sign-Out/Discharge Documenting (check all that apply): Patient Departure - Discharge Plan Condition: Stable Disposition: ADMITTED TO [facility] - Billing Disposition and Condition Condition: STABLE Disposition: Admitted to [facility] - Attestation Statements Document Initiated by Amyibe: Yes Documenting Scribe: Sammie Bartlett Provider For Whom Katelyn is Documenting (Include Credential): Dr. Elaine Carlos MD Scribe Attestation: ISammie , scribed for Dr. Elaine Carlos MD on 01/19/18 at 1809. Scribe Documentation Reviewed: Yes Provider Attestation: The documentation as recorded by the scribeSammie accurately reflects the service I personally performed and the decisions made by me, Dr. Elaine Carlos MD
[2018-01-19] MEDS ORDERED: LORazepam INJ* 2 MG/ML 1 ML VIAL IV PUSH ONE (11:31)
[2018-01-19] MEDS ORDERED: NS 0.9% 500 ML* 500 ML IV ONE (11:31)
[2018-01-19] MEDS ORDERED: Aspirin 81 mg CHEW TAB* 81 MG TAB.CHEW PO ONE (11:52)
[2018-01-19] MEDS ORDERED: Nitroglycerin TAB 0.4 MG* 0.4 MG TAB SL ONE (11:52)
[2018-01-19 11:58] LABS: ABS Basophils 0 10^3/ul (0-0.2); ABS Eosinophils 0.1 10^3/ul (0-0.6); ABS Lymphocytes 2.4 10^3/ul (1.0-4.8); ABS Monocytes 0.6 10^3/ul (0-0.8); ABS Neutrophils 5.8 10^3/ul (1.5-7.7); ABS Nucleated RBC 0 10^3/ul; Eosinophil % 0.7 % (0-6); Hematocrit 39 % (35-47); Lymphocyte % 26.5 % (25-47); Mean Corpuscular HGB Conc 33 g/dl (31-36); Mean Corpuscular Hemoglobin 30 pg (27-31); Mean Corpuscular Volume 91 fL (80-97); Mean Platelet Volume 8.6 um3 (7.4-10.4); Nucleated Red Blood Cells % 0.2; Platelet Count 368 10^3/ul (150-450); Red Blood Count 4.29 10^6/ul (4.00-5.40); Red Cell Distribution Width 17 % (10.5-15); White Blood Count 8.9 10^3/ul (3.5-10.8)
--- NOTE | 2018-01-19 12:02 | RAD ---
INDICATION: Chest pain. COMPARISON: Comparison is made with a prior study from December 14, 2017. TECHNIQUE: A portable view of the chest was obtained. FINDINGS: The heart is mildly enlarged. There is a dual-chamber transvenous pacemaker present. There is mild diffuse prominence of the interstitial markings which appear similar to the prior exam. No focal infiltrate or pleural effusion is seen. IMPRESSION: FINDINGS SUGGESTIVE OF MILD CONGESTIVE HEART FAILURE.
[2018-01-19 12:10] LABS: EGFR Non-African American 64.7 (>60)
--- OUTSIDE RECORDS SUMMARY | 2018-01-19 12:57 | XMS REPORT ---
:1955 External Reference #:[id number] Author Organization [facility] Address [address] [place] [address] [place] [address] Phone [phone] Care Team Providers Name Role Phone Olga Cavanaugh MD Primary Care Physician Unavailable Payers Type Date Identification Numbers Payment Provider Subscriber Medicare Primary Effective: Policy Number: Medicare Miriam Barragan 1993 [id number] PayID: [id number] [address] [place] [address] Medigap Part B Policy Number: [id number] Medicaid Miriam Barragan PayID: [id number] [address] [place] [address] Problems Date Description Provider Status Onset: 03/14/2016 Essential hypertension Abelino Hdez DO [facility] Active Onset: 12/17/2017 Body mass index 40+ - severely Noemy Robertson D.O. Active obese Onset: 12/17/2017 Arthralgia of the pelvic region Noemy Robertson D.O. Active and thigh Onset: 12/16/2017 Hypothyroidism Deisy Summers M.D. Active Onset: 12/15/2017 Heart failure, unspecified Deisy Summers M.D. Active Onset: 12/14/2017 Type 2 diabetes mellitus Bebeto Barroso II, M.D. Active Onset: 12/14/2017 Hyperlipidemia Bebeto Barroso II, M.D. Active Onset: 12/14/2017 Chest pain Bebeto Barroso II, M.D. Active Family History Date Family Member(s) Problem(s) Comments General heart disease General diabetes General Kidney Disease Father due to Emphysema () Father due to [place] () - x2 age 50 yr,age 63 yrs Social History Type Date Description Comments Lives With Alone Occupation Retired ETOH Use Denies alcohol use Smoking Patient has never smoked Recreational Drug Use Denies Drug Use Daily Caffeine Does Not Consume Caffeine Exercise Type/Frequency Does not exercise Allergies, Adverse Reactions, Alerts Date Description Reaction Status Severity Comments 06/23/2006 PCN active rash , rapid HR 06/22/2013 Anaprox active 06/22/2013 Ancef active 06/22/2013 Lopressor active 06/22/2013 Morphine active 03/14/2016 Cipro active 03/14/2016 Sulfa Antibiotics active 03/14/2016 NSAIDs OTC active Medications Medication Date Status Form Strength Qnty SIG Indications Ordering Provider Lasix 03/12/ Active Tablets 40mg 1 by mouth Unknown 2015 in the morning Oxycodone HCL 10/27/ Active Tablets 10mg 60tab 1-2 tabs by Dirk 2014 s mouth every Mitzi, 6 hours as M.D. needed pain Ambien / Active Tablets 10mg 1 by mouth Unknown 0000 every night at bedtime as needed sleep insomnia Levothyroxine / Active Tablets 75mcg 1 by mouth Unknown Sodium 0000 every day Simvastatin / Active Tablets 40mg 1 by mouth Unknown 0000 every night at bedtime Ativan / Active Tablets 0.5mg as Unknown 0000 prescribed Oxycodone HCL / Active Tablet 15mg PO Unknown 0000 every 4 hours as needed for pain Lorazepam / Active Tablet 1 mg by Unknown 0000 mouth before meals and at bed time for anxiety Daily Multiple 00/00/ Active Tablets 1 daily Unknown Vitamins 0000 Metformin HCL / Active Tablets 1000mg 1 by mouth Unknown 0000 once a day in Am Metformin HCL / Active Tablets 500mg 1 by mouth Unknown 0000 in the PM Pantoprazole / Active Tablets 40mg 1 by mouth Unknown Sodium 0000 DR every day Vitamin D / Active Capsules 1000Unit 2 tabs by Unknown (Cholecalciferol) 0000 mouth every day to equal 2000 units Irbesartan / Active Tablets 150mg 1 by mouth Unknown 0000 twice daily Senna S / Active Tablets 8.6-50mg 2 tablets Unknown 0000 by mouth by mouth twice a day Benadryl Extra / Active Cream 2-0.1% apply to Unknown Strength 0000 affected areas 3-4 times daily as needed. Miralax / Active Powder 3350NF 17 gm every Unknown 0000 day mixed w/ 8 oz water/juice as needed Zofran / Active Tablets 4mg 1 tab by Unknown 0000 mouth every 6 hours as needed nausea Atorvastatin / Active Tablets 20mg take 1 Unknown Calcium 0000 tablet by mouth at bedtime Cyclobenzaprine / Active Tablets 5mg take 2 Unknown HCL 0000 tablets by mouth three times a day Azelastine HCL / Active Solution 0.1% Mao, (Nasal) 0000 Olga Schrader MD Montelukast / Active Tablets 10mg Mao, Sodium 0000 Olga Schrader MD MS Contin / Active Tablets 30mg 1 by mouth Unknown 0000 ER twice a day Percocet 02/19/ Hx Tablets 5-325mg 60tab One tab by Unknown 2013 mouth up to 02/23/ 4x daily as 2013 needed Oxycodone HCL 02/18/ Hx Tablets 10mg 120ta 1 by mouth Unknown 2013 - every 6 02/23/ hours as 2013 needed pain Percocet 09/10/ Hx Tablets 5-325mg 60tab 1-2 by Suresh 2013 mouth every Pepe, 09/08/ 4 to 6 M.D. 2014 hours as needed pain Olivet 06/22/ Hx Tablets 5-325mg 60tab 1-2 tab po Suresh 2013 - s q4h prn Pepe, 08/30/ pain M.DEamon 2013 Olivet 08/11/ Hx Tablets 5-325mg 40tab 1-2 po q4h Rex Harden 2011 - prn pain Liz, 06/22/ M.DEamon 2014 Levothyroxine 06/23/ Hx Tablets 100mcg 1 PO qd Qutaybeh 2006 S. 09/08/ Shahana Monreal M.D. Aspirin 06/23/ Hx Chewtabs 81mg 1 PO qd Qutaybeh 2006 - S. 06/22/ Shahana Hernandez M.D. Ambien 06/23/ Hx Tablets 10mg 30tab One QHS prn Qutaybeh 2006 - Sleep S. 10/07/ Shahana Hernandez M.D. Ibuprofen 06/23/ Hx Tablets 800mg 1 PO tid Gabrieltavineet 2006 - prn S. 06/22/ Shahana Hernandez M.D. Dilaudid 06/23/ Hx Tablets 2mg 4-6 qhrs Gabrieltavineet 2006 - prn S. 06/22/ Shahana Hernandez M.D. Pravastatin / Hx Unknown Sodium 0000 - 2014 Avapro / Hx 40mg as directed Unknown 0000 - 2015 Aspirin Low Dose / Hx Chewtabs 81mg 1 by mouth Unknown 0000 - every day 2015 Vital Signs Date Vital Result Comment 01/05/2018 Height 64 inches 5'4" Weight 250.00 lb BP Systolic 117 mmHg BP Diastolic 78 mmHg Respiratory Rate 15 /min Pain Level 7 BMI (Body Mass Index) 42.9 kg/m2 03/14/2016 Height 64 inches 5'4" Weight 270.00 lb yesterday 03/13/16 , No weight today Heart Rate 88 /min BP Systolic 110 mmHg Ra lg cuff BP Diastolic 70 mmHg Ra lg cuff BP Systolic Sitting 112 mmHg Ra lg cuff BP Diastolic Sitting 70 mmHg Ra lg cuff Respiratory Rate 18 /min BMI (Body Mass Index) 46.3 kg/m2 Ejection Fraction 55-60% date 07/07/15 ECHO 10/27/2014 Height 64 inches 5'4" Weight 173.00 lb Heart Rate 67 /min BP Systolic 160 mmHg BP Diastolic 80 mmHg BMI (Body Mass Index) 29.7 kg/m2 10/22/2013 Height 64 inches 5'4" Weight 163.00 lb Heart Rate 104 /min BMI (Body Mass Index) 28.0 kg/m2 10/08/2013 Height 64 inches 5'4" Weight 163.00 lb Heart Rate 72 /min BMI (Body Mass Index) 28.0 kg/m2 08/31/2013 Height 64 inches 5'4" Heart Rate 89 /min BP Systolic 153 mmHg BP Diastolic 82 mmHg 06/22/2013 Height 64 inches 5'4" Weight 263.00 lb Heart Rate 88 /min BP Systolic 154 mmHg BP Diastolic 92 mmHg BMI (Body Mass Index) 45.1 kg/m2 06/23/2006 Height 64 inches 5'4" Weight 203.00 lb Heart Rate 84 /min BP Systolic Sitting 138 mmHg BP Diastolic Sitting 88 mmHg BP Systolic Standing 130 mmHg BP Diastolic Standing 80 mmHg Respiratory Rate 16 /min BMI (Body Mass Index) 34.8 kg/m2 Results Test Date Test Result H/L Range Note Laboratory test finding 10/14/2013 C Reactive Protein 14.56 mg/L High < 5.00 1 CBC Auto Diff 10/14/2013 White Blood Count 7.2 10^3/uL 4.8-10.8 Red Blood Count 3.98 10^6/uL Low 4.0-5.4 Hemoglobin 12.0 g/dL 12.0-16.0 Hematocrit 36 % 35-47 Mean Corpuscular Volume 90 fL 80-97 Mean Corpuscular Hemoglobin 30 pg 27-31 Mean Corpuscular HGB Conc 33 g/dL 31-36 Red Cell Distribution Width 16 % High 10.5-15 Platelet Count 300 10^3/uL 150-450 Mean Platelet Volume 8 um3 7.4-10.4 Abs Neutrophils 4.5 10^3/uL 1.5-7.7 Abs Lymphocytes 2.0 10^3/uL 1.0-4.8 Abs Monocytes 0.6 10^3/uL 0-0.8 Abs Eosinophils 0.1 10^3/uL 0-0.6 Abs Basophils 0 10^3/uL 0-0.2 Abs Nucleated RBC 0.01 10^3/uL Granulocyte % 61.9 % 38-83 Lymphocyte % 28.3 % 25-47 Monocyte % 7.7 % 1-9 Eosinophil % 1.9 % 0-6 Basophil % 0.2 % 0-2 Nucleated Red Blood Cells % 0.1 Laboratory test finding 10/14/2013 Erythrocyte Sed Rate 60 mm/Hr High 0- 30 1 Acute inflammation: >10.00 Procedures Date CPT Code Description Status 12/15/2017 06627 ECHO Transthorasic Realtime 2D W Doppler & Color Flow Completed Hosp 12/15/2017 32691 Treadmill Interp/Report Only Completed 12/15/2017 16007 Stress Test Supervsn W/Out I/R Completed 04/24/2017 64951 ECHO Transthorasic Realtime 2D W Doppler & Color Flow Completed Hosp 04/24/2017 93332 Interrogation Device Eval In Person W/ Completed Analysis,Single,Dual,Mul 04/24/2017 56073 EKG, Interpretation Only Completed 04/23/2017 67982 Interrogation Device Eval In Person W/DR Completed Analysis,Single,Dual,Mul 02/18/2017 90339 EKG, Interpretation Only Completed 02/12/2017 58773 ECHO Transthorasic Realtime 2D W Doppler & Color Flow Completed Hosp 10/03/2016 01892 Stress Test Supervsn W/Out I/R Completed 10/03/2016 85702 Treadmill Interp/Report Only Completed 03/14/2016 59656 EKG Tracing & Interpretation Completed 07/07/2015 02678 ECHO Transthorasic Realtime 2D W Doppler & Color Flow Completed Hosp 09/30/2013 64766 Treadmill Interp/Report Only Completed 09/30/2013 61176 Stress Test Supervsn W/Out I/R Completed 07/07/2013 19273 Arthroscopy Shoulder,W/Rotator Cuff Repair Completed 07/07/2013 21754 Arthroscopy Shoulder,W/Rotator Cuff Repair Completed 03/12/2012 43048 EEG Recording Awake & Drowsy Completed 06/27/2006 83328 Stress Test Supervsn W/Out I/R Completed 06/27/2006 12599 Treadmill Interp/Report Only Completed 06/27/2006 51947 Stress ECHO Interpretation/Report Hospital Completed 06/27/2006 41754 Stress ECHO Interpretation/Report Hospital Completed 06/23/2006 42828 Color Doppler Completed 06/23/2006 11937 Color Doppler Completed 06/23/2006 85050 Pulse Doppler & Continuous Wave Completed 06/23/2006 06525 Echocardiogram Completed 06/23/2006 42367 Echocardiogram Completed 06/23/2006 37457 EKG Tracing & Interpretation Completed 07/11/2005 14253 Color Doppler Completed 07/11/2005 16755 Pulse Doppler & Continuous Wave Completed 07/11/2005 01125 Echocardiogram Completed 08/08/2004 17197 Selective Coronary Angiography Completed 08/08/2004 37423 S/I/R Inj Proc Vent &/Or Atrial Completed 08/08/2004 29690 Coronary Angiography Completed 08/08/2004 09127 Inj Proc LFT Vent/LFT Atrl Angio Completed 08/08/2004 44317 Left Heart Catheterization Completed Encounters Type Date Location Provider CPT E/M Dx Office Visit 12/19/2017 [facility] ,jasmin Robertson, 70881 R07.9 11:40a Hospitalists D.O. I50.30 M25.551 E11.65 Office Visit 12/18/2017 11:40a [facility] Noemy Pizanor, 16575 M25.551 Hospitalists D.O. E11.9 I50.9 I10 Office Visit 12/17/2017 11:40a [facility] Noemy Pizanor, 57300 I50.9 Hospitalists D.O. E11.9 M25.551 Z68.42 Office Visit 12/16/2017 11:39a [facility] Deisy Tolliverhn, 52493 I50.9 Hospitalists M.D. I10 E11.9 E03.9 Office Visit 12/16/2017 11:57a [facility] Bruce Alex, 60874 R07.9 [facility] M.DEamon Office Visit 12/15/2017 11:39a [facility] Deisy Summers, 69174 R07.9 Hospitalists M.D. I10 I50.9 E11.9 Office Visit 12/14/2017 11:38a [facility] [place] [address] R07.9 Assoc, Hospitalists M.D. I10 E78.5 E11.9 Office Visit 04/30/2017 9:18a [facility] [place], [address] R55 Hospitalists M.D. R07.9 I10 E11.8 Office Visit 04/29/2017 9:17a [facility] [place], [address] R55 Hospitalists M.DEamon R07.9 E11.8 I10 Office Visit 04/28/2017 9:40a [facility] Villatoro, 54425 M62.89 C.M.A. MJaya Office Visit 04/28/2017 9:16a [facility] [place], [address] R55 Hospitalists M.D. R07.9 I10 E11.8 Office Visit 04/27/2017 9:15a [facility] [place], [address]183 R55 Hospitalists M.DEamon R07.9 I10 E11.8 Office Visit 04/26/2017 9:14a [facility] [place], [address] R55 Hospitalists M.D. R07.9 I10 E11.8 Office Visit 04/25/2017 9:13a [facility] Robin Karenlla-Dulfer, 80499 R55 Assoc,pc PA Hospitalists R07.9 I10 E11.8 Office Visit 04/24/2017 9:12a [facility] Robin Karenlla-[place]ul[place], 51715 R55 Assoc,pc PA Hospitalists R07.9 I10 E11.8 Office Visit 04/24/2017 4:26p [facility] [place] [address] R55 FAC Z95.0 Office Visit 04/23/2017 9:11a [facility] Raymond Torres, 78124 R55 Hospitalists N.P. R07.9 I10 E11.8 Office Visit 02/21/2017 11:07a [facility] [address] R07.9 Hospitalists G89.29 F41.9 E11.9 Office Visit 02/20/2017 11:06a [facility] Kol[place]ored[place], 45287 R07.9 Hospitalists Rodrick G89.29 F41.9 E11.9 Office Visit 02/19/2017 11:06a [facility] MODESTO Sparks 83325 R07.9 Hospitalists G89.29 F41.9 E11.9 Office Visit 02/18/2017 11:05a [facility] Jie Mcdonald, N.P. 72391 R07.9 Hospitalists G89.29 E11.9 F41.9 Office Visit 02/17/2017 11:04a [facility] Robinignacia Joneslla-Dulfer, 10816 R07.9 Assoc,pc PA Hospitalists G89.29 E11.9 F41.9 Office Visit 02/14/2017 1:07p [facility] [address] R55 Hospitalists E11.8 G89.29 T79.6xxA Office Visit 02/13/2017 1:06p [facility] [address] R55 Hospitalists E11.8 G89.29 T79.6xxA Office Visit 02/12/2017 1:06p [facility], [place] [address] R55 Hospitalists E11.8 G89.29 T79.6xxA Office Visit 02/11/2017 1:05p [facility], Deisy Summers M.D. 91127 R55 Hospitalists E11.8 G89.29 T79.6xxA Office Visit 01/14/2017 1:00p [facility] Deisy Summers M.D. 58146 M25.562 G89.29 I10 E11.9 Office Visit 12/31/2016 1:52p [facility], Dusty Brooke, 91232 R07.1 Hospitalists Rodrick R60.0 R94.31 Office Visit 10/05/2016 3:32p [facility] Bruce Alex, 21759 R07.9 Mere Mensah Office Visit 10/03/2016 2:50p [facility], Deisy Summers, 22809 R07.1 Hospitalists Rodrick M25.512 Office Visit 03/14/2016 3:00p [facility] Abelino Hdez, 61725 Z01.810 It Recruiter DO [facility] I10 E11.9 E78.5 Z95.0 M17.12 Office Visit 07/07/2015 10:05a [facility], Christel SubramanianEamon Wilfrido, 32953 R41.0 Hospitalists N.PEamon R79.89 E03.9 I10 Office Visit 02/16/2015 12:55p [facility] [place], [address] 427.1 Assoc, Hospitalists Rodrick 427.31 428.0 Office Visit 02/03/2015 1:08p [facility], Suzy Bryant, BABAR [address]405 009.0 Hospitalists 787.91 558.9 Office Visit 10/27/2014 10:15a [facility] Joselin Lyn, 04156 719.41 C.M.A. RPA-C Office Visit 10/22/2013 1:45p [facility] Linda Sanderson M.D. 05558 V43.64 C.M.A. 719.45 Office Visit 10/08/2013 2:15p [facility] Lyn, 01483 V43.64 C.M.A. RPA-C 719.45 Office Visit 09/30/2013 2:27p [facility], Noemy Robertson, 16581 786.51 Hospitalists D.OEamon 789.01 787.01 564.1 Office Visit 09/29/2013 2:25p [facility], Jie Mcdonald N.P. 98445 786.51 Hospitalists 789.01 787.01 Office Visit 06/22/2013 8:00a [facility] Suresh Cantu M.D. 33930 840.4 C.M.A. Office Visit 03/18/2012 6:53p [facility], [place], [address] 780.2 Hospitalists MJaya 401.9 272.2 Office Visit 03/14/2012 6:52p [facility], [place], [address]257 780.2 Hospitalists Rodrikc 401.9 272.2 Office Visit 03/13/2012 1:46p [facility], Dick Grace M.D. 55046 780.2 Hospitalists 401.9 272.2 Office Visit 03/12/2012 6:50p [facility], Dick Grace M.D. 70329 780.2 Hospitalists 401.9 272.2 Office Visit 08/12/2011 10:45a [facility] Dylan Parkinson, 53643 724.2 Mere Mensah Office Visit 07/12/2011 11:30a [facility] Dylan Parkinson, 32682 847.2 Mere Mensah 847.1 719.45 Office Visit 06/23/2006 10:20a [facility] Serina Harkins, 75558 786.50 M.Jhoan 794.31 V72.81 Plan of Care 01/05/2018 - Linda Sanderson M.D.M25.551 Pain in right hipNew Therapy:Physical TherapyFollow up:Follow up: None tmhcykM37.641 Presence of right artificial hip joint
[2018-01-19] MEDS ORDERED: Zolpidem TAB* 10 MG PO PRN (17:35)
[2018-01-19] MEDS ORDERED: Polyethylene Glycol 3350* 17 GM PACKET PO PRN (17:35)
[2018-01-19] MEDS ORDERED: Cyclobenzaprine TAB* 10 MG PO PRN (17:35)
[2018-01-19] MEDS ORDERED: Dextrose 50% Syringe 50 ML* 25 GM/50 ML SYRINGE IV PUSH PRN (17:39)
[2018-01-19] MEDS: oxyCODONE TAB* 5 MG TAB PO PRN (20:00)
[2018-01-19] MEDS ORDERED: Atorvastatin* 20 MG TAB PO SCH (21:00)
--- NOTE | 2018-01-19 21:13 | HP ---
CC: Dr. Cavanaugh* HISTORY AND PHYSICAL: DATE OF ADMISSION: 01/19/18 TIME OF EVALUATION: 4:30 p.m. PRIMARY CARE PROVIDER: Dr. Cavanaugh. CHIEF COMPLAINT: "I ran out of my medications and I am anxious." HISTORY OF PRESENT ILLNESS: Ms. Barragan is a 62-year-old lady with a past medical history of type 2 diabetes, coronary artery disease, hypertension, hyperlipidemia, hypothyroidism, morbid obesity with a BMI of 42.9, who was just discharged from [facility] on 12/19/17 and she went to [facility] for rehab. She states she was discharged from [facility] on 01/09/18 and she has not been able to manage at home. She states that she has had lot of diffuse pain that she associates with her prior surgeries and extreme anxiety. She ran out of Ativan, oxycodone, and Ambien, although she was seen by her primary care provider 4 days ago. She states that she is having nightmares where she sees people that are trying to kill her. She denies hallucinations. No suicidal or homicidal ideation, but states that she has not been able to rest at home due to her fear. In the evening using an higher dose than prescribed of her medications, she obtains no relief. She presented to the emergency room, was evaluated, and she does not appear to have any acute issues at this time that would warrant admission. She was seen by social media director, who was able to arrange for the patient to be transferred to [facility] in the morning, but for now, she is going to be admitted as care home care. PAST MEDICAL HISTORY: 1. Type 2 diabetes. 2. Coronary artery disease. 3. Hypertension. 4. Hyperlipidemia. 5. Hypothyroidism. 6. Morbid obesity with a BMI of 42. PAST SURGICAL HISTORY: 1. Status post x3. 2. Status post lower spine surgery x4. 3. Status post pacer placement. 4. Status post left total knee arthropathy. 5. Status post right total hip arthropathy. 6. Status post tonsillectomy. MEDICATIONS: 1. Aspirin 81 mg p.o. daily. 2. Atorvastatin 20 mg p.o. at bedtime. 3. Cholecalciferol 1000 units p.o. daily. 4. Cyclobenzaprine 10 mg p.o. t.i.d. as needed for spasms. 5. Diltiazem CD 240 mg p.o. daily. 6. Furosemide 40 mg p.o. daily. 7. Irbesartan 150 mg p.o. daily. 8. Levothyroxine 75 mcg p.o. daily. 9. Lorazepam 1 mg p.o. 4 times a day as needed for anxiety. 10. Metformin 1500 mg p.o. daily. 11. Multivitamin 1 tablet p.o. daily. 12. Oxycodone 15 mg p.o. q.4 hours p.r.n. pain. 13. Lansoprazole 40 mg p.o. daily. 14. MiraLAX 17 g p.o. daily as needed for constipation. 15. Ambien 10 mg p.o. at bedtime as needed for insomnia. ALLERGIES: To multiple medications including CEFAZOLIN, CITALOPRAM, NAPROXEN, and other NSAIDS, PENICILLIN, PROPOFOL, SULFA, and SONATA. SOCIAL HISTORY: No history of tobacco, alcohol, or drug use. 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 Surrogate decision maker is her mother, Juhi Daugherty, and her sister, Blaine Daugherty. REVIEW OF SYSTEMS: A 14-point review of systems was performed, all the pertinent negatives and positive findings are in the HPI. PHYSICAL EXAMINATION GENERAL: The patient is a pleasant obese lady, sitting up in the ED stretcher, in no acute distress. VITAL SIGNS: Temperature 97.5, heart rate is 66, respiratory rate is 14, oxygen saturation is 92% on room air, blood pressure is 125/59. CHEST: Breath sounds bilaterally with no added sounds. CVS: Normal S1, S2. Regular rate and rhythm. NEURO: She is alert, oriented x3. Able to move all 4 extremities. DIAGNOSTIC STUDIES/LABORATORY DATA: The patient's CBC shows only RDW 17. Coags were normal and her chemistry showed a sodium of 133, potassium 3.9, BUN of 26, creatinine of 0.8, glucose of 219, lactic acid of 1.1, calcium of 9.6. Total bilirubin 0.7, AST of 113, ALT of 90, alk phos of 116. Troponin x2 was negative. Chest x-ray shows finding of mild congestive heart failure. EKG showed sinus rhythm at 62 beats per minute with T wave inversions in V4, 5, and 6. There is no significant change when compared to her prior EKG from November 2017. ASSESSMENT AND PLAN: Ms. Miriam Barragan is a 62-year-old lady with past medical history of type 2 diabetes, coronary artery disease, hypertension, hyperlipidemia, hypothyroidism, morbid obesity, who presented to the emergency room after being recently discharged from [facility] stating that she cannot manage at home by herself. The patient will be admitted for care home care and the plan is for her to be discharged to [facility] in the morning. The patient states she has been extremely anxious. She denies hallucinations, suicidal or homicidal ideations, but stated she had nightmares that people are trying to kill her and she has become more paranoid. I have requested a mental health evaluation, but this cannot be done prior to her discharge to [facility], I believe this could be pursued as outpatient. We are going to continue all her medications that she was doing as outpatient. For DVT prophylaxis, she will be on subcutaneous heparin. Code status is full. TIME SPENT: Approximately 40 minutes were spent with patient interview, medical records review, physical examination to complete the admission, more than half of this time was spent [id number] with the patient in coordination of care. [id number]/[facility] #: [id number] KARRI
[2018-01-19] MEDS: LORazepam TAB(*) 1 MG PO SCH (21:55)
[2018-01-19] MEDS: Insulin LISPRO* 1 UNITS UNIT SUBCUT SCH (21:57)
[2018-01-19] MEDS: Heparin VIAL(*) 5000 UNITS/ML VIAL (FIVE THOUSAND) SUBCUT SCH (22:22)
[2018-01-20] MEDS: oxyCODONE TAB* 5 MG TAB PO PRN ×4 (01:02→13:08)
[2018-01-20] MEDS: Heparin VIAL(*) 5000 UNITS/ML VIAL (FIVE THOUSAND) SUBCUT SCH ×2 (05:20→13:10)
[2018-01-20] MEDS ORDERED: Levothyroxine TAB* 75 MCG TAB PO SCH (06:00)
[2018-01-20] MEDS: LORazepam TAB(*) 1 MG PO SCH ×2 (07:29→13:08)
[2018-01-20 08:34] VITALS: BP 132/63
[2018-01-20] MEDS: Insulin LISPRO* 1 UNITS UNIT SUBCUT SCH ×2 (08:36→13:09)
[2018-01-20] MEDS ORDERED: metFORMIN* 500 MG TAB PO SCH (09:00)
[2018-01-20] MEDS ORDERED: Multivitamins/Minerals TAB PO SCH (09:00)
[2018-01-20] MEDS ORDERED: Aspirin EC TAB* 81 MG TAB.EC PO SCH (09:00)
[2018-01-20] MEDS ORDERED: Diltiazem CD CAP* 240 MG PO SCH (09:00)
[2018-01-20] MEDS ORDERED: Cholecalciferol TAB* 1000 UNITS PO SCH (09:00)
[2018-01-20] MEDS ORDERED: metFORMIN* 1,000 MG TAB PO SCH (09:00)
[2018-01-20] MEDS ORDERED: Furosemide TAB* 40 MG PO SCH (09:00)
[2018-01-20] MEDS ORDERED: Losartan TAB* 25 MG PO SCH (09:00)
--- NOTE | 2018-01-20 13:06 | DS ---
CC: Dr. Cavanaugh * DATE OF ADMISSION: 01/19/2018. DATE OF DISCHARGE: 01/20/2018. PROVIDER: Rosa M Jorgensen NP. ATTENDING PHYSICIAN: Dr. Nina *(report dictated by Rosa M Jorgensen NP). PRIMARY CARE PHYSICIAN: Dr. Cavanaugh. PHYSICIAN AT [facility]: Dr. Noemy Robertson. DISCHARGED TO: [facility]. DISCHARGE DIAGNOSIS: Admitted for longterm care. Unable to care for herself at home. SECONDARY DIAGNOSES: 1. Anxiety. 2. Noninsulin dependent type 2 diabetes. 3. Coronary artery disease. 4. Hypertension. 5. Hyperlipidemia. 6. Hypothyroidism. 7. Morbid obesity with a BMI of 42.9. DISCHARGE MEDICATIONS: 1. Protonix 40 mg p.o. daily. 2. Oxycodone 15 mg p.o. q.4 hours prn. 3. Metformin 1,000 mg p.o. daily. 4. Ambien 10 mg p.o. at bedtime prn. 5. MiraLax 17 gm p.o. daily prn. 6. Multivitamin with mineral one tab p.o. daily. 7. Metformin 500 mg p.o. daily. 8. Synthroid 75 mcg p.o. daily. 9. Ativan 1 mg p.o. q.i.d. 10. Irbesartan 150 mg p.o. daily. 11. Lasix 40 mg p.o. daily. 12. Cardizem CD 240 mg p.o. daily. 13. Flexeril 10 mg p.o. t.i.d. prn. 14. Vitamin D3 1,000 units p.o. daily. 15. Lipitor 20 mg p.o. at bedtime. 16. Aspirin 81 mg p.o. daily. HISTORY OF PRESENT ILLNESS AND HOSPITAL COURSE: Please see history and physical by Dr. Collier for full admission details. But in summary, this is a 62 -year-old female with a past medical history as stated above who presented to the emergency department yesterday on 01/19/2018 reporting "I ran out of my medications and I'm anxious," reporting she cannot care for herself at home. The patient reported that she ran out of her Ativan, Oxycodone and Ambien, although she does report that she was seen by her primary care provider four days ago. She states that she was having nightmare where she sees people that are trying to kill her, but denies hallucinations. She denies suicidal and homicidal ideation and reported she is unable to get rest at home due to her fear. She did not meet for inpatient criteria for acute issues which would warrant admission and she was seen by the social psychologist who arranged for her to be transferred to [facility] today. She was admitted to the Hospitalists service as longterm care. Today on evaluation, the patient was found lying in bed, alert and oriented times three, in no acute distress. She reports she "feels much better" and states that she was having such high anxiety at home due to living alone and reports that it caused a lot of stress to be home alone. She was recently discharged from [facility] on 01/09/2018 and reports she has not been able to manage at home. She was sent to [facility] for rehab for decreased mobility of chronic right hip pain. She was hospitalized in November for decompensating diastolic congestive heart failure and was unable to go home due to this chronic right hip pain. Today, the patient reports that the right hip pain has much improved. However, she states that she returned to home and she feels that she is unable to care for herself. The patient denies any shortness of breath or chest pain. No recent fevers or chills. REVIEW OF SYSTEMS: The patient currently reports that her anxiety is much better controlled. She denies any other symptoms at this time. A 14 point review of systems was performed. All the pertinent positives and negatives were mentioned in the history of present illness. PHYSICAL EXAMINATION: General appearance: Obese, 62-year-old female, lying in bed, alert and oriented times three in no acute distress, appropriate. Vital Signs: Temperature 98.5, heart rate 67, respirations 18, O2 sat 97 percent on room air, blood pressure 132/63. HEENT: Normocephalic, atraumatic. Pupils are equal. Oropharynx is clear. Moist mucus membranes. Cardiac: S1, S2, regular rate and rhythm with no murmur, rub or gallop appreciated. No lower extremity edema noted. Lungs: Clear to auscultation bilaterally. Good aeration throughout. Abdomen: Obese, soft, nontender, nondistended, normal bowel sounds throughout. Extremities: Moves all extremities. Strength is 5/5 throughout. Neuro: Alert and oriented times three. No focal deficits noted. DISCHARGE PLAN: Patient will be transferred to [facility] to the rehab unit for continued rehab as well as she will need social work involvement. The question is will the patient be best served in an assisted living environment which is most likely the case. TIME SPENT: Approximately 60 minutes were spent on this discharge summary. Please note, this discharge summary can be used as a history and physical at [facility]. ROSA M JORGENSEN, BABAR [id number]/CPS #: [id number] KARRI
== END 2018-01-20 14:15 | DRG 880 ==
LOC: ED 10:31 → MED 16:27
PROVIDERS: ADMIT Internal Medicine; ATTEND Internal Medicine
DX: F41.9 Anxiety disorder, unspecified (principal); Z68.41 Body mass index [BMI] 40.0-44.9, adult; Z74.2 Need for assistance at home and no other household member able to render care; I13.10 Hypertensive heart and chronic kidney disease without heart failure, with stage 1 through stage 4 chronic kidney disease, or unspecified chronic kidney disease; E11.22 Type 2 diabetes mellitus with diabetic chronic kidney disease; N18.9 Chronic kidney disease, unspecified; I25.10 Atherosclerotic heart disease of native coronary artery without angina pectoris; E78.5 Hyperlipidemia, unspecified; E03.9 Hypothyroidism, unspecified; E66.01 Morbid (severe) obesity due to excess calories; Z79.84 Long term (current) use of oral hypoglycemic drugs; Z79.82 Long term (current) use of aspirin; Z79.891 Long term (current) use of opiate analgesic; Z79.899 Other long term (current) drug therapy; Z88.0 Allergy status to penicillin; Z88.2 Allergy status to sulfonamides; Z88.8 Allergy status to other drugs, medicaments and biological substances
CPT/HCPCS: 36415; 71045; 80053; 83605; 83880; 84484; 85025; 85610; 85730; 93005; 99284; A9270-GY; J1644; J2060

== ENCOUNTER 2018-02-27 17:34 | Inpatient (IN) | payer MEDICARE, MEDICAID ==
[2018-02-27] MEDS ORDERED: Morphine INJ* 4 MG/ML 1 ML SYRINGE (NEW SYRINGE VERSION) IV ONE ×2 (18:10→21:35)
[2018-02-27] MEDS ORDERED: NS 0.9% 1000 ML* 1,000 ML IV ONE (18:10)
--- NOTE | 2018-02-27 18:11 | ED ---
Adult Trauma - HPI Summary HPI Summary: Pt. is a 63 y.o female who presents to the ER for evaluation after falling down steps just prior to arrival. Pt. states she was walking down steps at her house with her walker when her walker broke and she fell down roughly 4 steps. Pt. states she injured her right side. Pt. states she hit the right side of her head but did not lose consciousness. Patient complains of headache, neck pain, bilateral shoulder pain, right hip pain and right-sided abdominal pain. She is not anticoagulated. Symptoms are moderate in severity. Movement makes symptoms worse. Nothing makes symptoms better. - History of Current Complaint Chief Complaint: EDExtremityLower Stated Complaint: FALL Time Seen by Provider: 02/27/18 17:54 Hx Obtained From: Patient Pain Intensity: 7 - Additional Pertinent History Primary Care Physician: ATUL - Allergy/Home Medications Allergies/Adverse Reactions: Allergies Allergy/AdvReac Type Severity Reaction Status Date / Time cefazolin [From Ancef] Allergy Unknown Verified 12/14/17 00:42 Reaction Details citalopram [From Celexa] Allergy Insomnia Verified 12/14/17 00:42 naproxen Allergy Vomiting Verified 12/14/17 00:42 NSAIDS (Non-Steroidal Allergy GI Upset Verified 12/14/17 00:42 Anti-Inflamma Penicillins Allergy Rash Verified 12/14/17 00:42 propofol Allergy See Comment Verified 12/14/17 00:42 Sulfa (Sulfonamide Allergy Unknown Verified 12/14/17 00:42 Antibiotics) Reaction Details zaleplon [From Sonata] Allergy Insomnia Verified 12/14/17 00:42 PMH/Surg Hx/FS Hx/Imm Hx Previously Healthy: Yes Endocrine/Hematology History: Reports: Hx Blood Transfusions, Hx Diabetes Denies: Hx Anticoagulant Therapy, Hx Blood Disorders, Hx Bone Marrow Disease , Hx Systemic Lupus Erythematosus, Hx Sickle Cell Disease, Hx Thyroid Disease, Hx Anemia, Hx Unexplained Bleeding Cardiovascular History: Reports: Hx Angina, Hx Auto Implanted Cardiovert Defib, Hx Cardiomegaly - SINCE IN HER TEENS, Hx Congestive Heart Failure, Hx Deep Vein Thrombosis, Hx Hypertension, Hx Pacemaker/ICD, Other Cardiovascular Problems/ Disorders - Pericarditis Denies: Hx Coronary Artery Disease, Hx Hypercholesterolemia, Hx Myocardial Infarction, Hx Peripheral Vascular Disease, Hx Valvular Heart Disease Respiratory History: Reports: Other Respiratory Problems/Disorders - sob associated - inspiratory pain left ribs, abdominal distention per pt Denies: Hx Asthma, Hx Chronic Obstructive Pulmonary Disease (COPD) GI History: Reports: Hx Gastroesophageal Reflux Disease, Hx Irritable Bowel, Other GI Disorders - ABDOMEN DISTENDED Denies: Hx Cirrhosis, Hx Ulcer History: Denies: Hx Dialysis, Hx Renal Disease Musculoskeletal History: Reports: Hx Back Problems - back surgery x 3, Hx Orthopedic Injury, Other Musculoskeletal History - knee, hip surgery hx Denies: Hx Bursitis, Hx Congenital Bone Abnormalities, Hx Fibromyalgia, Hx Gout, Hx Osteoporosis, Hx Scoliosis, Hx Tendonitis Sensory History: Reports: Hx Contacts or Glasses Denies: Hx Cataracts, Hx Eye Injury, Hx Eye Prosthesis, Hx Glaucoma, Hx Macular Degeneration, Hx Vision Problem, Hx Deafness, Hx Hearing Aid, Hx Hearing Problem, Other Sensory Impairments Opthamlomology History: Reports: Hx Contacts or Glasses Denies: Hx Cataracts, Hx Eye Injury, Hx Eye Prosthesis, Hx Glaucoma, Hx Macular Degeneration, Hx Vision Problem, Other Sensory Impairments Neurological History: Denies: Hx Dementia, Hx Developmental Delay, Hx Headaches, Hx Migraine, Hx Seizures, Hx Spinal Cord Injury, Hx Transient Ischemic Attacks (TIA), Other Neuro Impairments/Disorders - LOC WITH FALLL Psychiatric History: Reports: Hx Anxiety Denies: Hx Attention Deficit Hyperactivity Disorder, Hx Eating Disorder, Hx Depression, Hx Panic Disorder, Hx Post Traumatic Stress Disorder, Hx Inpatient Treatment, Hx Schizophrenia, Hx Bipolar Disorder, Hx Suicide Attempt, Hx Substance Abuse, Other Psychiatric Issues/Disorders - Cancer History Cancer Type, Location and Year: skin cancer on right leg, removed Hx Chemotherapy: No Hx Radiation Therapy: No - Surgical History Surgery Procedure, Year, and Place: left shoulder surgery Jul 08 2013 csections x 3. partial hysterectomy. 3 back surgeries. right hip REPLACEMENT. LEFT KNEE RECONSTRUCTION. PACEMAKER [id number]. 3 C- SECTIONS. RIGHT SHOULDER ROTATOR CUFF REPAIR - 15 YEARS AGO. UMBILICAL HERNIA REPAIR Hx Anesthesia Reactions: Yes - PROPOFOL REACTION- THRASHING AND SCREAMING - Immunization History Date of Tetanus Vaccine: utd Date of Influenza Vaccine: utd Infectious Disease History: No Infectious Disease History: Reports: Hx Clostridium Difficile, Hx of Known/ Suspected MRSA Denies: Hx Hepatitis, Hx Human Immunodeficiency Virus (HIV), Hx Shingles, Hx Tuberculosis, Traveled Outside the [place] in Last 30 Days - Family History Known Family History: Positive: Cardiac Disease - CAD, Diabetes, Other - Breast CA - Social History Occupation: Retired Lives: Alone Alcohol Use: None Hx Substance Use: No Substance Use Type: Reports: None Hx Tobacco Use: No Smoking Status (MU): Never Smoked Tobacco Have You Smoked in the Last Year: No Review of Systems Eyes: Negative Cardiovascular: Negative Negative: Palpitations, Chest Pain Respiratory: Negative Negative: Shortness Of Breath, Cough Positive: Abdominal Pain. Negative: Vomiting, Nausea Positive: Other - right hip, bilateral shoulder, right foot pain Positive: Headache. Negative: Weakness, Paresthesia, Numbness, Syncope All Other Systems Reviewed And Are Negative: Yes Physical Exam Triage Information Reviewed: Yes Vital Signs On Initial Exam: Initial Vitals Temp Pulse Resp BP Pulse Ox 97.8 F 66 15 168/80 93 02/27/18 17:43 02/27/18 17:43 02/27/18 17:43 02/27/18 17:43 02/27/18 17:43 Vital Signs Reviewed: Yes Appearance: Positive: Pain Distress - Pt. lying in bed, appears uncomfortable but nontoxic. Skin: Positive: Warm, Dry Head/Face: Positive: Normal Head/Face Inspection Eyes: Positive: Normal, EOMI Neck: Positive: Other: - Midline tenderness. Collar placed Respiratory/Lung Sounds: Positive: Clear to Auscultation, Breath Sounds Present Cardiovascular: Positive: Normal, RRR Abdomen Description: Positive: Other: - Obese. Abd. is soft with significant tenderness to right mid to upper quadrants. Musculoskeletal: Positive: Other - Diffuse pain to bilateral shoulders. Pain to right hip and right foot. All 4 extremities are neurovascularly intact. No obvious deformity. Neurological: Positive: Normal, Alert, Oriented to Person Place, Time, CN Intact II-III Psychiatric: Positive: Affect/Mood Appropriate - [place]itt Coma Scale Best Eye Response: 4 - Spontaneous Best Motor Response: 6 - Obeys Commands Best Verbal Response: 5 - Oriented Coma Scale Total: 15 Diagnostics - Vital Signs Vital Signs Temp Pulse Resp BP Pulse Ox 02/27/18 17:43 97.8 F 66 15 168/80 93 - Laboratory Result Diagrams: 02/27/18 19:08 02/27/18 20:14 Lab Statement: Any lab studies that have been ordered have been reviewed, and results considered in the medical decision making process. Adult Trauma Course/Dx - Course Course Of Treatment: Patient presenting with numerous injuries after falling down steps after her walker broke. Her main complaint is right hip pain. She also complains of head, neck and abdominal pain. C-collar was placed. Basic labs were ordered as well as IV morphine for pain.. CT scans of head, neck, abdomen and pelvis are negative for acute medical injuries, reading per radiology. Plain films of shoulder, chest and right foot were reviewed by myself and Dr. Monte and are negative for acute findings.. Results were discussed with patient. She still complaining of right hip pain. Patient states she lives by herself in does not feel she'll be able to return to home by herself given her pain. We were able to get patient a walker and she attempted to ambulate a few feet and complained of severe pain. Pt. does have rx oxycodone at home. Patient states she is worried about going home and falling. Patient states she is not any family in the area or anyone that can stay with her.. Patient is requesting be admitted for pain control. Explained to patient there is no medical reason to admit her to the hospital [facility]. I did speak with hospitalist, Dr. Butler, who agrees. Pt. requesting prison admission and understands she will most likely be paying for admission. Admitted under Dr. Butler's service. - Diagnoses Provider Diagnoses: Fall, Intractable pain Discharge - Sign-Out/Discharge Documenting (check all that apply): Patient Departure - Discharge Plan Condition: Good Disposition: ADMITTED TO [facility] Referrals: Olga Cavanaugh MD [Primary Care Provider] - - Billing Disposition and Condition Condition: GOOD Disposition: Admitted to [facility]
[2018-02-27] MEDS ORDERED: Ondansetron INJ* 2 MG/ML VIAL IV ONE (18:45)
[2018-02-27] MEDS ORDERED: Ondansetron INJ* 2 MG/ML VIAL ONE (18:46)
[2018-02-27 19:22] LABS: ABS Basophils 0 10^3/ul (0-0.2); ABS Eosinophils 0 10^3/ul (0-0.6); ABS Lymphocytes 1.5 10^3/ul (1.0-4.8); ABS Monocytes 0.5 10^3/ul (0-0.8); ABS Neutrophils 3.8 10^3/ul (1.5-7.7); ABS Nucleated RBC 0 10^3/ul; Eosinophil % 0.4 % (0-6); Hematocrit 38 % (35-47); Hemoglobin 12.7 g/dl (12.0-16.0); Lymphocyte % 25.4 % (25-47); Mean Corpuscular HGB Conc 33 g/dl (31-36); Mean Corpuscular Hemoglobin 31 pg (27-31); Mean Corpuscular Volume 92 fL (80-97); Mean Platelet Volume 8.5 um3 (7.4-10.4); Nucleated Red Blood Cells % 0; Platelet Count 306 10^3/ul (150-450); Red Blood Count 4.12 10^6/ul (4.00-5.40); Red Cell Distribution Width 17 % (10.5-15); White Blood Count 5.9 10^3/ul (3.5-10.8)
[2018-02-27 19:26] LABS: INR 1.53 (0.77-1.02)
[2018-02-27 19:43] LABS: EGFR Non-African American 118.3 (>60)
[2018-02-27] MEDS ORDERED: Iodixanol* (CONTRAST) 320 MG/ML 100 ML SDV IV ONE (19:55)
--- NOTE | 2018-02-27 21:43 | RAD ---
EXAM: CT Abdomen and Pelvis With Intravenous Contrast CLINICAL HISTORY: 63 years old, female; Pain; Abdominal pain; Generalized; Additional info: Fall TECHNIQUE: Axial computed tomography images of the abdomen and pelvis with intravenous contrast. All CT scans at this facility use at least one of these dose optimization techniques: automated exposure control; mA and/or kV adjustment per patient size (includes targeted exams where dose is matched to clinical indication); or iterative reconstruction. Coronal and sagittal reformatted images were created and reviewed. CONTRAST: 141 mL of [id number] administered intravenously. COMPARISON: A/P WO CT ABD/PEL W/O 04/23/2017 5:43 PM FINDINGS: Lung bases: The visualized portions of the lung bases are normal. ABDOMEN: Liver: Transhepatic attenuation difference along the gallbladder fossa. Findings consistent with a Deven's lobe. No hepatic laceration or perihepatic hematomas. Gallbladder and bile ducts: Normal. No radiopaque calculi. No ductal dilation. Pancreas: Normal. No mass. No ductal dilation. Spleen: No splenic laceration or perisplenic hematomas. Adrenals: Normal. No mass. Kidneys and ureters: No renal laceration or perirenal hematomas. No calyceal or pelvic rupture. Stomach and bowel: Incompletely distended grossly normal stomach. Normal caliber small bowel. No colonic masses or segmental wall thickening. PELVIS: Appendix: Nonvisualized appendix with no secondary findings to suggest appendicitis. Bladder: Thin-walled bladder with no focal nodularity, perivesicular stranding, or calcifications. Reproductive: Uterus and ovaries are surgically absent. ABDOMEN and PELVIS: Intraperitoneal space: Normal. No pneumoperitoneum. No ascities. Bones/joints: The spine demonstrates severe degenerative changes at multiple levels. Posterior fusion and instrumentation from T11-S1 with grade 2 anterolisthesis of L5 on S1. Multilevel laminectomies also seen. Total right hip arthroplasty in normal anatomic alignment. No fractures. No suspicious bone lesions. Soft tissues: Normal. No hernias. Vasculature: The aorta demonstrates mild atherosclerotic calcification. Patent IVC. No abdominal aortic aneurysm. Lymph nodes: Normal. No enlarged lymph nodes. Tubes, lines and devices: Right atrioventricular pacemaker leads partially visualized. IMPRESSION: 1. No abdominal or pelvic traumatic abnormalities. 2. Additional incidental findings as described. To contact [facility] with a general question: [facility] - [phone] For direct physician to physician contact: Physician Hotline - [phone] [facility] (ad Facility ID #[id number])
--- NOTE | 2018-02-27 21:52 | RAD ---
EXAM: CT Cervical Spine Without Intravenous Contrast CLINICAL HISTORY: 63 years old, female; Pain; Other: S/P fall TECHNIQUE: Axial computed tomography images of the cervical spine without intravenous contrast. All CT scans at this facility use at least one of these dose optimization techniques: automated exposure control; mA and/or kV adjustment per patient size (includes targeted exams where dose is matched to clinical indication); or iterative reconstruction. Coronal and sagittal reformatted images were created and reviewed. COMPARISON: SP Nya WO CT SPINE CERVICAL W/O 04/09/2017 2:51 AM FINDINGS: Vertebrae: Straightened cervical lordosis without spondylolisthesis.The craniocervical junction and atlantoaxial articulation are symmetric and normal. No fractures. Vertebral body heights are maintained. Discs/spinal canal/neural foramina: C2-C3: Symmetric disc bulge causing no canal stenosis. Right facet hypertrophy. No neural foraminal narrowing. C3-C4: Disc height loss with symmetric endplate osteophyte disc bulge complex causing no canal stenosis. Uncovertebral and facet hypertrophy causing mild left and no right neural foraminal narrowing. C4-C5: Disc height loss with symmetric endplate osteophyte disc bulge complex causing no canal stenosis. Uncovertebral and facet hypertrophy causing mild right and no left neural foraminal narrowing. C5-C6: Disc height loss with symmetric endplate osteophyte disc bulge complex causing no canal stenosis. Right uncovertebral and facet hypertrophy causing moderate right neural foraminal narrowing. Normal left facet and no neural foraminal narrowing. C6-C7: Disc height loss with endplate osteophyte disc bulge complex causing no canal stenosis. Right uncovertebral and facet hypertrophy causing mild right neuroforaminal narrowing. Normal left facet and neural foramen. Soft tissues: Normal. Lung apices: Normal as visualized. IMPRESSION: 1. No cervical spine traumatic abnormalities. 2. Mild multilevel cervical spondylopathy. To contact [facility] with a general question: [facility] - [phone] For direct physician to physician contact: Physician Hotline - [phone] [facility] ([facility] Facility ID #[id number])
--- NOTE | 2018-02-27 21:59 | RAD ---
EXAM: CT Head Without Intravenous Contrast CLINICAL HISTORY: 63 years old, female; Injury or trauma; Injury S/P fall TECHNIQUE: Axial computed tomography images of the head/brain without intravenous contrast. All CT scans at this facility use at least one of these dose optimization techniques: automated exposure control; mA and/or kV adjustment per patient size (includes targeted exams where dose is matched to clinical indication); or iterative reconstruction. COMPARISON: No relevant prior studies available. FINDINGS: Brain: Mild periventricular and subcortical low attenuation without adjacent mass effect. No acute ischemic changes, extra axial fluid collections, intraparenchymal hemorrhage, or midline shift. Ventricles: Normal. No ventriculomegaly. Symmetrical in position. Bones/joints: No acute fracture. No suspicious osseous lesions. Soft tissues: Normal. Vasculature: The vasculature demonstrates diffuse moderate atherosclerotic calcification. Sinuses: Nearly opacified left sphenoid sinus with posterior left ethmoid air cell which is expanded by a high attenuating focus. Remaining paranasal sinuses are clear. Mastoid air cells: Normal as visualized. No mastoid effusion. IMPRESSION: 1. No traumatic intracranial abnormalities. 2. Mild chronic small vessel ischemic disease. 3. Left ethmoid mucocele. To contact [facility] with a general question: [facility] - [phone] For direct physician to physician contact: Physician Hotline - [phone] [facility] ([facility] Facility ID #[id number])
[2018-02-28] MEDS: oxyCODONE TAB* 5 MG TAB PO PRN ×5 (02:45→22:05)
[2018-02-28] MEDS: Zolpidem TAB* 10 MG PO PRN ×2 (02:45→22:05)
[2018-02-28] MEDS: LORazepam TAB(*) 1 MG PO SCH ×5 (04:08→20:35)
[2018-02-28] MEDS ORDERED: Enoxaparin(*) 40 MG/0.4 ML SYR SUBCUT SCH (07:00)
--- NOTE | 2018-02-28 07:33 | RAD ---
Indication: RIGHT foot pain post fall. Comparison: No relevant prior exams available on the [facility] PACS for comparison. Technique: AP, lateral, and oblique views RIGHT foot. Report: Normal articular alignment. Negative for fracture. Mild first metatarsal phalangeal joint osteoarthritis. Unremarkable soft tissue contours. IMPRESSION: #. Negative for fracture. R1
--- NOTE | 2018-02-28 07:36 | RAD ---
Indication: Fall. History of congestive heart failure. Comparison: February 27, 2018 CT abdomen. January 19, 2018 chest radiograph Technique: Upright AP 1835 hours Report: Mild prominence of the interstitial markings. The lungs and pleural spaces are otherwise clear. Cardiomegaly and RIGHT atrial and RIGHT ventricular level pacemaker leads. Unremarkable central pulmonary vasculature. Thoracic lumbar spinal fixation hardware partially included in the [id number]. No conspicuous thoracic fractures. Arthropathy noted at the shoulders. IMPRESSION: #. Cardiomegaly without compelling evidence for pulmonary edema. #. No traumatic thoracic injury evident. R1
--- NOTE | 2018-02-28 08:23 | RAD ---
Indication: Shoulder pain post fall. Comparison: January 19, 2018 chest radiograph. Technique: Bilateral shoulder AP, Grashey, scapular Y, and valpeaux views. Report: RIGHT shoulder: Negative for fracture or dislocation. Surgical anchors at the humeral head. Moderately severe glenohumeral joint osteoarthritis. Negative for calcific tendinopathy. Unremarkable soft tissue contours. LEFT shoulder: Negative for fracture or dislocation. Severe glenohumeral joint and mild acromioclavicular joint osteoarthritis. Moderate inferior acromial bone spur. Negative for calcific tendinopathy. Unremarkable soft tissue contours. IMPRESSION: #. Negative for RIGHT or LEFT shoulder fracture or dislocation. #. Osteoarthritis. R1
[2018-02-28] MEDS ORDERED: Dextrose 50% Syringe 50 ML* 25 GM/50 ML SYRINGE IV PUSH PRN (08:47)
[2018-02-28] MEDS: Losartan TAB* 25 MG PO SCH (08:50)
[2018-02-28] MEDS: Diltiazem CD CAP* 240 MG PO SCH (08:50)
[2018-02-28] MEDS: metFORMIN* 1,000 MG TAB PO SCH (08:50)
[2018-02-28] MEDS: Furosemide TAB* 40 MG PO SCH (08:50)
[2018-02-28] MEDS: PANTOPRAZOLE 40 MG G TUBE SCH (08:53)
--- NOTE | 2018-02-28 09:36 | RAD ---
Indication: RIGHT hip pain post fall. Comparison: February 27, 2018 PET/CT. Technique: AP pelvis and AP and frog-leg lateral views RIGHT hip. Report: RIGHT total hip prosthesis in place. No periprosthetic fracture or stigmata of component loosening evident. Postsurgical change of multilevel lumbar sacral spine hardware fusion. No pelvic fracture or joint diastases evident. Unremarkable soft tissue contours. Innumerable pelvic phleboliths. Pyelographic phase contrast at the largely decompressed urinary bladder from the CT of one day prior. IMPRESSION: #. No radiographic evidence for prosthetic RIGHT hip loosening or periprosthetic fracture.
[2018-02-28] MEDS: Insulin LISPRO* 1 UNITS UNIT SUBCUT SCH ×3 (11:58→20:42)
--- NOTE | 2018-02-28 15:37 | PN ---
Subjective Date of Service: 02/28/18 Interval History: Pain present in arms and hips. Feels she cannot walk without. Would like placement in [facility] care but not [place] Objective Active Medications: Dextrose (D50w Syringe 50 Ml*) 12.5 gm IV PUSH .FOR FS < 60 - SS PRN PRN Reason: FS < 60 Diltiazem HCl (Cardizem Cd Cap*) 240 mg PO DAILY [facility] Last Admin: 02/28/18 08:50 Dose: 240 mg Enoxaparin Sodium (Lovenox(*)) 40 mg SUBCUT Q24H [facility] Last Admin: 02/28/18 07:45 Dose: 40 mg Furosemide (Lasix Tab*) 40 mg PO DAILY [facility] Last Admin: 02/28/18 08:50 Dose: 40 mg Insulin Human Lispro (Humalog*) 0 units SUBCUT ACHS [facility]; Protocol Last Admin: 02/28/18 11:58 Dose: 2 units Lorazepam (Ativan Tab(*)) 1 mg PO QID [facility] Last Admin: 02/28/18 13:23 Dose: 1 mg Losartan Potassium (Cozaar Tab*) 50 mg PO DAILY [facility] Last Admin: 02/28/18 08:50 Dose: 50 mg Metformin HCl (Glucophage*) 500 mg PO QPM [facility] Metformin HCl (Glucophage*) 1,000 mg PO DAILY [facility] Last Admin: 02/28/18 08:50 Dose: 1,000 mg Oxycodone HCl (Roxycodone Tab*) 15 mg PO Q4H PRN PRN Reason: PAIN Last Admin: 02/28/18 14:01 Dose: 15 mg Pantoprazole Sodium (Protonix Susp (Nf)) 40 mg G TUBE DAILY [facility]; Protocol Last Admin: 02/28/18 08:53 Dose: Not Given Zolpidem Tartrate (Ambien Tab*) 10 mg PO BEDTIME PRN PRN Reason: SLEEP Last Admin: 02/28/18 02:45 Dose: 10 mg Vital Signs - 8 hr 02/28/18 02/28/18 02/28/18 07:42 08:00 08:07 Temperature 98.1 F Pulse Rate 59 Respiratory 18 16 16 Rate Blood Pressure 113/46 (mmHg) O2 Sat by Pulse 92 Oximetry 02/28/18 02/28/18 02/28/18 08:30 08:50 10:39 Temperature Pulse Rate 72 Respiratory 16 16 Rate Blood Pressure (mmHg) O2 Sat by Pulse Oximetry 02/28/18 02/28/18 02/28/18 11:13 11:24 13:23 Temperature 97.0 F Pulse Rate 63 Respiratory 16 16 16 Rate Blood Pressure 110/56 (mmHg) O2 Sat by Pulse 94 Oximetry 02/28/18 14:01 Temperature Pulse Rate Respiratory 16 Rate Blood Pressure (mmHg) O2 Sat by Pulse Oximetry Oxygen Devices in Use Now: None Appearance: obese, seitting on side of bed Eyes: No Scleral Icterus, PERRLA Ears/Nose/Mouth/Throat: NL Teeth, Lips, Gums Neck: NL Appearance and Movements; NL JVP Respiratory: Symmetrical Chest Expansion and Respiratory Effort, Clear to Auscultation Cardiovascular: RRR Abdominal: NL Sounds; No Tenderness; No Distention, No Hepatosplenomegaly Neurological: Alert and Oriented x 3, - - low frequency head tremor Result Diagrams: 02/27/18 19:08 02/27/18 20:14 Assess/Plan/Problems-Billing Assessment: 63 yo F h/o CAD, DM2, HTN with recent admission in November for CP then discharged to [place] with subsequent return to [facility] and shelter admission at the end of December now returning after her walker broke and she fell again admitted [facility] for perceived inability to care for herself at home. - Patient Problems (1) Pain Comment: c.w home oxycodone [facility] admission (2) Diastolic heart failure Comment: chronic and compensated c/w lasix (3) Diabetes Comment: A1c 11.9% in November c/w SS lispro and metformin Start lantus based on SS need (4) Hypertension Comment: cardizem losartan (5) DVT prophylaxis Comment: change lovenox to HSG tomorrow based on obesity
--- NOTE | 2018-02-28 17:29 | HP ---
CC: Dr. Olga Cavanaugh ADMISSION HISTORY AND PHYSICAL: DATE OF ADMISSION: 02/28/18 CHIEF COMPLAINT: Fall. HISTORY OF PRESENT ILLNESS: Ms. Barragan is a 63-year-old woman with multiple medical problems, who was walking with a walker in her home when the walker failed and broke, and the patient fell down the sta irs. She reports pain in her right hip, her low back, her shoulder. She denies any head injury. 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 Sanderson. She also has histo ry of left total knee replacement in the past. Her most recent surgical history at this hospital was left rotator cuff arthroscopy with Dr. Cantu in 2013. She has been seeing [place] [facility] [place] I do not have records available at this time. The patient was evaluated in the ER after fall and had multiple x-rays and she was assessed. She was able to walk with a walker in the ER a s well. PAST MEDICAL HISTORY: Includes type 2 diabetes, hyperlipidemia, hypertension, coronary artery diseas e, hypothyroidism, morbid obesity, history of pacemaker placement. PAST SURGICAL HISTORY: Lumbar laminectomy, left rotator cuff repair, bilateral total knee replacemen ts, right hip replacement, . MEDICATIONS: On admission are: 1. Furosemide 40 mg p.o. q.a.m. 2. Irbesartan 150 mg p.o. q. day. 3. Metformin 1000 mg p.o. in the a.m. and metformin 500 mg p.o. in the p.m. 4. Protonix 40 mg p.o. q. day. 5. Ambien 10 mg p.o. q.h.s. p.r.n. 6. Cardizem CD 240 mg p.o. q. day. 7. Lorazepam 1 mg p.o. four times a day p.r.n. anxiety. 8. Oxycodone 15 mg p.o. q.4 hours p.r.n. for pain. ALLERGIES: CEFAZOLIN, CITALOPRAM, NAPROXEN, PROPOFOL, SULFA, PENICILLIN, and SONATA. FAMILY HISTORY: Notable for father at age 57 of heart disease, brother at age 51 of ME. SOCIAL HISTORY: She is disabled and retired. She is single. She has no children. Her mother is her surrogate decision maker; her name is Juhi Omer. She does not smoke. Denies any alcohol or drug use. REVIEW OF SYSTEMS: The patient denies any fevers, weight loss, anorexia. The patient denies any tresa st pain or palpitations. The patient denies any cough, shortness of breath, or hemoptysis. Remainde r of 14-point review of systems is negative other than mentioned in the HPI. PHYSICAL EXAMINATION GENERAL: She is alert, obese, no acute distress. VITAL SIGNS: Temperature is 36.6, pulse 59, respirations 15, blood pressure is 138/81, oxygen satura tion is 95%. HEENT: Head is normocephalic, atraumatic. Sclerae anicteric. Pupils are equal, round, reactive to light and accommodation. Oropharynx is moist. No lesions. NECK: No JVD. No carotid bruit. No thyromegaly. LUNGS: Clear to auscultation and percussion bilaterally. HEART: Regular rate and rhythm. No murmurs or gallops. ABDOMEN: Soft, nontender. Positive bowel sounds. No hepatosplenomegaly. EXTREMITIES: No peripheral edema. Dorsalis pedis pulse is 1+ bilaterally. There is tenderness of t he right hip greater trochanter. No deformity. Full range of motion. NEUROLOGIC: Cranial nerves II through XII are intact. Motor strength is 5/5 throughout. Deep tendo n reflexes are symmetric. DIAGNOSTIC STUDIES/LAB DATA: Sodium 136, potassium 4.1, chloride 101, bicarb 27, BUN 8, creatinine 0.52, glucose 221, calcium 9.5. AST 44, ALT 41, bilirubin 0.7, alk phos 127. INR 1.53. White count 5.9, hemoglobin 12.7, hematocrit 38%, platelets are 306. Chest x-ray shows negative. Right shoulder: No fracture. Right foot: No fracture. C-spine CT: Negative. Abdominal pelvis CT: Negative. ASSESSMENT AND PLAN: A 63-year-old woman with mechanical fall, who has multiple contusions, no fract ures. The patient was able to ambulate a short distance in the ER but cannot go home safely alone wh ere she lives alone. The patient will be admitted to the hospital for assessment, physical therapy, and Social Work to assess whether she needs to go to subacute rehabilitation or she can go home. We will obtain x-ray of her right hip as this was not imaged in the ER. For diabetes, we will continue her current medications and give her additional sliding scale insulin if needed. For her hypertension, we will continue her current medications. Code status is full. DVT prophylaxis will be accomplished with subcutaneous Lovenox. [id number]/[facility] #: [id number]
[2018-02-28] MEDS: metFORMIN* 500 MG TAB PO SCH (17:49)
[2018-03-01] MEDS: oxyCODONE TAB* 5 MG TAB PO PRN ×5 (03:02→21:13)
[2018-03-01] MEDS: Heparin VIAL(*) 5000 UNITS/ML VIAL (FIVE THOUSAND) SUBCUT SCH ×3 (06:25→21:12)
[2018-03-01] MEDS: Insulin LISPRO* 1 UNITS UNIT SUBCUT SCH ×4 (08:25→21:55)
[2018-03-01] MEDS: Furosemide TAB* 40 MG PO SCH (08:26)
[2018-03-01] MEDS: metFORMIN* 1,000 MG TAB PO SCH (08:26)
[2018-03-01] MEDS: Losartan TAB* 25 MG PO SCH (08:26)
[2018-03-01] MEDS: LORazepam TAB(*) 1 MG PO SCH ×4 (08:26→21:12)
[2018-03-01] MEDS: Diltiazem CD CAP* 240 MG PO SCH (08:27)
[2018-03-01] MEDS: PANTOPRAZOLE 40 MG G TUBE SCH (08:30)
--- NOTE | 2018-03-01 16:07 | PN ---
Subjective Date of Service: 03/01/18 Interval History: OOB to chair today Notes pain that lasts for seconds to minutes in chest relieved by holding her breath Pain in chest is reproducible with palpation Pain in multiple joints continues Objective Active Medications: Dextrose (D50w Syringe 50 Ml*) 12.5 gm IV PUSH .FOR FS < 60 - SS PRN PRN Reason: FS < 60 Diltiazem HCl (Cardizem Cd Cap*) 240 mg PO DAILY [facility] Last Admin: 03/01/18 08:27 Dose: 240 mg Furosemide (Lasix Tab*) 40 mg PO DAILY [facility] Last Admin: 03/01/18 08:26 Dose: 40 mg Heparin Sodium (Porcine) (Heparin Vial(*)) 5,000 units SUBCUT Q8HR [facility] Last Admin: 03/01/18 13:21 Dose: 5,000 units Insulin Human Lispro (Humalog*) 0 units SUBCUT ACHS [facility]; Protocol Last Admin: 03/01/18 12:13 Dose: 2 units Lorazepam (Ativan Tab(*)) 1 mg PO QID [facility] Last Admin: 03/01/18 12:13 Dose: 1 mg Losartan Potassium (Cozaar Tab*) 50 mg PO DAILY [facility] Last Admin: 03/01/18 08:26 Dose: 50 mg Metformin HCl (Glucophage*) 500 mg PO QPM [facility] Last Admin: 02/28/18 17:49 Dose: 500 mg Metformin HCl (Glucophage*) 1,000 mg PO DAILY [facility] Last Admin: 03/01/18 08:26 Dose: 1,000 mg Oxycodone HCl (Roxycodone Tab*) 15 mg PO Q4H PRN PRN Reason: PAIN Last Admin: 03/01/18 12:52 Dose: 15 mg Pantoprazole Sodium (Protonix Susp (Nf)) 40 mg G TUBE DAILY [facility]; Protocol Last Admin: 03/01/18 08:30 Dose: Not Given Zolpidem Tartrate (Ambien Tab*) 10 mg PO BEDTIME PRN PRN Reason: SLEEP Last Admin: 02/28/18 22:05 Dose: 10 mg Vital Signs - 8 hr 03/01/18 03/01/18 03/01/18 08:26 08:27 08:28 Temperature 97.8 F Pulse Rate 71 Respiratory 18 16 18 Rate Blood Pressure 139/75 (mmHg) O2 Sat by Pulse 95 Oximetry 03/01/18 03/01/18 03/01/18 11:13 11:25 11:26 Temperature 97.8 F Pulse Rate 80 Respiratory 16 18 18 Rate Blood Pressure 127/65 (mmHg) O2 Sat by Pulse 97 Oximetry 03/01/18 03/01/18 03/01/18 12:13 12:52 15:11 Temperature Pulse Rate Respiratory 18 18 16 Rate Blood Pressure (mmHg) O2 Sat by Pulse Oximetry 03/01/18 15:30 Temperature 98.2 F Pulse Rate 78 Respiratory 16 Rate Blood Pressure 108/72 (mmHg) O2 Sat by Pulse 96 Oximetry Oxygen Devices in Use Now: None Appearance: NAD Eyes: No Scleral Icterus Ears/Nose/Mouth/Throat: NL Teeth, Lips, Gums, Clear Oropharnyx Neck: NL Appearance and Movements; NL JVP, Trachea Midline Respiratory: Symmetrical Chest Expansion and Respiratory Effort, Clear to Auscultation Cardiovascular: RRR Abdominal: NL Sounds; No Tenderness; No Distention, No Hepatosplenomegaly Lymphatic: No Cervical Adenopathy Extremities: - - trace le edema Neurological: Alert and Oriented x 3, - - low frequency head tremor Result Diagrams: 02/27/18 19:08 02/27/18 20:14 Assess/Plan/Problems-Billing Assessment: 63 yo F h/o CAD, DM2, HTN with recent admission in November for CP then discharged to [place] with subsequent [place] [facility] [place] admission at the end of December now returning after her walker broke and she fell again admitted [facility] for perceived inability to care for herself at home. - Patient Problems (1) Pain Comment: c/w home oxycodone [facility] (2) Diastolic heart failure Comment: chronic and compensated c/w lasix (3) Diabetes Comment: A1c 11.9% in November c/w SS lispro and metformin (4) Hypertension Comment: cardizem losartan (5) DVT prophylaxis Comment: HSQ
[2018-03-01] MEDS: metFORMIN* 500 MG TAB PO SCH (17:13)
[2018-03-01] MEDS: Zolpidem TAB* 10 MG PO PRN (21:55)
[2018-03-02] MEDS: oxyCODONE TAB* 5 MG TAB PO PRN ×5 (01:45→20:00)
[2018-03-02] MEDS: Heparin VIAL(*) 5000 UNITS/ML VIAL (FIVE THOUSAND) SUBCUT SCH ×3 (05:26→20:01)
[2018-03-02] MEDS: Insulin LISPRO* 1 UNITS UNIT SUBCUT SCH ×4 (08:15→21:22)
[2018-03-02] MEDS: Losartan TAB* 25 MG PO SCH (08:15)
[2018-03-02] MEDS: metFORMIN* 1,000 MG TAB PO SCH (08:16)
[2018-03-02] MEDS: Levothyroxine TAB* 75 MCG TAB PO SCH (08:16)
[2018-03-02] MEDS: Furosemide TAB* 40 MG PO SCH (08:16)
[2018-03-02] MEDS: LORazepam TAB(*) 1 MG PO SCH ×4 (08:16→20:00)
[2018-03-02] MEDS: Diltiazem CD CAP* 240 MG PO SCH (08:16)
[2018-03-02] MEDS: CMC:Pantoprazole TAB (NF) 40 MG TAB PO SCH (09:55)
--- NOTE | 2018-03-02 15:34 | PN ---
Subjective Date of Service: 03/02/18 Interval History: Had pain in chest intermittently EKG unchanged, single trop 0.01 Feels other pain much better and OOB ambulating to hallway with walker Objective Active Medications: Dextrose (D50w Syringe 50 Ml*) 12.5 gm IV PUSH .FOR FS < 60 - SS PRN PRN Reason: FS < 60 Diltiazem HCl (Cardizem Cd Cap*) 240 mg PO DAILY [facility] Last Admin: 03/02/18 08:16 Dose: 240 mg Furosemide (Lasix Tab*) 40 mg PO DAILY [facility] Last Admin: 03/02/18 08:16 Dose: 40 mg Heparin Sodium (Porcine) (Heparin Vial(*)) 5,000 units SUBCUT Q8HR [facility] Last Admin: 03/02/18 13:42 Dose: 5,000 units Insulin Human Lispro (Humalog*) 0 units SUBCUT ACHS [facility]; Protocol Last Admin: 03/02/18 12:05 Dose: 1 units Levothyroxine Sodium (Synthroid Tab*) 75 mcg PO DAILY@0600 [facility] Last Admin: 03/02/18 08:16 Dose: 75 mcg Lorazepam (Ativan Tab(*)) 1 mg PO QID [facility] Last Admin: 03/02/18 13:42 Dose: 1 mg Losartan Potassium (Cozaar Tab*) 50 mg PO DAILY [facility] Last Admin: 03/02/18 08:15 Dose: 50 mg Metformin HCl (Glucophage*) 500 mg PO QPM [facility] Last Admin: 03/01/18 17:13 Dose: 500 mg Metformin HCl (Glucophage*) 1,000 mg PO DAILY [facility] Last Admin: 03/02/18 08:16 Dose: 1,000 mg Oxycodone HCl (Roxycodone Tab*) 15 mg PO Q4H PRN PRN Reason: PAIN Last Admin: 03/02/18 14:39 Dose: 15 mg Pantoprazole Sodium (Protonix Tab (Nf)) 40 mg PO DAILY [facility]; Protocol Last Admin: 03/02/18 09:55 Dose: 40 mg Zolpidem Tartrate (Ambien Tab*) 10 mg PO BEDTIME PRN PRN Reason: SLEEP Last Admin: 03/01/18 21:55 Dose: 10 mg Vital Signs - 8 hr 03/02/18 03/02/18 03/02/18 07:35 08:00 08:16 Temperature 97.8 F Pulse Rate 49 Respiratory 18 20 20 Rate Blood Pressure 106/43 (mmHg) O2 Sat by Pulse 92 Oximetry 03/02/18 03/02/18 03/02/18 08:17 10:04 10:18 Temperature Pulse Rate Respiratory 20 16 20 Rate Blood Pressure (mmHg) O2 Sat by Pulse Oximetry 03/02/18 03/02/18 03/02/18 11:54 12:07 13:42 Temperature 98.3 F Pulse Rate 61 Respiratory 18 20 16 Rate Blood Pressure 110/41 (mmHg) O2 Sat by Pulse 93 Oximetry 03/02/18 14:39 Temperature Pulse Rate Respiratory 20 Rate Blood Pressure (mmHg) O2 Sat by Pulse Oximetry Oxygen Devices in Use Now: None Appearance: NAD Eyes: No Scleral Icterus Respiratory: Symmetrical Chest Expansion and Respiratory Effort, Clear to Auscultation Cardiovascular: RRR Neurological: Alert and Oriented x 3 Result Diagrams: 02/27/18 19:08 02/27/18 20:14 Assess/Plan/Problems-Billing Assessment: 63 yo F h/o CAD, DM2, HTN with recent admission in November for CP then discharged to [place] with subsequent return [place] [facility] [place] admission at the end of December now returning after her walker broke and she fell again admitted [facility] for perceived inability to care for herself at home. - Patient Problems (1) Pain Comment: c/w home oxycodone [facility] admission (2) Diastolic heart failure Comment: chronic and compensated c/w lasix (3) Diabetes Comment: A1c 11.9% in November c/w SS lispro and metformin (4) Hypertension Comment: cardizem losartan (5) DVT prophylaxis Comment: HSQ (6) Chest pain Status: Acute Comment: trop wnl and ekg unchanged
[2018-03-02] MEDS: metFORMIN* 500 MG TAB PO SCH (17:54)
[2018-03-02] MEDS: Zolpidem TAB* 10 MG PO PRN (21:22)
[2018-03-03] MEDS: oxyCODONE TAB* 5 MG TAB PO PRN ×3 (00:14→09:18)
[2018-03-03] MEDS: Heparin VIAL(*) 5000 UNITS/ML VIAL (FIVE THOUSAND) SUBCUT SCH (04:38)
[2018-03-03] MEDS: Levothyroxine TAB* 75 MCG TAB PO SCH (04:39)
[2018-03-03 07:50] VITALS: BP 98/31
[2018-03-03] MEDS: Losartan TAB* 25 MG PO SCH (08:55)
[2018-03-03] MEDS: metFORMIN* 1,000 MG TAB PO SCH (08:56)
[2018-03-03] MEDS: Diltiazem CD CAP* 240 MG PO SCH (08:56)
[2018-03-03] MEDS: CMC:Pantoprazole TAB (NF) 40 MG TAB PO SCH (08:56)
[2018-03-03] MEDS: LORazepam TAB(*) 1 MG PO SCH (08:56)
[2018-03-03] MEDS: Furosemide TAB* 40 MG PO SCH (08:56)
[2018-03-03] MEDS: Insulin LISPRO* 1 UNITS UNIT SUBCUT SCH (08:57)
--- NOTE | 2018-03-03 08:58 | DS ---
CC: Olga Cavanaugh MD; [facility] * DISCHARGE SUMMARY: DATE OF ADMISSION: 02/27/18 DATE OF DISCHARGE: 03/03/18 PRIMARY CARE PROVIDER: Olga Cavanaugh MD. DISPOSITION ON DISCHARGE: [facility]. PRIMARY DIAGNOSIS: Fall with pain and general disability. SECONDARY DIAGNOSES: Include: 1. Type 2 diabetes. 2. Hyperlipidemia. 3. Hypertension. 4. History of coronary artery disease. 5. Hypothyroidism. 6. Morbid obesity. 7. Permanent pacemaker. MEDICATIONS ON DISCHARGE: Include: 1. Metformin 1000 mg in the morning and 500 mg in the evening. 2. Oxycodone 15 mg so far as needed for pain. 3. Diltiazem CD 240 mg daily. 4. Lasix 40 mg daily. 5. Pantoprazole 40 mg daily. 6. Lorazepam 1 mg 4 times a day as needed. 7. Irbesartan 150 mg daily. 8. Zolpidem 10 mg at bedtime as needed for insomnia. 9. Levothyroxine 75 mcg daily. No medication change during the course of this hospital stay. HISTORY OF PRESENT ILLNESS AND HOSPITAL COURSE: This is a 63-year-old female with past medical history as indicated in the history of present illness, on the day of admission presented to the hospital after fall down approximately 5 stairs after her walker broke and she was going down with it. She had multiple x-rays on presentation of her cervical spine, chest, shoulder, foot and hip as well as a CT of her abdomen and pelvis and brain without indicative of any evidence of injury. She had no pertinent laboratory data, was deemed safe for discharge, however. The patient did not feel comfortable returning home. 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 This will be, I believe a third subacute care stay since December for this woman. The patient accepted skilled nursing care, was placed in the hospital. During the course of her hospital stay, her pain improved. She was able to ambulate with the walker back and forth in the hallway. By the time of discharge, her pain improved on her home medication regimen. She did complain of intermittent chest pain overnight on the day prior to discharge as well as throughout the day that lasted seconds to sometimes minutes. She had an EKG that was checked that was unchanged from previous as well as one troponin which was at 0.01. There was low suspicion for cardiac ischemia, felt that the pain was more likely secondary to trauma from her fall and indeed her pain was reproducible with palpation. At followup, please; 1. Continue to work with Physical Therapy, improve tolerance, ensure safe discharge plan as she has returned to the hospital multiple times after discharge from subacute rehab. 2. Continue to follow blood pressure, on irbesartan, diltiazem and Lasix. 3. Follow volume status on Lasix, adjust this as necessary. 4. Intermittent basic metabolic panel, will follow creatinine on her Lasix. 5. Diabetic control on metformin. 6. No other specific labs or vitals that need followup. Reasons to return to the hospital including but not limited to, recurrent or worsening symptoms, chest pain, shortness of breath, nausea, vomiting, lightheadedness, loss of consciousness, bleeding from any source, inability to obtain or tolerate medications were discussed with the patient and she acknowledged understanding. TIME SPENT: Greater than 45 minutes were spent on the discharge of the patient , greater than half was spent [id number] with the patient. [id number]/[facility] #: [id number] [facility]
== END 2018-03-03 11:30 | DRG 556 ==
LOC: ED 17:34 → MEDTELE 02-28 01:37
PROVIDERS: ADMIT Internal Medicine; ATTEND Internal Medicine
DX: M25.551 Pain in right hip (principal); I50.32 Chronic diastolic (congestive) heart failure; Z68.41 Body mass index [BMI] 40.0-44.9, adult; M54.5 Low back pain; W10.8XXA Fall (on) (from) other stairs and steps, initial encounter; E11.9 Type 2 diabetes mellitus without complications; E78.5 Hyperlipidemia, unspecified; I25.10 Atherosclerotic heart disease of native coronary artery without angina pectoris; E03.9 Hypothyroidism, unspecified; E66.01 Morbid (severe) obesity due to excess calories; R10.9 Unspecified abdominal pain; Z96.641 Presence of right artificial hip joint; Z96.653 Presence of artificial knee joint, bilateral; M25.512 Pain in left shoulder; M25.511 Pain in right shoulder; R51 Headache; M54.2 Cervicalgia; I11.0 Hypertensive heart disease with heart failure; K21.9 Gastro-esophageal reflux disease without esophagitis; K58.9 Irritable bowel syndrome, unspecified; F41.9 Anxiety disorder, unspecified; R07.9 Chest pain, unspecified; R40.2362 Coma scale, best motor response, obeys commands, at arrival to emergency department; R40.2142 Coma scale, eyes open, spontaneous, at arrival to emergency department; R40.2252 Coma scale, best verbal response, oriented, at arrival to emergency department; Z79.84 Long term (current) use of oral hypoglycemic drugs; Y92.009 Unspecified place in unspecified non-institutional (private) residence as the place of occurrence of the external cause; Z88.1 Allergy status to other antibiotic agents; Z88.0 Allergy status to penicillin; Z88.2 Allergy status to sulfonamides; Z88.8 Allergy status to other drugs, medicaments and biological substances; Z82.49 Family history of ischemic heart disease and other diseases of the circulatory system; Z86.718 Personal history of other venous thrombosis and embolism; Z85.828 Personal history of other malignant neoplasm of skin; Z90.710 Acquired absence of both cervix and uterus; Z86.14 Personal history of Methicillin resistant Staphylococcus aureus infection; Z83.3 Family history of diabetes mellitus; Z80.3 Family history of malignant neoplasm of breast; Z95.0 Presence of cardiac pacemaker
CPT/HCPCS: 36415; 70450; 71045; 72125; 74177; 80053; 84484; 85025; 85610; 93005; 99283; A9270-GY; G8978-GP-CJ; G8979-GP-CI; J1644; J1650; J2270; J2405; Q9967

== ENCOUNTER 2018-03-23 04:58 | Observation (INO) | payer MEDICARE, MEDICAID ==
--- NOTE | 2018-03-23 05:10 | ED ---
HPI Chest Pain - HPI Summary HPI Summary: A 63 y/o F GABBIE presents to ED with c/o intermittent episodes of L-anterior CP onset two days ago. Episodes are occurring more frequently. Associated sx: bilat pedal edema, distended abd, SOB with exertion. She says she's gained approx 20 lbs. Pt ambulates with a walker. PMHx: liver infections, angina, CHF. Dr. Hdez is her bathroom tiling professional. Dr. Miller is her PCP. She is not on home O2. Non-smoker. EMS gave her aspirin and 1 nitro en route. - History of Current Complaint Time Seen by Provider: 03/23/18 05:08 Hx Obtained From: Patient Onset/Duration: Started Days Ago, Still Present Timing: Intermittent Initial Severity: Moderate Current Severity: Moderate Pain Intensity: 7 Pain Scale Used: 0-10 Numeric Chest Pain Location: Left Anterior Associated Signs and Symptoms: Positive: Shortness of Breath, Edema - LE, Other : - abd distension - Additional Pertinent History Primary Care Physician: ATUL - Allergy/Home Medications Allergies/Adverse Reactions: Allergies Allergy/AdvReac Type Severity Reaction Status Date / Time cefazolin [From Ancef] Allergy Unknown Verified 12/14/17 00:42 Reaction Details citalopram [From Celexa] Allergy Insomnia Verified 12/14/17 00:42 naproxen Allergy Vomiting Verified 12/14/17 00:42 NSAIDS (Non-Steroidal Allergy GI Upset Verified 12/14/17 00:42 Anti-Inflamma Penicillins Allergy Rash Verified 12/14/17 00:42 propofol Allergy See Comment Verified 12/14/17 00:42 Sulfa (Sulfonamide Allergy Unknown Verified 12/14/17 00:42 Antibiotics) Reaction Details zaleplon [From Sonata] Allergy Insomnia Verified 12/14/17 00:42 PMH/Surg Hx/FS Hx/Imm Hx Previously Healthy: No Endocrine/Hematology History: Reports: Hx Blood Transfusions, Hx Diabetes Denies: Hx Anticoagulant Therapy, Hx Blood Disorders, Hx Bone Marrow Disease , Hx Systemic Lupus Erythematosus, Hx Sickle Cell Disease, Hx Thyroid Disease, Hx Anemia, Hx Unexplained Bleeding Cardiovascular History: Reports: Hx Angina, Hx Auto Implanted Cardiovert Defib, Hx Cardiomegaly - SINCE IN HER TEENS, Hx Congestive Heart Failure, Hx Deep Vein Thrombosis, Hx Hypertension, Hx Pacemaker/ICD, Other Cardiovascular Problems/ Disorders - Pericarditis Denies: Hx Coronary Artery Disease, Hx Hypercholesterolemia, Hx Myocardial Infarction, Hx Peripheral Vascular Disease, Hx Valvular Heart Disease Respiratory History: Reports: Other Respiratory Problems/Disorders - sob associated - inspiratory pain left ribs, abdominal distention per pt Denies: Hx Asthma, Hx Chronic Obstructive Pulmonary Disease (COPD) GI History: Reports: Hx Gastroesophageal Reflux Disease, Hx Irritable Bowel, Other GI Disorders - ABDOMEN DISTENDED Denies: Hx Cirrhosis, Hx Ulcer History: Denies: Hx Dialysis, Hx Renal Disease Musculoskeletal History: Reports: Hx Back Problems - back surgery x 3, Hx Orthopedic Injury, Other Musculoskeletal History - knee, hip surgery hx Denies: Hx Bursitis, Hx Congenital Bone Abnormalities, Hx Fibromyalgia, Hx Gout, Hx Osteoporosis, Hx Scoliosis, Hx Tendonitis Sensory History: Reports: Hx Contacts or Glasses - for driving Denies: Hx Cataracts, Hx Eye Injury, Hx Eye Prosthesis, Hx Glaucoma, Hx Macular Degeneration, Hx Vision Problem, Hx Deafness, Hx Hearing Aid, Hx Hearing Problem, Other Sensory Impairments Opthamlomology History: Reports: Hx Contacts or Glasses - for driving Denies: Hx Cataracts, Hx Eye Injury, Hx Eye Prosthesis, Hx Glaucoma, Hx Macular Degeneration, Hx Vision Problem, Other Sensory Impairments Neurological History: Denies: Hx Dementia, Hx Developmental Delay, Hx Headaches, Hx Migraine, Hx Seizures, Hx Spinal Cord Injury, Hx Transient Ischemic Attacks (TIA), Other Neuro Impairments/Disorders - LOC WITH FALLL Psychiatric History: Reports: Hx Anxiety Denies: Hx Attention Deficit Hyperactivity Disorder, Hx Eating Disorder, Hx Depression, Hx Panic Disorder, Hx Post Traumatic Stress Disorder, Hx Inpatient Treatment, Hx Schizophrenia, Hx Bipolar Disorder, Hx Suicide Attempt, Hx Substance Abuse, Other Psychiatric Issues/Disorders - Cancer History Cancer Type, Location and Year: skin cancer on right leg, removed Hx Chemotherapy: No Hx Radiation Therapy: No - Surgical History Surgery Procedure, Year, and Place: left shoulder surgery Jul 08 2013 csections x 3. partial hysterectomy. 3 back surgeries. right hip REPLACEMENT. LEFT KNEE RECONSTRUCTION. PACEMAKER [id number]. 3 C- SECTIONS. RIGHT SHOULDER ROTATOR CUFF REPAIR - 15 YEARS AGO. UMBILICAL HERNIA REPAIR Hx Anesthesia Reactions: Yes - PROPOFOL REACTION- THRASHING AND SCREAMING - Immunization History Date of Tetanus Vaccine: utd Date of Influenza Vaccine: utd Infectious Disease History: Reports: Hx Clostridium Difficile, Hx of Known/ Suspected MRSA Denies: Hx Hepatitis, Hx Human Immunodeficiency Virus (HIV), Hx Shingles, Hx Tuberculosis - Family History Known Family History: Positive: Cardiac Disease - CAD, Diabetes, Other - Breast CA - Social History Occupation: Disabled Lives: Alone Alcohol Use: None Hx Substance Use: No Substance Use Type: Reports: None Hx Tobacco Use: No Smoking Status (MU): Never Smoked Tobacco Have You Smoked in the Last Year: No Review of Systems Positive: Chest Pain Positive: Shortness Of Breath - with exertion Positive: Other - pos: abd distension Positive: Edema - bilat LE All Other Systems Reviewed And Are Negative: Yes Physical Exam - Summary Physical Exam Summary: Appearance: Well appearing, no pain distress Skin: warm, dry, reflects adequate perfusion Head/face: normal Eyes: EOMI, LOLI ENT: mucous membranes moist Neck: supple, non-tender, no JVD Respiratory: CTA, extremely diminished breath sounds in bases, no crackles Cardiovascular: RRR, pulses symmetrical, pacemaker in L chest Abdomen: non-tender, soft distension of abd Bowel Sounds: present Musculoskeletal: normal, strength/ROM intact, mild tremor, soft edema non- pitting in bilat LE Neuro: normal, sensory motor intact, A&Ox3 Triage Information Reviewed: Yes Vital Signs Reviewed: Yes Diagnostics - Laboratory Result Diagrams: 03/23/18 05:50 03/23/18 05:50 Lab Statement: Any lab studies that have been ordered have been reviewed, and results considered in the medical decision making process. - Radiology CXR Radiology Interpretation Completed By: ED Physician Summary of Radiographic Findings: Cardiomegaly, no pleural effusion, no significant change from previous, no significant CHF. - EKG 0500 EKG Rhythm: Sinus Rhythm - 67 bpm EKG Comparison: No Significant Change - from previous EKGs Summary of EKG Findings: 1st degree AV block, LVH criteria, IVCD, lateral T wave inversions Re-Evaluation - Re-Evaluation 1 Re-Evaluation Time: 06:35 Change: Improved Comment: Bedside U/S shows no abd ascites. Visible right hip replacement scar. Some improvement with nitroglycerin Chest Pain Course/Dx - Course Course Of Treatment: Patient with frequent hospitalizations. Today she alleges a 20 pound weight gain and worsening congestive heart failure. On x-ray there are no pleural effusions and no significant findings consistent with CHF. Her BNP is not elevated. There is no ascites seen on bedside ultrasound of the abdomen. She has no significant changes on EKG which does show chronic T-wave inversions in the lateral leads. Initial troponin is nonelevated. Patient wishes to be admitted and to see her bathroom tiling professional. I discussed the case with the hospitalist who knows the patient well. The patient has been admitted several times for long term reasons. I suspect that there are social reasons for the presentation today but I cannot fully rule out an exacerbation of her chronic angina now becoming unstable. - Chest Pain Differential Diagnosis/HQI/PQRI: Acute ID, ACS, Angina, CHF, Chest Wall, GI Disease, Lower Respiratory Infection, Pulmonary Edema - Diagnoses Provider Diagnoses: Unstable angina, Chronic pain - Provider Notifications Discussed Care Of Patient With: Noemy Robertson - hospitalist Time Discussed With Above Provider: 06:41 Instructed by Provider To: Admit As Inpatient Discharge - Sign-Out/Discharge Documenting (check all that apply): Patient Departure - ADMIT - Discharge Plan Condition: Fair Disposition: ADMITTED TO [facility] Referrals: Olga Cavanaugh MD [Primary Care Provider] - - Billing Disposition and Condition Condition: FAIR Disposition: Admitted to [facility] - Attestation Statements Document Initiated by Scribe: Yes Documenting Scribe: [place] Provider For Whom Katelyn is Documenting (Include Credential): Dr. Flaco Kasper MD Scribe Attestation: ILos, scribed for Dr. Flaco Kasper MD on 03/23/18 at 0703. Scribe Documentation Reviewed: Yes Provider Attestation: The documentation as recorded by the [place] espino accurately reflects the service I personally performed and the decisions made by me, Dr. Flaco Kasper MD
[2018-03-23] MEDS ORDERED: Nitroglycerin TAB 0.4 MG* 0.4 MG TAB SL ONE (05:24)
[2018-03-23] MEDS ORDERED: Nitroglycerin 2% OINT* 1 GM PAK TOPICAL ONE (05:24)
[2018-03-23] MEDS ORDERED: Furosemide IV* 10 MG/ML 10 ML VIAL (100 MG) IV ONE (05:24)
[2018-03-23 06:16] LABS: INR 1.04 (0.77-1.02)
[2018-03-23 06:29] LABS: EGFR Non-African American 86.8 (>60)
[2018-03-23 06:44] LABS: Hematocrit 38 % (35-47); Hemoglobin 12.5 g/dl (12.0-16.0); Mean Corpuscular HGB Conc 33 g/dl (31-36); Mean Corpuscular Hemoglobin 31 pg (27-31); Mean Corpuscular Volume 93 fL (80-97); Platelet Count 301 10^3/ul (150-450); Red Blood Count 4.09 10^6/ul (4.00-5.40); Red Cell Distribution Width 17 % (10.5-15); White Blood Count 4.7 10^3/ul (3.5-10.8)
[2018-03-23 06:50] LABS: ABS Basophils 0 10^3/ul (0-0.2); Monocytes % 4 % (0-7)
--- NOTE | 2018-03-23 07:59 | RAD ---
Indication: Chest pain. Single frontal view of the chest performed at 0533 hours was reviewed. Comparison is made with previous exam dated February 27, 2018. Cardiomegaly is noted. Pacemaker leads are in place. Lung velasco are clear. IMPRESSION: CARDIOMEGALY. PACEMAKER LEADS ARE IN PLACE. NO PNEUMOTHORAX IS NOTED. NO CHANGES NOTED SINCE FEBRUARY 27, 2018
[2018-03-23] MEDS ORDERED: PROCHLORPERAZINE INJ 5 MG/ML 2 ML VIAL IV PRN (08:27)
[2018-03-23] MEDS ORDERED: Acetaminophen TAB* 325 MG PO PRN (08:27)
[2018-03-23] MEDS ORDERED: Dextrose 50% Syringe 50 ML* 25 GM/50 ML SYRINGE IV PUSH PRN (08:28)
[2018-03-23] MEDS ORDERED: Aspirin EC TAB* 81 MG TAB.EC PO SCH (09:00)
[2018-03-23] MEDS: oxyCODONE TAB* 5 MG TAB PO PRN ×4 (09:47→22:11)
[2018-03-23] MEDS ORDERED: Polyethylene Glycol 3350* 17 GM PACKET PO PRN (10:01)
[2018-03-23] MEDS ORDERED: Zolpidem TAB* 10 MG PO PRN (10:01)
[2018-03-23] MEDS: LORazepam TAB(*) 1 MG PO PRN ×4 (10:36→22:10)
[2018-03-23] MEDS: Losartan TAB* 25 MG PO SCH (10:37)
[2018-03-23] MEDS: Diltiazem CD CAP* 240 MG PO SCH (10:37)
--- NOTE | 2018-03-23 10:43 | HP ---
CC: Olga Cavanaugh MD HISTORY AND PHYSICAL: DATE OF ADMISSION: 03/23/18 TIME OF EVALUATION: 7:40 a.m. PRIMARY CARE PROVIDER: Olga Cavanaugh MD CHIEF COMPLAINT: Chest pain. HISTORY OF PRESENT ILLNESS: Ms. Barragan is a 63-year-old lady with multiple medical problems including morbid obesity with a BMI of 43, type 2 diabetes, hypertension, hyperlipidemia, coronary artery disea se, hypothyroidism, status post pacemaker placement, chronic pain who presents to the emergency room with complaints of left- sided chest pain. She states she was in her usual state of health until 3 days ago when she started to have left-sided chest pain radiating to her shoulder and left arm. She rates the pain as 7/10, intermittent, worsene d by deep inspiration and movement. Over the weekend, she also felt more short of breath and was hav ing difficulty going upstairs to her apartment and doing her usual chores around the house. She denies fever, chills, cough, urinary complaints. She states that her appetite has been poor and she had some nausea and one episode of vomiting two nights ago. She denies falls, trauma, any change in diet, or any sick contacts. PAST MEDICAL HISTORY: 1. Morbid obesity with a BMI of 43. 2. Type 2 diabetes. 3. Hyperlipidemia. 4. Hypertension. 5. Coronary artery disease. The patient last had a stress test in November 2017 showing a moderate solomon on of probable stress-induced ischemia involving the apex and apical anterior and apical segmental se gments. Magnitude of breast attenuation limits assessment. The perfusion abnormality is similar to 2017 exam. There is a dilated left ventricle with hypokinesis most marked at the apex with ejection fraction of 53%. At that time, she was seen in consultation by Cardiology (Dr. Alex) and he disagre ed with radiology reading. He was not convinced that there was any evidence of ischemia and he felt it was unchanged from her stress test back in September 2016 and there is no evidence of reverse of LV dila tation. He did not feel that the patient had any need for further workup for her chest pain and he f elt she was at a low risk for myocardial infarction. 6. Hypothyroidism. 7. Status post pacemaker placement. 8. Chronic pain. 9. Status post lumbar laminectomy. 10. Status post left rotator cuff repair. 11. Status post bilateral total knee replacements. 12. Status post right hip replacement. 13. Status post . MEDICATIONS: Medication list is not available at the time of this dictation. ALLERGIES: TO CEFAZOLIN, CITALOPRAM, NAPROXEN, PENICILLIN, PROPOFOL, SULFA, and SONATA. FAMILY HISTORY: Father had a heart disease in his 50s. Brother of an [place] at age 51. SOCIAL HISTORY: She is disabled, retired. She denies tobacco, alcohol, or drug use. Surrogate raquel schrader maker is her mother Juhi Daugherty, phone number is [phone]. The patient states that now she is living at [facility] independently in her apartment. REVIEW OF SYSTEMS: A 14-point review of systems was performed and all the pertinent negative and pos itive findings are in the HPI. PHYSICAL EXAMINATION GENERAL: The patient is a pleasant morbidly obese lady, lying in the ED stretcher, in no acute distr ess. VITAL SIGNS: Temperature 97.4, heart rate is 71, respiratory rate is 13, oxygen saturation is 93% on room air, blood pressure is 121/66. HEENT: Pupils are equal. Moist mucous membranes. CHEST: Breath sounds present bilaterally with no added sounds. CVS: Normal S1, S2. Regular rate and rhythm. There is severe pain on palpation of the left anterio r chest wall radiating to the left shoulder. ABDOMEN: Obese, soft. Bowel sounds are present. EXTREMITIES: No edema. NEURO: She is alert and oriented x3. Able to move all 4 extremities. LABORATORY AND IMAGING DATA: The patient had a CBC that showed WBC of 4.7, hemoglobin of 12.5, leonel tocrit of 38, platelets of 301,000 with 62% neutrophils. INR was 1.04. Chemistry showed sodium of 13 8, potassium of 3.7, chloride of 92, bicarb of 33, anion gap of 13, BUN of 16, creatinine of 0.6, glu cose of 171, lactic acid of 0.4, calcium of 9.2. LFTs were normal except for an AST of 41 and alk ph os of 124. Troponin is 0.01 x 2. BNP is 45. Chest x-ray showed cardiomegaly with pacemaker leads in place with no pneumothorax. No change when co mpared to her prior from 02/27/18. EKG done 03/23/18 at 5 a.m. showed sinus rhythm at 67 beats per minute with T-wave inversions in aVL, V4 through V6, and there is no significant change when compared to her prior EKG from 03/02/18. Her last stress test was in November 2017 as described in the HPI. Last transthoracic echocardiogram was also in November 2017 showing [id number] concentric LVH with global left ventricular wall motion and contractility within normal limits. Normal left ventricular systolic function at 55% to 60%. T he right ventricular chamber size and systolic function are within normal limits. Pacemaker wire was visualized in the right ventricle. There was trace AR, moderate mitral annular calcification with m ild mitral regurgitation. Trace TR. No significant pericardial effusion. ASSESSMENT AND PLAN: Ms. Barragan is a 63-year-old lady with multiple medical problems that include morb id obesity, type 2 diabetes, hypertension, hyperlipidemia, coronary artery disease, hypothyroidism, s tatus post pacemaker placement that presented to the emergency room with complaints of chest pain. 1. Musculoskeletal pain. The patient's presentation is compatible with musculoskeletal pain. She has severe pain on palpation radiating to her left shoulder, which I believe may be the source of her symptoms. She does have so me pain on deep inspiration and described that she had shortness of breath over the weekend, so I am going to check a CTA of the chest to rule out pulmonary embolism. She will be admitted as observation to telemetry. We are going to check serial troponins but as desc ribed above, the patient had a stress test and an echocardiogram 3 months ago and was also seen by Ca rdiology at that time. At this point, she does not have any signs of acute coronary syndrome. 2. Type 2 diabetes. We will check fingerstick with a lispro sliding scale. Her last A1c was 11.9 i n November. I will check another level now and we will wait for her medication reconciliation. She will have a lispro sliding scale. 3. Hypertension, appears to be controlled. We will continue her medications after confirmation. 4. Hyperlipidemia. We will continue medications after confirmation. 5. DVT prophylaxis. The patient has a score of 4 on a DVT Prophylaxis Risk Assessment Guide and she will be started on subcutaneous heparin. 6. Code status is full. TIME SPENT: Approximately 50 minutes were spent with the patient's interview, medical records review , physical examination to complete this admission, more than half of this time was spent [id number] with the patient and coordination of care. [id number]/[facility] #: [id number]
[2018-03-23] MEDS ORDERED: Iodixanol* (CONTRAST) 320 MG/ML 100 ML SDV IV ONE (11:19)
--- NOTE | 2018-03-23 12:35 | RAD ---
INDICATION: Dyspnea evaluate for pulmonary embolism. COMPARISON: Comparison is made with a prior CT angiogram of the chest from April 23, 2017. TECHNIQUE: A CT angiogram of the chest was performed with intravenous following intravenous injection of 92 ml of Visipaque 320 nonionic contrast. Contiguous axial sections were obtained from the lung apices through the lung bases. Images were reconstructed in the coronal and sagittal planes. FINDINGS: PULMONARY ARTERIES: The exam is slightly limited due to motion artifact at the lung bases. No intraluminal filling defect or pulmonary embolism is seen. The central pulmonary arteries appear enlarged suggestive of pulmonary artery hypertension. HEART: The heart is enlarged. No pericardial effusion is present. There is a transvenous pacemaker present. THORACIC AORTA: The aorta is normal in caliber and demonstrates homogeneous contrast opacification. LUNGS: There is mild dependent bilateral lower lobe subsegmental atelectasis. The lungs are otherwise clear. No pleural effusion is present. MEDIASTINUM: No significant enlarged mediastinal or hilar lymph nodes are seen. ABDOMEN: No acute findings are seen on the visualized portion of the upper abdomen. BONES: No significant focal osseous abnormality is seen. IMPRESSION: 1. SLIGHTLY LIMITED EXAM, NO EVIDENCE FOR PULMONARY EMBOLISM. 2. FINDINGS SUGGESTIVE OF PULMONARY ARTERY HYPERTENSION. 3. CARDIOMEGALY.
[2018-03-23] MEDS: Insulin LISPRO* 1 UNITS UNIT SUBCUT SCH ×3 (12:41→21:16)
[2018-03-23] MEDS: Heparin VIAL(*) 5000 UNITS/ML VIAL (FIVE THOUSAND) SUBCUT SCH ×2 (12:41→21:20)
[2018-03-23 13:36] LABS: ABS Neutrophils 5.4 10^3/ul (1.5-7.7)
[2018-03-23] MEDS ORDERED: Atorvastatin* 20 MG TAB PO SCH (21:00)
[2018-03-23] MEDS: Senna TAB PO SCH (21:19)
[2018-03-24] MEDS: oxyCODONE TAB* 5 MG TAB PO PRN ×3 (02:21→11:55)
[2018-03-24] MEDS: Heparin VIAL(*) 5000 UNITS/ML VIAL (FIVE THOUSAND) SUBCUT SCH (05:56)
[2018-03-24] MEDS ORDERED: Levothyroxine TAB* 75 MCG TAB PO SCH (06:00)
[2018-03-24 06:17] LABS: ABS Basophils 0 10^3/ul (0-0.2); ABS Eosinophils 0.1 10^3/ul (0-0.6); ABS Lymphocytes 2.2 10^3/ul (1.0-4.8); ABS Monocytes 0.6 10^3/ul (0-0.8); ABS Neutrophils 3.9 10^3/ul (1.5-7.7); ABS Nucleated RBC 0 10^3/ul; Eosinophil % 1.3 % (0-6); Hematocrit 37 % (35-47); Hemoglobin 12.4 g/dl (12.0-16.0); Mean Corpuscular HGB Conc 33 g/dl (31-36); Mean Corpuscular Hemoglobin 31 pg (27-31); Mean Corpuscular Volume 93 fL (80-97); Mean Platelet Volume 8.5 um3 (7.4-10.4); Nucleated Red Blood Cells % 0.1; Platelet Count 290 10^3/ul (150-450); Red Blood Count 3.99 10^6/ul (4.00-5.40); Red Cell Distribution Width 17 % (10.5-15); White Blood Count 6.9 10^3/ul (3.5-10.8)
[2018-03-24 06:45] LABS: EGFR Non-African American 75.2 (>60)
[2018-03-24] MEDS: LORazepam TAB(*) 1 MG PO PRN (06:57)
[2018-03-24] MEDS ORDERED: Omeprazole CAP* 20 MG PO SCH (07:30)
[2018-03-24] MEDS: Insulin LISPRO* 1 UNITS UNIT SUBCUT SCH ×2 (08:19→11:55)
[2018-03-24] MEDS: Losartan TAB* 25 MG PO SCH (08:19)
[2018-03-24] MEDS: Senna TAB PO SCH (08:20)
[2018-03-24] MEDS: Diltiazem CD CAP* 240 MG PO SCH (08:21)
[2018-03-24] MEDS ORDERED: Aspirin 81 mg CHEW TAB* 81 MG TAB.CHEW PO SCH (09:00)
[2018-03-24] MEDS ORDERED: Furosemide TAB* 40 MG PO SCH (09:00)
[2018-03-24] MEDS ORDERED: Prenatal Vitamin TAB PO SCH (09:00)
[2018-03-24] MEDS ORDERED: Cholecalciferol TAB* 1000 UNITS PO SCH (09:00)
--- NOTE | 2018-03-24 11:19 | DS ---
CC: Rossy Collier MD; Junior Escobar MD; Olga Cavanaugh MD * DISCHARGE SUMMARY: DATE OF ADMISSION: 03/23/18 DATE OF DISCHARGE: 03/24/18 PRIMARY CARE PROVIDER: Olga Cavanaugh MD ATTENDING FOR THIS ADMISSION: Rossy Collier MD MY ATTENDING FOR TODAY: Junior Escobar MD * (DICTATED BY ABIODUN VANG NP) HOSPITAL COURSE: This is a pleasant 63-year-old female patient who came to the emergency department with a complaint of left-sided chest pain. The pain was reproducible in nature; however, the patient was concerned because she had had a PE in the past and felt that she had some accompanying shortness of breath with this chest pain and exertional dyspnea. She came to the emergency department for evaluation; however, records indicated that 3 months ago, she had a negative stress test which was evaluated by Dr. Bruce Alex and also in 2017 had a negative stress test. Troponins were also negative and she had no EKG changes and no ectopy on telemetry. We did perform a CTA of the chest given her history and current complaints. Impression is that the CTA was a slightly limited exam, no evidence for pulmonary embolism, findings suggestive of pulmonary artery hypertension and some cardiomegaly, so no acute PE. Again, the patient had no further changes on telemetry and she was stable throughout the night and this morning. She does still have some reproducible chest wall pain but it appears to be musculoskeletal in nature. REVIEW OF SYSTEMS: The patient denies any fever, fatigue or chills. No shortness of breath, no abdominal pain, no nausea, no vomiting and no further constitutional complaints. PHYSICAL EXAM: Today, the patient is alert, well appearing. Vital Signs: Blood pressure 110/59, heart rate 72, respiratory rate 20, O2 saturation 98% on room air. HEENT: The patient is atraumatic, normocephalic. PERRLA with nonicteric sclerae. Neck is supple, nontender. No JVD noted. No carotid bruits auscultated. Cardiovascular: S1, S2 present. No murmurs, gallops or rubs noted. Lungs: Clear bilaterally to auscultation with no wheezing, rhonchi or rales. Chest wall: She does have pain to palpation in the left anterior chest wall into the left shoulder. Abdomen is soft, nontender, nondistended. Positive bowel sounds in all 4 quadrants and obese. Musculoskeletal: There is no clubbing, no cyanosis, no edema. She has +2 distal pulses palpable. Neurologic: She is grossly intact with no focalities. Gross motor and sensation are intact. LABORATORY DATA: WBC is 4.7, hemoglobin 12.5, hematocrit 38, platelets 301, 000. INR 1.04. Sodium 138, potassium 3.7, chloride 92, bicarb 33, BUN 16, creatinine 0.6, glucose 171. Lactic acid was negative. LFTs were normal. Troponins were negative x2. BNP was 45. DISCHARGE DIAGNOSES: 1. Chest wall pain, likely musculoskeletal in nature, deemed to be noncardiac in origin. 2. History of type 2 diabetes, currently controlled. 3. History of hypertension, currently controlled. 4. Hyperlipidemia, currently stable. DISCHARGE MEDICATIONS: Include: 1. Simvastatin 40 mg p.o. at bedtime. 2. Senna 2 tabs p.o. b.i.d. 3. MiraLax 17 g daily as needed. 4. Protonix 40 mg daily. 5. Multivitamin 1 tablet daily. 6. Levothyroxine 75 mcg daily. 7. Ativan 1 mg 4 times daily as needed. 8. Avapro 150 mg p.o. daily. 9. Diltiazem 240 mg p.o. daily. 10. Zolpidem 10 mg p.o. at bedtime as needed. 11. Metformin 1000 mg in the morning, 500 mg at night. 12. Lasix 40 mg p.o. daily. 13. Aspirin 81 mg daily. 14. Vitamin D 2000 units daily. 15. Oxycodone 15 mg q.4 hours as needed. 16. Tylenol 650 mg q.6 hours as needed. DISPOSITION: The patient will be discharged to [facility] for nursing and rehab. The patient has been accepted and will be transferred there today. DIET: She should have a heart healthy diabetic diet with consistent carbohydrate as tolerated. ACTIVITY: Out of bed as tolerated with no restrictions. The patient is being discharged in stable condition to [facility]. All questions were answered. The patient stated understanding of her discharge instructions and her medications. Please note there were no changes in medications from her admission. TIME SPENT: 35 minutes interfacing with the patient preparing her plan of discharge and discussing her case with the interdisciplinary care team. ABIODUN VANG, NAILHEAD SETTER [id number]/[facility] #: [id number] [facility]
[2018-03-24 11:55] VITALS: BP 105/63
== END 2018-03-24 12:43 ==
LOC: ED 04:58 → MEDTELE 07:43
PROVIDERS: ADMIT Internal Medicine; ATTEND Internal Medicine
DX: R07.89 Other chest pain (principal); E11.9 Type 2 diabetes mellitus without complications; I10 Essential (primary) hypertension; E78.5 Hyperlipidemia, unspecified; R06.02 Shortness of breath; R60.0 Localized edema; Z88.0 Allergy status to penicillin; Z85.828 Personal history of other malignant neoplasm of skin
CPT/HCPCS: 36415; 71045; 71275; 80048; 80053; 83036; 83605; 83880; 84484; 85025; 85610; 93005; 96372; 96374; 96375; 99283; A9270-GY; G0378; G8978-GP-CJ; G8979-GP-CI; J0780; J1644; J1940; Q9967

== ENCOUNTER 2018-05-19 20:26 | Observation (INO) | payer MEDICARE, MEDICAID ==
[2018-05-19] MEDS ORDERED: Nitroglycerin 2% OINT* 1 GM PAK TOPICAL ONE (20:33)
[2018-05-19] MEDS ORDERED: Ondansetron INJ* 2 MG/ML VIAL IV ONE (20:33)
[2018-05-19] MEDS ORDERED: Morphine VIAL* 4 MG/ML VIAL (1 ml vial) IV ONE (20:34)
--- NOTE | 2018-05-19 20:43 | ED ---
HPI Chest Pain - HPI Summary HPI Summary: A 63 y/o female brought in by ambulance presents to the ED c/o chest pain. Currently, the patient is still experiencing chest pain reaching 7/10 in severity. As per triage, "sudden onset of chest pain while sitting. has had episodes like this before, has angina hx. takes asa daily". As per EMS, patient had onset of chest pain about 3 hours ago sitting in a chair in the mid-sternal region. The pain is radiating to her neck and left arm reaching 7/10 in severity. Patient has a history of cardiovascular disease and DM. 324 mg of baby Aspirin and three NTG were given, however, her pain was still unrelieved as it is still at a 6/10. A 12-lead was done which revealed sinus rhythm ventricular hypertrophy. According to the patient, she was just sitting at home when the chest pain started going up her left arm and left chest. The pain started around 3-hours ago, but she didn't feel like herself all day. The pain started getting worse and worse even with taking baby Aspirin in the morning. She stated when the pain started that she was nauseated, diaphoretic, and vomited. Additionally, she felt cold at times. Patient ate fine today. Patient lives by herself. Leather Drier is Dr. Hdez. I reviewed the patient's past medical records here, including a discharge summary from 2 months ago and accompanying consultation from the solar design engineer. She has had 2 nuclear stress test in the past year, both of which were normal after correcting for breast attenuation. Leather Drier did not feel that there was any significant reversible defect. His note also said that she had a cardiac catheterization at another hospital back in 2016 which showed normal coronary arteries. She has had a number of admissions for chest pain, but has never ruled in for IL. She has not been prescribed any antianginal medications as far as I can tell. - History of Current Complaint Time Seen by Provider: 05/19/18 20:32 Hx Obtained From: Patient, EMS Onset/Duration: Started Hours Ago, Still Present Timing: Constant Initial Severity: Moderate - 7/10 Current Severity: Moderate - 7/10 Pain Intensity: 7 Pain Scale Used: 0-10 Numeric Chest Pain Location: Mid Sternal Chest Pain Radiates: Yes Chest Pain Radiates To:: Arm - LEFT Aggravating Factor(s): Nothing Alleviating Factor(s): Nothing Associated Signs and Symptoms: Positive: Chest Pain, Diaphoresis, Nausea, Vomiting - Additional Pertinent History Primary Care Physician: [id number] - Allergy/Home Medications Allergies/Adverse Reactions: Allergies Allergy/AdvReac Type Severity Reaction Status Date / Time cefazolin [From Ancef] Allergy Unknown Verified 05/19/18 20:36 Reaction Details citalopram [From Celexa] Allergy Insomnia Verified 05/19/18 20:36 naproxen Allergy Vomiting Verified 05/19/18 20:36 NSAIDS (Non-Steroidal Allergy GI Upset Verified 05/19/18 20:36 Anti-Inflamma Penicillins Allergy Rash Verified 05/19/18 20:36 propofol Allergy See Comment Verified 05/19/18 20:36 Sulfa (Sulfonamide Allergy Unknown Verified 05/19/18 20:36 Antibiotics) Reaction Details zaleplon [From Sonata] Allergy Insomnia Verified 05/19/18 20:36 PMH/Surg Hx/FS Hx/Imm Hx Endocrine/Hematology History: Reports: Hx Blood Transfusions, Hx Diabetes Denies: Hx Anticoagulant Therapy, Hx Blood Disorders, Hx Bone Marrow Disease , Hx Systemic Lupus Erythematosus, Hx Sickle Cell Disease, Hx Thyroid Disease, Hx Anemia, Hx Unexplained Bleeding Cardiovascular History: Reports: Hx Angina, Hx Auto Implanted Cardiovert Defib, Hx Cardiomegaly - SINCE IN HER TEENS, Hx Congestive Heart Failure, Hx Deep Vein Thrombosis, Hx Embolism, Hx Hypertension, Hx Pacemaker/ICD, Other Cardiovascular Problems/Disorders - pericarditis Denies: Hx Coronary Artery Disease, Hx Hypercholesterolemia, Hx Myocardial Infarction, Hx Peripheral Vascular Disease, Hx Valvular Heart Disease Respiratory History: Reports: Hx Chronic Bronchitis, Hx Pneumonia, Other Respiratory Problems/Disorders - sob associated - inspiratory pain left ribs, abdominal distention per pt Denies: Hx Asthma, Hx Chronic Obstructive Pulmonary Disease (COPD) GI History: Reports: Hx Gastroesophageal Reflux Disease, Hx Irritable Bowel, Other GI Disorders - ABDOMEN DISTENDED, IBS Denies: Hx Cirrhosis, Hx Ulcer History: Denies: Hx Dialysis, Hx Renal Disease Musculoskeletal History: Reports: Hx Back Problems - back surgery x 3, Hx Orthopedic Injury, Other Musculoskeletal History - knee, hip surgery hx Denies: Hx Bursitis, Hx Congenital Bone Abnormalities, Hx Fibromyalgia, Hx Gout, Hx Osteoporosis, Hx Scoliosis, Hx Tendonitis Sensory History: Reports: Hx Contacts or Glasses Denies: Hx Cataracts, Hx Eye Injury, Hx Eye Prosthesis, Hx Glaucoma, Hx Macular Degeneration, Hx Vision Problem, Hx Deafness, Hx Hearing Aid, Hx Hearing Problem, Other Sensory Impairments Opthamlomology History: Reports: Hx Contacts or Glasses Denies: Hx Cataracts, Hx Eye Injury, Hx Eye Prosthesis, Hx Glaucoma, Hx Macular Degeneration, Hx Vision Problem, Other Sensory Impairments Neurological History: Denies: Hx Dementia, Hx Developmental Delay, Hx Headaches, Hx Migraine, Hx Seizures, Hx Spinal Cord Injury, Hx Transient Ischemic Attacks (TIA), Other Neuro Impairments/Disorders - LOC WITH FALLL Psychiatric History: Reports: Hx Anxiety Denies: Hx Attention Deficit Hyperactivity Disorder, Hx Eating Disorder, Hx Depression, Hx Panic Disorder, Hx Post Traumatic Stress Disorder, Hx Inpatient Treatment, Hx Schizophrenia, Hx Bipolar Disorder, Hx Suicide Attempt, Hx Substance Abuse, Other Psychiatric Issues/Disorders - Cancer History Cancer Type, Location and Year: skin cancer on right leg, removed Hx Chemotherapy: No Hx Radiation Therapy: No - Surgical History Surgery Procedure, Year, and Place: left shoulder surgery Jul 08 2013 csections x 3. partial hysterectomy. 3 back surgeries. right hip REPLACEMENT. LEFT KNEE RECONSTRUCTION. PACEMAKER [id number]. 3 C- SECTIONS. RIGHT SHOULDER ROTATOR CUFF REPAIR - 15 YEARS AGO. UMBILICAL HERNIA REPAIR Hx Anesthesia Reactions: Yes - PROPOFOL REACTION- THRASHING AND SCREAMING - Immunization History Date of Tetanus Vaccine: utd Date of Influenza Vaccine: utd Infectious Disease History: Reports: Hx Clostridium Difficile, Hx of Known/ Suspected MRSA Denies: Hx Hepatitis, Hx Human Immunodeficiency Virus (HIV), Hx Shingles, Hx Tuberculosis - Family History Known Family History: Positive: Cardiac Disease - CAD, Diabetes, Other - Breast CA - Social History Alcohol Use: None Hx Substance Use: No Substance Use Type: Reports: None Hx Tobacco Use: No Smoking Status (MU): Never Smoked Tobacco Have You Smoked in the Last Year: No Review of Systems Positive: Skin Diaphoresis. Negative: Fever Positive: Chest Pain Positive: Vomiting, Nausea All Other Systems Reviewed And Are Negative: Yes Physical Exam - Summary Physical Exam Summary: Appearance: obese, Well-nourished, lying in bed comfortably Skin: Warm, dry, no obvious rash Eyes: sclera anicteric, no conjunctival pallor ENT: mucous membranes moist, pharynx appears normal Neck: Supple, nontender Respiratory: Clear to auscultation, no signs of respiratory distress Cardiovascular: Normal S1, S2. No murmurs. Normal distal pulses in tibial and radial bilaterally. Abdomen: Soft, nontender, normal active bowel sounds present Musculoskeletal: Normal, Strength/ROM Intact Neurological: A&Ox3, awake and alert, mentation is normal, speech is fluent and appropriate Psychiatric: affect is normal, does not appear anxious or depressed Triage Information Reviewed: Yes Vital Signs Reviewed: Yes Diagnostics - Laboratory Result Diagrams: 05/19/18 20:53 05/19/18 20:53 Lab Statement: Any lab studies that have been ordered have been reviewed, and results considered in the medical decision making process. - Radiology CXR Radiology Interpretation Completed By: ED Physician Summary of Radiographic Findings: NO ACUTE DISEASE. PENDING OFFICIAL REPORT. - EKG 2027 Cardiac Rate: NL - 75 BPM EKG Rhythm: Sinus Rhythm - [address] Segment: Non-Specific EKG Comparison: Other - SIMILAR TO TRACKING OF 03/23/2018 Summary of EKG Findings: T-WAVE ABNORMALITIES. LVH WITH STREAM Chest Pain Course/Dx - Course Course Of Treatment: A 63 y/o female brought in by ambulance presents to the ED c/o chest pain. Currently, the patient is still experiencing chest pain reaching 7/10 in severity. As per EMS, patient had onset of chest pain about 3 hours ago sitting in a chair in the mid-sternal region. The pain is radiating to her neck and left arm reaching 7/10 in severity. Patient has a history of cardiovascular disease and DM. 324 mg of baby Aspirin and three NTG were given, however, her pain was still unrelieved as it is still at a 6/10. A 12-lead was done which revealed sinus rhythm ventricular hypertrophy. According to the patient, she was just sitting at home when the chest pain started going up her left arm and left chest. The pain started around 3-hours ago, but she didn't feel like herself all day. The pain started getting worse and worse even with taking baby Aspirin in the morning. She stated when the pain started that she was nauseated, diaphoretic, and vomited. Additionally, she felt cold at times. Physical examination findings were unremarkable. A CXR revealed no acute disease. An EKG revealed NSR of 75 BPM, LVH with stream, and T-wave abnormalities. Hematology and Chemistry screens were done. No significant laboratory abnormalities were found. Troponin I was 0.02. In the ED course, the patient received Maalox,Xylocaine, Morphine, NTG, and Zofran. Patient will be signed out to Dr. Mervin Freed via Dr. Aries Monte, pending Troponin II and disposition, upon shift change on 05/19/2018 at 2200. Patient will be signed out with a diagnosis of non-cardiac chest pain. - Diagnoses Provider Diagnoses: Chest pain Discharge - Sign-Out/Discharge Documenting (check all that apply): Sign-Out Patient - JACOBFAR Signing out patient TO: Mervin Freed Receiving patient FROM: Aries Monte - Discharge Plan Condition: Stable Disposition: ADMITTED TO [facility] - Billing Disposition and Condition Condition: STABLE Disposition: Admitted to [facility] - Attestation Statements Document Initiated by Katelyn: Yes Documenting Scribe: Librado Cuellar Provider For Whom Katelyn is Documenting (Include Credential): Aries Monte MD Scribmosies Attestation: Librado Perez scribed for Aries Monte MD on 05/22/18 at 0206. Scribe Documentation Reviewed: Yes Provider Attestation: The documentation as recorded by the Librado espino accurately reflects the service I personally performed and the decisions made by Aries howard MD Status of Scribe Document: Viewed
[2018-05-19 21:03] LABS: ABS Basophils 0 10^3/ul (0-0.2); ABS Eosinophils 0 10^3/ul (0-0.6); ABS Lymphocytes 2.4 10^3/ul (1.0-4.8); ABS Monocytes 0.7 10^3/ul (0-0.8); ABS Neutrophils 5.4 10^3/ul (1.5-7.7); ABS Nucleated RBC 0 10^3/ul; Eosinophil % 0.5 %; Hematocrit 36 % (35-47); Mean Corpuscular HGB Conc 34 g/dl (31-36); Mean Corpuscular Hemoglobin 31 pg (27-31); Mean Corpuscular Volume 91 fL (80-97); Mean Platelet Volume 8.1 fL (7.4-10.4); Nucleated Red Blood Cells % 0; Platelet Count 317 10^3/ul (150-450); Red Cell Distribution Width 15 % (10.5-15); White Blood Count 8.7 10^3/ul (3.5-10.8)
[2018-05-19 21:18] LABS: Albumin 3.8 g/dL (3.2-5.2); Albumin/Globulin Ratio 1.2 (1-3); BUN/Creatinine Ratio 21.7 (8-20); Calcium 9.1 mg/dL (8.6-10.3); EGFR Non-African American 100.3 (>60); Globulin 3.2 g/dL (2-4); Potassium 3.6 mmol/L (3.5-5.0); Total Bilirubin 0.3 mg/dL (0.2-1.0)
[2018-05-19] MEDS ORDERED: Al Hydrox/Mg Hydrox/Simet LIQ* 30 ML UDC PO ONE (21:29)
[2018-05-19] MEDS ORDERED: Lidocaine 2% VISCOUS* 15 ML UDC PO ONE (21:29)
[2018-05-19] MEDS ORDERED: LORazepam INJ* 2 MG/ML 1 ML VIAL IV PUSH ONE (23:59)
--- NOTE | 2018-05-20 | ED ---
Progress - Progress Note Progress Note: Signed-out from Dr. Monte at 2200. Patient is currently having continuing chest pains since MULTINEEDLE SHIRRER. The patient seems anxious and does not feel safe going home with the pain so she will be admitted. Juanis Batista Hospitalist accepted the admission. Patient takes daily aspirin. Course/Dx - Course Course Of Treatment: Signed-out from Dr. Monte at 2200. Patient is currently having continuing chest pains since MULTINEEDLE SHIRRER. The patient seems anxious and does not feel safe going home with the pain so she will be admitted. Juanis Batista Hospitalist accepted the admission. Patient takes daily aspirin. - Diagnoses Provider Diagnoses: Chest pain - Provider Notifications Discussed Care Of Patient With: Juanis Batista Time Discussed With Above Provider: 00:04 Instructed by Provider To: Admit As Inpatient Discharge - Sign-Out/Discharge Documenting (check all that apply): Patient Departure - Discharge Plan Condition: Stable Disposition: ADMITTED TO [facility] Referrals: Olga Cavanaugh MD [Primary Care Provider] - - Attestation Statements Document Initiated by Yessie: Yes Documenting Scribe: Dusty Collins Provider For Whom Katelyn is Documenting (Include Credential): Mervin Freed MD Scribe Attestation: Dusty Perez, scribed for Mervin Freed MD on 05/20/18 at 0005. Status of Scribe Document: Ready
[2018-05-20] MEDS ORDERED: Ondansetron INJ* 2 MG/ML VIAL IV PRN (00:30)
[2018-05-20] MEDS ORDERED: Acetaminophen TAB* 325 MG PO PRN (00:30)
[2018-05-20] MEDS ORDERED: Polyethylene Glycol 3350* 17 GM PACKET PO PRN (00:31)
[2018-05-20] MEDS ORDERED: Dextrose 50% Syringe 50 ML* 25 GM/50 ML SYRINGE IV PUSH PRN (00:34)
--- NOTE | 2018-05-20 02:55 | HP ---
CC: Dr. Cavanaugh * [facility] MEDICINE HISTORY AND PHYSICAL: DATE OF ADMISSION: 05/20/18 ATTENDING PHYSICIAN: Juanis Batista MD * (dictated provided by Jie Mcdonald NP) CHIEF COMPLAINT: Chest pain. HISTORY OF PRESENT ILLNESS: Ms. Barragan is a 63-year-old female, well known to the [facility] Medicine Service with multiple previous admissions with a history of diabetes, reported coronary artery disease, though no history of cardiac catheterization, hypertension, and hyperlipidemia, who presents to the emergency room with concern of chest pain. Ms. Barragan states that she was sitting at home today when at 3 p.m., she developed severe chest pain to left side of her chest. She feels that it is in her heart. She feels like a pressure. She feels it radiating into her neck and into her arm. She states that it is worse when she got up to walk around even in her apartment and therefore, she came to the emergency room for evaluation. She feels that with this she had some shortness of breath and diaphoresis. She feels that the pain has been waxing and waning, though never fully resolved. She continues to have "severe" pain now. She denies any other recent complaints. She has had no cough. She has had no nausea, vomiting, diarrhea, abdominal pain. She has been tolerating oral intake as well. In the emergency room, Ms. Barragan had an EKG which initially showed concern for some T-wave inversions and ST elevations; however, in comparison to previous EKG , there was no absolutely no change from previous. She had a chest x-ray, which was read by myself to show no acute intrathoracic process, though full radiologic report is pending. The remainder of her labs are unremarkable. Her vitals are stable. She had two troponins, both of which were 0.02. In referring to the previous medical record, I note that the patient had a stress test in November, which was read as positive, but upon further review by Dr. Alex from the cardiology team, he felt that this did not reflect acute coronary syndrome or active cardiac disease. PAST MEDICAL HISTORY: 1. Type 2 diabetes, [id number]. 2. Reported coronary artery disease, though no history of cardiac catheterization. 3. Obesity. 4. Hypertension. 5. Hyperlipidemia. 6. History of pacemaker. 7. History of chronic pain. 8. Anxiety. MEDICATIONS: Medications today are: 1. Oxycodone 15 mg p.o. q.4 hours p.r.n. 2. Metformin 1000 mg p.o. in the morning and 500 mg at night. 3. Ambien 10 mg p.o. at bedtime p.r.n. 4. Simvastatin 40 mg p.o. at bedtime. 5. Senna 2 tabs p.o. at bedtime. 6. Polyethylene glycol 17 g p.o. daily p.r.n. 7. Pantoprazole 40 mg p.o. daily. 8. Multivitamin with mineral 1 tab p.o. daily. 9. Levothyroxine 75 mcg p.o. daily. 10. Lorazepam 1 mg p.o. q.i.d. p.r.n. 11. Irbesartan 150 mg p.o. daily. 12. Furosemide 40 mg p.o. daily. 13. Diltiazem CD 240 mg p.o. daily. 14. Cholecalciferol 2000 units p.o. daily. 15. Aspirin 81 mg p.o. daily. 16. Tylenol 650 mg p.o. q.6 hours p.r.n. ALLERGIES: CEFAZOLIN, CITALOPRAM, NAPROXEN, NSAIDS, PENICILLIN, PROPOFOL, SULFA, ZALEPLON (SONATA). FAMILY HISTORY: The patient reports her father had coronary artery disease as did her brother who had an [place] in his 50s. SOCIAL HISTORY: No prior alcohol, tobacco, or drug use. She states her mother , Juhi Daugherty, is her healthcare proxy. REVIEW OF SYSTEMS: A 14-point review of systems was completed with Ms. Barragan and all those not mentioned above were negative. PHYSICAL EXAMINATION GENERAL: Ms. Barragan is sitting up in the bed. She is in no acute distress. VITAL SIGNS: Temperature 98.5, pulse rate 78, respiratory rate 9, O2 saturation 95% on room air, blood pressure 118/71. LUNGS: Clear to auscultation bilaterally with no accessory muscle use and good aeration. HEART: S1, S2. No murmur, rub, or gallop, and regular. ABDOMEN: Soft, nontender with bowel sounds positive x4. EXTREMITIES: No cyanosis or edema. NEURO: She is alert, she is oriented x3. She moves all extremities equally. There is no facial asymmetry or focal weakness. Extraocular movements are intact. SKIN: Intact. LAB DATA/DIAGNOSTIC STUDIES: Sodium 139, potassium 3.6, chloride 100, serum bicarbonate 31, BUN 13, creatinine 0.60, glucose 145. Troponin 0.02, followed by another troponin of 0.02. WBC 8.7, hemoglobin 12.9, hematocrit 36, platelets count 317. Again, chest x-ray is read as per above. The EKG again shows T-wave inversions in V4 through V6 and appears to show an ST elevation in V2 and V3, but this is no change from previous EKG. ASSESSMENT: Ms. Barragan is a 63-year-old female with a past medical history of diabetes, reported coronary artery disease, and no reported cardiac catheterization, hypertension, hyperlipidemia, and a positive family history, who presents today to the hospital with concern for chest pain. Our plans are for observation in the hospital for the following. 1. Chest pain: Thus far, the patient's work is negative; however, she does have multiple risk factors and desires observation in the hospital overnight. We will repeat a third troponin. If the troponin is negative, we will likely not order stress testing during this hospitalization as she did just have a stress test in November. However, if she has continued pain without clear explanation, it may be necessary to move onto stress testing. I do plan to make the patient n.p.o. until further evaluation can be made in the a.m. She will have aspirin daily. We will continue her other home medications. 2. Hypertension: Continue home medications. 3. Type 2 diabetes: Hold metformin and she will have blood glucoses q.a.c. with Lispro sliding scale. 4. Anxiety: Plan to continue her home medications. 5. Chronic pain: Continue home medications. 6. DVT prophylaxis: Heparin subcu. 7. Code status: Full code. TIME SPENT: Approximately 60 minutes were spent in the admission of this patient, more than half the time spent with the patient at the bedside reviewing the events leading up to this hospitalization, performing the physical examination, and reviewing my plan of care. JIE MCDONALD NP [id number]/[facility] #: [id number] KARRI
[2018-05-20] MEDS: Zolpidem TAB* 10 MG PO PRN ×2 (03:15→22:05)
[2018-05-20] MEDS: oxyCODONE TAB* 5 MG TAB PO PRN ×5 (04:20→22:05)
[2018-05-20] MEDS: Heparin VIAL(*) 5000 UNITS/ML VIAL (FIVE THOUSAND) SUBCUT SCH ×3 (05:03→22:05)
[2018-05-20] MEDS: Levothyroxine TAB* 75 MCG TAB PO SCH (05:05)
[2018-05-20] MEDS ORDERED: Morphine VIAL* 4 MG/ML VIAL (1 ml vial) IV ONE (07:23)
[2018-05-20] MEDS: Insulin LISPRO* 1 UNITS UNIT SUBCUT SCH ×3 (08:27→17:49)
[2018-05-20] MEDS: Prenatal Vitamin TAB PO SCH (09:32)
[2018-05-20] MEDS: Senna TAB PO SCH ×2 (09:32→22:05)
[2018-05-20] MEDS: Diltiazem CD CAP* 240 MG PO SCH (09:32)
[2018-05-20] MEDS: Furosemide TAB* 40 MG PO SCH (09:32)
[2018-05-20] MEDS: Losartan TAB* 25 MG PO SCH (09:32)
[2018-05-20] MEDS: Aspirin 81 mg CHEW TAB* 81 MG TAB.CHEW PO SCH (09:33)
[2018-05-20] MEDS: LORazepam TAB(*) 1 MG PO PRN ×2 (09:37→17:50)
[2018-05-20] MEDS ORDERED: Regadenoson* 0.4 MG/5 ML SYRINGE ONE (11:42)
--- NOTE | 2018-05-20 18:12 | DCNOTE ---
Subjective Date of Service: 05/20/18 Interval History: This is a 63 year old female that presents with left sided chest pain, has had multiple hospitalizations for the same with negative cardiac work up. Patient had 2 negative troponins in ER and negative stress test in November but requested admission because she didn't feel safe going home. Objective Active Medications: Acetaminophen (Tylenol Tab*) 650 mg PO Q6H PRN PRN Reason: PAIN Last Admin: 05/20/18 03:15 Dose: 650 mg Aspirin (Aspirin 81 Mg Chew Tab*) 81 mg PO DAILY [facility] Last Admin: 05/20/18 09:33 Dose: 81 mg Atorvastatin Calcium (Lipitor*) 20 mg PO BEDTIME [facility] Dextrose (D50w Syringe 50 Ml*) 12.5 gm IV PUSH .FOR FS < 60 - SS PRN PRN Reason: FS < 60 Diltiazem HCl (Cardizem Cd Cap*) 240 mg PO DAILY [facility] Last Admin: 05/20/18 09:32 Dose: 240 mg Furosemide (Lasix Tab*) 40 mg PO DAILY [facility] Last Admin: 05/20/18 09:32 Dose: 40 mg Heparin Sodium (Porcine) (Heparin Vial(*)) 5,000 units SUBCUT Q8HR [facility] Last Admin: 05/20/18 14:04 Dose: Not Given Insulin Human Lispro (Humalog*) 0 units SUBCUT AC [facility]; Protocol Last Admin: 05/20/18 17:49 Dose: 3 units Levothyroxine Sodium (Synthroid Tab*) 75 mcg PO DAILY@0600 [facility] Last Admin: 05/20/18 05:05 Dose: 75 mcg Lorazepam (Ativan Tab(*)) 1 mg PO QID PRN PRN Reason: ANXIETY Last Admin: 05/20/18 17:50 Dose: 1 mg Losartan Potassium (Cozaar Tab*) 50 mg PO DAILY [facility] Last Admin: 05/20/18 09:32 Dose: 50 mg Multivitamins ( Vitamin Tab*) 1 tab PO DAILY [facility] Last Admin: 05/20/18 09:32 Dose: 1 tab Ondansetron HCl (Zofran Inj*) 4 mg IV Q6H PRN PRN Reason: NAUSEA Oxycodone HCl (Roxycodone Tab*) 15 mg PO Q4H PRN PRN Reason: PAIN Last Admin: 05/20/18 17:49 Dose: 15 mg Polyethylene Glycol/Electrolytes (Miralax*) 17 gm PO DAILY PRN PRN Reason: CONSTIPATION Senna (Senokot Tab*) 2 tab PO BID MIGUEL Last Admin: 05/20/18 09:32 Dose: 2 tab Zolpidem Tartrate (Ambien Tab*) 10 mg PO BEDTIME PRN PRN Reason: SLEEP Last Admin: 05/20/18 03:15 Dose: 10 mg Vital Signs - 8 hr 05/20/18 05/20/18 05/20/18 11:01 12:39 14:03 Temperature 98.3 F Pulse Rate Respiratory 16 18 16 Rate Blood Pressure 134/70 (mmHg) O2 Sat by Pulse 95 Oximetry 05/20/18 05/20/18 05/20/18 16:07 17:22 17:49 Temperature 96.7 F Pulse Rate 65 Respiratory 18 16 16 Rate Blood Pressure 118/51 (mmHg) O2 Sat by Pulse 99 Oximetry 05/20/18 17:50 Temperature Pulse Rate Respiratory 16 Rate Blood Pressure (mmHg) O2 Sat by Pulse Oximetry Oxygen Devices in Use Now: None Appearance: alert, NAD Eyes: No Scleral Icterus, PERRLA Ears/Nose/Mouth/Throat: NL Teeth, Lips, Gums, Mucous Membranes Moist Neck: Trachea Midline Respiratory: Symmetrical Chest Expansion and Respiratory Effort, Clear to Auscultation Cardiovascular: RRR, No Edema Abdominal: NL Sounds; No Tenderness; No Distention Extremities: No Edema, No Clubbing, Cyanosis Skin: No Rash or Ulcers Neurological: Alert and Oriented x 3 Nutrition: Taking PO's Result Diagrams: 05/19/18 20:53 05/19/18 20:53 Diagnostic Imaging: Patient Name: AISHWARYA BARRAGAN Medical Record#: [id number] Ordering Physician: Felipe Loredo MD Acct.#: [id number] : 1955 Age: 63 Sex: F Location: [address] [place] [address]/TELEMETRY Exam Date: 05/20/18 ADM Status: ADM Kalani Order Information: NM MYOCARDIAL MULTI RESTING Accession Number: [id number] CPT: 39401 HISTORY: CHEST PAIN COMPARISONS: None TECHNIQUE: A 1 day stress/rest myocardial perfusion study was performed, with pharmacologic stress. The stress portion was monitored by Dr. Ca. Gated SPECT imaging was performed, without CT-based attenuation correction secondary to patient physical limitation. DOSE: Stress: Technetium 99m tetrofosmin, 25.08 millicuries, injected at 12:09 PM on May 20, 2018 Rest: Technetium 99m tetrofosmin, 10.8 millicuries, injected at 10:00 AM on May 20, 2018 Pharmacologic agent: Lexiscan FINDINGS: CARDIAC MONITORING: Nondiagnostic secondary to resting EKG abnormalities EF: 61 % TID: 1.22 MOTION: Normal motion, with normal wall thickening. PERFUSION: There is a moderate-sized partially reversible defect of the anterior wall distally suggestive of an area of mixed ischemia and previous infarct. 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 ASSESSMENT: INTERMEDIATE RISK. Based on imaging criteria from ACC/AHA 2002. Guideline Update for the Management of Patient's with Chronic Stable Angina, table 23. Noninvasive Risk Stratification. <Electronically signed by Jeremiah Estrella MD in [place]> 05/20/181317 Dictated By: Jeremiah Estrella MD Dictated Date/Time: 05/20/181317 Transcribed Date/Time: 05/20/181315 Copy to: This report is only to be considered final once signed by the Provider(s) as displayed in the "<Electronically Signed by >" field (s). Absence of a signature indicates the report is in a draft status and still needs to be finalized. In the event this document was created by someone other than the signing Provider, the individual initiating the document will be listed in the "Entered by:" or "Dictated by:" velasco. 1 of 2 Assess/Plan/Problems-Billing Assessment: Ms. Barragan is a 63 year old female with multiple admissions for complaints of reproducible chest pain, subjective fever, all over body pain, and nausea. - Patient Problems (1) Anxiety Code(s): F41.9 - ANXIETY DISORDER, UNSPECIFIED SNOMED Code(s): 32546162 Comment: - Continue Lorazepam. (2) Chest pain Code(s): R07.9 - CHEST PAIN, UNSPECIFIED SNOMED Code(s): 89002624 Comment: - troponin negative x2 and ekg with no changes from previous - Lexiscan with intermediate risk as above; however last stress in November was interpreted as positive but upon re-evaluation was not. - Patient's pain is very atypical and changes with position and movement and is reproducible with palpation (3) Chronic pain Code(s): G89.29 - OTHER CHRONIC PAIN SNOMED Code(s): 19058304 Comment: - Continue home dose of oxycodone and discontinue morphine (4) Diabetes Code(s): E11.9 - TYPE 2 DIABETES MELLITUS WITHOUT COMPLICATIONS SNOMED Code(s) : 41888430 Comment: - c/w SS lispro and metformin, well controlled (5) Full code status Code(s): Z78.9 - OTHER SPECIFIED HEALTH STATUS SNOMED Code(s): 322266509 Status and Disposition: Discharge in AM after PT evaluation. Per case management and as stated to myself , patient requests not to be discharged because its "so late" and she "doesn't feel safe going home". Explained to patient that she should follow up with cardiology as an outpatient to determine if further cardiac workup would be beneficial. can remain in obs until tomorrow morning.
[2018-05-20] MEDS ORDERED: Atorvastatin* 20 MG TAB PO SCH (21:00)
[2018-05-21] MEDS: oxyCODONE TAB* 5 MG TAB PO PRN ×3 (02:22→11:30)
[2018-05-21] MEDS: LORazepam TAB(*) 1 MG PO PRN ×2 (05:22→11:32)
[2018-05-21] MEDS: Heparin VIAL(*) 5000 UNITS/ML VIAL (FIVE THOUSAND) SUBCUT SCH (05:23)
[2018-05-21] MEDS: Levothyroxine TAB* 75 MCG TAB PO SCH (05:23)
[2018-05-21] MEDS: Insulin LISPRO* 1 UNITS UNIT SUBCUT SCH ×2 (09:26→12:29)
[2018-05-21] MEDS: Prenatal Vitamin TAB PO SCH (09:32)
[2018-05-21] MEDS: Losartan TAB* 25 MG PO SCH (09:33)
[2018-05-21] MEDS: Aspirin 81 mg CHEW TAB* 81 MG TAB.CHEW PO SCH (09:33)
[2018-05-21] MEDS: Diltiazem CD CAP* 240 MG PO SCH (09:33)
[2018-05-21] MEDS: Furosemide TAB* 40 MG PO SCH (09:34)
[2018-05-21] MEDS: Senna TAB PO SCH (09:34)
--- NOTE | 2018-05-21 11:18 | DS ---
CC: Dr. Escobar* DISCHARGE SUMMARY: DATE OF ADMISSION: 05/20/18 DATE OF DISCHARGE: 05/21/18 PRIMARY CARE PROVIDER: Olga Cavanaugh MD PRIMARY WEB PRODUCTION ARTIST: Abelino Hdez DO ATTENDING FOR THIS ADMISSION: Kia Newberry MD ATTENDING PHYSICIAN FOR TODAY: Junior Escobar MD* (dictated by Abiodun Vang NP). HOSPITAL COURSE: Please refer to admitting H and P by Dr. Batista on 05/20/18; however, in short, the patient has had multiple admissions over the past several months for complaint of left-sided chest wall pain. She has had a persistently negative cardiac workup, although she does report she did have some coronary artery disease in the past. The patient had a negative troponin x2. The patient also had a stress test which showed intermediate risk. The patient states that her chest pain is reproducible in nature, changes with movement, changes with deeper inspiration and also with palpation. Also of significant note, the patient had a stress test back in November which was also deemed negative. The patient was optimized for discharge; however, she was complaining of some general weakness. She had an evaluation with Physical Therapy who stated the patient has some endurance issues and would benefit from short-term rehab. The patient has been accepted at [facility] for rehabilitation purposes. DISCHARGE DIAGNOSES: 1. Left-sided chest wall pain. 2. History of hypertension. 3. Diabetes type 2, well controlled. 4. Anxiety. 5. History of chronic pain. DISCHARGE MEDICATIONS: Include, 1. Tylenol 650 mg q.6 hours as needed. 2. Aspirin 81 mg daily. 3. Lipitor 20 mg in the evening. 4. Diltiazem CD cap 240 mg p.o. daily. 5. Lasix 40 mg p.o. daily. 6. Cholecalciferol 2000 units p.o. daily. 7. Lasix 40 mg p.o. daily. 8. Avapro 150 mg p.o. daily. 9. Levothyroxine 75 mcg daily. 10. Metformin 500 mg in the evening and 1000 mg in the morning. 11. Multivitamin 1 tablet daily. 12. Protonix 40 mg daily. 13. MiraLAX 17 g p.o. daily as needed. 14. Senokot 2 tablets p.o. b.i.d. 15. Ambien 10 mg p.o. at bedtime. 16. Oxycodone 15 mg p.o. q.4 hours as needed for pain. Please note there are no changes to her medications. REVIEW OF SYSTEMS: On the day of discharge, the patient is complaining of weakness, chest wall pain. No nausea, no vomiting, no shortness of breath. Persistent arthralgias and myalgias, but no further constitutional complaints. PHYSICAL EXAMINATION: Physical exam today reveals a well-appearing 63-year-old female, in no acute distress. Vital signs are blood pressure 108/71, heart rate 68, O2 saturation 98% on room air, pulse of 63, temperature 97.6. HEENT: The patient is atraumatic, normocephalic. PERRLA, with anicteric sclerae. Oral mucosa is moist. Tongue is midline. Neck is supple, nontender. No JVD noted. No carotid bruits auscultated. Cardiovascular: S1 and S2 present. No murmurs, gallops, or rubs noted. Rate and rhythm are regular. Lungs are clear bilaterally to auscultation with no wheezing, rhonchi, or rales. Left chest wall is tender to palpation above the breast and into the left rib cage. Abdomen is soft, nontender, nondistended. Positive bowel sounds in all 4 quadrants. is deferred. Musculoskeletal: There is no clubbing, no cyanosis , and no edema. She has generalized pain to the lower extremities upon palpation. This is her baseline. Neurologic: She is grossly intact with no focal deficits. Psychiatric: She is tearful at times but appropriate. DIAGNOSTIC STUDIES/LAB DATA: WBC is 8.7, RBC is 3.90, hemoglobin 12.0, hematocrit 36, platelets 317. Sodium 139, potassium 3.6, chloride 100, CO2 31 , BUN 13, creatinine 0.60, GFR is 100.3, glucose is ranging between 102 and 155 , calcium 9.1, bilirubin 0.30, AST 20, ALT 22, alk phos 111. Troponins were negative at 0.02 x3, protein 7.0, albumin 3.8, globulin 3.2. Imaging: Chest x-ray dated 05/19/18 showed some preexisting cardiomegaly which is unchanged and no evidence of any acute findings. Stress test nuclear scan reveals intermediate risk with a partial reversible defect of the distal anterior wall. DISPOSITION: The patient will be discharged to [facility] for short-term rehab. DIET: Diabetic, heart healthy as tolerated. ACTIVITY: With rolling walker as tolerated. No restrictions. FOLLOWUP: The patient was instructed to follow up with her primary care provider after she is released from rehab and with her sedimentationist on an as needed basis if she would require any further cardiac testing for her intermediate risk stress test. The patient was discharged via wheelchair swim coach in stable condition. All questions were answered. The patient stated her understanding of her disposition and discharge instructions. ABIODUN VANG NP [id number]/[facility] #: [id number] KARRI
[2018-05-21 12:03] VITALS: BP 141/63
== END 2018-05-21 12:50 ==
LOC: ED 20:26 → MEDTELE 05-20 00:25
PROVIDERS: ADMIT Internal Medicine; ATTEND Internal Medicine
DX: R07.89 Other chest pain (principal); I10 Essential (primary) hypertension; E11.9 Type 2 diabetes mellitus without complications; F41.9 Anxiety disorder, unspecified; G89.29 Other chronic pain; Z79.82 Long term (current) use of aspirin; E66.9 Obesity, unspecified; E78.5 Hyperlipidemia, unspecified; Z95.0 Presence of cardiac pacemaker; Z88.2 Allergy status to sulfonamides; Z88.0 Allergy status to penicillin; Z85.828 Personal history of other malignant neoplasm of skin
CPT/HCPCS: 36415; 71045; 78452; 80053; 84484; 85025; 93005; 93017; 96372; 96374; 96375; 99284; A9270-GY; A9502; G0378; G8978-GP-CJ; G8979-GP-CI; J1644; J2060; J2270; J2405; J2785

== ENCOUNTER 2018-06-11 19:29 | Inpatient (IN) | payer MEDICARE, MEDICAID ==
--- OUTSIDE RECORDS SUMMARY | 2018-06-11 19:51 | XMS REPORT | Continuity of Care Document ---
:1955 External Reference #:[id number] Author Name Nataliya Figueroa Care Team Providers Name Role Phone Olga Cavanaugh MD Primary Care Physician Unavailable Payers Type Date Identification Numbers Payment Provider Subscriber Effective: 1991 Policy Number: [id number] Medicare Miriam Barragan PayID: [id number] [address] [place] [address] Policy Number: [id number] Medicaid Miriam Barragan PayID: [id number] [address] [place] [address] Advance Directives Description No Information Available Problems Date Description Provider Status Onset: 03/14/2016 Essential hypertension Abelino Hdez, [facility] Active Onset: 12/14/2017 Chest pain Bebeto Barroso II, M.D. Active Onset: 12/14/2017 Hyperlipidemia Bebeto Barroso II, M.D. Active Onset: 12/14/2017 Type 2 diabetes mellitus Bebeto Barroso II, M.D. Active Onset: 12/15/2017 Heart failure, unspecified Deisy Summers M.D. Active Onset: 12/16/2017 Hypothyroidism Deisy Summers M.D. Active Onset: 12/17/2017 Arthralgia of the pelvic region Noemy Robertson D.O. Active and thigh Onset: 12/17/2017 Body mass index 40+ - severely Noemy Robertson D.O. Active obese Onset: 02/28/2018 Low back pain Kris Butler M.D.,FACP Active Onset: 02/28/2018 Fall Kris Butler M.D.,FACP Active Onset: 03/02/2018 Morbid obesity Dusty Brooke M.D. Active Onset: 03/02/2018 Cardiac pacemaker in situ Dusty Brooke M.D. Active Onset: 03/02/2018 Pain, unspecified Dusty Brooke M.D. Active Family History Date Family Member(s) Problem(s) Comments General heart disease General diabetes General Kidney Disease Father due to Emphysema () Father due to [place] () - x2 age 50 yr,age 63 yrs Social History Type Date Description Comments Sex Unknown Lives With Alone Occupation Retired ETOH Use Denies alcohol use Tobacco Use Start: Unknown Patient has never smoked Recreational Drug Use Denies Drug Use Smoking Status Reviewed: 01/05/18 Patient has never smoked Exercise Type/Frequency Does not exercise Allergies, Adverse Reactions, Alerts Date Description Reaction Status Severity Comments 06/23/2006 PCN Active rash , rapid HR 06/22/2013 Anaprox Active 06/22/2013 Ancef Active 06/22/2013 Lopressor Active 06/22/2013 Morphine Active 03/14/2016 Cipro Active 03/14/2016 Sulfa Antibiotics Active 03/14/2016 NSAIDs OTC Active Medications Medication Date Status Form Strength Qnty [...] at bed time for anxiety Daily Multiple / Active Tablets 1 daily Unknown Vitamins 0000 Metformin HCL 00/ Active Tablets 1000mg 1 by mouth Unknown 0000 once a day in Am Metformin HCL 00/ Active Tablets 500mg 1 by mouth Unknown [...] 6 M.D. 2014 hours as needed pain [place] 06/22/ Hx Tablets 5-325mg 60tab 1-2 tab po Suresh 2013 - s q4h prn Pepe, 08/30/ pain Rodrick 2013 [place] 08/11/ Hx Tablets 5-325mg 40tab 1-2 po q4h Rex Harden 2011 - s prn pain Liz, 06/22/ M.Jhoan 2013 Levothyroxine 06/23/ Hx Tablets 100mcg 1 PO qd Anthony 2006 - S. 09/08/ Shahana Monreal M.D. Aspirin 06/23/ Hx Chewtabs 81mg 1 PO qd [facility] [place] Ambien 06/23/ Hx Tablets 10mg 30tab One QHS prn Qutaybeh 2006 - s Sleep S. 10/07/ [facility] 2013 Rodrick Ibuprofen 06/23/ Hx Tablets 800mg 1 PO tid Qutaybeh 2006 - prn S. 06/22/ [facility] 2013 [place] Dilaudid 06/23/ Hx Tablets 2mg 4-6 qhrs Qutaybeh 2006 - prn S. 06/22/ [facility] 2013 Rodrick Pravastatin / Hx Unknown Sodium - 2014 Avapro / Hx 40mg as directed Unknown 0000 - 2015 Aspirin Low Dose / Hx Chewtabs 81mg 1 by mouth Unknown 0000 - every day 2015 Immunizations Description No Information Available Vital Signs Date Vital Result Comment 01/05/2018 2:01pm Height 64 inches 5'4" Weight 250.00 lb BP Systolic 117 mmHg BP Diastolic 78 mmHg Respiratory Rate 15 /min Pain Level 7 BMI (Body Mass Index) 42.9 kg/m2 03/14/2016 2:42pm Height 64 inches 5'4" Weight 270.00 lb [...] Ejection Fraction 55-60% date 07/07/15 ECHO 10/27/2014 11:15am Height 64 inches 5'4" Weight 173.00 lb Heart Rate 67 /min BP Systolic 160 mmHg BP Diastolic 80 mmHg BMI (Body Mass Index) 29.7 kg/m2 10/22/2013 1:47pm Height 64 inches 5'4" Weight 163.00 lb Heart Rate 104 /min BMI (Body Mass Index) 28.0 kg/m2 10/08/2013 11:11am Height 64 inches 5'4" Weight 163.00 lb Heart Rate 72 /min BMI (Body Mass Index) 28.0 kg/m2 08/31/2013 2:13pm Height 64 inches 5'4" Heart Rate 89 /min BP Systolic 153 mmHg BP Diastolic 82 mmHg 06/22/2013 8:15am Height 64 inches 5'4" Weight 263.00 lb Heart Rate 88 /min BP Systolic 154 mmHg BP Diastolic 92 mmHg BMI (Body Mass Index) 45.1 kg/m2 06/23/2006 10:37am Height 64 inches 5'4" Weight 203.00 lb Heart Rate 84 /min BP Systolic Sitting 138 mmHg BP Diastolic Sitting 88 mmHg BP Systolic Standing 130 mmHg BP Diastolic Standing 80 mmHg Respiratory Rate 16 /min BMI (Body Mass Index) 34.8 kg/m2 Results Test Date Facility Test Result H/L Range Note Laboratory test 10/14/2013 [facility] C Reactive 14.56 mg/L High < 5.[address] [place] [address] [phone] CBC Auto Diff 10/14/2013 [facility] White Blood 7.2 10^3/uL N 4.8-10.[address] [place] [address] [phone] Red Blood Count 3.98 10^6/uL Low 4.0-5.4 Hemoglobin 12.0 g/dL N 12.0-16.0 Hematocrit 36 % N 35-47 Mean Corpuscular Volume 90 fL N 80-97 Mean Corpuscular Hemoglobin 30 pg N 27-31 Mean Corpuscular HGB Conc 33 g/dL N 31-36 Red Cell Distribution Width 16 % High 10.5-15 Platelet Count 300 10^3/uL N 150-450 Mean Platelet Volume 8 um3 N 7.4-10.4 Abs Neutrophils 4.5 10^3/uL N 1.5-7.7 Abs Lymphocytes 2.0 10^3/uL N 1.0-4.8 Abs Monocytes 0.6 10^3/uL N 0-0.8 Abs Eosinophils 0.1 10^3/uL N 0-0.6 Abs Basophils 0 10^3/uL N 0-0.2 Abs Nucleated RBC 0.01 10^3/uL N Granulocyte % 61.9 % N 38-83 Lymphocyte % 28.3 % N 25-47 Monocyte % 7.7 % N 1-9 Eosinophil % 1.9 % N 0-6 Basophil % 0.2 % N 0-2 Nucleated Red Blood Cells % 0.1 N Laboratory test 10/14/2013 [facility] Erythrocyte Sed 60 mm/Hr High 0-[address] [place] [address] [phone] 1 Acute inflammation: >10.00 Procedures Date Code Description Status 03/02/2018 02501 EKG, Interpretation Only Completed 12/15/2017 68919 ECHO Transthorasic Realtime 2D W Doppler & Color Flow Hosp Completed 12/15/2017 16420 Treadmill Interp/Report Only Completed 12/15/2017 54588 Stress Test Supervsn W/Out I/R Completed 04/24/2017 59922 ECHO Transthorasic Realtime 2D W Doppler & Color Flow Hosp Completed 04/24/2017 09464 Interrogation Device Eval In Person W/DR Completed Analysis,Single,Dual,Mul 04/24/2017 09382 EKG, Interpretation Only Completed 04/23/2017 72379 Interrogation Device Eval In Person W/DR Completed Analysis,Single,Dual,Mul 02/18/2017 52735 EKG, Interpretation Only Completed 02/12/2017 05951 ECHO Transthorasic Realtime 2D W Doppler & Color Flow Hosp Completed 10/03/2016 52670 Treadmill Interp/Report Only Completed 10/03/2016 74768 Stress Test Supervsn W/Out I/R Completed 03/14/2016 66887 EKG Tracing & Interpretation Completed 07/07/2015 86733 ECHO Transthorasic Realtime 2D W Doppler & Color Flow Hosp Completed 09/30/2013 25138 Treadmill Interp/Report Only Completed 09/30/2013 08679 Stress Test Supervsn W/Out I/R Completed 07/07/2013 72165 Arthroscopy Shoulder,W/Rotator Cuff Repair Completed 07/07/2013 45798 Arthroscopy Shoulder,W/Rotator Cuff Repair Completed 03/12/2012 57148 EEG Recording Awake & Drowsy Completed 06/27/2006 09397 Stress ECHO Interpretation/Report Hospital Completed 06/27/2006 48747 Stress ECHO Interpretation/Report Hospital Completed 06/27/2006 44068 Treadmill Interp/Report Only Completed 06/27/2006 60361 Stress Test Supervsn W/Out I/R Completed 06/23/2006 11225 EKG Tracing & Interpretation Completed 06/23/2006 83325 Echocardiogram Completed 06/23/2006 61305 Echocardiogram Completed 06/23/2006 70922 Pulse Doppler & Continuous Wave Completed 06/23/2006 14310 Color Doppler Completed 06/23/2006 18187 Color Doppler Completed 07/11/2005 87113 Color Doppler Completed 07/11/2005 29054 Pulse Doppler & Continuous Wave Completed 07/11/2005 86252 Echocardiogram Completed 08/08/2004 09175 Selective Coronary Angiography Completed 08/08/2004 63863 S/I/R Inj Proc Vent &/Or Atrial Completed 08/08/2004 55214 Coronary Angiography Completed 08/08/2004 38100 Inj Proc LFT Vent/LFT Atrl Angio Completed 08/08/2004 08373 Left Heart Catheterization Completed Encounters Type Date Location Provider Dx Diagnosis Office Visit 03/24/2018 [facility] Vanessa [facility] R07.89 Other chest pain 10:16a Assoc,jasmin Borden NP Hospitalists E11.9 Type 2 diabetes mellitus without complications I10 Essential (primary) hypertension E78.5 Hyperlipidemia, unspecified Office Visit 03/23/2018 10:15a [facility] Rossy Tiradoima, R07.89 Other chest Assjsamin lombardi M.D. pain Hospitalists E11.9 Type 2 diabetes mellitus without complications I10 Essential (primary) hypertension E78.5 Hyperlipidemia, unspecified E66.01 Morbid (severe) obesity due to excess calories Z68.41 Body mass index (BMI) 40.0-44.9, adult Office Visit 03/02/2018 [facility] Dusty E11.9 Type 2 diabetes 10:02a jasmin Leal M.D. mellitus without Hospitalists complications E78.5 Hyperlipidemia, unspecified I10 Essential (primary) hypertension E03.9 Hypothyroidism, unspecified E66.01 Morbid (severe) obesity due to excess calories Z95.0 Presence of cardiac pacemaker R52 Pain, unspecified Office Visit 03/01/2018 10:02a [facility] Dusty R52 Pain, unspecified Assjasmin lombardi M.D. Hospitalists I50.30 Unspecified diastolic (congestive) heart failure I11.0 Hypertensive heart disease with heart failure Z79.4 custodial (current) use of insulin E11.9 Type 2 diabetes mellitus without complications E03.9 Hypothyroidism, unspecified Office Visit 02/28/2018 10:02a [facility] Kris Staples M25.551 Pain in Assoc,jasmin Butler M.D.,FACP right hip Hospitalists M54.5 Low back pain E11.9 Type 2 diabetes mellitus without complications I10 Essential (primary) hypertension W19.xxxA Unspecified fall, initial encounter Office Visit 02/17/2018 9:15a [facility] Sallie E11.9 Type 2 diabetes MD Miriam mellitus without complications I10 Essential (primary) hypertension E03.9 Hypothyroidism, unspecified F41.9 Anxiety disorder, unspecified Z74.1 Need for assistance with personal care R26.2 Difficulty in walking, not elsewhere classified Office Visit 01/23/2018 8:30a [facility] Sallie F41.9 Anxiety disorder, MD Miriam unspecified Z74.1 Need for assistance with personal care E11.9 Type 2 diabetes mellitus without complications E66.9 Obesity, unspecified I10 Essential (primary) hypertension E03.9 Hypothyroidism, unspecified E78.5 Hyperlipidemia, unspecified Z68.42 Body mass index (BMI) 45.0-49.9, adult Office Visit 01/20/2018 12:57p [facility] Suzy Z74.1 Need for Assoc,jasmin Bryant, [employer] assistance with Hospitalists personal care F41.9 Anxiety disorder, unspecified E11.9 Type 2 diabetes mellitus without complications I25.10 [place] heart disease of [place] coronary artery w/o ang pctrs I10 Essential (primary) hypertension E78.5 Hyperlipidemia, unspecified E03.9 Hypothyroidism, unspecified E66.01 Morbid (severe) obesity due to excess calories Z68.41 Body mass index (BMI) 40.0-44.9, adult Office Visit 01/19/2018 12:56p [facility] Rossy F41.9 Anxiety disorder, Assoc,jasmin Bay M.D. unspecified Hospitalists E11.9 Type 2 diabetes mellitus without complications Z86.79 Personal history of other diseases of the circulatory system I10 Essential (primary) hypertension E78.5 Hyperlipidemia, unspecified E03.9 Hypothyroidism, unspecified E66.01 Morbid (severe) obesity due to excess calories Office Visit 01/05/2018 2:00p [facility] Linda Kin, M25.551 Pain in right Of C.M.A. M.D. hip Z96.641 Presence of right artificial hip joint W19.xxxA Unspecified fall, initial encounter Office Visit 12/19/2017 11:40a [facility] Noemy R07.9 Chest pain, Assoc,jasmin Robertson DDoug unspecified Hospitalists I50.30 Unspecified diastolic (congestive) heart failure M25.551 Pain in right hip E11.65 Type 2 diabetes mellitus with hyperglycemia Office Visit 12/18/2017 11:40a [facility] Noemy M25.551 Pain in Assoc,jasmin Robertson D.O. right hip Hospitalists E11.9 Type 2 diabetes mellitus without complications I50.9 Heart failure, unspecified I10 Essential (primary) hypertension Office Visit 12/17/2017 11:40a [facility] Noemy I50.9 Heart failure, Assoc,jasmin Robertson, D.O. unspecified Hospitalists E11.9 Type 2 diabetes mellitus without complications M25.551 Pain in right hip Z68.42 Body mass index (BMI) 45.0-49.9, adult Office Visit 12/16/2017 [facility] Deisy Kristopher, I50.9 Heart failure , 11:39a jasmin Leal M.D. unspecified Hospitalists I10 Essential (primary) hypertension E11.9 Type 2 diabetes mellitus without complications E03.9 Hypothyroidism, unspecified Office Visit 12/16/2017 [facility] Bruce Staples R07.9 Chest pain, 11:57a Of Mere Alex M.D. unspecified Office Visit 12/15/2017 [facility] Deisy Kristopher, R07.9 Chest pain, 11:39a jasmin Leal M.D. unspecified Hospitalists I10 Essential (primary) hypertension I50.9 Heart failure, unspecified E11.9 Type 2 diabetes mellitus without complications Office Visit 12/14/2017 [facility] Bebeto Barroso R07.9 Chest pain, 11:38a Assjasmin lombardi II, M.D. unspecified Hospitalists I10 Essential (primary) hypertension E78.5 Hyperlipidemia, unspecified E11.9 Type 2 diabetes mellitus without complications Office Visit 04/30/2017 9:18a [facility] Rossy Bay, R55 Syncope and Assjasmin lombardi M.D. collapse Hospitalists R07.9 Chest pain, unspecified I10 Essential (primary) hypertension E11.8 Type 2 diabetes mellitus with unspecified complications Office Visit 04/29/2017 9:17a [facility] Rossy Bay, R55 Syncope and Assocjasmin M.D. collapse Hospitalists R07.9 Chest pain, unspecified E11.8 Type 2 diabetes mellitus with unspecified complications I10 Essential (primary) hypertension Office Visit 04/28/2017 9:40a [facility] Elvis M62.89 Other specified Of Etta Villatoro M.D. disorders of muscle Office Visit [facility]/28[facility]2017 [facility] Syncope and Assjasmin lombardi M.D. collapse Hospitalists R07.9 Chest pain, unspecified I10 Essential (primary) hypertension E11.8 Type 2 diabetes mellitus with unspecified complications Office Visit 04/27/2017 [facility], R55 Syncope and Assjasmin lombardi M.D. collapse Hospitalists R07.9 Chest pain, unspecified I10 Essential (primary) hypertension E11.8 Type 2 diabetes mellitus with unspecified complications Office Visit 04/26/2017 9:14a [facility] Rossy Bay, R55 Syncope and Assocjasmin M.D. collapse Hospitalists R07.9 Chest pain, unspecified I10 Essential (primary) hypertension E11.8 Type 2 diabetes mellitus with unspecified complications Office Visit 04/25/2017 [facility], R55 Syncope and 9:13a Assocpc [place] collapse Hospitalists R07.9 Chest pain, unspecified I10 Essential (primary) hypertension E11.8 Type 2 diabetes mellitus with unspecified complications Office Visit [facility]2017 [facility], R55 Syncope and 9:12a Assoc,pc PA collapse Hospitalists R07.9 Chest pain, unspecified I10 Essential (primary) hypertension E11.8 Type 2 diabetes mellitus with unspecified complications Office Visit 04/24/2017 4:26p [facility] Abelino Smalls R55 Syncope and Of [facility] Lemuel, [facility] collapse Z95.0 Presence of cardiac pacemaker Office Visit 04/23/2017 9:11a [facility] Raymond Torres, R55 Syncope and Assoc,pc N.P. collapse Hospitalists R07.9 Chest pain, unspecified I10 Essential (primary) hypertension E11.8 Type 2 diabetes mellitus with unspecified complications Office Visit 02/21/2017 11:07a [facility] Junior Escobar, R07.9 Chest pain, Assoc,pc unspecified Hospitalists G89.29 Other chronic pain F41.9 Anxiety disorder, unspecified E11.9 Type 2 diabetes mellitus without complications Office Visit 02/20/2017 11:06a [facility] Kolton R07.9 Chest pain, Assoc,pc Rodirck [place] unspecified Hospitalists G89.29 Other chronic pain F41.9 Anxiety disorder, unspecified E11.9 Type 2 diabetes mellitus without complications Office Visit 02/19/2017 11:06a [facility] Jassi R07.9 Chest pain, Assoc,pc [place] unspecified Hospitalists G89.29 Other chronic pain F41.9 Anxiety disorder, unspecified E11.9 Type 2 diabetes mellitus without complications Office Visit 02/18/2017 11:05a [facility] Jie Harry, R07.9 Chest pain , Assoc,pc N.P. unspecified Hospitalists G89.29 Other chronic pain E11.9 Type 2 diabetes mellitus without complications F41.9 Anxiety disorder, unspecified Office 02/17/2017 [facility] Robin R07.9 Chest pain, Visit 11:04a Assoc,pc [place] unspecified Hospitalists G89.29 Other chronic pain E11.9 Type 2 diabetes mellitus without complications F41.9 Anxiety disorder, unspecified Office Visit 02/14/2017 1:07p [facility] Christian Caballero, R55 Syncope and Assoc,pc collapse Hospitalists E11.8 Type 2 diabetes mellitus with unspecified complications G89.29 Other chronic pain T79.6xxA Traumatic ischemia of muscle, initial encounter Office Visit 02/13/2017 1:06p [facility] Christian Caballero, R55 Syncope and Assoc,pc collapse Hospitalists E11.8 Type 2 diabetes mellitus with unspecified complications G89.29 Other chronic pain T79.6xxA Traumatic ischemia of muscle, initial encounter Office Visit 02/12/2017 1:06p [facility] Marisol Nina, R55 Syncope and Assoc,pc DO collapse Hospitalists E11.8 Type 2 diabetes mellitus with unspecified complications G89.29 Other chronic pain T79.6xxA Traumatic ischemia of muscle, initial encounter Office Visit 02/11/2017 1:05p [facility] Deisy Tolliverhn, R55 Syncope and Assjasmin lombardi M.D. collapse Hospitalists E11.8 Type 2 diabetes mellitus with unspecified complications G89.29 Other chronic pain T79.6xxA Traumatic ischemia of muscle, initial encounter Office Visit 01/14/2017 1:00p [facility] Deisy Kristopher, M25.562 Pain in left M.D. knee G89.29 Other chronic pain I10 Essential (primary) hypertension E11.9 Type 2 diabetes mellitus without complications Office Visit 12/31/2016 1:52p [facility] Dusty R07.1 Chest pain on Assocjasmin M.D. breathing Hospitalists R60.0 Localized edema R94.31 Abnormal electrocardiogram [ECG] [EKG] Office Visit 10/05/2016 [facility] Bruce Staples R07.9 Chest pain, 3:32p Of Mere Alex M.D. unspecified Office Visit 10/03/2016 [facility] Deisy Kristopher, R07.1 Chest pain on 2:50p jasmin Leal M.D. breathing Hospitalists M25.512 Pain in left shoulder Office Visit 03/14/2016 [facility] Abelino Smalls Z01.810 Encounter for 3:00p Cardiology Of DO Lemuel preprocedural [facility] cardiovascular examination I10 Essential (primary) hypertension E11.9 Type 2 diabetes mellitus without complications E78.5 Hyperlipidemia, unspecified Z95.0 Presence of cardiac pacemaker M17.12 Unilateral primary osteoarthritis, left knee Office Visit 07/07/2015 [facility] Christel SEamon R41.0 Disorientation, 10:05a Assoc,jasmin Anna, N.PEamon unspecified Hospitalists R79.89 Other specified abnormal findings of blood chemistry E03.9 Hypothyroidism, unspecified I10 Essential (primary) hypertension Office Visit 02/16/2015 [facility] Bebeto Barroso 427.1 Paroxysmal 12:55p Assjasmin lombardi II, M.D. Ventricular Hospitalists Tachycardia 427.31 Atrial Fibrillation 428.0 Congestive Heart Failure Unspecified Office Visit 02/03/2015 [facility] 009.0 Infectious Colitis 1:08p Assoc,pc BABAR Bryant Enteritis & Hospitalists Gastroenteritis 787.91 Diarrhea 558.9 Gastroenteritis & Colitis Noninfectious Other Office Visit 10/27/2014 10:15a Orthopedic Joselin 719.41 Pain Joint Services Of Riki [facility] Shoulder Region C.M.A. Office Visit 10/22/2013 1:45p Orthopedic Linda Sanderson V43.64 Hip Replacement Services Of Rodrick By Other Means C.M.A. 719.45 Pain Joint Pelvic Region & Thigh Office Visit 10/08/2013 2:15p Orthopedic Joselin V43.64 Hip Replacement Services Of Riki [facility] By Other Means C.M.A. 719.45 Pain Joint Pelvic Region & Thigh Office Visit 09/30/2013 2:27p [facility] Noemy 786.51 Pain Precordial Assoc,pc Юлия Robertson Hospitalists 789.01 Pain Abdominal Right Upper Quadrant 787.01 Nausea W/ Vomiting 564.1 Irritable Bowel Syndrome Office Visit 09/29/2013 2:25p [facility] Jie Mcdnoald, 786.51 Pain Precordial Assoc,pc N.P. Hospitalists 789.01 Pain Abdominal Right Upper Quadrant 787.01 Nausea W/ Vomiting Office Visit 06/22/2013 8:00a [facility] Suresh Cantu, 840.4 Sprains & Of C.M.Rodrigo Mensah Strains Rotator Cuff (Capsule) Office Visit 03/18/2012 6:53p [facility] Rossy 780.2 Syncope & Assoc,jasmin Bay M.D. Collapse Hospitalists 401.9 Hypertension Unspec 272.2 Hyperlipidemia Mixed Office Visit 03/14/2012 6:52p [facility] Rossy 780.2 Syncope & Assoc,jasmin Bay M.D. Collapse Hospitalists 401.9 Hypertension Unspec 272.2 Hyperlipidemia Mixed Office Visit 03/13/2012 1:46p [facility] Dick Grace 780.2 Syncope & Assoc,pc Rodrick Collapse Hospitalists 401.9 Hypertension Unspec 272.2 Hyperlipidemia Mixed Office Visit 03/12/2012 6:50p [facility] Dick Grace 780.2 Syncope & Assoc,pc [place] Collapse Hospitalists 401.9 Hypertension Unspec 272.2 Hyperlipidemia Mixed Office Visit 08/12/2011 10:45a Neurosurgery Dylan Vazquez 724.2 Lumbago Services Of Mere Parkinson M.D. Office Visit 07/12/2011 11:30a Neurosurgery Dylan Vazquez 847.2 Sprains & Services Of Mere Parkinson M.D. Strains Lumbar 847.1 Sprains & Strains Thoracic 719.45 Pain Joint Pelvic Region & Thigh Office Visit 06/23/2006 10:20a [facility] Gabrieltavineet SEamon 786.50 Pain Chest Rodrick Harkins Unspec 794.31 Electrocardiogram (ECG) (EKG) Abnormal V72.81 Examination Preoperative Cardiovascular Plan of Treatment 01/05/2018 - Linda Sanderson M.D.M25.551 Pain in right hipNew Therapy:Physical TherapyFollow up:Follow up: None cewomuK98.641 Presence of right artificial hip cocbsI58.xxxA Unspecified fall, initial encounter
[2018-06-11] MEDS ORDERED: Cyclobenzaprine TAB* 10 MG PO ONE (22:34)
[2018-06-11] MEDS ORDERED: Morphine VIAL* 10 MG/ML 1 ML VIAL IM ONE (22:35)
--- NOTE | 2018-06-11 22:37 | ED ---
Back Pain - HPI Summary HPI Summary: This patient is a 63 year old F presenting to [facility] with a chief complaint of mild lower back pain since 11:30 today. The patient rates the pain 7/10 in severity. Symptoms aggravated by nothing. Symptoms alleviated by nothing. Patient reports left eye swelling since 10 days ago. Hx of back surgery. Patient took 15mg oxycodone at 12:00 but notes that her pain has not been alleviated. - History of Current Complaint Chief Complaint: EDBackInjuryPain Stated Complaint: SEVERE BACK PAIN Time Seen by Provider: 06/11/18 22:18 Hx Obtained From: Patient Onset/Duration: Sudden Onset, Lasting Hours, Still Present Onset/Duration: Started Hours Ago Timing: Lasting Hours Severity Initially: Moderate Severity Currently: Moderate Pain Intensity: 8 Pain Scale Used: 0-10 Numeric Aggravating Symptom(s): Nothing Alleviating Symptom(s): Nothing - Allergies/Home Medications Allergies/Adverse Reactions: Allergies Allergy/AdvReac Type Severity Reaction Status Date / Time cefazolin [From Ancef] Allergy Unknown Verified 06/11/18 19:41 Reaction Details citalopram [From Celexa] Allergy Insomnia Verified 06/11/18 19:41 naproxen Allergy Vomiting Verified 06/11/18 19:41 NSAIDS (Non-Steroidal Allergy GI Upset Verified 06/11/18 19:41 Anti-Inflamma Penicillins Allergy Rash Verified 06/11/18 19:41 Sulfa (Sulfonamide Allergy Unknown Verified 06/11/18 19:41 Antibiotics) Reaction Details zaleplon [From Sonata] Allergy Insomnia Verified 06/11/18 19:41 PMH/Surg Hx/FS Hx/Imm Hx Endocrine/Hematology History: Reports: Hx Blood Transfusions, Hx Diabetes Denies: Hx Anticoagulant Therapy, Hx Blood Disorders, Hx Bone Marrow Disease , Hx Systemic Lupus Erythematosus, Hx Sickle Cell Disease, Hx Thyroid Disease, Hx Anemia, Hx Unexplained Bleeding Cardiovascular History: Reports: Hx Angina, Hx Auto Implanted Cardiovert Defib, Hx Cardiomegaly - SINCE IN HER TEENS, Hx Congestive Heart Failure, Hx Deep Vein Thrombosis, Hx Embolism, Hx Hypertension, Hx Pacemaker/ICD, Other Cardiovascular Problems/Disorders - pericarditis Denies: Hx Coronary Artery Disease, Hx Hypercholesterolemia, Hx Myocardial Infarction, Hx Peripheral Vascular Disease, Hx Valvular Heart Disease Respiratory History: Reports: Hx Chronic Bronchitis, Hx Pneumonia, Other Respiratory Problems/Disorders - sob associated - inspiratory pain left ribs, abdominal distention per pt Denies: Hx Asthma, Hx Chronic Obstructive Pulmonary Disease (COPD) GI History: Reports: Hx Gastroesophageal Reflux Disease, Hx Irritable Bowel, Other GI Disorders - ABDOMEN DISTENDED, IBS Denies: Hx Cirrhosis, Hx Ulcer History: Denies: Hx Dialysis, Hx Renal Disease Musculoskeletal History: Reports: Hx Back Problems - back surgery x 3, Hx Orthopedic Injury, Other Musculoskeletal History - knee, hip surgery hx Denies: Hx Bursitis, Hx Congenital Bone Abnormalities, Hx Fibromyalgia, Hx Gout, Hx Osteoporosis, Hx Scoliosis, Hx Tendonitis Sensory History: Reports: Hx Contacts or Glasses Denies: Hx Cataracts, Hx Eye Injury, Hx Eye Prosthesis, Hx Glaucoma, Hx Macular Degeneration, Hx Vision Problem, Hx Deafness, Hx Hearing Aid, Hx Hearing Problem, Other Sensory Impairments Opthamlomology History: Reports: Hx Contacts or Glasses Denies: Hx Cataracts, Hx Eye Injury, Hx Eye Prosthesis, Hx Glaucoma, Hx Macular Degeneration, Hx Vision Problem, Other Sensory Impairments Neurological History: Denies: Hx Dementia, Hx Developmental Delay, Hx Headaches, Hx Migraine, Hx Seizures, Hx Spinal Cord Injury, Hx Transient Ischemic Attacks (TIA), Other Neuro Impairments/Disorders - LOC WITH FALLL Psychiatric History: Reports: Hx Anxiety Denies: Hx Attention Deficit Hyperactivity Disorder, Hx Eating Disorder, Hx Depression, Hx Panic Disorder, Hx Post Traumatic Stress Disorder, Hx Inpatient Treatment, Hx Schizophrenia, Hx Bipolar Disorder, Hx Suicide Attempt, Hx Substance Abuse, Other Psychiatric Issues/Disorders - Cancer History Cancer Type, Location and Year: skin cancer on right leg, removed Hx Chemotherapy: No Hx Radiation Therapy: No - Surgical History Surgery Procedure, Year, and Place: left shoulder surgery Jul 08 2013 csections x 3. partial hysterectomy. 3 back surgeries. right hip REPLACEMENT. LEFT KNEE RECONSTRUCTION. PACEMAKER [id number]. 3 C- SECTIONS. RIGHT SHOULDER ROTATOR CUFF REPAIR - 15 YEARS AGO. UMBILICAL HERNIA REPAIR Hx Anesthesia Reactions: Yes - PROPOFOL REACTION- THRASHING AND SCREAMING - Immunization History Date of Tetanus Vaccine: utd Date of Influenza Vaccine: utd Infectious Disease History: Yes Infectious Disease History: Reports: Hx Clostridium Difficile, Hx of Known/ Suspected MRSA Denies: Hx Hepatitis, Hx Human Immunodeficiency Virus (HIV), Hx Shingles, Hx Tuberculosis, Traveled Outside the [place] in Last 30 Days - Family History Known Family History: Positive: Cardiac Disease - CAD, Diabetes, Other - Breast CA - Social History Alcohol Use: None Hx Substance Use: No Substance Use Type: Reports: None Hx Tobacco Use: No Smoking Status (MU): Never Smoked Tobacco Have You Smoked in the Last Year: No Review of Systems Negative: Fever Positive: Other - left eye swelling Negative: Epistaxis Negative: Vomiting Musculoskeletal: Other - lower back pain All Other Systems Reviewed And Are Negative: Yes Physical Exam - Summary Physical Exam Summary: VITAL SIGNS: Reviewed. GENERAL: Patient is a morbidly obese FEMALE who is lying comfortable in the stretcher. Patient is not in any acute respiratory distress. HEAD AND FACE: No signs of trauma. No ecchymosis, hematomas or skull depressions. No sinus tenderness. EYES: PERRLA, EOMI x 2, No injected conjunctiva, no nystagmus. EARS: Hearing grossly intact. Ear canals and tympanic membranes are within normal limits. MOUTH: Oropharynx within normal limits. NECK: Supple, trachea is midline, no adenopathy, no JVD, no carotid bruit, no c- spine tenderness, neck with full ROM. CHEST: Symmetric, no tenderness at palpation LUNGS: Clear to auscultation bilaterally. No wheezing or crackles. CVS: Regular rate and rhythm, S1 and S2 present, no murmurs or gallops appreciated. ABDOMEN: Soft. No signs of distention. No rebound no guarding, and no masses palpated. Bowel sounds are normal. Tenderness over the lumbosacral spine EXTREMITIES: FROM in all major joints, no edema, no cyanosis or clubbing. Bilateral straight leg test positive by 10 degrees NEURO: Alert and oriented x 3. No acute neurological deficits. Speech is normal and follows commands. SKIN: Dry and warm Triage Information Reviewed: Yes Vital Signs On Initial Exam: Initial Vitals Temp Pulse Resp BP Pulse Ox 97.0 F 78 16 163/83 97 06/11/18 19:30 06/11/18 19:30 06/11/18 19:30 06/11/18 19:30 06/11/18 19:30 Vital Signs Reviewed: Yes Diagnostics - Vital Signs Vital Signs Temp Pulse Resp BP Pulse Ox 06/11/18 21:55 97.3 F 78 16 156/82 98 06/11/18 19:30 97.0 F 78 16 163/83 97 - Laboratory Result Diagrams: 06/12/18 00:04 06/12/18 00:04 Lab Statement: Any lab studies that have been ordered have been reviewed, and results considered in the medical decision making process. Re-Evaluation - Re-Evaluation 1st re-eval Re-Evaluation Time: 23:30 Change: Unchanged Comment: Patient stated she still is having back pain. She lives alone and does not feel comfortable going home since she has difficulty ambulating. Back Pain Course/Dx - Course Course Of Treatment: This patient is a 63 year old F presenting to [facility] with a chief complaint of mild lower back pain since 11:30 today. The patient rates the pain 7/10 in severity. Patient reports left eye swelling since 10 days ago. Hx of back surgery. Patient took 15mg oxycodone at 12:00 but notes that her pain has not been alleviated. In the ED course the patient was given morphine and flexeril. Upon re-eval patient stated she still is having back pain. She lives alone and does not feel comfortable going home since she has difficulty ambulating. We discussed patient care with Dr. Bay, hospitalist, and they agreed to admit the patient. Patient will be admitted to [facility]. The patient is agreeable with this plan. - Diagnoses Provider Diagnoses: Lower back pain - Provider Notifications Discussed Care Of Patient With: Rossy Bay Time Discussed With Above Provider: 00:58 Instructed by Provider To: Admit As Inpatient Discharge - Sign-Out/Discharge Documenting (check all that apply): Patient Departure - admit - Discharge Plan Condition: Stable Disposition: ADMITTED TO [facility] Referrals: Olga Cavanaugh MD [Primary Care Provider] - - Attestation Statements Document Initiated by Scribe: Yes Documenting Scribe: Mariluz Suggs Provider For Whom Amyibe is Documenting (Include Credential): Mervin Freed MD Scribe Attestation: Mariluz Perez scribed for Mervin Freed MD on 06/12/18 at 0058. Status of Scribe Document: Ready
[2018-06-11] MEDS ORDERED: Morphine VIAL* 4 MG/ML VIAL (1 ml vial) IV ONE (23:56)
[2018-06-12 00:19] LABS: ABS Basophils 0 10^3/ul (0-0.2); ABS Eosinophils 0 10^3/ul (0-0.6); ABS Lymphocytes 2.3 10^3/ul (1.0-4.8); ABS Monocytes 0.7 10^3/ul (0-0.8); ABS Neutrophils 4.2 10^3/ul (1.5-7.7); ABS Nucleated RBC 0 10^3/ul; Eosinophil % 0.6 %; Hematocrit 35 % (35-47); Hemoglobin 11.7 g/dl (12.0-16.0); Lymphocyte % 31.7 %; Mean Corpuscular HGB Conc 33 g/dl (31-36); Mean Corpuscular Hemoglobin 30 pg (27-31); Mean Corpuscular Volume 91 fL (80-97); Mean Platelet Volume 8.1 fL (7.4-10.4); Nucleated Red Blood Cells % 0.1; Platelet Count 294 10^3/ul (150-450); Red Cell Distribution Width 16 % (10.5-15); White Blood Count 7.2 10^3/ul (3.5-10.8)
[2018-06-12 00:32] LABS: Activated Partial Thrombo Time 28.6 seconds (26.0-36.3); INR 0.96 (0.77-1.02)
[2018-06-12 00:48] LABS: Albumin 3.7 g/dL (3.2-5.2); Albumin/Globulin Ratio 1.1 (1-3); BUN/Creatinine Ratio 15.5 (8-20); C Reactive Protein 13.48 mg/L (<8.01); Calcium 9.6 mg/dL (8.6-10.3); EGFR African American 126.2 (>60); EGFR Non-African American 104.3 (>60); Globulin 3.5 g/dL (2-4); Magnesium 1.6 mg/dL (1.9-2.7); Potassium 3.7 mmol/L (3.5-5.0); Total Bilirubin 0.5 mg/dL (0.2-1.0); Total Protein 7.2 g/dL (6.4-8.9)
[2018-06-12] MEDS ORDERED: Acetaminophen TAB* 325 MG PO PRN (01:16)
[2018-06-12] MEDS ORDERED: Polyethylene Glycol 3350* 17 GM PACKET PO PRN (01:16)
[2018-06-12 01:19] LABS: Urine Appearance Clear; Urine Bacteria Absent (Absent); Urine Bilirubin Negative (Negative); Urine Blood Negative (Negative); Urine Color Yellow; Urine Glucose Negative (Negative); Urine Ketones Negative (Negative); Urine Nitrite Negative (Negative); Urine Protein Negative (Negative); Urine Red Blood Cell Absent (Absent); Urine Specific Gravity 1.008 (1.010-1.030); Urine Squamous Epithelial Cell Present (Absent); Urine Urobilinogen Negative (Negative); Urine White Blood Cell 1+(6-10/hpf) (Absent)
[2018-06-12] MEDS ORDERED: Morphine VIAL* 4 MG/ML VIAL (1 ml vial) IV PRN (01:22)
[2018-06-12] MEDS ORDERED: Dextrose 50% Syringe 50 ML* 25 GM/50 ML SYRINGE IV PUSH PRN (01:40)
[2018-06-12] MEDS ORDERED: Magnesium Sulfate 2 GM IV* 2 GM/50 ML BAG IVPB ONE (02:30)
[2018-06-12] MEDS: Zolpidem TAB* 10 MG PO PRN ×2 (02:33→20:58)
[2018-06-12] MEDS: oxyCODONE TAB* 5 MG TAB PO PRN ×5 (02:33→20:59)
--- NOTE | 2018-06-12 04:07 | HP ---
CC: Dr. Olga Cavanaugh * HISTORY AND PHYSICAL: DATE OF ADMISSION: 06/12/18 TIME OF EVALUATION: 1:10 a.m. PRIMARY CARE PROVIDER: Dr. Olga Cavanaugh. CHIEF COMPLAINT: Back pain. HISTORY OF PRESENT ILLNESS: Mrs. Barragan is a 63-year-old lady with a past medical history of morbid obesity, type 2 diabetes, hyperlipidemia, hypertension , coronary artery disease, hypothyroidism, status post pacemaker, chronic pain who presented to the emergency room with complaints of back pain. The patient was last admitted to the hospitalist service on 05/20/18 with complaints of chest pain. Acute coronary syndrome was ruled out and the patient was discharged to [facility] for rehab. She states she was discharged home 1 week later and that she had been doing well at home until last night. She states that she went to sit down on her chair and she sat "wrong" and twisted her back. She immediately started to have severe back pain and actually required help from her neighbors to move to the car and come to the emergency room. In the ED, she received morphine, cyclobenzaprine, but states that her pain is too severe and she will not be able to manage at home as she lives by herself and still has significant pain. She rates the pain as 10/10, in the middle of her lower back radiating to both legs, worsened by movement. She has bilateral feet tingling, but that is not new to her. She denies weakness, but states that movement makes the pain worse. There is no fever, chills, fall, chest pain, palpitations, shortness of breath. The patient states that she developed a "bump" in the inner corner of her left eye that has been tender. She states her PCP told her it is skin cancer and she has an appointment to see Dr. Garzon in 2 weeks. PAST MEDICAL HISTORY: 1. Morbid obesity with a BMI of 38. 2. Type 2 diabetes. 3. Hyperlipidemia. 4. Hypertension. 5. Coronary artery disease. 6. Hypothyroidism. 7. Status post pacemaker. 8. Chronic pain. 9. Status post lumbar laminectomy. 10. Status post left rotator cuff repair. 11. Status post bilateral total knee replacements. 12. Status post right hip replacement. 13. Status post . MEDICATIONS: 1. Acetaminophen 650 mg p.o. q.6 hours p.r.n. pain or fever. 2. Aspirin 81 mg p.o. daily. 3. Vitamin D 2000 units p.o. daily. 4. Cardizem CD 240 mg p.o. daily. 5. Furosemide 40 mg p.o. daily. 6. Irbesartan 150 mg p.o. daily. 7. Levothyroxine 75 mcg p.o. daily at 6 a.m. 8. Lorazepam 1 mg p.o. 4 times a day as needed for anxiety, MDD 4 tablets. 9. Metformin 1000 mg p.o. in the morning, 500 mg p.o. at bedtime. 10. Multivitamin 1 tablet p.o. daily. 11. Oxycodone 15 mg p.o. q.4 hours p.r.n. pain, MDD 60 mg. 12. Pantoprazole 40 mg p.o. daily. 13. MiraLAX 17 g p.o. daily as needed for constipation. 14. Senna 2 tablets p.o. b.i.d. 15. Simvastatin 40 mg p.o. at bedtime. 16. Zolpidem 10 mg p.o. at bedtime p.r.n. insomnia. ALLERGIES: The patient had reactions to CEFAZOLIN, CITALOPRAM, NSAIDS, PENICILLIN, SULFA, and ZALEPLON. FAMILY HISTORY: Father had heart disease in his 50s. Brother of an MA at age 51. SOCIAL HISTORY: She denies tobacco, alcohol or drug use. She is disabled. She lives independently in her apartment. Her surrogate decision maker is her mother, Juhi Omer, phone number [phone]. REVIEW OF SYSTEMS: A 14-point review of systems was performed and all the pertinent negative and positive findings are in the HPI. PHYSICAL EXAMINATION GENERAL: The patient is a pleasant, morbidly obese lady, lying on the ED stretcher, in no acute distress. VITAL SIGNS: Temperature 97.8, heart rate is 70, respiratory rate is 20, oxygen saturation is 95% on room air, blood pressure is 141/78. HEENT: Pupils are equal. Moist mucous membranes. The patient has a maxwell- like lesion in the inner corner of her left eye with no significant edema or drainage at this time. CHEST: Breath sounds present bilaterally with no added sounds. CARDIOVASCULAR: Normal S1, S2. Regular rate and rhythm. ABDOMEN: Obese. Bowel sounds are present. EXTREMITIES: There is trace bilateral lower extremity edema. NEUROLOGIC: She is alert and oriented x3. Able to move all 4 extremities. Sensation is decreased in both feet. DIAGNOSTIC STUDIES/LAB DATA: The patient had a CBC that showed a WBC of 7.2, hemoglobin of 11.7, hematocrit of 35, platelets of 295 with 58% neutrophils. INR 0.96. Chemistry showed a sodium of 139, potassium 3.7, chloride of 102, bicarb of 28, BUN of 9, creatinine of 0.5, glucose of 122, calcium 9.6, magnesium is 1.6. LFTs are normal with a CRP of 13. Urinalysis showed 1+ LE, 1 + wbc, and squamous epithelial cells are present. ASSESSMENT AND PLAN: Mrs. Barragan is a 63-year-old lady with a past medical history of morbid obesity, type 2 diabetes, hyperlipidemia, hypertension, coronary artery disease; status post pacemaker, hypothyroidism, chronic pain who presents to the emergency room with complaints of severe back pain after sitting "wrong" on her chair. 1. Intractable back pain. Musculoskeletal in nature. The patient says she cannot manage independently at home as it is right now. She will be admitted for pain management. I am going to continue her usual medications, add morphine IV and cyclobenzaprine. She will be seen by Physical Therapy. The patient is willing to go to rehab again if necessary. 2. Type 2 diabetes. We will continue metformin and add lispro sliding scale. 3. Hypertension. We will continue diltiazem and ARB, also furosemide. 4. Hyperlipidemia. We will continue simvastatin. 5. Hypothyroidism. We will continue levothyroxine. 6. DVT prophylaxis: The patient has a score of 4 on the DVT Prophylaxis Risk Assessment Guide and she will be started on subcutaneous heparin. 7. Code status is full. TIME SPENT: Approximately 50 minutes were spent with patient interview, medical records review, physical examination to complete this admission, more than half of this time was spent [id number] with the patient and in coordination of care. [id number]/[facility] #: [id number] KARRI
[2018-06-12] MEDS: Levothyroxine TAB* 75 MCG TAB PO SCH (06:33)
[2018-06-12] MEDS: Heparin VIAL(*) 5000 UNITS/ML VIAL (FIVE THOUSAND) SUBCUT SCH ×3 (06:38→20:49)
[2018-06-12] MEDS: Insulin LISPRO* 1 UNITS UNIT SUBCUT SCH ×4 (09:24→20:50)
[2018-06-12] MEDS: Senna TAB PO SCH ×2 (09:25→20:50)
[2018-06-12] MEDS: Cholecalciferol TAB* 1000 UNITS PO SCH (09:25)
[2018-06-12] MEDS: Losartan TAB* 25 MG PO SCH (09:26)
[2018-06-12] MEDS: Furosemide TAB* 40 MG PO SCH (09:26)
[2018-06-12] MEDS: Prenatal Vitamin TAB PO SCH (09:26)
[2018-06-12] MEDS: Aspirin 81 mg CHEW TAB* 81 MG TAB.CHEW PO SCH (09:26)
[2018-06-12] MEDS: Diltiazem CD CAP* 240 MG PO SCH (09:26)
[2018-06-12] MEDS: metFORMIN* 1,000 MG TAB PO SCH (09:26)
[2018-06-12] MEDS: LORazepam TAB(*) 1 MG PO PRN ×3 (09:57→20:58)
--- NOTE | 2018-06-12 19:47 | PN ---
Subjective Date of Service: 06/12/18 Interval History: Resting in bed on assessment. Reports pain in bilateral low back that radiates down both legs. Reports pain is currently tolerable with PO pain medications. Reports slight new numbness/tingling to RLE. Reports baseline numbness/tingling to LLE. No loss of bowel or bladder. No cp, sob, palpitations, n/v/d. Objective Active Medications: Acetaminophen (Tylenol Tab*) 650 mg PO Q6H PRN PRN Reason: pain/fever Aspirin (Aspirin 81 Mg Chew Tab*) 81 mg PO DAILY [facility] Last Admin: 06/12/18 09:26 Dose: 81 mg Atorvastatin Calcium (Lipitor*) 20 mg PO BEDTIME [facility] Cholecalciferol (Vitamin D Tab*) 2,000 units PO DAILY [facility] Last Admin: 06/12/18 09:25 Dose: 2,000 units Cyclobenzaprine HCl (Flexeril Tab*) 10 mg PO TID PRN PRN Reason: Muscle spasms Dextrose (D50w Syringe 50 Ml*) 12.5 gm IV PUSH .FOR FS < 60 - SS PRN PRN Reason: FS < 60 Diltiazem HCl (Cardizem Cd Cap*) 240 mg PO DAILY [facility] Last Admin: 06/12/18 09:26 Dose: 240 mg Furosemide (Lasix Tab*) 40 mg PO DAILY [facility] Last Admin: 06/12/18 09:26 Dose: 40 mg Heparin Sodium (Porcine) (Heparin Vial(*)) 5,000 units SUBCUT Q8HR [facility] Last Admin: 06/12/18 15:22 Dose: 5,000 units Insulin Human Lispro (Humalog*) 0 units SUBCUT ACHS [facility]; Protocol Last Admin: 06/12/18 17:55 Dose: 2 units Levothyroxine Sodium (Synthroid Tab*) 75 mcg PO DAILY@0600 [facility] Last Admin: 06/12/18 06:33 Dose: 75 mcg Lorazepam (Ativan Tab(*)) 1 mg PO QID PRN PRN Reason: ANXIETY Last Admin: 06/12/18 16:30 Dose: 1 mg Losartan Potassium (Cozaar Tab*) 50 mg PO DAILY [facility] Last Admin: 06/12/18 09:26 Dose: 50 mg Metformin HCl (Glucophage*) 500 mg PO BEDTIME [facility] Metformin HCl (Glucophage*) 1,000 mg PO DAILY [facility] Last Admin: 06/12/18 09:26 Dose: 1,000 mg Morphine Sulfate (Morphine Vial*) 5 mg IV Q4H PRN PRN Reason: SEVERE PAIN Multivitamins ( Vitamin Tab*) 1 tab PO DAILY [facility] Last Admin: 06/12/18 09:26 Dose: 1 tab Oxycodone HCl (Roxycodone Tab*) 15 mg PO Q4H PRN PRN Reason: PAIN Last Admin: 06/12/18 16:30 Dose: 15 mg Polyethylene Glycol/Electrolytes (Miralax*) 17 gm PO DAILY PRN PRN Reason: CONSTIPATION Polyvinyl Alcohol (Polyvinyl Alcohol 1.4% Opth*) 1 drop BOTH EYES Q2H PRN PRN Reason: DRY EYE Senna (Senokot Tab*) 2 tab PO BID [facility] Last Admin: 06/12/18 09:25 Dose: 2 tab Zolpidem Tartrate (Ambien Tab*) 10 mg PO BEDTIME PRN PRN Reason: SLEEP Last Admin: 06/12/18 02:33 Dose: 10 mg Vital Signs - 8 hr 06/12/18 06/12/18 06/12/18 11:45 12:00 14:00 Temperature 97.8 F Pulse Rate 62 Respiratory 18 7 17 Rate Blood Pressure 151/75 (mmHg) O2 Sat by Pulse 95 Oximetry 06/12/18 06/12/18 06/12/18 15:57 16:30 18:30 Temperature 98.4 F Pulse Rate 66 Respiratory 20 17 17 Rate Blood Pressure 127/66 (mmHg) O2 Sat by Pulse 93 Oximetry 06/12/18 18:45 Temperature Pulse Rate Respiratory 17 Rate Blood Pressure (mmHg) O2 Sat by Pulse Oximetry Oxygen Devices in Use Now: None Appearance: Comfortable, NAD Eyes: No Scleral Icterus Ears/Nose/Mouth/Throat: Clear Oropharnyx, Mucous Membranes Moist Neck: NL Appearance and Movements; NL JVP Respiratory: Symmetrical Chest Expansion and Respiratory Effort, Clear to Auscultation Cardiovascular: NL Sounds; No Murmurs; No JVD Abdominal: NL Sounds; No Tenderness; No Distention Extremities: No Edema, No Clubbing, Cyanosis Skin: No Rash or Ulcers Neurological: Alert and Oriented x 3, NL Sensation, NL Muscle Strength and Tone Nutrition: Taking PO's Result Diagrams: 06/12/18 00:04 06/12/18 00:04 Assess/Plan/Problems-Billing Assessment: 63 yr old female with pmh of obesity, DM2, HLD, HTN, CAD, hypothyroid; who presented to the ED with back pain after turning when sitting incorrectly - Patient Problems (1) Back pain Comment: - Pain controlled with PO pain meds. Has Morphine IV prn and Flexeril - CT lumbar spine ordered due to reported new symptoms. - Physical therapy consult - Reports she cannot manage at home with pain, therefore, interested in subacute rehab (2) Diabetes Comment: - Cont SS lispro and metformin (3) High cholesterol Comment: - Cont statin (4) Hypertension Comment: - Cont Cardizem, Arb, and Furosimide (5) Hypothyroidism Comment: - Continue synthroid. (6) DVT prophylaxis Comment: - HSQ Status and Disposition: Discharge to subacute rehab when medically stable? Attending: Cesar Parks
[2018-06-12] MEDS: Atorvastatin* 20 MG TAB PO SCH (20:50)
[2018-06-12] MEDS: metFORMIN* 500 MG TAB PO SCH (20:50)
[2018-06-13] MEDS: oxyCODONE TAB* 5 MG TAB PO PRN ×5 (02:06→20:56)
[2018-06-13] MEDS: Heparin VIAL(*) 5000 UNITS/ML VIAL (FIVE THOUSAND) SUBCUT SCH ×4 (04:58→20:48)
[2018-06-13] MEDS: Levothyroxine TAB* 75 MCG TAB PO SCH (04:58)
[2018-06-13 07:38] LABS: BUN/Creatinine Ratio 19.2 (8-20); Calcium 9.2 mg/dL (8.6-10.3); EGFR African American 96.8 (>60); Magnesium 1.7 mg/dL (1.9-2.7)
[2018-06-13] MEDS: Insulin LISPRO* 1 UNITS UNIT SUBCUT SCH ×4 (08:01→20:48)
[2018-06-13] MEDS: Furosemide TAB* 40 MG PO SCH (08:02)
[2018-06-13] MEDS: Aspirin 81 mg CHEW TAB* 81 MG TAB.CHEW PO SCH (08:02)
[2018-06-13] MEDS: LORazepam TAB(*) 1 MG PO PRN ×3 (08:02→20:56)
[2018-06-13] MEDS: Diltiazem CD CAP* 240 MG PO SCH (08:02)
[2018-06-13] MEDS: Cholecalciferol TAB* 1000 UNITS PO SCH (08:02)
[2018-06-13] MEDS: Losartan TAB* 25 MG PO SCH (08:02)
[2018-06-13] MEDS: metFORMIN* 1,000 MG TAB PO SCH (08:02)
[2018-06-13] MEDS: Senna TAB PO SCH ×2 (08:02→20:49)
[2018-06-13] MEDS: Prenatal Vitamin TAB PO SCH (08:02)
--- NOTE | 2018-06-13 10:39 | PN ---
Subjective Date of Service: 06/13/18 Interval History: Ms. Barragan reports that she continues to have back pain and hopes for discharge to [facility]. She denies other complaint including chest pain, SOB, nausea, or abdominal pain. Objective Active Medications: Acetaminophen (Tylenol Tab*) 650 mg PO Q6H PRN Aspirin (Aspirin 81 Mg Chew Tab*) 81 mg PO DAILY [facility] Atorvastatin Calcium (Lipitor*) 20 mg PO BEDTIME [facility] Cholecalciferol (Vitamin D Tab*) 2,000 units PO DAILY [facility] Cyclobenzaprine HCl (Flexeril Tab*) 10 mg PO TID PRN Dextrose (D50w Syringe 50 Ml*) 12.5 gm IV PUSH .FOR FS < 60 - SS PRN Diltiazem HCl (Cardizem Cd Cap*) 240 mg PO DAILY [facility] Furosemide (Lasix Tab*) 40 mg PO DAILY [facility] Heparin Sodium (Porcine) (Heparin Vial(*)) 5,000 units SUBCUT Q8HR [facility] Insulin Human Lispro (Humalog*) 0 units SUBCUT ACHS [facility]; Protocol Levothyroxine Sodium (Synthroid Tab*) 75 mcg PO DAILY@0600 [facility] Lorazepam (Ativan Tab(*)) 1 mg PO QID PRN Losartan Potassium (Cozaar Tab*) 50 mg PO DAILY [facility] Metformin HCl (Glucophage*) 500 mg PO BEDTIME [facility] Metformin HCl (Glucophage*) 1,000 mg PO DAILY [facility] Morphine Sulfate (Morphine Vial*) 5 mg IV Q4H PRN Multivitamins ( Vitamin Tab*) 1 tab PO DAILY [facility] Oxycodone HCl (Roxycodone Tab*) 15 mg PO Q4H PRN Polyethylene Glycol/Electrolytes (Miralax*) 17 gm PO DAILY PRN Polyvinyl Alcohol (Polyvinyl Alcohol 1.4% Opth*) 1 drop BOTH EYES Q2H PRN Senna (Senokot Tab*) 2 tab PO BID [facility] Zolpidem Tartrate (Ambien Tab*) 10 mg PO BEDTIME PRN Vital Signs: Temp Pulse Resp BP Pulse Ox 98.5 F 70 18 143/66 94 06/13/18 07:52 06/13/18 07:52 06/13/18 10:17 06/13/18 07:52 06/13/18 07:52 Oxygen Devices in Use Now: None Appearance: Female lying in bed in NAD Eyes: No Scleral Icterus Ears/Nose/Mouth/Throat: Mucous Membranes Moist Respiratory: Symmetrical Chest Expansion and Respiratory Effort, Clear to Auscultation Cardiovascular: No Edema Abdominal: NL Sounds; No Tenderness; No Distention Extremities: No Edema Skin: No Rash or Ulcers Neurological: Alert and Oriented x 3, NL Muscle Strength and Tone Nutrition: Taking PO's Result Diagrams: 06/12/18 00:04 06/13/18 07:14 Microbiology and Other Data: . Assess/Plan/Problems-Billing Assessment: Ms Barragan is a 63 yr old female with pmh of obesity, DM2, HLD, HTN, CAD, hypothyroid; who presented to the ED with back pain after turning in her chair. - Patient Problems (1) Back pain Comment: - Pain controlled with PO pain meds. - CT lumbar spine ordered due to reported new symptoms. - Physical therapy consult - Reports she cannot manage at home with pain, therefore, interested in subacute rehab (2) CHF (congestive heart failure) Comment: - No evidence of acute exacerbation (3) Anxiety Comment: - Continue Lorazepam. (4) Chronic pain Comment: - Continue home dose of oxycodone (5) Diabetes Comment: - BG well controlled - Cont SS lispro and metformin (6) High cholesterol Comment: - Cont statin (7) Hypertension Comment: - Cont Cardizem, Arb, and Furosemide (8) Hypothyroidism Comment: - Continue synthroid. (9) DVT prophylaxis Comment: - HSQ (10) Full code status Comment: Status and Disposition: Discharge to subacute rehab when medically stable
[2018-06-13] MEDS: metFORMIN* 500 MG TAB PO SCH (20:49)
[2018-06-13] MEDS: Artificial Tears* 15 ML BTL BOTH EYES PRN (20:49)
[2018-06-13] MEDS: Cyclobenzaprine TAB* 10 MG PO PRN (20:49)
[2018-06-13] MEDS: Atorvastatin* 20 MG TAB PO SCH (20:49)
[2018-06-13] MEDS: Zolpidem TAB* 10 MG PO PRN (20:56)
[2018-06-14] MEDS: oxyCODONE TAB* 5 MG TAB PO PRN ×4 (01:37→21:36)
[2018-06-14] MEDS: Artificial Tears* 15 ML BTL BOTH EYES PRN (01:37)
[2018-06-14] MEDS: Levothyroxine TAB* 75 MCG TAB PO SCH (05:02)
[2018-06-14] MEDS: Heparin VIAL(*) 5000 UNITS/ML VIAL (FIVE THOUSAND) SUBCUT SCH ×3 (05:02→21:35)
[2018-06-14] MEDS: Insulin LISPRO* 1 UNITS UNIT SUBCUT SCH ×4 (07:41→21:33)
[2018-06-14] MEDS: Losartan TAB* 25 MG PO SCH (07:46)
[2018-06-14] MEDS: Diltiazem CD CAP* 240 MG PO SCH (07:46)
[2018-06-14] MEDS: LORazepam TAB(*) 1 MG PO PRN ×4 (07:46→21:35)
[2018-06-14] MEDS: Furosemide TAB* 40 MG PO SCH (07:46)
[2018-06-14] MEDS: Aspirin 81 mg CHEW TAB* 81 MG TAB.CHEW PO SCH (07:46)
[2018-06-14] MEDS: Senna TAB PO SCH ×2 (07:46→21:35)
[2018-06-14] MEDS: Cholecalciferol TAB* 1000 UNITS PO SCH (07:46)
[2018-06-14] MEDS: Prenatal Vitamin TAB PO SCH (07:46)
[2018-06-14] MEDS: metFORMIN* 1,000 MG TAB PO SCH (09:04)
--- NOTE | 2018-06-14 09:07 | PN ---
Subjective Date of Service: 06/14/18 Interval History: Ms. Barragan reports feeling the same. She has back pain that is reasonably well controlled on the current pain medication regimen. She intends to do short term rehab because she cannot manage at home due to pain. Objective Active Medications: Acetaminophen (Tylenol Tab*) 650 mg PO Q6H PRN Aspirin (Aspirin 81 Mg Chew Tab*) 81 mg PO DAILY [facility] Atorvastatin Calcium (Lipitor*) 20 mg PO BEDTIME [facility] Cholecalciferol (Vitamin D Tab*) 2,000 units PO DAILY [facility] Cyclobenzaprine HCl (Flexeril Tab*) 10 mg PO TID PRN Dextrose (D50w Syringe 50 Ml*) 12.5 gm IV PUSH .FOR FS < 60 - SS PRN Diltiazem HCl (Cardizem Cd Cap*) 240 mg PO DAILY [facility] Furosemide (Lasix Tab*) 40 mg PO DAILY [facility] Heparin Sodium (Porcine) (Heparin Vial(*)) 5,000 units SUBCUT Q8HR [facility] Insulin Human Lispro (Humalog*) 0 units SUBCUT ACHS [facility]; Protocol Levothyroxine Sodium (Synthroid Tab*) 75 mcg PO DAILY@0600 [facility] Lorazepam (Ativan Tab(*)) 1 mg PO QID PRN Losartan Potassium (Cozaar Tab*) 50 mg PO DAILY [facility] Metformin HCl (Glucophage*) 500 mg PO BEDTIME [facility] Metformin HCl (Glucophage*) 1,000 mg PO DAILY [facility] Multivitamins ( Vitamin Tab*) 1 tab PO DAILY [facility] Oxycodone HCl (Roxycodone Tab*) 15 mg PO Q4H PRN Polyethylene Glycol/Electrolytes (Miralax*) 17 gm PO DAILY PRN Polyvinyl Alcohol (Polyvinyl Alcohol 1.4% Opth*) 1 drop BOTH EYES Q2H PRN Senna (Senokot Tab*) 2 tab PO BID [facility] Zolpidem Tartrate (Ambien Tab*) 10 mg PO BEDTIME PRN Vital Signs: Temp Pulse Resp BP Pulse Ox 97.1 F 69 16 138/77 94 06/14/18 07:40 06/14/18 07:40 06/14/18 07:46 06/14/18 07:40 06/14/18 07:40 Oxygen Devices in Use Now: None Appearance: Female lying in bed in NAD Eyes: No Scleral Icterus Ears/Nose/Mouth/Throat: Mucous Membranes Moist Neck: Trachea Midline Respiratory: Symmetrical Chest Expansion and Respiratory Effort, Clear to Auscultation Cardiovascular: NL Sounds; No Murmurs; No JVD, No Edema Abdominal: NL Sounds; No Tenderness; No Distention Lymphatic: No Axillary Adenopathy Skin: No Rash or Ulcers Neurological: Alert and Oriented x 3, NL Muscle Strength and Tone Nutrition: Taking PO's Result Diagrams: 06/12/18 00:04 06/13/18 07:14 Microbiology and Other Data: . Assess/Plan/Problems-Billing Assessment: Ms Barragan is a 63 yr old female with pmh of obesity, DM2, HLD, HTN, CAD, hypothyroid; who presented to the ED with back pain after turning in her chair. - Patient Problems (1) Back pain Comment: - Pain controlled with PO pain meds. - CT lumbar spine with no cord compression or acute finding. - Physical therapy consult appreciated - Reports she cannot manage at home with pain, therefore, interested in subacute rehab (2) CHF (congestive heart failure) Comment: - No evidence of acute exacerbation (3) Anxiety Comment: - Continue Lorazepam. (4) Chronic pain Comment: - Continue home dose of oxycodone (5) Diabetes Comment: - BG well controlled - Cont SS lispro and metformin (6) High cholesterol Comment: - Cont statin (7) Hypertension Comment: - Cont Cardizem, Arb, and Furosemide (8) Hypothyroidism Comment: - Continue synthroid. (9) DVT prophylaxis Comment: - HSQ (10) Full code status Comment: Status and Disposition: Discharge to subacute rehab when medically stable
[2018-06-14] MEDS: metFORMIN* 500 MG TAB PO SCH (21:34)
[2018-06-14] MEDS: Atorvastatin* 20 MG TAB PO SCH (21:35)
[2018-06-14] MEDS: Cyclobenzaprine TAB* 10 MG PO PRN (21:39)
[2018-06-14] MEDS: Zolpidem TAB* 10 MG PO PRN (21:39)
[2018-06-15] MEDS: oxyCODONE TAB* 5 MG TAB PO PRN ×5 (02:14→21:17)
[2018-06-15] MEDS: LORazepam TAB(*) 1 MG PO PRN ×4 (02:19→21:18)
[2018-06-15] MEDS: Heparin VIAL(*) 5000 UNITS/ML VIAL (FIVE THOUSAND) SUBCUT SCH ×3 (06:33→21:16)
[2018-06-15] MEDS: Levothyroxine TAB* 75 MCG TAB PO SCH (06:34)
[2018-06-15 06:45] LABS: ABS Basophils 0 10^3/ul (0-0.2); ABS Eosinophils 0.1 10^3/ul (0-0.6); ABS Lymphocytes 2.6 10^3/ul (1.0-4.8); ABS Monocytes 0.6 10^3/ul (0-0.8); ABS Neutrophils 4.2 10^3/ul (1.5-7.7); ABS Nucleated RBC 0 10^3/ul; Eosinophil % 1.4 %; Hematocrit 40 % (35-47); Hemoglobin 13.6 g/dl (12.0-16.0); Lymphocyte % 34.9 %; Mean Corpuscular HGB Conc 34 g/dl (31-36); Mean Corpuscular Hemoglobin 31 pg (27-31); Mean Corpuscular Volume 91 fL (80-97); Mean Platelet Volume 8.2 fL (7.4-10.4); Nucleated Red Blood Cells % 0.2; Platelet Count 321 10^3/ul (150-450); Red Blood Count 4.44 10^6/ul (4.00-5.40); Red Cell Distribution Width 16 % (10.5-15); White Blood Count 7.5 10^3/ul (3.5-10.8)
[2018-06-15] MEDS: Insulin LISPRO* 1 UNITS UNIT SUBCUT SCH ×4 (08:04→21:16)
[2018-06-15] MEDS: Senna TAB PO SCH ×2 (09:30→21:18)
[2018-06-15] MEDS: metFORMIN* 1,000 MG TAB PO SCH (09:30)
[2018-06-15] MEDS: Losartan TAB* 25 MG PO SCH (09:30)
[2018-06-15] MEDS: Diltiazem CD CAP* 240 MG PO SCH (09:30)
[2018-06-15] MEDS: Cholecalciferol TAB* 1000 UNITS PO SCH (09:30)
[2018-06-15] MEDS: Aspirin 81 mg CHEW TAB* 81 MG TAB.CHEW PO SCH (09:31)
[2018-06-15] MEDS: Furosemide TAB* 40 MG PO SCH (09:31)
[2018-06-15] MEDS: Prenatal Vitamin TAB PO SCH (09:32)
[2018-06-15] MEDS: Cyclobenzaprine TAB* 10 MG PO PRN (10:53)
[2018-06-15] MEDS: Zolpidem TAB* 10 MG PO PRN (21:18)
[2018-06-15] MEDS: Atorvastatin* 20 MG TAB PO SCH (21:18)
[2018-06-15] MEDS: metFORMIN* 500 MG TAB PO SCH (21:18)
[2018-06-16] MEDS: oxyCODONE TAB* 5 MG TAB PO PRN ×5 (01:34→22:22)
[2018-06-16] MEDS: LORazepam TAB(*) 1 MG PO PRN ×4 (01:34→22:40)
[2018-06-16] MEDS: Levothyroxine TAB* 75 MCG TAB PO SCH (05:05)
[2018-06-16] MEDS: Heparin VIAL(*) 5000 UNITS/ML VIAL (FIVE THOUSAND) SUBCUT SCH ×3 (05:06→22:24)
[2018-06-16] MEDS: Insulin LISPRO* 1 UNITS UNIT SUBCUT SCH ×4 (07:41→22:39)
[2018-06-16] MEDS: metFORMIN* 1,000 MG TAB PO SCH (08:06)
[2018-06-16] MEDS: Furosemide TAB* 40 MG PO SCH (08:07)
[2018-06-16] MEDS: Prenatal Vitamin TAB PO SCH (08:07)
[2018-06-16] MEDS: Cholecalciferol TAB* 1000 UNITS PO SCH (08:07)
[2018-06-16] MEDS: Senna TAB PO SCH ×2 (08:07→22:23)
[2018-06-16] MEDS: Aspirin 81 mg CHEW TAB* 81 MG TAB.CHEW PO SCH (08:07)
[2018-06-16] MEDS: Losartan TAB* 25 MG PO SCH (08:08)
[2018-06-16] MEDS: Diltiazem CD CAP* 240 MG PO SCH (08:08)
[2018-06-16] MEDS: Atorvastatin* 20 MG TAB PO SCH (22:24)
[2018-06-16] MEDS: metFORMIN* 500 MG TAB PO SCH (22:40)
[2018-06-16] MEDS: Zolpidem TAB* 10 MG PO PRN (22:41)
[2018-06-17] MEDS: oxyCODONE TAB* 5 MG TAB PO PRN ×5 (02:30→22:02)
[2018-06-17] MEDS: LORazepam TAB(*) 1 MG PO PRN ×3 (06:20→22:02)
[2018-06-17] MEDS: Levothyroxine TAB* 75 MCG TAB PO SCH (06:22)
[2018-06-17] MEDS: Heparin VIAL(*) 5000 UNITS/ML VIAL (FIVE THOUSAND) SUBCUT SCH ×3 (06:23→22:04)
[2018-06-17] MEDS: Insulin LISPRO* 1 UNITS UNIT SUBCUT SCH ×4 (08:03→21:28)
[2018-06-17] MEDS: Furosemide TAB* 40 MG PO SCH (08:42)
[2018-06-17] MEDS: Cholecalciferol TAB* 1000 UNITS PO SCH (08:42)
[2018-06-17] MEDS: Aspirin 81 mg CHEW TAB* 81 MG TAB.CHEW PO SCH (08:42)
[2018-06-17] MEDS: Senna TAB PO SCH ×2 (08:42→21:37)
[2018-06-17] MEDS: Diltiazem CD CAP* 240 MG PO SCH (08:42)
[2018-06-17] MEDS: Prenatal Vitamin TAB PO SCH (08:42)
[2018-06-17] MEDS: Losartan TAB* 25 MG PO SCH (08:43)
[2018-06-17] MEDS: metFORMIN* 1,000 MG TAB PO SCH (08:43)
[2018-06-17] MEDS: Methocarbamol TAB* 500 MG PO SCH ×2 (13:04→21:39)
--- NOTE | 2018-06-17 16:17 | PN ---
Subjective Date of Service: 06/17/18 Interval History: Pt seen and examined. Meds and labs reviewed. CC: Back pain/spasms, 8-10 at time of interaction; 4-5/10 on average ROS: Denied ALAN/dizziness, F/C, N/V, CP, SOB, increased cough, sputum production , abd pain, diarrhea, constipation, dysuria, throat pain, and new skin lesions. The rest of the 14 point ROS are unremarkable. PHYSICAL EXAM: GEN APPEARANCE: Awake, not in acute distress HEENT: NC/AT, PERRLA, moist oral mucosa, (-) throat erythema NECK: Soft, supple, (-) cervical LAD, (-)JVD HEART: S1S2 WNL, RRR, No MRG CHEST: CTA, BL, GAE, No W/R/R ABD: Soft, ND/NT, NABS 4x Q EXT: No C/C/E SKIN: Warm to touch PSYCH: No active psychosis, hallucinations, depression, SI/HI Objective Active Medications: Acetaminophen (Tylenol Tab*) 650 mg PO Q6H PRN PRN Reason: pain/fever Aspirin (Aspirin 81 Mg Chew Tab*) 81 mg PO DAILY [facility] Last Admin: 06/17/18 08:42 Dose: 81 mg Atorvastatin Calcium (Lipitor*) 20 mg PO BEDTIME [facility] Last Admin: 06/16/18 22:24 Dose: 20 mg Cholecalciferol (Vitamin D Tab*) 2,000 units PO DAILY [facility] Last Admin: 06/17/18 08:42 Dose: 2,000 units Cyclobenzaprine HCl (Flexeril Tab*) 10 mg PO TID PRN PRN Reason: Muscle spasms Last Admin: 06/15/18 10:53 Dose: 10 mg Dextrose (D50w Syringe 50 Ml*) 12.5 gm IV PUSH .FOR FS < 60 - SS PRN PRN Reason: FS < 60 Diltiazem HCl (Cardizem Cd Cap*) 240 mg PO DAILY [facility] Last Admin: 06/17/18 08:42 Dose: 240 mg Furosemide (Lasix Tab*) 40 mg PO DAILY [facility] Last Admin: 06/17/18 08:42 Dose: 40 mg Heparin Sodium (Porcine) (Heparin Vial(*)) 5,000 units SUBCUT Q8HR [facility] Last Admin: 06/17/18 13:05 Dose: 5,000 units Insulin Human Lispro (Humalog*) 0 units SUBCUT ACHS [facility]; Protocol Last Admin: 06/17/18 13:04 Dose: 3 units Levothyroxine Sodium (Synthroid Tab*) 75 mcg PO DAILY@0600 [facility] Last Admin: 06/17/18 06:22 Dose: 75 mcg Lorazepam (Ativan Tab(*)) 1 mg PO QID PRN PRN Reason: ANXIETY Last Admin: 06/17/18 13:05 Dose: 1 mg Losartan Potassium (Cozaar Tab*) 50 mg PO DAILY [facility] Last Admin: 06/17/18 08:43 Dose: 50 mg Metformin HCl (Glucophage*) 500 mg PO BEDTIME [facility] Last Admin: 06/16/18 22:40 Dose: 500 mg Metformin HCl (Glucophage*) 1,000 mg PO DAILY [facility] Last Admin: 06/17/18 08:43 Dose: 1,000 mg Methocarbamol (Robaxin Tab*) 500 mg PO TID [facility] Last Admin: 06/17/18 13:04 Dose: 500 mg Multivitamins ( Vitamin Tab*) 1 tab PO DAILY [facility] Last Admin: 06/17/18 08:42 Dose: 1 tab Oxycodone HCl (Roxycodone Tab*) 15 mg PO Q4H PRN PRN Reason: PAIN Last Admin: 06/17/18 14:35 Dose: 15 mg Polyethylene Glycol/Electrolytes (Miralax*) 17 gm PO DAILY PRN PRN Reason: CONSTIPATION Polyvinyl Alcohol (Polyvinyl Alcohol 1.4% Opth*) 1 drop BOTH EYES Q2H PRN PRN Reason: DRY EYE Last Admin: 06/14/18 01:37 Dose: 1 applic Senna (Senokot Tab*) 2 tab PO BID [facility] Last Admin: 06/17/18 08:42 Dose: 2 tab Zolpidem Tartrate (Ambien Tab*) 10 mg PO BEDTIME PRN PRN Reason: SLEEP Last Admin: 06/16/18 22:41 Dose: 10 mg Vital Signs - 8 hr 06/17/18 06/17/18 06/17/18 10:50 11:13 11:36 Temperature 98.8 F Pulse Rate 79 Respiratory 18 18 18 Rate Blood Pressure 119/60 (mmHg) O2 Sat by Pulse 94 Oximetry 06/17/18 06/17/18 06/17/18 13:04 13:05 14:35 Temperature Pulse Rate Respiratory 16 16 16 Rate Blood Pressure (mmHg) O2 Sat by Pulse Oximetry 06/17/18 15:44 Temperature Pulse Rate Respiratory 14 Rate Blood Pressure (mmHg) O2 Sat by Pulse Oximetry Oxygen Devices in Use Now: None Result Diagrams: 06/15/18 06:25 06/13/18 07:14 Microbiology and Other Data: . Assess/Plan/Problems-Billing Assessment: Ms Barragan is a 63 yr old female with pmh of obesity, DM2, HLD, HTN, CAD, hypothyroid; who presented to the ED with back pain after turning in her chair. - Patient Problems (1) Back pain Current Visit: Yes Status: Acute Code(s): M54.9 - DORSALGIA, UNSPECIFIED SNOMED Code(s): 226094926 Comment: -Will add low dose Methocarbamol for synergy -Continue current pain meds -CT lumbar spine with no cord compression or acute finding. -Physical therapy consult appreciated -Reports she cannot manage at home with pain, therefore, interested in subacute rehab (2) CHF (congestive heart failure) Current Visit: No Status: Acute Code(s): I50.9 - HEART FAILURE, UNSPECIFIED SNOMED Code(s): 78766179 Comment: - No evidence of acute exacerbation (3) Anxiety Current Visit: No Status: Acute Code(s): F41.9 - ANXIETY DISORDER, UNSPECIFIED SNOMED Code(s): 75968514 Comment: - Continue Lorazepam. (4) Chronic pain Current Visit: No Status: Acute Code(s): G89.29 - OTHER CHRONIC PAIN SNOMED Code(s): 96537339 Comment: - Continue home dose of oxycodone (5) Diabetes Current Visit: No Status: Acute Code(s): E11.9 - TYPE 2 DIABETES MELLITUS WITHOUT COMPLICATIONS SNOMED Code(s): 33107309 Comment: - BG well controlled - Cont SS lispro and metformin (6) High cholesterol Current Visit: No Status: Acute Code(s): E78.00 - PURE HYPERCHOLESTEROLEMIA , UNSPECIFIED SNOMED Code(s): 95026972 Comment: - Cont statin (7) Hypertension Current Visit: No Status: Acute Code(s): I10 - ESSENTIAL (PRIMARY) HYPERTENSION SNOMED Code(s): 67674613 Comment: - Cont Cardizem, Arb, and Furosemide (8) Hypothyroidism Current Visit: No Status: Acute Code(s): E03.9 - HYPOTHYROIDISM, UNSPECIFIED SNOMED Code(s): 45741492 Comment: - Continue synthroid. (9) DVT prophylaxis Current Visit: No Status: Acute Code(s): FUQ9421 - SNOMED Code(s): 696127556 Comment: - HSQq8H Status and Disposition: -D/C to [place] in AM -Pt refused to be D/Cd today and appealing o/n stay; will defer
[2018-06-17] MEDS: metFORMIN* 500 MG TAB PO SCH (21:38)
[2018-06-17] MEDS: Atorvastatin* 20 MG TAB PO SCH (21:38)
[2018-06-17] MEDS: Zolpidem TAB* 10 MG PO PRN (22:02)
[2018-06-18] MEDS: oxyCODONE TAB* 5 MG TAB PO PRN ×5 (03:21→21:39)
[2018-06-18] MEDS: Heparin VIAL(*) 5000 UNITS/ML VIAL (FIVE THOUSAND) SUBCUT SCH ×3 (05:23→21:39)
[2018-06-18] MEDS: LORazepam TAB(*) 1 MG PO PRN ×3 (05:23→21:40)
[2018-06-18] MEDS: Levothyroxine TAB* 75 MCG TAB PO SCH (05:24)
[2018-06-18] MEDS: Cyclobenzaprine TAB* 10 MG PO PRN ×2 (05:24→21:40)
[2018-06-18] MEDS: Insulin LISPRO* 1 UNITS UNIT SUBCUT SCH ×4 (08:31→21:41)
[2018-06-18] MEDS: Prenatal Vitamin TAB PO SCH (08:42)
[2018-06-18] MEDS: metFORMIN* 1,000 MG TAB PO SCH (08:42)
[2018-06-18] MEDS: Senna TAB PO SCH ×2 (08:43→21:40)
[2018-06-18] MEDS: Aspirin 81 mg CHEW TAB* 81 MG TAB.CHEW PO SCH (08:44)
[2018-06-18] MEDS: Cholecalciferol TAB* 1000 UNITS PO SCH (08:44)
[2018-06-18] MEDS: Methocarbamol TAB* 500 MG PO SCH ×3 (08:45→21:39)
[2018-06-18] MEDS: Losartan TAB* 25 MG PO SCH (08:46)
[2018-06-18] MEDS: Diltiazem CD CAP* 240 MG PO SCH (08:46)
[2018-06-18] MEDS: Furosemide TAB* 40 MG PO SCH (08:47)
--- NOTE | 2018-06-18 12:59 | DS ---
DATE OF ADMISSION: 06/14/2018. DATE OF DISCHARGE: 06/18/2018. DISCHARGE DIAGNOSES: 1. Severe back pain, musculoskeletal. 2. History of CHF. 3. History of anxiety. DISCHARGE MEDICATIONS: 1. Tylenol 650 mg p.o. q.6 prn. 2. Artificial Tears one drop to both eyes q.2 hours prn. 3. Aspirin 81 mg p.o. daily. 4. Cholecalciferol 2,000 units p.o. daily. 5. Cyclobenzaprine 10 mg p.o. t.i.d. prn. 6. Diltiazem 240 mg p.o. daily. 7. Lasix 40 mg p.o. daily. 8. Irbesartan 150 mg p.o. daily. 9. Levothyroxine 75 mcg p.o. daily. 10. Lorazepam 1 mg p.o. q.i.d. prn. 11. Metformin 500 mg p.o. at bedtime. 12. Methocarbamol 500 mg p.o. t.i.d. scheduled. 13. Multivitamin one tab p.o. daily. 14. Oxycodone 15 mg p.o. q.4 prn. 15. Polyethylene Glycol 17 gm p.o. daily prn. 16. Senna two tabs p.o. b.i.d. 17. Simvastatin 40 mg p.o. at bedtime. 18. Zolpidem 10 mg p.o. at bedtime. 19. Tylenol 975 mg p.o. b.i.d. 20. Lidocaine patch one patch daily. 21. Pantoprazole 40 mg p.o. daily. 22. Gabapentin 100 mg p.o. t.i.d. HISTORY OF PRESENT ILLNESS/HOSPITAL COURSE: The patient is a 63-year-old, lady with a history of morbid obesity, type 2 diabetes mellitus, and hyperlipidemia who was admitted on 06/02/2018 due to intractable severe back pain. The following day, she had a noncontrast CT of the lumbar spine which showed multilevel laminectomy and spinal fusion throughout the lower thoracic and lumbar spine, and also shows neural foraminal narrowing with no osseous central canal stenosis. Thought to be due to musculoskeletal pain primary, although dorsal nerve compression due to foraminal narrowing is not excluded. The patient improved somewhat with the additional of Methocarbamol in addition to prn Cyclobenzaprine and Tylenol; however, she still complains of some significant the day of her discharge and hence, the patient had been prescribed a lidocaine patch as well as Gabapentin low dose 100 mg p.o. t.i.d. which certainly can be titrated as an outpatient for synergy and will defer with Marilia on this note. She had been advised and follow-up and/or call her PCP within three days post DC , to call her PCP or facility MD is she needs more controlled pain meds, and she was advised that if her symptoms resume or develop new ones, or feel unwell for any reason, to call her PCP first. If her PCP cannot entertain her due to scheduling issues alone, to call the [facility] if the issue is nonemergent. She was advised to call my office regarding any questions, concerns, or further clarifications regarding her discharge plans and her prescriptions, and to take her medications as prescribed. REVIEW OF SYSTEMS: The patient complained of back pain as described above at the level of 7/10, sometimes goes up to 8/10. Other than this, all the 14 point review of systems are otherwise unremarkable. PHYSICAL EXAMINATION: General Appearance: The patient is awake, alert and oriented times three, not in acute distress. Vital Signs: Most recent vital signs of record: Blood pressure 125/52 from previous of 123/58 and 127/59, 18 per minute respiratory, saturating at 94 percent room air, 97.1 degrees Fahrenheit. HEENT: Normocephalic, atraumatic. PERRLA. Extraocular muscles intact. Negative for icterus. Moist oral mucosa. Negative throat erythema. Neck: Soft, supple with no cervical lymphadenopathy. No JVD. Heart: S1, S2 within normal limits. Regular rate and rhythm. No murmurs, rubs, or gallops. Chest: Clear to auscultation bilaterally. Good air entry. No wheezes, rales, or rhonchi. Abdomen: Soft, nondistended, nontender. Normoactive bowel sounds times four. Extremities: No cyanosis, clubbing, or edema. Psychiatric: No active psychosis, depression, suicidal nor homicidal ideation. Skin: Warm to touch. [id number]/[facility] #: [id number] [facility]
[2018-06-18] MEDS: Atorvastatin* 20 MG TAB PO SCH (21:40)
[2018-06-18] MEDS: metFORMIN* 500 MG TAB PO SCH (21:40)
[2018-06-18] MEDS: Zolpidem TAB* 10 MG PO PRN (21:40)
[2018-06-19] MEDS: oxyCODONE TAB* 5 MG TAB PO PRN ×2 (02:44→07:48)
[2018-06-19] MEDS: Heparin VIAL(*) 5000 UNITS/ML VIAL (FIVE THOUSAND) SUBCUT SCH ×2 (05:11→05:13)
[2018-06-19] MEDS: Levothyroxine TAB* 75 MCG TAB PO SCH (05:11)
[2018-06-19 06:45] VITALS: BP 141/66
[2018-06-19] MEDS: LORazepam TAB(*) 1 MG PO PRN (07:50)
[2018-06-19] MEDS: Methocarbamol TAB* 500 MG PO SCH (07:50)
[2018-06-19] MEDS: Cholecalciferol TAB* 1000 UNITS PO SCH (07:51)
[2018-06-19] MEDS: Senna TAB PO SCH (07:51)
[2018-06-19] MEDS: Prenatal Vitamin TAB PO SCH (07:52)
[2018-06-19] MEDS: Losartan TAB* 25 MG PO SCH (07:52)
[2018-06-19] MEDS: metFORMIN* 1,000 MG TAB PO SCH (07:53)
[2018-06-19] MEDS: Aspirin 81 mg CHEW TAB* 81 MG TAB.CHEW PO SCH (07:53)
[2018-06-19] MEDS: Diltiazem CD CAP* 240 MG PO SCH (07:53)
[2018-06-19] MEDS: Insulin LISPRO* 1 UNITS UNIT SUBCUT SCH (07:54)
[2018-06-19] MEDS: Furosemide TAB* 40 MG PO SCH (07:54)
== END 2018-06-19 09:25 | DRG 552 ==
LOC: ED 19:29 → MED 06-12 01:11 → OBSVTOIN 06-14 14:59 → MED 06-17 22:02
PROVIDERS: ADMIT Internal Medicine; ATTEND Internal Medicine
DX: M54.9 Dorsalgia, unspecified (principal); Z68.41 Body mass index [BMI] 40.0-44.9, adult; I11.0 Hypertensive heart disease with heart failure; I50.9 Heart failure, unspecified; E66.01 Morbid (severe) obesity due to excess calories; E11.9 Type 2 diabetes mellitus without complications; E78.5 Hyperlipidemia, unspecified; I25.10 Atherosclerotic heart disease of native coronary artery without angina pectoris; E03.9 Hypothyroidism, unspecified; G89.29 Other chronic pain; F41.9 Anxiety disorder, unspecified; Z96.653 Presence of artificial knee joint, bilateral; Z96.641 Presence of right artificial hip joint; Z95.0 Presence of cardiac pacemaker; Z79.84 Long term (current) use of oral hypoglycemic drugs; Z79.1 Long term (current) use of non-steroidal anti-inflammatories (NSAID); Z79.82 Long term (current) use of aspirin; Z79.891 Long term (current) use of opiate analgesic; Z79.899 Other long term (current) drug therapy; Z88.6 Allergy status to analgesic agent; Z88.0 Allergy status to penicillin; Z88.2 Allergy status to sulfonamides; Z88.8 Allergy status to other drugs, medicaments and biological substances; Z82.49 Family history of ischemic heart disease and other diseases of the circulatory system
CPT/HCPCS: 36415; 72131; 80048; 80053; 81003; 81015; 83735; 85025; 85610; 85730; 86140; 87086; 87641; 96372; 99283; A9270-GY; G0378; G8978-GP-CL; G8979-GP-CH; J1644; J2270; J3475

== ENCOUNTER 2018-08-29 07:02 | Inpatient (IN) | payer MEDICARE, MEDICAID ==
--- NOTE | 2018-08-29 07:28 | ED ---
HPI Chest Pain - HPI Summary HPI Summary: This patient is a 63 year old F brought in by EMS with a chief complaint of pressure CP since 04:00 this morning while trying to sleep. The patient rates the pain 2/10 in severity. Patient reports right hip pain and back pain. Patient denies injury, urinary problems, or fecal dysfunction. She was given 4 baby aspirin and a Nitro en route, which helped with the pain. She has had a surgery on her right hip and back, leading to chronic pain, in [address] De La Cruz. The patient last took her medications yesterday and she takes them in the morning. The patient has had this same CP a couple months ago. Her last stress test was a couple years ago. PMHX HTN, diabetes, HLD, chronic back pain. No PMHx NC, stents. Vitals in the room: HR 60 bpm, BP 152/80. - History of Current Complaint Chief Complaint: EDChestPainROMI Time Seen by Provider: 08/29/18 07:08 Hx Obtained From: Patient Onset/Duration: Started Hours Ago - 0400 Current Severity: Mild Pain Intensity: 2 Pain Scale Used: 0-10 Numeric Character: Pressure/Squeezing Associated Signs and Symptoms: Positive: Chest Pain, Back Pain - Additional Pertinent History Primary Care Physician: [id number] - Allergy/Home Medications Allergies/Adverse Reactions: Allergies Allergy/AdvReac Type Severity Reaction Status Date / Time cefazolin [From Ancef] Allergy Unknown Verified 08/29/18 08:23 Reaction Details citalopram [From Celexa] Allergy Insomnia Verified 08/29/18 08:23 naproxen Allergy Vomiting Verified 08/29/18 08:23 NSAIDS (Non-Steroidal Allergy GI Upset Verified 08/29/18 08:23 Anti-Inflamma Penicillins Allergy Rash Verified 08/29/18 08:23 Sulfa (Sulfonamide Allergy Unknown Verified 08/29/18 08:23 Antibiotics) Reaction Details zaleplon [From Sonata] Allergy Insomnia Verified 08/29/18 08:23 Home Medications: Home Medications Irbesartan (NF) [Avapro (NF)] 150 mg PO QAM 08/29/18 [History Confirmed 08/29/18 ] PMH/Surg Hx/FS Hx/Imm Hx Endocrine/Hematology History: Reports: Hx Blood Transfusions, Hx Diabetes, Hx Thyroid Disease Denies: Hx Anticoagulant Therapy, Hx Blood Disorders, Hx Bone Marrow Disease , Hx Systemic Lupus Erythematosus, Hx Sickle Cell Disease, Hx Anemia, Hx Unexplained Bleeding Cardiovascular History: Reports: Hx Angina, Hx Auto Implanted Cardiovert Defib, Hx Cardiomegaly - SINCE IN HER TEENS, Hx Congestive Heart Failure, Hx Deep Vein Thrombosis, Hx Embolism, Hx Hypertension, Hx Pacemaker/ICD, Other Cardiovascular Problems/Disorders - pericarditis Denies: Hx Coronary Artery Disease, Hx Hypercholesterolemia, Hx Myocardial Infarction, Hx Peripheral Vascular Disease, Hx Valvular Heart Disease Respiratory History: Reports: Hx Chronic Bronchitis, Hx Pneumonia, Other Respiratory Problems/Disorders - sob associated - inspiratory pain left ribs, abdominal distention per pt Denies: Hx Asthma, Hx Chronic Obstructive Pulmonary Disease (COPD) GI History: Reports: Hx Gastroesophageal Reflux Disease, Hx Irritable Bowel, Other GI Disorders - ABDOMEN DISTENDED, IBS Denies: Hx Cirrhosis, Hx Ulcer History: Denies: Hx Dialysis, Hx Renal Disease Musculoskeletal History: Reports: Hx Back Problems - back surgery x 3, Hx Orthopedic Injury - knee, hip surgery hx, Other Musculoskeletal History - knee, hip surgery hx Denies: Hx Bursitis, Hx Congenital Bone Abnormalities, Hx Fibromyalgia, Hx Gout, Hx Osteoporosis, Hx Scoliosis, Hx Tendonitis Sensory History: Reports: Hx Contacts or Glasses Denies: Hx Cataracts, Hx Eye Injury, Hx Eye Prosthesis, Hx Glaucoma, Hx Macular Degeneration, Hx Vision Problem, Hx Deafness, Hx Hearing Aid, Hx Hearing Problem, Other Sensory Impairments Opthamlomology History: Reports: Hx Contacts or Glasses Denies: Hx Cataracts, Hx Eye Injury, Hx Eye Prosthesis, Hx Glaucoma, Hx Macular Degeneration, Hx Vision Problem, Other Sensory Impairments Neurological History: Denies: Hx Dementia, Hx Developmental Delay, Hx Headaches, Hx Migraine, Hx Seizures, Hx Spinal Cord Injury, Hx Transient Ischemic Attacks (TIA), Other Neuro Impairments/Disorders - LOC WITH [facility] Psychiatric History: Reports: Hx Anxiety Denies: Hx Attention Deficit Hyperactivity Disorder, Hx Eating Disorder, Hx Depression, Hx Panic Disorder, Hx Post Traumatic Stress Disorder, Hx Inpatient Treatment, Hx Schizophrenia, Hx Bipolar Disorder, Hx Suicide Attempt, Hx Substance Abuse, Other Psychiatric Issues/Disorders - Cancer History Cancer Type, Location and Year: skin cancer on right leg, removed Hx Chemotherapy: No Hx Radiation Therapy: No - Surgical History Surgery Procedure, Year, and Place: left shoulder surgery Feb 13 2014 csections x 3. partial hysterectomy. 3 back surgeries, hardwear in place. right hip REPLACEMENT. LEFT KNEE RECONSTRUCTION. PACEMAKER PLACED-ISAURO- 2011. 3 C-SECTIONS. RIGHT SHOULDER ROTATOR CUFF REPAIR - 15 YEARS AGO. UMBILICAL HERNIA REPAIR Hx Anesthesia Reactions: Yes - PROPOFOL REACTION- THRASHING AND SCREAMING - Immunization History Date of Tetanus Vaccine: utd Date of Influenza Vaccine: utd Infectious Disease History: No Infectious Disease History: Reports: Hx Clostridium Difficile, Hx of Known/ Suspected MRSA Denies: Hx Hepatitis, Hx Human Immunodeficiency Virus (HIV), Hx Shingles, Hx Tuberculosis, Traveled Outside the [place] in Last 30 Days - Family History Known Family History: Positive: Cardiac Disease - CAD, Diabetes, Other - Breast CA - Social History Alcohol Use: None Hx Substance Use: No Substance Use Type: Reports: None Hx Tobacco Use: No Smoking Status (MU): Never Smoked Tobacco Have You Smoked in the Last Year: No Review of Systems Positive: Chest Pain Positive: Other - no fecal dysfunction Positive: no symptoms reported Positive: Myalgia - back pain, right hip pain All Other Systems Reviewed And Are Negative: Yes Physical Exam - Summary Physical Exam Summary: VITAL SIGNS: Reviewed. GENERAL: Patient is an obese female who is lying comfortable in the stretcher. Patient is not in any acute respiratory distress. HEAD AND FACE: No signs of trauma. No ecchymosis, hematomas or skull depressions. No sinus tenderness. EYES: PERRLA, EOMI x 2, No injected conjunctiva, no nystagmus. EARS: Hearing grossly intact. Ear canals and tympanic membranes are within normal limits. MOUTH: Oropharynx within normal limits. NECK: Supple, trachea is midline, no adenopathy, no JVD, no carotid bruit, no c- spine tenderness, neck with full ROM. CHEST: Symmetric, no tenderness at palpation LUNGS: Clear to auscultation bilaterally. No wheezing or crackles. CVS: Regular rate and rhythm, S1 and S2 present, no murmurs or gallops appreciated. ABDOMEN: Soft, non-tender. No signs of distention. No rebound no guarding, and no masses palpated. Bowel sounds are normal. EXTREMITIES: FROM in all major joints, no edema, no cyanosis or clubbing. Decreased ROM in the right hip due to pain. No deformity. No ecchymosis. No hematomas. Paraspinal muscle tenderness in lumbar spine on both sides. NEURO: Alert and oriented x 3. No acute neurological deficits. Speech is normal and follows commands. SKIN: Dry and warm Triage Information Reviewed: Yes Vital Signs On Initial Exam: Initial Vitals Temp Pulse Resp BP Pulse Ox 98.4 F 60 18 152/80 93 08/29/18 07:14 08/29/18 07:14 08/29/18 07:14 08/29/18 07:14 08/29/18 07:14 Vital Signs Reviewed: Yes Diagnostics - Vital Signs Vital Signs Temp Pulse Resp BP Pulse Ox 08/29/18 07:14 98.4 F 60 18 152/80 93 - Laboratory Result Diagrams: 08/29/18 08:03 08/29/18 08:03 Lab Statement: Any lab studies that have been ordered have been reviewed, and results considered in the medical decision making process. - Radiology CXR Radiology Interpretation Completed By: Radiologist Summary of Radiographic Findings: No radiographic evidence of acute cardiopulmonary disease. ED physican has reviewed this report L-spine x ray Radiology Interpretation Completed By: Radiologist Summary of Radiographic Findings: There is fractured spinal hardware as described above as well as advanced degenerative changes of the lower thoracic and lumbar spine. There is grade 2 anterolisthesis of L5 over S1. Without any prior imaging available for comparison, the chronicity of this fractured hardware is unknown. ED physician has reviewed this report hip/pelvis x ray Radiology Interpretation Completed By: Radiologist Summary of Radiographic Findings: 1. Anatomic alignment of right hip prosthesis without radiographically apparent. periprosthetic fracture or loosening. 2. Fractured spinal hardware of unknown chronicity. ED physician has reviewed this report l-spine Radiology Interpretation Completed By: Radiologist Summary of Radiographic Findings: Postoperative and degenerative changes as described above similar in appearance to the. February 11, 2017 lumbar spine radiograph. Flexion and extension views do not reveal any. definite instability. ED physicain has reviewed this report. scoliosis Radiology Interpretation Completed By: Radiologist Summary of Radiographic Findings: The postsurgical and degenerative changes described above not appear to change. significantly since the February 11, 2017 lumbar spine radiograph. ED physician has reviewed this report - CT l-spine CT Interpretation Completed By: Radiologist Summary of CT Findings: CT examination of the thoracic and lumbar spine demonstrates degenerative and. postsurgical changes that do not appear significantly changed when compared to the CTA of. the chest dated January or the CT of the abdomen and pelvis dated August 232015. These findings include what appear to be fracture or hardware unchanged from prior. imaging. There is no CT apparent acute fracture or dislocation. ED physician has reviewed this report. t-spine CT Interpretation Completed By: Radiologist Summary of CT Findings: CT examination of the thoracic and lumbar spine demonstrates degenerative and. postsurgical changes that do not appear significantly changed when compared to the CTA of. the chest dated January or the CT of the abdomen and pelvis dated August 232015. These findings include what appear to be fracture or hardware unchanged from prior. imaging. There is no CT apparent acute fracture or dislocation. ED physician has reviewed this report. - EKG 07:17 Cardiac Rate: NL - 60 bpm EKG Rhythm: Sinus Rhythm ST Segment: Normal EKG Comparison: No Significant Change - 05/20/18 Summary of EKG Findings: T wave inversions AVL, V5, B6 Re-Evaluation - Re-Evaluation First Eval Re-Evaluation Time: 10:50 Comment: Charge nurse, Juany, informed us that the fracture seen on imaging is chronic and present on films from two years ago. Chest Pain Course/Dx - Course Assessment/Plan: This patient is a 63-year-old female who presents to the emergency department with chief complaint of chronic back pain and hip pain which she has exacerbated since last night. She denies any history of heavy lifting or trauma. She also developed chest pain which she reports as an elephant sitting on my chest. EKG is a normal sinus rhythm with no ST elevations. EKG is similar to previous EKG done in the ER. Blood work without any significant abnormality except for chloride 100, glucose 138, magnesium of 1.5 for which the patient was given magnesium IV 1 g. AST is 54, alkaline phosphatase 121 and BNP is 227. Lumbar spine x ray IMPRESSION: There is fractured spinal hardware as described above as well as advanced degenerative changes of the lower thoracic and lumbar spine. There is grade 2 anterolisthesis of L5 over S1. Without any prior imaging available for comparison, the chronicity of this fractured hardware is unknown. Hip x-ray IMPRESSION: 1. Anatomic alignment of right hip prosthesis without radiographically apparent. periprosthetic fracture or loosening. 2. Fractured spinal hardware of unknown chronicity. CXR IMPRESSION: No radiographic evidence of acute cardiopulmonary disease. In the ED course the patient was given morphine for the pain. I discussed my physical exam and findings with Dr. Camarena from neurosurgery and he recommends for the patient to get an upright x-ray with flexion and extension of the lumbar spine, has CT of the lumbar spine without contrast, an MRI of the lumbar spine with and without contrast. He will consult for this patient. At this point I discussed my physical exam and findings with Dr. Escobar from the hospitalist services who will be admitting the patient to his services for further workup and management. Patient is hemodynamically stable alert and oriented 3. The images will be follow-up with Dr. Camarena and Dr. Escobar - Diagnoses Provider Diagnoses: Back pain, Chest pain - Provider Notifications Discussed Care Of Patient With: Junior Escobar Time Discussed With Above Provider: 10:36 Instructed by Provider To: Admit As Inpatient Discharge - Sign-Out/Discharge Documenting (check all that apply): Patient Departure - admission All imaging exams completed and their final reports reviewed: Yes Patient Received Moderate/Deep Sedation with Procedure: No - Discharge Plan Condition: Fair Disposition: ADMITTED TO [facility] - Billing Disposition and Condition Condition: FAIR Disposition: Admitted to [facility] - Attestation Statements Document Initiated by Scribe: Yes Documenting Scribe: Layton Machado Provider For Whom Katelyn is Documenting (Include Credential): Troy Bourne MD Scribe Attestation: I, Layton Machado, scribed for Troy Bourne MD on 08/29/18 at 1822. Scribe Documentation Reviewed: Yes Provider Attestation: The documentation as recorded by the Layton espino accurately reflects the service I personally performed and the decisions made by me, Troy Bourne MD Status of Scribe Document: Viewed Consult Consult: I spoke with Dr. Camarena at 10:25 and he recommended additional testing and admission I spoke with Dr. Camarena at 12:23 and he said that this is a chronic finding and he will come to the ED for a consult with the patient.
[2018-08-29 08:13] LABS: ABS Basophils 0 10^3/ul (0-0.2); ABS Eosinophils 0 10^3/ul (0-0.6); ABS Lymphocytes 1.5 10^3/ul (1.0-4.8); ABS Monocytes 0.5 10^3/ul (0-0.8); ABS Neutrophils 3.2 10^3/ul (1.5-7.7); ABS Nucleated RBC 0 10^3/ul; Eosinophil % 0.5 %; Hematocrit 37 % (33-41); Hemoglobin 12.2 g/dL (12.0-16.0); Lymphocyte % 27.8 %; Mean Corpuscular HGB Conc 33 g/dL (31-36); Mean Corpuscular Hemoglobin 31 pg (27-31); Mean Corpuscular Volume 93 fL (80-97); Nucleated Red Blood Cells % 0; Platelet Count 395 10^3/uL (150-450); Red Blood Count 3.98 10^6 /uL (3.70-4.87); Red Cell Distribution Width 16 % (10.5-15); White Blood Count 5.3 10^3/uL (3.5-10.8)
[2018-08-29] MEDS ORDERED: Morphine 4 MG/ML VIAL (1 ml) 4 MG/ML VIAL IV ONE ×2 (08:25→10:12)
[2018-08-29 08:31] LABS: Albumin 3.6 g/dL (3.2-5.2); BUN/Creatinine Ratio 13.4 (8-20); Calcium 8.8 mg/dL (8.6-10.3); EGFR African American 106.9 (>60); EGFR Non-African American 88.3 (>60); Globulin 3.5 g/dL (2-4); Magnesium 1.5 mg/dL (1.9-2.7); Potassium 3.5 mmol/L (3.5-5.0); Total Bilirubin 0.4 mg/dL (0.2-1.0); Total Protein 7.1 g/dL (6.4-8.9)
[2018-08-29 08:34] LABS: Troponin I 0.02 ng/mL (<0.04)
[2018-08-29 08:36] LABS: CKMB ng/mL 2.8 ng/mL (0.6-6.3)
[2018-08-29] MEDS ORDERED: Magnesium Sulfate 1 GM IV* 1 GM/100 ML BAG IV ONE (09:16)
[2018-08-29] MEDS ORDERED: Magnesium Sulfate 2 GM IV* 2 GM/50 ML BAG IVPB ONE (10:47)
[2018-08-29 12:04] LABS: TSH (Thyroid Stimulating Horm) 0.13 mcIU/mL (0.34-5.60)
[2018-08-29] MEDS ORDERED: Nitro 2% OINT* (Nitroglycerin) 1 INCH/PAK PAK TOPICAL ONE (12:54)
[2018-08-29] MEDS ORDERED: Diltiazem CD CAP* 240 MG PO SCH (13:00)
[2018-08-29] MEDS ORDERED: Atorvastatin* 20 MG TAB PO SCH (13:00)
[2018-08-29] MEDS ORDERED: Acetaminophen TAB* 325 MG PO PRN (13:17)
[2018-08-29 13:44] LABS: HDL Cholesterol 34.4 mg/dL
[2018-08-29] MEDS: Lidocaine PATCH 5%* 1 PATCH TRANSDERM SCH (14:14)
[2018-08-29] MEDS: Enoxaparin(*) 40 MG/0.4 ML SYR SUBCUT SCH (14:15)
[2018-08-29] MEDS: oxyCODONE TAB* 5 MG TAB PO PRN ×3 (14:16→22:44)
[2018-08-29] MEDS: Cyclobenzaprine TAB* 10 MG PO PRN ×3 (14:16→22:44)
[2018-08-29] MEDS: Losartan TAB* 25 MG PO SCH (14:17)
[2018-08-29] MEDS: Metoprolol Tartrate TAB* 25 MG PO SCH ×2 (14:17→19:47)
[2018-08-29] MEDS: Gabapentin CAP(*) 100 MG PO SCH ×2 (14:17→19:32)
[2018-08-29 17:21] LABS: Urine Appearance Cloudy; Urine Bacteria Absent (Absent); Urine Bilirubin Negative (Negative); Urine Blood Negative (Negative); Urine Color Yellow; Urine Glucose 3+(>=500 mg/dL) (Negative); Urine Ketones Trace (Negative); Urine Nitrite Negative (Negative); Urine Protein 1+(30 mg/dL) (Negative); Urine Red Blood Cell Absent (Absent); Urine Specific Gravity 1.021 (1.010-1.030); Urine Squamous Epithelial Cell Present (Absent); Urine Transitional Epithelial Present (Absent); Urine Urobilinogen Negative (Negative); Urine White Blood Cell 2+(11-20/hpf) (Absent)
[2018-08-29] MEDS: Atorvastatin* 80 MG TAB PO SCH (17:31)
[2018-08-29] MEDS: Lidocaine Patch REMOVE* 1 NOTE MISC SCH (19:36)
[2018-08-29] MEDS: LORazepam TAB(*) 1 MG PO PRN (19:43)
[2018-08-29] MEDS: Zolpidem TAB* 10 MG PO PRN (21:36)
--- NOTE | 2018-08-29 21:42 | HP ---
HISTORY AND PHYSICAL: DATE OF ADMISSION: 08/29/18 PRIMARY CARE PHYSICIAN: Dr. Olga Cavanaugh. ADMITTING PROVIDER: Junior Escobar MD CONSULTING NEUROSURGEON: Dr. Xavier Camarena. OUTPATIENT GARMENT EXAMINER: Dr. Abelino Hdez. CHIEF COMPLAINT: [id number] lower back pain with inability to effectively walk; acute in the setting of subacute intermittent chest pressure. HISTORY OF PRESENT ILLNESS: Miriam Barragan is a 63-year-old female with past medical history of chronic back pain, status post laminectomy and fusion hardware with Dr. Curiel of [facility] 4 years ago, on chronic opioid medications; non-insulin dependent diabetes mellitus; hyperlipidemia; hypertension; coronary artery disease; hypothyroidism; syncope, status post pacemaker. She was admitted between 06/12/18 and 06/18/18 also with back pain and at that time attested she had chest pressure and was discharge to [facility] for a few weeks and since has been home. She states she does not like to take all medications for her back pain and wants to see where "she is at." Therefore, she has not been taking many of the medications she was recommended to be discharged with, only taking the oxycodone 15 mg written to 4 hours p.r.n., but she is taking it at q.6. Note that she stopped gabapentin after about 4 weeks. She is not taking the lidocaine patch, Flexeril. She does not like Tylenol because it causes some GI upset. She cannot take NSAIDs because of history of gastric ulcers and denies ever getting methocarbamol at the rehab facility that were recommended discharge medications last admission. She states the pain has been progressively worse over the last several weeks. She also attests that has been keeping her up at night with poor sleep. She says that she also, and this part of her story is slightly muddy as her story is not internally consistent at times, woke up with a sharp chest pressure that first she describes it as a "little bit" and then describes it as an elephant sitting on her chest at 6/10 intensity. She got 4 baby aspirin with EMS and 1 nitroglycerin this improved that pain slightly and she says that her back pain is an aching and throbbing 6/ 10, at rest improves to 3/10, lasting for about 4 hours with her oxycodone 15 mg. Here in [facility], she had an initial troponin of 0.02. She had an EKG which shows some ST depressions and T-wave inversion, but nothing different from her April EKG. BNP was 227. She was afebrile. Of note, her initial imaging evaluation included a lumbar spine x-ray, which demonstrated what is described as a fractured spinal hardware (her transpedicular posterior rubens fixation from the lower thoracic spine into the sacrum with screws pinning the bilateral sacral joints and fracture overlap at the lumbar level posterior fixation rods at the lower lumbar level) as described above, as well as advanced degenerative changes at the lower thoracic and lumbar spine. There is a grade 2 anterolisthesis of L5 over S1 without any prior imaging for comparison of the chronicity of this fracture, hardware is unknown; this is later addended and it was seen this 02/11/17, lumbar spine radiographs showed similar appearance of the spinal hardware including the fracture with at least 1 transpedicular screw and the degree of L5 over S1 anterolisthesis also appeared similar. Consulted with Dr. Camarena of Neurosurgery, who recommended MRIs of the lumbar spine along with lumbar spine CT and scoliosis series x-rays and admission after the chronicity of the fracture was determined. The patient was attempted to be walked again, could only take about 4 steps, and given that she lives alone, is very anxious about her situation, I do not think she was safe for discharge and was re-referred to the hospitalist service again for admission. She also is not able to obtain an MRI because she has non-MRI compliant pacemaker, approximately 6 to 7 years old. She has since received her thoracic spine CTs. The thoracic spine demonstrates generally the postsurgical changes, does not appear significantly changed from 2017 and her lumbar spine CT similarly without change. A scoliosis series x-ray shows postsurgical and degenerative changes without change since January 2017. Her second troponin has now returned 0.02. She attests that she has had diarrhea for the last 4 or 5 days and some stomach upset and has had a poor appetite, not eating much at all. No radiation to her chest pain. She attested chronic shortness of breath at both rest and exertion. She follows up with Dr. Abelino Hdez, last was couple of months ago prior to her May admission. She last saw Dr. Cavanaugh a couple of weeks ago. Says she described her chest pain symptoms to her at that time. PAST MEDICAL HISTORY: Chronic back pain, status post laminectomy, spinal fusion hardware with Dr. Curiel of [facility] 4 years ago; some diastolic CHF; CAD but without stents; non-insulin dependent diabetes mellitus; hyperlipidemia; syncope, status post pacemaker; morbid obesity; chronic opioids for her back pain; hypothyroidism. She has had history of right -sided DVT around 10 years ago in the setting of a 3-week hospitalization for a surgery. PAST SURGICAL HISTORY: Status post bilateral total knee replacement, right hip replacement, , left rotator cuff repair, lumbar laminectomy, and pacemaker placement. MEDICATIONS: Include: 1. Irbesartan 150 mg p.o. q.a.m. 2. Diltiazem 240 mg p.o. daily. 3. Cholecalciferol 2000 units p.o. daily. 4. Aspirin 81 mg p.o. daily. 5. Metformin 1000 mg a.m., 500 mg p.m. 6. Synthroid 75 mcg p.o. daily. 7. Ativan 1 mg p.o. 4 times a day p.r.n. 6. Oxycodone 15 mg p.o. q.4 hours p.r.n. 7. Ambien 10 mg p.o. at bedtime p.r.n. 8. Simvastatin 40 mg p.o. at bedtime. 9. MiraLAX 17 g p.o. daily p.r.n. ALLERGIES: CEFAZOLIN, CITALOPRAM, NAPROXEN, NSAIDS, PENICILLIN (rash), SULFA ( GI upset ), SONATA (insomnia). FAMILY HISTORY: Mother is alive at age 86, has a history of myocardial infarction and open heart surgery. Father at age 67 with 2 heart attacks. SOCIAL HISTORY: She is never smoker, never drinker, no drug use. 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 Her medical surrogate is her mother, Juhi Omer, who lives locally in [place]. She has 3 sons spread across the country and a sister living in [place]. She does desire to be a full code. REVIEW OF SYSTEMS: A complete 14-point review of systems negative except as per HPI. She denies orthopnea. Further review of systems, she denies any antibiotics, any long car trips, any calf pain or tenderness. No air flight. No headaches. No blood in her stools. She has been spitting up some mucus but denies cough. PHYSICAL EXAMINATION GENERAL APPEARANCE: No acute distress. VITAL SIGNS: Temperature 98.6, heart rate 60, respiratory rate 18, satting 93% on 2 L. Her blood pressure 152/80. HEENT: Normocephalic and atraumatic. Pupils equally round and reactive to light. Extraocular motions intact. No scleral icterus. Moist mucus membranes. NECK: Supple. No cervical lymphadenopathy. LUNGS: Clear to auscultation bilaterally with no wheezing, rales, or rhonchi. CARDIOVASCULAR: Regular rate and rhythm. No murmurs, rubs, or gallops. ABDOMEN: Soft, some slight tenderness in the epigastric region. No rebound or guarding. No Ness sign. EXTREMITIES: Warm and well perfused. No peripheral edema. No clear difference in leg circumference. SKIN: No lesions or rashes. NEUROLOGIC: Cranial nerves II through XII intact. Moving all extremities. Strength and sensation intact. DIAGNOSTIC STUDIES/LAB DATA: White count 5.3, hemoglobin 12.2, hematocrit 37, platelets 395. Sodium 139, potassium 3.5, chloride 100, carbon dioxide 30, BUN 9, creatinine 0.67, glucose 138, lactic acid 1.0, magnesium 1.5. Total bili 0.4 , AST 54, ALT 41, alk phos 121. Troponin 0.02 x2. BNP 227. Albumin 3.6. Triglycerides 149, cholesterol 201, LDL 137, HDL 34. TSH 0.13. Imaging: Her initial imaging evaluation included a lumbar spine x-ray, which demonstrated what is described as a fractured spinal hardware (her transpedicular posterior rubens fixation from the lower thoracic spine into the sacrum with screws pinning the bilateral sacral joints and fracture overlap at the lumbar level posterior fixation rods at the lower lumbar level) as described above, as well as advanced degenerative changes at the lower thoracic and lumbar spine. There is a grade 2 anterolisthesis of L5 over S1 without any prior imaging for comparison of the chronicity of this fracture, hardware is unknown; this is later addended and it was seen this 02/11/17, lumbar spine radiographs showed similar appearance of the spinal hardware including the fracture with at least 1 transpedicular screw and the degree of L5 over S1 anterolisthesis also appeared similar. The thoracic spine demonstrates generally the postsurgical changes, does not appear significantly changed from 2017 and her lumbar spine CT similarly without change. A scoliosis series x-ray shows postsurgical and degenerative changes without change since January 2017. Chest x-ray with no acute process. EKG demonstrates T-wave inversions anterolaterally in V3 through V6. There is slight ST elevation in V4 and V3, which is similar in appearance to 05/20/18. Her initial EKG was 07: 17 and repeated at 01:49 and has some slight ST elevations in V1, V2, V3, resolved in V4, ST depression V5 to V6. There are atrial paced complexes with some secondary repolarization abnormalities, also some slight ST elevations in III unchanged from prior. Normal axis. ASSESSMENT AND PLAN: Miriam Barragan is a 63-year-old female with extensive past medical history including chronic back pain; diastolic congestive heart failure ; coronary artery disease, nonobstructive on left heart cath approximately 6 to 7 years ago in [place]; morbid obesity; anxiety; non-insulin dependent diabetes mellitus, presenting with acute on chronic chest pressure of about 3 months now and acute on chronic back pain also worse over the last 4 weeks in the setting of not wanting to take too many pain medications. Seems like her imaging is consistent with a remote history of a posterior fixation rubens fracture at least back from January 2017. We will follow up on Dr. Camarena' evaluation and recommendations. Given the chronicity, it is unclear if any surgical intervention would be pursued and likely not cleared for any surgery at this moment given her description of chest pressure symptoms worse over the last 3 months. I am trending her troponins every 3 hours. I am adding a nitro paste, starting her on beta blockers, and holding her diltiazem and metoprolol tartrate 25 mg q.6 hours. Is continued on telemetry and I think she likely warrants a nuclear stress test Friday, 2 days from now, along with a repeat echocardiogram, last was in November 2017 that showed diastolic dysfunction, preserved EF of 55% to 60%. Her BNP is slightly elevated from her baseline at 227, up from 45. She is on Lasix 40 mg daily for that and that will be continued. Relatively euvolemic on exam. TSH is low. For her hypothyroidism, I am going to decrease Synthroid 75 mcg daily to 50 mcg daily and repeat in 4 to 6 weeks. For her back pain, we will continue her oxycodone 15 mg q.4 hours p.r.n. and placed a lidocaine 5% patch, restart the gabapentin 1 tab 100 mg at t.i.d. dosing, restart Flexeril 10 mg t.i.d., Tylenol p.r.n. and we will get Physical Therapy to work with her. Follow up with Dr. Camarena' recommendations. She seems very interested in pursuing rehabilitation at a subacute rehab facility, [facility], so our concern is anxiety of being alone at home, unable to walk with this pain. Consideration for longer term placement could be considered. For her hyperlipidemia, her lipid panel was checked and is actually not well controlled with LDL 137, HDL 34. Doubled back around and asked her about medication compliance with her simvastatin 40. We will monitor her bowel movement. She denies any recent antibiotics, but given her stomach discomfort and multiple days of diarrhea, I will check a C. diff. She can eat a heart-healthy diet. She is a full code. DVT prophylaxis is Lovenox 40 mg daily. [id number]/CPS #: [id number] MTDD
--- NOTE | 2018-08-29 23:20 | CONS ---
CONSULTATION REPORT: DATE OF CONSULT: 08/29/18 HISTORY OF PRESENT ILLNESS: The patient is a very pleasant 63-year-old female who was brought to the emergency room by EMS for complaints of chest pain. The patient reported at arrival that she has been having 2 or 3 days of back pain radiating to the right hip with difficulty ambulating. Requested to the see the patient by emergency room physician, Dr. Bourne, because of x-ray findings persistent with multilevel thoracolumbar instrumentation with possible rubens fracture. Upon further review of imaging and comparison with a previous CT of abdomen and pelvis from 2017, there is no change in configuration of the hardware and there is no evidence of rubens fracture. In short, the patient has history of previous lumbar fusion in and did well for several years, started experiencing more pain and she was operated in 2015 in [place] by Dr. Curiel. Subsequently, she went to rehabilitation and had a failure of her instrumentation. She returned to the OR, and upon return to the rehabilitation center, she had another hardware failure and returned for third revision. The patient reports that the she did quite well after the last surgery and unfortunately Dr. Curiel left the area. She reports that she has not had any followups from a spine surgeon for these years as she was doing quite well. She also had history of right hip replacement and was seen earlier by Dr. Sanderson for that. She reports now that she has back pain radiating to the right hip and right lower extremity, mostly in the buttock area with the pain started approximately 2 or 3 days ago that was of insidious onset. The pain has made her having difficulties ambulating. She reports that she has no weakness, numbness or tingling in her extremities with the exception of chronic numbness in both feet as the patient has history of diabetic neuropathy. She ambulates with some difficulties because of the right hip pain. She reports that every time she bears weight, she feels the pain. When she is lying on the bed, the pain is significantly improved. She denies denies urinary or GI incontinence. PAST MEDICAL HISTORY: The patient has history of diabetes; thyroid disease; blood transfusions; angina; congestive heart failure; arrhythmias, status post pacemaker placement; hypertension; DVT; pericarditis; chronic bronchitis; chronic respiratory problems; GERD; irritable bowel syndrome; knee and hip surgery; anxiety. PAST SURGICAL HISTORY: The patient has lumbar surgery in and also in 2016 x3. As stated above, has history of right hip surgery, left knee surgery, pacemaker, umbilical hernia repair. FAMILY HISTORY: Coronary artery disease, diabetes, breast CA. 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 She is , lives alone. She has 3 sons in the . Tobacco negative. Alcohol negative. Recreational use negative. PHYSICAL EXAM: The patient is not in acute distress. She is awake, alert, and oriented x3. Her pupils are equal and reactive. Cranial nerves II through XII are grossly intact. Motor 4 to 5/5 in all extremities. Sensory grossly intact to light touch with the exception of decreased sensation in bilateral hips. The patient has history of diabetic neuropathy, she reports. Deep tendon reflexes +1 bilaterally. Left knee not examined because of history of previous surgery. No clonus, no Babinski. Zachary is negative. Straight leg test is negative in the sitting position. The patient has decreased range of motion of the right hip and has pain with internal rotation of the right hip. Her wound is soft, clean, and dry, healed very well. DIAGNOSTIC STUDIES/LAB DATA: The patient had x-ray of her lumbar spine revealing extensive hardware with instrumentation from T11 to pelvis with multiple rubens construction. These findings are similar with previous x-rays. There is overall good alignment of her lumbar spine with the exception of the grade 2 spondylolisthesis at L5-S1. The patient had CT scan of her thoracic and lumbar spine revealing multilevel instrumentation with pedicle screws at T11 , T12, L3, S1 and iliac screws. There is a fractured screw on the left L4 pedicle and there are lamina hooks at L1 and L2 level. There are multiple connecting rods with site connectors as well as crosslink connector. The hardware seems to be unchanged compared to the previous CT scan from 2017. There is a medial trajectory of the thoracic screws. Posterolateral arthrodesis seems adequate. ASSESSMENT: The patient is a very pleasant 63-year-old female with multiple medical problems, including diabetes, hypertension, heart problems and pacemaker with history of multiple lumbar surgeries with thoracolumbar arthrodesis between T11 and the pelvis with complaints of back pain radiating to the right lower extremity. PLAN: The patient at this point has significant difficulties with inability to ambulate that she reports. For this reason, she is currently admitted by Internal Medicine for further workup. Discussed with Dr. Hong regarding imaging findings and these seem to be unchanged compared to the pervious imaging. There is good fusion mass at the levels involved and there is no evidence of obvious proximal junctional kyphosis or failure. With all this in mind, I think that it is not likely that her current symptoms to be related to her chronic back pain, but a CT myelogram might be more helpful in order to further delineate the anatomy and exclude any significant stenosis. Furthermore , the patient may benefit from an orthopedic evaluation for her right hip if needed. We will be happy to follow the patient until a myelogram is done. Thank you very much for allowing us to participate in the care of this patient. Please do not hesitate to contact our office in case you have any further questions or concerns regarding the care of this patient. [id number]/CPS #: [id number] MTDD
[2018-08-30] MEDS: Metoprolol Tartrate TAB* 25 MG PO SCH ×4 (01:06→18:03)
[2018-08-30] MEDS: Cyclobenzaprine TAB* 10 MG PO PRN ×3 (03:30→12:23)
[2018-08-30] MEDS: oxyCODONE TAB* 5 MG TAB PO PRN ×5 (03:31→21:19)
[2018-08-30] MEDS ORDERED: Levothyroxine TAB* 75 MCG TAB PO SCH (06:00)
[2018-08-30] MEDS: Levothyroxine TAB* 50 MCG TAB PO SCH (06:09)
[2018-08-30] MEDS: LORazepam TAB(*) 1 MG PO PRN ×4 (06:15→21:21)
[2018-08-30 07:17] LABS: BUN/Creatinine Ratio 17.6 (8-20); EGFR African American 95.3 (>60); EGFR Non-African American 78.8 (>60); Magnesium 2.1 mg/dL (1.9-2.7)
[2018-08-30] MEDS: Lidocaine PATCH 5%* 1 PATCH TRANSDERM SCH (08:14)
[2018-08-30] MEDS: Losartan TAB* 25 MG PO SCH (08:15)
[2018-08-30] MEDS: Aspirin 81 mg CHEW TAB* 81 MG TAB.CHEW PO SCH (08:17)
[2018-08-30] MEDS: Gabapentin CAP(*) 100 MG PO SCH ×3 (08:17→21:08)
--- NOTE | 2018-08-30 08:39 | PN ---
Progress Note - Progress Note Date of Service: 08/30/18 SOAP: Subjective: []No events ON. Pain improved. Ambulates. Tolerates po well. Objective: []VSS, Afebrile AAOx3, LOLI, CN II-XII grossly intact Motor 4-5/5 Sensory grossly intact to light touch, except chronic decreased zehra feet. Assessment: [] 63 yof hx Q39-hiuhle fusion, back pain and Rt LE pain Plan: []Monitor VS, Neurochecks Pain control. Upright scoliosis XR AP and Lateral entire spine. Consider orthopedic evaluation for Rt hip. CT myelogram T and L spine in am if pain persists. Tadeo Camarena MD
--- NOTE | 2018-08-30 11:57 | PN ---
Subjective Date of Service: 08/30/18 Interval History: Patient is still having back pain on the right side radiating down the outside of the thigh, seemingly along the line of her previous hip replacement. Patient denies any new weakness or numbness/tingling. Patient has stable painful neuropathy in feet. Patient is still having slight abdominal discomfort and had an episode of chest pain in AM which felt like anxiety and resolved with ativan. The pain was in the center of the chest, did not radiate and didn't have associated symptoms. Patient has no saddle anesthesia, bowel or bladder dysfunction. Patient has not had a BM since coming up to the floor. Patient denies F/C, N/V, dizziness, dysuria, or other pain. Family History: Unchanged from Admission Social History: Unchanged from Admission Past Medical History: Unchanged from Admission Objective Active Medications: Acetaminophen (Tylenol Tab*) 650 mg PO Q6H PRN PRN Reason: FEVER/PAIN Aspirin (Aspirin 81 Mg Chew Tab*) 81 mg PO DAILY [facility] Last Admin: 08/30/18 08:17 Dose: 81 mg Atorvastatin Calcium (Lipitor*) 80 mg PO BEDTIME [facility] Last Admin: 08/29/18 17:31 Dose: 80 mg Cyclobenzaprine HCl (Flexeril Tab*) 10 mg PO TID PRN PRN Reason: PAIN Last Admin: 08/30/18 08:15 Dose: 10 mg Enoxaparin Sodium (Lovenox(*)) 40 mg SUBCUT Q24H [facility] Last Admin: 08/29/18 14:15 Dose: 40 mg Gabapentin (Neurontin Cap(*)) 100 mg PO TID [facility] Last Admin: 08/30/18 08:17 Dose: 100 mg Levothyroxine Sodium (Synthroid Tab*) 50 mcg PO DAILY@0600 [facility] Last Admin: 08/30/18 06:09 Dose: 50 mcg Lidocaine (Lidoderm 5% Patch*) 1 patch TRANSDERM DAILY [facility] Last Admin: 08/30/18 08:14 Dose: 1 patch Lorazepam (Ativan Tab(*)) 1 mg PO QID PRN PRN Reason: ANXIETY Last Admin: 08/30/18 06:15 Dose: 1 mg Losartan Potassium (Cozaar Tab*) 50 mg PO QAM [facility] Last Admin: 08/30/18 08:15 Dose: 50 mg Metoprolol Tartrate (Lopressor Tab*) 25 mg PO Q6H [facility] Last Admin: 08/30/18 06:14 Dose: 25 mg Oxycodone HCl (Roxycodone Tab*) 15 mg PO Q4H PRN PRN Reason: PAIN Last Admin: 08/30/18 08:17 Dose: 15 mg Pharmacy Profile Note (Lidocaine Patch Remove*) 1 note N/A 2100 [facility] Last Admin: 08/29/18 19:36 Dose: 1 note Polyethylene Glycol/Electrolytes (Miralax*) 17 gm PO DAILY PRN PRN Reason: CONSTIPATION Senna (Senokot Tab*) 2 tab PO BID PRN PRN Reason: CONSTIPATION Zolpidem Tartrate (Ambien Tab*) 10 mg PO BEDTIME PRN PRN Reason: SLEEP Last Admin: 08/29/18 21:36 Dose: 10 mg Vital Signs - 8 hr 08/30/18 08/30/18 08/30/18 06:07 06:08 06:10 Pulse Rate 60 Respiratory 17 17 Rate Blood Pressure 137/68 (mmHg) 08/30/18 08/30/18 08/30/18 06:15 07:49 08:15 Pulse Rate Respiratory 17 18 18 Rate Blood Pressure (mmHg) 08/30/18 08/30/18 08:17 10:05 Pulse Rate Respiratory 18 16 Rate Blood Pressure (mmHg) Oxygen Devices in Use Now: None Appearance: Patient is a 63yo female who appears stated age and is sitting in the bed in [employer]. Eyes: No Scleral Icterus, PERRLA Ears/Nose/Mouth/Throat: NL Teeth, Lips, Gums, Clear Oropharnyx, Mucous Membranes Moist Neck: NL Appearance and Movements; NL JVP, Trachea Midline Respiratory: Symmetrical Chest Expansion and Respiratory Effort, Clear to Auscultation Cardiovascular: NL Sounds; No Murmurs; No JVD, RRR, No Edema Abdominal: No Hepatosplenomegaly, - - Slight tenderness, hyperactive bowel sounds. Lymphatic: No Cervical Adenopathy Extremities: No Edema, No Clubbing, Cyanosis Skin: No Rash or Ulcers, No Nodules or Sclerosis Neurological: Alert and Oriented x 3, NL Sensation, NL Muscle Strength and Tone , - - CN II-XII intact. Result Diagrams: 08/29/18 08:03 08/30/18 06:26 Assess/Plan/Problems-Billing Assessment: Patient is a 63yo female with a PMH for chronic back pain, HFpEF, CAD, DM II, and provoked DVT who is admitted for intractable back pain, chest pain and diarrhea. Patient's back pain is improving, patient's chest pain is resolved and pending a stress test and patient's diarrhea is improved. - Patient Problems (1) Back pain Current Visit: No Status: Acute Code(s): M54.9 - DORSALGIA, UNSPECIFIED SNOMED Code(s): 943955692 Comment: -Continue current pain meds - Appreciate Neurosurgery input, Hardware functioning well, pending myelogram in AM - Will consult Ortho to assess hip prosthesis pending myelogram. -Physical therapy consult appreciated - Continue Oxycodone, Gabapentin, and Flexeril (2) Chest pain Current Visit: No Status: Resolved Code(s): R07.9 - CHEST PAIN, UNSPECIFIED SNOMED Code(s): 68059407 Comment: - Patient feels as if this is related to anxiety, mild recurrence this AM responded to Ativan - Given elevated MARINO score and characteristics of CP, stress test pending for AM - Continue Metoprolol, Trops negative. (3) CHF (congestive heart failure) Current Visit: No Status: Acute Code(s): I50.9 - HEART FAILURE, UNSPECIFIED SNOMED Code(s): 59038261 Comment: - No evidence of acute exacerbation (4) Diabetes Current Visit: No Status: Acute Code(s): E11.9 - TYPE 2 DIABETES MELLITUS WITHOUT COMPLICATIONS SNOMED Code(s): 88351014 Comment: - BG well controlled - Cont SS lispro - Hold metformin in case cath or surgery is needed. (5) High cholesterol Current Visit: No Status: Acute Code(s): E78.00 - PURE HYPERCHOLESTEROLEMIA , UNSPECIFIED SNOMED Code(s): 85352467 Comment: - Cont statin, poorly controlled (6) Hypothyroidism Current Visit: No Status: Acute Code(s): E03.9 - HYPOTHYROIDISM, UNSPECIFIED SNOMED Code(s): 41138495 Comment: - Continue synthroid. (7) Pacemaker Current Visit: No Status: Acute Code(s): Z95.0 - PRESENCE OF CARDIAC PACEMAKER SNOMED Code(s): 246425072 Comment: - In plaqce for History SSS (8) Diarrhea Current Visit: Yes Status: Acute Code(s): R19.7 - DIARRHEA, UNSPECIFIED SNOMED Code(s): 11526924 Comment: - 4 days with abdominal pain, no blood - C. Diff pending, but not BM in almost 24hrs makes C. Diff unlikely. - Likely Gastroenteritis (9) DVT prophylaxis Current Visit: No Status: Acute Code(s): JPD7949 - SNOMED Code(s): 651564521 Comment: - HSQ (10) Full code status Current Visit: No Status: Acute Code(s): Z78.9 - OTHER SPECIFIED HEALTH STATUS SNOMED Code(s): 084573523 Comment: Status and Disposition: Inpatient pending stress test and Myelogram.
[2018-08-30 12:39] LABS: INR 0.95 (0.77-1.02)
[2018-08-30] MEDS: Enoxaparin(*) 40 MG/0.4 ML SYR SUBCUT SCH (13:37)
--- NOTE | 2018-08-30 13:45 | ECHO ---
Patient: AISHWARYA PEREZ [facility] Rec#: [id number] : 1955 Date: 08/30/2018 Age: 63y Height: 160 cm / 63.0 in Weight: 104 kg / 229.2 lbs Sex: F BSA: 2.05 Room#: [facility] Admit Date#: 08/29/2018 Type: Inpatient Referring: Junior Escobar Reading: Anthony Harkins MD [employer] Firer: Karen Zapata,RDCS,RDMS CC: SARAH DALY Transthoracic Echocardiogram Indication: CP, ABN EKG BP: 137/68 HR: 60 Rhythm: NSR Findings History: CAD, CHF, DM, HLD, pacemaker, SYNCOPE, DVT Technical Comments: The study quality is fair. The study is technically limited due to poor parasternal windows. Left Ventricle: The left ventricular chamber size is normal. Moderate concentric left ventricular hypertrophy is observed. Global left ventricular wall motion and contractility are within normal limits. The estimated ejection fraction is 50-55%. Abnormal left ventricular diastolic function is observed. Left Atrium: The left atrium is mild to moderately dilated. Right Ventricle: The right ventricular chamber size and systolic function are within normal limits. Right Atrium: The right atrium is mildly dilated. Aortic Valve: The aortic valve structure is not well visualized. There is no evidence of aortic valve thickening. There is no evidence of aortic regurgitation. There is no evidence of aortic stenosis. Mitral Valve: There is mitral annular calcification. The mitral valve leaflets are mildly thickened. There is a trace of mitral regurgitation. There is no evidence of mitral stenosis. Tricuspid Valve: The tricuspid valve leaflets are normal. There is trace tricuspid regurgitation. Unable to estimate the right ventricular systolic pressure. Pulmonic Valve: There is no evidence of pulmonic valve thickening. There is a trace pulmonic regurgitation. Pericardium: There is no significant pericardial effusion. Aorta: The aortic root appears normal. There is no dilatation of the aortic arch. Pulmonary Artery: The main pulmonary artery is not well visualized. Venous: The inferior vena cava is not visualized. Summary: There are changes noted when compared to the previous study done on 12/15/2017, MR is trace now instead of mild then. Conclusions The study is technically limited due to poor parasternal windows. The left ventricular chamber size is normal. Moderate concentric left ventricular hypertrophy is observed. The estimated ejection fraction is 50-55%. Abnormal left ventricular diastolic function is observed. The left atrium is mild to moderately dilated. The right atrium is mildly dilated. There is a trace of mitral regurgitation. There is trace tricuspid regurgitation. Unable to estimate the right ventricular systolic pressure. There is a trace pulmonic regurgitation. Measurements Name Value Normal Range RVIDd (AP) 2D 3.2 cm (0.9 - 2.6) RVDdMajor (2D) 3.5 cm (2.2 - 4.4) RAd ISD 4CH 5.7 cm (3.4 - 4.9) RA (A4C)W 4 cm (2.9 - 4.6) IVSd (2D) 1.5 cm (0.6 - 1) LVPWd (2D) 1.5 cm (0.6 - 1) LVIDd (2D) 5.2 cm (3.6 - 5.4) LVIDs (2D) 3 cm - LV FS (2D) 43 % (25 - 45) Aortic Annulus 2.3 cm (1.4 - 2.6) Ao root diameter (2D) 3.1 cm (2.1 - 3.5) Ascending Ao 3.1 cm (2.1 - 3.4) Aortic arch 3.2 cm (1.8 - 3.4) LA dimension (AP) 2D 4.8 cm (2.3 - 3.8) LAd ISD 4CH 5.9 cm (2.9 - 5.3) LA ISD 4CH W 5.3 cm (2.5 - 4.5) Name Value Normal Range LA ESV BP (A/L) index 40 ml/m2 - Name Value Normal Range MV E-wave Vmax 1.2 m/sec - MV deceleration time 282 msec - MV A-wave Vmax 0.9 m/sec - MV E:A ratio 1.3 ratio - LV septal e' Vmax 0.07 m/sec - LV lateral e' Vmax 0.08 m/sec - LV E:e' septal ratio 16.5 ratio - LV E:e' lateral ratio 16 ratio - Name Value Normal Range AV Vmax 1.7 m/sec - AV VTI 36.5 cm - AV peak gradient 12 mmHg - AV mean gradient 7 mmHg - LVOT Vmax 1.3 m/sec - LVOT VTI 28 cm - LVOT peak gradient 7 mmHg - LVOT mean gradient 4 mmHg - CANDI Vmax 0.8 m/sec - Name Value Normal Range MV Vmax 1.1 m/sec - MV VTI 39 cm - MV peak gradient 5 mmHg - MV mean gradient 2 mmHg - MV PHT 83 msec - MVA (PHT) 2.7 cm2 - Name Value Normal Range PV Vmax 0.7 m/sec - PV peak gradient 2 mmHg -
[2018-08-30] MEDS: Senna TAB PO PRN ×2 (17:07→21:21)
[2018-08-30] MEDS: Polyethylene Glycol 3350* 17 GM PACKET PO PRN (17:07)
[2018-08-30] MEDS: Atorvastatin* 80 MG TAB PO SCH (21:07)
[2018-08-30] MEDS: Lidocaine Patch REMOVE* 1 NOTE MISC SCH (21:09)
[2018-08-30] MEDS: Zolpidem TAB* 10 MG PO PRN (21:20)
[2018-08-31] MEDS: Metoprolol Tartrate TAB* 25 MG PO SCH ×4 (00:33→18:11)
[2018-08-31] MEDS: Cyclobenzaprine TAB* 10 MG PO PRN ×4 (00:35→22:04)
[2018-08-31] MEDS: LORazepam TAB(*) 1 MG PO PRN ×5 (03:11→22:05)
[2018-08-31] MEDS: oxyCODONE TAB* 5 MG TAB PO PRN ×5 (03:18→22:05)
[2018-08-31] MEDS: Levothyroxine TAB* 50 MCG TAB PO SCH (05:47)
[2018-08-31 06:10] LABS: ABS Basophils 0 10^3/ul (0-0.2); ABS Eosinophils 0.1 10^3/ul (0-0.6); ABS Lymphocytes 1.8 10^3/ul (1.0-4.8); ABS Monocytes 0.5 10^3/ul (0-0.8); ABS Neutrophils 2.8 10^3/ul (1.5-7.7); ABS Nucleated RBC 0 10^3/ul; Eosinophil % 1.9 %; Hematocrit 36 % (33-41); Hemoglobin 11.8 g/dL (12.0-16.0); Lymphocyte % 33.7 %; Mean Corpuscular HGB Conc 33 g/dL (31-36); Mean Corpuscular Hemoglobin 30 pg (27-31); Mean Corpuscular Volume 92 fL (80-97); Mean Platelet Volume 7.8 fL (7.4-10.4); Nucleated Red Blood Cells % 0; Platelet Count 353 10^3/uL (150-450); Red Cell Distribution Width 16 % (10.5-15); White Blood Count 5.3 10^3/uL (3.5-10.8)
[2018-08-31 06:28] LABS: BUN/Creatinine Ratio 20.8 (8-20); Calcium 8.8 mg/dL (8.6-10.3); EGFR Non-African American 75.2 (>60); Potassium 4.3 mmol/L (3.5-5.0)
[2018-08-31] MEDS ORDERED: Regadenoson* 0.4 MG/5 ML SYRINGE ONE (07:13)
[2018-08-31] MEDS: Lidocaine PATCH 5%* 1 PATCH TRANSDERM SCH (07:44)
[2018-08-31] MEDS: Aspirin 81 mg CHEW TAB* 81 MG TAB.CHEW PO SCH (07:45)
[2018-08-31] MEDS: Losartan TAB* 25 MG PO SCH (07:45)
[2018-08-31] MEDS: Gabapentin CAP(*) 100 MG PO SCH ×3 (07:45→21:54)
[2018-08-31 12:31] LABS: Troponin I 0.02 ng/mL (<0.04)
[2018-08-31 14:32] LABS: C Reactive Protein 8.75 mg/L (<8.01)
--- NOTE | 2018-08-31 16:56 | CONS ---
CC: Dr. Cavanaugh CARDIOLOGY CONSULTATION: DATE OF CONSULT: 08/31/18 REASON FOR CONSULT: Chest pain. HISTORY OF PRESENT ILLNESS: The patient is a 63-year-old female with a history of obesity, history of diabetes who is admitted to the hospital with back and hip pain. While she is here, she continues to have episodes of chest pain. In speaking with the patient, she states that she has chest pain intermittently. It is not associated with exertion. It is not associated with activity. It is not associated with meals. She says that she will just feel heaviness in her chest. It does not radiate anywhere. It does not go to her shoulder or to her back. She says sometimes it is about 5/10 intensity, sometimes it is 3/10. It lasts for anywhere up to a half an hour. The patient was admitted to the hospital for pain control. The patient did undergo a chemical nuclear stress test today. I reviewed the images personally. It does show a fixed defect to her anterior wall consistent with breast attenuation. The patient did not have attenuation corrected images on this stress test. In reviewing her stress test from November of 2017, the images appear quite similar. The patient did have a cardiac catheterization in [place] at [facility] in 2015, which showed normal coronary arteries. PAST MEDICAL HISTORY: Significant for hypertension, hypothyroidism, hyperlipidemia, obesity. PAST SURGICAL HISTORY: Knee replacement surgery. Pcer implant 2011 [facility] Dual chamber OUTPATIENT MEDICATIONS: 1. Ambien 10 mg at night. 2. Metformin 1000 mg daily. 3. Diltiazem 240 mg a day. 4. Synthroid 75 mcg a day. 5. Simvastatin 40 mg a day. 6. Aspirin 81 mg a day. 7. Oxycodone p.r.n. 8. Avapro 150 mg a day. ALLERGIES: To CEFAZOLIN, CITALOPRAM, NAPROSYN. SOCIAL HISTORY: She is currently living at home alone. She denies tobacco or alcohol use. REVIEW OF SYSTEMS: Negative for fevers and chills. Negative for changes in bowel or bladder habits. Negative for change in weight. Positive for back pain and hip pain as described on admission. PHYSICAL EXAMINATION: Height is 5 feet 4 inches, weight 244 pounds, temperature 97, heart rate is 60, blood pressure 143/62, respiratory rate is 16 , oxygen saturation 94% on room air. Sclerae anicteric. Oropharynx is pink without erythema. Carotids are 2+ without bruits. JVD is normal. Thyroid is normal. Cardiac Exam: S1, S2 without any murmurs, rubs, or gallops. PMI is normal. Lungs are clear to auscultation bilaterally. There is no dullness to percussion. Abdomen is soft, nontender, nondistended with normoactive bowel sounds. Extremities show no edema. She has 2+ pulses throughout. The patient is awake, alert, and oriented. She moves all 4 extremities equally. DIAGNOSTIC STUDIES/LAB DATA: EKG on admission shows normal sinus rhythm with LVH and T-wave inversions in V5 and V6. This is unchanged from November of 2017. Laboratory studies: CBC within normal limits. Chemistry is within normal limits. Troponins are negative x3 despite the frequent episodes of chest pain. IMPRESSION: This is a 63-year-old female with a history of diabetes, hypertension who was admitted to the hospital with back and hip pain. While she is here, she does complain of chest pain. Her troponins are negative. Her stress test, which I reviewed personally shows a large area of defect of anterior wall. It is unchanged from 2018. I personally reviewed both of these images. At this point, I do no think any other workup is necessary. I think the patient is still at low risk for cardiovascular events. The patient will continue on medical therapy. I do not have any problem starting long-acting nitrates on this patient to see if it helps with her pain control, but I do not think it is helping with angina control. [id number]/[facility] #: [id number] [facility]ICAL CENTERJames
--- NOTE | 2018-08-31 17:06 | PN ---
Subjective Date of Service: 08/31/18 Interval History: Patient this AM had an episode while sitting of central chest pain and pressure with radiation to neck and shoulder. Patient states there was associated SOB and diaphoresis. Patient states it lasted about a minute and then stopped spontaneously. Patient states she has pain in her RUQ and that is feels somewhat like when she had gall-bladder pathology and needed a drain earlier this year. Patient has continued hip pain radiating from the back. Patient denies F/C, N/V, diarrhea, dysuria, or other pain. Family History: Unchanged from Admission Social History: Unchanged from Admission Past Medical History: Unchanged from Admission Objective Active Medications: Acetaminophen (Tylenol Tab*) 650 mg PO Q6H PRN PRN Reason: FEVER/PAIN Atorvastatin Calcium (Lipitor*) 80 mg PO BEDTIME [facility] Last Admin: 08/30/18 21:07 Dose: 80 mg Cyclobenzaprine HCl (Flexeril Tab*) 10 mg PO TID PRN PRN Reason: PAIN Last Admin: 08/31/18 13:42 Dose: 10 mg Gabapentin (Neurontin Cap(*)) 100 mg PO TID [facility] Last Admin: 08/31/18 13:42 Dose: 100 mg Heparin Sodium (Porcine) (Heparin Vial(*)) 5,000 units SUBCUT Q8HR [facility] Levothyroxine Sodium (Synthroid Tab*) 50 mcg PO DAILY@0600 [facility] Last Admin: 08/31/18 05:47 Dose: 50 mcg Lidocaine (Lidoderm 5% Patch*) 1 patch TRANSDERM DAILY [facility] Last Admin: 08/31/18 07:44 Dose: 1 patch Lorazepam (Ativan Tab(*)) 1 mg PO QID PRN PRN Reason: ANXIETY Last Admin: 08/31/18 13:42 Dose: 1 mg Losartan Potassium (Cozaar Tab*) 50 mg PO QAM [facility] Last Admin: 08/31/18 07:45 Dose: 50 mg Metoprolol Tartrate (Lopressor Tab*) 25 mg PO Q6H [facility] Last Admin: 08/31/18 13:42 Dose: 25 mg Oxycodone HCl (Roxycodone Tab*) 15 mg PO Q4H PRN PRN Reason: PAIN Last Admin: 08/31/18 13:43 Dose: 15 mg Pharmacy Profile Note (Lidocaine Patch Remove*) 1 note N/A 2100 [facility] Last Admin: 08/30/18 21:09 Dose: 1 note Polyethylene Glycol/Electrolytes (Miralax*) 17 gm PO DAILY PRN PRN Reason: CONSTIPATION Last Admin: 08/30/18 17:07 Dose: 17 gm Senna (Senokot Tab*) 2 tab PO BID PRN PRN Reason: CONSTIPATION Last Admin: 08/30/18 21:21 Dose: 2 tab Zolpidem Tartrate (Ambien Tab*) 10 mg PO BEDTIME PRN PRN Reason: SLEEP Last Admin: 08/30/18 21:20 Dose: 10 mg Vital Signs - 8 hr 08/31/18 08/31/18 08/31/18 11:14 13:42 13:43 Temperature 97 F Pulse Rate 60 Respiratory 16 18 18 Rate Blood Pressure 143/62 (mmHg) O2 Sat by Pulse 94 Oximetry 08/31/18 08/31/18 15:37 15:39 Temperature 98.2 F Pulse Rate 62 Respiratory 17 16 Rate Blood Pressure 142/78 (mmHg) O2 Sat by Pulse 93 Oximetry Oxygen Devices in Use Now: None Appearance: Patient is a 63yo female who appears stated age and is sitting in the bed in [facility]. Eyes: No Scleral Icterus, PERRLA Ears/Nose/Mouth/Throat: NL Teeth, Lips, Gums, Clear Oropharnyx, Mucous Membranes Moist Neck: NL Appearance and Movements; NL JVP, Trachea Midline Respiratory: Symmetrical Chest Expansion and Respiratory Effort, Clear to Auscultation Cardiovascular: NL Sounds; No Murmurs; No JVD, RRR, No Edema Abdominal: No Hepatosplenomegaly, - - Tender to palpation in RUQ. Weakly positive Ness's sign. Lymphatic: No Cervical Adenopathy Extremities: No Edema, No Clubbing, Cyanosis Skin: No Rash or Ulcers, No Nodules or Sclerosis Neurological: Alert and Oriented x 3, NL Muscle Strength and Tone, - - CN II- XII intact. Peripheral neuropathy. Result Diagrams: 08/31/18 05:50 08/31/18 05:50 Microbiology and Other Data: Microbiology 08/29/18 17:04 Urine Culture - Preliminary Urine Enterococcus Faecalis Assess/Plan/Problems-Billing Assessment: Patient is a 63yo female with a PMH for chronic back pain, HFpEF, CAD, DM II, and provoked DVT who is admitted for intractable back pain, chest pain and diarrhea. Patient's back pain is improving, patient's chest pain is resolved and pending a stress test and patient's diarrhea is improved. - Patient Problems (1) Back pain Current Visit: No Status: Acute Code(s): M54.9 - DORSALGIA, UNSPECIFIED SNOMED Code(s): 808261547 Comment: -Continue current pain meds - Appreciate Neurosurgery input, Hardware functioning well, not likely related to back pathology - Myelogram deferred for 5 days at this time due to aspirin dosing and likely low yield test. - Appreciate Ortho Consult. Deemed likely due to issues with prosthesis, may need revision, recommend outpatient follow up. - Physical therapy consult appreciated, May need Rehab - Continue Oxycodone, Gabapentin, and Flexeril (2) Chest pain Current Visit: No Status: Resolved Code(s): R07.9 - CHEST PAIN, UNSPECIFIED SNOMED Code(s): 02127170 Comment: - Stress test read as intermediate risk, unchanged from previous exam. - Appreciate Cardiology consult, feels no need for repeat cath or further testing due to low risk. Likely abnormal due to breast attenuation. - Continue Metoprolol, Trops negative. - Nitro PRN for Chest Pain, may need further workup for alternative causes of CP including Musculoskeletal or GI. (3) CHF (congestive heart failure) Current Visit: No Status: Acute Code(s): I50.9 - HEART FAILURE, UNSPECIFIED SNOMED Code(s): 12202857 Comment: - No evidence of acute exacerbation (4) Diabetes Current Visit: No Status: Acute Code(s): E11.9 - TYPE 2 DIABETES MELLITUS WITHOUT COMPLICATIONS SNOMED Code(s): 87832003 Comment: - BG well controlled - Cont SS lispro, Hold Metformin (5) High cholesterol Current Visit: No Status: Acute Code(s): E78.00 - PURE HYPERCHOLESTEROLEMIA , UNSPECIFIED SNOMED Code(s): 86635466 Comment: - Cont high dose statin, poorly controlled (6) Hypothyroidism Current Visit: No Status: Acute Code(s): E03.9 - HYPOTHYROIDISM, UNSPECIFIED SNOMED Code(s): 17864444 Comment: - Continue synthroid. (7) Pacemaker Current Visit: No Status: Acute Code(s): Z95.0 - PRESENCE OF CARDIAC PACEMAKER SNOMED Code(s): 614913118 Comment: - In place for History SSS (8) Diarrhea Current Visit: Yes Status: Acute Code(s): R19.7 - DIARRHEA, UNSPECIFIED SNOMED Code(s): 37270386 Comment: - 4 days with abdominal pain, no blood - No BM for >24hrs, cancel C. diff. - Likely Gastroenteritis, now improving. (9) Abdominal pain Current Visit: Yes Status: Acute Code(s): R10.9 - UNSPECIFIED ABDOMINAL PAIN SNOMED Code(s): 54811768 Comment: - RUQ pain, weakly positive Ness's sign. - Needed GB drain earlier this year at [facility]. Repeat US negative. - Likely due to known history of IBS, Consider antispasmotics if continues (10) DVT prophylaxis Current Visit: No Status: Acute Code(s): BKV2427 - SNOMED Code(s): 553377527 Comment: - HSQ (11) Full code status Current Visit: No Status: Acute Code(s): Z78.9 - OTHER SPECIFIED HEALTH STATUS SNOMED Code(s): 156231286 Comment: Status and Disposition: Inpatient Pending Placement.
[2018-08-31] MEDS: Nitroglycerin TAB 0.4 MG* 0.4 MG TAB SL PRN ×3 (18:25→18:40)
[2018-08-31] MEDS ORDERED: Morphine 4 MG/ML VIAL (1 ml) 4 MG/ML VIAL IV ONE (18:37)
[2018-08-31] MEDS: Atorvastatin* 80 MG TAB PO SCH (21:54)
[2018-08-31] MEDS: Zolpidem TAB* 10 MG PO PRN (22:04)
[2018-08-31] MEDS: Lidocaine Patch REMOVE* 1 NOTE MISC SCH (22:06)
[2018-08-31] MEDS: Heparin VIAL(*) 5000 UNITS/ML VIAL (FIVE THOUSAND) SUBCUT SCH (22:07)
--- NOTE | 2018-08-31 23:07 | PN ---
Progress Note - Progress Note Date of Service: 08/31/18 SOAP: Subjective: []Patient seen earlier this am. No events ON. Pain improved. Ambulates. Tolerates po well. Objective: []VSS, Afebrile AAOx3, LOLI, Face symmetric Cyrus well Assessment: []63 yof hx Z11-xzcodk fusion, back pain and Rt LE pain Plan: []Monitor VS, Neurochecks Pain control. Upright scoliosis XR revealed good coronal balance. Lateral views limited, not able to perform measurements of spinopelvic parameters. Positive sagital balance suspected Flexion extension films did not reveal instability. Consider orthopedic evaluation for Rt hip. CT myelogram T and L spine when medically able. Dr Navarro will be available if needed. Tadeo Camarena MD
[2018-09-01] MEDS: Metoprolol Tartrate TAB* 25 MG PO SCH ×4 (01:16→18:00)
[2018-09-01] MEDS: oxyCODONE TAB* 5 MG TAB PO PRN ×5 (03:25→22:16)
[2018-09-01 06:37] LABS: BUN/Creatinine Ratio 19.8 (8-20); EGFR African American 85.9 (>60); Potassium 4.6 mmol/L (3.5-5.0)
[2018-09-01] MEDS: Heparin VIAL(*) 5000 UNITS/ML VIAL (FIVE THOUSAND) SUBCUT SCH ×3 (07:01→22:16)
[2018-09-01] MEDS: Levothyroxine TAB* 50 MCG TAB PO SCH (07:01)
[2018-09-01] MEDS: LORazepam TAB(*) 1 MG PO PRN ×3 (07:01→20:52)
[2018-09-01] MEDS: Cyclobenzaprine TAB* 10 MG PO PRN ×3 (07:01→20:45)
[2018-09-01] MEDS: Senna TAB PO PRN ×2 (07:55→20:45)
[2018-09-01] MEDS: Gabapentin CAP(*) 100 MG PO SCH ×3 (07:55→20:45)
[2018-09-01] MEDS: Losartan TAB* 25 MG PO SCH (07:55)
[2018-09-01] MEDS: Lidocaine PATCH 5%* 1 PATCH TRANSDERM SCH (07:56)
--- NOTE | 2018-09-01 19:55 | CONS ---
CONSULTATION REPORT: ADDENDUM: PHYSICAL EXAM: Right lower extremity passive abduction and adduction is non- painful. She does have weakness of hip flexion as well as abduction 4/5. Neuro : Sensation intact to light touch throughout bilateral lower extremities though reports decreased sensation in bilateral feet. Skin: There is no erythema, warmth, or fluctuance about the right hip. DIAGNOSTIC STUDIES: X-ray of the right hip and pelvis, impression per Radiology : 1. Anatomic alignment of the right hip prosthesis without radiographically apparent periprosthetic fracture or loosening. 2. Fractured spinal hardware of unknown chronicity. ASSESSMENT: Right hip pain in a patient who is status post right total hip arthroplasty. PLAN: The patient may continue weightbearing as tolerated. She should follow up with Dr. Sanderson as an outpatient. If there are any further concerns or increasing pain, please feel free to contact Orthopedics. I have discussed the patient with Dr. Stafford. She is agreement with this assessment and plan. The patient will follow up with Dr. Sanderson as an outpatient. MODESTO WALDEN [id number]/[facility] #: [id number] [facility]
[2018-09-01] MEDS: Atorvastatin* 80 MG TAB PO SCH (20:45)
[2018-09-01] MEDS: Zolpidem TAB* 10 MG PO PRN (20:45)
[2018-09-01] MEDS: Lidocaine Patch REMOVE* 1 NOTE MISC SCH (22:20)
[2018-09-02] MEDS: Metoprolol Tartrate TAB* 25 MG PO SCH ×4 (01:14→19:36)
--- NOTE | 2018-09-02 01:34 | DS ---
CC: Dr. Olga Cavanaugh; Dr. Camarena of Neurosurgery * DISCHARGE SUMMARY: DATE OF ADMISSION: 08/29/18 DATE OF DISCHARGE: Expected date of discharge, 09/02/18. ATTENDING FOR THIS ADMISSION: Dr. Newberry.* (DICTATED BY ABIODUN VANG NP) PRIMARY CARE PROVIDER: Olga Cavanaugh MD HOSPITAL COURSE: Please refer to admitting H and P on 08/29/18, but in short, this is a 63-year-old female patient with a past medical history of chronic back pain, status post large thoracic to sacral fusion; also history of heart failure; coronary artery disease; diabetes; and a provoked DVT who was admitted for intractable back pain, chest pain, and diarrhea. The patient was admitted for her intractable chronic back pain and transient chest pain. Being that the patient does have some cardiac history, she was sent for a stress test, which was intermediate risk. Cardiology was consulted and determined that her stress test, even though was intermediate risk, with no change from previous. She was placed on metoprolol and troponins were negative, and at this point, Cardiology does not feel that the patient needs any acute intervention in the form of a cardiac cath. She also has history of heart failure; however, this was not an acute exacerbation. In terms of her back pain, the patient was treated conservatively with pain medications, gabapentin and Flexeril. The patient was seen by Neurosurgery who determined that the patient does not require an acute surgical intervention and can follow up as an outpatient. For the rest of her comorbidities, everything else was stable. The patient was noted to have some physical therapy needs because of her back pain. She has received a bed offer from [facility] [place], bed will be available on 09/02/18. DISCHARGE DIAGNOSES: 1. Back pain, acute on chronic, now stable. 2. Chest pain, stable. 3. History of congestive heart failure, stable. 4. History of diabetes, stable. 5. History of hyperlipidemia, stable. 6. History of hypothyroidism, stable. 7. History of pacemaker insertion for sick sinus syndrome, stable. 8. Diarrhea, now resolved. 9. Abdominal pain related to her diarrhea, likely viral gastroenteritis, now resolved. DISCHARGE MEDICATIONS: Include: 1. Tylenol 650 q.6 hours as needed. 2. Flexeril 10 mg three times a day as needed. 3. Gabapentin 100 mg three times a day. 4. Lidocaine patch daily. 5. Metoprolol tartrate 25 mg p.o. q.6 hours. 6. Multivitamin 1 tablet daily. 7. MiraLAX 17 g as needed. 8. Senna 2 tabs p.o. b.i.d. 9. Zocor 40 mg in the evening. 10. Ambien 10 mg at night. 11. Metformin 1000 mg daily. 12. Oxycodone 15 mg q.4 hours as needed. 13. Lorazepam 1 mg four times a day as needed. 14. Levothyroxine 75 mcg daily. 15. Metformin, please update the metformin to 1000 mg in the morning and 500 mg at bedtime. 16. Aspirin 81 mg daily. 17. Vitamin D 2000 units daily. 18. Cardizem 240 mg p.o. daily. 19. Irbesartan 150 mg p.o. in morning. REVIEW OF SYSTEMS: On the day of discharge, the patient complains of some back pain, which has improved. Otherwise, she denies any fever, fatigue, or chills. No chest pain. No nausea. No vomiting. She has arthralgias and myalgias at her baseline. She does endorse some weakness and otherwise no further constitutional complaints. PHYSICAL EXAMINATION: The patient is awake, alert, in no acute distress. Vital signs are blood pressure 140/77, heart rate 71, respiratory rate 20, O2 saturation 93% on room air, temperature of 98.3. HEENT: The patient is atraumatic, normocephalic. PERRLA with nonicteric sclerae. Oral mucosa is moist. Tongue is midline. Neck is supple, nontender. No JVD noted. No carotid bruits auscultated. Cardiovascular: S1, S2 present. Rate and rhythm are currently regular. Lungs are clear bilaterally to auscultation with no wheezing, rhonchi, or rales. Abdomen is soft, nontender, nondistended. Obese. Positive bowel sounds in all 4 quadrants. No organomegaly noted. is deferred. Musculoskeletal: There is no clubbing, no cyanosis, no edema. She has +2 distal pulses palpable. Full range of motion. Gross motor and sensation are intact. She does have some point tenderness over the paraspinal muscles diffusely from the thoracic down to the lumbar spine. Neurologic: Grossly intact. She does have essential tremor at rest. Otherwise, no focal deficits noted. Psychiatric: She is cooperative and appropriate. LABORATORY DATA: WBCs 5.3, RBCs 3.90, hemoglobin 11.8, hematocrit 36, platelets are 353. Sodium 137, potassium 4.6, chloride 104, CO2 24, BUN 16, creatinine 0.81, GFR 71.0, BUN to creatinine ratio is 19.8. Blood glucose 146. Hemoglobin A1c is 10.9. Lactic acid was negative at 1.0. Calcium is 9.0, magnesium 2.1. Troponins were negative at 0.02, 0.01, 0.02, and 0.01. C- reactive protein 8.75. BNP is 227. Triglycerides 149, cholesterol 201, LDL 137 , HDL 34.4. TSH is 0.13. IMAGING: Ultrasound of the gallbladder dated 08/31/18 shows no gallstones and no gallbladder wall thickening. Trace amount of free intraperitoneal fluid adjacent to the gallbladder, hepatomegaly and hepatic steatosis. Nuclear med imaging, intermediate risk. Stress test as noted above. Multiple images of the spine essentially showed some postsurgical and degenerative changes with no acute changes from imaging in 2017. She does have instrumentation. Essentially , the CT examination of thoracic and lumbar spine demonstrates degenerative and postsurgical changes that do not appear significantly changed when compared to CT of the chest dated January [address] of the abdomen and pelvis dated 08/23; these findings include what appeared to be fracture of hardware unchanged from the prior imaging. There is no CT apparent acute fracture or dislocation. DISPOSITION: The patient has been accepted for acute rehab, discharged in stable condition. DIET: ADA, heart healthy as tolerated. ACTIVITY: Progress as tolerated. FOLLOWUPS: The patient was instructed to follow up with her PCP and Dr. Camarena after discharge from rehab. TIME SPENT: Approximately 35 minutes coordinating discharge plan. ABIODUN VANG, BABAR [id number]/[facility] #: [id number] KARRI
--- NOTE | 2018-09-02 03:45 | CONS ---
CONTINUATION ADDENDUM NOW INCLUDED ON THIS REPORT CONSULTATION REPORT: DATE OF CONSULT: 09/01/18 PRIMARY CARE PHYSICIAN: Dr. Olga Cavanaugh. CONSULTING NEUROSURGEON: Dr. Camarena. ATTENDING ORTHOPEDIC PROVIDER: Dr. Stafford. CHIEF COMPLAINT: Right hip pain. HISTORY OF PRESENT ILLNESS: Ms. Barragan is a 63-year-old female. She has a past medical history of chronic back pain, status post laminectomy and fusion hardware and status post right total hip arthroplasty in 1999. Orthopedics was asked to evaluate her right hip pain today due to acute on chronic pain. The patient states that since her hip surgery in 1999, her right hip has always been painful and has "never seemed right" since. She has been seen in our office by Dr. Sanderson previously on 01/05/18 with the recommendation of formal physical therapy for abductor strengthening and weight loss with no periprosthetic fracture or loosening seen on xray. Today, she states that in May 2018, she fell on to her right hip. She did not seek medical attention. She was unable to bear weight for 1 day, thereafter she has walked with a walker with pain in her right hip with continued ability to ambulate enough to care for herself. Pain is reported as sharp and localized to the lateral hip. She also has pain that shoots down the front and back of her leg though not originating in the lateral hip. She has bilateral lower extremity decreased sensation since her back fusion with no change since this fall in May. She reports that since May, pain has been steadily increasing in her right hip. During her hospital stay, she still has been walking to the bathroom with a walker. PAST MEDICAL HISTORY: Chronic back pain, status post laminectomy; spinal fusion hardware; right total hip arthroplasty; diastolic CHF; coronary artery disease; noninsulin-dependent diabetes; hyperlipidemia; syncope, status post pacemaker; morbid obesity; chronic opioid use for back pain; history of right- sided DVT 10 years ago. PAST SURGICAL HISTORY: Status post bilateral total knee replacement, right hip replacement, , left rotator cuff repair, lumbar laminectomy, pacemaker placement. MEDICATIONS: As in chart. ALLERGIES: CEFAZOLIN, CITALOPRAM, NAPROXEN, NSAIDS, PENICILLIN, SULFA, SONATA. FAMILY HISTORY: Mother with history of CO, open heart surgery. Father of heart attack at 67. SOCIAL HISTORY: The patient is not a smoker, not a drinker, no drug use. REVIEW OF SYSTEMS: General: The patient denies any fever or chills. Cardiac: Denies any chest pain. Respiratory: No difficulty breathing. Abdomen: No abdominal pain, nausea, vomiting, diarrhea. Musculoskeletal: Positive for pain in the right hip and the low back. Pain radiates down into the patient's ankle, both anteriorly and posteriorly. Neuro: Paresthesias in bilateral lower extremities. Hematology: History of blood clot. PHYSICAL EXAM: Temperature 98.2, pulse rate 62, respiratory rate 17, oxygen saturation 93%, blood pressure 142/78. General: Well appearing, no acute distress. HEENT: Normocephalic, atraumatic. Extraocular movements intact. Cardiovascular: DP pulse 2+ bilaterally. Respiratory: Normal rate and effort of breathing. Musculoskeletal: Moves bilateral upper extremities and left lower extremities well without pain. Skin envelope is intact. No obvious deformity. Right lower extremity skin envelope is intact. She has a surgical scar along the lateral aspect of her hip. She is tender directly over the incision and over the greater troch specifically with some muscle atrophy in this area. She is able to flex and extend the hip from 0 to 90 degrees without any pain. She is weak with 4/5 strength of hip flexion and abduction. Heel strike and log roll are nonpainful. Neuro: Sensation intact to light touch throughout bilateral lower extremities though reports decreased sensation in bilateral feet. Skin: There is no erythema, warmth, or fluctuance about the right hip. DIAGNOSTIC STUDIES/LAB DATA: Right hip/pelvis x-rays, anatomical alignment of the right hip prosthesis without any radiographically apparent periprosthetic fracture or loosening. There is a fractured spinal hardware of unknown chronicity. DIAGNOSTIC STUDIES: X-ray of the right hip and pelvis, impression per Radiology : 1. Anatomic alignment of the right hip prosthesis without radiographically apparent periprosthetic fracture or loosening. 2. Fractured spinal hardware of unknown chronicity. ASSESSMENT: Right hip pain in a patient who is status post right total hip arthroplasty. PLAN: The patient may continue weightbearing as tolerated. She should follow up with Dr. Sanderson as an outpatient. If there are any further concerns or increasing pain, please feel free to contact Orthopedics. I have discussed the patient with Dr. Stafford. She is agreement with this assessment and plan. The patient will follow up with Dr. Sanderson as an outpatient. DIAMOND MAYER, MODESTO [id number]/[facility] #: [id number]/[facility] #: [id number] [facility]
[2018-09-02] MEDS: oxyCODONE TAB* 5 MG TAB PO PRN ×4 (05:49→19:36)
[2018-09-02] MEDS: Cyclobenzaprine TAB* 10 MG PO PRN ×3 (05:57→19:36)
[2018-09-02] MEDS: LORazepam TAB(*) 1 MG PO PRN ×3 (05:57→19:36)
[2018-09-02] MEDS: Heparin VIAL(*) 5000 UNITS/ML VIAL (FIVE THOUSAND) SUBCUT SCH ×3 (05:58→22:11)
[2018-09-02] MEDS: Levothyroxine TAB* 50 MCG TAB PO SCH (05:58)
[2018-09-02] MEDS: Losartan TAB* 25 MG PO SCH (07:23)
[2018-09-02] MEDS: Senna TAB PO PRN ×2 (07:24→20:30)
[2018-09-02] MEDS: Gabapentin CAP(*) 100 MG PO SCH ×3 (07:24→20:30)
[2018-09-02] MEDS: Polyethylene Glycol 3350* 17 GM PACKET PO PRN (07:24)
[2018-09-02] MEDS: Lidocaine PATCH 5%* 1 PATCH TRANSDERM SCH (07:24)
--- NOTE | 2018-09-02 16:55 | PN ---
Subjective Date of Service: 09/02/18 Interval History: Ms. Barragan is feeling ok today. She continues to have back and hip pain - not better, but not worse. She has been up ambulating in the room. She is looking forward to rehab. Denies CP, SOB, N/V. No concerns from nursing. Family History: Unchanged from Admission Social History: Unchanged from Admission Past Medical History: Unchanged from Admission Objective Active Medications: Acetaminophen (Tylenol Tab*) 650 mg PO Q6H PRN FEVER/PAIN Atorvastatin Calcium (Lipitor*) 80 mg PO BEDTIME MIGUEL Cyclobenzaprine HCl (Flexeril Tab*) 10 mg PO TID PRN PAIN Gabapentin (Neurontin Cap(*)) 100 mg PO TID MIGUEL Heparin Sodium (Porcine) (Heparin Vial(*)) 5,000 units SUBCUT Q8HR MIGUEL Levothyroxine Sodium (Synthroid Tab*) 50 mcg PO DAILY@0600 MIGUEL Lidocaine (Lidoderm 5% Patch*) 1 patch TRANSDERM DAILY MIGUEL Lorazepam (Ativan Tab(*)) 1 mg PO QID PRN ANXIETY Losartan Potassium (Cozaar Tab*) 50 mg PO QAM MIGUEL Metoprolol Tartrate (Lopressor Tab*) 25 mg PO Q6H MIGUEL Nitroglycerin (Nitroglycerin Tab 0.4 Mg*) 0.4 mg SL Q5M PRN ANGINA Oxycodone HCl (Roxycodone Tab*) 15 mg PO Q4H PRN PAIN Polyethylene Glycol/Electrolytes (Miralax*) 17 gm PO DAILY PRN CONSTIPATION Senna (Senokot Tab*) 2 tab PO BID PRN CONSTIPATION Zolpidem Tartrate (Ambien Tab*) 10 mg PO BEDTIME PRN SLEEP Vital Signs - 8 hr 09/02/18 09/02/18 09/02/18 09:28 10:03 10:59 Temperature 97.3 F Pulse Rate 67 Respiratory 18 18 18 Rate Blood Pressure 150/55 (mmHg) O2 Sat by Pulse 96 Oximetry 09/02/18 09/02/18 09/02/18 12:07 12:32 13:46 Temperature Pulse Rate Respiratory 18 20 18 Rate Blood Pressure (mmHg) O2 Sat by Pulse Oximetry Oxygen Devices in Use Now: None Appearance: Middle-aged female laying in bed in NAD Eyes: No Scleral Icterus Ears/Nose/Mouth/Throat: Mucous Membranes Moist Neck: NL Appearance and Movements; NL JVP, Trachea Midline Respiratory: Symmetrical Chest Expansion and Respiratory Effort, Clear to Auscultation Cardiovascular: NL Sounds; No Murmurs; No JVD, RRR Abdominal: NL Sounds; No Tenderness; No Distention Extremities: No Edema Neurological: Alert and Oriented x 3 Lines/Tubes/Other Access: Clean, Dry and Intact Peripheral IV Nutrition: Taking PO's Result Diagrams: 08/31/18 05:50 09/01/18 06:02 Assess/Plan/Problems-Billing Assessment: Ms. Arce is a 63yo female with a PMH for chronic back pain, HFpEF, CAD, DM II, and provoked DVT who is admitted for intractable back pain, chest pain and diarrhea; back pain is improving, patient's chest pain is resolved. - Patient Problems (1) Back pain Code(s): M54.9 - DORSALGIA, UNSPECIFIED Comment: - Continued pain - Appreciate Neurosurgery consult; hardware functioning well, not likely related to back pathology - Appreciate Ortho consult; no fractures or need for surgical intervention - Continue oxycodone, gabapentin, Flexeril (2) Chest pain Code(s): R07.9 - CHEST PAIN, UNSPECIFIED Comment: - Resolved - Trops negative, no EKG changes - Stress test read as intermediate risk, unchanged from previous exam - Appreciate Cardiology consult; feels no need for repeat cath or further testing due to low risk, likely abnormal due to breast attenuation - Continue nitro (3) Abdominal pain Code(s): R10.9 - UNSPECIFIED ABDOMINAL PAIN Comment: - Resolved - Needed GB drain earlier this year at [facility] - Likely due to known history of IBS (4) CHF (congestive heart failure) Code(s): I50.9 - HEART FAILURE, UNSPECIFIED Comment: - No evidence of acute exacerbation - Echo shows EF 50-55%, atrial dilation - Continue metoprolol, losartan (5) Diabetes Code(s): E11.9 - TYPE 2 DIABETES MELLITUS WITHOUT COMPLICATIONS Comment: - BG well controlled - Continue Lispro SS; resume metformin (6) High cholesterol Code(s): E78.00 - PURE HYPERCHOLESTEROLEMIA, UNSPECIFIED Comment: - Poorly controlled - Continue atorvastatin (7) Hypothyroidism Code(s): E03.9 - HYPOTHYROIDISM, UNSPECIFIED Comment: - Continue levothyroxine (8) DVT prophylaxis Comment: - Heparin SQ (9) Full code status Code(s): Z78.9 - OTHER SPECIFIED HEALTH STATUS Comment: Status and Disposition: Inpatient. Discharge to [facility] tomorrow. Attending: Noemy Robertson
[2018-09-02] MEDS: metFORMIN* 500 MG TAB PO SCH (20:30)
[2018-09-02] MEDS: Atorvastatin* 80 MG TAB PO SCH (20:31)
[2018-09-02] MEDS: Zolpidem TAB* 10 MG PO PRN (20:31)
[2018-09-02] MEDS: Lidocaine Patch REMOVE* 1 NOTE MISC SCH (20:44)
[2018-09-03] MEDS: Metoprolol Tartrate TAB* 25 MG PO SCH ×4 (00:37→18:01)
[2018-09-03] MEDS: LORazepam TAB(*) 1 MG PO PRN ×4 (00:37→20:27)
[2018-09-03] MEDS: oxyCODONE TAB* 5 MG TAB PO PRN ×6 (00:37→21:22)
[2018-09-03] MEDS: Cyclobenzaprine TAB* 10 MG PO PRN ×2 (04:49→20:28)
[2018-09-03] MEDS: Levothyroxine TAB* 50 MCG TAB PO SCH (05:42)
[2018-09-03] MEDS: Heparin VIAL(*) 5000 UNITS/ML VIAL (FIVE THOUSAND) SUBCUT SCH ×3 (05:42→21:23)
--- NOTE | 2018-09-03 08:59 | DS ---
CC: Dr. Olga Cavanaugh; Dr. Camarena. * DISCHARGE SUMMARY: ADDENDUM: This is an addendum to the discharge summary dictated by Vanessa Borden NP on 09/01/18. DATE OF ADMISSION: 08/29/18 DATE OF DISCHARGE: 09/03/18 PRIMARY CARE PROVIDER: Dr. Olga Cavanaugh. ATTENDING PHYSICIAN: Dr. Noemy Robertson * (dictated by Mallorie Rae NP). HISTORY OF PRESENT ILLNESS AND HOSPITAL COURSE: Please refer to the discharge summary dictated by Vanessa Borden NP, on 09/01/18 for complete details , but in short, Ms. Barragan is a 63-year-old female with a past medical history of chronic back pain, status post spinal fusion who presented to the emergency room on 08/29/18 with intractable back and chest pain. The patient was initially due to be discharged on 09/02/18 though due to changes in rehab placement, the patient was ultimately not able to leave yesterday. As of today 09/03/18, the patient has been offered a bed at [facility] for subacute rehab, which she has accepted. There have been no significant changes in her medical status since the original discharge summary was dictated and her physical examination is unchanged. The patient continues to report back and hip pain, which is not any better or worse than it has been in the last few days. She continues to use oxycodone for pain management. She has had no further chest pain. She has been up ambulating in the room with assistance. Ms. Barragan is stable for discharge today. Vital signs are as follows: Temp 97.8 , heart rate 84, respiratory rate 16, oxygen saturation 93% on room air, blood pressure 150/75. DISCHARGE MEDICATIONS: Unchanged. DISCHARGE PLAN: Ms. Barragan will be discharged to subacute rehab at [facility]. Activity will be as tolerated. Diet will be ADA, heart healthy. As noted previously, the patient should follow up with her primary care provider and Dr. Camarena after discharge from rehab. All other discharge plans remain unchanged from the previously dictated discharge summary. DISCHARGE CONDITION: Stable. DISCHARGE DISPOSITION: Subacute rehab at [facility]. This is a summarized report of a complex medical history and hospital stay. For further details, please see the entire medical record. TIME SPENT: Approximately 35 minutes was spent on this discharge. MALLORIE RAE, OPERATIONAL TEST MECHANIC [id number]/[facility] #: [id number] [facility]
[2018-09-03] MEDS: Lidocaine PATCH 5%* 1 PATCH TRANSDERM SCH (09:12)
[2018-09-03] MEDS: Senna TAB PO PRN ×2 (09:13→20:28)
[2018-09-03] MEDS: Losartan TAB* 25 MG PO SCH (09:13)
[2018-09-03] MEDS: Gabapentin CAP(*) 100 MG PO SCH ×3 (09:13→20:27)
--- NOTE | 2018-09-03 15:09 | PN ---
Subjective Date of Service: 09/03/18 Interval History: Ms. Barragan is feeling ok this morning. She continues to have hip and back pain consistent with yesterday. This is not relieved with pain meds, and this makes ambulation difficult. She has been able to ambulate to the bathroom, but not further. She is upset that she has not been seen by PT every day during her hospitalization. She denies CP, SOB, N/V. No concerns from nursing. Plan initially was for d/c to [facility] at [facility] today, but later in the day the patient's insurance denied her [facility] stay. Family History: Unchanged from Admission Social History: Unchanged from Admission Past Medical History: Unchanged from Admission Objective Active Medications: Acetaminophen (Tylenol Tab*) 650 mg PO Q6H PRN FEVER/PAIN Atorvastatin Calcium (Lipitor*) 80 mg PO BEDTIME MIGUEL Cyclobenzaprine HCl (Flexeril Tab*) 10 mg PO TID PRN PAIN Gabapentin (Neurontin Cap(*)) 100 mg PO TID MIGUEL Heparin Sodium (Porcine) (Heparin Vial(*)) 5,000 units SUBCUT Q8HR MIGUEL Levothyroxine Sodium (Synthroid Tab*) 50 mcg PO DAILY@0600 MIGUEL Lidocaine (Lidoderm 5% Patch*) 1 patch TRANSDERM DAILY MIGUEL Lorazepam (Ativan Tab(*)) 1 mg PO QID PRN ANXIETY Losartan Potassium (Cozaar Tab*) 50 mg PO QAM MIGUEL Metformin HCl (Glucophage*) 500 mg PO BEDTIME MIGUEL Metoprolol Tartrate (Lopressor Tab*) 25 mg PO Q6H MIGUEL Nitroglycerin (Nitroglycerin Tab 0.4 Mg*) 0.4 mg SL Q5M PRN ANGINA Oxycodone HCl (Roxycodone Tab*) 15 mg PO Q4H PRN PAIN Polyethylene Glycol/Electrolytes (Miralax*) 17 gm PO DAILY PRN CONSTIPATION Senna (Senokot Tab*) 2 tab PO BID PRN CONSTIPATION Zolpidem Tartrate (Ambien Tab*) 10 mg PO BEDTIME PRN SLEEP Vital Signs - 8 hr 09/03/18 09/03/18 09/03/18 07:30 07:42 08:00 Temperature 97 F Pulse Rate 84 77 Respiratory 16 16 Rate Blood Pressure 150/75 170/87 (mmHg) O2 Sat by Pulse 95 Oximetry 04/04/1309/03/18 09/03/18 08:05 09:13 09:14 Temperature 97.0 F Pulse Rate 77 Respiratory 16 16 16 Rate Blood Pressure 170/87 (mmHg) O2 Sat by Pulse 95 Oximetry 09/03/18 09/03/18 09/03/18 11:15 11:43 13:09 Temperature 97.1 F Pulse Rate 64 Respiratory 12 18 18 Rate Blood Pressure 141/58 (mmHg) O2 Sat by Pulse 93 Oximetry 09/03/18 09/03/18 13:13 13:58 Temperature 98.2 F Pulse Rate 81 Respiratory 18 14 Rate Blood Pressure 134/50 (mmHg) O2 Sat by Pulse 96 Oximetry Oxygen Devices in Use Now: None Appearance: Middle-aged female sitting in bed in NAD Eyes: No Scleral Icterus Ears/Nose/Mouth/Throat: Mucous Membranes Moist Neck: NL Appearance and Movements; NL JVP, Trachea Midline Respiratory: Symmetrical Chest Expansion and Respiratory Effort, Clear to Auscultation Cardiovascular: NL Sounds; No Murmurs; No JVD, RRR Abdominal: NL Sounds; No Tenderness; No Distention Extremities: No Edema Neurological: Alert and Oriented x 3 Nutrition: Taking PO's Result Diagrams: 08/31/18 05:50 09/01/18 06:02 Assess/Plan/Problems-Billing Assessment: Ms. Arce is a 63yo female with a PMH for chronic back pain, HFpEF, CAD, DM II, and provoked DVT who is admitted for intractable back pain, chest pain and diarrhea; back pain is improving, patient's chest pain is resolved. - Patient Problems (1) Back pain Code(s): M54.9 - DORSALGIA, UNSPECIFIED Comment: - Continued pain - Appreciate Neurosurgery consult; hardware functioning well, not likely related to back pathology - Appreciate Ortho consult; no fractures or need for surgical intervention - Continue oxycodone, gabapentin, Flexeril (2) Chest pain Code(s): R07.9 - CHEST PAIN, UNSPECIFIED Comment: - Resolved - Trops negative, no EKG changes - Stress test read as intermediate risk, unchanged from previous exam - Appreciate Cardiology consult; feels no need for repeat cath or further testing due to low risk, likely abnormal due to breast attenuation - Continue nitro (3) Abdominal pain Code(s): R10.9 - UNSPECIFIED ABDOMINAL PAIN Comment: - Resolved - Needed GB drain earlier this year at [facility] - Likely due to known history of IBS (4) CHF (congestive heart failure) Code(s): I50.9 - HEART FAILURE, UNSPECIFIED Comment: - No evidence of acute exacerbation - Echo shows EF 50-55%, atrial dilation - Continue metoprolol, losartan (5) Diabetes Code(s): E11.9 - TYPE 2 DIABETES MELLITUS WITHOUT COMPLICATIONS Comment: - BG well controlled, though A1c is 10.9% - Continue Lispro SS, metformin (6) High cholesterol Code(s): E78.00 - PURE HYPERCHOLESTEROLEMIA, UNSPECIFIED Comment: - Poorly controlled - Continue atorvastatin (7) Hypothyroidism Code(s): E03.9 - HYPOTHYROIDISM, UNSPECIFIED Comment: - Continue levothyroxine (8) DVT prophylaxis Comment: - Heparin SQ (9) Full code status Code(s): Z78.9 - OTHER SPECIFIED HEALTH STATUS Comment: Status and Disposition: Inpatient. Medically stable. Plan was for d/c to [facility] at [facility] today, but insurance denied her stay. Currently awaiting a call back for a [id number] to dispute this denial. Hopeful d/c to [facility] tomorrow if insurance approves. Attending: Noemy Robertson
[2018-09-03] MEDS: Atorvastatin* 80 MG TAB PO SCH (20:27)
[2018-09-03] MEDS: metFORMIN* 500 MG TAB PO SCH (20:27)
[2018-09-03] MEDS: Zolpidem TAB* 10 MG PO PRN (20:29)
[2018-09-03] MEDS: Lidocaine Patch REMOVE* 1 NOTE MISC SCH (21:23)
[2018-09-03] MEDS ORDERED: Metoclopramide IV* 5 MG/ML 2 ML VIAL IV SLOW PU ONE (21:55)
[2018-09-04] MEDS: Metoprolol Tartrate TAB* 25 MG PO SCH ×2 (01:08→07:57)
[2018-09-04] MEDS: Aspirin EC TAB* 81 MG TAB.EC PO SCH ×2 (01:08→07:58)
[2018-09-04] MEDS: LORazepam TAB(*) 1 MG PO PRN ×2 (01:08→07:58)
[2018-09-04] MEDS: Cyclobenzaprine TAB* 10 MG PO PRN (01:08)
[2018-09-04] MEDS: oxyCODONE TAB* 5 MG TAB PO PRN ×2 (01:40→07:58)
[2018-09-04] MEDS: Levothyroxine TAB* 50 MCG TAB PO SCH (06:30)
[2018-09-04] MEDS: Heparin VIAL(*) 5000 UNITS/ML VIAL (FIVE THOUSAND) SUBCUT SCH (06:30)
[2018-09-04] MEDS: Lidocaine PATCH 5%* 1 PATCH TRANSDERM SCH (07:57)
[2018-09-04] MEDS: Losartan TAB* 25 MG PO SCH (07:58)
[2018-09-04] MEDS: Gabapentin CAP(*) 100 MG PO SCH (07:58)
[2018-09-04 08:00] VITALS: BP 113/41
--- NOTE | 2018-09-04 11:12 | DS ---
CC: Dr. Olga Cavanaugh * DISCHARGE SUMMARY: ADDENDUM: My discharge summary was from 09/03/18, that discharge summary was an addendum to the discharge summary from Vanessa Borden on 09/01/18. DATE OF ADMISSION: 08/29/18 DATE OF DISCHARGE: 09/04/18 PRIMARY CARE PROVIDER: Dr. Olga Cavanaugh. ATTENDING PHYSICIAN: Dr. Noemy Robertson * (dictated by Mallorie Rae NP). HISTORY OF PRESENT ILLNESS AND HOSPITAL COURSE: Please refer to the discharge summary dictated by Vanessa Borden NP, on 09/01/18 for complete details and my addendum dictated on 09/03/18. Due to delays in insurance authorization , the patient was not able to be discharged to [facility] for subacute rehab yesterday. Insurance authorization has been obtained at this point and so the patient will be discharged as previously intended. I will note that the patient was seen by physical therapy again yesterday, who reported that she has significant functional limitations from her baseline and was not able to attempt stairs due to weakness, decreased endurance, and postural instability. Physical therapy felt that she had good rehab potential and she was quite motivated. I will also note that the patient was seen by Orthopedics and ultimately had a CT of her pelvis as there was some concern for fracture on x- ray, though the CT of the right hip was unremarkable for fracture. Orthopedics advised that the patient may be weight-bearing as tolerated and should follow up with Dr. Sanderson as an outpatient for further management of her hip pain. The patient otherwise had an uneventful night. Physical exam is unchanged from previous. Ms. Barragan is stable for discharge today. Vital signs are as follows: Temp 98.0 , heart rate 64, respiratory rate 16, oxygen saturation 94% on room air, blood pressure 113/41. DISCHARGE MEDICATIONS: Unchanged. DISCHARGE PLAN: Unchanged, though as noted above the patient should follow up with Orthopedics and as noted previously, the patient should follow up with her primary care provider after discharged from subacute rehab. DISCHARGE CONDITION: Stable. DISCHARGE DISPOSITION: Subacute rehab at [facility]. This is a summarized report of a complex medical history and hospital stay. For further details, please see the entire medical record. TIME SPENT: Approximately 35 minutes was spent on this discharge. MALLORIE RAE, INFORMATION DEVELOPER [id number]/[facility] #: [id number] [facility]YCHIATRIC CENTERJames
== END 2018-09-04 11:15 | DRG 556 ==
LOC: ED 07:02 → MEDTELE 10:47 → OBSVTOIN 09-01 10:00
PROVIDERS: ADMIT Internal Medicine; ATTEND Hospitalist
PROC: 4A12XM4 Monitoring of Cardiac Stress, External Approach (ICD-10-PCS; principal; 2018-08-31)
DX: M25.551 Pain in right hip (principal); I50.32 Chronic diastolic (congestive) heart failure; Z68.41 Body mass index [BMI] 40.0-44.9, adult; M54.9 Dorsalgia, unspecified; I10 Essential (primary) hypertension; G89.29 Other chronic pain; I11.0 Hypertensive heart disease with heart failure; K21.9 Gastro-esophageal reflux disease without esophagitis; K58.9 Irritable bowel syndrome, unspecified; F41.9 Anxiety disorder, unspecified; Z96.641 Presence of right artificial hip joint; E78.5 Hyperlipidemia, unspecified; I25.10 Atherosclerotic heart disease of native coronary artery without angina pectoris; E03.9 Hypothyroidism, unspecified; E66.01 Morbid (severe) obesity due to excess calories; Z96.653 Presence of artificial knee joint, bilateral; R07.9 Chest pain, unspecified; E11.40 Type 2 diabetes mellitus with diabetic neuropathy, unspecified; K76.0 Fatty (change of) liver, not elsewhere classified; Z85.828 Personal history of other malignant neoplasm of skin; Z90.49 Acquired absence of other specified parts of digestive tract; Z86.14 Personal history of Methicillin resistant Staphylococcus aureus infection; Z82.49 Family history of ischemic heart disease and other diseases of the circulatory system; Z86.718 Personal history of other venous thrombosis and embolism; Z83.3 Family history of diabetes mellitus; I25.2 Old myocardial infarction; Z95.5 Presence of coronary angioplasty implant and graft; Z88.8 Allergy status to other drugs, medicaments and biological substances; Z88.5 Allergy status to narcotic agent; Z95.810 Presence of automatic (implantable) cardiac defibrillator; Z80.3 Family history of malignant neoplasm of breast; Z98.1 Arthrodesis status; Z95.0 Presence of cardiac pacemaker
CPT/HCPCS: 36415; 71046; 72082; 72100; 72128; 72131; 72192; 76705; 78452; 80048; 80053; 80061; 81003; 81015; 82550; 82553; 83036; 83605; 83735; 83880; 84443; 84484; 85025; 85610; 86140; 87077; 87086; 87186; 93005; 93017; 93306; 99285; A9270-GY; A9502; G0378; G8978-GP-CK; G8979-GP-CI; G8987-GO-CJ; G8988-GO-CI; J1644; J1650; J2270; J2785; J3475

== ENCOUNTER 2018-11-21 19:25 | Observation (INO) | payer MEDICARE, MEDICAID ==
[2018-11-22] MEDS ORDERED: DOXYcycline CAP(*) 100 MG PO ONE (00:22)
--- NOTE | 2018-11-22 00:23 | ED ---
Adult Trauma - HPI Summary HPI Summary: Patient complains of headache, nausea, blurry vision, wounds to head and left rush status post mechanical fall this a.m. at 3 AM. Denies LOC, altered mental status, fever, cough, sore throat, CP, SOB, N/V/V abdominal pain, change in urine, change in BM. Patient ambulates with walker at baseline. Patient lives alone. Medical history is chronic back pain, HTN, DM, HDL, MRSA. Denies any other pain injury or symptoms. - History of Current Complaint Chief Complaint: EDExtremityLower Stated Complaint: FALL PER PT Time Seen by Provider: 11/21/18 23:38 Hx Obtained From: Patient Mechanism of Injury: Fall Ambulatory at the Scene: Yes Loss of Consciousness: no loss of consciousness Onset Severity: Severe Current Severity: Severe Pain Intensity: 10 Pain Scale Used: 0-10 Numeric Location: Head, Extremities Character: Dull, Aching Aggravating Factor(s): Movement Alleviating Factor(s): Nothing Associated Signs & Symptoms: Positive: Negative - Additional Pertinent History Primary Care Physician: ATUL - Allergy/Home Medications Allergies/Adverse Reactions: Allergies Allergy/AdvReac Type Severity Reaction Status Date / Time cefazolin [From Ancef] Allergy Unknown Verified 11/21/18 19:39 Reaction Details citalopram [From Celexa] Allergy Insomnia Verified 11/21/18 19:39 naproxen Allergy Vomiting Verified 11/21/18 19:39 NSAIDS (Non-Steroidal Allergy GI Upset Verified 11/21/18 19:39 Anti-Inflamma Penicillins Allergy Rash Verified 11/21/18 19:39 Sulfa (Sulfonamide Allergy Unknown Verified 11/21/18 19:39 Antibiotics) Reaction Details zaleplon [From Sonata] Allergy Insomnia Verified 11/21/18 19:39 Home Medications: Home Medications LORazepam TAB(*) [Ativan 1 MG TAB (*)] 1 mg PO BID MDD 2 tabs 11/22/18 [History Confirmed 11/22/18] PMH/Surg Hx/FS Hx/Imm Hx Endocrine/Hematology History: Reports: Hx Blood Transfusions, Hx Diabetes, Hx Thyroid Disease Denies: Hx Anticoagulant Therapy, Hx Blood Disorders, Hx Bone Marrow Disease , Hx Systemic Lupus Erythematosus, Hx Sickle Cell Disease, Hx Anemia, Hx Unexplained Bleeding Cardiovascular History: Reports: Hx Angina, Hx Auto Implanted Cardiovert Defib, Hx Cardiomegaly - SINCE IN HER TEENS, Hx Congestive Heart Failure, Hx Coronary Artery Disease, Hx Deep Vein Thrombosis, Hx Embolism, Hx Hypertension, Hx Pacemaker/ICD, Other Cardiovascular Problems/Disorders - pericarditis Denies: Hx Hypercholesterolemia, Hx Myocardial Infarction, Hx Peripheral Vascular Disease, Hx Valvular Heart Disease Respiratory History: Reports: Hx Chronic Bronchitis, Hx Pneumonia, Other Respiratory Problems/Disorders - sob associated - inspiratory pain left ribs, abdominal distention per pt Denies: Hx Asthma, Hx Chronic Obstructive Pulmonary Disease (COPD) GI History: Reports: Hx Gastroesophageal Reflux Disease, Hx Irritable Bowel, Other GI Disorders - ABDOMEN DISTENDED, IBS Denies: Hx Cirrhosis, Hx Ulcer History: Denies: Hx Chronic Renal Failure, Hx Dialysis, Hx Renal Disease Musculoskeletal History: Reports: Hx Back Problems - back surgery x 3, Hx Orthopedic Injury - knee, hip surgery hx, Other Musculoskeletal History - knee, hip surgery hx Denies: Hx Bursitis, Hx Congenital Bone Abnormalities, Hx Fibromyalgia, Hx Gout, Hx Osteoporosis, Hx Scoliosis, Hx Tendonitis Sensory History: Reports: Hx Contacts or Glasses Denies: Hx Cataracts, Hx Eye Injury, Hx Eye Prosthesis, Hx Glaucoma, Hx Macular Degeneration, Hx Vision Problem, Hx Deafness, Hx Hearing Aid, Hx Hearing Problem, Other Sensory Impairments Opthamlomology History: Reports: Hx Contacts or Glasses Denies: Hx Cataracts, Hx Eye Injury, Hx Eye Prosthesis, Hx Glaucoma, Hx Macular Degeneration, Hx Vision Problem, Other Sensory Impairments Neurological History: Denies: Hx Dementia, Hx Developmental Delay, Hx Headaches, Hx Migraine, Hx Seizures, Hx Spinal Cord Injury, Hx Transient Ischemic Attacks (TIA), Other Neuro Impairments/Disorders - LOC WITH FALLL Psychiatric History: Reports: Hx Anxiety Denies: Hx Attention Deficit Hyperactivity Disorder, Hx Eating Disorder, Hx Depression, Hx Panic Disorder, Hx Post Traumatic Stress Disorder, Hx Inpatient Treatment, Hx Schizophrenia, Hx Bipolar Disorder, Hx Suicide Attempt, Hx Substance Abuse, Other Psychiatric Issues/Disorders - Cancer History Cancer Type, Location and Year: skin cancer on right leg, removed Hx Chemotherapy: No Hx Radiation Therapy: No - Surgical History Surgery Procedure, Year, and Place: left shoulder surgery Jul 08 2013 csections x 3. partial hysterectomy. 3 back surgeries, hardwear in place. right hip REPLACEMENT. LEFT KNEE RECONSTRUCTION. PACEMAKER PLACED-2011. 3 C-SECTIONS. RIGHT SHOULDER ROTATOR CUFF REPAIR - 15 YEARS AGO. UMBILICAL HERNIA REPAIR Hx Anesthesia Reactions: Yes - PROPOFOL REACTION- THRASHING AND SCREAMING - Immunization History Date of Tetanus Vaccine: utd Date of Influenza Vaccine: utd Infectious Disease History: Yes Infectious Disease History: Reports: Hx Clostridium Difficile, Hx of Known/ Suspected MRSA Denies: Hx Hepatitis, Hx Human Immunodeficiency Virus (HIV), Hx Shingles, Hx Tuberculosis, Traveled Outside the [place] in Last 30 Days - Family History Known Family History: Positive: Cardiac Disease - CAD, Diabetes, Other - Breast CA - Social History Alcohol Use: None Hx Substance Use: No Substance Use Type: Reports: None Hx Tobacco Use: No Smoking Status (MU): Never Smoked Tobacco Have You Smoked in the Last Year: No Review of Systems Constitutional: Negative Positive: Blurred Vision ENT: Negative Cardiovascular: Negative Respiratory: Negative Positive: Nausea Genitourinary: Negative Musculoskeletal: Negative Skin: Other Positive: Headache Psychological: Normal All Other Systems Reviewed And Are Negative: Yes Physical Exam - Summary Physical Exam Summary: No indication of trauma noted to mouth, face, head. Full range of motion of neck and jaw. No pain with palpation of neck, back, chest wall, abdomen. Patient moves all 4 extremities normally. Neuro exam normal. Wound to left anterior rush that appears to be older than stated fall time at 3 AM this morning. No indication for suturing. Mild erythema at edges of wound. No purulent discharge. Vital Signs On Initial Exam: Initial Vitals Temp Pulse Resp BP Pulse Ox 97.2 F 68 20 168/84 95 11/21/18 19:36 11/21/18 19:36 11/21/18 19:36 11/21/18 19:36 11/21/18 19:36 Diagnostics - Vital Signs Vital Signs Temp Pulse Resp BP Pulse Ox 11/21/18 23:10 65 92 11/21/18 23:08 65 181/91 93 11/21/18 21:40 97.1 F 70 18 168/111 94 11/21/18 19:36 97.2 F 68 20 168/84 95 - Laboratory Result Diagrams: 11/22/18 02:27 11/23/18 09:57 Lab Statement: Any lab studies that have been ordered have been reviewed, and results considered in the medical decision making process. Adult Trauma Course/Dx - Course Course Of Treatment: Patient complains of headache, nausea, blurry vision, wounds to head and left rush status post mechanical fall this a.m. at 3 AM. Denies LOC, altered mental status, fever, cough, sore throat, CP, SOB, N/V/V abdominal pain, change in urine, change in BM. Patient ambulates with walker at baseline. Patient lives alone. Medical history is chronic back pain, HTN, DM, HDL, MRSA. Denies any other pain injury or symptoms. Vital signs within normal limits. Labs unremarkable. CT brain unremarkable. X-ray left tib-fib unremarkable. No indication for suturing of wound on left anterior rush. Patient repeatedly asking for pain medication. Patient had one episode of diarrhea here in the ED. CDiff negative. Patient ambulated in the ED with walker consistent with baseline. No indication for admission. Patient refuses to leave ED. Agreed to sign long term admission form. Has been informed by nurse, charge nurse and myself that long term admission may cause $1000 night. Patient still persists in being admitted. Patient admitted to hospitalist. - Diagnoses Provider Diagnoses: Fall, Head injury, Laceration, Diarrhea Discharge - Sign-Out/Discharge Documenting (check all that apply): Patient Departure Patient Received Moderate/Deep Sedation with Procedure: No - Discharge Plan Condition: Stable Disposition: HOME - Billing Disposition and Condition Condition: STABLE Disposition: Home
[2018-11-22] MEDS ORDERED: oxyCODONE TAB* 5 MG TAB PO ONE (01:16)
[2018-11-22 02:39] LABS: ABS Lymphocytes 2.3 10^3/ul (1.0-4.8); ABS Monocytes 0.4 10^3/ul (0-0.8); ABS Neutrophils 4.4 10^3/ul (1.5-7.7); Eosinophil % 0.2 %; Hematocrit 38 % (35-47); Hemoglobin 12.7 g/dL (12.0-16.0); Lymphocyte % 31.7 %; Mean Corpuscular HGB Conc 34 g/dL (31-36); Mean Corpuscular Hemoglobin 31 pg (27-31); Mean Corpuscular Volume 93 fL (80-97); Mean Platelet Volume 8.3 fL (7.4-10.4); Platelet Count 287 10^3/uL (150-450); Red Blood Count 4.05 10^6 /uL (3.70-4.87); Red Cell Distribution Width 17 % (10-15); White Blood Count 7.2 10^3/uL (3.5-10.8)
[2018-11-22 02:57] LABS: Albumin/Globulin Ratio 1.1 (1-3); BUN/Creatinine Ratio 13.8 (8-20); C Reactive Protein 18.19 mg/L (<8.01); Calcium 9.4 mg/dL (8.6-10.3); EGFR African American 126.2 (>60); EGFR Non-African American 104.3 (>60); Globulin 3.5 g/dL (2-4); Potassium 3.7 mmol/L (3.5-5.0); Total Bilirubin 0.7 mg/dL (0.2-1.0); Total Protein 7.5 g/dL (6.4-8.9)
[2018-11-22] MEDS ORDERED: Dextrose 50% Syringe 50 ML* 25 GM/50 ML SYRINGE IV PUSH PRN (09:27)
[2018-11-22] MEDS: oxyCODONE TAB* 5 MG TAB PO PRN ×3 (09:47→21:40)
[2018-11-22] MEDS ORDERED: Iodixanol* (CONTRAST) 320 MG/ML 100 ML SDV IV ONE (10:02)
[2018-11-22] MEDS ORDERED: Al Hydrox/Mg Hydrox/Simet LIQ* 30 ML UDC PO ONE (10:29)
[2018-11-22] MEDS ORDERED: NS 0.9% 1000 ML** 1,000 ML IV ONE (11:01)
[2018-11-22] MEDS ORDERED: diPHENhydraMINE IV* 50 MG/ML 1 ml VIAL (BENADRYL) IV ONE (11:03)
[2018-11-22] MEDS ORDERED: Ondansetron INJ* 2 MG/ML VIAL IV ONE (11:03)
[2018-11-22] MEDS ORDERED: Ondansetron INJ* 2 MG/ML VIAL ONE (11:05)
[2018-11-22] MEDS ORDERED: diPHENhydraMINE IV* 50 MG/ML 1 ml VIAL (BENADRYL) ONE (11:05)
[2018-11-22] MEDS ORDERED: Ondansetron INJ* 2 MG/ML VIAL IV PRN (11:45)
[2018-11-22 12:37] LABS: Urine Appearance Clear; Urine Bacteria Absent (Absent); Urine Bilirubin Negative (Negative); Urine Blood Negative (Negative); Urine Color Yellow; Urine Glucose 3+(>=500 mg/dL) (Negative); Urine Ketones Negative (Negative); Urine Nitrite Negative (Negative); Urine Protein 1+(30 mg/dL) (Negative); Urine Red Blood Cell Absent (Absent); Urine Specific Gravity > 1.060 (1.010-1.030); Urine Squamous Epithelial Cell Present (Absent); Urine Urobilinogen Negative (Negative); Urine White Blood Cell Absent (Absent)
[2018-11-22] MEDS: DOXYcycline IV* 100 MG in NS 0.9% 250 ML* 250 ML IVPB SCH ×2 (12:51→23:30)
[2018-11-22] MEDS: Insulin LISPRO* 1 UNITS UNIT SUBCUT SCH ×3 (13:17→21:47)
[2018-11-22] MEDS: Gabapentin CAP(*) 100 MG PO SCH ×3 (13:18→21:40)
[2018-11-22] MEDS: Losartan TAB* 25 MG PO SCH (13:18)
[2018-11-22] MEDS: Diltiazem CD CAP* 240 MG PO SCH (13:18)
[2018-11-22] MEDS: Enoxaparin(*) 40 MG/0.4 ML SYR SUBCUT SCH (14:45)
[2018-11-22] MEDS: LORazepam TAB(*) 1 MG PO SCH ×2 (14:46→21:41)
[2018-11-22] MEDS: Pantoprazole IV* 40 MG IV SCH (14:53)
--- NOTE | 2018-11-22 15:01 | HP ---
HISTORY AND PHYSICAL: DATE OF ADMISSION: 11/22/18 ADMITTING PROVIDER: Junior Escobar MD. PRIMARY CARE PROVIDER: Olga Cavanaugh MD. CHIEF COMPLAINT: Fall with laceration to the left rush with concern by the patient for infection; 1 week of progressive epigastric abdominal pain and diarrhea; reported hematuria and red bowel movements. HISTORY OF PRESENT ILLNESS/HOSPITAL COURSE: Miriam Barragan is a 63-year-old female with a past medical history of chronic back pain, non-insulin dependent diabetes mellitus, hyperlipidemia, hypertension, coronary artery disease, hypothyroidism, syncope, status post pacemaker, pancreatitis, and morbid obesity. She was recently discharged back home from [facility] after a long rehabilitative stay of approximately 2 months after a 08/29/18 to 09/04/18 admission for intractable back pain and additional cardiac workup. She has developed diarrhea and epigastric abdominal pain for the last week. She has red and smelly loose bowel movements. She has not taken anything for the abdominal pain other than her regular opioid medications. She has been nauseous and vomiting, she says, 2 to 3 times a day and she has noticed some red flecks in her urine. Two days ago she thinks she tripped and fell on the lower metal frame of the doorstop, falling to the ground and cutting her left mid rush. It has since gotten more painful, red, and oozing, and she presented for further evaluation. She felt generally weak and unsafe at home. Initial workup in the emergency room has included a negative CT head, noncontrast, lower extremity x-ray, which showed no fracture of the left leg. She has no fever. No white count. She does have elevated CRP to 18 and elevated transaminases. AST is 65, ALT 59, alk phos 134, but normal T-bilirubin at 0.70. She had another episode of diarrhea in the emergency room and had a C. diff. test, which was negative. Dr. Freed thought she was stable for discharge home, but the patient refused and accepted a fpc care admission if necessary. She tells me that her abdominal pain radiates to her back and she does have a history of pancreatitis. I am adding on a lipase and CT abdomen and pelvis to rule out pancreatitis or other GI pathology. PAST MEDICAL HISTORY: 1. Chronic back pain, on chronic opioids, status post laminectomy and spinal fusion hardware with Dr. Curiel of [facility]. 2. Diastolic CHF. 3. CAD, no stents. 4. Non-insulin dependent diabetes mellitus. 5. Hyperlipidemia. 6. Syncope, status post pacemaker. 7. Morbid obesity. 8. Hypothyroidism. 9. Pancreatitis and, what sounds like, a percutaneous cholecystectomy last year after transfer to [facility]. She was advised to get her gallbladder out, but given coexisting pneumonia that was deferred and she has never followed up as an outpatient to have her gallbladder out. PAST SURGICAL HISTORY: 1. Status post bilateral total knee replacements. 2. Right hip replacement. 3. . 4. Left rotator cuff repair. 5. Lumbar laminectomy. 6. Pacemaker placement. MEDICATIONS: Include: 1. Oxycodone 15 mg p.o. q.4 hours p.r.n. 2. Lorazepam 1 mg b.i.d. (Of note, [employer] reference [id number] was checked. Last prescription was 11/16/18. The patient attests that she is taking 4 times a day , but the last dose at this frequency was back on 07/28/18). 3. Metformin 1000 mg a.m. and 500 mg p.m. 4. Ambien 10 mg a day. 5. Zocor 40 mg q.h.s. 6. Senna 2 tabs p.o. b.i.d. 7. Multivitamin 1 tablet daily. 8. Metoprolol tartrate. She is unclear on the dosing, but was prescribed 25 mg p.o. q.6 hours. She states she takes it twice a day. 9. Levothyroxine 75 mcg daily. 10. Irbesartan 150 mg p.o. q.a.m. 11. Gabapentin 100 mg p.o. t.i.d. 12. Diltiazem 240 mg p.o. daily. 13. Cholecalciferol 2000 units p.o. daily. 14. Aspirin 81 mg daily. 15. Doxycycline 100 mg p.o. b.i.d. was just prescribed over the phone by PCP, but she has not actually started that. ALLERGIES: CEFAZOLIN - unknown; CELEXA - insomnia, NAPROXEN - vomiting, NSAIDS - GI upset; PENICILLIN - rash; SULFA - unknown; SONATA/ZALEPLON - insomnia. FAMILY HISTORY: Mother is alive at age 86 with history of IA, open heart surgery. Father at age 67, with 2 heart stents, coronary artery disease. SOCIAL HISTORY: The patient is a never smoker and no drug use other than chronic opioids. No alcohol use. 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 Medical surrogate is her mother, Juhi Omer. She desires to be a full code. REVIEW OF SYSTEMS: A complete 14-point review of systems is negative except as per HPI. PHYSICAL EXAMINATION GENERAL APPEARANCE: In no acute distress. VITAL SIGNS: Temperature 97.8, pulse rate 63, respiratory rate 20, satting 98% on room air, blood pressure 160/81. HEENT: Normocephalic, atraumatic. Pupils are equal, round, and reactive to light. Extraocular muscles are intact. No scleral icterus. LUNGS: Clear to auscultation bilaterally, with no wheezing, rales or rhonchi. CARDIOVASCULAR: Regular rate and rhythm, with no murmurs, rubs or gallops. ABDOMEN: Soft, significant tenderness in the epigastrium. No rebound or guarding. No Ness's sign. There is distention/obesity. EXTREMITIES: Warm, well perfused. No peripheral edema. NEUROLOGIC: Cranial nerves II through XII are intact. Moving all extremities. SKIN: There is an approximately 5 cm horizontal laceration at her mid anterior left rush. Very tender to palpation, with some surrounding erythema and minimal warmth. Unclear degree of fluctuance as she is exquisitely painful to touch. No drainage. DIAGNOSTIC STUDIES/LAB DATA: White count 7.2, hemoglobin 12.7, hematocrit 38, platelets 287. Sodium 137, potassium 3.7, chloride 97, carbon dioxide 31, BUN 8 , creatinine 0.58. Glucose 257, calcium 9.4. Total bili 0.7, AST 65, ALT 59, alk phos 134. CRP 18. Albumin 4.0. Lipase is pending. Imaging: CT of the brain, noncontrast, demonstrated: 1. No traumatic intracranial abnormalities. 2. Mild chronic small vessel ischemic disease. 3. Left sphenoid sinonasal polyp, chronic fungal sinusitis, oral mucocele. Left extremity x-ray demonstrated no acute fracture of the left tibia or fibula. CT abdomen and pelvis with contrast is pending. ASSESSMENT AND PLAN: Miriam Barragan is a 63-year-old female with past medical history of chronic back pain, pancreatitis, and recommendation for gallbladder removal, but has never happened, coronary artery disease, status post congestive heart failure, presenting with 1 week of 8/10 abdominal pain, diarrhea, red bowel movements, red flecks in her urine, and then 2 days ago fell with a laceration to her left rush that is warm, exquisitely tender, and slightly erythematous. She is being admitted to observation status for the workup of her abdominal pain and to start her on cellulitis treatment for her left rush. She has PENICILLIN and SULFA allergies. She got doxycycline 100 mg last night and we will continue that for now. I am obtaining an ultrasound of her left rush to rule out any abscess, although it is unclear if she will tolerate that exam. I am adding on a lipase. Again, CT abdomen and pelvis with IV contrast to further evaluate her abdominal pain, especially given the radiation to the back and 8/10 nature. Her blood sugars are poorly controlled here with glucose of 257. I will add a triglyceride level and try to find out more about her previous workup at [facility] with pancreatitis and infected gallbladder. She has no evidence of Ness's sign and she has minimally elevated transaminases which are not actually far off her baseline( intermittently though they do return to normal limits as well). We will see what the CT abdomen and pelvis shows. I have a low suspicion for acute cholecystitis. I am giving her a GI cocktail with Protonix, viscous lidocaine, aluminum hydroxide, and magnesium hydroxide. I am waiting on the urinalysis given her reported concern for hematuria or pink flecks. I am adding on a stool occult blood. She is not anemic. She was already tested for C. diff. that was negative. For her chronic pain, continue her oxycodone 15 mg p.o. q.4 hours p.r.n. For her chronic benzodiazepines, I am putting her back on the last reported dose from her [employer] registration, which was 1 mg b.i.d. and not 1 mg 4 times a day she says she was taking though, that was back in July. For her hypertension, continue diltiazem 240 mg p.o. daily. She was hypertensive here and nontoxic appearing. I do not believe she is currently septic. Continue her irbesartan or formulary substitute losartan 50 mg p.o. q.a.m. Continue her Ambien 10 mg at night for insomnia. Continue atorvastatin 20 mg for hyperlipidemia and aspirin 81 mg for her coronary artery disease. I will add physical therapy given her weakness and falls and she is open to the idea of returning to rehab for further physical therapy. She was only at home for about 2 weeks before having these complications. She is a full code. After the CT abdomen and pelvis, we will likely restart a heart-healthy and carbohydrate consistent diet. I am putting her on sliding scale insulin before meals and at bedtime. I am holding her metformin given the recent contrast dye she will be receiving. For DVT prophylaxis, we will start Lovenox 40 mg daily. Full Code. [id number]/[facility] #: [id number] MTDD
[2018-11-22] MEDS: Metoprolol Tartrate TAB* 25 MG PO SCH (21:41)
[2018-11-22] MEDS: Atorvastatin* 20 MG TAB PO SCH (21:41)
[2018-11-22] MEDS: Zolpidem TAB* 10 MG PO PRN (23:31)
[2018-11-23] MEDS: oxyCODONE TAB* 5 MG TAB PO PRN ×5 (02:57→20:56)
[2018-11-23] MEDS: Levothyroxine TAB* 75 MCG TAB PO SCH (05:41)
[2018-11-23] MEDS: LORazepam TAB(*) 1 MG PO SCH ×2 (08:44→20:55)
[2018-11-23] MEDS: Insulin LISPRO* 1 UNITS UNIT SUBCUT SCH ×4 (08:44→20:54)
[2018-11-23] MEDS: Diltiazem CD CAP* 240 MG PO SCH (08:45)
[2018-11-23] MEDS: Gabapentin CAP(*) 100 MG PO SCH ×3 (08:45→20:55)
[2018-11-23] MEDS: Losartan TAB* 25 MG PO SCH (08:45)
[2018-11-23] MEDS: Aspirin 81 mg CHEW TAB* 81 MG TAB.CHEW PO SCH (08:45)
[2018-11-23] MEDS: Metoprolol Tartrate TAB* 25 MG PO SCH ×2 (08:46→20:55)
[2018-11-23] MEDS: Pantoprazole IV* 40 MG IV SCH (08:48)
[2018-11-23] MEDS: Prenatal Vitamin TAB PO SCH (08:50)
[2018-11-23 10:41] LABS: Albumin 3.5 g/dL (3.2-5.2); Albumin/Globulin Ratio 1.1 (1-3); Calcium 8.7 mg/dL (8.6-10.3); EGFR African American 121.4 (>60); EGFR Non-African American 100.3 (>60); Globulin 3.2 g/dL (2-4); Potassium 3.9 mmol/L (3.5-5.0); Total Bilirubin 0.5 mg/dL (0.2-1.0); Total Protein 6.7 g/dL (6.4-8.9)
[2018-11-23] MEDS: DOXYcycline IV* 100 MG in NS 0.9% 250 ML* 250 ML IVPB SCH ×2 (10:51→21:56)
[2018-11-23] MEDS: Enoxaparin(*) 40 MG/0.4 ML SYR SUBCUT SCH (12:21)
--- NOTE | 2018-11-23 12:30 | PN ---
Subjective Date of Service: 11/23/18 Interval History: Pt c/o bloody diarrhea x 1 week. abd pain resolved. tolerating food with no problems. L leg laceration sustained 2-3 days ago after a fall Objective Active Medications: Aspirin (Aspirin 81 Mg Chew Tab*) 81 mg PO DAILY [facility] Last Admin: 11/23/18 08:45 Dose: 81 mg Atorvastatin Calcium (Lipitor*) 20 mg PO BEDTIME [facility] Last Admin: 11/22/18 21:41 Dose: 20 mg Dextrose (D50w Syringe 50 Ml*) 12.5 gm IV PUSH .FOR FS < 60 - SS PRN PRN Reason: FS < 60 Diltiazem HCl (Cardizem Cd Cap*) 240 mg PO DAILY [facility] Last Admin: 11/23/18 08:45 Dose: 240 mg Enoxaparin Sodium (Lovenox(*)) 40 mg SUBCUT Q24H [facility] Last Admin: 11/23/18 12:21 Dose: Not Given Gabapentin (Neurontin Cap(*)) 100 mg PO TID [facility] Last Admin: 11/23/18 08:45 Dose: 100 mg Doxycycline Hyclate 100 mg/ (Sodium Chloride) 250 mls @ 250 mls/hr IVPB Q12H [facility] Last Admin: 11/23/18 10:51 Dose: 250 mls/hr Insulin Human Lispro (Humalog*) 0 units SUBCUT ACHS [facility]; Protocol Last Admin: 11/23/18 08:44 Dose: 2 units Levothyroxine Sodium (Synthroid Tab*) 75 mcg PO DAILY@0600 [facility] Last Admin: 11/23/18 05:41 Dose: 75 mcg Lorazepam (Ativan Tab(*)) 1 mg PO BID [facility] Last Admin: 11/23/18 08:44 Dose: 1 mg Losartan Potassium (Cozaar Tab*) 50 mg PO QAM [facility] Last Admin: 11/23/18 08:45 Dose: 50 mg Metoprolol Tartrate (Lopressor Tab*) 25 mg PO BID [facility] Last Admin: 11/23/18 08:46 Dose: 25 mg Multivitamins ( Vitamin Tab*) 1 tab PO DAILY [facility] Last Admin: 11/23/18 08:50 Dose: Not Given Ondansetron HCl (Zofran Inj*) 4 mg IV Q4H PRN PRN Reason: NAUSEA/VOMITING Oxycodone HCl (Roxycodone Tab*) 15 mg PO Q4H PRN PRN Reason: PAIN Last Admin: 11/23/18 07:58 Dose: 15 mg Pantoprazole Sodium (Protonix Tab*) 40 mg PO DAILY [facility] Zolpidem Tartrate (Ambien Tab*) 10 mg PO BEDTIME PRN PRN Reason: SLEEP Last Admin: 11/22/18 23:31 Dose: 10 mg Vital Signs - 8 hr 11/23/18 11/23/18 11/23/18 04:57 07:33 07:58 Temperature 98 F Pulse Rate 62 Respiratory 18 20 20 Rate Blood Pressure 175/65 (mmHg) O2 Sat by Pulse 96 Oximetry 11/23/18 11/23/18 11/23/18 08:44 08:45 10:00 Temperature Pulse Rate Respiratory 20 20 18 Rate Blood Pressure (mmHg) O2 Sat by Pulse Oximetry 11/23/18 11:06 Temperature Pulse Rate Respiratory 18 Rate Blood Pressure (mmHg) O2 Sat by Pulse Oximetry Oxygen Devices in Use Now: None Appearance: 63 yo f in nAD, aAOx3 Eyes: No Scleral Icterus, PERRLA Ears/Nose/Mouth/Throat: NL Teeth, Lips, Gums, Mucous Membranes Moist Neck: NL Appearance and Movements; NL JVP, Trachea Midline Respiratory: Symmetrical Chest Expansion and Respiratory Effort, Clear to Auscultation Cardiovascular: NL Sounds; No Murmurs; No JVD Abdominal: NL Sounds; No Tenderness; No Distention Lymphatic: No Cervical Adenopathy Extremities: No Clubbing, Cyanosis Skin: No Nodules or Sclerosis, - - left leg laceration with subcu purulent collection of 2x10 cm with minimal surrounding cellulitis Neurological: Alert and Oriented x 3, NL Muscle Strength and Tone Result Diagrams: 11/22/18 02:27 11/23/18 09:57 Microbiology and Other Data: Microbiology 11/22/18 02:45 Stool Gross Appearance - Final Stool Shiga Toxin I & II - Final 11/22/18 02:45 Stool Occult Blood (SARINA) - Final Stool 11/22/18 02:45 Stool Gross Appearance - Final Stool C. difficile DNA Amplification - Final 027 Presumptive NEGATIVE Toxigenic C.diff NEGATIVE Assess/Plan/Problems-Billing Assessment: Ms. Arce is a 63 yo female with a PMH for chronic back pain, HFpEF, CAD, DM II, and provoked DVT who is admitted for diarrhea and cellulitis around a cut on her leg - Patient Problems (1) Cellulitis Comment: with a small subcu abscess asked surgery to drain it Cont doxy (2) Bloody diarrhea Comment: improving sootl cx pending will start Flagyl empirically (3) CHF (congestive heart failure) Comment: - No evidence of acute exacerbation - Echo showed EF 50-55%, atrial dilation in 08/2018 - Continue metoprolol, losartan (4) Chronic pain Comment: - Continue home dose of oxycodone (5) Hypertension Comment: - Cont lopressor, losartan, cardizem-controlled (6) Hypothyroidism Comment: - Continue levothyroxine (7) Diabetes Comment: - type 2 - Continue Lispro SS, metformin held (8) DVT prophylaxis Comment: no anticoagulants due to bloody diarrhea Status and Disposition: inpatient
[2018-11-23] MEDS: metroNIDAZOLE TAB* 250 MG PO SCH ×2 (13:14→20:55)
--- NOTE | 2018-11-23 17:01 | OP ---
DATE OF OPERATION: 11/23/18 - ROOM #432 DATE OF : 51 SURGEON: Mik Magdaleno MD CAB STARTER: None. ANESTHESIA: None. PRE-OP DIAGNOSIS: Abscess, left mid rush. POST-OP DIAGNOSIS: Abscess, left mid rush. OPERATIVE PROCEDURE: Incision and drainage, left mid rush abscess. ESTIMATED BLOOD LOSS: Minimal. SPECIMENS: Fluid for Gram stain and culture. DRAINS: None. COMPLICATIONS: None. WOUND CLASSIFICATION: IV. BRIEF HISTORY: Ms. Miriam Barragan is a 63-year-old woman who was admitted to the medical service yesterday with several different complaints; however, she did state that she had fallen on her left mid rush sustaining a transverse laceration which became red and tender. She was noted to have some cellulitis and was started on oral doxycycline as she has multiple antibiotic allergies. Over the last 24 hours, a very superficial abscess has formed, which appears to be containing pus and surgical consultation was obtained. After evaluating the left rush which appears to be a quite superficial abscess with blistering containing turbid fluid, decision was made and recommendations have been given to proceed with incision and drainage. The procedure was discussed with the patient and the risks of but not limited to bleeding, infection, discomfort, recurrence, further surgical intervention depending on clinical course were all explained. DESCRIPTION OF PROCEDURE: The patient was placed in the supine position. Written informed consent was obtained. The left rush was marked with indelible ink. No antibiotics were administered. The area was prepped with Betadine. Time-out verification was completed. The overlying skin of the blister was then excised sharply and there was some turbid yellowish fluid which was sent for culture. This was adequately drained. The overlying blistered skin was excised completely sharply. The underlying subcutaneous tissue was pink and healthy without evidence of deeper extension or necrosis. Bacitracin ointment was applied. The sterile dressing was placed. The patient tolerated the procedure well. [id number]/[facility] #: [id number] [facility]
[2018-11-23] MEDS: Atorvastatin* 20 MG TAB PO SCH (20:55)
[2018-11-23] MEDS: Zolpidem TAB* 10 MG PO PRN (21:05)
[2018-11-24] MEDS: oxyCODONE TAB* 5 MG TAB PO PRN ×6 (01:14→21:36)
[2018-11-24] MEDS: Levothyroxine TAB* 75 MCG TAB PO SCH (05:10)
[2018-11-24 06:30] LABS: Albumin 3.6 g/dL (3.2-5.2); CO2 Carbon Dioxide 27 mmol/L (22-32); Chloride 101 mmol/L (101-111); Sodium 136 mmol/L (135-145)
[2018-11-24 06:36] LABS: ALT 71 U/L (7-52); Albumin/Globulin Ratio 1.2 (1-3); Alkaline Phosphatase 121 U/L (34-104); BUN/Creatinine Ratio 20.4 (8-20); Blood Urea Nitrogen 11 mg/dL (6-24); EGFR African American 137.1 (>60); EGFR Non-African American 113.3 (>60); Globulin 2.9 g/dL (2-4); Glucose 263 mg/dL (70-100); Total Protein 6.5 g/dL (6.4-8.9)
[2018-11-24 07:17] LABS: Anion Gap 8 mmol/L (2-11)
[2018-11-24 07:42] LABS: ABS Basophils 0.1 10^3/ul (0-0.2); ABS Eosinophils 0.1 10^3/ul (0-0.6); ABS Lymphocytes 1.9 10^3/ul (1.0-4.8); ABS Monocytes 0.5 10^3/ul (0-0.8); Eosinophil % 1.8 %; Hematocrit 38 % (35-47); Hemoglobin 12.9 g/dL (12.0-16.0); Lymphocyte % 34.6 %; Mean Corpuscular HGB Conc 34 g/dL (31-36); Mean Corpuscular Hemoglobin 32 pg (27-31); Mean Corpuscular Volume 93 fL (80-97); Mean Platelet Volume 8.7 fL (7.4-10.4); Nucleated Red Blood Cells % 0.2; Platelet Count 280 10^3/uL (150-450); Red Blood Count 4.11 10^6 /uL (3.70-4.87); Red Cell Distribution Width 17 % (10-15); White Blood Count 5.6 10^3/uL (3.5-10.8)
[2018-11-24 08:06] LABS: Potassium Redraw 4.4 mmol/L (3.5-5.0)
[2018-11-24] MEDS: Insulin LISPRO* 1 UNITS UNIT SUBCUT SCH ×4 (08:30→21:22)
[2018-11-24] MEDS: LORazepam TAB(*) 1 MG PO SCH ×2 (08:31→21:17)
[2018-11-24] MEDS: Losartan TAB* 25 MG PO SCH (08:31)
[2018-11-24] MEDS: metroNIDAZOLE TAB* 250 MG PO SCH ×3 (08:32→21:20)
[2018-11-24] MEDS: Pantoprazole TAB * 40 MG TAB PO SCH (08:32)
[2018-11-24] MEDS: Aspirin 81 mg CHEW TAB* 81 MG TAB.CHEW PO SCH (08:32)
[2018-11-24] MEDS: Diltiazem CD CAP* 240 MG PO SCH (08:32)
[2018-11-24] MEDS: Prenatal Vitamin TAB PO SCH (08:32)
[2018-11-24] MEDS: Gabapentin CAP(*) 100 MG PO SCH ×3 (08:32→21:18)
[2018-11-24] MEDS: Metoprolol Tartrate TAB* 25 MG PO SCH ×2 (08:34→21:14)
[2018-11-24] MEDS: DOXYcycline IV* 100 MG in NS 0.9% 250 ML* 250 ML IVPB SCH (10:02)
--- NOTE | 2018-11-24 17:26 | PN ---
Subjective Date of Service: 11/24/18 Interval History: Pt still c/o diarrhea, not blood anymore but 20x/24h, as per d/w RN pt may be exaggerating a little bit. C/o pain inn left leg where her wound is. Objective Active Medications: Aspirin (Aspirin 81 Mg Chew Tab*) 81 mg PO DAILY [facility] Last Admin: 11/24/18 08:32 Dose: 81 mg Atorvastatin Calcium (Lipitor*) 20 mg PO BEDTIME [facility] Last Admin: 11/23/18 20:55 Dose: 20 mg Dextrose (D50w Syringe 50 Ml*) 12.5 gm IV PUSH .FOR FS < 60 - SS PRN PRN Reason: FS < 60 Diltiazem HCl (Cardizem Cd Cap*) 240 mg PO DAILY [facility] Last Admin: 11/24/18 08:32 Dose: 240 mg Gabapentin (Neurontin Cap(*)) 100 mg PO TID [facility] Last Admin: 11/24/18 14:42 Dose: 100 mg Doxycycline Hyclate 100 mg/ (Sodium Chloride) 250 mls @ 250 mls/hr IVPB Q12H [facility] Last Admin: 11/24/18 10:02 Dose: 250 mls/hr Insulin Human Lispro (Humalog*) 0 units SUBCUT ACHS [facility]; Protocol Last Admin: 11/24/18 12:50 Dose: 6 units Levothyroxine Sodium (Synthroid Tab*) 75 mcg PO DAILY@0600 [facility] Last Admin: 11/24/18 05:10 Dose: 75 mcg Lorazepam (Ativan Tab(*)) 1 mg PO BID [facility] Last Admin: 11/24/18 08:31 Dose: 1 mg Losartan Potassium (Cozaar Tab*) 50 mg PO QAM [facility] Last Admin: 11/24/18 08:31 Dose: 50 mg Metoprolol Tartrate (Lopressor Tab*) 25 mg PO BID [facility] Last Admin: 11/24/18 08:34 Dose: 25 mg Metronidazole (Flagyl Tab*) 500 mg PO TID [facility] Last Admin: 11/24/18 14:43 Dose: 500 mg Multivitamins ( Vitamin Tab*) 1 tab PO DAILY [facility] Last Admin: 11/24/18 08:32 Dose: 1 tab Ondansetron HCl (Zofran Inj*) 4 mg IV Q4H PRN PRN Reason: NAUSEA/VOMITING Oxycodone HCl (Roxycodone Tab*) 15 mg PO Q4H PRN PRN Reason: PAIN Last Admin: 11/24/18 13:29 Dose: 15 mg Oxycodone HCl (Roxycodone Tab*) 5 mg PO Q6H PRN PRN Reason: PAIN Pantoprazole Sodium (Protonix Tab*) 40 mg PO DAILY [facility] Last Admin: 11/24/18 08:32 Dose: 40 mg Zolpidem Tartrate (Ambien Tab*) 10 mg PO BEDTIME PRN PRN Reason: SLEEP Last Admin: 11/23/18 21:05 Dose: 10 mg Vital Signs - 8 hr 11/24/18 11/24/18 11/24/18 11:07 11:08 11:09 Temperature Pulse Rate Respiratory 18 18 18 Rate Blood Pressure (mmHg) O2 Sat by Pulse Oximetry 11/24/18 11/24/18 11/24/18 11:10 13:29 14:42 Temperature 97.8 F Pulse Rate 62 Respiratory 20 18 16 Rate Blood Pressure 144/63 (mmHg) O2 Sat by Pulse 95 Oximetry 11/24/18 11/24/18 15:15 16:01 Temperature 97.2 F Pulse Rate 60 Respiratory 16 16 Rate Blood Pressure 145/67 (mmHg) O2 Sat by Pulse 94 Oximetry Oxygen Devices in Use Now: None Appearance: 63 yo F in nAD, aAOx3 Eyes: No Scleral Icterus, PERRLA Ears/Nose/Mouth/Throat: NL Teeth, Lips, Gums, Mucous Membranes Moist Neck: NL Appearance and Movements; NL JVP, Trachea Midline Respiratory: Symmetrical Chest Expansion and Respiratory Effort Cardiovascular: NL Sounds; No Murmurs; No JVD, RRR Abdominal: NL Sounds; No Tenderness; No Distention, No Hepatosplenomegaly Lymphatic: No Axillary Adenopathy Extremities: No Clubbing, Cyanosis, - - trace b/l LE's edema, anterior left distal leg with laceration s/p incision by Dr. Magdaleno, wound is at 2x8 cm botom covered with slough Skin: No Nodules or Sclerosis, - - see above Neurological: Alert and Oriented x 3, NL Muscle Strength and Tone Result Diagrams: 11/24/18 07:03 11/24/18 07:02 Microbiology and Other Data: Microbiology 11/22/18 02:45 Stool Gross Appearance - Final Stool Shiga Toxin I & II - Final 11/22/18 02:45 Stool Occult Blood (SARINA) - Final Stool 11/22/18 02:45 Stool Gross Appearance - Final Stool C. difficile DNA Amplification - Final 027 Presumptive NEGATIVE Toxigenic C.diff NEGATIVE Assess/Plan/Problems-Billing Assessment: Ms. Arce is a 63 yo female with a PMH for chronic back pain, HFpEF, CAD, DM II, and provoked DVT who is admitted for diarrhea and cellulitis around a cut on her leg - Patient Problems (1) Cellulitis Comment: with a small subcu abscess drained by Dr. Magdaleno. cont local care, cont Doxy, can change to PO (2) Bloody diarrhea Comment: improving, not sure if pt is not exaggerating the frequency. stool cx neg C. diff neg cont Flagyl empirically, start probiotic Blood in stool resolved-Hb WNL (3) CHF (congestive heart failure) Comment: - No evidence of acute exacerbation - Echo showed EF 50-55%, atrial dilation in 08/2018 - Continue metoprolol, losartan (4) Chronic pain Comment: - Continue home dose of oxycodone (5) Hypertension Comment: - Cont lopressor, losartan, cardizem-controlled (6) Hypothyroidism Comment: - Continue levothyroxine (7) Diabetes Comment: - type 2 - Continue Lispro SS, metformin held (8) DVT prophylaxis Comment: will start Lovenox Status and Disposition: inpatient
[2018-11-24] MEDS: Enoxaparin(*) 40 MG/0.4 ML SYR SUBCUT SCH (17:41)
[2018-11-24] MEDS: Atorvastatin* 20 MG TAB PO SCH (21:14)
[2018-11-24] MEDS: DOXYcycline CAP(*) 100 MG PO SCH (21:16)
[2018-11-24] MEDS: Lactobacillus Acidophilus* 1 TAB PO SCH (21:19)
[2018-11-24] MEDS: Zolpidem TAB* 10 MG PO PRN (21:37)
[2018-11-25] MEDS: oxyCODONE TAB* 5 MG TAB PO PRN ×8 (01:46→22:00)
[2018-11-25] MEDS: Levothyroxine TAB* 75 MCG TAB PO SCH (05:48)
--- NOTE | 2018-11-25 09:11 | PN ---
<Carmel Deras - Last Filed: 11/25/18 10:30> Progress Note - Progress Note Date of Service: 11/25/18 Note: S: This is a 63 y/o female post Left lower extremity laceration/ contusion I&D on 23NOV[address] Magdaleno. She fell on a metal bar last 20Nov2018. The patient has a history of DM Type II, CHF, chronic low back pain, HTN, and hypothyroidism. The patient has been experiencing diarrhea since last Friday, 18NOV2018. She states that this is not uncommon for her, as she has a history of irritable bowel syndrome. However, different from past flares of IBS, she experienced blood in her stool and an increased urgency. With the recent L lower rush laceration and cellulitis, the patient has had difficulty getting to the bathroom in time for bowel movements. The patient denies incontinence of urine or stool, and the blood in the stool has recently resolved. Per patient, her last colonoscopy was 3 years ago and approx 5 polyps were removed. Since the I&D of the Left lower leg laceration, the patient has been in significant pain. Today, she states the L lower leg pain is a 7/10. This is slightly better than the last few days. She currently takes 15 mg of oxycodone q 4 hours, but started a 5 mg dose of oxycodone q 6 hours for breakthrough pain. The patient states this is helpful and she does not experience pain as often. She began ambulating using L leg starting yesterday, 24NOV2018, as before she was not walking due to limitation by pain. She denies an increase in L lower extremity numbness or tingling aside from her diabetic neuropathy. Her prescription for doxy was changed to PO yesterday. She also denies abdominal pain, nausea, vomiting, difficulty eating, drinking, or voiding , SOB, chest pain, fevers, or chills. Active medications are as follows: Aspirin (Aspirin 81 Mg Chew Tab*) 81 mg PO DAILY [facility] Last Admin: 11/25/18 09:29 Dose: 81 mg Atorvastatin Calcium (Lipitor*) 20 mg PO BEDTIME [facility] Last Admin: 11/24/18 21:14 Dose: 20 mg Dextrose (D50w Syringe 50 Ml*) 12.5 gm IV PUSH .FOR FS < 60 - SS PRN PRN Reason: FS < 60 Diltiazem HCl (Cardizem Cd Cap*) 240 mg PO DAILY [facility] Last Admin: 11/25/18 09:29 Dose: 240 mg Doxycycline Hyclate (Vibramycin Cap(*)) 100 mg PO BID [facility] Last Admin: 11/25/18 09:29 Dose: 100 mg Enoxaparin Sodium (Lovenox(*)) 40 mg SUBCUT Q24H [facility] Last Admin: 11/24/18 17:41 Dose: 40 mg Gabapentin (Neurontin Cap(*)) 100 mg PO TID [facility] Last Admin: 11/25/18 09:29 Dose: 100 mg Insulin Human Lispro (Humalog*) 0 units SUBCUT [facility]; Protocol Last Admin: 11/25/18 09:31 Dose: 6 units Lactobacillus Rhamnosus (Lactobacillus Acidophilus*) 1 tab PO BID [facility] Last Admin: 11/25/18 09:30 Dose: 1 tab Levothyroxine Sodium (Synthroid Tab*) 75 mcg PO DAILY@0600 [facility] Last Admin: 11/25/18 05:48 Dose: 75 mcg Lorazepam (Ativan Tab(*)) 1 mg PO BID [facility] Last Admin: 11/25/18 09:28 Dose: 1 mg Losartan Potassium (Cozaar Tab*) 50 mg PO QAM [facility] Last Admin: 11/25/18 09:29 Dose: 50 mg Metformin HCl (Glucophage*) 1,000 mg PO DAILY WITH MEAL [facility] Last Admin: 11/25/18 09:30 Dose: 1,000 mg Metformin HCl (Glucophage*) 500 mg PO DAILY@1700 [facility] Metoprolol Tartrate (Lopressor Tab*) 25 mg PO BID [facility] Last Admin: 11/25/18 09:28 Dose: 25 mg Metronidazole (Flagyl Tab*) 500 mg PO TID [facility] Last Admin: 11/25/18 09:28 Dose: 500 mg Multivitamins ( Vitamin Tab*) 1 tab PO DAILY [facility] Last Admin: 11/25/18 09:29 Dose: 1 tab Ondansetron HCl (Zofran Inj*) 4 mg IV Q4H PRN PRN Reason: NAUSEA/VOMITING Oxycodone HCl (Roxycodone Tab*) 15 mg PO Q4H PRN PRN Reason: PAIN Last Admin: 11/25/18 09:26 Dose: 15 mg Oxycodone HCl (Roxycodone Tab*) 5 mg PO Q6H PRN PRN Reason: PAIN Last Admin: 11/25/18 04:35 Dose: 5 mg Pantoprazole Sodium (Protonix Tab*) 40 mg PO DAILY [facility] Last Admin: 11/25/18 09:29 Dose: 40 mg Zolpidem Tartrate (Ambien Tab*) 10 mg PO BEDTIME PRN PRN Reason: SLEEP Last Admin: 11/24/18 21:37 Dose: 10 mg O: Vital Signs - 8 hr 11/25/18 11/25/18 11/25/18 01:46 04:00 04:18 Temperature 97.9 F Pulse Rate 73 Respiratory 20 16 16 Rate Blood Pressure 157/42 (mmHg) O2 Sat by Pulse 94 Oximetry 11/25/18 11/25/18 04:35 05:47 Temperature Pulse Rate Respiratory 18 20 Rate Blood Pressure (mmHg) O2 Sat by Pulse Oximetry Intake & Output 11/23/18 11/24/18 11/25/18 11/26/18 06:59 06:59 06:59 06:59 Intake Total 2930 1895 2100 Output Total 1550 900 950 Balance 0684 989 1640 Weight 266 lb 6.4 oz Intake: IV Fluids 1000 275 doxy 275 IVPB 250 260 doxy 260 Oral 1680 1620 1840 Output: Urine 1550 900 950 Other: # Bowel Movements 1 Estimated Stool Amount Medium # Voids 1 Intake & Output 11/24/18 11/25/18 11/25/18 22:59 06:59 14:59 Intake Total 640 720 Output Total 950 Balance -310 720 Intake: Oral 640 720 Output: Urine 950 General: The patient is non-toxic appearing and can sit or lay supine without pain. Pt is A&O x 3. Left lower extremity: Located mid shaft of the left lower extremity, there is a superficial laceration approx 7cm x 2cm in size that has minimal purulent drainage. There is an area of erythema surrounding the laceration that is approx 9 cm x 5 cm in size that remains within the limits of a line drawn by Dr. Magdaleno on 23NOV2018. Above the laceration, located proximally, the erythema is slightly fluctuant to palpation. Below the laceration, located distally, there is a firm area of induration. The patient experiences pain when palpating the area of erythema surrounding the laceration. No purulent drainage can be expressed upon palpation surrounding the laceration. No lymphatic streaking or peripheral edema is noted. Dorsalis pedis pulse is 2+ and regular. Dressing was changed today [id number]. Labs/Diagnostics: Laboratory Tests 11/24/18 11/24/18 11/24/18 11:55 16:40 20:03 POC Glucose (mg/dL) 284 H 219 H 301 H 11/25/18 08:05 POC Glucose (mg/dL) 274 H SOURCE: LEG,LEFT SPDESC: ORDERED: Culture & Stain COMMENTS: Comment: left rush abscess Procedure Result Reported Site Wound/Misc Gram Stain Final 11/23/18- 1510 ML 4+ Neutrophils 4+ Gram Positive Cocci in Chains, resembling Strep Wound/Misc Culture Preliminary 11/24/18- 1447 ML Organism 1 STREPTOCOCCUS INTERMEDIUS Quantity 3+ * ML - Main Lab Microbiology 11/22/18 15:04 Stool Shiga Toxin I & II - Final Negative Shiga Toxin 1 & 2 11/22/18 02:45 Stool Stool Gross Appearance - Final 11/22/18 02:45 Stool C. difficile DNA Amplification - Final 027 Presumptive NEGATIVE Toxigenic C.diff NEGATIVE A: 1. Diarrhea 2. L lower extremity contusion/laceration s/p superficial I&D with cellulitis, improving slightly P: 1. Diarrhea - continue flagyl and probiotic as prescribed for diarrhea. Both Shiga Toxin I & II and C. Diff stool cultures are negative. 2. L lower extremity contusion/laceration s/p superficial I&D with cellulitis - continue dressing changes with antibiotic ointment use daily. Continue use of 5 mg Oxycodone q 6 hours as needed for breakthrough pain. Continue regular ambulation. Discuss with physician continuation/need for PO doxy. <Zhen Mantilla - Last Filed: 11/25/18 16:21> Progress Note - Progress Note Note: Patient seen and examined with PA student, Carmel Deras. I agree with the above documentation. In addition, the imaging studies (plain film of the LLE and US) were reviewed. With the ongoing tenderness and some fluctuation of the wound I would guess there is some component of hematoma in addition to the superficial lac and cellulitis, but agree that this can be followed at present with regular wound rechecks. Discussed w/ Dr. Magdaleno.
[2018-11-25] MEDS: LORazepam TAB(*) 1 MG PO SCH ×2 (09:28→19:51)
[2018-11-25] MEDS: metroNIDAZOLE TAB* 250 MG PO SCH ×3 (09:28→19:42)
[2018-11-25] MEDS: Metoprolol Tartrate TAB* 25 MG PO SCH ×2 (09:28→19:43)
[2018-11-25] MEDS: Aspirin 81 mg CHEW TAB* 81 MG TAB.CHEW PO SCH (09:29)
[2018-11-25] MEDS: Gabapentin CAP(*) 100 MG PO SCH ×3 (09:29→19:42)
[2018-11-25] MEDS: Diltiazem CD CAP* 240 MG PO SCH (09:29)
[2018-11-25] MEDS: Losartan TAB* 25 MG PO SCH (09:29)
[2018-11-25] MEDS: Pantoprazole TAB * 40 MG TAB PO SCH (09:29)
[2018-11-25] MEDS: DOXYcycline CAP(*) 100 MG PO SCH (09:29)
[2018-11-25] MEDS: Prenatal Vitamin TAB PO SCH (09:29)
[2018-11-25] MEDS: Lactobacillus Acidophilus* 1 TAB PO SCH ×2 (09:30→19:41)
[2018-11-25] MEDS: metFORMIN* 1,000 MG TAB PO SCH (09:30)
[2018-11-25] MEDS: Insulin LISPRO* 1 UNITS UNIT SUBCUT SCH ×4 (09:31→19:52)
[2018-11-25] MEDS ORDERED: Loperamide CAP* 2 MG PO PRN ×2 (14:43→15:00)
[2018-11-25] MEDS: Levofloxacin TAB* 500 MG PO SCH (15:39)
--- NOTE | 2018-11-25 15:51 | PN ---
Subjective Date of Service: 11/25/18 Interval History: Pt c/o "a lot of diarrhea", but reported 2 loose stools today, denies abd pain No more blood in stool noted Objective Active Medications: Aspirin (Aspirin 81 Mg Chew Tab*) 81 mg PO DAILY [facility] Last Admin: 11/25/18 09:29 Dose: 81 mg Atorvastatin Calcium (Lipitor*) 20 mg PO BEDTIME [facility] Last Admin: 11/24/18 21:14 Dose: 20 mg Dextrose (D50w Syringe 50 Ml*) 12.5 gm IV PUSH .FOR FS < 60 - SS PRN PRN Reason: FS < 60 Diltiazem HCl (Cardizem Cd Cap*) 240 mg PO DAILY [facility] Last Admin: 11/25/18 09:29 Dose: 240 mg Enoxaparin Sodium (Lovenox(*)) 40 mg SUBCUT Q24H [facility] Last Admin: 11/24/18 17:41 Dose: 40 mg Gabapentin (Neurontin Cap(*)) 100 mg PO TID [facility] Last Admin: 11/25/18 14:03 Dose: 100 mg Insulin Human Lispro (Humalog*) 0 units SUBCUT ACHS [facility]; Protocol Last Admin: 11/25/18 12:00 Dose: 6 units Lactobacillus Rhamnosus (Lactobacillus Acidophilus*) 1 tab PO BID [facility] Last Admin: 11/25/18 09:30 Dose: 1 tab Levofloxacin (Levaquin Tab*) 500 mg PO Q24H [facility]; Protocol Last Admin: 11/25/18 15:39 Dose: 500 mg Levothyroxine Sodium (Synthroid Tab*) 75 mcg PO DAILY@0600 [facility] Last Admin: 11/25/18 05:48 Dose: 75 mcg Loperamide HCl (Imodium Cap*) 2 mg PO DAILY PRN PRN Reason: IF > 4X BM PER DAY Lorazepam (Ativan Tab(*)) 1 mg PO BID [facility] Last Admin: 11/25/18 09:28 Dose: 1 mg Losartan Potassium (Cozaar Tab*) 50 mg PO QAM [facility] Last Admin: 11/25/18 09:29 Dose: 50 mg Metformin HCl (Glucophage*) 1,000 mg PO DAILY WITH MEAL [facility] Last Admin: 11/25/18 09:30 Dose: 1,000 mg Metformin HCl (Glucophage*) 500 mg PO DAILY@1700 [facility] Metoprolol Tartrate (Lopressor Tab*) 25 mg PO BID [facility] Last Admin: 11/25/18 09:28 Dose: 25 mg Metronidazole (Flagyl Tab*) 500 mg PO TID [facility] Last Admin: 11/25/18 14:04 Dose: 500 mg Multivitamins ( Vitamin Tab*) 1 tab PO DAILY [facility] Last Admin: 11/25/18 09:29 Dose: 1 tab Oxycodone HCl (Roxycodone Tab*) 15 mg PO Q4H PRN PRN Reason: PAIN Last Admin: 11/25/18 14:04 Dose: 15 mg Oxycodone HCl (Roxycodone Tab*) 5 mg PO Q6H PRN PRN Reason: PAIN Last Admin: 11/25/18 12:42 Dose: 5 mg Pantoprazole Sodium (Protonix Tab*) 40 mg PO DAILY [facility] Last Admin: 11/25/18 09:29 Dose: 40 mg Zolpidem Tartrate (Ambien Tab*) 10 mg PO BEDTIME PRN PRN Reason: SLEEP Last Admin: 11/24/18 21:37 Dose: 10 mg Vital Signs - 8 hr 11/25/18 11/25/18 11/25/18 08:00 09:26 09:27 Temperature Pulse Rate Respiratory 16 18 18 Rate Blood Pressure (mmHg) O2 Sat by Pulse Oximetry 11/25/18 11/25/18 11/25/18 09:28 09:29 11:16 Temperature 98.1 F Pulse Rate 62 Respiratory 18 18 16 Rate Blood Pressure 136/68 (mmHg) O2 Sat by Pulse 95 Oximetry 11/25/18 11/25/18 11/25/18 11:58 11:59 12:42 Temperature Pulse Rate Respiratory 16 16 16 Rate Blood Pressure (mmHg) O2 Sat by Pulse Oximetry 11/25/18 11/25/18 14:03 14:04 Temperature Pulse Rate Respiratory 16 16 Rate Blood Pressure (mmHg) O2 Sat by Pulse Oximetry Oxygen Devices in Use Now: None Appearance: 63 yo f in nAD, AAOx3 Eyes: No Scleral Icterus, PERRLA Ears/Nose/Mouth/Throat: NL Teeth, Lips, Gums, Mucous Membranes Moist Neck: NL Appearance and Movements; NL JVP, Trachea Midline Respiratory: Symmetrical Chest Expansion and Respiratory Effort, Clear to Auscultation Cardiovascular: NL Sounds; No Murmurs; No JVD Abdominal: NL Sounds; No Tenderness; No Distention, No Hepatosplenomegaly Lymphatic: No Cervical Adenopathy Extremities: No Clubbing, Cyanosis, - - trace ankle edema b/l Skin: No Nodules or Sclerosis, - - left leg wound was just dressed by surgery and was not uncovered again today Neurological: Alert and Oriented x 3, NL Muscle Strength and Tone Result Diagrams: 11/24/18 07:03 11/24/18 07:02 Microbiology and Other Data: Microbiology 11/22/18 02:45 Stool Gross Appearance - Final Stool Shiga Toxin I & II - Final 11/22/18 02:45 Stool Occult Blood (SARINA) - Final Stool 11/22/18 02:45 Stool Gross Appearance - Final Stool C. difficile DNA Amplification - Final 027 Presumptive NEGATIVE Toxigenic C.diff NEGATIVE Assess/Plan/Problems-Billing Assessment: Ms. Arce is a 63 yo female with a PMH for chronic back pain, HFpEF, CAD, DM II, and provoked DVT who is admitted for diarrhea and cellulitis around a cut on her leg - Patient Problems (1) Cellulitis Comment: with a small subcu abscess drained by Dr. Magdaleno. cont local care. Cx from wound growing Strep intermedius, will switch Doxy to Levaquin (2) Bloody diarrhea Comment: improving stool cx neg C. diff neg cont probiotic, d/c Flagyl, start imodium prn Blood in stool resolved-Hb WNL (3) CHF (congestive heart failure) Comment: - No evidence of acute exacerbation - Echo showed EF 50-55%, atrial dilation in 08/2018 - Continue metoprolol, losartan (4) Chronic pain Comment: - Continue home dose of oxycodone (5) Hypertension Comment: - Cont lopressor, losartan, cardizem-controlled (6) Hypothyroidism Comment: - Continue levothyroxine (7) Diabetes Comment: - type 2 - Continue Lispro SS, metformin held (8) DVT prophylaxis Comment: Lovenox Status and Disposition: inpatient, plan to go to [facility] at d/c , medically ready for discharge
[2018-11-25] MEDS: metFORMIN* 500 MG TAB PO SCH (16:38)
[2018-11-25] MEDS: Enoxaparin(*) 40 MG/0.4 ML SYR SUBCUT SCH (18:06)
[2018-11-25] MEDS: Atorvastatin* 20 MG TAB PO SCH (19:42)
[2018-11-25] MEDS: Zolpidem TAB* 10 MG PO PRN (22:00)
[2018-11-26] MEDS: oxyCODONE TAB* 5 MG TAB PO PRN ×8 (02:10→21:45)
[2018-11-26] MEDS: Levothyroxine TAB* 75 MCG TAB PO SCH (05:50)
[2018-11-26 05:51] LABS: Albumin 3.6 g/dL (3.2-5.2); CO2 Carbon Dioxide 22 mmol/L (22-32); Chloride 100 mmol/L (101-111); Sodium 133 mmol/L (135-145)
[2018-11-26 05:53] LABS: Anion Gap 11 mmol/L (2-11)
[2018-11-26 05:57] LABS: ALT 61 U/L (7-52); Albumin/Globulin Ratio 1.1 (1-3); Alkaline Phosphatase 124 U/L (34-104); BUN/Creatinine Ratio 23.4 (8-20); Blood Urea Nitrogen 15 mg/dL (6-24); EGFR African American 112.7 (>60); EGFR Non-African American 93.1 (>60); Globulin 3.4 g/dL (2-4); Glucose 246 mg/dL (70-100)
[2018-11-26] MEDS: Insulin LISPRO* 1 UNITS UNIT SUBCUT SCH ×4 (07:41→21:53)
[2018-11-26] MEDS: metroNIDAZOLE TAB* 250 MG PO SCH (08:17)
[2018-11-26] MEDS: Prenatal Vitamin TAB PO SCH (08:19)
[2018-11-26] MEDS: Lactobacillus Acidophilus* 1 TAB PO SCH ×2 (08:19→19:44)
[2018-11-26] MEDS: LORazepam TAB(*) 1 MG PO SCH ×2 (08:19→19:45)
[2018-11-26] MEDS: Diltiazem CD CAP* 240 MG PO SCH (08:21)
[2018-11-26] MEDS: Losartan TAB* 25 MG PO SCH (08:22)
[2018-11-26] MEDS: Aspirin 81 mg CHEW TAB* 81 MG TAB.CHEW PO SCH (08:25)
[2018-11-26] MEDS: Metoprolol Tartrate TAB* 25 MG PO SCH ×2 (08:26→19:44)
[2018-11-26] MEDS: Gabapentin CAP(*) 100 MG PO SCH ×3 (08:28→19:44)
[2018-11-26] MEDS: Pantoprazole TAB * 40 MG TAB PO SCH (08:28)
[2018-11-26] MEDS: metFORMIN* 1,000 MG TAB PO SCH (08:29)
--- NOTE | 2018-11-26 09:40 | PN ---
Subjective Date of Service: 11/26/18 Interval History: Pt stated that she has had 8 loose BM's in the past 24H, denies abd pain, thinks that the diarrhea may be due to her IBS. No more blood in stool Objective Active Medications: Aspirin (Aspirin 81 Mg Chew Tab*) 81 mg PO DAILY [facility] Last Admin: 11/26/18 08:25 Dose: 81 mg Atorvastatin Calcium (Lipitor*) 20 mg PO BEDTIME [facility] Last Admin: 11/25/18 19:42 Dose: 20 mg Dextrose (D50w Syringe 50 Ml*) 12.5 gm IV PUSH .FOR FS < 60 - SS PRN PRN Reason: FS < 60 Diltiazem HCl (Cardizem Cd Cap*) 240 mg PO DAILY [facility] Last Admin: 11/26/18 08:21 Dose: 240 mg Enoxaparin Sodium (Lovenox(*)) 40 mg SUBCUT Q24H [facility] Last Admin: 11/25/18 18:06 Dose: 40 mg Gabapentin (Neurontin Cap(*)) 100 mg PO TID [facility] Last Admin: 11/26/18 08:28 Dose: 100 mg Insulin Human Lispro (Humalog*) 0 units SUBCUT ACHS [facility]; Protocol Last Admin: 11/26/18 07:41 Dose: Not Given Lactobacillus Rhamnosus (Lactobacillus Acidophilus*) 1 tab PO BID [facility] Last Admin: 11/26/18 08:19 Dose: 1 tab Levofloxacin (Levaquin Tab*) 500 mg PO Q24H [facility]; Protocol Last Admin: 11/25/18 15:39 Dose: 500 mg Levothyroxine Sodium (Synthroid Tab*) 75 mcg PO DAILY@0600 [facility] Last Admin: 11/26/18 05:50 Dose: 75 mcg Loperamide HCl (Imodium Cap*) 2 mg PO DAILY PRN PRN Reason: IF > 4X BM PER DAY Lorazepam (Ativan Tab(*)) 1 mg PO BID [facility] Last Admin: 11/26/18 08:19 Dose: 1 mg Losartan Potassium (Cozaar Tab*) 50 mg PO QAM [facility] Last Admin: 11/26/18 08:22 Dose: 50 mg Metformin HCl (Glucophage*) 1,000 mg PO DAILY WITH MEAL [facility] Last Admin: 11/26/18 08:29 Dose: 1,000 mg Metformin HCl (Glucophage*) 500 mg PO DAILY@1700 [facility] Last Admin: 11/25/18 16:38 Dose: 500 mg Metoprolol Tartrate (Lopressor Tab*) 25 mg PO BID [facility] Last Admin: 11/26/18 08:26 Dose: 25 mg Multivitamins ( Vitamin Tab*) 1 tab PO DAILY [facility] Last Admin: 11/26/18 08:19 Dose: 1 tab Oxycodone HCl (Roxycodone Tab*) 15 mg PO Q4H PRN PRN Reason: PAIN Last Admin: 11/26/18 06:23 Dose: 15 mg Oxycodone HCl (Roxycodone Tab*) 5 mg PO Q6H PRN PRN Reason: PAIN Last Admin: 11/26/18 08:44 Dose: 5 mg Pantoprazole Sodium (Protonix Tab*) 40 mg PO DAILY [facility] Last Admin: 11/26/18 08:28 Dose: 40 mg Zolpidem Tartrate (Ambien Tab*) 10 mg PO BEDTIME PRN PRN Reason: SLEEP Last Admin: 11/25/18 22:00 Dose: 10 mg Vital Signs - 8 hr 11/26/18 11/26/18 11/26/18 02:17 03:15 04:17 Temperature 97.9 F Pulse Rate 65 Respiratory 18 16 16 Rate Blood Pressure 153/68 (mmHg) O2 Sat by Pulse 95 Oximetry 11/26/18 11/26/18 11/26/18 06:23 08:00 08:19 Temperature 98.2 F Pulse Rate 60 Respiratory 18 16 16 Rate Blood Pressure 181/66 (mmHg) O2 Sat by Pulse 93 Oximetry 11/26/18 11/26/18 11/26/18 08:28 08:32 08:44 Temperature Pulse Rate Respiratory 16 16 16 Rate Blood Pressure (mmHg) O2 Sat by Pulse Oximetry Oxygen Devices in Use Now: None Appearance: 63 yo f in nAD, aAOx3 Eyes: No Scleral Icterus, PERRLA Ears/Nose/Mouth/Throat: NL Teeth, Lips, Gums, Mucous Membranes Moist Neck: NL Appearance and Movements; NL JVP, Trachea Midline Respiratory: Symmetrical Chest Expansion and Respiratory Effort, Clear to Auscultation Cardiovascular: NL Sounds; No Murmurs; No JVD, RRR Abdominal: NL Sounds; No Tenderness; No Distention, No Hepatosplenomegaly Lymphatic: No Cervical Adenopathy Extremities: No Clubbing, Cyanosis Skin: No Nodules or Sclerosis, - - left leg laceration with skin defect of 1x8 cm -shallow, covered with slough, mild erythema surrounding the area at 3 cm in diam Neurological: Alert and Oriented x 3, NL Muscle Strength and Tone Result Diagrams: 11/24/18 07:03 11/26/18 06:36 Microbiology and Other Data: Microbiology 11/22/18 02:45 Stool Gross Appearance - Final Stool Shiga Toxin I & II - Final 11/22/18 02:45 Stool Occult Blood (SARINA) - Final Stool 11/22/18 02:45 Stool Gross Appearance - Final Stool C. difficile DNA Amplification - Final 027 Presumptive NEGATIVE Toxigenic C.diff NEGATIVE Assess/Plan/Problems-Billing Assessment: Ms. Arce is a 63 yo female with a PMH for chronic back pain, HFpEF, CAD, DM II, and provoked DVT who is admitted for diarrhea and cellulitis around a cut on her leg - Patient Problems (1) Cellulitis Comment: with a small subcu abscess drained by Dr. Magdaleno. cont local care. Cx from wound growing Strep intermedius, cont Levaquin x 2 more days then stop (2) Bloody diarrhea Comment: blood in stool resolved stool cx neg C. diff neg cont probiotic, d/c Flagyl, start imodium prn Hb WNL (3) CHF (congestive heart failure) Comment: - No evidence of acute exacerbation - Echo showed EF 50-55%, atrial dilation in 08/2018 - Continue metoprolol, losartan (4) Chronic pain Comment: - Continue home dose of oxycodone (5) Hypertension Comment: - Cont lopressor, losartan, cardizem-controlled (6) Hypothyroidism Comment: - Continue levothyroxine (7) Diabetes Comment: - type 2 - Continue Lispro SS, metformin held (8) DVT prophylaxis Comment: Lovenox Status and Disposition: inpatient, plan to go to [facility] at d/c , medically ready for discharge
[2018-11-26] MEDS: Levofloxacin TAB* 500 MG PO SCH (16:48)
[2018-11-26] MEDS: metFORMIN* 500 MG TAB PO SCH (16:49)
[2018-11-26] MEDS: Enoxaparin(*) 40 MG/0.4 ML SYR SUBCUT SCH (17:20)
[2018-11-26] MEDS: Atorvastatin* 20 MG TAB PO SCH (19:44)
[2018-11-26] MEDS: Zolpidem TAB* 10 MG PO PRN (21:45)
[2018-11-27] MEDS: oxyCODONE TAB* 5 MG TAB PO PRN ×3 (02:24→11:41)
[2018-11-27] MEDS: Levothyroxine TAB* 75 MCG TAB PO SCH (05:28)
[2018-11-27 06:48] LABS: ABS Eosinophils 0.1 10^3/ul (0-0.6); ABS Lymphocytes 2.3 10^3/ul (1.0-4.8); ABS Monocytes 0.5 10^3/ul (0-0.8); ABS Neutrophils 3.3 10^3/ul (1.5-7.7); Eosinophil % 0.9 %; Hematocrit 40 % (35-47); Hemoglobin 13.7 g/dL (12.0-16.0); Lymphocyte % 37.9 %; Mean Corpuscular HGB Conc 34 g/dL (31-36); Mean Corpuscular Hemoglobin 32 pg (27-31); Mean Corpuscular Volume 94 fL (80-97); Platelet Count 269 10^3/uL (150-450); Red Cell Distribution Width 17 % (10-15); White Blood Count 6.2 10^3/uL (3.5-10.8)
[2018-11-27 07:01] LABS: BUN/Creatinine Ratio 29.5 (8-20); Calcium 9.2 mg/dL (8.6-10.3); EGFR African American 119.1 (>60); EGFR Non-African American 98.4 (>60); Potassium 4.4 mmol/L (3.5-5.0)
--- NOTE | 2018-11-27 07:44 | PN ---
Subjective Date of Service: 11/27/18 Objective Active Medications: Aspirin (Aspirin 81 Mg Chew Tab*) 81 mg PO DAILY [facility] Last Admin: 11/26/18 08:25 Dose: 81 mg Atorvastatin Calcium (Lipitor*) 20 mg PO BEDTIME [facility] Last Admin: 11/26/18 19:44 Dose: 20 mg Dextrose (D50w Syringe 50 Ml*) 12.5 gm IV PUSH .FOR FS < 60 - SS PRN PRN Reason: FS < 60 Diltiazem HCl (Cardizem Cd Cap*) 240 mg PO DAILY [facility] Last Admin: 11/26/18 08:21 Dose: 240 mg Enoxaparin Sodium (Lovenox(*)) 40 mg SUBCUT Q24H [facility] Last Admin: 11/26/18 17:20 Dose: Not Given Gabapentin (Neurontin Cap(*)) 100 mg PO TID [facility] Last Admin: 11/26/18 19:44 Dose: 100 mg Insulin Human Lispro (Humalog*) 0 units SUBCUT ACHS [facility]; Protocol Last Admin: 11/26/18 21:53 Dose: 6 units Lactobacillus Rhamnosus (Lactobacillus Acidophilus*) 1 tab PO BID [facility] Last Admin: 11/26/18 19:44 Dose: 1 tab Levofloxacin (Levaquin Tab*) 500 mg PO Q24H [facility]; Protocol Last Admin: 11/26/18 16:48 Dose: 500 mg Levothyroxine Sodium (Synthroid Tab*) 75 mcg PO DAILY@0600 [facility] Last Admin: 11/27/18 05:28 Dose: 75 mcg Loperamide HCl (Imodium Cap*) 2 mg PO DAILY PRN PRN Reason: IF > 4X BM PER DAY Lorazepam (Ativan Tab(*)) 1 mg PO BID [facility] Last Admin: 11/26/18 19:45 Dose: 1 mg Losartan Potassium (Cozaar Tab*) 50 mg PO QAM [facility] Last Admin: 11/26/18 08:22 Dose: 50 mg Metformin HCl (Glucophage*) 1,000 mg PO DAILY WITH MEAL [facility] Last Admin: 11/26/18 08:29 Dose: 1,000 mg Metformin HCl (Glucophage*) 500 mg PO DAILY@1700 [facility] Last Admin: 11/26/18 16:49 Dose: 500 mg Metoprolol Tartrate (Lopressor Tab*) 25 mg PO BID [facility] Last Admin: 11/26/18 19:44 Dose: 25 mg Multivitamins ( Vitamin Tab*) 1 tab PO DAILY [facility] Last Admin: 11/26/18 08:19 Dose: 1 tab Oxycodone HCl (Roxycodone Tab*) 15 mg PO Q4H PRN PRN Reason: PAIN Last Admin: 11/27/18 07:01 Dose: 15 mg Oxycodone HCl (Roxycodone Tab*) 5 mg PO Q6H PRN PRN Reason: PAIN Last Admin: 11/26/18 08:44 Dose: 5 mg Pantoprazole Sodium (Protonix Tab*) 40 mg PO DAILY [facility] Last Admin: 11/26/18 08:28 Dose: 40 mg Zolpidem Tartrate (Ambien Tab*) 10 mg PO BEDTIME PRN PRN Reason: SLEEP Last Admin: 11/26/18 21:45 Dose: 10 mg Vital Signs - 8 hr 11/26/18 11/27/18 11/27/18 23:45 00:00 02:24 Temperature 98.2 F Pulse Rate 64 Respiratory 18 18 18 Rate Blood Pressure 147/74 (mmHg) O2 Sat by Pulse 96 Oximetry 11/27/18 11/27/18 11/27/18 04:00 04:24 07:01 Temperature 98.3 F Pulse Rate 58 Respiratory 18 18 18 Rate Blood Pressure 138/61 (mmHg) O2 Sat by Pulse 94 Oximetry Oxygen Devices in Use Now: None Result Diagrams: 11/27/18 05:46 11/27/18 05:46 Microbiology and Other Data: Microbiology 11/22/18 02:45 Stool Gross Appearance - Final Stool Shiga Toxin I & II - Final 11/22/18 02:45 Stool Occult Blood (SARINA) - Final Stool 11/22/18 02:45 Stool Gross Appearance - Final Stool C. difficile DNA Amplification - Final 027 Presumptive NEGATIVE Toxigenic C.diff NEGATIVE Assess/Plan/Problems-Billing Assessment: Ms. Arce is a 63 yo female with a PMH for chronic back pain, HFpEF, CAD, DM II, and provoked DVT who is admitted for diarrhea and cellulitis around a cut on her leg - Patient Problems (1) Cellulitis Comment: with a small subcu abscess drained by Dr. Magdaleno. cont local care. Cx from wound growing Strep intermedius, cont Levaquin x 2 more days then stop (2) Bloody diarrhea Comment: blood in stool resolved stool cx neg C. diff neg cont probiotic, d/c Flagyl, start imodium prn Hb WNL (3) CHF (congestive heart failure) Comment: - No evidence of acute exacerbation - Echo showed EF 50-55%, atrial dilation in 08/2018 - Continue metoprolol, losartan (4) Chronic pain Comment: - Continue home dose of oxycodone (5) Hypertension Comment: - Cont lopressor, losartan, cardizem-controlled (6) Hypothyroidism Comment: - Continue levothyroxine (7) Diabetes Comment: - type 2 - Continue Lispro SS, metformin (8) DVT prophylaxis Comment: Lovenox Status and Disposition: inpatient, plan to go to [facility] at d/c , medically ready for discharge
--- NOTE | 2018-11-27 08:19 | PN ---
<DerasDannyCarmel - Last Filed: 11/27/18 14:41> Progress Note - Progress Note Date of Service: 11/27/18 Note: S: This is a 63 y/o female post I&D of a Left lower extremity laceration/ contusion by Dr. Magdaleno on 23NOV2018. Left lower leg pain continues to be a 7 /10 on maintenance dose of oxycodone 15mg q 4 hours, but is a 5/10 when using breakthrough pain dose of oxycodone 5mg q 6 hours. The patients antibiotic was changed on 25NOV2018 from doxycycline to levofloxacin. Patient has continued to ambulate without pain. She denies difficulty eating, drinking or voiding. She denies fever, chills, SOB, or chest pain. Active medications are as follows: Aspirin (Aspirin 81 Mg Chew Tab*) 81 mg PO DAILY [facility] Last Admin: 11/27/18 09:43 Dose: 81 mg Atorvastatin Calcium (Lipitor*) 20 mg PO BEDTIME [facility] Last Admin: 11/26/18 19:44 Dose: 20 mg Dextrose (D50w Syringe 50 Ml*) 12.5 gm IV PUSH .FOR FS < 60 - SS PRN PRN Reason: FS < 60 Diltiazem HCl (Cardizem Cd Cap*) 240 mg PO DAILY [facility] Last Admin: 11/27/18 09:42 Dose: 240 mg Enoxaparin Sodium (Lovenox(*)) 40 mg SUBCUT Q24H [facility] Last Admin: 11/26/18 17:20 Dose: Not Given Gabapentin (Neurontin Cap(*)) 100 mg PO TID [facility] Last Admin: 11/27/18 14:42 Dose: 100 mg Insulin Human Lispro (Humalog*) 0 units SUBCUT ACHS [facility]; Protocol Last Admin: 11/27/18 13:19 Dose: 6 units Lactobacillus Rhamnosus (Lactobacillus Acidophilus*) 1 tab PO BID [facility] Last Admin: 11/27/18 09:40 Dose: 1 tab Levofloxacin (Levaquin Tab*) 500 mg PO Q24H [facility]; Protocol Last Admin: 11/27/18 14:41 Dose: 500 mg Levothyroxine Sodium (Synthroid Tab*) 75 mcg PO DAILY@0600 [facility] Last Admin: 11/27/18 05:28 Dose: 75 mcg Loperamide HCl (Imodium Cap*) 2 mg PO DAILY PRN PRN Reason: IF > 4X BM PER DAY Lorazepam (Ativan Tab(*)) 1 mg PO BID [facility] Last Admin: 11/27/18 09:37 Dose: 1 mg Losartan Potassium (Cozaar Tab*) 50 mg PO QAM [facility] Last Admin: 11/27/18 09:40 Dose: 50 mg Metformin HCl (Glucophage*) 1,000 mg PO DAILY WITH MEAL [facility] Last Admin: 11/27/18 09:38 Dose: 1,000 mg Metformin HCl (Glucophage*) 500 mg PO DAILY@1700 [facility] Last Admin: 11/26/18 16:49 Dose: 500 mg Metoprolol Tartrate (Lopressor Tab*) 25 mg PO BID [facility] Last Admin: 11/27/18 09:43 Dose: 25 mg Multivitamins ( Vitamin Tab*) 1 tab PO DAILY [facility] Last Admin: 11/27/18 09:45 Dose: 1 tab Oxycodone HCl (Roxycodone Tab*) 15 mg PO Q4H PRN PRN Reason: PAIN Last Admin: 11/27/18 11:41 Dose: 15 mg Oxycodone HCl (Roxycodone Tab*) 5 mg PO Q6H PRN PRN Reason: PAIN Last Admin: 11/26/18 08:44 Dose: 5 mg Pantoprazole Sodium (Protonix Tab*) 40 mg PO DAILY [facility] Last Admin: 11/27/18 09:43 Dose: 40 mg Zolpidem Tartrate (Ambien Tab*) 10 mg PO BEDTIME PRN PRN Reason: SLEEP Last Admin: 11/26/18 21:45 Dose: 10 mg O: Vital Signs Temp 98.1 F 11/27/18 11:05 Pulse 63 11/27/18 11:05 Resp 16 11/27/18 14:42 BP 132/62 11/27/18 11:05 Pulse Ox 94 11/27/18 11:05 Intake & Output 11/26/18 11/27/18 11/27/18 18:59 06:59 18:59 Intake Total [id number] Output Total 1250 300 300 Balance -770 180 900 Intake: Oral [id number] Output: Urine 1250 300 300 Other: # Bowel Movements 1 Estimated Stool Amount Large General: The patient is laying supine comfortably in bed in no acute distress. A &O x 3. Cardio: Normal rate and rhythm. S1 and S2 auscultated without S3 or S4 auscultated. No murmurs, rubs or gallops. Respiratory: Lung sounds are clear to auscultation in all lung velasco B/L. Left Lower Extremity: Located mid shaft on the left lower extremity, there is a superficial laceration approx [id number] in size that is covered with fibrinous exudate. There continues to be an area of erythema surrounding the laceration. However, this erythema has receded since 25NOV2018 and is well within the limits drawn by Dr. Magdaleno on 23NOV2018. The surrounding erythema currently is approx [id number], which is smaller than the surrounding erythema on 25NOV2018 of [id number]. The area above the laceration, located proximally, is no longer fluctuant. The patient experiences pain with palpation surrounding the laceration, especially medially. No purulent drainage can be expressed when pressing around the laceration. No lymphatic streaking or peripheral edema is noted. Dorsalis pedis pulse is 2+ and regular. Dressing was changed today 27NOV2018. A: Left lower extremity contusion/laceration s/p superficial I&D with surrounding erythema, improving slightly. P: Due to the lack of fluctuance and receding erythema surrounding the laceration site, the site appears to be healing appropriately without concern for cellulitis or abscess formation. Patient is capable of dressing changes on her own. Patient can be discharged following her providers instructions for discharge. She may follow up with her primary care provider for the laceration. Return to ER and consult with surgical team if laceration is not healing properly, fever, chills, expanding erythema or cellulitis occur. <Zhen Mantilla - Last Filed: 12/01/18 08:47> Progress Note - Progress Note Note: Patient also seen by myself. I agree with the above assessment and plan as documented by PA student Carmel Deras.
[2018-11-27] MEDS: Insulin LISPRO* 1 UNITS UNIT SUBCUT SCH ×2 (09:35→13:19)
[2018-11-27] MEDS: LORazepam TAB(*) 1 MG PO SCH (09:37)
[2018-11-27] MEDS: metFORMIN* 1,000 MG TAB PO SCH (09:38)
[2018-11-27] MEDS: Gabapentin CAP(*) 100 MG PO SCH ×2 (09:39→14:42)
[2018-11-27] MEDS: Losartan TAB* 25 MG PO SCH (09:40)
[2018-11-27] MEDS: Lactobacillus Acidophilus* 1 TAB PO SCH (09:40)
[2018-11-27] MEDS: Diltiazem CD CAP* 240 MG PO SCH (09:42)
[2018-11-27] MEDS: Pantoprazole TAB * 40 MG TAB PO SCH (09:43)
[2018-11-27] MEDS: Metoprolol Tartrate TAB* 25 MG PO SCH (09:43)
[2018-11-27] MEDS: Aspirin 81 mg CHEW TAB* 81 MG TAB.CHEW PO SCH (09:43)
[2018-11-27] MEDS: Prenatal Vitamin TAB PO SCH (09:45)
[2018-11-27 11:51] VITALS: BP 132/62
--- NOTE | 2018-11-27 13:04 | DS ---
CC: Dr. Cavanaugh; Dr. Magdaleno * DISCHARGE SUMMARY: DATE OF ADMISSION: 11/22/18 DATE OF DISCHARGE: 11/27/18 PRIMARY CARE PROVIDER: Dr. Cavanaugh. DISCHARGE DIAGNOSES: 1. Status post fall with laceration to the left rush, cellulitis and abscess in the area, status post I and D performed by Dr. Magdaleno on 11/23/18. Cultures are growing Streptococcus intermedius. 2. Bloody diarrhea reported by the patient with negative infectious workup, stool negative for C. diff or any other enteric pathogens. SECONDARY DIAGNOSES: 1. History of chronic pain, on chronic narcotics. 2. Diastolic congestive heart failure. 3. History of coronary artery disease. 4. Diabetes type 2, not on insulin. 5. Hyperlipidemia. 6. 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 7. Morbid obesity. 8. Hypothyroidism. 9. History of gallstone pancreatitis. Apparently, the patient did not have cholecystectomy. MEDICATIONS AT DISCHARGE: Include: 1. Aspirin 81 mg daily. 2. Vitamin D3 2000 units daily. 3. Avapro 150 mg q.a.m. 4. Ativan 1 mg b.i.d. p.r.n. 5. Metformin 1000 mg in the morning and 500 mg at night. 6. Multivitamin 1 tablet daily. 7. Simvastatin 40 mg at bedtime. 8. Ambien 10 mg at bedtime p.r.n. 9. Cardizem CD 240 mg daily. 10. Neurontin 100 mg 3 times a day. 11. Probiotic 1 capsule b.i.d. 12. Levaquin 500 mg every 24 hours for a total of 5 days, then stop. 13. Synthroid 75 mcg daily. 14. Imodium 2 mg daily for more than 4 stools a day. 15. Metoprolol tartrate 25 mg b.i.d. 16. Oxycodone 15 mg every 4 hours p.r.n. as previously taken. CONDITION AT DISCHARGE: Stable. DISPOSITION AT DISCHARGE: To home. The patient refused to be placed in a rehabilitation facility. LABORATORY DATA AND STUDIES PERFORMED DURING THE HOSPITAL STAY: On 11/27/18, white blood cell count of 6.2, hemoglobin of 13.7, hematocrit of 40, and platelets of 269. Sodium was 135, potassium 4.4, chloride 99, carbon dioxide 27 , BUN 18, creatinine 0.61. Liver function tests showed total bilirubin of 0.4, AST 121, ALT 61, and alkaline phosphatase of 124. C-reactive protein was 18.1 at admission. Microbiology tests showed wound cultures positive for Streptococcus intermedius. Stool cultures negative for enteric pathogens and C. diff negative. Blood cultures were negative. Stool for occult blood was positive at admission. CONSULTATION DURING THE HOSPITAL STAY: Included Dr. Magdaleno from Surgery, who performed an I and D of the left rush abscess on the patient's leg on . HOSPITALIZATION COURSE: A 63-year-old female with a history of chronic pain, diabetes, who just was discharged from rehab from [facility] and spent a week and a half at home, fell and lacerated her left rush. She came into the hospital complaining of pain on the left rush after the laceration as well as bloody diarrhea. The patient was admitted to the hospital. Despite her initial stool being heme-positive, she never became anemic and the blood in diarrhea resolved after an initial couple of days of hospital stay. She had mild elevation of LFTs and please note that this is chronic for this patient. It is advised for the patient to have a repeat complete metabolic panel drawn in the future for followup of the abnormal LFTs. In regards to the patient's diarrhea, the patient was placed empirically on Flagyl, although no enteric pathogen was identified. The patient did well, and by the time of discharge, she had a few loose bowel movements today, but definitely not up to 20 when she reported at admission. The patient also stated that she has a history of irritable bowel syndrome and was advised to use Imodium on an as needed basis. In regards to her left leg laceration, she had a very superficial abscess on her left rush, which I and D'd by Dr. Magdaleno during the hospital stay. Cultures from the purulent discharge grew Streptococcus intermedius. Interestingly enough, the patient was treated with doxycycline after the point of the cultures becoming positive and streptococcus that grew from the purulent discharge is actually resistant to tetracyclines. Nevertheless, the patient's wound and mild cellulitis surrounding the wound improved just with surgical treatment. After the wound cultures were reported positive for streptococcus, the patient's antibiotic was changed to Levaquin and that is in consideration of the patient's multiple drug allergies. She furthermore did very well. By the time of discharge, her wound is healing well. She was recommended by the surgical service to shower or sponge bathe and apply once daily antibiotic ointment and nonstick pad and wrap with gauze with or without Renny bandage. The patient was recommended to follow up with [facility] as needed. During the patient's hospital stay, initially it was noted that the patient was very deconditioned and she would benefit from occupational therapy at a rehabilitation place. Initially, she agreed to be placed in a rehabilitation place and that delayed the patient's discharge as we were waiting for available bed. By the time she was ready to be discharged to a facility and there was actually a facility interested with the patient, the patient refused to be placed anymore and decided to go home. She is going to be discharged home with recommendation to follow up with her primary care provider in approximately 4 to 7 days. PHYSICAL EXAMINATION: At the time of discharge, blood pressure 132/62, heart rate of 63 and regular, respiratory rate 18, oxygen saturation 94% on room air, temperature 98.1. General: The patient is a pleasant 63-year-old morbidly obese female, who is in no acute distress. Alert, awake, and oriented x3. HEENT: Head: Atraumatic, normocephalic. Eyes: Pupils are equal and reactive to light and accommodation. Oropharynx is clear. Mucosa moist. Neck: Supple. No JVD. No bruits bilaterally. Cardiovascular: Regular rate and rhythm. No murmur. Respiratory: Clear to auscultation bilaterally. Abdomen: Soft, nontender. Bowel sounds are present in all 4 quadrants. Extremities: There is trace ankle edema bilaterally. Pulses are +2 bilaterally. There is no clubbing or cyanosis. On evaluation of the skin, there is a horizontal laceration to the left rush of approximately 1 cm in width and 8 cm in length. It is very superficial with a skin defect area covered with slough that is wet and serous draining. There is a very scant area of erythema that appears chronic and not due to acute cellulitis surrounding the area. Psychiatric Evaluation: Oriented x3 with no evidence of anxiety or depression. DISPOSITION AT DISCHARGE: Home. CONDITION AT DISCHARGE: Stable. Please note that this is a short summary of the patient's hospitalization. Please refer to further medical records for details. TIME SPENT: Approximately 40 minutes was spent on the patient's discharge. [id number]/[facility] #: [id number] KARRI
[2018-11-27] MEDS: Levofloxacin TAB* 500 MG PO SCH (14:41)
== END 2018-11-27 14:58 | disposition home or self-care (01) | DRG 603 ==
LOC: ED 19:25 → OBSVTOIN 11-22 09:29 → MEDTELE 11-22 09:29 → UNDOADMOB 11-22 09:29 → INTOOBSV 11-22 09:29 → MEDTELE 11-22 11:03 → INTOOBSV 11-23 12:40 → OBSVTOIN 11-23 12:40 → UNDODISOB 11-27 14:58
PROVIDERS: ADMIT Internal Medicine; ATTEND Internal Medicine
DX: L03.116 Cellulitis of left lower limb (principal); I50.32 Chronic diastolic (congestive) heart failure; Z68.42 Body mass index [BMI] 45.0-49.9, adult; K92.1 Melena; E66.01 Morbid (severe) obesity due to excess calories; G89.29 Other chronic pain; I25.10 Atherosclerotic heart disease of native coronary artery without angina pectoris; E11.9 Type 2 diabetes mellitus without complications; E03.9 Hypothyroidism, unspecified; I11.0 Hypertensive heart disease with heart failure; L02.416 Cutaneous abscess of left lower limb; S81.812A Laceration without foreign body, left lower leg, initial encounter; R19.7 Diarrhea, unspecified; B95.4 Other streptococcus as the cause of diseases classified elsewhere; E78.5 Hyperlipidemia, unspecified; K58.9 Irritable bowel syndrome, unspecified; W18.30XA Fall on same level, unspecified, initial encounter; Z96.653 Presence of artificial knee joint, bilateral; Z96.641 Presence of right artificial hip joint; Y92.009 Unspecified place in unspecified non-institutional (private) residence as the place of occurrence of the external cause; Z95.0 Presence of cardiac pacemaker; Z79.84 Long term (current) use of oral hypoglycemic drugs; Z79.82 Long term (current) use of aspirin; Z79.891 Long term (current) use of opiate analgesic; Z79.899 Other long term (current) drug therapy; Z88.6 Allergy status to analgesic agent; Z88.1 Allergy status to other antibiotic agents; Z88.0 Allergy status to penicillin; Z88.2 Allergy status to sulfonamides; Z88.8 Allergy status to other drugs, medicaments and biological substances; Z82.49 Family history of ischemic heart disease and other diseases of the circulatory system
CPT/HCPCS: 36415; 70450; 74177; 80048; 80053; 81003; 81015; 82270; 83036; 83690; 85025; 86140; 87040; 87045; 87046; 87070; 87077; 87186; 87205; 87493; 87899; 99283; A9270-GY; G0378; G8978-GP-CI; G8978-GP-CJ; G8979-GP-CI; G8980-GP-CI; G8987-GO-CJ; G8988-GO-CH; J1200; J1650; J2405; Q9967

== ENCOUNTER 2018-12-06 01:32 | Inpatient (IN) | payer MEDICARE, MEDICAID ==
--- NOTE | 2018-12-06 01:56 | ED ---
Lower Extremity - HPI Summary HPI Summary: This patient is a 63 year old F presenting to ED with a chief complaint of gash on her LLE since a couple weeks ago that is not healing and worsening a couple days ago. Patient was here last week and took antibiotics that she finished four days ago. She reports the gash is starting to get red and hurt again. The pain radiates to the calf. The patient rates the pain 6/10 in severity. Symptoms aggravated by nothing. Symptoms alleviated by nothing. Patient reports fever, chills, diaphoresis. - History of Current Complaint Chief Complaint: EDExtremityLower Stated Complaint: GASH ON LEG PER PT Time Seen by Provider: 12/06/18 01:48 Hx Obtained From: Patient Onset/Duration: Still Present Severity Initially: Moderate Severity Currently: Moderate Pain Intensity: 6 Pain Scale Used: 0-10 Numeric Timing: Constant Location: Radiates To - Laceration on front of LLE, pain radiates to calf Associated Signs And Symptoms: Positive: Fever, Other - Chills, diaphoresis Aggravating Factor(s): Nothing Alleviating Factor(s): Nothing - Allergies/Home Medications Allergies/Adverse Reactions: Allergies Allergy/AdvReac Type Severity Reaction Status Date / Time cefazolin [From Ancef] Allergy Unknown Verified 11/21/18 19:39 Reaction Details citalopram [From Celexa] Allergy Insomnia Verified 11/21/18 19:39 naproxen Allergy Vomiting Verified 11/21/18 19:39 NSAIDS (Non-Steroidal Allergy GI Upset Verified 11/21/18 19:39 Anti-Inflamma Penicillins Allergy Rash Verified 11/21/18 19:39 Sulfa (Sulfonamide Allergy Unknown Verified 11/21/18 19:39 Antibiotics) Reaction Details zaleplon [From Sonata] Allergy Insomnia Verified 11/21/18 19:39 PMH/Surg Hx/FS Hx/Imm Hx Endocrine/Hematology History: Reports: Hx Blood Transfusions, Hx Diabetes, Hx Thyroid Disease Denies: Hx Anticoagulant Therapy, Hx Blood Disorders, Hx Bone Marrow Disease , Hx Systemic Lupus Erythematosus, Hx Sickle Cell Disease, Hx Anemia, Hx Unexplained Bleeding, Other Endocrine/Hematological Disorders Cardiovascular History: Reports: Hx Angina, Hx Auto Implanted Cardiovert Defib, Hx Cardiomegaly - SINCE IN HER TEENS, 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, Hx Congestive Heart Failure, Hx Coronary Artery Disease, Hx Deep Vein Thrombosis, Hx Embolism, Hx Hypertension, Hx Pacemaker/ICD, Other Cardiovascular Problems/Disorders - pericarditis Denies: Hx Aneurysm, Hx Angioplasty, Hx Cardiac Arrest, Hx Hypercholesterolemia, Hx Hypotension, Hx Myocardial Infarction, Hx Peripheral Vascular Disease, Hx Rheumatic Fever, Hx Syncope, Hx Valvular Heart Disease Respiratory History: Reports: Hx Chronic Bronchitis, Hx Pneumonia, Hx Pulmonary Edema, Other Respiratory Problems/Disorders - sob associated - inspiratory pain left ribs, abdominal distention per pt Denies: Hx Asthma, Hx Bronchopulmonary Dysplasia, Hx Chronic Obstructive Pulmonary Disease (COPD), Hx Cystic Fibrosis, Hx Lung Cancer, Hx Pleural Effusion, Hx Pulmonary Embolism, Hx Seasonal Allergies, Hx Sleep Apnea GI History: Reports: Hx Gastroesophageal Reflux Disease, Hx Gastrointestinal Bleed, Hx Hiatal Hernia, Hx Irritable Bowel, Other GI Disorders - ABDOMEN DISTENDED, IBS Denies: Hx Cirrhosis, Hx Crohn's Disease, Hx Diverticulosis, Hx Gall Bladder Disease, Hx Jaundice, Hx Obstructive Bowel, Hx Ileostomy, Hx Pyloric Stenosis, Hx Ulcer History: Denies: Hx Acute Renal Failure, Hx Benign Prostatic Hyperplasia, Hx Chronic Renal Failure, Hx Dialysis, Hx Kidney Infection, Hx Kidney Stones, Hx Renal Disease, Other Problems/Disorders Musculoskeletal History: Reports: Hx Back Problems - back surgery x 3, Hx Orthopedic Injury - knee, hip surgery hx, Other Musculoskeletal History - knee, hip surgery hx Denies: Hx Arthritis, Hx Bursitis, Hx Congenital Bone Abnormalities, Hx Fibromyalgia, Hx Gout, Hx Osteoporosis, Hx Scoliosis, Hx Tendonitis Sensory History: Reports: Hx Contacts or Glasses Denies: Hx Cataracts, Hx Eye Injury, Hx Eye Prosthesis, Hx Glaucoma, Hx Legally Blind, Hx Macular Degeneration, Hx Vision Problem, Hx Deafness, Hx Hearing Aid, Hx Hearing Problem, Other Sensory Impairments Opthamlomology History: Reports: Hx Contacts or Glasses Denies: Hx Cataracts, Hx Eye Injury, Hx Eye Prosthesis, Hx Glaucoma, Hx Legally Blind, Hx Macular Degeneration, Hx Vision Problem, Other Sensory Impairments Neurological History: Denies: Hx Dementia, Hx Developmental Delay, Hx Headaches, Hx Migraine, Hx Nerve Disease, Hx Seizures, Hx Spinal Cord Injury, Hx Transient Ischemic Attacks (TIA), Other Neuro Impairments/Disorders - LOC WITH FALLL Psychiatric History: Reports: Hx Anxiety Denies: Hx Attention Deficit Hyperactivity Disorder, Hx Autism, Hx Eating Disorder, Hx Oppositional [place] Disorder, Hx Depression, Hx Panic Disorder, Hx Post Traumatic Stress Disorder, Hx Inpatient Treatment, Hx Community Mental Health Tx, Hx Schizophrenia, Hx Bipolar Disorder, Hx Suicide Attempt, Hx of Violent Episodes Against Others, Hx Substance Abuse, Other Psychiatric Issues/ Disorders - Cancer History Cancer Type, Location and Year: skin cancer on right leg, removed Hx Hematologic Symptoms: No Hx Chemotherapy: No Hx Radiation Therapy: No Hx Palliative Cancer Treatment: No - Surgical History Surgery Procedure, Year, and Place: left shoulder surgery Jul 08 2013 csections x 3. partial hysterectomy. 3 back surgeries, hardwear in place. right hip REPLACEMENT. LEFT KNEE RECONSTRUCTION. PACEMAKER PLACED-ISAURO- 2011. 3 C-SECTIONS. RIGHT SHOULDER ROTATOR CUFF REPAIR - 15 YEARS AGO. UMBILICAL HERNIA REPAIR Hx Anesthesia Reactions: Yes - PROPOFOL REACTION- THRASHING AND SCREAMING - Immunization History Date of Tetanus Vaccine: utd Date of Influenza Vaccine: utd Infectious Disease History: No Infectious Disease History: Reports: Hx Clostridium Difficile, Hx of Known/ Suspected MRSA Denies: Hx Hepatitis, Hx Human Immunodeficiency Virus (HIV), Hx Shingles, Hx Tuberculosis, Hx Known/Suspected VRE, Hx Known/Suspected VRSA, Traveled Outside the [place] in Last 30 Days - Family History Known Family History: Positive: Cardiac Disease - CAD, Diabetes, Other - Breast CA - Social History Alcohol Use: None Hx Substance Use: No Substance Use Type: Reports: None Hx Tobacco Use: No Smoking Status (MU): Never Smoked Tobacco Have You Smoked in the Last Year: No Review of Systems Positive: Fever, Chills, Skin Diaphoresis Skin: Other - Gash on LLE All Other Systems Reviewed And Are Negative: Yes Physical Exam - Summary Physical Exam Summary: Appearance: obese, lying in bed comfortable, no apparent distress Skin: wound on LLE appears to be healing well, no erythema, swelling or discharge Eyes: sclera anicteric, no conjunctival pallor ENT: mucous membranes moist Neck: deferred Respiratory: No signs of respiratory distress Cardiovascular: Appears well perfused, pulses are nml Abdomen: deferred Musculoskeletal: Moving all 4 extremities without obvious discomfort Neurological: Awake and alert, mentation is normal, speech is fluent and appropriate Psychiatric: affect is normal, does not appear anxious or depressed Triage Information Reviewed: Yes Vital Signs On Initial Exam: Initial Vitals Temp Pulse Resp BP Pulse Ox 97 F 71 20 135/66 95 12/06/18 01:37 12/06/18 01:37 12/06/18 01:37 12/06/18 01:37 12/06/18 01:37 Vital Signs Reviewed: Yes Diagnostics - Vital Signs Vital Signs Temp Pulse Resp BP Pulse Ox 12/06/18 01:37 97 F 71 20 135/66 95 - Laboratory Result Diagrams: 12/06/18 02:33 12/08/18 14:37 Lab Statement: Any lab studies that have been ordered have been reviewed, and results considered in the medical decision making process. Re-Evaluation - Re-Evaluation First Eval Re-Evaluation Time: 03:38 Comment: Discussed results with patient. I reassured her that the wound is healing well. However, patient wants to be admitted to [facility] as she does not feel comfortable at home and would prefer observation. Patient will be admitted with dx of leg pain. Patient understands and agrees with this plan. Lower Extremity Course/Dx - Course Course Of Treatment: This patient is a 63 year old F presenting to ED with a chief complaint of gash on her LLE since a couple weeks ago that is not healing and worsening a couple days ago. I have reviewed her record, she was admitted for this wound earlier this month and had incision and drainage of a small abscess by the general surgeon and grew strep intermedius from the culture. She was treated with appropriate antibiotics and appeared to make a good recovery. Her wound tonight looks great, it is dry, non swollen, not erythematous or warm, though she evinces great pain with even light touch. She told her nurse that she takes chronic opioid therapy and did not take her opioid tonight due to nausea. My suspicion for recurrent infectious problem in this area is extremely low given the complete lack of any objective signs of infection related to this healing wound. I will check a CBC and CRP and medicate her for pain and nausea. In the ED course, patient received Roxycodone and Zofran. Blood work obtained. Discussed results with patient. I reassured her that the wound is healing well. However, patient wants to be admitted to [facility] as she does not feel comfortable at home and would prefer observation and placement in a rehabilitation facility as she is having trouble getting around her home. Patient will be admitted to [facility] as a social admission with dx of leg pain. Patient understands and agrees with this plan. - Diagnoses Provider Diagnoses: Leg pain - Physician Notifications Discussed Care Of Patient With: Lesley Kurtz Time Discussed With Above Provider: 03:43 Instructed by Provider To: Admit As Inpatient - Discussed patient case with Dr. Kurtz, hospitalist, who accepted the patient for admission to [facility]. Discharge - Sign-Out/Discharge Documenting (check all that apply): Patient Departure - Admit Patient Received Moderate/Deep Sedation with Procedure: No - Discharge Plan Condition: Good Disposition: ADMITTED TO [facility] - Billing Disposition and Condition Condition: GOOD Disposition: Admitted to [facility] - Attestation Statements Document Initiated by Amyibe: Yes Documenting Scribe: Dmitri Javed Provider For Whom Amyibe is Documenting (Include Credential): Aries Monte MD Scribe Attestation: Dmitri Perez, scribed for Aries Monte MD on 12/10/18 at 0805. Scribe Documentation Reviewed: Yes Provider Attestation: The documentation as recorded by the Dmitri espino accurately reflects the service I personally performed and the decisions made by me, Aries Monte MD Status of Scribe Document: Viewed
[2018-12-06] MEDS ORDERED: Ondansetron ODT TAB* 4 MG SL ONE (02:00)
[2018-12-06] MEDS ORDERED: oxyCODONE TAB* 5 MG TAB PO ONE (02:00)
[2018-12-06 02:39] LABS: ABS Basophils 0.1 10^3/ul (0-0.2); ABS Monocytes 0.7 10^3/ul (0-0.8); ABS Neutrophils 6.1 10^3/ul (1.5-7.7); Eosinophil % 0.4 %; Hematocrit 38 % (35-47); Hemoglobin 12.6 g/dL (12.0-16.0); Lymphocyte % 22.9 %; Mean Corpuscular HGB Conc 33 g/dL (31-36); Mean Corpuscular Hemoglobin 31 pg (27-31); Mean Corpuscular Volume 94 fL (80-97); Mean Platelet Volume 8.1 fL (7.4-10.4); Nucleated Red Blood Cells % 0.1; Platelet Count 353 10^3/uL (150-450); Red Blood Count 4.08 10^6 /uL (3.70-4.87); Red Cell Distribution Width 17 % (10-15); White Blood Count 8.9 10^3/uL (3.5-10.8)
[2018-12-06 02:57] LABS: BUN/Creatinine Ratio 26.8 (8-20); C Reactive Protein 10.67 mg/L (<8.01); Calcium 9.3 mg/dL (8.6-10.3); EGFR Non-African American 82.6 (>60); Potassium 3.3 mmol/L (3.5-5.0)
[2018-12-06] MEDS ORDERED: Loperamide CAP* 2 MG PO PRN (04:52)
[2018-12-06] MEDS ORDERED: oxyCODONE TAB* 5 MG TAB PO PRN (04:52)
[2018-12-06] MEDS ORDERED: Melatonin 3 MG TAB PO PRN (04:57)
[2018-12-06] MEDS ORDERED: Ondansetron INJ* 2 MG/ML VIAL IV PRN (04:59)
[2018-12-06] MEDS ORDERED: Dextrose 50% VIAL 50 ml IV PUSH PRN (04:59)
[2018-12-06] MEDS: Losartan TAB* 25 MG PO SCH (06:03)
[2018-12-06] MEDS: Enoxaparin(*) 40 MG/0.4 ML SYR SUBCUT SCH (06:04)
[2018-12-06] MEDS: Levothyroxine TAB* 75 MCG TAB PO SCH (06:04)
[2018-12-06] MEDS: metFORMIN* 1,000 MG TAB PO SCH (08:50)
[2018-12-06] MEDS: Diltiazem CD CAP* 240 MG PO SCH (08:50)
[2018-12-06] MEDS: Metoprolol Tartrate TAB* 25 MG PO SCH ×2 (08:50→20:24)
[2018-12-06] MEDS: Cholecalciferol TAB* 1000 UNITS PO SCH (08:50)
[2018-12-06] MEDS: Prenatal Vitamin TAB PO SCH (08:50)
[2018-12-06] MEDS: Potassium Chlor TAB* 20 MEQ TAB.ER PO SCH ×2 (08:51→20:24)
[2018-12-06] MEDS: Aspirin 81 mg CHEW TAB* 81 MG TAB.CHEW PO SCH (08:51)
[2018-12-06] MEDS: Furosemide TAB* 40 MG PO SCH (08:51)
[2018-12-06] MEDS: Gabapentin CAP(*) 100 MG PO SCH ×3 (08:51→20:24)
[2018-12-06] MEDS: Lactobacillus Acidophilus* 1 TAB PO SCH ×2 (08:51→20:24)
[2018-12-06] MEDS: Insulin LISPRO* 1 UNITS UNIT SUBCUT SCH ×3 (08:54→18:12)
--- NOTE | 2018-12-06 10:13 | HP ---
HISTORY AND PHYSICAL: DATE OF ADMISSION: 12/06/18 PRIMARY CARE PROVIDER: Dr. Cavanaugh. ORE ROASTER: Juhi Omer, the patient's mother. CODE STATUS: Full. CHIEF COMPLAINT: Weakness. SOURCE OF INFORMATION: HPI is obtained from the patient. She is a fair historian. HISTORY OF PRESENT ILLNESS: A 63-year-old female with past medical history of chronic back pain, on long-term opiate pain medication; qey-ciepswj-ivggzdskk diabetes; hyperlipidemia; hypertension; coronary artery disease; hypothyroidism ; heart failure with preserved ejection fraction; history of syncope, status post pacemaker; history of gallstone pancreatitis; anxiety, on benzodiazepines, who is presenting to the emergency room this evening with 2 days of weakness, inability to ambulate safely in her home as well as left rush pain. Of note, the patient was recently admitted to the hospital from 11/22/18 until 11/27/18, status post a fall with laceration to the left rush with I and D and discharged to home on antibiotics after refusing discharge to short-term rehab for further rehabilitation from a deconditioning standpoint. The patient returned home after refusing rehabilitation and reports that she has had a difficult time caring for herself, reports taking antibiotics as prescribed, but starting 2 days ago again with redness and pain to left lower extremity area of prior laceration on left rush and felt that she was unable to even bear weight. She took Lasix, which made the pain slightly better, but overall was feeling overwhelmed with the state of her healthcare and decided to present to the emergency room to discuss being reevaluated for a possible short- term rehab evaluation in the setting of acute deconditioning and recent fall. EMERGENCY ROOM COURSE: In the ER, the patient's vital signs are notable for hypertension on admission. Initially, elevated to 235/101, although this was thought to be an error, repeat blood pressure is 147/64 with heart rate 60, oxygen saturation 90% on room air and temperature is 98.1 Labs were done, which showed an unremarkable CBC. A BMP notable for mild hypokalemia to 3.3, otherwise unremarkable. No imaging was done. Physical exam notes 4 cm mildly erythematous, but well-healing area of scar from prior I and D, but otherwise no surrounding fluctuance or tenderness. She does have significant deconditioning and hospitalist team is asked to evaluate the patient for possible usp care in the setting of weakness, inability to care for self at home, and left leg pain in the setting of subacute fall and laceration within the last 3 weeks. PAST MEDICAL HISTORY: Chronic back pain, on long-term opiate medication, status post laminectomy and spinal fusion with Dr. Curiel of [facility]; heart failure with preserved ejection fraction; CAD with no PCI; tym-xkserqw-oklbgspuy diabetes; hyperlipidemia; history of syncope, status post pacemaker; hypothyroidism; obesity; pancreatitis secondary to gallstones, status post percutaneous drainage without removal of gallbladder. PAST SURGICAL HISTORY: Status post bilateral total knee replacements, status post THR on right; status post ; status post left rotator cuff repair; status post lumbar laminectomy; status post pacemaker. MEDICATIONS: 1. Zolpidem 10 mg p.o. b.i.d. 2. Irbesartan 150 mg p.o. q.a.m. 3. Aspirin 81 mg p.o. daily. 4. Vitamin D3 of 2000 units p.o. daily. 5. Diltiazem 240 mg p.o. daily. 6. Gabapentin 100 mg p.o. t.i.d. 7. Lactobacillus acidophilus 1 tab p.o. b.i.d. 8. Levothyroxine 75 mcg daily. 9. Loperamide 2 mg p.o. daily. 10. Lorazepam 1 mg p.o. b.i.d. 11. Metformin 500 mg p.o. q.h.s. and 1000 mg p.o. q.a.m. 12. Metoprolol tartrate 25 mg p.o. b.i.d. 13. Multivitamin 1 tab p.o. daily. 14. Oxycodone 15 mg p.o. q.4 hours p.r.n. for pain. 15. Simvastatin 40 mg p.o. q.h.s. ALLERGIES: CEFAZOLIN, unknown; CELEXA, insomnia; NAPROXEN, vomiting; NSAIDS, GI upset; PENICILLIN, rash; SULFA, unknown; LUNESTA, insomnia. FAMILY HISTORY: Mother is alive with history of CAD. Father is with history of CAD. 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 Tobacco: Lifetime nonuser. Alcohol: Lifetime nonuser. Illicit: Lifetime nonuser. REVIEW OF SYSTEMS: General: Positive for malaise. Negative for fevers or chills. HEENT: Negative for vision changes or headaches. Difficulty swallowing. Cardiovascular: Negative for chest pain, palpitations, or orthopnea. Respiratory: Negative for shortness of breath, cough, or pleuritic chest pain. GI: Negative for nausea, vomiting, diarrhea, or abdominal pain. : Negative for dysuria or hematuria. Musculoskeletal: Positive for myalgias , arthralgias, and weakness in diffuse joints, but primarily left lower extremity and right upper shoulder. Skin: Positive for healing left lower extremity I and D on anterior rush. Negative for other changes. Neurologic: Negative for focal weakness or numbness. Psychiatric: Negative for depression or anxiety. Endocrine: Denies polyuria or polydipsia. Heme: Negative for easy bruising, bleeding, or lymphadenopathy. Allergies: Negative for frequent infections. PHYSICAL EXAMINATION GENERAL APPEARANCE: Well-appearing woman, obese, in no acute distress, sitting up in hospital stretcher. VITAL SIGNS: At time of physical exam, blood pressure is 147/64, respiratory rate 60, oxygen saturation 98% on room air. HEENT: Pupils are equal and reactive. Extraocular muscles are intact. Sclerae anicteric. Mucous membranes are moist. NECK: Supple with no supraclavicular or cervical lymphadenopathy. RESPIRATORY: She is clear to auscultation bilaterally with no wheezing, crackles or rhonchi. CARDIAC: She is regular rate and rhythm and no murmurs, rubs, or gallops. ABDOMEN: Belly is soft, nontender, nondistended with normoactive bowel sounds. MUSCULOSKELETAL: She moves all 4 limbs spontaneously. EXTREMITIES: Bilateral lower extremities with patchy erythematous, lacy areas of rash on bilateral anterior rush and left lower extremity 4 cm well-healed linear prior incision with some scar tissue, no induration, no warmth, mild erythema consistent with normal healing process. No fluctuance, 1+ nonpitting edema. 2+ pulses in bilateral lower extremities. NEUROLOGIC: Cranial nerves II through XII are intact. No focal deficits. She is A and O x4. DIAGNOSTIC STUDIES/LAB DATA: White blood cell count 8.9, hemoglobin 12.8, hematocrit 38, platelets 353. Sodium 135, potassium 3.3, chloride 93, carbon dioxide 32. BUN 19, creatinine 0.71. Glucose 291. CRP 10.67. No imaging was done. No EKG was done. Labs reviewed by myself. ASSESSMENT AND PLAN: This is a 63-year-old female with a past medical history of chronic pain, dependent on opiates; fkh-pzdvfwg-jgdwcpkom diabetes; anxiety; hyperlipidemia; hypertension; coronary artery disease; morbid obesity; resulting in deconditioning, who is recently admitted from 11/22/18 to 11/27/18 , status post I and D of left rush abscess. She was representing to the hospital this evening with weakness and difficulty caring for herself in the home secondary to problems of pain control and unsteady gait. She will be admitted for observation for symptom management. 1. Weakness and pain. There is no evidence of acute cellulitis or infection. The patient likely deconditioned and was actually meeting criteria for admission to subacute rehab. Her last admission was refused in lieu of going home. My suspicion is that she is deconditioned at baseline with benefit from reevaluation of PT. 2. I see no obvious metabolic deficiencies aside from mild hypokalemia. Exam is unremarkable for new or worsening cellulitis, new or no other localizing symptoms aside from her chronic unchanged diffuse low back pain. 3. Left rush laceration, status post I and D 2 weeks ago. The patient appears to be well healing, has completed antibiotics. We will hold on antibiotics at this time unless clinical exam changes. 4. Heart failure with preserved ejection fraction. The patient does have mild edema, reports pain on p.r.n. torsemide at home. We will continue gentle oral Lasix given bilateral lower extremity dependency and healing wound. We will start 40 mg p.o. daily, otherwise appears largely euvolemic and optimized from heart failure standpoint on beta-kushal, angiotensin receptor kushal, aspirin , statin. 5. Lok-zyhnqin-adwmwewxn diabetes. The patient will be on point of care glucose, sliding scale Lispro as well as continued her home medications. 6. Hyperlipidemia. Continue on statin. 7. Hypothyroidism. Continue home dose thyroid medication. 8. Syncope, status post pacemaker, no indication for the patient to be monitored on tele. She has no concerning symptoms. 9. Coronary artery disease, no stents. The patient is on beta-blockers, statin , and aspirin. 10. Hypertension. Continue the patient's home medications with the exception of irbesartan losartan, hydralazine p.r.n. for systolic blood pressures greater than 165. 11. History of pancreatitis. No current complaints of stomach pain. Continue to monitor. No active issues. 12. DVT prophylaxis. Lovenox. 13. Diet. Carb consistent. 14. Disposition. Stable for admission to [address] [place] [address] for PT/OT consult. TIME SPENT: Forty five minutes was spent on planning of this admission with over half of that spent directly at the bedside with the patient providing direct the patient's care. Plan of care is discussed with the patient who understands admissions, observation and possible usp care depending on her clinical course. We will discuss the case with accepting hospitalists in the morning. [id number]/[facility] #: [id number] KARRI
[2018-12-06] MEDS: oxyCODONE TAB* 5 MG TAB PO PRN ×3 (12:04→23:41)
[2018-12-06] MEDS: Acetaminophen TAB* 325 MG PO PRN (12:56)
[2018-12-06] MEDS: LORazepam TAB(*) 1 MG PO PRN ×2 (12:56→20:24)
[2018-12-06] MEDS: Atorvastatin* 20 MG TAB PO SCH (20:24)
[2018-12-06] MEDS: metFORMIN* 500 MG TAB PO SCH (20:25)
[2018-12-06] MEDS: Zolpidem TAB* 5 MG PO PRN (22:02)
[2018-12-07] MEDS: Levothyroxine TAB* 75 MCG TAB PO SCH (05:03)
[2018-12-07] MEDS: Enoxaparin(*) 40 MG/0.4 ML SYR SUBCUT SCH ×2 (05:03→05:05)
[2018-12-07] MEDS: oxyCODONE TAB* 5 MG TAB PO PRN ×4 (05:42→20:13)
[2018-12-07] MEDS: Insulin LISPRO* 1 UNITS UNIT SUBCUT SCH ×3 (09:13→18:18)
[2018-12-07] MEDS: metFORMIN* 1,000 MG TAB PO SCH (09:14)
[2018-12-07] MEDS: Cholecalciferol TAB* 1000 UNITS PO SCH (09:14)
[2018-12-07] MEDS: Diltiazem CD CAP* 240 MG PO SCH (09:14)
[2018-12-07] MEDS: Potassium Chlor TAB* 20 MEQ TAB.ER PO SCH ×2 (09:14→20:08)
[2018-12-07] MEDS: Prenatal Vitamin TAB PO SCH (09:14)
[2018-12-07] MEDS: Aspirin 81 mg CHEW TAB* 81 MG TAB.CHEW PO SCH (09:14)
[2018-12-07] MEDS: Lactobacillus Acidophilus* 1 TAB PO SCH ×2 (09:15→20:09)
[2018-12-07] MEDS: Metoprolol Tartrate TAB* 25 MG PO SCH ×2 (09:15→20:09)
[2018-12-07] MEDS: Furosemide TAB* 40 MG PO SCH (09:15)
[2018-12-07] MEDS: Gabapentin CAP(*) 100 MG PO SCH ×3 (09:19→20:09)
[2018-12-07] MEDS: LORazepam TAB(*) 1 MG PO PRN ×2 (09:26→20:09)
[2018-12-07] MEDS: Losartan TAB* 25 MG PO SCH (09:26)
--- NOTE | 2018-12-07 11:20 | PN ---
Subjective Date of Service: 12/07/18 Interval History: Patient reports right shoulder pain, which has been an ongoing issue for at least a month. The pain has worsened for the last week and is unchanged today. She has had negative x-rays in outpatient workup. She denies fever/chills, difficulty breathing, chest pain, abd pain, n/v/d. Objective Active Medications: Acetaminophen (Tylenol Tab*) 650 mg PO Q6H PRN PRN Reason: FEVER/PAIN Last Admin: 12/06/18 12:56 Dose: 650 mg Aspirin (Aspirin 81 Mg Chew Tab*) 81 mg PO DAILY [facility] Last Admin: 12/07/18 09:14 Dose: 81 mg Atorvastatin Calcium (Lipitor*) 20 mg PO BEDTIME [facility] Last Admin: 12/06/18 20:24 Dose: 20 mg Cholecalciferol (Vitamin D Tab*) 2,000 units PO DAILY [facility] Last Admin: 12/07/18 09:14 Dose: 2,000 units Dextrose (Dextrose 50% Vial 50 Ml*) 25 ml IV PUSH .FOR FS < 60 - SS PRN PRN Reason: FS < 60 Diltiazem HCl (Cardizem Cd Cap*) 240 mg PO DAILY [facility] Last Admin: 12/07/18 09:14 Dose: 240 mg Enoxaparin Sodium (Lovenox(*)) 40 mg SUBCUT Q24H [facility] Last Admin: 12/07/18 05:05 Dose: Not Given Furosemide (Lasix Tab*) 40 mg PO DAILY [facility] Last Admin: 12/07/18 09:15 Dose: 40 mg Gabapentin (Neurontin Cap(*)) 100 mg PO TID [facility] Last Admin: 12/07/18 09:19 Dose: 100 mg Insulin Human Lispro (Humalog*) 0 units SUBCUT AC [facility]; Protocol Last Admin: 12/07/18 09:13 Dose: 3 units Lactobacillus Rhamnosus (Lactobacillus Acidophilus*) 1 tab PO BID [facility] Last Admin: 12/07/18 09:15 Dose: 1 tab Levothyroxine Sodium (Synthroid Tab*) 75 mcg PO DAILY@0600 [facility] Last Admin: 12/07/18 05:03 Dose: 75 mcg Loperamide HCl (Imodium Cap*) 2 mg PO DAILY PRN PRN Reason: IF > 4X BM PER DAY Lorazepam (Ativan Tab(*)) 1 mg PO BID PRN PRN Reason: ANXIETY Last Admin: 12/07/18 09:26 Dose: 1 mg Losartan Potassium (Cozaar Tab*) 100 mg PO DAILY [facility] Last Admin: 12/07/18 09:26 Dose: 100 mg Melatonin (Melatonin) 3 mg PO BEDTIME PRN PRN Reason: SLEEP Metformin HCl (Glucophage*) 500 mg PO BEDTIME [facility] Last Admin: 12/06/18 20:25 Dose: 500 mg Metformin HCl (Glucophage*) 1,000 mg PO DAILY [facility] Last Admin: 12/07/18 09:14 Dose: 1,000 mg Metoprolol Tartrate (Lopressor Tab*) 25 mg PO BID [facility] Last Admin: 12/07/18 09:15 Dose: 25 mg Multivitamins ( Vitamin Tab*) 1 tab PO DAILY [facility] Last Admin: 12/07/18 09:14 Dose: 1 tab Ondansetron HCl (Zofran Inj*) 4 mg IV Q6H PRN PRN Reason: NAUSEA Oxycodone HCl (Roxycodone Tab*) 15 mg PO Q6H PRN PRN Reason: PAIN 8-10 Last Admin: 12/07/18 05:42 Dose: 15 mg Potassium Chloride (Klor Con Er Tab*) 20 meq PO BID [facility] Last Admin: 12/07/18 09:14 Dose: 20 meq Zolpidem Tartrate (Ambien Tab*) 5 mg PO BEDTIME PRN PRN Reason: INSOMNIA Last Admin: 12/06/18 22:02 Dose: 5 mg Vital Signs - 8 hr 12/07/18 12/07/18 12/07/18 05:42 07:35 09:19 Temperature 98.9 F Pulse Rate 62 Respiratory 20 16 16 Rate Blood Pressure 124/50 (mmHg) O2 Sat by Pulse 94 Oximetry 12/07/18 09:26 Temperature Pulse Rate Respiratory 16 Rate Blood Pressure (mmHg) O2 Sat by Pulse Oximetry Oxygen Devices in Use Now: None Appearance: Obese white female laying in hospital bed appearing in NAD Eyes: No Scleral Icterus, PERRLA Ears/Nose/Mouth/Throat: Mucous Membranes Moist Neck: NL Appearance and Movements; NL JVP Respiratory: Symmetrical Chest Expansion and Respiratory Effort, Clear to Auscultation Cardiovascular: NL Sounds; No Murmurs; No JVD, RRR Abdominal: NL Sounds; No Tenderness; No Distention Extremities: No Edema, No Clubbing, Cyanosis, - - ice pack to right shoulder Skin: No Rash or Ulcers, - - healing wound to left rush, approx 3 cm in length Neurological: Alert and Oriented x 3, NL Muscle Strength and Tone, - - able to move all extremities Result Diagrams: 12/06/18 02:33 12/06/18 02:33 Assess/Plan/Problems-Billing Assessment: 63 yo female with PMHx chronic back pain on opiates, DM, HTN, HLD, CAD, hypothyroidism, HFpEF, syncope with ppm, and anxiety who was recently discharged to home after refusing [facility] on 11/27/18 from this facility where she was hospitalized for a fall and I&D of a wound, now returning due to failure to care for herself at home. - Patient Problems (1) Right shoulder pain Current Visit: Yes Status: Acute Code(s): M25.511 - PAIN IN RIGHT SHOULDER SNOMED Code(s): 22917494 Comment: -patient reports injury to right shoulder approx one month ago -reports negative x-rays in outpatient work up -pain is controlled with her home prn oxycodone for chronic back pain -would benefit from further outpatient workup; cannot have MRI due to PPM (2) Generalized weakness Current Visit: Yes Status: Acute Code(s): R53.1 - WEAKNESS SNOMED Code(s) : 10365247 Comment: -patient is likely deconditioned from recent hospital stay, was discharge 11/27 -no focal deficits -refused rehab at prior discharge and is failing to care for herself at home -PT has assessed patient during this hospitalization and recommends skilled PT, placement pending (3) Back pain Current Visit: No Status: Acute Code(s): M54.9 - DORSALGIA, UNSPECIFIED SNOMED Code(s): 410190703 Comment: -chronic back pain -continue home oxycodone (4) CHF (congestive heart failure) Current Visit: No Status: Acute Code(s): I50.9 - HEART FAILURE, UNSPECIFIED SNOMED Code(s): 81112796 Comment: - HFpEF, confirmed with echo this year - no evidence of acute exacerbation - continue home metoprolol, losartan, lasix (5) Diabetes Current Visit: No Status: Acute Code(s): E11.9 - TYPE 2 DIABETES MELLITUS WITHOUT COMPLICATIONS SNOMED Code(s): 66860060 Comment: - type 2 DM - Continue Lispro SS, metformin (6) Hypertension Current Visit: No Status: Acute Code(s): I10 - ESSENTIAL (PRIMARY) HYPERTENSION SNOMED Code(s): 98004543 Comment: - Cont lopressor, losartan, cardizem - normotensive (7) Hypothyroidism Current Visit: No Status: Acute Code(s): E03.9 - HYPOTHYROIDISM, UNSPECIFIED SNOMED Code(s): 10765093 Comment: - Continue levothyroxine (8) History of insomnia Current Visit: Yes Status: Acute Code(s): Z87.898 - PERSONAL HISTORY OF OTHER SPECIFIED CONDITIONS SNOMED Code(s): 082663747 Comment: -patient takes 10mg ambien at home, would prefer to keep at lower dose of 5mg in hospital due to opiate use -patient reports "feeling hyper" when taking melatonin in past (9) DVT prophylaxis Current Visit: No Status: Acute Code(s): JUS9598 - SNOMED Code(s): 102617615 Comment: -Lovenox (10) Full code status Current Visit: No Status: Acute Code(s): Z78.9 - OTHER SPECIFIED HEALTH STATUS SNOMED Code(s): 795158879 Comment: Status and Disposition: pending placement
[2018-12-07] MEDS: Acetaminophen TAB* 325 MG PO PRN (12:17)
[2018-12-07] MEDS: Atorvastatin* 20 MG TAB PO SCH (20:08)
[2018-12-07] MEDS: Zolpidem TAB* 5 MG PO PRN (20:09)
[2018-12-07] MEDS: metFORMIN* 500 MG TAB PO SCH (20:10)
[2018-12-08] MEDS: oxyCODONE TAB* 5 MG TAB PO PRN ×6 (00:12→21:29)
[2018-12-08] MEDS: Levothyroxine TAB* 75 MCG TAB PO SCH (06:29)
[2018-12-08] MEDS: Enoxaparin(*) 40 MG/0.4 ML SYR SUBCUT SCH (06:29)
[2018-12-08] MEDS: LORazepam TAB(*) 1 MG PO PRN ×2 (06:29→16:56)
[2018-12-08] MEDS: Cholecalciferol TAB* 1000 UNITS PO SCH (08:55)
[2018-12-08] MEDS: Aspirin 81 mg CHEW TAB* 81 MG TAB.CHEW PO SCH (08:55)
[2018-12-08] MEDS: Gabapentin CAP(*) 100 MG PO SCH ×3 (08:55→21:29)
[2018-12-08] MEDS: Metoprolol Tartrate TAB* 25 MG PO SCH ×2 (08:57→21:30)
[2018-12-08] MEDS: Potassium Chlor TAB* 20 MEQ TAB.ER PO SCH ×2 (08:57→21:30)
[2018-12-08] MEDS: Lactobacillus Acidophilus* 1 TAB PO SCH ×2 (08:57→21:29)
[2018-12-08] MEDS: metFORMIN* 1,000 MG TAB PO SCH (08:57)
[2018-12-08] MEDS: Prenatal Vitamin TAB PO SCH (08:57)
[2018-12-08] MEDS: Diltiazem CD CAP* 240 MG PO SCH (08:57)
[2018-12-08] MEDS: Losartan TAB* 25 MG PO SCH (08:57)
[2018-12-08] MEDS: Furosemide TAB* 40 MG PO SCH (08:58)
[2018-12-08] MEDS: Insulin LISPRO* 1 UNITS UNIT SUBCUT SCH ×3 (08:58→17:29)
[2018-12-08 15:13] LABS: BUN/Creatinine Ratio 23.8 (8-20); Calcium 9.7 mg/dL (8.6-10.3); EGFR African American 82.3 (>60); Potassium 3.9 mmol/L (3.5-5.0)
[2018-12-08] MEDS: Polyethylene Glycol 3350* 17 GM PACKET PO PRN (16:56)
[2018-12-08] MEDS: Atorvastatin* 20 MG TAB PO SCH (21:29)
[2018-12-08] MEDS: metFORMIN* 500 MG TAB PO SCH (21:30)
[2018-12-08] MEDS: Zolpidem TAB* 5 MG PO PRN (21:34)
--- NOTE | 2018-12-08 22:17 | PN ---
Hospitalist Progress Note Date of Service: 12/08/18 Did not evaluate patient today as she was switched to residential status and I evaluated her yesterday. Her BMP was unable to be collected yesterday due to unavailability of ultrasound guided blood draw. BMP today demonstrated resolution of her hypokalemia. Her home potassium supplement is continued. [facility] placement still pending.
[2018-12-09] MEDS: oxyCODONE TAB* 5 MG TAB PO PRN ×6 (01:23→21:54)
[2018-12-09] MEDS: Enoxaparin(*) 40 MG/0.4 ML SYR SUBCUT SCH (04:31)
[2018-12-09] MEDS: LORazepam TAB(*) 1 MG PO PRN ×2 (05:26→17:59)
[2018-12-09] MEDS: Levothyroxine TAB* 75 MCG TAB PO SCH (05:27)
[2018-12-09] MEDS: Insulin LISPRO* 1 UNITS UNIT SUBCUT SCH ×3 (09:07→17:59)
[2018-12-09] MEDS: Potassium Chlor TAB* 20 MEQ TAB.ER PO SCH ×2 (09:07→21:54)
[2018-12-09] MEDS: Gabapentin CAP(*) 100 MG PO SCH ×3 (09:07→21:54)
[2018-12-09] MEDS: metFORMIN* 1,000 MG TAB PO SCH (09:08)
[2018-12-09] MEDS: Cholecalciferol TAB* 1000 UNITS PO SCH (09:08)
[2018-12-09] MEDS: Lactobacillus Acidophilus* 1 TAB PO SCH ×2 (09:08→21:54)
[2018-12-09] MEDS: Furosemide TAB* 40 MG PO SCH (09:08)
[2018-12-09] MEDS: Metoprolol Tartrate TAB* 25 MG PO SCH ×2 (09:08→21:54)
[2018-12-09] MEDS: Aspirin 81 mg CHEW TAB* 81 MG TAB.CHEW PO SCH (09:08)
[2018-12-09] MEDS: Losartan TAB* 25 MG PO SCH (09:08)
[2018-12-09] MEDS: Diltiazem CD CAP* 240 MG PO SCH (09:08)
[2018-12-09] MEDS: Polyethylene Glycol 3350* 17 GM PACKET PO PRN (13:36)
[2018-12-09] MEDS: Prenatal Vitamin TAB PO SCH (13:50)
[2018-12-09] MEDS: metFORMIN* 500 MG TAB PO SCH (21:54)
[2018-12-09] MEDS: Atorvastatin* 20 MG TAB PO SCH (21:54)
[2018-12-09] MEDS: Zolpidem TAB* 5 MG PO PRN (22:01)
[2018-12-10] MEDS: oxyCODONE TAB* 5 MG TAB PO PRN ×5 (02:14→20:39)
[2018-12-10] MEDS: LORazepam TAB(*) 1 MG PO PRN ×2 (07:01→16:43)
[2018-12-10] MEDS: Levothyroxine TAB* 75 MCG TAB PO SCH (07:01)
[2018-12-10] MEDS: Enoxaparin(*) 40 MG/0.4 ML SYR SUBCUT SCH (07:08)
[2018-12-10] MEDS: Insulin LISPRO* 1 UNITS UNIT SUBCUT SCH ×3 (10:01→17:29)
[2018-12-10] MEDS: Diltiazem CD CAP* 240 MG PO SCH (10:02)
[2018-12-10] MEDS: Gabapentin CAP(*) 100 MG PO SCH ×3 (10:02→20:42)
[2018-12-10] MEDS: Cholecalciferol TAB* 1000 UNITS PO SCH (10:02)
[2018-12-10] MEDS: Aspirin 81 mg CHEW TAB* 81 MG TAB.CHEW PO SCH (10:02)
[2018-12-10] MEDS: Furosemide TAB* 40 MG PO SCH (10:02)
[2018-12-10] MEDS: Lactobacillus Acidophilus* 1 TAB PO SCH ×2 (10:03→20:38)
[2018-12-10] MEDS: metFORMIN* 1,000 MG TAB PO SCH (10:04)
[2018-12-10] MEDS: Metoprolol Tartrate TAB* 25 MG PO SCH ×2 (10:04→20:38)
[2018-12-10] MEDS: Losartan TAB* 25 MG PO SCH (10:04)
[2018-12-10] MEDS: Potassium Chlor TAB* 20 MEQ TAB.ER PO SCH ×2 (10:04→20:39)
[2018-12-10] MEDS: Prenatal Vitamin TAB PO SCH ×2 (11:57→12:07)
[2018-12-10] MEDS: Polyethylene Glycol 3350* 17 GM PACKET PO PRN (20:38)
[2018-12-10] MEDS: Zolpidem TAB* 5 MG PO PRN (20:38)
[2018-12-10] MEDS: metFORMIN* 500 MG TAB PO SCH (20:38)
[2018-12-10] MEDS: Atorvastatin* 20 MG TAB PO SCH (20:39)
[2018-12-11] MEDS: oxyCODONE TAB* 5 MG TAB PO PRN ×6 (01:12→21:27)
[2018-12-11] MEDS: Enoxaparin(*) 40 MG/0.4 ML SYR SUBCUT SCH (04:18)
[2018-12-11] MEDS: Levothyroxine TAB* 75 MCG TAB PO SCH (04:59)
[2018-12-11] MEDS: LORazepam TAB(*) 1 MG PO PRN ×2 (05:03→17:26)
[2018-12-11] MEDS: Furosemide TAB* 40 MG PO SCH (07:45)
[2018-12-11] MEDS: Lactobacillus Acidophilus* 1 TAB PO SCH ×2 (07:45→21:31)
[2018-12-11] MEDS: Diltiazem CD CAP* 240 MG PO SCH (07:46)
[2018-12-11] MEDS: Potassium Chlor TAB* 20 MEQ TAB.ER PO SCH ×2 (07:46→21:30)
[2018-12-11] MEDS: Metoprolol Tartrate TAB* 25 MG PO SCH ×2 (07:46→21:32)
[2018-12-11] MEDS: metFORMIN* 1,000 MG TAB PO SCH (07:46)
[2018-12-11] MEDS: Losartan TAB* 25 MG PO SCH (07:47)
[2018-12-11] MEDS: Cholecalciferol TAB* 1000 UNITS PO SCH (07:48)
[2018-12-11] MEDS: Prenatal Vitamin TAB PO SCH (07:48)
[2018-12-11] MEDS: Aspirin 81 mg CHEW TAB* 81 MG TAB.CHEW PO SCH (07:48)
[2018-12-11] MEDS: Gabapentin CAP(*) 100 MG PO SCH ×3 (07:48→21:29)
[2018-12-11] MEDS: Insulin LISPRO* 1 UNITS UNIT SUBCUT SCH ×4 (07:49→17:26)
[2018-12-11] MEDS ORDERED: Nitroglycerin TAB 0.4 MG* 0.4 MG TAB SL ONE (11:31)
[2018-12-11] MEDS ORDERED: Aspirin 81 mg CHEW TAB* 81 MG TAB.CHEW PO ONE (11:32)
--- NOTE | 2018-12-11 12:51 | DS ---
CC: Dr. Cavanaugh * DISCHARGE SUMMARY: DATE OF ADMISSION: 12/06/18 DATE OF DISCHARGE: 12/11/18 PRIMARY CARE PROVIDER: Dr. Cavanuagh. ATTENDING PHYSICIAN: Dr. Parks * (dictated by Freya Contreras NP). PRIMARY DIAGNOSES: 1. Right shoulder pain. 2. General weakness. 3. Chronic back pain. 4. Congestive heart failure. 5. Diabetes. 6. Hypertension. 7. Hypothyroid. 8. History of insomnia. 9. Coronary artery disease. 10. Hyperlipidemia. CONSULTATIONS WHILE IN THE HOSPITAL: No consultations. STUDIES WHILE IN THE HOSPITAL: No studies. DISCHARGE HOME MEDICATIONS: Continued Home Medications: 1. Lactobacillus 1 tab p.o. b.i.d. 2. Ativan 1 mg p.o. b.i.d., MDD 2 tabs. 3. Avapro 150 mg p.o. q.a.m. 4. Gabapentin 100 mg p.o. t.i.d. 5. Cardizem 240 mg p.o. daily. 6. Vitamin D3 at 2000 units p.o. daily. 7. Aspirin 81 mg p.o. daily. 8. Oxycodone 15 mg p.o. q.4 hours p.r.n. 9. Metformin 1000 mg p.o. daily. 10. Ambien 10 mg p.o. at bedtime p.r.n. 11. Zocor 40 mg p.o. at bedtime. 12. Multivitamin 1 tab p.o. daily. 13. Metoprolol 25 mg p.o. b.i.d. 14. Metformin 500 mg p.o. at bedtime. 15. Imodium 2 mg p.o. daily p.r.n. 16. Levothyroxine 75 mcg p.o. daily. 17. Zofran 8 mg p.o. q.6 hours p.r.n. 18. Lasix 40 mg p.o. daily. HISTORY OF PRESENT ILLNESS AND HOSPITAL COURSE: Mrs. Barragan is a 63-year-old female with a past medical history significant for chronic back pain, long-term opiate pain medication, [id number] diabetes, hyperlipidemia, hypertension, CAD, hypothyroid, heart failure with preserved ejection fraction, syncope, status post pacemaker, history of gallstone pancreatitis, and anxiety who presented to the emergency department on 12/06/18 with complaints of 2 days of weakness and inability to safely ambulate in her home. Please see history and physical dictated by Lesley Kurtz MD, for complete summary of the events leading up to the hospitalization, but in short the patient presented to the emergency room with the above-mentioned complaints. After she had been recently admitted from 11/22/18 until 11/27/18 due to a laceration on her left rush, I and D, and discharged home on antibiotics. It should be mentioned that when she was discharged on 11/27/18, it was recommended that she go to short- term rehab for rehabilitation due to deconditioning, but she refused. While in the emergency room on 12/06/18, the patient reported that she was unable to bear weight on her left leg, was feeling overall overwhelmed with her state of healthcare and decided to present to the emergency room to discuss possible short-term rehab. Given these complaints and the patient's recent discharge, hospitalists were asked to admit for further evaluation. The patient was admitted to the medical floor for observation and symptom management. While hospitalized, the patient was assessed by physical therapy, who recommended skilled PT at a subacute rehab and the patient agreed; therefore , she was made assisted care until placement could be obtained. Today, placement has been obtained at [facility]. Shortly after being told she was being discharged which she was reluctant patient expressed chest pain. Patient was kept an additional 5 hours due to this report. She had repeat troponins which were negative. She has repeat EKGs which were unremarkable except for nonspecific ST/T wave changes. Vital signs have remained stable. We suspect this is atypical chest pain related to stress of being discharged. After this work up she was told she was medically stable for release and now she is refusing to leave. The patient is stable for discharge to [facility]. Vital Signs: Temp 96.9, HR 67, RR 16, O2 saturation 94% on room air, BP 130/77. REVIEW OF SYSTEMS: The patient reports right shoulder pain, which is chronic x1 month. The patient reports overall weakness/deconditioning. A 14-point review of systems was completed, all of which were negative. PHYSICAL EXAMINATION: General: Mrs. Barragan is sitting in bed. Appears to be in no acute distress. Appears stated age. HEENT: EOMs intact. PERRLA. Oral mucosa is moist without lesion. Posterior pharynx is clear. Neck: Supple. No lymphadenopathy. Cardiac: S1, S2 present. No murmurs, rubs, or gallops. Regular rate and rhythm. Respiratory: Lungs are clear to auscultation. Good aeration. No wheezes, rhonchi, or rubs. Abdomen: Soft, nontender. Bowel sounds normoactive. Extremities: No edema. No clubbing or cyanosis. Pedal pulses 2+ bilaterally. Musculoskeletal: No pain or deformities. Skin: The patient has a healed laceration to the left anterior rush. No signs of infection. Neuro: Neuro exam is grossly intact. No focal deficits or weakness. DIAGNOSTIC STUDIES/LAB DATA: Laboratory Data: CBC, BMP obtained 12/06/18. WBC 8.9, hemoglobin 12.6, hematocrit 38, platelets 353. Sodium 135, potassium 3.4, chloride 94, carbon dioxide 32, BUN 20, creatinine 0.84, glucose 245. Most recent glucose today is 157. DISCHARGE PLAN/FOLLOWUP: 1. Generalized weakness: The patient is likely deconditioned from her recent hospital stay when she was discharged on 11/27/18 and refused rehab. At this time, the patient is meeting needs for rehab facility; therefore, she will be discharged to [facility] [place]. The patient states understanding and agreed for this plan. 2. Right shoulder: The patient reports a right shoulder injury approximately 1 month ago. She reports she had negative x-rays on an outpatient workup. Her pain is currently controlled with her home p.r.n. oxycodone. I would recommend the patient have further outpatient workup. Unfortunately, she could not have an MRI given her pacemaker, but I would recommend an orthopedic consult as an outpatient. 3. Back pain: The patient should continue her home oxycodone. 4. CHF: The patient has heart failure with preserved ejection fraction, which is confirmed with an echocardiogram this year. The patient is not in acute exacerbation. The patient should continue her home medications of metoprolol, sartan, and Lasix. 5. Diabetes: The patient is a type 2 diabetic, [id number]. The patient should continue her home medications in the form of metformin 500 mg p.o. at bedtime and metformin 1000 mg p.o. q.a.m. 6. Hypertension: The patient should continue her home medications of Cardizem , Avapro, metoprolol. 7. Hypothyroid: The patient should continue her levothyroxine. 8. History of insomnia: The patient should continue her 10 mg Ambien as she was taking at home. 9. Chronic back pain: The patient should continue her home regimen as previously prescribed. 10. CAD: The patient should continue her statin, aspirin, metoprolol, sartan, Lasix. 11. Atypical chest pain: See HPI. 12. Followup: The patient should follow up with her primary care in 1 to 3 days. 13. Laboratory followup: I would recommend obtaining a BMP in 1 week from , which would be on 12/15/18, to assess the patient's electrolytes as it appears the patient was on torsemide at home, but had pain with torsemide; therefore, she was switched to Lasix here in the hospital. Therefore, I feel it is prudent to recheck her BMP. 14. Education: The patient was educated on signs and symptoms of new or worsening conditions and when to return to the emergency department. The patient stated understanding. TIME SPENT: Approximately 35 minutes were spent on this discharge, greater than half that time was spent [id number] with the patient discussing discharge plans and instructions. This is a summarized report of a complex medical history and hospital stay. For further details, please see the entire medical record. PLAN: This plan was discussed with my attending, Dr. Parks, who is in agreement with my plan of care. FREYA CONTRERAS NP [id number]/[facility] #: [id number] [facility] HOSPITALJames
[2018-12-11] MEDS: metFORMIN* 500 MG TAB PO SCH (21:26)
[2018-12-11] MEDS: Atorvastatin* 20 MG TAB PO SCH (21:30)
[2018-12-11] MEDS: Zolpidem TAB* 5 MG PO PRN (21:31)
[2018-12-12] MEDS: oxyCODONE TAB* 5 MG TAB PO PRN ×6 (02:10→22:50)
[2018-12-12] MEDS: Enoxaparin(*) 40 MG/0.4 ML SYR SUBCUT SCH (04:48)
[2018-12-12] MEDS: LORazepam TAB(*) 1 MG PO PRN ×2 (06:03→18:49)
[2018-12-12] MEDS: Levothyroxine TAB* 75 MCG TAB PO SCH (06:04)
[2018-12-12] MEDS: Prenatal Vitamin TAB PO SCH (09:15)
[2018-12-12] MEDS: Insulin LISPRO* 1 UNITS UNIT SUBCUT SCH ×3 (09:15→17:18)
[2018-12-12] MEDS: Cholecalciferol TAB* 1000 UNITS PO SCH (09:15)
[2018-12-12] MEDS: Losartan TAB* 25 MG PO SCH (09:16)
[2018-12-12] MEDS: Gabapentin CAP(*) 100 MG PO SCH ×3 (09:16→20:40)
[2018-12-12] MEDS: Furosemide TAB* 40 MG PO SCH (09:16)
[2018-12-12] MEDS: Aspirin 81 mg CHEW TAB* 81 MG TAB.CHEW PO SCH (09:16)
[2018-12-12] MEDS: Potassium Chlor TAB* 20 MEQ TAB.ER PO SCH ×2 (09:16→20:39)
[2018-12-12] MEDS: metFORMIN* 1,000 MG TAB PO SCH (09:16)
[2018-12-12] MEDS: Diltiazem CD CAP* 240 MG PO SCH (09:16)
[2018-12-12] MEDS: Metoprolol Tartrate TAB* 25 MG PO SCH ×2 (09:17→20:41)
[2018-12-12] MEDS: Polyethylene Glycol 3350* 17 GM PACKET PO PRN (10:12)
--- NOTE | 2018-12-12 10:41 | PN ---
Subjective Date of Service: 12/12/18 Interval History: Patient sitting in bed on assessment. Reports she feels well today. Discussed chest pain episode yesterday and she reports episodes like that of yesterday are common for her and they occur approx 2 to 3 times a month. She reports she follows with Dr Hdez (Cardiology) and he is aware. Patient denies chest pain today. She denies sob, palpitations, weakness, fatigues, dizziness, nausea, vomiting. Objective Active Medications: Acetaminophen (Tylenol Tab*) 650 mg PO Q6H PRN PRN Reason: FEVER/PAIN Last Admin: 12/07/18 12:17 Dose: 650 mg Aspirin (Aspirin 81 Mg Chew Tab*) 81 mg PO DAILY [facility] Last Admin: 12/12/18 09:16 Dose: 81 mg Atorvastatin Calcium (Lipitor*) 20 mg PO BEDTIME [facility] Last Admin: 12/11/18 21:30 Dose: 20 mg Cholecalciferol (Vitamin D Tab*) 2,000 units PO DAILY [facility] Last Admin: 12/12/18 09:15 Dose: 2,000 units Dextrose (Dextrose 50% Vial 50 Ml*) 25 ml IV PUSH .FOR FS < 60 - SS PRN PRN Reason: FS < 60 Diltiazem HCl (Cardizem Cd Cap*) 240 mg PO DAILY [facility] Last Admin: 12/12/18 09:16 Dose: 240 mg Enoxaparin Sodium (Lovenox(*)) 40 mg SUBCUT Q24H [facility] Last Admin: 12/12/18 04:48 Dose: Not Given Furosemide (Lasix Tab*) 40 mg PO DAILY [facility] Last Admin: 12/12/18 09:16 Dose: 40 mg Gabapentin (Neurontin Cap(*)) 100 mg PO TID [facility] Last Admin: 12/12/18 09:16 Dose: 100 mg Insulin Human Lispro (Humalog*) 0 units SUBCUT AC [facility]; Protocol Last Admin: 12/12/18 09:15 Dose: 3 units Lactobacillus Rhamnosus (Lactobacillus Acidophilus*) 1 tab PO BID [facility] Last Admin: 12/11/18 21:31 Dose: 1 tab Levothyroxine Sodium (Synthroid Tab*) 75 mcg PO DAILY@0600 [facility] Last Admin: 12/12/18 06:04 Dose: 75 mcg Loperamide HCl (Imodium Cap*) 2 mg PO DAILY PRN PRN Reason: IF > 4X BM PER DAY Lorazepam (Ativan Tab(*)) 1 mg PO BID PRN PRN Reason: ANXIETY Last Admin: 12/12/18 06:03 Dose: 1 mg Losartan Potassium (Cozaar Tab*) 100 mg PO DAILY [facility] Last Admin: 12/12/18 09:16 Dose: 100 mg Melatonin (Melatonin) 3 mg PO BEDTIME PRN PRN Reason: SLEEP Metformin HCl (Glucophage*) 500 mg PO BEDTIME [facility] Last Admin: 12/11/18 21:26 Dose: 500 mg Metformin HCl (Glucophage*) 1,000 mg PO DAILY [facility] Last Admin: 12/12/18 09:16 Dose: 1,000 mg Metoprolol Tartrate (Lopressor Tab*) 25 mg PO BID [facility] Last Admin: 12/12/18 09:17 Dose: 25 mg Multivitamins ( Vitamin Tab*) 1 tab PO DAILY [facility] Last Admin: 12/12/18 09:15 Dose: 1 tab Ondansetron HCl (Zofran Inj*) 4 mg IV Q6H PRN PRN Reason: NAUSEA Oxycodone HCl (Roxycodone Tab*) 15 mg PO Q4H PRN PRN Reason: PAIN 8-10 Last Admin: 12/12/18 10:12 Dose: 15 mg Polyethylene Glycol/Electrolytes (Miralax*) 17 gm PO DAILY PRN PRN Reason: CONSTIPATION Last Admin: 12/12/18 10:12 Dose: 17 gm Potassium Chloride (Klor Con Er Tab*) 20 meq PO BID [facility] Last Admin: 12/12/18 09:16 Dose: 20 meq Zolpidem Tartrate (Ambien Tab*) 5 mg PO BEDTIME PRN PRN Reason: INSOMNIA Last Admin: 12/11/18 21:31 Dose: 5 mg Vital Signs - 8 hr 12/12/18 12/12/18 12/12/18 04:47 06:03 06:04 Respiratory 16 20 20 Rate 12/12/18 12/12/18 12/12/18 09:16 10:12 10:32 Respiratory 18 16 18 Rate Oxygen Devices in Use Now: None Appearance: Comfortable, NAD Eyes: No Scleral Icterus Ears/Nose/Mouth/Throat: Clear Oropharnyx, Mucous Membranes Moist Neck: NL Appearance and Movements; NL JVP Respiratory: Symmetrical Chest Expansion and Respiratory Effort, Clear to Auscultation Cardiovascular: NL Sounds; No Murmurs; No JVD, RRR, No Edema Abdominal: NL Sounds; No Tenderness; No Distention Lymphatic: No Cervical Adenopathy Extremities: No Edema Skin: No Rash or Ulcers Neurological: Alert and Oriented x 3 Nutrition: Taking PO's Result Diagrams: 12/06/18 02:33 12/08/18 14:37 Additional Lab and Data: Laboratory Results - last 24 hr 12/11/18 12/11/18 12/11/18 11:54 12:14 15:18 POC Glucose (mg/dL) 213 H Troponin I 0.03 0.01 12/11/18 12/12/18 17:05 07:56 POC Glucose (mg/dL) 183 H 161 H Troponin I Assess/Plan/Problems-Billing Assessment: 63 yo female with PMHx chronic back pain on opiates, DM, HTN, HLD, CAD, hypothyroidism, HFpEF, syncope with ppm, and anxiety who was recently discharged to home after refusing [facility] on 11/27/18 from this facility where she was hospitalized for a fall and I&D of a wound, now returning due to failure to care for herself at home. - Patient Problems (1) Generalized weakness Comment: - Likely deconditioning - No focal deficits - Plan for discharge to [facility] (2) Chest pain Comment: - Resolved - Trops negative, no EKG changes - Reports episodes like yesterday are common for her and she follows with Dr Hdez and he is aware - Reports pain yesterday was not exertional and had no aggrivating or alleviating factors. - She reports it is common for chest pain for her to come and go without specific causes such as exertion - Cont to monitor - Follow up with Cardiology as outpatient (3) CAD (coronary artery disease) Comment: - Cont Statin, ASA, BB, Sartan, Lasix - Follow up with Dr Hdez (patient's outpatient loan workout officer) as previously recommended by him (4) History of insomnia Comment: - Cont Ambien - Hold for over sedation (5) Right shoulder pain Comment: - Cont home narcotic regime - Would benefit from PT for shoulder in addition to deconditioning - Reports injury to right shoulder approx one month ago - Reports negative x-rays in outpatient work up - Would benefit from further outpatient workup; cannot have MRI due to PPM - Patient plans to call Dr Sanderson for appointment after discharge as she is already her patient (6) Anxiety Comment: - Continue Lorazepam. - Follow up with PCP (7) Back pain Comment: - Chronic back pain - Continue home pain medication regime (8) CHF (congestive heart failure) Comment: - HFpEF, confirmed with echo this year - no evidence of acute exacerbation - continue home metoprolol, losartan, lasix (9) Diabetes Comment: - type 2 DM - Continue Lispro SS, metformin (10) Hypertension Comment: - Cont lopressor, Avapro, cardizem - Normotensive (11) Hypothyroidism Comment: - Continue levothyroxine (12) DVT prophylaxis Comment: -Lovenox Status and Disposition: [facility] refused to be discharge yesterday depsite being medically stable. Attending: Cesar Parks
[2018-12-12] MEDS: Lactobacillus Acidophilus* 1 TAB PO SCH ×2 (13:26→20:41)
[2018-12-12] MEDS: Atorvastatin* 20 MG TAB PO SCH (20:41)
[2018-12-12] MEDS: metFORMIN* 500 MG TAB PO SCH (20:41)
[2018-12-12] MEDS: Zolpidem TAB* 5 MG PO PRN (20:45)
[2018-12-13] MEDS: oxyCODONE TAB* 5 MG TAB PO PRN ×5 (03:04→22:16)
[2018-12-13] MEDS: Enoxaparin(*) 40 MG/0.4 ML SYR SUBCUT SCH (06:13)
[2018-12-13] MEDS: Levothyroxine TAB* 75 MCG TAB PO SCH (06:16)
[2018-12-13] MEDS: LORazepam TAB(*) 1 MG PO PRN ×2 (07:01→17:37)
[2018-12-13] MEDS: Insulin LISPRO* 1 UNITS UNIT SUBCUT SCH ×3 (08:25→17:37)
[2018-12-13] MEDS: Lactobacillus Acidophilus* 1 TAB PO SCH ×2 (08:25→22:10)
[2018-12-13] MEDS: Losartan TAB* 25 MG PO SCH (08:25)
[2018-12-13] MEDS: Potassium Chlor TAB* 20 MEQ TAB.ER PO SCH ×2 (08:25→22:11)
[2018-12-13] MEDS: metFORMIN* 1,000 MG TAB PO SCH (08:26)
[2018-12-13] MEDS: Cholecalciferol TAB* 1000 UNITS PO SCH (08:26)
[2018-12-13] MEDS: Diltiazem CD CAP* 240 MG PO SCH (08:26)
[2018-12-13] MEDS: Furosemide TAB* 40 MG PO SCH (08:26)
[2018-12-13] MEDS: Aspirin 81 mg CHEW TAB* 81 MG TAB.CHEW PO SCH (08:26)
[2018-12-13] MEDS: Metoprolol Tartrate TAB* 25 MG PO SCH ×2 (08:26→22:10)
[2018-12-13] MEDS: Gabapentin CAP(*) 100 MG PO SCH ×3 (08:27→22:09)
[2018-12-13] MEDS: Prenatal Vitamin TAB PO SCH (13:10)
[2018-12-13] MEDS: Atorvastatin* 20 MG TAB PO SCH (22:09)
[2018-12-13] MEDS: metFORMIN* 500 MG TAB PO SCH (22:11)
[2018-12-13] MEDS ORDERED: Zolpidem TAB* 5 MG PO PRN (23:04)
[2018-12-14] MEDS: oxyCODONE TAB* 5 MG TAB PO PRN ×3 (02:24→09:50)
[2018-12-14] MEDS: LORazepam TAB(*) 1 MG PO PRN (06:15)
[2018-12-14] MEDS: Levothyroxine TAB* 75 MCG TAB PO SCH (06:16)
[2018-12-14] MEDS: Enoxaparin(*) 40 MG/0.4 ML SYR SUBCUT SCH (07:13)
[2018-12-14] MEDS: Insulin LISPRO* 1 UNITS UNIT SUBCUT SCH ×2 (08:49→12:10)
[2018-12-14] MEDS: Prenatal Vitamin TAB PO SCH (09:42)
[2018-12-14] MEDS: Losartan TAB* 25 MG PO SCH (09:42)
[2018-12-14] MEDS: Potassium Chlor TAB* 20 MEQ TAB.ER PO SCH (09:42)
[2018-12-14] MEDS: Metoprolol Tartrate TAB* 25 MG PO SCH (09:42)
[2018-12-14] MEDS: Cholecalciferol TAB* 1000 UNITS PO SCH (09:43)
[2018-12-14] MEDS: Gabapentin CAP(*) 100 MG PO SCH ×2 (09:44→13:47)
[2018-12-14] MEDS: Diltiazem CD CAP* 240 MG PO SCH (09:44)
[2018-12-14] MEDS: Lactobacillus Acidophilus* 1 TAB PO SCH (09:44)
[2018-12-14] MEDS: metFORMIN* 1,000 MG TAB PO SCH (09:45)
[2018-12-14] MEDS: Aspirin 81 mg CHEW TAB* 81 MG TAB.CHEW PO SCH (09:45)
[2018-12-14] MEDS: Furosemide TAB* 40 MG PO SCH (09:45)
[2018-12-14 10:22] VITALS: BP 167/74
[2018-12-14] MEDS: Acetaminophen TAB* 325 MG PO PRN (13:47)
[2018-12-14] MEDS ORDERED: oxyCODONE TAB* 5 MG TAB PO ONE (14:23)
--- NOTE | 2018-12-15 02:24 | DS ---
DISCHARGE SUMMARY: ADDENDUM: DATE OF ADMISSION: 12/06/18 DATE OF DISCHARGE: 12/14/18 PRIMARY CARE PROVIDER: Dr. Cavanaugh. ATTENDING PROVIDER: Lesley Mcfarlane MD * (DICTATED BY MODESTO RICHARDSON) PRIMARY DIAGNOSIS: No changes. DISCHARGE HOME MEDICATIONS: No changes. HISTORY OF PRESENT ILLNESS/HOSPITAL COURSE: Please see Freya Rees's discharge summary for full details for events leading up to discharge; but, in short, Ms. Barragan is a 63-year-old female with past medical history of chronic back pain, on long-term opiates, diabetes, who presented to the ER on 12/06/18 with complaints of 2 days of weakness. She was admitted to the hospital, and Physical Therapy recommended subacute rehab. The patient agreed. Placement was obtained at [facility]. After she was told about discharge plans , she expressed chest pain. She was kept for approximately 5 hours for workup, which revealed negative troponins, unremarkable EKG, stable vital signs, and suspected that this is atypical chest pain related to stress of discharge. The patient was then admitted skilled nursing as she was refusing discharge to subacute rehab. The patient remained skilled nursing over the weekend. On Friday, she expressed interest in being discharged home. It was further recommended that she be discharged to subacute rehab for rehabilitation, but she continued to refuse. Physical Therapy evaluated the patient on 12/14/18 prior to discharge and noted that she had improved mobility and was using her front wheel walker more efficiently. It is recommended that she have outpatient PT for further treatment of right shoulder pain and general debility and the patient is agreeable to this. She prefers outpatient PT to subacute rehab. She will be discharged to home. At the time of discharge, the patient denies chest pain, shortness of breath, diaphoresis, headache, vision changes, nausea, or vomiting. She denies abdominal pain, nausea, vomiting, diarrhea, or constipation. She feels that she is able to take care for herself at home. She denies difficulty with ambulation or self-care. REVIEW OF SYSTEMS: A 10-point review of systems was performed and all the pertinent positives and negatives are in the HPI. All other systems are negative. PHYSICAL EXAMINATION: Vital Signs: Temperature 98.5 oral, heart rate 67, respiratory rate 17, oxygen saturation 94% on room air, blood pressure 167/74. General: Ms. Barragan is a well-developed, well-nourished, morbidly obese, 63-year- old white female who is lying on her side in bed. She sits up for conversation. She is cooperative and appropriate. She is eager to leave. She understands the risks and benefits of discharge to home versus subacute rehab and is competent to make decisions. HEENT: PERRL. EOMI. Hearing grossly intact. The patient has a chronic tremor of the head/neck. Oral mucous membranes are moist without lesion. Cardiovascular: Regular rate and rhythm with S1, S2, present without murmurs, rubs, clicks, or gallops. There is no JVD. There is no peripheral edema. Radial and pedal pulses are palpable. Pulmonary: Regular chest expansion without use of accessory muscles. Lungs clear to auscultation bilaterally without rhonchi, wheezes, or rubs. Abdomen: Obese. Bowel sounds noted in all quadrants. There is no tenderness to palpation. Musculoskeletal: No pain or deformities. Full range of motion. The patient uses a front wheel walker to ambulate and is slow, but has a steady gait with use of assisted device. Neuro: She is awake, alert, and oriented x3. She has no focal neurological deficit. She has a steady gait with use of assisted device. Skin: Left anterior wound is pink and moist with no signs of infection. There is no drainage. Dressing is clean, dry, and intact. DISCHARGE PLAN AND FOLLOWUP: Please see H and P dated 12/11/18 by Freya Rees for details. TIME SPENT: Approximately 20 minutes were spent on this discharge, greater than half of that time spent [id number] with the patient discussing discharge plans and instructions. This is a summarized report of a complex medical history and hospital stay. For further details, please see the entire medical record. MODESTO RICHARDSON [id number]/[facility] #: [id number] MTDD
== END 2018-12-14 15:00 | disposition home or self-care (01) | DRG 948 ==
LOC: ED 01:32 → MED 04:50 → UNDOADMOB 04:50 → INTOOBSV 11:00 → OBSVTOIN 11:00
PROVIDERS: ADMIT Internal Medicine; ATTEND Internal Medicine
DX: R53.81 Other malaise (principal); Z68.41 Body mass index [BMI] 40.0-44.9, adult; R53.1 Weakness; M25.511 Pain in right shoulder; M54.9 Dorsalgia, unspecified; I11.0 Hypertensive heart disease with heart failure; I50.9 Heart failure, unspecified; E11.9 Type 2 diabetes mellitus without complications; E03.9 Hypothyroidism, unspecified; I25.10 Atherosclerotic heart disease of native coronary artery without angina pectoris; E87.6 Hypokalemia; E66.9 Obesity, unspecified; E78.5 Hyperlipidemia, unspecified; F41.9 Anxiety disorder, unspecified; G47.00 Insomnia, unspecified; R07.89 Other chest pain; Z96.653 Presence of artificial knee joint, bilateral; Z96.641 Presence of right artificial hip joint; Z95.0 Presence of cardiac pacemaker; Z79.84 Long term (current) use of oral hypoglycemic drugs; Z79.82 Long term (current) use of aspirin; Z79.891 Long term (current) use of opiate analgesic; Z79.899 Other long term (current) drug therapy; Z88.6 Allergy status to analgesic agent; Z88.0 Allergy status to penicillin; Z88.2 Allergy status to sulfonamides; Z88.8 Allergy status to other drugs, medicaments and biological substances; Z82.49 Family history of ischemic heart disease and other diseases of the circulatory system; S81.812D Laceration without foreign body, left lower leg, subsequent encounter; X58.XXXD Exposure to other specified factors, subsequent encounter
CPT/HCPCS: 36415; 80048; 84484; 85025; 86140; 93005; 99284; A9270-GY; G0378; G8978-GP-CK; G8979-GP-CJ; J1650

== ENCOUNTER 2018-12-24 17:48 | Emergency (ER) | payer MEDICARE, MEDICAID ==
[2018-12-24] MEDS ORDERED: NS 0.9% 1000 ML** 1,000 ML IV SCH (18:30)
[2018-12-24 18:31] LABS: ABS Lymphocytes 1.7 10^3/ul (1.0-4.8); ABS Monocytes 0.4 10^3/ul (0-0.8); ABS Neutrophils 4.4 10^3/ul (1.5-7.7); Eosinophil % 0.7 %; Hematocrit 39 % (35-47); Lymphocyte % 25.8 %; Mean Corpuscular HGB Conc 34 g/dL (31-36); Mean Corpuscular Hemoglobin 31 pg (27-31); Mean Corpuscular Volume 92 fL (80-97); Mean Platelet Volume 8.1 fL (7.4-10.4); Nucleated Red Blood Cells % 0.1; Platelet Count 314 10^3/uL (150-450); Red Cell Distribution Width 16 % (10-15); White Blood Count 6.7 10^3/uL (3.5-10.8)
[2018-12-24 18:47] LABS: INR 1.06 (0.82-1.09)
[2018-12-24] MEDS: Morphine 4 MG/ML VIAL (1 ml) 4 MG/ML VIAL IV ONE ×2 (18:51→19:34)
[2018-12-24] MEDS: Ondansetron INJ* 2 MG/ML VIAL IV ONE ×2 (18:51→19:33)
[2018-12-24 18:54] LABS: Troponin I 0.01 ng/mL (<0.04)
[2018-12-24 19:01] LABS: Albumin 4.3 g/dL (3.2-5.2); Albumin/Globulin Ratio 1.1 (1-3); Calcium 9.7 mg/dL (8.6-10.3); EGFR African American 101.6 (>60); Globulin 3.8 g/dL (2-4); Magnesium 1.6 mg/dL (1.9-2.7); Potassium 3.6 mmol/L (3.5-5.0); Total Bilirubin 0.6 mg/dL (0.2-1.0); Total Protein 8.1 g/dL (6.4-8.9)
--- NOTE | 2018-12-24 19:30 | ED ---
HPI Chest Pain - HPI Summary HPI Summary: Patient complains of sudden onset left side chest pain radiating to left side neck while walking 4 PM today. Pain described as intermittent, pressure, lasts a minute at a time, at worst 7/10, currently 7/10. Patient states she had episode of syncope with chest pain with subsequent fall. Complains of right hip pain, right low back pain, right shoulder pain status post fall. History of chronic right hip and low back pain. Denies head injury, LOC, ALAN, vision change, AMS, neck pain, fever, cough, sore throat, SOB, N/V/D, abdominal pain, change in urine, change in BM. Medical history is CAD, SVT, CHF, DM, HTN, pacemaker, angina area nonsmoker. - History of Current Complaint Chief Complaint: EDChestPainROMI Time Seen by Provider: 12/24/18 18:07 Hx Obtained From: Patient Onset/Duration: Started Hours Ago Timing: Intermittent, Lasting Seconds Initial Severity: Moderate Current Severity: Moderate Pain Intensity: 7 Pain Scale Used: 0-10 Numeric Chest Pain Location: Left Anterior Chest Pain Radiates To:: Neck Character: Pressure/Squeezing Aggravating Factor(s): Exertion Alleviating Factor(s): Nothing Associated Signs and Symptoms: Positive: Chest Pain, Syncope - Additional Pertinent History Primary Care Physician: [id number] - Allergy/Home Medications Allergies/Adverse Reactions: Allergies Allergy/AdvReac Type Severity Reaction Status Date / Time cefazolin [From Ancef] Allergy Unknown Verified 11/21/18 19:39 Reaction Details citalopram [From Celexa] Allergy Insomnia Verified 11/21/18 19:39 naproxen Allergy Vomiting Verified 11/21/18 19:39 NSAIDS (Non-Steroidal Allergy GI Upset Verified 11/21/18 19:39 Anti-Inflamma Penicillins Allergy Rash Verified 11/21/18 19:39 Sulfa (Sulfonamide Allergy Unknown Verified 11/21/18 19:39 Antibiotics) Reaction Details zaleplon [From Sonata] Allergy Insomnia Verified 11/21/18 19:39 PMH/Surg Hx/FS Hx/Imm Hx Endocrine/Hematology History: Reports: Hx Blood Transfusions, Hx Diabetes, Hx Thyroid Disease Denies: Hx Anticoagulant Therapy, Hx Blood Disorders, Hx Bone Marrow Disease , Hx Systemic Lupus Erythematosus, Hx Sickle Cell Disease, Hx Anemia, Hx Unexplained Bleeding, Other Endocrine/Hematological Disorders Cardiovascular History: Reports: Hx Angina, Hx Auto Implanted Cardiovert Defib, Hx Cardiomegaly - SINCE IN HER TEENS, 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, Hx Congestive Heart Failure, Hx Coronary Artery Disease, Hx Deep Vein Thrombosis, Hx Embolism, Hx Hypertension, Hx Pacemaker/ICD, Other Cardiovascular Problems/Disorders - pericarditis Denies: Hx Aneurysm, Hx Angioplasty, Hx Cardiac Arrest, Hx Hypercholesterolemia, Hx Hypotension, Hx Myocardial Infarction, Hx Peripheral Vascular Disease, Hx Rheumatic Fever, Hx Syncope, Hx Valvular Heart Disease Respiratory History: Reports: Hx Chronic Bronchitis, Hx Pneumonia, Hx Pulmonary Edema, Other Respiratory Problems/Disorders - sob associated - inspiratory pain left ribs, abdominal distention per pt Denies: Hx Asthma, Hx Bronchopulmonary Dysplasia, Hx Chronic Obstructive Pulmonary Disease (COPD), Hx Cystic Fibrosis, Hx Lung Cancer, Hx Pleural Effusion, Hx Pulmonary Embolism, Hx Seasonal Allergies, Hx Sleep Apnea GI History: Reports: Hx Gastroesophageal Reflux Disease, Hx Gastrointestinal Bleed, Hx Hiatal Hernia, Hx Irritable Bowel, Other GI Disorders - ABDOMEN DISTENDED, IBS Denies: Hx Cirrhosis, Hx Crohn's Disease, Hx Diverticulosis, Hx Gall Bladder Disease, Hx Jaundice, Hx Obstructive Bowel, Hx Ileostomy, Hx Pyloric Stenosis, Hx Ulcer History: Denies: Hx Acute Renal Failure, Hx Benign Prostatic Hyperplasia, Hx Chronic Renal Failure, Hx Dialysis, Hx Kidney Infection, Hx Kidney Stones, Hx Renal Disease, Other Problems/Disorders Musculoskeletal History: Reports: Hx Back Problems - back surgery x 3, Hx Orthopedic Injury - knee, hip surgery hx, Other Musculoskeletal History - knee, hip surgery hx Denies: Hx Arthritis, Hx Bursitis, Hx Congenital Bone Abnormalities, Hx Fibromyalgia, Hx Gout, Hx Osteoporosis, Hx Scoliosis, Hx Tendonitis Sensory History: Reports: Hx Contacts or Glasses Denies: Hx Cataracts, Hx Eye Injury, Hx Eye Prosthesis, Hx Glaucoma, Hx Legally Blind, Hx Macular Degeneration, Hx Vision Problem, Hx Deafness, Hx Hearing Aid, Hx Hearing Problem, Other Sensory Impairments Opthamlomology History: Reports: Hx Contacts or Glasses Denies: Hx Cataracts, Hx Eye Injury, Hx Eye Prosthesis, Hx Glaucoma, Hx Legally Blind, Hx Macular Degeneration, Hx Vision Problem, Other Sensory Impairments Neurological History: Denies: Hx Dementia, Hx Developmental Delay, Hx Headaches, Hx Migraine, Hx Nerve Disease, Hx Seizures, Hx Spinal Cord Injury, Hx Transient Ischemic Attacks (TIA), Other Neuro Impairments/Disorders - LOC WITH FALLL Psychiatric History: Reports: Hx Anxiety Denies: Hx Attention Deficit Hyperactivity Disorder, Hx Autism, Hx Eating Disorder, Hx Oppositional Orange Disorder, Hx Depression, Hx Panic Disorder, Hx Post Traumatic Stress Disorder, Hx Inpatient Treatment, Hx Community Mental Health Tx, Hx Schizophrenia, Hx Bipolar Disorder, Hx Suicide Attempt, Hx of Violent Episodes Against Others, Hx Substance Abuse, Other Psychiatric Issues/ Disorders - Cancer History Cancer Type, Location and Year: skin cancer on right leg, removed Hx Hematologic Symptoms: No Hx Chemotherapy: No Hx Radiation Therapy: No Hx Palliative Cancer Treatment: No - Surgical History Surgery Procedure, Year, and Place: left shoulder surgery Jul 08 2013 csections x 3. partial hysterectomy. 3 back surgeries, hardwear in place. right hip REPLACEMENT. LEFT KNEE RECONSTRUCTION. PACEMAKER PLACED-ISAURO- 2011. 3 C-SECTIONS. RIGHT SHOULDER ROTATOR CUFF REPAIR - 15 YEARS AGO. UMBILICAL HERNIA REPAIR Hx Anesthesia Reactions: Yes - PROPOFOL REACTION- THRASHING AND SCREAMING - Immunization History Date of Tetanus Vaccine: utd Date of Influenza Vaccine: utd Infectious Disease History: No Infectious Disease History: Reports: Hx Clostridium Difficile, Hx of Known/ Suspected MRSA Denies: Hx Hepatitis, Hx Human Immunodeficiency Virus (HIV), Hx Shingles, Hx Tuberculosis, Hx Known/Suspected VRE, Hx Known/Suspected VRSA, Traveled Outside the in Last 30 Days - Family History Known Family History: Positive: Cardiac Disease - CAD, Diabetes, Other - Breast CA - Social History Alcohol Use: None Hx Substance Use: No Substance Use Type: Reports: None Hx Tobacco Use: No Smoking Status (MU): Never Smoked Tobacco Have You Smoked in the Last Year: No Review of Systems Constitutional: Negative Eyes: Negative ENT: Negative Positive: Chest Pain Respiratory: Negative Gastrointestinal: Negative Genitourinary: Negative Musculoskeletal: Other Skin: Negative Positive: Syncope Psychological: Normal All Other Systems Reviewed And Are Negative: Yes Physical Exam - Summary Physical Exam Summary: Neuro exam normal. No apparent distress. Chest pain mildly reproducible left side. Lung sounds clear to auscultation bilaterally. No ecchymosis, erythema, deformity, swelling noted to right shoulder, right hip, back. Full range of motion of jaw and neck. No trauma noted to mouth, face, head. No pain with palpation of back, chest wall, abdomen. Patient moving bilateral upper extremities and left lower extremity freely without any indication of pain. Bilateral lower extremities of equal length. Triage Information Reviewed: Yes Vital Signs On Initial Exam: Initial Vitals Temp Pulse Resp BP Pulse Ox 97.3 F 73 18 143/123 92 12/24/18 17:57 12/24/18 17:57 12/24/18 17:57 12/24/18 17:57 12/24/18 17:57 Vital Signs Reviewed: Yes Appearance: Positive: Well-Appearing Skin: Positive: Warm Head/Face: Positive: Normal Head/Face Inspection Eyes: Positive: Normal ENT: Positive: Normal ENT inspection Dental: Negative: Dental Fracture @, Bleeding Neck: Positive: Supple Respiratory/Lung Sounds: Positive: Clear to Auscultation Cardiovascular: Positive: Normal Abdomen Description: Positive: Nontender Musculoskeletal: Positive: Normal Neurological: Positive: Normal Psychiatric: Positive: Normal AVPU Assessment: Alert - Elle Coma Scale Best Eye Response: 4 - Spontaneous Best Motor Response: 6 - Obeys Commands Best Verbal Response: 5 - Oriented Coma Scale Total: 15 Diagnostics - Vital Signs Vital Signs Temp Pulse Resp BP Pulse Ox 12/24/18 17:57 97.3 F 73 18 143/123 92 - Laboratory Lab Results: Lab Results 12/24/18 12/24/18 12/24/18 Range/Units 18:21 18:21 18:21 WBC 6.7 (3.5-10.8) 10^3/uL RBC 4.20 (3.70-4.87) 10^6 /uL Hgb 13.0 (12.0-16.0) g/dL Hct 39 (35-47) % MCV 92 (80-97) fL MCH 31 (27-31) pg MCHC 34 (31-36) g/dL RDW 16 H (10-15) % Plt Count 314 (150-450) 10^3/uL MPV 8.1 (7.4-10.4) fL Neut % (Auto) 66.7 % Lymph % (Auto) 25.8 % [place] % (Auto) 6.2 % Eos % (Auto) 0.7 % Baso % (Auto) 0.6 % Absolute Neuts (auto) 4.4 (1.5-7.7) 10^3/ul Absolute Lymphs (auto) 1.7 (1.0-4.8) 10^3/ul Absolute Monos (auto) 0.4 (0-0.8) 10^3/ul Absolute Eos (auto) 0.0 (0-0.6) 10^3/ul Absolute Basos (auto) 0.0 (0-0.2) 10^3/ul Absolute Nucleated RBC 0.0 10^3/ul Nucleated RBC % 0.1 INR (Anticoag Therapy) 1.06 (0.82-1.09) Sodium 138 (135-145) mmol/L Potassium 3.6 (3.5-5.0) mmol/L Chloride 96 L (101-111) mmol/L Carbon Dioxide 30 (22-32) mmol/L Anion Gap 12 H (2-11) mmol/L BUN 14 (6-24) mg/dL Creatinine 0.70 (0.51-0.95) mg/dL Est GFR ( Amer) 101.6 (>60) Est GFR (Non-Af Amer) 84.0 (>60) BUN/Creatinine Ratio 20.0 (8-20) Glucose 207 H (70-100) mg/dL Calcium 9.7 (8.6-10.3) mg/dL Magnesium 1.6 L (1.9-2.7) mg/dL Total Bilirubin 0.60 (0.2-1.0) mg/dL AST 35 (13-39) U/L ALT 37 (7-52) U/L Alkaline Phosphatase 124 H (34-104) U/L Troponin I 0.01 (<0.04) ng/mL Total Protein 8.1 (6.4-8.9) g/dL Albumin 4.3 (3.2-5.2) g/dL Globulin 3.8 (2-4) g/dL Albumin/Globulin Ratio 1.1 (1-3) Result Diagrams: 12/24/18 18:21 12/24/18 18:21 Lab Statement: Any lab studies that have been ordered have been reviewed, and results considered in the medical decision making process. Chest Pain Course/Dx - Course Course Of Treatment: Patient complains of sudden onset left side chest pain radiating to left side neck while walking 4 PM today. Pain described as intermittent, pressure, lasts a minute at a time, at worst 7/10, currently 7/ 10. Patient states she had episode of syncope with chest pain with subsequent fall. Complains of right hip pain, right low back pain, right shoulder pain status post fall. History of chronic right hip and low back pain. Denies head injury, LOC, ALAN, vision change, AMS, neck pain, fever, cough, sore throat, SOB, N/V/D, abdominal pain, change in urine, change in BM. Medical history is CAD, SVT, CHF, DM, HTN, pacemaker, angina. nonsmoker. Vital signs within normal limits. Labs unremarkable. Serum troponins negative. EKG sinus rhythm with no change from prior. Chest x-ray unremarkable. Patient has history of recurrent visits to the ED. Discussed patient with hospitalist Dr. Robertson who recommends discharge home. Heart score 4 due to risk factors. Negative serial troponins. EKG sinus rhythm, consistent with prior. History of stress test in August 2018 which was negative for ischemia. - Diagnoses Provider Diagnoses: Atypical chest pain, Fall, Syncope Discharge - Sign-Out/Discharge Documenting (check all that apply): Patient Departure Patient Received Moderate/Deep Sedation with Procedure: No - Discharge Plan Condition: Stable Disposition: HOME Patient Education Materials: Chest Pain (ED), Fall Prevention for Older Adults (ED) Referrals: Olga Cavanaugh MD [Primary Care Provider] - Additional Instructions: Follow-up with primary care. Return to the ED for any new or worsening symptoms. - Billing Disposition and Condition Condition: STABLE Disposition: Home
[2018-12-24] MEDS ORDERED: Magnesium Sulfate 2 GM IV* 2 GM/50 ML BAG IVPB ONE (20:55)
[2018-12-24] MEDS ORDERED: oxyCODONE TAB* 5 MG TAB PO ONE (21:15)
[2018-12-24 22:52] VITALS: BP 149/65
--- OUTSIDE RECORDS SUMMARY | 2018-12-25 01:21 | XMS REPORT | Continuity of Care Document ---
:1955 External Reference #:[id number] Author Name Beena Springecca Care Team Providers Name Role Phone Olga Cavanaugh MD Primary Care Physician Unavailable Payers Date Identification Numbers Payment Provider Subscriber Policy Number: [id number] [employer] Miriam Barragan PayID: [id number] [address] [place] [address] Policy Number: [id number] Medicaid Miriam Barragan Group Name: 1 1 [address] PayID: [id number] [place] [address] Problems Active Problems Provider Date Essential hypertension Abelino Hdez DO [facility] Onset: 03/14/2016 Chest pain Bebeto Barroso II, M.D. Onset: 12/14/2017 Hyperlipidemia Bebeto Barroso II, M.D. Onset: 12/14/2017 Type 2 diabetes mellitus Bebeto Barroso II, M.D. Onset: 12/14/2017 Heart failure, unspecified Deisy Summers M.D. Onset: 12/15/2017 Hypothyroidism Deisy Summers M.D. Onset: 12/16/2017 Arthralgia of the pelvic region and Noemy Robertson D.O. Onset: 12/17/2017 thigh Body mass index 40+ - severely obese Noemy Robertson D.O. Onset: 12/17/2017 Low back pain Kris Butler M.D.,FACP Onset: 02/28/2018 Fall Kris Butler M.D.,FACP Onset: 02/28/2018 Morbid obesity Dusty Brooke M.D. Onset: 03/02/2018 Cardiac pacemaker in situ Dusty Brooke M.D. Onset: 03/02/2018 Pain, unspecified Dutsy Brooke M.D. Onset: 03/02/2018 Family History Date Family Member(s) Observation Comments General heart disease General diabetes General Kidney Disease Father due to Emphysema () Father due to NM () - x2 age 50 yr,age 63 yrs Social History Type Date Description Comments Sex Unknown Lives With Alone Occupation Retired ETOH Use Denies alcohol use Tobacco Use Start: Unknown Patient has never smoked Recreational Drug Use Denies Drug Use Smoking Status Reviewed: 01/05/18 Patient has never smoked Exercise Type/Frequency Does not exercise Allergies, Adverse Reactions, Alerts Active Allergies Reaction Severity Comments Date PCN rash , rapid HR 06/23/2006 Anaprox 06/22/2013 Ancef 06/22/2013 Lopressor 06/22/2013 Morphine 06/22/2013 Cipro 03/14/2016 Sulfa Antibiotics 03/14/2016 NSAIDs OTC 03/14/2016 Medications Active Medications SIG Qnty Indications Ordering Date Provider Lasix 1 by mouth in the Unknown 03/12/2016 40mg Tablets morning Oxycodone HCL 1-2 tabs by mouth 60tabs [place] Cart[place], 10/27/2014 10mg Tablets every 6 hours as M.D. needed pain MS Contin 1 by mouth twice Unknown 30mg Tablets ER a day Montelukast Sodium Olga Cavanaugh 10mg MD Macrina Tablets Azelastine HCL (Nasal) Olga Cavanaugh 0.1% MD Macrina Solution Cyclobenzaprine HCL take 2 tablets by Unknown 5mg mouth three times Tablets a day Atorvastatin Calcium take 1 tablet by Unknown 20mg mouth at bedtime Tablets Zofran 1 tab by mouth Unknown 4mg Tablets every 6 hours as needed nausea Miralax 17 gm every day Unknown [id number] Powder mixed w/ 8 oz water/juice as needed Benadryl Extra Strength apply to affected Unknown areas 3-4 times 2-0.1% Cream daily as needed. Senna S 2 tablets by Unknown 8.6-50mg Tablets mouth by mouth twice a day Irbesartan 1 by mouth twice Unknown 150mg Tablets daily Vitamin D 2 tabs by mouth Unknown (Cholecalciferol) every day to 1000Unit equal 2000 units Capsules Pantoprazole Sodium 1 by mouth every Unknown 40mg day Tablets DR Metformin HCL 1 by mouth in the Unknown 500mg Tablets PM Metformin HCL 1 by mouth once a Unknown 1000mg day in Am Tablets Daily Multiple Vitamins 1 daily Unknown Tablets Lorazepam 1 mg by mouth Unknown Tablet before meals and at bed time for anxiety Oxycodone HCL 15mg PO every 4 Unknown Tablet hours as needed for pain Ativan as prescribed Unknown 0.5mg Tablets Simvastatin 1 by mouth every Unknown 40mg Tablets night at bedtime Levothyroxine Sodium 1 by mouth every Unknown 75mcg day Tablets Ambien 1 by mouth every Unknown 10mg Tablets night at bedtime as needed sleep insomnia History Medications Percocet One tab by mouth 60tabs Unknown 02/19/2014 - 5-325mg Tablets up to 4x daily as 02/23/2014 needed Oxycodone HCL 1 by mouth every 120tabs Unknown 02/18/2014 - 10mg 6 hours as needed 02/23/2014 Tablets pain Percocet 1-2 by mouth 60tabs Suresh Cantu M.D. 09/10/2013 - 5-325mg Tablets every 4 to 6 09/08/2013 hours as needed pain [place] 1-2 tab po q4h 60tabs Suresh Cantu M.D. 06/22/2013 - 5-325mg Tablets prn pain 08/30/2013 [place] 1-2 po q4h prn 40tabs [place], 08/12/2011 - 5-325mg Tablets pain Jaspal.DEamon 06/22/2013 Levothyroxine 1 PO qd Gabrieltaybvineet S. 06/23/2006 - 100mcg Rodrick Harkins 09/08/2014 Tablets Aspirin 1 PO qd Qutaybeh S. 06/23/2006 - 81mg Chewtafloyd Harkins M.D. 06/22/2013 Ambien One QHS prn Sleep 30tabs Qutaybeh S. 06/23/2006 - 10mg Tablets Rodrick Harkins 10/07/2013 Ibuprofen 1 PO tid prn Anthony S. 06/23/2006 - 800mg Tablets Rodrick Harkins 06/22/2013 Dilaudid 4-6 qhrs prn Anthony S. 06/23/2006 - 2mg Tablets Rodrick Harkins 06/22/2013 Pravastatin Sodium Unknown - 05/26/2014 Avapro as directed Unknown - 40mg 03/04/2016 Aspirin Low Dose 1 by mouth every Unknown - 81mg day 03/14/2016 Chewtabs Vital Signs Date Vital Result Comment 01/05/2018 [...] Result H/L Range Note Laboratory test 10/14/2013 [facility] C Reactive 14.56 mg/L High < 5.[address] [place] [address] [phone] CBC Auto Diff 10/14/2013 [facility] White Blood 7.2 10^3/uL N 4.8-10.[address] [place] [address] [phone] Red Blood Count 3.98 10^6/uL Low 4.0-5.4 [...] Cells % 0.1 N Laboratory test 10/14/2013 [facility] Erythrocyte Sed 60 mm/Hr High 0-[address] [place] [address] [phone] 1 Acute inflammation: >10.00 Procedures Date Code Description Status 11/23/2018 85175 I&D Abscess Simple Completed 09/03/2018 83246 EKG, Interpretation Only Completed 08/31/2018 32925 Treadmill Interp/Report Only Completed 08/31/2018 97363 Stress Test Supervsn W/Out I/R Completed 08/31/2018 23730 EKG, Interpretation Only Completed 08/30/2018 21761 ECHO Transthorasic Realtime 2D W Doppler & Color Flow Hosp Completed 08/29/2018 67136 EKG, Interpretation Only Completed 05/20/2018 48758 Treadmill Interp/Report Only Completed 05/20/2018 04435 Stress Test Supervsn W/Out I/R Completed 03/02/2018 42716 EKG, Interpretation Only Completed 12/15/2017 45693 Stress Test Supervsn W/Out I/R Completed 12/15/2017 52988 Treadmill Interp/Report Only Completed 12/15/2017 65774 ECHO Transthorasic Realtime 2D W Doppler & Color Flow Hosp Completed 04/24/2017 90988 ECHO Transthorasic Realtime 2D W Doppler & Color Flow Hosp Completed 04/24/2017 33546 Interrogation Device Eval In Person W/DR Completed Analysis,Single,Dual,Mul 04/24/2017 00815 EKG, Interpretation Only Completed 04/23/2017 51867 Interrogation Device Eval In Person W/DR Completed Analysis,Single,Dual,Mul 02/18/2017 61511 EKG, Interpretation Only Completed 02/12/2017 29770 ECHO Transthorasic Realtime 2D W Doppler & Color Flow Hosp Completed 10/03/2016 60729 Treadmill Interp/Report Only Completed 10/03/2016 42058 Stress Test Supervsn W/Out I/R Completed 03/14/2016 31723 EKG Tracing & Interpretation Completed 07/07/2015 27641 ECHO Transthorasic Realtime 2D W Doppler & Color Flow Hosp Completed 09/30/2013 84458 Stress Test Supervsn W/Out I/R Completed 09/30/2013 89078 Treadmill Interp/Report Only Completed 07/07/2013 94712 Arthroscopy Shoulder,W/Rotator Cuff Repair Completed 07/07/2013 22094 Arthroscopy Shoulder,W/Rotator Cuff Repair Completed 03/12/2012 34177 EEG Recording Awake & Drowsy Completed 06/27/2006 49022 Stress ECHO Interpretation/Report Hospital Completed 06/27/2006 18800 Stress ECHO Interpretation/Report Hospital Completed 06/27/2006 68812 Treadmill Interp/Report Only Completed 06/27/2006 81888 Stress Test Supervsn W/Out I/R Completed 06/23/2006 81344 EKG Tracing & Interpretation Completed 06/23/2006 97697 Echocardiogram Completed 06/23/2006 70957 Echocardiogram Completed 06/23/2006 36740 Pulse Doppler & Continuous Wave Completed 06/23/2006 62125 Color Doppler Completed 06/23/2006 90311 Color Doppler Completed 07/11/2005 67159 Color Doppler Completed 07/11/2005 84491 Pulse Doppler & Continuous Wave Completed 07/11/2005 36267 Echocardiogram Completed 08/08/2004 82887 Selective Coronary Angiography Completed 08/08/2004 01013 S/I/R Inj Proc Vent &/Or Atrial Completed 08/08/2004 30619 Coronary Angiography Completed 08/08/2004 18852 Inj Proc LFT Vent/LFT Atrl Angio Completed 08/08/2004 76557 Left Heart Catheterization Completed Encounters Type Date Location Provider Dx Diagnosis Office Visit 09/04/2018 [facility] Mallorie Kyra, PAWN SHOP KEEPER M54.9 Dorsalgia, 10:54a Assoc,pc unspecified Hospitalists G89.29 Other chronic pain Office Visit 09/03/2018 10:53a [facility] Mallorie Kyra, M54.9 Dorsalgia, Assoc,pc PAWN SH[employer] KEEPER unspecified Hospitalists G89.29 Other chronic pain I50.9 Heart failure, unspecified E11.9 Type 2 diabetes mellitus without complications E78.00 Pure hypercholesterolemia, unspecified E03.9 Hypothyroidism, unspecified Office Visit 09/02/2018 10:53a [facility] Mallorie Kyra, M54.9 Dorsalgia, Assoc,pc PAWN SH[employer] KEEPER unspecified Hospitalists G89.29 Other chronic pain I50.9 Heart failure, unspecified E11.9 Type 2 diabetes mellitus without complications E78.00 Pure hypercholesterolemia, unspecified E03.9 Hypothyroidism, unspecified Office Visit 09/01/2018 2:21p Orthopedic Angela Schulz, M25.551 Pain in right Services Of [facility] [place] hip Z96.641 Presence of right artificial hip joint Office Visit 09/01/2018 10:52a [facility] Vanessa M54.9 Dorsalgia, Assoc,pc Kalyan Borden, unspecified Hospitalists PAWN SHOP KEEPER G89.29 Other chronic pain R07.9 Chest pain, unspecified I50.9 Heart failure, unspecified E11.9 Type 2 diabetes mellitus without complications E78.5 Hyperlipidemia, unspecified E03.9 Hypothyroidism, unspecified Z95.0 Presence of cardiac pacemaker I49.5 Sick sinus syndrome Office Visit 08/31/2018 [facility] Bruce Staples R07.9 Chest pain, 4:04p Of Mere Alex M.D. unspecified Office Visit 08/31/2018 [facility] Vassilios M54.16 Radiculopathy, 7:00a Services Of Mere Camarena MD lumbar region Office Visit 08/31/2018 [facility] Jassi Couch, M54.9 Dorsalgia, 10:52a Assoc,pc PA unspecified Hospitalists G89.29 Other chronic pain R07.9 Chest pain, unspecified I50.30 Unspecified diastolic (congestive) heart failure E11.9 Type 2 diabetes mellitus without complications E78.00 Pure hypercholesterolemia, unspecified E03.9 Hypothyroidism, unspecified Z95.0 Presence of cardiac pacemaker Office Visit 08/30/2018 10:52a [facility] Jassi G89.29 Other chronic Assoc,MODESTO Stevens pain Hospitalists R07.9 Chest pain, unspecified I50.30 Unspecified diastolic (congestive) heart failure E11.9 Type 2 diabetes mellitus without complications E78.00 Pure hypercholesterolemia, unspecified E03.9 Hypothyroidism, unspecified Z95.0 Presence of cardiac pacemaker R19.7 Diarrhea, unspecified Office 08/30/2018 [facility] Vassilios M54.16 Radiculopathy, Visit 7:00a Services Of Mere Camarena MD lumbar region Office 08/29/2018 Neurosurgery Vassilios M54.16 Radiculopathy, Visit 7:00a Services Of Mere Camarena MD lumbar region Z98.1 Arthrodesis status Office Visit 08/29/2018 10:51a [facility] Juniorrhonda Landryd, R07.9 Chest pain, Assoc,pc unspecified Hospitalists M54.9 Dorsalgia, unspecified G89.29 Other chronic pain I25.10 Athscl heart disease of [place] coronary artery w/o ang pctrs I50.30 Unspecified diastolic (congestive) heart failure E03.9 Hypothyroidism, unspecified E66.01 Morbid (severe) obesity due to excess calories Office Visit 06/18/2018 [facility] Kai Frederic M54.5 Low back pain 11:33a Assoc,jasmin Newberry MD Hospitalists Office Visit 06/17/2018 [facility] Kainuria De La Garza M54.9 Dorsalgia, 11:32a Assoc,jasmin Newberry MD unspecified Hospitalists F41.9 Anxiety disorder, unspecified G89.29 Other chronic pain Office Visit 06/14/2018 11:32a [facility] Jie Harry M54.5 Low back Assoc,pc Hospitalists N.P. pain F41.9 Anxiety disorder, unspecified G89.29 Other chronic pain Office Visit 06/12/2018 11:31a [facility] Rossyxiomy [place], M54.5 Low back Assoc,pc Hospitalists M.James. pain E11.9 Type 2 diabetes mellitus without complications I10 Essential (primary) hypertension E78.5 Hyperlipidemia, unspecified Office Visit 05/21/2018 11:28a [facility] R07.89 Other chest Assoc,pc Kalyan Michi, pain Hospitalists PA[employer] KEEPER Z79.84 FPC (current) use of oral hypoglycemic drugs E11.9 Type 2 diabetes mellitus without complications F41.9 Anxiety disorder, unspecified Office Visit 05/20/2018 11:27a [facility] Vanessa R07.9 Chest pain, Assoc,pc Kalyan Michi, unspecified Hospitalists PAWN SH[employer] KEEPER F41.9 Anxiety disorder, unspecified G89.29 Other chronic pain E11.9 Type 2 diabetes mellitus without complications Office Visit 03/24/2018 10:16a [facility] Vanessa R07.89 Other chest Assoc,pc [facility] Michi, pain Hospitalists PAWN SHOP KEEPER E11.9 Type 2 diabetes mellitus without complications I10 Essential (primary) hypertension E78.5 Hyperlipidemia, unspecified Office Visit 03/23/2018 10:15a [facility] Rossy Tiradoima, R07.89 Other chest Assoc,pc Rodrick pain Hospitalists E11.9 Type 2 diabetes mellitus without complications I10 Essential (primary) hypertension E78.5 Hyperlipidemia, unspecified E66.01 Morbid (severe) obesity due to excess calories Z68.41 Body mass index (BMI) 40.0-44.9, adult Office Visit 03/02/2018 [facility] Dusty E11.9 Type 2 diabetes 10:02a Assjasmin lombardi M.D. mellitus without Hospitalists complications E78.5 Hyperlipidemia, unspecified I10 Essential (primary) hypertension E03.9 Hypothyroidism, unspecified E66.01 Morbid (severe) obesity due to excess calories Z95.0 Presence of cardiac pacemaker R52 Pain, unspecified Office Visit 03/01/2018 10:02a [facility] Dusty R52 Pain, unspecified Assocjasmin M.D. 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 E11.9 Type 2 diabetes mellitus without complications E03.9 Hypothyroidism, unspecified Office Visit 02/28/2018 10:02a [facility] Kris Staples M25.551 Pain in Assoc,jasmin Butler M.D.,FACP right hip Hospitalists M54.5 Low back pain E11.9 Type 2 diabetes mellitus without complications I10 Essential (primary) hypertension W19.xxxA Unspecified fall, initial encounter Office Visit 02/17/2018 9:15a [facility] Rizo E11.9 Type 2 diabetes MD Miriam mellitus without complications I10 Essential (primary) hypertension E03.9 Hypothyroidism, unspecified F41.9 Anxiety disorder, unspecified Z74.1 Need for assistance with personal care R26.2 Difficulty in walking, not elsewhere classified Office Visit 01/23/2018 8:30a [facility] Haresh Rizo F41.9 Anxiety disorder, MD Miriam unspecified Z74.1 Need for assistance with personal care E11.9 Type 2 diabetes mellitus without complications E66.9 Obesity, unspecified I10 Essential (primary) hypertension E03.9 Hypothyroidism, unspecified E78.5 Hyperlipidemia, unspecified Z68.42 Body mass index (BMI) 45.0-49.9, adult Office Visit 01/20/2018 12:57p [facility] Suzy Z74.1 Need for Assoc,jasmin Bryant, BABAR assistance with Hospitalists personal care F41.9 Anxiety disorder, unspecified E11.9 Type 2 diabetes mellitus without complications I25.10 Athscl heart disease of [place] coronary artery w/o ang pctrs I10 Essential (primary) hypertension E78.5 Hyperlipidemia, unspecified E03.9 Hypothyroidism, unspecified E66.01 Morbid (severe) obesity due to excess calories Z68.41 Body mass index (BMI) 40.0-44.9, adult Office Visit 01/19/2018 12:56p [facility] Rossy F41.9 Anxiety disorder, Assoc,jasmin Bay M.D. [...] fall, initial encounter Office Visit 12/19/2017 11:40a [facility] Noemy R07.9 Chest pain, Assoc,jasmin Robertson D.O. unspecified Hospitalists I50.30 Unspecified diastolic (congestive) heart failure M25.551 Pain in right hip E11.65 Type 2 diabetes mellitus with hyperglycemia Office Visit 12/18/2017 11:40a [facility] Noemy M25.551 Pain in Assoc,James Coburn.Tracy. right hip Hospitalists E11.9 Type 2 diabetes mellitus without complications I50.9 Heart failure, unspecified I10 Essential (primary) hypertension Office Visit 12/17/2017 11:40a [facility] Noemy I50.9 Heart failure, Assoc,James Coburn.Tracy. unspecified Hospitalists E11.9 Type 2 diabetes mellitus without complications M25.551 Pain in right hip Z68.42 Body mass index (BMI) 45.0-49.9, adult Office Visit 12/16/2017 [facility] Deisy Summers, I50.9 Heart failure , 11:39a Assjasmin lombardi M.D. unspecified Hospitalists I10 Essential (primary) hypertension E11.9 Type 2 diabetes mellitus without complications E03.9 Hypothyroidism, unspecified Office Visit 12/16/2017 [facility] Bruce Staples R07.9 Chest pain, 11:57a Of Mere Alex M.D. unspecified Office Visit 12/15/2017 [facility] Deisy Summers, R07.9 Chest pain, 11:39a Assjasmin lombardi M.D. unspecified Hospitalists I10 Essential (primary) hypertension I50.9 Heart failure, unspecified E11.9 Type 2 diabetes mellitus without complications Office Visit 12/14/2017 [facility] Bebeto Barroso R07.9 Chest pain, 11:38a Assocjasmin II, M.D. unspecified Hospitalists I10 Essential (primary) hypertension E78.5 Hyperlipidemia, unspecified E11.9 Type 2 diabetes mellitus without complications Office Visit 04/30/2017 9:18a [facility] [place]y [place], R55 Syncope and Assocjasmin M.D. collapse Hospitalists R07.9 Chest pain, unspecified I10 Essential (primary) hypertension E11.8 Type 2 diabetes mellitus with unspecified complications Office Visit 04/29/2017 9:17a [facility] [place], R55 Syncope and Assocjasmin M.D. collapse Hospitalists R07.9 Chest pain, unspecified E11.8 Type 2 diabetes mellitus with unspecified complications I10 Essential (primary) hypertension Office Visit 04/28/2017 9:40a [facility] Burna M62.89 Other specified Of Etta Villatoro M.D. disorders of muscle Office Visit 04/28/2017 9:16a [facility] Rossy R55 Syncope and Assocjasmin M.D. collapse Hospitalists R07.9 Chest pain, unspecified I10 Essential (primary) hypertension E11.8 Type 2 diabetes mellitus with unspecified complications Office Visit 04/27/2017 9:15a [facility] [place], R55 Syncope and Assocjasmin M.D. collapse Hospitalists R07.9 Chest pain, unspecified I10 Essential (primary) hypertension E11.8 Type 2 diabetes mellitus with unspecified complications Office Visit 04/26/2017 9:14a [facility] [place], R55 Syncope and Assocjasmin M.D. collapse Hospitalists R07.9 Chest pain, unspecified I10 Essential (primary) hypertension E11.8 Type 2 diabetes mellitus with unspecified complications [facility] [place] R55 Syncope and 9:13a Assoc,pc PA collapse Hospitalists R07.9 Chest pain, unspecified I10 Essential (primary) hypertension E11.8 Type 2 diabetes mellitus with unspecified complications [facility] [place], R55 Syncope and 9:12a Assoc,pc PA collapse Hospitalists R07.9 Chest pain, unspecified I10 Essential (primary) hypertension E11.8 Type 2 diabetes mellitus with unspecified complications Office Visit 04/24/2017 4:26p [facility] Abelino Smalls R55 Syncope and Of [facility] DO Lemuel [facility] collapse Z95.0 Presence of cardiac pacemaker Office Visit 04/23/2017 9:11a [facility] Raymond Torres, R55 Syncope and Assoc,pc N.P. collapse Hospitalists R07.9 Chest pain, unspecified I10 Essential (primary) hypertension E11.8 Type 2 diabetes mellitus with unspecified complications Office Visit 02/21/2017 11:07a [facility] Junior Escobar, R07.9 Chest pain, Assoc,pc unspecified Hospitalists G89.29 Other chronic pain F41.9 Anxiety disorder, unspecified E11.9 Type 2 diabetes mellitus without complications Office Visit 02/20/2017 11:06a [facility] Kolton R07.9 Chest pain, Assoc,pc Rodrick Loredo unspecified Hospitalists G89.29 Other chronic pain F41.9 Anxiety disorder, unspecified E11.9 Type 2 diabetes mellitus without complications Office Visit 02/19/2017 11:06a [facility] Jassi R07.9 Chest pain, Assoc,pc MODESTO Couch unspecified Hospitalists G89.29 Other chronic pain F41.9 Anxiety disorder, unspecified E11.9 Type 2 diabetes mellitus without complications Office Visit 02/18/2017 11:05a [facility] Jie Mcdonald, R07.9 Chest pain , Assoc,pc N.P. unspecified Hospitalists G89.29 Other chronic pain E11.9 Type 2 diabetes mellitus without complications F41.9 Anxiety disorder, unspecified [facility] Chest pain, Visit 11:04a Assoc,pc MODESTO [place] unspecified Hospitalists G89.29 Other chronic pain E11.9 Type 2 diabetes mellitus without complications F41.9 Anxiety disorder, unspecified Office Visit 02/14/2017 1:07p [facility] Christiandelano Caballero, R55 Syncope and Assoc,pc collapse Hospitalists E11.8 Type 2 diabetes mellitus with unspecified complications G89.29 Other chronic pain T79.6xxA Traumatic ischemia of muscle, initial encounter Office Visit 02/13/2017 1:06p [facility] Christiandelano Caballero, R55 Syncope and Assoc,pc collapse Hospitalists E11.8 Type 2 diabetes mellitus with unspecified complications G89.29 Other chronic pain T79.6xxA Traumatic ischemia of muscle, initial encounter Office Visit 02/12/2017 1:06p [facility] Marisol Nina, R55 Syncope and Assoc,pc collapse Hospitalists E11.8 Type 2 diabetes mellitus with unspecified complications G89.29 Other chronic pain T79.6xxA Traumatic ischemia of muscle, initial encounter Office Visit 02/11/2017 1:05p [facility] Deisy Summers, R55 Syncope and Assocjasmin M.D. collapse Hospitalists E11.8 Type 2 diabetes mellitus with unspecified complications G89.29 Other chronic pain T79.6xxA Traumatic ischemia of muscle, initial encounter Office Visit 01/14/2017 1:00p [facility] Deisy Summers, M25.562 Pain in left M.D. knee G89.29 Other chronic pain I10 Essential (primary) hypertension E11.9 Type 2 diabetes mellitus without complications Office Visit 12/31/2016 1:52p [facility] Dusty R07.1 Chest pain on Assoc,jasmin Brooke M.D. breathing Hospitalists R60.0 Localized edema R94.31 Abnormal electrocardiogram [ECG] [EKG] Office Visit 10/05/2016 [facility] Jacquelyn Staples R07.9 Chest pain, 3:32p Of Mere Alex M.D. unspecified Office Visit 10/03/2016 [facility] Deisy Summers, R07.1 Chest pain on 2:50p jasmin Leal M.D. breathing Hospitalists M25.512 Pain in left shoulder Office Visit 03/14/2016 Hina Smalls Z01.810 Encounter for 3:00p Cardiology Of Hdez, preprocedural [facility] FAC cardiovascular examination I10 Essential (primary) hypertension E11.9 Type 2 diabetes mellitus without complications E78.5 Hyperlipidemia, unspecified Z95.0 Presence of cardiac pacemaker M17.12 Unilateral primary osteoarthritis, left knee Office Visit 07/07/2015 [facility] Christel Smalls R41.0 Disorientation, 10:05a Assoc,pc Wilfrido, N.P. unspecified Hospitalists R79.89 Other specified abnormal findings of blood chemistry E03.9 Hypothyroidism, unspecified I10 Essential (primary) hypertension Office Visit 02/16/2015 [facility] Bebeto Kenronaldo 427.1 Paroxysmal 12:55p Assoc,jasmin RIVERA M.D. Ventricular Hospitalists Tachycardia 427.31 Atrial Fibrillation 428.0 Congestive Heart Failure Unspecified Office Visit 02/03/2015 [facility] Suzy 009.0 Infectious Colitis 1:08p Assoc,jasmin Bryant, BABAR Enter[facility] Hospitalists Gastroenteritis 787.91 Diarrhea 558.9 Gastroenteritis & Colitis Noninfectious Other Office Visit 10/27/2014 10:15a Orthopedic Joselin 719.41 Pain Joint Services Of ANJANA Lyn Shoulder Region C.M.A. Office Visit 10/22/2013 1:45p Orthopedic Linda Sanderson V43.64 Hip Replacement Services Paolo Mensah By Other Means C.M.A. 719.45 Pain Joint Pelvic Region & Thigh Office Visit 10/08/2013 2:15p Orthopedic Joselin V43.64 Hip Replacement Services Of ANJANA Lyn By Other Means C.M.A. 719.45 Pain Joint Pelvic Region & Thigh Office Visit 09/30/2013 2:27p [facility] Noemy 786.51 Pain Precordial Assoc,pc Юлия Robertson Hospitalists 789.01 Pain Abdominal Right Upper Quadrant 787.01 Nausea W/ Vomiting 564.1 Irritable Bowel Syndrome Office Visit 09/29/2013 2:25p [facility] Jie Mcdonald 786.51 Pain Precordial Assoc,pc N.P. Hospitalists 789.01 Pain Abdominal Right Upper Quadrant 787.01 Nausea W/ Vomiting Office Visit 06/22/2013 8:00a Orthopedic Services Suresh Cantu, 840.4 Sprains & Of CBuzz Mensah Strains Rotator Cuff (Capsule) Office Visit 03/18/2012 6:53p [facility] 780.2 Sync[facility] & Assoc,pc [place] Collapse Hospitalists 401.9 Hypertension Unspec 272.2 Hyperlipidemia Mixed Office Visit 03/14/2012 6:52p [facility] Rossy 780.2 Syncope & Assoc,jasmin Bay M.D. Collapse Hospitalists 401.9 Hypertension Unspec 272.2 Hyperlipidemia Mixed Office Visit 03/13/2012 1:46p [facility] Dick Grace, 780.2 Syncope & Assoc,pc Rodrick Collapse Hospitalists 401.9 Hypertension Unspec 272.2 Hyperlipidemia Mixed Office Visit 03/12/2012 6:50p [facility] Dick Grace 780.2 Syncope & Assoc,jasmin Mensah Collapse Hospitalists 401.9 Hypertension Unspec 272.2 Hyperlipidemia Mixed Office Visit 08/12/2011 10:45a Neurosurgery Dylan Vazquez 724.2 Lumbago Services Of [facility] Rodrick Parkinson Office Visit 07/12/2011 11:30a Neurosurgery Dylan Vazquez 847.2 Sprains & Services Of Mere Parkinson M.D. Strains Lumbar 847.1 Sprains & Strains Thoracic 719.45 Pain Joint Pelvic Region & Thigh Office Visit 06/23/2006 10:20a [facility] Qutaybeh S. 786.50 Pain Chest Rodrick Harkins Unspec 794.31 Electrocardiogram (ECG) (EKG) Abnormal V72.81 Examination Preoperative Cardiovascular Plan of Treatment Future Appointment(s):12/31/2018 3:40 pm - David Pereira MD at [facility] Kiqqqmxteoz80/13/2018 - Linda Sanderson M.D.M25.551 Pain in right hipNew Therapy: Physical TherapyFollow up:Follow up: None [id number] Presence of right artificial hip [id number] Unspecified fall, initial encounter
--- OUTSIDE RECORDS SUMMARY | 2018-12-25 01:22 | XMS REPORT | Continuity of Care Document ---
:1955 External Reference #:[id number] Author Name Beena Springecca Care Team Providers Name Role Phone Olga Cavanaugh MD Primary Care Physician Unavailable Payers Date Identification Numbers Payment Provider Subscriber Policy Number: [id number] [employer] Medicare Miriam Barragan PayID: [id number] [address] [place] [address] Policy Number: [id number] Medicaid Miriam Barragan Group Name: 1 1 [address] PayID: [id number] [place] [address] Problems Active Problems Provider Date Essential hypertension Abelino Hdez DO [facility] Onset: 03/14/2016 Chest pain Bebeto Barroso II, M.D. Onset: 12/14/2017 Hyperlipidemia Bebeto Barroso II, M.D. Onset: 12/14/2017 Type 2 diabetes mellitus Bebeto Barroos II, M.D. Onset: 12/14/2017 Heart failure, unspecified [...] Dusty Brooke M.D. Onset: 03/02/2018 Pain, unspecified Dusty Brooke M.D. Onset: 03/02/2018 Family History Date Family Member(s) Observation Comments General heart disease General diabetes General Kidney Disease Father due to Emphysema () Father due to AR () - x2 age 50 yr,age 63 [...] to 6 09/08/2013 hours as needed pain [place] 1-2 tab po q4h 60tabs Suresh Cantu M.D. 06/22/2013 - 5-325mg Tablets prn pain 08/30/2013 [place] 1-2 po q4h prn 40tabs [place], [...] Result H/L Range Note Laboratory test 10/14/2013 [facility] C Reactive 14.56 mg/L High < 5.[address] [place] [address] [phone] CBC Auto Diff 10/14/2013 [facility] White Blood 7.2 10^3/uL N 4.8-10.[address] [place] [address] [phone] Red Blood Count 3.98 10^6/uL Low 4.0-5.4 [...] Cells % 0.1 N Laboratory test 10/14/2013 [facility] Erythrocyte Sed 60 mm/Hr High 0-[address] [place] [address] [phone] 1 Acute inflammation: >10.00 Procedures Date Code Description Status 11/23/2018 74583 I&D Abscess Simple Completed 09/03/2018 96828 EKG, Interpretation Only Completed 08/31/2018 85417 Treadmill Interp/Report Only Completed 08/31/2018 70127 Stress Test Supervsn W/Out I/R Completed 08/31/2018 47844 EKG, Interpretation Only Completed 08/30/2018 43258 ECHO Transthorasic Realtime 2D W Doppler & Color Flow Hosp Completed 08/29/2018 19908 EKG, Interpretation Only Completed 05/20/2018 57119 Treadmill Interp/Report Only Completed 05/20/2018 90220 Stress Test Supervsn W/Out I/R Completed 03/02/2018 72003 EKG, Interpretation Only Completed 12/15/2017 30262 Stress Test Supervsn W/Out I/R Completed 12/15/2017 72709 Treadmill Interp/Report Only Completed 12/15/2017 51239 ECHO Transthorasic Realtime 2D W Doppler & Color Flow Hosp Completed 04/24/2017 57906 ECHO Transthorasic Realtime 2D W Doppler & Color Flow Hosp Completed 04/24/2017 98794 Interrogation Device Eval In Person W/DR Completed Analysis,Single,Dual,Mul 04/24/2017 59423 EKG, Interpretation Only Completed 04/23/2017 35282 Interrogation Device Eval In Person W/DR Completed Analysis,Single,Dual,Mul 02/18/2017 97202 EKG, Interpretation Only Completed 02/12/2017 59576 ECHO Transthorasic Realtime 2D W Doppler & Color Flow Hosp Completed 10/03/2016 27383 Treadmill Interp/Report Only Completed 10/03/2016 78667 Stress Test Supervsn W/Out I/R Completed 03/14/2016 24063 EKG Tracing & Interpretation Completed 07/07/2015 29351 ECHO Transthorasic Realtime 2D W Doppler & Color Flow Hosp Completed 09/30/2013 02657 Stress Test Supervsn W/Out I/R Completed 09/30/2013 60424 Treadmill Interp/Report Only Completed 07/07/2013 44466 Arthroscopy Shoulder,W/Rotator Cuff Repair Completed 07/07/2013 42237 Arthroscopy Shoulder,W/Rotator Cuff Repair Completed 03/12/2012 57552 EEG Recording Awake & Drowsy Completed 06/27/2006 70282 Stress ECHO Interpretation/Report Hospital Completed 06/27/2006 17061 Stress ECHO Interpretation/Report Hospital Completed 06/27/2006 51131 Treadmill Interp/Report Only Completed 06/27/2006 47512 Stress Test Supervsn W/Out I/R Completed 06/23/2006 79475 EKG Tracing & Interpretation Completed 06/23/2006 54186 Echocardiogram Completed 06/23/2006 86437 Echocardiogram Completed 06/23/2006 26167 Pulse Doppler & Continuous Wave Completed 06/23/2006 76873 Color Doppler Completed 06/23/2006 59350 Color Doppler Completed 07/11/2005 03651 Color Doppler Completed 07/11/2005 93415 Pulse Doppler & Continuous Wave Completed 07/11/2005 16350 Echocardiogram Completed 08/08/2004 70674 Selective Coronary Angiography Completed 08/08/2004 66045 S/I/R Inj Proc Vent &/Or Atrial Completed 08/08/2004 19713 Coronary Angiography Completed 08/08/2004 02499 Inj Proc LFT Vent/LFT Atrl Angio Completed 08/08/2004 53105 Left Heart Catheterization Completed Encounters Type Date Location Provider Dx Diagnosis Office Visit 09/04/2018 [facility] Mallorie Kyra, STUDIO DATA ANALYST M54.9 Dorsalgia, 10:54a Assoc,pc unspecified Hospitalists G89.29 Other chronic pain Office Visit 09/03/2018 10:53a [facility] Mallorie Kyra, M54.9 Dorsalgia, Assoc,pc STUDIO DATA ANALYST unspecified Hospitalists G89.29 Other chronic pain I50.9 Heart failure, unspecified E11.9 Type 2 diabetes mellitus without complications E78.00 Pure hypercholesterolemia, unspecified E03.9 Hypothyroidism, unspecified Office Visit 09/02/2018 10:53a [facility] Mallorie Kyra, M54.9 Dorsalgia, Assoc,pc STUDIO DATA ANALYST unspecified Hospitalists G89.29 Other chronic pain I50.9 Heart failure, unspecified E11.9 Type 2 diabetes mellitus without complications E78.00 Pure hypercholesterolemia, unspecified E03.9 Hypothyroidism, unspecified Office Visit 09/01/2018 2:21p Orthopedic Angela Schulz, M25.551 Pain in right Services Of [facility] hip Z96.641 Presence of right artificial hip joint Office Visit 09/01/2018 10:52a [facility] Vanessa M54.9 Dorsalgia, Assoc,pc Kalyan Borden, unspecified Hospitalists STUDIO DATA ANALYST G89.29 Other chronic pain R07.9 Chest pain, unspecified I50.9 Heart failure, unspecified E11.9 Type 2 diabetes mellitus without complications E78.5 Hyperlipidemia, unspecified E03.9 Hypothyroidism, unspecified Z95.0 Presence of cardiac pacemaker I49.5 Sick sinus syndrome Office Visit 08/31/2018 [facility] Bruce Staples R07.9 Chest pain, 4:04p Of Mere Alex M.D. unspecified Office Visit 08/31/2018 [facility] Vassilios M54.16 Radiculopathy, 7:00a Services Of Mere Camarena MD lumbar region Office Visit 08/31/2018 [facility] Jassi Couch, M54.9 Dorsalgia, 10:52a Assoc,pc PA unspecified Hospitalists G89.29 Other chronic pain R07.9 Chest pain, unspecified I50.30 Unspecified diastolic (congestive) heart failure E11.9 Type 2 diabetes mellitus without complications E78.00 Pure hypercholesterolemia, unspecified E03.9 Hypothyroidism, unspecified Z95.0 Presence of cardiac pacemaker Office Visit 08/30/2018 10:52a [facility] Jassi G89.29 Other chronic Assoc,MODESTO Stevens pain Hospitalists R07.9 Chest pain, unspecified I50.30 Unspecified diastolic (congestive) heart failure E11.9 Type 2 diabetes mellitus without complications E78.00 Pure hypercholesterolemia, unspecified E03.9 Hypothyroidism, unspecified Z95.0 Presence of cardiac pacemaker R19.7 Diarrhea, unspecified Office 08/30/2018 Neurosurgery Vassilios M54.16 Radiculopathy, Visit 7:00a Services Of Meer Camarena MD lumbar region Office 08/29/2018 Neurosurgery Vassilios M54.16 Radiculopathy, Visit 7:00a Services Of Mere Camarena MD lumbar region Z98.1 Arthrodesis status Office Visit 08/29/2018 10:51a [facility] Juniorrhonda Landryd, R07.9 Chest pain, Assoc,pc unspecified Hospitalists M54.9 Dorsalgia, unspecified G89.29 Other chronic pain I25.10 Athscl heart disease of [place] coronary artery w/o ang pctrs I50.30 Unspecified diastolic (congestive) heart failure E03.9 Hypothyroidism, unspecified E66.01 Morbid (severe) obesity due to excess calories Office Visit 06/18/2018 [facility] Kai Frederic M54.5 Low back pain 11:33a Assoc,jasmin Newberry MD Hospitalists Office Visit 06/17/2018 [facility] Kainuria De La Garza M54.9 Dorsalgia, 11:32a Assoc,jasmin Newberry MD unspecified Hospitalists F41.9 Anxiety disorder, unspecified G89.29 Other chronic pain Office Visit 06/14/2018 11:32a [facility] Jie Harry M54.5 Low back Assoc,pc Hospitalists N.P. pain F41.9 Anxiety disorder, unspecified G89.29 Other chronic pain Office Visit 06/12/2018 11:31a [facility] Rossyxiomy aBy, M54.5 Low back Assoc,pc Hospitalists M.James. pain E11.9 Type 2 diabetes mellitus without complications I10 Essential (primary) hypertension E78.5 Hyperlipidemia, unspecified Office Visit 05/21/2018 11:28a [facility] R07.89 Other chest Assoc,pc Kalyan Michi, pain Hospitalists STUDIO DATA ANALYST Z79.84 prison (current) use of oral hypoglycemic drugs E11.9 Type 2 diabetes mellitus without complications F41.9 Anxiety disorder, unspecified Office Visit 05/20/2018 11:27a [facility] Vanessa R07.9 Chest pain, Assoc,pc Kalyan Michi, unspecified Hospitalists STUDIO DATA ANALYST F41.9 Anxiety disorder, unspecified G89.29 Other chronic pain E11.9 Type 2 diabetes mellitus without complications Office Visit 03/24/2018 10:16a [facility] Vanessa R07.89 Other chest Assoc,pc [facility] Michi, pain Hospitalists STUDIO DATA ANALYST E11.9 Type 2 diabetes mellitus without complications I10 Essential (primary) hypertension E78.5 Hyperlipidemia, unspecified Office Visit 03/23/2018 10:15a [facility] Rossy Tiradoima, R07.89 Other chest Assoc,pc Rodrick pain Hospitalists E11.9 Type 2 diabetes mellitus without complications I10 Essential (primary) hypertension E78.5 Hyperlipidemia, unspecified E66.01 Morbid (severe) obesity due to excess calories Z68.41 Body mass index (BMI) 40.0-44.9, adult Office Visit 03/02/2018 [facility] Dusty E11.9 Type 2 diabetes 10:02a Assjasmin lombardi M.D. mellitus without Hospitalists complications E78.5 Hyperlipidemia, unspecified I10 Essential (primary) hypertension E03.9 Hypothyroidism, unspecified E66.01 Morbid (severe) obesity due to excess calories Z95.0 Presence of cardiac pacemaker R52 Pain, unspecified Office Visit 03/01/2018 10:02a [facility] Dusty R52 Pain, unspecified Assocjasmin M.D. Hospitalists I50.30 Unspecified diastolic (congestive) heart failure I11.0 Hypertensive heart disease with heart failure Z79.4 watermelon inspector (current) use of insulin E11.9 Type 2 diabetes mellitus without complications E03.9 Hypothyroidism, unspecified Office Visit 02/28/2018 10:02a [facility] Kris Staples M25.551 Pain in Assoc,jasmin Butler M.D.,FACP right hip Hospitalists M54.5 Low back pain E11.9 Type 2 diabetes mellitus without complications I10 Essential (primary) hypertension W19.xxxA Unspecified fall, initial encounter Office Visit 02/17/2018 9:15a [place] Haresh Rizo E11.9 Type 2 diabetes MD Miriam mellitus without complications I10 Essential (primary) hypertension E03.9 Hypothyroidism, unspecified F41.9 Anxiety disorder, unspecified Z74.1 Need for assistance with personal care R26.2 Difficulty in walking, not elsewhere classified Office Visit 01/23/2018 8:30a [place] Haresh Rizo F41.9 Anxiety disorder, MD Miriam unspecified Z74.1 Need for assistance with personal care E11.9 Type 2 diabetes mellitus without complications E66.9 Obesity, unspecified I10 Essential (primary) hypertension E03.9 Hypothyroidism, unspecified E78.5 Hyperlipidemia, unspecified Z68.42 Body mass index (BMI) 45.0-49.9, adult Office Visit 01/20/2018 12:57p [facility] Suzy Z74.1 Need for Assoc,jasmin Bryant, BABAR assistance with Hospitalists personal care F41.9 Anxiety disorder, unspecified E11.9 Type 2 diabetes mellitus without complications I25.10 Athscl heart disease of [place] coronary artery w/o ang pctrs I10 Essential (primary) hypertension E78.5 Hyperlipidemia, unspecified E03.9 Hypothyroidism, unspecified E66.01 Morbid (severe) obesity due to excess calories Z68.41 Body mass index (BMI) 40.0-44.9, adult Office Visit 01/19/2018 12:56p [facility] Rossy F41.9 Anxiety disorder, Assoc,jasmin Bay M.D. [...] fall, initial encounter Office Visit 12/19/2017 11:40a [facility] Noemy R07.9 Chest pain, Assoc,jasmin Robertson D.O. unspecified Hospitalists I50.30 Unspecified diastolic (congestive) heart failure M25.551 Pain in right hip E11.65 Type 2 diabetes mellitus with hyperglycemia Office Visit 12/18/2017 11:40a [facility] Noemy M25.551 Pain in Assoc,James Coburn.Tracy. right hip Hospitalists E11.9 Type 2 diabetes mellitus without complications I50.9 Heart failure, unspecified I10 Essential (primary) hypertension Office Visit 12/17/2017 11:40a [facility] Noemy I50.9 Heart failure, Assoc,James Coburn.Tracy. unspecified Hospitalists E11.9 Type 2 diabetes mellitus without complications M25.551 Pain in right hip Z68.42 Body mass index (BMI) 45.0-49.9, adult Office Visit 12/16/2017 [facility] Deisy Summers, I50.9 Heart failure , 11:39a Assjasmin lombardi M.D. unspecified Hospitalists I10 Essential (primary) hypertension E11.9 Type 2 diabetes mellitus without complications E03.9 Hypothyroidism, unspecified Office Visit 12/16/2017 [facility] Bruce Staples R07.9 Chest pain, 11:57a Of Mere Alex M.D. unspecified Office Visit 12/15/2017 [facility] Deisy Summers, R07.9 Chest pain, 11:39a Assjasmin lombardi M.D. unspecified Hospitalists I10 Essential (primary) hypertension I50.9 Heart failure, unspecified E11.9 Type 2 diabetes mellitus without complications Office Visit 12/14/2017 [facility] Bebeto Barroso R07.9 Chest pain, 11:38a Assocjasmin II, M.D. unspecified Hospitalists I10 Essential (primary) hypertension E78.5 Hyperlipidemia, unspecified E11.9 Type 2 diabetes mellitus without complications Office Visit 04/30/2017 9:18a [facility] Rossy Bay, R55 Syncope and Assocjasmin M.D. collapse Hospitalists R07.9 Chest pain, unspecified I10 Essential (primary) hypertension E11.8 Type 2 diabetes mellitus with unspecified complications Office Visit 04/29/2017 9:17a [facility] Rossy Bay, R55 Syncope and Assocjasmin M.D. collapse Hospitalists R07.9 Chest pain, unspecified E11.8 Type 2 diabetes mellitus with unspecified complications I10 Essential (primary) hypertension Office Visit 04/28/2017 9:40a [facility] [place] M62.89 Other specified Of Etta Villatoro M.D. disorders of muscle Office Visit 04/28/2017 9:16a [facility] Rossy R55 Syncope and Assocjasmin M.D. collapse Hospitalists R07.9 Chest pain, unspecified I10 Essential (primary) hypertension E11.8 Type 2 diabetes mellitus with unspecified complications Office Visit 04/27/2017 9:15a [facility] Rossy Bay, R55 Syncope and Assocjasmin M.D. collapse Hospitalists R07.9 Chest pain, unspecified I10 Essential (primary) hypertension E11.8 Type 2 diabetes mellitus with unspecified complications Office Visit 04/26/2017 9:14a [facility] [place]y [place], R55 Syncope and Assocjasmin M.D. collapse Hospitalists R07.9 Chest pain, unspecified I10 Essential (primary) hypertension E11.8 Type 2 diabetes mellitus with unspecified complications [facility] Syncope and 9:13a Assoc,pc PA collapse Hospitalists R07.9 Chest pain, unspecified I10 Essential (primary) hypertension E11.8 Type 2 diabetes mellitus with unspecified complications [facility]2017 [facility] [place], R55 Syncope and 9:12a Assoc,pc PA collapse Hospitalists R07.9 Chest pain, unspecified I10 Essential (primary) hypertension E11.8 Type 2 diabetes mellitus with unspecified complications Office Visit 04/24/2017 4:26p [facility] Abelino Smalls R55 Syncope and Of [facility] DO Lemuel [facility] collapse Z95.0 Presence of cardiac pacemaker Office Visit 04/23/2017 9:11a [facility] Raymond Torres, R55 Syncope and Assoc,pc N.P. collapse Hospitalists R07.9 Chest pain, unspecified I10 Essential (primary) hypertension E11.8 Type 2 diabetes mellitus with unspecified complications Office Visit 02/21/2017 11:07a [facility] Junior Escobar, R07.9 Chest pain, Assoc,pc unspecified Hospitalists G89.29 Other chronic pain F41.9 Anxiety disorder, unspecified E11.9 Type 2 diabetes mellitus without complications Office Visit 02/20/2017 11:06a [facility] Kolton R07.9 Chest pain, Assoc,pc Rodrick Loredo unspecified Hospitalists G89.29 Other chronic pain F41.9 Anxiety disorder, unspecified E11.9 Type 2 diabetes mellitus without complications Office Visit 02/19/2017 11:06a [facility] Jassi R07.9 Chest pain, Assoc,pc MODESTO Couch unspecified Hospitalists G89.29 Other chronic pain F41.9 Anxiety disorder, unspecified E11.9 Type 2 diabetes mellitus without complications Office Visit 02/18/2017 11:05a [facility] Jie Mcdonald, R07.9 Chest pain , Assoc,pc N.P. unspecified Hospitalists G89.29 Other chronic pain E11.9 Type 2 diabetes mellitus without complications F41.9 Anxiety disorder, unspecified [facility] Chest [facility], Visit 11:04a Assoc,pc MODESTO Washington unspecified Hospitalists G89.29 Other chronic pain E11.9 Type 2 diabetes mellitus without complications F41.9 Anxiety disorder, unspecified Office Visit 02/14/2017 1:07p [facility] Christiandelano Caballero, R55 Syncope and Assoc,pc collapse Hospitalists E11.8 Type 2 diabetes mellitus with unspecified complications G89.29 Other chronic pain T79.6xxA Traumatic ischemia of muscle, initial encounter Office Visit 02/13/2017 1:06p [facility] Christiandelano Caballero, R55 Syncope and Assoc,pc collapse Hospitalists E11.8 Type 2 diabetes mellitus with unspecified complications G89.29 Other chronic pain T79.6xxA Traumatic ischemia of muscle, initial encounter Office Visit 02/12/2017 1:06p [facility] Marisol Nina, R55 Syncope and Assoc,pc collapse Hospitalists E11.8 Type 2 diabetes mellitus with unspecified complications G89.29 Other chronic pain T79.6xxA Traumatic ischemia of muscle, initial encounter Office Visit 02/11/2017 1:05p [facility] Deisy Summers, R55 Syncope and Assocjasmin M.D. collapse Hospitalists E11.8 Type 2 diabetes mellitus with unspecified complications G89.29 Other chronic pain T79.6xxA Traumatic ischemia of muscle, initial encounter Office Visit 01/14/2017 1:00p [facility] Deisy Summers, M25.562 Pain in left M.D. knee G89.29 Other chronic pain I10 Essential (primary) hypertension E11.9 Type 2 diabetes mellitus without complications Office Visit 12/31/2016 1:52p [facility] Dusty R07.1 Chest pain on Assoc,jasmin Brooke M.D. breathing Hospitalists R60.0 Localized edema R94.31 Abnormal electrocardiogram [ECG] [EKG] Office Visit 10/05/2016 [place] Jacquelyn Staples R07.9 Chest pain, 3:32p Of Mere Alex M.D. unspecified Office Visit 10/03/2016 [facility] Deisy Summers, R07.1 Chest pain on 2:50p jasmin Leal M.D. breathing Hospitalists M25.512 Pain in left shoulder Office Visit 03/14/2016 Hina Smalls Z01.810 Encounter for 3:00p Cardiology Of Hdez, preprocedural [facility] FAC cardiovascular examination I10 Essential (primary) hypertension E11.9 Type 2 diabetes mellitus without complications E78.5 Hyperlipidemia, unspecified Z95.0 Presence of cardiac pacemaker M17.12 Unilateral primary osteoarthritis, left knee Office Visit 07/07/2015 [facility] Christel Smalls R41.0 Disorientation, 10:05a Assoc,pc Wilfrido, N.P. unspecified Hospitalists R79.89 Other specified abnormal findings of blood chemistry E03.9 Hypothyroidism, unspecified I10 Essential (primary) hypertension Office Visit 02/16/2015 [facility] Bebeto Kenronaldo 427.1 Paroxysmal 12:55p Assoc,jasmin RIVERA M.D. Ventricular Hospitalists Tachycardia 427.31 Atrial Fibrillation 428.0 Congestive Heart Failure Unspecified Office Visit 02/03/2015 [facility] Suzy 009.0 Infectious Colitis 1:08p Assoc,jasmin Bryant, [...] Region & Thigh Office Visit 09/30/2013 2:27p [facility] Noemy 786.51 Pain Precordial Assoc,pc Юлия Robertson Hospitalists 789.01 Pain Abdominal Right Upper Quadrant 787.01 Nausea W/ Vomiting 564.1 Irritable Bowel Syndrome Office Visit 09/29/2013 2:25p [facility] Jie Mcdonald 786.51 Pain Precordial Assoc,pc N.P. Hospitalists 789.01 Pain Abdominal Right Upper Quadrant 787.01 Nausea W/ Vomiting Office Visit 06/22/2013 8:00a [facility] Suresh Cantu, 840.4 Sprains & Of CBuzz Mensah Strains Rotator Cuff (Capsule) [facility]oc,pc [place] Collapse Hospitalists 401.9 Hypertension Unspec 272.2 Hyperlipidemia Mixed Office Visit 03/14/2012 6:52p [facility] Rossy 780.2 Syncope & Assoc,jasmin Bay M.D. Collapse Hospitalists 401.9 Hypertension Unspec 272.2 Hyperlipidemia Mixed Office Visit 03/13/2012 1:46p [facility] Dick Grace, 780.2 Syncope & Assoc,pc Rodrick Collapse Hospitalists 401.9 Hypertension Unspec 272.2 Hyperlipidemia Mixed Office Visit 03/12/2012 6:50p [facility] Dick Grace 780.2 Syncope & Assoc,jasmin Mensah Collapse Hospitalists 401.9 Hypertension Unspec 272.2 Hyperlipidemia Mixed Office Visit 08/12/2011 10:45a Neurosurgery Dylan Vazquez 724.2 Lumbago Services Of [facility] Rodrick Parkinson Office Visit 07/12/2011 11:30a Neurosurgery Dylan Vazquez 847.2 Sprains & Services Of Mere Parkinson M.D. Strains Lumbar 847.1 Sprains & Strains Thoracic 719.45 Pain Joint Pelvic Region & Thigh Office Visit 06/23/2006 10:20a [facility] Qutaybeh S. 786.50 Pain Chest Rodrick Harkins Unspec 794.31 Electrocardiogram (ECG) (EKG) Abnormal V72.81 Examination Preoperative Cardiovascular Plan of Treatment Future Appointment(s):12/31/2018 3:40 pm - David Pereira MD at [facility] Wfaopualblz24/13/2018 - Linda Sanderson M.D.M25.551 Pain in right hipNew Therapy: Physical TherapyFollow up:Follow up: None [id number] Presence of right artificial hip [id number].xxxA Unspecified fall, initial encounter
== END 2018-12-24 22:52 | disposition home or self-care (01) ==
LOC: ED 17:48
DX: R07.89 Other chest pain (principal); R55 Syncope and collapse; W19.XXXA Unspecified fall, initial encounter; Y92.9 Unspecified place or not applicable; Z88.1 Allergy status to other antibiotic agents; Z88.0 Allergy status to penicillin; Z88.2 Allergy status to sulfonamides; Z88.8 Allergy status to other drugs, medicaments and biological substances; E11.9 Type 2 diabetes mellitus without complications; E07.9 Disorder of thyroid, unspecified; I25.119 Atherosclerotic heart disease of native coronary artery with unspecified angina pectoris; I50.9 Heart failure, unspecified; I11.0 Hypertensive heart disease with heart failure; Z95.810 Presence of automatic (implantable) cardiac defibrillator
CPT/HCPCS: 36415; 71045; 72100; 80053; 83735; 84484; 85025; 85610; 93005; 96361; 96374; 96375; 99284; A9270-GY; J2270; J2405; J3475

== ENCOUNTER 2019-06-18 01:07 | Emergency (ER) | payer MEDICARE, MEDICAID ==
--- NOTE | 2019-06-18 01:10 | ED ---
HPI Chest Pain - HPI Summary HPI Summary: Patient is a 64 y/o F presenting to the ED via EMS for a chief complaint of constant left anterior chest pain that radiates to the left arm for the last hour. When the chest pain began, she was lying in bed. She describes the pain as a sharp sensation. Patient notes chills, shortness of breath, and diaphoresis. She denies nausea, lightheadedness, or dizziness. Any aggravating or alleviating factors are denied. Patient has a history of angina. - History of Current Complaint Hx Obtained From: Patient Onset/Duration: Started Minutes Ago, Atraumatic, Still Present Timing: Constant, Lasting Minutes Initial Severity: Moderate Current Severity: Moderate Pain Scale Used: 0-10 Numeric Chest Pain Location: Left Anterior Chest Pain Radiates: Yes Chest Pain Radiates To:: Arm - Left Character: Sharp/Stabbing Aggravating Factor(s): Nothing Alleviating Factor(s): Nothing Associated Signs and Symptoms: Positive: Chest Pain, Shortness of Breath, Chills , Diaphoresis. Negative: Dizziness, Lightheadedness, Nausea Related History: Obesity - Additional Pertinent History Primary Care Physician: ATUL - Allergy/Home Medications Allergies/Adverse Reactions: Allergies Allergy/AdvReac Type Severity Reaction Status Date / Time cefazolin [From Ancef] Allergy Unknown Verified 06/18/19 01:16 Reaction Details citalopram [From Celexa] Allergy Insomnia Verified 06/18/19 01:16 naproxen Allergy Vomiting Verified 06/18/19 01:16 NSAIDS (Non-Steroidal Allergy GI Upset Verified 06/18/19 01:16 Anti-Inflamma Penicillins Allergy Rash Verified 06/18/19 01:16 Sulfa (Sulfonamide Allergy Unknown Verified 06/18/19 01:16 Antibiotics) Reaction Details zaleplon [From Sonata] Allergy Insomnia Verified 06/18/19 01:16 Home Medications: Home Medications Furosemide TAB* [Lasix TAB*] 40 mg PO DAILY PRN 06/18/19 [History Confirmed ] PMH/Surg Hx/FS Hx/Imm Hx Previously Healthy: Yes Endocrine/Hematology History: Reports: Hx Blood Transfusions, Hx Diabetes, Hx Thyroid Disease Denies: Hx Anticoagulant Therapy, Hx Blood Disorders, Hx Bone Marrow Disease , Hx Systemic Lupus Erythematosus, Hx Sickle Cell Disease, Hx Anemia, Hx Unexplained Bleeding, Other Endocrine/Hematological Disorders Cardiovascular History: Reports: Hx Angina, Hx Auto Implanted Cardiovert Defib, Hx Cardiomegaly - SINCE IN HER TEENS, 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, Hx Congestive Heart Failure, Hx Coronary Artery Disease, Hx Deep Vein Thrombosis, Hx Embolism, Hx Hypertension, Hx Pacemaker/ICD, Other Cardiovascular Problems/Disorders - pericarditis Denies: Hx Aneurysm, Hx Angioplasty, Hx Cardiac Arrest, Hx Hypercholesterolemia, Hx Hypotension, Hx Myocardial Infarction, Hx Peripheral Vascular Disease, Hx Rheumatic Fever, Hx Syncope, Hx Valvular Heart Disease Respiratory History: Reports: Hx Chronic Bronchitis, Hx Pneumonia, Hx Pulmonary Edema, Other Respiratory Problems/Disorders - sob associated - inspiratory pain left ribs, abdominal distention per pt Denies: Hx Asthma, Hx Bronchopulmonary Dysplasia, Hx Chronic Obstructive Pulmonary Disease (COPD), Hx Cystic Fibrosis, Hx Lung Cancer, Hx Pleural Effusion, Hx Pulmonary Embolism, Hx Seasonal Allergies, Hx Sleep Apnea GI History: Reports: Hx Gastroesophageal Reflux Disease, Hx Gastrointestinal Bleed, Hx Hiatal Hernia, Hx Irritable Bowel, Other GI Disorders - ABDOMEN DISTENDED, IBS Denies: Hx Cirrhosis, Hx Crohn's Disease, Hx Diverticulosis, Hx Gall Bladder Disease, Hx Jaundice, Hx Obstructive Bowel, Hx Ileostomy, Hx Pyloric Stenosis, Hx Ulcer History: Denies: Hx Acute Renal Failure, Hx Benign Prostatic Hyperplasia, Hx Chronic Renal Failure, Hx Dialysis, Hx Kidney Infection, Hx Kidney Stones, Hx Renal Disease, Other Problems/Disorders Musculoskeletal History: Reports: Hx Back Problems - back surgery x 3, Hx Orthopedic Injury - knee, hip surgery hx, Other Musculoskeletal History - knee, hip surgery hx Denies: Hx Arthritis, Hx Bursitis, Hx Congenital Bone Abnormalities, Hx Fibromyalgia, Hx Gout, Hx Osteoporosis, Hx Scoliosis, Hx Tendonitis Sensory History: Reports: Hx Contacts or Glasses Denies: Hx Cataracts, Hx Eye Injury, Hx Eye Prosthesis, Hx Glaucoma, Hx Legally Blind, Hx Macular Degeneration, Hx Vision Problem, Hx Deafness, Hx Hearing Aid, Hx Hearing Problem, Other Sensory Impairments Opthamlomology History: Reports: Hx Contacts or Glasses Denies: Hx Cataracts, Hx Eye Injury, Hx Eye Prosthesis, Hx Glaucoma, Hx Legally Blind, Hx Macular Degeneration, Hx Vision Problem, Other Sensory Impairments EENT History: Denies: Hx Deafness Neurological History: Denies: Hx Dementia, Hx Developmental Delay, Hx Headaches, Hx Migraine, Hx Nerve Disease, Hx Seizures, Hx Spinal Cord Injury, Hx Transient Ischemic Attacks (TIA), Other Neuro Impairments/Disorders - LOC WITH FALLL Psychiatric History: Reports: Hx Anxiety Denies: Hx Attention Deficit Hyperactivity Disorder, Hx Autism, Hx Eating Disorder, Hx Oppositional [place] Disorder, Hx Depression, Hx Panic Disorder, Hx Post Traumatic Stress Disorder, Hx Inpatient Treatment, Hx Community Mental Health Tx, Hx Schizophrenia, Hx Bipolar Disorder, Hx Suicide Attempt, Hx of Violent Episodes Against Others, Hx Substance Abuse, Other Psychiatric Issues/ Disorders - Cancer History Cancer Type, Location and Year: skin cancer on right leg, removed Hx Hematologic Symptoms: No Hx Chemotherapy: No Hx Radiation Therapy: No Hx Palliative Cancer Treatment: No - Surgical History Surgical History: Yes Surgery Procedure, Year, and Place: left shoulder surgery Jul 08 2013 csections x 3. partial hysterectomy. 3 back surgeries, hardwear in place. right hip REPLACEMENT. LEFT KNEE RECONSTRUCTION. PACEMAKER PLACED-ISAURO- 2011. 3 C-SECTIONS. RIGHT SHOULDER ROTATOR CUFF REPAIR - 15 YEARS AGO. UMBILICAL HERNIA REPAIR Hx Anesthesia Reactions: Yes - PROPOFOL REACTION- THRASHING AND SCREAMING - Immunization History Date of Tetanus Vaccine: utd Date of Influenza Vaccine: utd Infectious Disease History: Yes Infectious Disease History: Reports: Hx Clostridium Difficile, Hx of Known/ Suspected MRSA Denies: Hx Hepatitis, Hx Human Immunodeficiency Virus (HIV), Hx Shingles, Hx Tuberculosis, Hx Known/Suspected VRE, Hx Known/Suspected VRSA - Family History Known Family History: Positive: Cardiac Disease - CAD, Diabetes, Other - Breast CA - Social History Occupation: Disabled Alcohol Use: None Hx Substance Use: No Substance Use Type: Reports: None Hx Tobacco Use: No Smoking Status (MU): Never Smoked Tobacco Have You Smoked in the Last Year: No Review of Systems Positive: Chills, Skin Diaphoresis Positive: Chest Pain - Left anterior Positive: Shortness Of Breath Negative: Nausea Positive: Myalgia - Left arm that radiates from the chest Neurological: Other - Negative lightheadedness or dizziness All Other Systems Reviewed And Are Negative: Yes Physical Exam - Summary Physical Exam Summary: Appearance: Well-appearing, obese woman lying in bed comfortably in no acute distress. Skin: Warm, dry, no obvious rash Eyes: sclera anicteric, no conjunctival pallor ENT: mucous membranes moist, pharynx appears normal Neck: Supple, nontender Respiratory: Clear to auscultation, no signs of respiratory distress Cardiovascular: Normal S1, S2. No murmurs. Normal distal pulses in tibial and radial bilaterally. No focal chest wall tenderness. Abdomen: Soft, nontender, normal active bowel sounds present Musculoskeletal: Normal, Strength/ROM Intact Neurological: A&Ox3, awake and alert, mentation is normal, speech is fluent and appropriate Psychiatric: affect is somewhat flat, she does appear somewhat depressed Triage Information Reviewed: Yes Vital Signs Reviewed: Yes Procedures - Sedation Patient Received Moderate/Deep Sedation with Procedure: No Diagnostics - Laboratory Result Diagrams: 06/18/19 01:22 06/18/19 01:22 Lab Statement: Any lab studies that have been ordered have been reviewed, and results considered in the medical decision making process. - Radiology Chest X-ray Radiology Interpretation Completed By: ED Physician Summary of Radiographic Findings: Chest X-ray IMPRESSION: no acute process. Reviewed and interpreted by Dr. Monte, pending official radiology report. - EKG 01:04 Cardiac Rate: NL - 72 BPM EKG Rhythm: Sinus Rhythm ST Segment: Normal Ectopy: None Summary of EKG Findings: EKG at 01:04 shows NSR at 72 BPM, St elevation in V2- V3 c/w LVH similar to prior EKG, P waves, QRS complex, and T waves are within normal limits, T waves and intervals are normal, no ischemic changes. This is a normal EKG. Reviewed and interpreted by Dr. Monte. 01:33 Cardiac Rate: NL - 72 BPM EKG Rhythm: Sinus Rhythm ST Segment: Normal Ectopy: None Summary of EKG Findings: EKG at 01:33 shows NSR at 72 BPM, stable ST elevation in V2-V3 c/w LVH, P waves, QRS complex, and T waves are within normal limits, T waves and intervals are normal, no ischemic changes. This is a normal EKG. Reviewed and interpreted by Dr. Monte. Chest Pain Course/Dx - Course Course Of Treatment: Patient is a 64 y/o F presenting to the ED via EMS for a chief complaint of constant left anterior chest pain that radiates to the left arm for the last hour. When the chest pain began, she was lying in bed. She describes the pain as a sharp sensation. Patient notes chills, shortness of breath, and diaphoresis. She denies nausea, lightheadedness, or dizziness. Any aggravating or alleviating factors are denied. Patient has a history of angina. On exam, obese woman lying on the stretcher in no acute distress. In the ED course, patient was given nitroglycerin 1 inch TOPICAL, Maalox 30 ml PO, lidocaine 2% 15 ml PO, lidocaine 5% 1 patch TRANSDERM, morphine 4 mg IV, and morphine 10 mg IV. Laboratory abnormal findings: RDW 17, sodium 132, chloride 92, BUN/Creatinine ratio 23.4, glucose 183, alkaline phosphatase 125. EKG at 01 :04 shows NSR at 72 BPM, St elevation in V2-V3 c/w LVH similar to prior EKG, P waves, QRS complex, and T waves are within normal limits, T waves and intervals are normal, no ischemic changes. This is a normal EKG. EKG at 01:33 shows NSR at 72 BPM, stable ST elevation in V2-V3 c/w LVH, P waves, QRS complex, and T waves are within normal limits, T waves and intervals are normal, no ischemic changes. This is a normal EKG. Chest X-ray IMPRESSION: no acute process. Pt's PMH is reviewed and is notable for frequent visits for various somatic pain complaints. She has been worked up for CAD and has had negative nuclear stress tests on at least 2 occasions, as well as several CTA of the chest looking for PE. She has a chronically elevated d-dimer. Clinical suspicion of PE or ACS is very low. Her pain is likely chest wall or other benign condition. I have attempted to reduce her pain with multiple doses of opioid analgesics, she says this has not helped. She is worried "something" will happen if she goes home, but is somewhat vague about what or why. I will watch her for a bit more, but ultimately she will have to be discharged. I do not see any utility in putting her in the hospital at this point, and I have nothing further to offer in terms of pain control. Patient will be discharged with a diagnosis of chest wall pain. Follow up with PCP as needed. - Diagnoses Provider Diagnoses: Chest wall pain Discharge ED - Sign-Out/Discharge Documenting (check all that apply): Patient Departure - Discharge - Discharge Plan Condition: Good Disposition: HOME Patient Education Materials: Chest Wall Pain (ED) Referrals: Olga Cavanaugh MD [Primary Care Provider] - Additional Instructions: I'm afraid there is nothing further I can do to help with this pain right now. Continue to use your pain medications at home. You might also try icing the area. - Billing Disposition and Condition Condition: GOOD Disposition: Home - Attestation Statements Document Initiated by Katelyn: Yes Documenting Scribe: Karen Grimm Provider For Whom Katelyn is Documenting (Include Credential): Aries Monte MD Scribe Attestation: I, Karen Grimm, scribed for Aries Monte MD on 06/19/19 at 0410. Scribe Documentation Reviewed: Yes Provider Attestation: The documentation as recorded by the Karen espino accurately reflects the service I personally performed and the decisions made by me, Aries Monte MD Status of Scrmarcy Document: Viewed
[2019-06-18] MEDS ORDERED: Nitro 2% OINT* (Nitroglycerin) 1 INCH/PAK PAK TOPICAL ONE (01:26)
[2019-06-18] MEDS ORDERED: Morphine 4 MG/ML VIAL (1 ml) 4 MG/ML VIAL IV ONE ×2 (01:26→02:15)
[2019-06-18 01:28] LABS: ABS Basophils 0.1 10^3/ul (0-0.2); ABS Lymphocytes 1.8 10^3/ul (1.0-4.8); ABS Monocytes 0.6 10^3/ul (0-0.8); ABS Neutrophils 7.5 10^3/ul (1.5-7.7); Eosinophil % 0.3 %; Hematocrit 36 % (35-47); Lymphocyte % 18.1 %; Mean Corpuscular HGB Conc 34 g/dL (31-36); Mean Corpuscular Hemoglobin 29 pg (27-31); Mean Corpuscular Volume 87 fL (80-97); Mean Platelet Volume 8.1 fL (7.4-10.4); Platelet Count 441 10^3/uL (150-450); Red Blood Count 4.15 10^6 /uL (3.70-4.87); Red Cell Distribution Width 17 % (10-15)
[2019-06-18 01:47] LABS: Albumin 4.3 g/dL (3.2-5.2); Albumin/Globulin Ratio 1.2 (1-3); BUN/Creatinine Ratio 23.4 (8-20); Calcium 9.6 mg/dL (8.6-10.3); EGFR African American 90.8 (>60); Globulin 3.6 g/dL (2-4); Potassium 3.5 mmol/L (3.5-5.0); Total Bilirubin 0.7 mg/dL (0.2-1.0); Total Protein 7.9 g/dL (6.4-8.9)
[2019-06-18 01:48] LABS: Troponin I 0.02 ng/mL (<0.03)
--- OUTSIDE RECORDS SUMMARY | 2019-06-18 02:05 | XMS REPORT | Continuity of Care Document ---
:1955 External Reference #:[id number] Author Name Inge Hull O.D. Address [address] [place] [address] Care Team Providers Name Role Phone Olga Cavanaugh M.D. - Internal Care Team Information [employer] Medicine Tyshawn Alonso M.D. - Care Team Information [employer] [phone] Cardiovascular Disease Problems Active Problems Provider Date Essential hypertension Onset: Type 2 diabetes mellitus Onset: Note: 2016 Neuropathy Onset: Hyperlipidemia Onset: Angioedema Onset: Hypothyroidism Onset: Deep venous thrombosis Onset: Angina pectoris Onset: Myocardial infarction Onset: Other specified epidermal thickening Inge Hull O.D. Onset: 06/16/2019 Presbyopia Inge Hull O.D. Onset: 06/16/2019 Regular astigmatism Inge Hull O.D. Onset: 06/16/2019 Myopia Inge Hull O.D. Onset: 06/16/2019 Nuclear senile cataract Inge Hull O.D. Onset: 06/16/2019 Social History Type Date Description Comments Sex Unknown ETOH Use Denies alcohol use Tobacco Use Start: Unknown Patient has never smoked Smoking Status Reviewed: 06/16/19 Patient has never smoked Allergies, Adverse Reactions, Alerts Active Allergies Reaction Severity Comments Date Penicillin 06/16/2019 Cipro 06/16/2019 Lopressor 06/16/2019 Sulfa 06/16/2019 NSAIDs 06/16/2019 Morphine 06/16/2019 Medications Active Medications SIG Qnty Indications Ordering Date Provider Vitamin D3 Unknown 50mcg (1999 Ut) Capsules Multi Vitamin Daily Unknown Tablets Aspirin [address] Spironolactone Take 1 Tablet By Unknown 25mg Mouth Every Day For Tablets Edema Torsemide Take 1 Tablet By Unknown 10mg Tablets Mouth Every Day For Edema Metoprolol Tartrate Unknown 25mg Tablets Xarelto Take 1 Tablet By Unknown 20mg Tablets Mouth Every Day For History Of DVT Lorazepam Take 1/2 Take 1 Unknown 1mg Tablets Tablet By Mouth Three Times Daily as Needed Maximum Daily Dose Of3 Per Day Gabapentin Take 1 Capsule By Unknown 100mg Mouth Three Times Capsules Daily For Neuropathy Irbesartan Take 1 Tablet By Unknown 150mg Mouth Every Day For Tablets Hypertension Oxycodone HCL Take 1 Tablet By Unknown 20mg Mouth Four Times Tablets Daily as Needed -- Maximum Daily Dose Of 4 Per Day Simvastatin Take 1 Tablet By Unknown 40mg Mouth Every Day For Tablets Hyperlipidemia Levothyroxine Sodium Take 1 Tablet By Unknown Mouth Every Day For 75mcg Tablets Hypothyroidism Diltiazem HCL ER Unknown Beads 360mg Caps ER 24HR Metformin HCL Take 1 Tablet By Unknown 1000mg Mouth Two Times Daily Tablets For Type 2 Diabetes Mellitus Zolpidem Tartrate Take 1 Tablet By Unknown 10mg Mouth AT Bedtime as Tablets Needed For Sleep -- Maximum Daily Dose 1 Loperamide HCL Unknown 2mg Capsules Acidophilus Unknown Lactobacillus Capsules Immunizations Description No Information Available Vital Signs Description No Information Available Results Description No Information Available Procedures Description No Information Available Medical Devices Description No Information Available Encounters Description No Information Available Assessments Date Code Description Provider 06/16/2019 E11.9 Type 2 diabetes mellitus without Inge Hull O.D. complications 06/16/2019 H25.13 Age-related nuclear cataract, bilateral Inge Hull O.D. 06/16/2019 L85.8 Other specified epidermal thickening Inge Hull O.D. 06/16/2019 H52.13 Myopia, bilateral Inge Hull O.D. 06/16/2019 H52.223 Regular astigmatism, bilateral Inge Hull O.D. 06/16/2019 H52.4 Presbyopia Inge Hull O.D. Plan of Treatment 06/16/2019 - Inge Hull O.D.E11.9 Type 2 diabetes mellitus without complicationsComments:You have diabetes. I do not detect any changes in both of your retinas from diabetes at this time. Proper control of your diabetes is important for the health of your eyes. Changes in your eyes from diabetes can happen without symptoms, so it is important that you have your eyes examined.Follow up:1 year You can expect to have your eyes dilated at your next visit. If Dr. Hull orders any additional testing, it may require extra time. We recommend that you bring sunglasses, as dilation drops often make you light sensitive until they wear off. We always recommend you bring someone to drive you home if you are uncomfortable driving with your eyes dilated. If you have any questions before your next visit, feel free to call our office at .H25.13 Age-related nuclear cataract, bilateralComments:You have been diagnosed with cataracts. If you are happy with your vision as it is now, then we willsee you at your next scheduled appointment. If you feel like your vision is getting worse before your scheduled appointment, please call Vanessa at [phone].L85.8 Other specified epidermal thickeningFollow up:referral to dermatology for evaluation of skin duymaeI66.13 Myopia, bilateralComments:You have Myopia, or near sightedness. I have given you a prescription for glasses.H52.223 Regular astigmatism, bilateralComments:Astigmatism is a common vision condition that happens when a person's cornea is not symmetrical. Dr. Hull has given you a prescription to correct for this.H52.4 PresbyopiaComments :You have presbyopia. This is when the lens in your eye loses the ability to change focus, and happens as we age. A pair of reading glasses will help you see up close. Functional Status Description No Information Available Mental Status Description No Information Available Referrals Description No Information Available
[2019-06-18] MEDS ORDERED: Lidocaine 2% VISCOUS* 15 ML UDC PO ONE (03:38)
[2019-06-18] MEDS ORDERED: Al Hydrox/Mg Hydrox/Simet LIQ* 30 ML UDC PO ONE (03:38)
[2019-06-18] MEDS ORDERED: Morphine 10 MG/ML VIAL (1 ml) IV ONE (04:43)
[2019-06-18] MEDS ORDERED: Lidocaine PATCH 5%* 1 PATCH TRANSDERM ONE (04:43)
[2019-06-18 06:42] VITALS: BP 128/56
[2019-06-18] MEDS ORDERED: Lidocaine Patch REMOVE* 1 NOTE MISC SCH (21:00)
== END 2019-06-18 06:30 | disposition home or self-care (01) ==
LOC: ED 01:07
DX: R07.89 Other chest pain (principal); E11.9 Type 2 diabetes mellitus without complications; E07.9 Disorder of thyroid, unspecified; I11.0 Hypertensive heart disease with heart failure; I50.9 Heart failure, unspecified; I25.10 Atherosclerotic heart disease of native coronary artery without angina pectoris; K21.9 Gastro-esophageal reflux disease without esophagitis; Z86.718 Personal history of other venous thrombosis and embolism; Z86.711 Personal history of pulmonary embolism; Z85.828 Personal history of other malignant neoplasm of skin; Z95.0 Presence of cardiac pacemaker; Z90.710 Acquired absence of both cervix and uterus; Z96.641 Presence of right artificial hip joint; Z79.899 Other long term (current) drug therapy; Z88.0 Allergy status to penicillin; Z88.1 Allergy status to other antibiotic agents; Z88.2 Allergy status to sulfonamides; Z88.8 Allergy status to other drugs, medicaments and biological substances
CPT/HCPCS: 36415; 71045; 80053; 83605; 84484; 85025; 93005; 96374; 96376; 99285; A9270-GY; J2270

== ENCOUNTER 2019-09-05 06:27 | Inpatient (IN) | payer MEDICARE, MEDICAID, OTHER ==
[2019-09-05 07:55] LABS: Hematocrit 34 % (35-47); Hemoglobin 11.3 g/dL (12.0-16.0); Mean Corpuscular HGB Conc 33 g/dL (31-36); Mean Corpuscular Hemoglobin 28 pg (27-31); Mean Corpuscular Volume 84 fL (80-97); Red Blood Count 4.07 10^6 /uL (3.70-4.87); Red Cell Distribution Width 18 % (10-15)
[2019-09-05 07:56] LABS: ALT 46 U/L (7-52); Albumin 4.2 g/dL (3.2-5.2); Albumin/Globulin Ratio 1.2 (1-3); Alkaline Phosphatase 132 U/L (34-104); BUN/Creatinine Ratio 28.6 (8-20); Blood Urea Nitrogen 22 mg/dL (6-24); CO2 Carbon Dioxide 28 mmol/L (22-32); Calcium 9.7 mg/dL (8.6-10.3); Chloride 99 mmol/L (101-111); EGFR African American 90.8 (>60); Globulin 3.6 g/dL (2-4); Glucose 127 mg/dL (70-100); Sodium 135 mmol/L (135-145); Total Protein 7.8 g/dL (6.4-8.9)
[2019-09-05 08:17] LABS: INR 1.13 (0.82-1.09)
[2019-09-05 08:24] LABS: White Blood Count 11.8 10^3/uL (3.5-10.8)
[2019-09-05 08:28] LABS: ABS Basophils 0.1 10^3/ul (0-0.2); ABS Lymphocytes 3.2 10^3/ul (1.0-4.8); ABS Monocytes 0.8 10^3/ul (0-0.8); Lymphocyte % 27.5 %; Mean Platelet Volume 9.6 fL (7.4-10.4); Nucleated Red Blood Cells % 0.1; Platelet Count 283 10^3/uL (150-450)
[2019-09-05 09:05] LABS: Anion Gap 8 mmol/L (2-11)
[2019-09-05] MEDS ORDERED: NS 0.9% 1000 ml BAG 1,000 ML IV ONE (11:31)
[2019-09-05] MEDS ORDERED: Iodixanol (CONTRAST) 320 MG/ML 100 ML SDV IV ONE (13:20)
[2019-09-05] MEDS ORDERED: Iodixanol (CONTRAST) 320 MG/ML 100 ML SDV IV SCH (13:29)
[2019-09-05 13:43] LABS: Potassium Redraw 4.4 mmol/L (3.5-5.0)
[2019-09-05] MEDS ORDERED: Furosemide 40 mg/4 ml IV VIAL IV SLOW PU ONE (14:34)
[2019-09-05 16:05] LABS: Urine Appearance Clear; Urine Bilirubin Negative (Negative); Urine Blood 3+ (Negative); Urine Color Yellow; Urine Glucose Negative (Negative); Urine Ketones Negative (Negative); Urine Nitrite Negative (Negative); Urine Protein Negative (Negative); Urine Specific Gravity 1.021 (1.010-1.030); Urine Urobilinogen Negative (Negative)
[2019-09-05 16:11] LABS: Urine Bacteria Absent (Absent); Urine Red Blood Cell Trace(0-2/hpf) (Absent); Urine Squamous Epithelial Cell Present (Absent); Urine White Blood Cell Trace(0-5/hpf) (Absent)
[2019-09-05] MEDS: Enoxaparin 40 MG/0.4 ML SYR(*) SUBCUT SCH ×2 (16:48→16:50)
[2019-09-05] MEDS: LORazepam 1 mg TAB (*) PO SCH (19:47)
[2019-09-06] MEDS: LORazepam 1 mg TAB (*) PO SCH ×2 (07:43→20:24)
[2019-09-06] MEDS: Enoxaparin 40 MG/0.4 ML SYR(*) SUBCUT SCH (15:36)
[2019-09-07] MEDS: guaiFENesin 100 mg/5 ml LIQ unit dose cup PO PRN ×3 (00:37→18:16)
[2019-09-07] MEDS: LORazepam 1 mg TAB (*) PO SCH ×2 (07:47→20:41)
[2019-09-07] MEDS: Enoxaparin 40 MG/0.4 ML SYR(*) SUBCUT SCH (14:22)
[2019-09-08 07:01] LABS: CO2 Carbon Dioxide 28 mmol/L (22-32); Calcium 7.9 mg/dL (8.6-10.3); Chloride 99 mmol/L (101-111); Sodium 135 mmol/L (135-145)
[2019-09-08 07:07] LABS: BUN/Creatinine Ratio 15.9 (8-20); Blood Urea Nitrogen 11 mg/dL (6-24); EGFR Non-African American 85.1 (>60); Glucose 108 mg/dL (70-100)
[2019-09-08 07:10] LABS: Anion Gap 8 mmol/L (2-11)
[2019-09-08] MEDS ORDERED: Levofloxacin 750 MG IVPREMIX(* 750 MG/150 ML BAG IVPB SCH (08:00)
[2019-09-08] MEDS: LORazepam 1 mg TAB (*) PO SCH ×2 (09:03→20:37)
[2019-09-08] MEDS: guaiFENesin 100 mg/5 ml LIQ unit dose cup PO PRN (09:04)
[2019-09-08 14:50] LABS: ABS Lymphocytes 1.2 10^3/ul (1.0-4.8); ABS Monocytes 0.3 10^3/ul (0-0.8); Hematocrit 31 % (35-47); Hemoglobin 10.3 g/dL (12.0-16.0); Lymphocyte % 47.2 %; Mean Corpuscular HGB Conc 33 g/dL (31-36); Mean Corpuscular Hemoglobin 28 pg (27-31); Mean Corpuscular Volume 84 fL (80-97); Mean Platelet Volume 8.4 fL (7.4-10.4); Nucleated Red Blood Cells % 0.1; Platelet Count 195 10^3/uL (150-450); Red Blood Count 3.72 10^6 /uL (3.70-4.87); Red Cell Distribution Width 18 % (10-15); White Blood Count 2.6 10^3/uL (3.5-10.8)
[2019-09-08] MEDS: Enoxaparin 40 MG/0.4 ML SYR(*) SUBCUT SCH (16:15)
[2019-09-08 18:18] LABS: Hematocrit 30 % (35-47); Hemoglobin 10.2 g/dL (12.0-16.0); Mean Corpuscular HGB Conc 34 g/dL (31-36); Mean Corpuscular Hemoglobin 28 pg (27-31); Mean Corpuscular Volume 84 fL (80-97); Mean Platelet Volume 8.7 fL (7.4-10.4); Platelet Count 204 10^3/uL (150-450); Red Blood Count 3.62 10^6 /uL (3.70-4.87); Red Cell Distribution Width 18 % (10-15); White Blood Count 2.5 10^3/uL (3.5-10.8)
[2019-09-08] MEDS: [UNRECOGNIZED DRUG - REMARK] PO SCH (18:19)
[2019-09-08 18:40] LABS: ALT 27 U/L (7-52); Albumin 3.6 g/dL (3.2-5.2); Albumin/Globulin Ratio 1.2 (1-3); Alkaline Phosphatase 86 U/L (34-104); BUN/Creatinine Ratio 14.9 (8-20); Blood Urea Nitrogen 11 mg/dL (6-24); CO2 Carbon Dioxide 31 mmol/L (22-32); Calcium 8.1 mg/dL (8.6-10.3); Chloride 96 mmol/L (101-111); EGFR Non-African American 78.5 (>60); Globulin 3.1 g/dL (2-4); Glucose 128 mg/dL (70-100); Sodium 134 mmol/L (135-145); Total Protein 6.7 g/dL (6.4-8.9)
[2019-09-08 19:01] LABS: Anion Gap 7 mmol/L (2-11)
[2019-09-08 19:10] LABS: ABS Lymphocytes 1.2 10^3/ul (1.0-4.8); ABS Monocytes 0.3 10^3/ul (0-0.8); Lymphocyte % 48.9 %; Nucleated Red Blood Cells % 0.2
[2019-09-09] MEDS: LORazepam 1 mg TAB (*) PO SCH ×2 (07:45→20:53)
[2019-09-09] MEDS: [UNRECOGNIZED DRUG - REMARK] PO SCH (07:47)
[2019-09-09] MEDS: guaiFENesin 100 mg/5 ml LIQ unit dose cup PO PRN ×2 (08:01→16:01)
[2019-09-09] MEDS: Prochlorperazine 5 mg/ml 2 ml VIAL (10 mg) IV PRN (12:49)
[2019-09-09] MEDS: Enoxaparin 40 MG/0.4 ML SYR(*) SUBCUT SCH (15:39)
[2019-09-09] MEDS ORDERED: [UNRECOGNIZED DRUG - REMARK] PO SCH (21:00)
[2019-09-10] MEDS: LORazepam 1 mg TAB (*) PO SCH ×2 (07:34→22:39)
[2019-09-10] MEDS: Prochlorperazine 5 mg/ml 2 ml VIAL (10 mg) IV PRN ×2 (09:46→23:09)
[2019-09-10 10:27] LABS: ABS Lymphocytes 1.2 10^3/ul (1.0-4.8); ABS Monocytes 0.2 10^3/ul (0-0.8); Hematocrit 32 % (35-47); Hemoglobin 10.8 g/dL (12.0-16.0); Lymphocyte % 47.7 %; Mean Corpuscular HGB Conc 33 g/dL (31-36); Mean Corpuscular Hemoglobin 28 pg (27-31); Mean Corpuscular Volume 83 fL (80-97); Mean Platelet Volume 8.1 fL (7.4-10.4); Nucleated Red Blood Cells % 0.1; Platelet Count 199 10^3/uL (150-450); Red Blood Count 3.92 10^6 /uL (3.70-4.87); Red Cell Distribution Width 18 % (10-15); White Blood Count 2.4 10^3/uL (3.5-10.8)
[2019-09-10] MEDS: Enoxaparin 40 MG/0.4 ML SYR(*) SUBCUT SCH (14:56)
[2019-09-11 06:38] LABS: Urine Appearance Cloudy; Urine Bilirubin Negative (Negative); Urine Blood 1+ (Negative); Urine Color Yellow; Urine Glucose Negative (Negative); Urine Ketones Negative (Negative); Urine Nitrite Negative (Negative); Urine Protein 2+(100 mg/dL) (Negative); Urine Specific Gravity 1.018 (1.010-1.030); Urine Urobilinogen Negative (Negative)
[2019-09-11 06:50] LABS: Urine Bacteria Absent (Absent); Urine Red Blood Cell 3+(>10/hpf) (Absent); Urine Squamous Epithelial Cell Present (Absent); Urine Transitional Epithelial Present (Absent); Urine White Blood Cell 3+(>20/hpf) (Absent)
[2019-09-11] MEDS: LORazepam 1 mg TAB (*) PO SCH ×2 (08:27→20:31)
[2019-09-11 12:27] LABS: ABS Lymphocytes 1.2 10^3/ul (1.0-4.8); ABS Monocytes 0.1 10^3/ul (0-0.8); Hematocrit 32 % (35-47); Hemoglobin 10.7 g/dL (12.0-16.0); Lymphocyte % 38.1 %; Mean Corpuscular HGB Conc 33 g/dL (31-36); Mean Corpuscular Hemoglobin 28 pg (27-31); Mean Corpuscular Volume 84 fL (80-97); Nucleated Red Blood Cells % 0.1; Platelet Count 224 10^3/uL (150-450); Red Blood Count 3.86 10^6 /uL (3.70-4.87); Red Cell Distribution Width 18 % (10-15); White Blood Count 3.1 10^3/uL (3.5-10.8)
[2019-09-11 12:49] LABS: BUN/Creatinine Ratio 14.9 (8-20); Calcium 8.8 mg/dL (8.6-10.3); EGFR African American 106.6 (>60); EGFR Non-African American 88.1 (>60); Potassium 3.8 mmol/L (3.5-5.0)
[2019-09-11 13:54] LABS: C Reactive Protein 69.95 mg/L (<8.01)
[2019-09-11] MEDS: Albuterol HFA INHALER 8 gm MDI INH SCH ×3 (14:45→19:45)
[2019-09-11] MEDS: Enoxaparin 40 MG/0.4 ML SYR(*) SUBCUT SCH (14:51)
[2019-09-11] MEDS: Prochlorperazine 5 mg/ml 2 ml VIAL (10 mg) IV PRN (18:19)
[2019-09-11] MEDS ORDERED: Albuterol HFA INHALER 8 gm MDI INH PRN (20:00)
[2019-09-11] MEDS ORDERED: Enoxaparin 80 MG/0.8 ML SYR(*) SUBCUT ONE (21:00)
[2019-09-11] MEDS: guaiFENesin 100 mg/5 ml LIQ unit dose cup PO PRN (23:44)
[2019-09-12] MEDS: guaiFENesin 100 mg/5 ml LIQ unit dose cup PO PRN ×2 (05:03→20:18)
[2019-09-12] MEDS: LORazepam 1 mg TAB (*) PO SCH ×2 (08:14→20:07)
[2019-09-12] MEDS: Enoxaparin 150 MG/ML SYR(*) SUBCUT SCH ×2 (08:16→20:03)
[2019-09-13 05:18] LABS: ABS Lymphocytes 1.7 10^3/ul (1.0-4.8); ABS Monocytes 0.3 10^3/ul (0-0.8); Eosinophil % 0.7 %; Hematocrit 31 % (35-47); Hemoglobin 10.2 g/dL (12.0-16.0); Lymphocyte % 41.8 %; Mean Corpuscular HGB Conc 33 g/dL (31-36); Mean Corpuscular Hemoglobin 28 pg (27-31); Mean Corpuscular Volume 84 fL (80-97); Mean Platelet Volume 7.9 fL (7.4-10.4); Nucleated Red Blood Cells % 0.1; Platelet Count 268 10^3/uL (150-450); Red Cell Distribution Width 17 % (10-15)
[2019-09-13 05:33] LABS: ALT 25 U/L (7-52); AST < 3 U/L (13-39); Albumin 3.6 g/dL (3.2-5.2); Alkaline Phosphatase 131 U/L (34-104); Anion Gap 6 mmol/L (2-11); BUN/Creatinine Ratio 16.4 (8-20); Blood Urea Nitrogen 10 mg/dL (6-24); C Reactive Protein 78.54 mg/L (<8.01); CO2 Carbon Dioxide 30 mmol/L (22-32); Calcium 8.8 mg/dL (8.6-10.3); Chloride 97 mmol/L (101-111); EGFR African American 118.7 (>60); EGFR Non-African American 98.1 (>60); Globulin 3.7 g/dL (2-4); Glucose 96 mg/dL (70-100); Sodium 133 mmol/L (135-145); Total Protein 7.3 g/dL (6.4-8.9)
[2019-09-13 06:10] LABS: LDH 368 U/L (140-271)
[2019-09-13] MEDS: Enoxaparin 150 MG/ML SYR(*) SUBCUT SCH ×2 (07:57→20:26)
[2019-09-13] MEDS: guaiFENesin 100 mg/5 ml LIQ unit dose cup PO PRN ×2 (08:36→13:53)
[2019-09-13] MEDS ORDERED: LORazepam 1 mg TAB (*) PO PRN (13:16)
[2019-09-13] MEDS: LORazepam 1 mg TAB (*) PO PRN (18:19)
[2019-09-14] MEDS: LORazepam 1 mg TAB (*) PO PRN ×4 (06:22→21:13)
[2019-09-14] MEDS: guaiFENesin 100 mg/5 ml LIQ unit dose cup PO PRN (07:30)
[2019-09-14] MEDS: Enoxaparin 150 MG/ML SYR(*) SUBCUT SCH (07:31)
[2019-09-15] MEDS: guaiFENesin 100 mg/5 ml LIQ unit dose cup PO PRN (03:39)
[2019-09-15] MEDS: LORazepam 1 mg TAB (*) PO PRN ×4 (03:39→21:43)
[2019-09-15] MEDS ORDERED: Furosemide 40 mg/4 ml IV VIAL IV ONE (12:24)
[2019-09-16] MEDS: LORazepam 1 mg TAB (*) PO PRN ×3 (05:06→16:22)
[2019-09-16] MEDS ORDERED: Enoxaparin 100 MG/ML SYR(*) SUBCUT SCH (19:00)
[2019-09-16] MEDS ORDERED: Enoxaparin 100 MG/ML SYR(*) ONE (20:04)
[2019-09-16] MEDS: Enoxaparin 150 MG/ML SYR(*) SUBCUT SCH (20:36)
[2019-09-17] MEDS: LORazepam 1 mg TAB (*) PO PRN ×3 (00:14→11:52)
[2019-09-17] MEDS: Enoxaparin 150 MG/ML SYR(*) SUBCUT SCH ×2 (08:23→19:48)
[2019-09-17 12:31] LABS: ABS Eosinophils 0.1 10^3/ul (0-0.6); ABS Lymphocytes 1.5 10^3/ul (1.0-4.8); ABS Monocytes 0.4 10^3/ul (0-0.8); Eosinophil % 2.1 %; Hematocrit 32 % (35-47); Hemoglobin 10.3 g/dL (12.0-16.0); Lymphocyte % 34.6 %; Mean Corpuscular HGB Conc 33 g/dL (31-36); Mean Corpuscular Hemoglobin 28 pg (27-31); Mean Corpuscular Volume 84 fL (80-97); Platelet Count 397 10^3/uL (150-450); Red Blood Count 3.76 10^6 /uL (3.70-4.87); Red Cell Distribution Width 18 % (10-15); White Blood Count 4.3 10^3/uL (3.5-10.8)
[2019-09-17 12:46] LABS: BUN/Creatinine Ratio 21.2 (8-20); C Reactive Protein 14.23 mg/L (<8.01); Calcium 8.9 mg/dL (8.6-10.3); EGFR African American 142.8 (>60); Potassium 3.8 mmol/L (3.5-5.0)
[2019-09-17 15:57] LABS: TSH (Thyroid Stimulating Horm) 1.56 mcIU/mL (0.34-5.60)
[2019-09-18] MEDS: LORazepam 1 mg TAB (*) PO PRN ×3 (00:10→17:48)
[2019-09-18] MEDS: DOXYcycline 100 MG in NS 0.9% 250 ml 250 ML IVPB SCH ×2 (03:19→15:23)
[2019-09-18] MEDS: Enoxaparin 150 MG/ML SYR(*) SUBCUT SCH (08:03)
[2019-09-18] MEDS ORDERED: Irbesartan/Hydrochlor 150/12.5 TAB PO SCH (09:00)
[2019-09-18] MEDS: Multivitamins/Minerals TAB PO SCH (10:01)
[2019-09-18] MEDS ORDERED: Senna TAB 8.6 mg TAB PO ONE (11:41)
[2019-09-18] MEDS ORDERED: hydrALAZINE 20 mg/ml 1 ML Vial IV IV SLOW PU ONE (19:00)
[2019-09-19] MEDS: LORazepam 1 mg TAB (*) PO PRN ×4 (00:27→22:40)
[2019-09-19] MEDS: Multivitamins/Minerals TAB PO SCH (08:09)
[2019-09-19] MEDS: Senna TAB 8.6 mg TAB PO SCH (08:09)
[2019-09-20] MEDS: LORazepam 1 mg TAB (*) PO PRN ×3 (05:46→18:41)
[2019-09-20] MEDS: Multivitamins/Minerals TAB PO SCH (09:06)
[2019-09-20] MEDS: Senna TAB 8.6 mg TAB PO SCH (09:06)
[2019-09-20 17:15] LABS: ABS Basophils 0.1 10^3/ul (0-0.2); ABS Eosinophils 0.1 10^3/ul (0-0.6); ABS Lymphocytes 1.9 10^3/ul (1.0-4.8); ABS Monocytes 0.5 10^3/ul (0-0.8); Eosinophil % 1.6 %; Hematocrit 34 % (35-47); Hemoglobin 10.9 g/dL (12.0-16.0); Lymphocyte % 36.6 %; Mean Corpuscular HGB Conc 32 g/dL (31-36); Mean Corpuscular Hemoglobin 27 pg (27-31); Mean Corpuscular Volume 85 fL (80-97); Mean Platelet Volume 7.7 fL (7.4-10.4); Nucleated Red Blood Cells % 0.1; Platelet Count 480 10^3/uL (150-450); Red Blood Count 4.01 10^6 /uL (3.70-4.87); Red Cell Distribution Width 18 % (10-15); White Blood Count 5.2 10^3/uL (3.5-10.8)
[2019-09-20 17:31] LABS: BUN/Creatinine Ratio 16.3 (8-20); Calcium 9.5 mg/dL (8.6-10.3); EGFR African American 86.8 (>60); EGFR Non-African American 71.8 (>60); Potassium 4.2 mmol/L (3.5-5.0)
[2019-09-20 18:18] LABS: Vitamin D Total 25(OH) 22.3 ng/mL (20-50)
[2019-09-21] MEDS: LORazepam 1 mg TAB (*) PO PRN ×4 (00:40→20:32)
[2019-09-21] MEDS ORDERED: Furosemide 40 mg/4 ml IV VIAL IV SLOW PU ONE (08:32)
[2019-09-21] MEDS: Multivitamins/Minerals TAB PO SCH (08:48)
[2019-09-21] MEDS: Senna TAB 8.6 mg TAB PO SCH (08:48)
[2019-09-22] MEDS: LORazepam 1 mg TAB (*) PO PRN ×3 (03:41→19:52)
[2019-09-22] MEDS: Senna TAB 8.6 mg TAB PO SCH (08:07)
[2019-09-22] MEDS: Multivitamins/Minerals TAB PO SCH (08:08)
[2019-09-22] MEDS ORDERED: Polyethylene Glycol 3350 17 GM PACKET PO ONE (15:52)
[2019-09-23] MEDS: LORazepam 1 mg TAB (*) PO PRN ×3 (03:55→19:45)
[2019-09-23] MEDS: Senna TAB 8.6 mg TAB PO SCH (08:14)
[2019-09-23] MEDS: Polyethylene Glycol 3350 17 GM PACKET PO SCH (08:15)
[2019-09-23] MEDS: Multivitamins/Minerals TAB PO SCH (08:15)
[2019-09-23 17:51] LABS: ABS Eosinophils 0.1 10^3/ul (0-0.6); ABS Lymphocytes 2.1 10^3/ul (1.0-4.8); ABS Monocytes 0.6 10^3/ul (0-0.8); Eosinophil % 1.6 %; Hematocrit 32 % (35-47); Hemoglobin 10.6 g/dL (12.0-16.0); Lymphocyte % 38.4 %; Mean Corpuscular HGB Conc 33 g/dL (31-36); Mean Corpuscular Hemoglobin 28 pg (27-31); Mean Corpuscular Volume 85 fL (80-97); Nucleated Red Blood Cells % 0.1; Platelet Count 427 10^3/uL (150-450); Red Cell Distribution Width 19 % (10-15); White Blood Count 5.4 10^3/uL (3.5-10.8)
[2019-09-24] MEDS: LORazepam 1 mg TAB (*) PO PRN ×3 (04:35→21:47)
[2019-09-24] MEDS: Multivitamins/Minerals TAB PO SCH (22:10)
[2019-09-24] MEDS: Polyethylene Glycol 3350 17 GM PACKET PO SCH (22:10)
[2019-09-24] MEDS: Senna TAB 8.6 mg TAB PO SCH (22:10)
[2019-09-25] MEDS: LORazepam 1 mg TAB (*) PO PRN ×3 (06:22→18:32)
[2019-09-25] MEDS: Multivitamins/Minerals TAB PO SCH (08:09)
[2019-09-25] MEDS: Polyethylene Glycol 3350 17 GM PACKET PO SCH (08:10)
[2019-09-25] MEDS: Senna TAB 8.6 mg TAB PO SCH (08:10)
[2019-09-26] MEDS: LORazepam 1 mg TAB (*) PO PRN ×3 (00:26→12:58)
[2019-09-26] MEDS: Senna TAB 8.6 mg TAB PO SCH (09:23)
[2019-09-26] MEDS: Multivitamins/Minerals TAB PO SCH (09:23)
[2019-09-26] MEDS: Polyethylene Glycol 3350 17 GM PACKET PO SCH (12:58)
[2019-09-26] MEDS: LORazepam 1 mg TAB (*) PO SCH (20:34)
[2019-09-27] MEDS: Polyethylene Glycol 3350 17 GM PACKET PO SCH (07:57)
[2019-09-27] MEDS: Multivitamins/Minerals TAB PO SCH (08:00)
[2019-09-27] MEDS: Senna TAB 8.6 mg TAB PO SCH (08:03)
[2019-09-27] MEDS: LORazepam 1 mg TAB (*) PO SCH ×2 (08:04→13:14)
[2019-09-27 09:13] LABS: ABS Basophils 0.1 10^3/ul (0-0.2); ABS Eosinophils 0.1 10^3/ul (0-0.6); ABS Lymphocytes 2.3 10^3/ul (1.0-4.8); ABS Monocytes 0.6 10^3/ul (0-0.8); Eosinophil % 1.5 %; Hematocrit 32 % (35-47); Hemoglobin 10.5 g/dL (12.0-16.0); Lymphocyte % 40.7 %; Mean Corpuscular HGB Conc 33 g/dL (31-36); Mean Corpuscular Hemoglobin 29 pg (27-31); Mean Corpuscular Volume 86 fL (80-97); Mean Platelet Volume 7.9 fL (7.4-10.4); Platelet Count 358 10^3/uL (150-450); Red Blood Count 3.68 10^6 /uL (3.70-4.87); Red Cell Distribution Width 19 % (10-15); White Blood Count 5.6 10^3/uL (3.5-10.8)
[2019-09-27 09:29] LABS: BUN/Creatinine Ratio 22.8 (8-20); C Reactive Protein 11.53 mg/L (<8.01); Calcium 9.4 mg/dL (8.6-10.3); EGFR African American 128.4 (>60); EGFR Non-African American 106.1 (>60)
[2019-09-27 13:20] VITALS: BP 140/64
== END 2019-09-27 14:00 | disposition swing bed (61) | DRG 177 ==
LOC: ED 06:27 → MED 14:12 → OBSVTOIN 09-07 17:31 → ICU 09-12 14:16 → MED 09-15 12:27
PROVIDERS: ADMIT Internal Medicine; ATTEND Internal Medicine